=== PATIENT | male | born 1965 | race American Indian/Alaskan Native ===

== ENCOUNTER 2017-03-19 22:43 | Emergency (ER) | payer OTHER ==
[~2017-03-19] VITALS: Ht 180.3 cm; Wt 70.3 kg
[~2017-03-19 22:43] MED LIST: IBUPROFEN800 MG PO; NORCO 5-325 TA1 EACH PO; NYSTATIN100000 UN1 PO
== END 2017-03-19 23:19 | disposition home or self-care (01) ==
LOC: ED 22:43
DX: Z00.8 Encounter for other general examination (principal); R40.0 Somnolence
CPT/HCPCS: 99282

== ENCOUNTER 2017-07-12 19:12 | Emergency (ER) | payer OTHER ==
[~2017-07-12] VITALS: Ht 180.3 cm; Wt 70.3 kg
[2017-07-12] MEDS ORDERED: NYSTATIN100000 UN1 PO (19:48)
== END 2017-07-12 20:04 | disposition home or self-care (01) ==
LOC: ED 19:12
DX: K14.0 Glossitis (principal); F17.200 Nicotine dependence, unspecified, uncomplicated; Z86.19 Personal history of other infectious and parasitic diseases
CPT/HCPCS: 99282

== ENCOUNTER 2017-07-20 06:39 | Emergency (ER) | payer OTHER ==
[~2017-07-20] VITALS: Ht 180.3 cm; Wt 70.3 kg
[2017-07-20] MEDS ORDERED: ZITHROMAX250 MG PO (10:27)
== END 2017-07-20 10:45 | disposition home or self-care (01) ==
LOC: ED 06:39
DX: S20.211A Contusion of right front wall of thorax, initial encounter (principal); J40 Bronchitis, not specified as acute or chronic; F17.200 Nicotine dependence, unspecified, uncomplicated; X58.XXXA Exposure to other specified factors, initial encounter
CPT/HCPCS: 71020; 80053; 81001; 83690; 85025; 99283; G0480

== ENCOUNTER 2017-08-03 18:29 | Emergency (ER) | payer OTHER ==
[~2017-08-03] VITALS: Ht 180.3 cm; Wt 70.3 kg
[~2017-08-03 18:29] MED LIST changes: +ZITHROMAX250 MG PO
== END 2017-08-03 20:35 | disposition home or self-care (01) ==
LOC: ED 18:29
DX: S20.211A Contusion of right front wall of thorax, initial encounter (principal); F17.200 Nicotine dependence, unspecified, uncomplicated; Z86.19 Personal history of other infectious and parasitic diseases; Z79.2 Long term (current) use of antibiotics; W19.XXXA Unspecified fall, initial encounter; Y92.410 Unspecified street and highway as the place of occurrence of the external cause
CPT/HCPCS: 71020; 74177; 80053; 85025; 99284; G0480; Q9967

== ENCOUNTER 2017-08-25 16:08 | Emergency (ER) | payer OTHER ==
[~2017-08-25] VITALS: Ht 180.3 cm; Wt 70.3 kg
--- OUTSIDE RECORDS SUMMARY | ~2017-08-25 | XMS | Clinical Summary ---
Demographics + + + | Address | [address] | | | [place] [address] | + + + | Home Phone | | + + + | Preferred Language | Unknown | + + + | Marital Status | | + + + | Druze Affiliation | NON | + + + [...] MANUELA BARRERA | | [address] | [address] | +------+ + + + +-------+ Care Team Providers + +------+ + | Care Star Route Mail Driver Name | Role | Phone | + +------+ + PP | Unavailable | + +------+ + Source Comments BRAX[facility] is fully live on both [facility] Amb[facility] and [facility] InPatient.[facility] Allergies Not on File Current Medications Not [...]
== END 2017-08-25 16:20 | disposition home or self-care (01) ==
LOC: ED 16:08
DX: K13.70 Unspecified lesions of oral mucosa (principal)

== ENCOUNTER 2017-08-29 17:49 | Emergency (ER) | payer OTHER ==
[~2017-08-29] VITALS: Ht 180.3 cm; Wt 70.3 kg
--- OUTSIDE RECORDS SUMMARY | ~2017-08-29 | XMS | Clinical Summary ---
Demographics + + + | Address | [address] | | | [place] [address] | + + + | Home Phone | | + + + | Preferred Language | Unknown | + + + | Marital Status | | + + + | Jain Affiliation | NON | + + + [...] MANUELA BARRERA | | [address] | [address] | +------+ + + + +-------+ Care Team Providers + +------+ + | Care Toys And Games Hand Finisher Name | Role | Phone | + +------+ + PP | Unavailable | + +------+ + Source Comments [facility] is fully live on both [facility] Amb[facility] and [facility] InPatient.[facility] Allergies Not on File Current Medications [...]
[2017-08-29] MEDS ORDERED: NYSTATIN100000 UN1 PO (19:04)
== END 2017-08-29 19:28 | disposition home or self-care (01) ==
LOC: ED 17:49
DX: B37.0 Candidal stomatitis (principal); F17.200 Nicotine dependence, unspecified, uncomplicated
CPT/HCPCS: 99283

== ENCOUNTER 2017-09-11 22:34 | Emergency (ER) | payer OTHER ==
[~2017-09-11] VITALS: Ht 180.3 cm; Wt 70.3 kg
[2017-09-11] MEDS ORDERED: NYSTATIN100000 UN1 PO (23:14)
== END 2017-09-11 23:39 | disposition home or self-care (01) ==
LOC: ED 22:34
DX: K14.0 Glossitis (principal); F17.200 Nicotine dependence, unspecified, uncomplicated; Z86.19 Personal history of other infectious and parasitic diseases
CPT/HCPCS: 99282

== ENCOUNTER 2017-10-19 17:19 | Emergency (ER) | payer OTHER ==
[~2017-10-19] VITALS: Ht 180.3 cm; Wt 70.3 kg
--- OUTSIDE RECORDS SUMMARY | ~2017-10-19 | XMS | Clinical Summary ---
Demographics + + + | Address | [address] | | | [place] [address] | + + + | Home Phone [...] MANUELA BARRERA | | [address] | [address] | +------+ + + + +-------+ Care Team Providers + +------+ + | Care Anesthesia Technician Name | Role | Phone | + +------+ + PP | Unavailable | + +------+ + Source Comments [facility] is fully live on both [facility] Ambulatory and [facility] InPatient.[facility] Allergies Not on File Current Medications Not [...]
--- OUTSIDE RECORDS SUMMARY | ~2017-10-19 | XMS | Clinical Summary ---
Demographics + + + | Address | [address] | | | [place] [address] | + + + | Home Phone [...] MANUELA BARRERA | | [address] | [address] | +------+ + + + +-------+ Care Team Providers + +------+ + | Care Bush Regenerator Name | Role | Phone | + +------+ + PP | Unavailable | + +------+ + Source Comments [facility] is fully live on both [facility] Ambulatory and [facility] InPatient.[facility] Allergies Not on File Current Medications [...]
== END 2017-10-19 18:00 | disposition home or self-care (01) ==
LOC: ED 17:19
DX: B37.9 Candidiasis, unspecified (principal); F17.200 Nicotine dependence, unspecified, uncomplicated; Z86.19 Personal history of other infectious and parasitic diseases
CPT/HCPCS: 99283

== ENCOUNTER 2017-10-20 18:51 | Emergency (ER) | payer OTHER ==
[~2017-10-20] VITALS: Ht 180.3 cm; Wt 70.3 kg
--- OUTSIDE RECORDS SUMMARY | 2017-10-20 19:11 | XMS | Clinical Summary ---
Demographics + + + | Address | [address] | | | [place] [address] | + + + | Home Phone | | + + + | Preferred Language | Unknown | + + + | Marital Status | | + + + | Orthodoxy Affiliation | NON | + + + | Race | White | + + + | Ethnic Group | Not or | + + + Author + + + | Author | NON REVENUE LOCATIONS | + + + | Organization | NON REVENUE LOCATIONS | + + + | Address | Unknown | + + + | Phone | Unavailable | + + + Support +------+ + + + +-------+ | Name | Relationship | Address | Phone | +------+ + + + +-------+ ECON | [address] | | [place] | [address] | +------+ + + + +-------+ Care Team Providers + +------+ + | Care Curb Hop Name | Role | Phone | + +------+ + PP | Unavailable | + +------+ + Source Comments [facility] is fully live on both [facility] Amb[facility] and [facility] InPatient.[facility] Allergies Not on File Current Medications Not on file Active Problems Not on file Social History + +-------+ +--------+------+ | Tobacco Use | Types | Packs/Day | Years | Date | | | | | Used | | + +-------+ +--------+------+ | Never Assessed | | | | | + +-------+ +--------+------+ + + + | Sex Assigned at | Date Recorded | | | | + + + | Not on file | | + + + Plan of Treatment + + + + + | Health Maintenance | Due Date | Last Done | Comments | + + + + + | INFLUENZA VACCINE | | | | | (FLU SHOT) | 7 | | | + + + + + Results Not on filefrom Last 3 Months"
--- OUTSIDE RECORDS SUMMARY | 2017-10-20 19:11 | XMS | Clinical Summary ---
Demographics + + + | Address | [address] | | | [place] [address] | + + + | Home Phone | | + + + | Preferred Language | Unknown | + + + | Marital Status | | + + + | Spiritism Affiliation | NON | + + + [...] MANUELA BARRERA | | [address] | [address] | +------+ + + + +-------+ Care Team Providers + +------+ + | Care Wireless Cellular Technician Name | Role | Phone | + +------+ + PP | Unavailable | + +------+ + Source Comments [facility] is fully live on both [facility] Amb[facility] and [facility] InPatient.[facility] Allergies Not on File Current Medications Not [...]
== END 2017-10-20 19:28 | disposition home or self-care (01) ==
LOC: ED 18:51
DX: K14.0 Glossitis (principal); F17.200 Nicotine dependence, unspecified, uncomplicated
CPT/HCPCS: 99282

== ENCOUNTER 2017-11-01 05:46 | Emergency (ER) | payer OTHER ==
[~2017-11-01] VITALS: Ht 180.3 cm; Wt 70.3 kg
--- OUTSIDE RECORDS SUMMARY | ~2017-11-01 | XMS | Clinical Summary ---
Demographics + + + | Address | [address] | | | [place] [address] | + + + | Home Phone | | + + + | Preferred Language | Unknown | + + + | Marital Status | | + + + | Baptist Affiliation | NON | + + + [...] MANUELA BARRERA | | [address] | [address] | +------+ + + + +-------+ Care Team Providers + +------+ + | Care Tonsorial Artist Name | Role | Phone | + +------+ + PP | Unavailable | + +------+ + Source Comments [facility] is fully live on both [facility] Ambulatory and [facility] InPatient.[facility] Allergies Not on File Current [...]
--- OUTSIDE RECORDS SUMMARY | ~2017-11-01 | XMS | Clinical Summary ---
Demographics + + + | Address | [address] | | | [place] [address] | + + + | Home Phone [...] MANUELA BARRERA | | [address] | [address] | +------+ + + + +-------+ Care Team Providers + +------+ + | Care Creative Recruiter Name | Role | Phone | + +------+ + PP | Unavailable | + +------+ + Source Comments [facility] is fully live on both [facility] Ambulatory and [facility] InPatient.[facility] Allergies Not on File Current Medications [...]
[2017-11-01] MEDS ORDERED: NYSTATIN100000 UN1 PO (06:28)
== END 2017-11-01 06:39 | disposition home or self-care (01) ==
LOC: ED 05:46
DX: K14.0 Glossitis (principal); F17.200 Nicotine dependence, unspecified, uncomplicated
CPT/HCPCS: 99283

== ENCOUNTER → 2017-11-03 | Emergency (ER) | payer OTHER ==
[~2017-11-03] VITALS: Ht 180.3 cm; Wt 70.3 kg
[~2017-11-03] MED LIST changes: +DIFLUCAN100 MG PO; +ESSENTIAL DAIL1 EACH PO; +OMEPRAZOLE20 MG PO; +PANTOPRAZOLE SO40 MG PO
--- OUTSIDE RECORDS SUMMARY | ~2017-11-03 | XMS | Clinical Summary ---
Demographics + + + | Address | [address] | | | [place] [address] | + + + | Home Phone | | + + + | Preferred Language | Unknown | + + + | Marital Status | | + + + | Roman Catholic Affiliation | NON | + + [...] MANUELA BARRERA | | [address] | [address] | +------+ + + + +-------+ Care Team Providers + +------+ + | Care Learning Support Specialist Name | Role | Phone | + +------+ + PP | Unavailable | + +------+ + Source Comments [facility] is fully live on both [facility] Ambulatory and [facility] InPatient.[facility] Allergies Not on File Current Medications [...]
--- OUTSIDE RECORDS SUMMARY | ~2017-11-03 | XMS | Clinical Summary ---
Demographics + + + | Address | [address] | | | [place] [address] | + + + | Home Phone [...] MANUELA BARRERA | | [address] | [address] | +------+ + + + +-------+ Care Team Providers + +------+ + | Care Piecer Up Name | Role | Phone | + +------+ + PP | Unavailable | + +------+ + Source Comments [facility] is fully live on both [facility] Ambulatory and [facility] InPatient.[facility] Allergies Not [...]
== END ==
LOC: ED 01:31
DX: K14.0 Glossitis (principal); F17.200 Nicotine dependence, unspecified, uncomplicated; Z79.899 Other long term (current) drug therapy
CPT/HCPCS: 99282

== ENCOUNTER 2018-01-07 02:26 | Emergency (ER) | payer OTHER ==
[~2018-01-07] VITALS: Ht 180.3 cm; Wt 70.3 kg
--- OUTSIDE RECORDS SUMMARY | ~2018-01-07 | XMS | Clinical Summary ---
Demographics + + + | Address | [address] | | | [place] [address] | + + + | Home Phone [...] | + + + + + | LATOYA RAMIREZ | ECON | [address] | | | | | [place], [place] | | | | | [address] | | + + + + + Care Team Providers + +------+ + | Care Woodworker Name | Role | Phone | + +------+ + PP | Unavailable | + +------+ + Source Comments [facility] is fully live on both [facility] Ambulatory and [facility] InPatient.[facility] & [facility] Allergies Not on File Current Medications [...] | | | | (FLU SHOT) | 8 | | | + + + + + Results Not on filefrom Last 3 Months"
--- OUTSIDE RECORDS SUMMARY | ~2018-01-07 | XMS | Clinical Summary ---
Demographics + + + | Address | [address] | | | [place] [address] | + + + | Home Phone [...] [place] | | | | | [address] | | + + + + + Care Team Providers + +------+ + | Care Loss Prevention Detective Name | Role | Phone | + +------+ + PP | Unavailable | + +------+ + Source Comments [facility] is fully live on both [facility] Ambulatory and [facility] InPatient.[facility] & [facility] Allergies Not on File Current [...]
[~2018-01-07 02:26] MED LIST changes: -DIFLUCAN100 MG PO; -ESSENTIAL DAIL1 EACH PO; -OMEPRAZOLE20 MG PO; -PANTOPRAZOLE SO40 MG PO
== END 2018-01-07 03:34 | disposition home or self-care (01) ==
LOC: ED 02:26
DX: S93.502A Unspecified sprain of left great toe, initial encounter (principal); S93.505A Unspecified sprain of left lesser toe(s), initial encounter; F17.200 Nicotine dependence, unspecified, uncomplicated; W23.0XXA Caught, crushed, jammed, or pinched between moving objects, initial encounter
CPT/HCPCS: 73630; 99283

== ENCOUNTER 2018-01-16 07:22 | Emergency (ER) | payer OTHER ==
[~2018-01-16] VITALS: Ht 180.3 cm; Wt 70.3 kg
--- OUTSIDE RECORDS SUMMARY | ~2018-01-16 | XMS | Clinical Summary ---
Demographics + + + | Address | [address] | | | [place] [address] | + + + | Home Phone [...] [place] | | | | | [address] | | + + + + + Care Team Providers + +------+ + | Care Information Security Associate Name | Role | Phone | + +------+ + PP | Unavailable | + +------+ + Source Comments B[facility] is fully live on both [facility] Ambulatory and [facility] InPatient.[facility] & [facility] Allergies Not on File Current Medications [...]
--- OUTSIDE RECORDS SUMMARY | ~2018-01-16 | XMS | Clinical Summary ---
Demographics + + + | Address | [address] | | | [place] [address] | + + + | Home Phone [...] [place] | | | | | [address] | | + + + + + Care Team Providers + +------+ + | Care Gear Lapper Name | Role | Phone | + +------+ + PP | Unavailable | + +------+ + Source Comments B[facility] is fully live on both [facility] Ambulatory and [facility] InPatient.[facility] Allergies Not on File Current Medications Not [...]
[2018-01-16] MEDS ORDERED: OMEPRAZOLE20 MG PO (10:41)
[2018-01-16] MEDS ORDERED: ESSENTIAL DAIL1 EACH PO (10:41)
[2018-01-17] MEDS ORDERED: DIFLUCAN100 MG PO (17:05)
[2018-01-17] MEDS ORDERED: PANTOPRAZOLE SO40 MG PO (17:05)
== END 2018-01-16 10:50 | disposition home or self-care (01) ==
LOC: ED 07:22
DX: K29.20 Alcoholic gastritis without bleeding (principal); F17.200 Nicotine dependence, unspecified, uncomplicated
CPT/HCPCS: 36415; 80053; 83690; 85025; 99283; J7030

== ENCOUNTER 2018-01-17 16:50 | Emergency (ER) | payer OTHER ==
[~2018-01-17] VITALS: Ht 180.3 cm; Wt 70.3 kg
--- OUTSIDE RECORDS SUMMARY | ~2018-01-17 | XMS | Clinical Summary ---
Demographics + + + | Address | [address] | | | [place] [address] | + + + | Home Phone | | + + + | Preferred Language | Unknown | + + + | Marital Status | | + + + | Faith Affiliation | NON | + + + [...] [place] | | | | | [address] | | + + + + + Care Team Providers + +------+ + | Care Dialysis Technician Name | Role | Phone | + +------+ + PP | Unavailable | + +------+ + Source Comments [facility] is fully live on both [facility] Ambulatory and [facility] InPatient.[facility] Allergies Not on File Current Medications Not [...]
--- OUTSIDE RECORDS SUMMARY | ~2018-01-17 | XMS | Clinical Summary ---
Demographics + + + | Address | [address] | | | [place] [address] | + + + | Home Phone [...] [place] | | | | | [address] | | + + + + + Care Team Providers + +------+ + | Care Tube Blower Name | Role | Phone | + +------+ + PP | Unavailable | + +------+ + Source Comments [facility] is fully live on both [facility] Ambulatory and [facility] InPatient.[facility] Allergies Not on File Current [...]
[~2018-01-17 16:50] MED LIST changes: +ESSENTIAL DAIL1 EACH PO; +OMEPRAZOLE20 MG PO
[2018-01-17] MEDS ORDERED: PANTOPRAZOLE SO40 MG PO (17:05)
[2018-01-17] MEDS ORDERED: DIFLUCAN100 MG PO (17:05)
== END 2018-01-17 17:10 | disposition home or self-care (01) ==
LOC: ED 16:50
DX: B37.0 Candidal stomatitis (principal); K21.9 Gastro-esophageal reflux disease without esophagitis; F17.200 Nicotine dependence, unspecified, uncomplicated; Z79.899 Other long term (current) drug therapy
CPT/HCPCS: 99283

== ENCOUNTER 2018-05-27 19:58 | Emergency (ER) | payer OTHER ==
[~2018-05-27] VITALS: Ht 180.3 cm; Wt 70.3 kg
--- OUTSIDE RECORDS SUMMARY | ~2018-05-27 | XMS | Clinical Summary ---
Demographics + + + | Address | [address] | | | [place] [address] | + + + | Home Phone [...] [place] | | | | | [address] | | + + + + + Care Team Providers + +------+ + | Care Dry Cell Tester Name | Role | Phone | + +------+ + PP | Unavailable | + +------+ + Source Comments BRAXTON is fully live on both [facility] Ambulatory and [facility] InPatient.[facility] Allergies Not on File Current [...] filefrom Last 3 Months Insurance + +--------+ +--------+-------+---------+ | Payer | Benefi | Subscriber | Type | Phone | Address | | | t Plan | ID | | | | | | / | | | | | | | Group | | | | | + +--------+ +--------+-------+---------+ | [employer] | [employer] | xxxxxxxxx | Agency | | | | SERVICE | | | | | | | | HEALTH | | | | | | | | | | | | | | SERVIC | | | | | | | E | | | | | + +--------+ +--------+-------+---------+ + +--------+ +--------+ + + | Guarantor Name | Accoun | Relation to | Date | Phone | Billing Address | | | t Type | Patient | of | | | | | | | | | | + +--------+ +--------+ + + | MIGUEL A RAMIREZ | Person | Self [birth year] | Home: | [address] | | | al/Fam | | 1965 | +- | [place], [place] | | | [place] | | | [phone] | [phone] | + +--------+ +--------+ + + | MIGUEL A RAMIREZ | Third | Self | [birth year] | Home: | [address] | | | Libertarian | | 1965 | +- | [place], [place] | | | Liabil | | | [phone] | [phone] | | | ity | | | | | + +--------+ +--------+ + +"
--- OUTSIDE RECORDS SUMMARY | ~2018-05-27 | XMS | Clinical Summary ---
Demographics + + + | Address | [address] | | | [place] [address] | + + + | Home Phone [...] [place] | | | | | [address] | | + + + + + Care Team Providers + +------+ + | Care Energy Scheduler Name | Role | Phone | + +------+ + PP | Unavailable | + +------+ + Source Comments BRAX[facility] is fully live on both [facility] Ambulatory and [facility] InPatient.[facility] Allergies Not on File Current Medications Not [...] | | | + +--------+ +--------+-------+---------+ | [facility] | [place] | xxxxxxxxx | Agency | | | [...] | [place] | | | [phone] | [phone] | + +--------+ +--------+ + + | MIGUEL A RAMIREZ | Third | Self | [birth year] | Home: | [address] | | | [employer] | | 1965 | +- | [place], [place] | | | Liabil | | | [phone] | [phone] | | | ity | | | | | + +--------+ +--------+ + +"
[~2018-05-27 19:58] MED LIST changes: +DIFLUCAN100 MG PO; +PANTOPRAZOLE SO40 MG PO
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
[2018-05-27] MEDS ORDERED: DIFLUCAN100 MG PO (20:33)
== END 2018-05-27 20:48 | disposition home or self-care (01) ==
LOC: ED 19:58
DX: B37.0 Candidal stomatitis (principal); F10.129 Alcohol abuse with intoxication, unspecified; F17.200 Nicotine dependence, unspecified, uncomplicated; Z79.899 Other long term (current) drug therapy
CPT/HCPCS: 99282

== ENCOUNTER 2019-01-26 00:30 | Emergency (ER) | payer OTHER ==
[~2019-01-26] VITALS: Ht 180.3 cm; Wt 70.3 kg
--- OUTSIDE RECORDS SUMMARY | ~2019-01-26 | XMS | Encounter Summary ---
Demographics + + + | Address | [address] | | | [place] [address] | + + + | Home Phone | | + + + | Preferred Language | Unknown | + + + | Marital Status | | + + + | Presybeterian Affiliation | NON | + + + [...] [place], [place] | | | | | [address] | | + + + + + Care Team Providers + +------+ + | Care Quill Skinner Name | Role | Phone | + +------+ + PCP | Unavailable | + +------+ + Encounter Details +--------+ + + + + | Date | Type | Department | Care Team | Description | +--------+ + + + + | 03/03/ | Respiratory | | Other, Faculty | | | 2005 | Therapy | | [phone] | | +--------+ + + + + [...] | + +--------+ + + + | DIAGNOSTICS | Routin | 03/03/2006 | | Results for this | | | e | 7:59 AM | | procedure are in the | | | | PDT | | results section. | + +--------+ + + + documented in this encounter Results DIAGNOSTICS (03/03/2006 7:59 AM PDT) + + + + + + | Component | Value | Ref Range | Performed | Pathologist | | | | | At | Signature | + + + + + + | [facility] | CONTINUOUS PULSE | | | | | DIAGNOSTICS | OXIMETRY IN USE. Kenny | | | | | | [facility] | | | | + + + [...] | + + + + + | [facility] | [address] | [place], [place] | | | DIAGNOSTICS - | [place]AR | [address] | | | PULMONARY FUNCTION | | | | + + + + + documented in this encounter Visit Diagnoses Not on filedocumented in this encounter"
--- OUTSIDE RECORDS SUMMARY | ~2019-01-26 | XMS | Clinical Summary ---
Demographics + + + | Address | [address] | | | [place] [address] | + + + | Home Phone | | + + + | Preferred Language | Unknown | + + + | Marital Status | | + + + | Yazdanism Affiliation | NON | + + + [...] | Yanni Antoine | ECON | [address] | | | | | [place], [place] | | | | | [address] | | + + + + + Care Team Providers + +------+ + | Care Boxing Trainer Name | Role | Phone | + +------+ + PP | Unavailable | + +------+ + Source Comments [facility] is fully live on both [facility] Ambulatory and [facility] InPatient.[facility] Allergies Not on File Medications Not on file Active Problems Not [...] recent travel history available. | + + Plan of Treatment + + + + + | Health Maintenance | Due Date | Last Done | Comments | + + + + + | Influenza (Flu) | | | | | vaccination (Season | 9 | | | | Ended) | | | | + + + + + Results Not on filefrom Last 3 Months Insurance + +--------+ +--------+-------+---------+--------+ | Payer | Benefi | Subscriber | Effect | Phone | Address | Type | | | t Plan | ID | sudheer | | | | | | / | | Dates | | | | | | Group | | | | | | + +--------+ +--------+-------+---------+--------+ | HEALTH | | xxxxxxxxx | Effect | | | Agency | | SERVICE | | | sudheer | | | | | | HEALTH | | for | | | | | | | | all | | | | | | SERVIC | | dates | | | | | | E | | | | | | + +--------+ +--------+-------+---------+--------+ + +--------+ +--------+ + + | Guarantor Name | Accoun | Relation to | Date | Phone | Billing Address | | | t Type | Patient | of | | | | | | | | | | + +--------+ +--------+ + + | Odilon Antoine | Person | Self | [birth year] | | [address] | | | al/Fam | | 1965 | [phone] | [place], [place] | | | [place] | | | [address] (Home) | [phone] | + +--------+ +--------+ + + | Odilon Antoine | Third | Self | [birth year] | | [address] | | | [employer] | | 1965 | [phone] | [place], [place] | | | Li[place] | | | 4 (Home) | [phone] | | | ity | | | | | + +--------+ +--------+ + +"
--- OUTSIDE RECORDS SUMMARY | ~2019-01-26 | XMS | Encounter Summary ---
Demographics + + + | Address | [address] [facility] [facility] | | | [place] [address] | + + + | Home Phone | | + + + | Preferred Language | Unknown | + + + | Marital Status | | + + + | Judaism Affiliation | NON | + + + [...] [place], [place] | | | | | [address] | | + + + + + Care Team Providers + +------+ + | Care Clinical Associate Name | Role | Phone | + +------+ + PCP | Unavailable | + +------+ + Encounter Details +--------+ + + + + | Date | Type | Department | Care Team | Description | +--------+ + + + + | 03/19/ | Respiratory | | Other, Faculty | | | 2005 | Therapy | | [phone] | | +--------+ + + + + [...] + | MEDICAL GAS/HUMIDITY | Routin | 03/19/2006 | | Results for this | | | e | 3:14 PM | | procedure are in the | | | | PDT | | results section. | + +--------+ + + + documented in this encounter Results MEDICAL GAS/HUMIDITY (03/19/2006 3:14 PM PDT) + + + + + + | Component | Value | Ref Range | Performed | Pathologist | | | | | At | Signature | + + + + + + | [facility] | OXYGEN OR HUMIDITY ON | | | | | GAS/HUMIDIT | LABY. Onur | | | | | Y | DYLAN RuedaP | | | | + + + [...] [facility] | [address] | [place], [place] | | | DIAGNOSTICS - | [address] | [address] | | | PULMONARY FUNCTION | | | | + + + + + documented in this encounter Visit Diagnoses Not on filedocumented in this encounter"
--- OUTSIDE RECORDS SUMMARY | ~2019-01-26 | XMS | Encounter Summary ---
Demographics + + + | Address | [address] [facility] | | | [place] [address] | + + + | Home Phone | | + + + | Preferred Language | Unknown | + + + | Marital Status | | + + + | Catholic Affiliation | NON | + + + [...] [place], [place] | | | | | [address] | | + + + + + Care Team Providers + +------+ + | Care Retail Wireless Sales Consultant Name | Role | Phone | + +------+ + PCP | Unavailable | + +------+ + Encounter Details +--------+ + + + + | Date | Type | Department | Care Team | Description | +--------+ + + + + | 02/15/ | Procedure - | | Record, Operation | Operative Report | | 2006 | | | | | | | Transcribed | | | | +--------+ + + [...] | + +--------+ + + + | OPERATION RECORD | | 02/15/2006 | | Results for this | | | | | | procedure are in the | | | | | | results section. | + +--------+ + + + documented in this encounter Results OPERATION RECORD (02/15/2006) + + | Transcriptions | + + | Interface, Bsa/Aml Compliance Officer In - 03/08/2006 2:08 AM PDT | | [id number] | | [id number] ASHLEY Peck [id number] | | | | Date: 02/15/2006 | | | | Attending Surgeon: Thai De La Garza M.D., DeepthiCRamiroS. | | | | Stone Belt Sander(s): Ángel Horne M.D. | | | | | | Preoperative Diagnosis(es): | | Respiratory failure and IV phlebitis. | | | | Postoperative Diagnosis(es): | | Respiratory failure and IV phlebitis. | | | | Procedures Performed: | | Insertion of left subclavian catheter. | | | | Anesthesia: | | General. | | | | Complications: | | None. | | | | Specimens: | | | | Indications: | | | | Procedure: | | In the supine position, the patient is prepped and draped in the usual | | sterile fashion about the left chest and neck; 8 mL of 1% lidocaine was | | inserted in the usual position and around the left clavicle. The needle | | was inserted into the left subclavian vein without complication. A | | guidewire was then placed with ease. The needle was removed. The skin was | | incised. The dilator is then inserted over the guidewire and removed. The | | triple-lumen catheter was then placed over the guidewire and inserted into | | the subclavian vein with ease. The guidewire was removed. The ports francisco | | and flushed x3 with ease. The catheter was then sutured in place with 3 | | sutures and a sterile dressing was applied. A postoperative chest x-ray | | shows no pneumothorax and good position of the central venous catheter. No | | complications noted. | | | | I do attest Dr. Thai De La Garza was present for the entirety of the case. | | | | | | | | | | Ángel Horne M.D. | | | | | | | | Thai De La Garza M.D., F.A.C.S. | | supervisor policy change clerks @ [employer] | | | | AWP / HS | | [phone] / [phone] / [phone] / | | | | | | | | | | | | Electronically signed by Thai De La Garza 03-07-2006 06:59:29 AM | + + documented in this encounter Visit Diagnoses Not on filedocumented in this encounter"
--- OUTSIDE RECORDS SUMMARY | ~2019-01-26 | XMS | Encounter Summary ---
Demographics + + + | Address | [address] [facility] | | | [place] [address] | + + + | Home Phone | | + + + | Preferred Language | Unknown | + + + | Marital Status | | + + + | Protestant Affiliation | NON | + + + [...] [place], [place] | | | | | [address] | | + + + + + Care Team Providers + +------+ + | Care Data Entry Assistant Name | Role | Phone | + +------+ + PCP | Unavailable | + +------+ + Encounter Details +--------+ + + + + | Date | Type | Department | Care Team | Description | +--------+ + + + + | 03/13/ | Respiratory | | Other, Faculty | | | 2005 | Therapy | | [phone] | | +--------+ + + + + [...] + | MEDICAL GAS/HUMIDITY | Routin | 03/13/2006 | | Results for this | | | e | 4:50 PM | | procedure are in the | | | | PDT | | results section. | + +--------+ + + + documented in this encounter Results MEDICAL GAS/HUMIDITY (03/13/2006 4:50 PM PDT) + + + + + + | Component | Value | Ref Range | Performed | Pathologist | | | | | At | Signature | + + + + + + | [facility] | HEATED HUMIDITY AT 24 % | | | | | GAS/HUMIDIT | OXYGEN. DYLAN GarzaP | | | | | Y |Yung Boss, YEAST WASHER | | | | + + + [...] [facility] | [address] | [place], [place] | | | DIAGNOSTICS - | [address] | [address] | | | PULMONARY FUNCTION | | | | + + + + + documented in this encounter Visit Diagnoses Not on filedocumented in this encounter"
--- OUTSIDE RECORDS SUMMARY | ~2019-01-26 | XMS | Encounter Summary ---
Demographics + + + | Address | [address] [facility] | | | [place] [address] | + + + | Home Phone | | + + + | Preferred Language | Unknown | + + + | Marital Status | | + + + | Buddhism Affiliation | NON | + + + | Race | White | + + + | Ethnic Group | Not or | + + + Author + + + | Author | [facility] | + + + | Organization | [facility] | + + + | Address | Unknown | + + + | Phone | Unavailable | + + + Support + + + + + | Name | Relationship | Address | Phone | + + + + + | Yanni Antoine | ECON | [address] | | | | | [place], [place] | | | | | [address] | | + + + + + Care Team Providers + +------+ + | Care Tv Host Name | Role | Phone | + +------+ + PCP | Unavailable | + +------+ + Encounter Details +--------+ + + + + | Date | Type | Department | Care Team | Description | +--------+ + + + + | 02/09/ | Results | General Surgery | Thai De La Garza, | | | 2005 | Only | [address] MD | | | | | [facility] | | | | | | Mailcode: [id number] | | | | | | [place] | | | | | | [address] [place], | | | | | | [place] [address] | | | | | | [phone] | | | +--------+ + + + [...] | + +--------+ + + + | X-RAY CHEST 1 VIEW | Routin | 02/09/2006 | | Results for this | | | e | 8:23 PM | | procedure are in the | | | | PDT | | results section. | + +--------+ + + + documented in this encounter Results CHEST 1 VIEW (02/09/2006 8:23 PM PDT) + + + + + + | Component | Value | Ref Range | Performed | Pathologist | | | | | At | Signature | + + + + + + | CHEST, 1 | Radiologist 1: CORINNA, | | | | | VIEW | VALDEMAR-Radiologist 2: | | | | | | KATHIE MORALES: AP | | | | | | chest. COMPARISON: None. | | | | | | CLINICAL HISTORY: | | | | | | Endotracheal tube, | | | | | | enteric tube, and right | | | | | | chesttube are seen. The | | | | | | right pneumothorax is | | | | | | not seen on this supine | | | | | | chestradiograph. Righ | | | | | | t pulmonary | | | | | | consolidation and ground | | | | | | glassopacities | | | | | | represent aspiration, | | | | | | atelectasis and | | | | | | contusion.Extensive soft | | | | | | tissue air is seen in | | | | | | the right lateral chest | | | | | | wall.There is left | | | | | | perihilar and lower lobe | | | | | | atelectasis. | | | | | | Pneumomediastinum is | | | | | | again seen. There are | | | | | | right-sided | | | | | | ribfractures, | | | | | | specifically involving | | | | | | the lateral 7th, 8th, | | | | | | and 9thribs. IMPRESSION: | | | | | | 1. Pneumothorax | | | | | | demonstrated on CT not | | | | | | seen on this supine | | | | | | chestradiograph. | | | | | | 2. Pneumomediastinum. | | | | | | 3. Right pulmonary | | | | | | consolidation and ground | | | | | | glass | | | | | | opacificationrepresentin | | | | | | g contusion, | | | | | | atelectasis, and | | | | | | aspiration. | | | | | | 4. Multiple | | | | | | right-sided rib | | | | | | fractures. 5. Mild | | | | | | left perihilar and lower | | | | | | lobe atelectasis. | | | | + + + + + + + + | Specimen | + + | | + + + +---------+ + + | Performing | Address | City/State/[facility] | Phone Number | | Organization | | | | + +---------+ + + | [facility] | | | | | RADIOLOGY | | | | + +---------+ + + documented in this encounter Visit Diagnoses Not on filedocumented in this encounter"
--- OUTSIDE RECORDS SUMMARY | ~2019-01-26 | XMS | Encounter Summary ---
Demographics + + + | Address | [address] | | | [place] [address] | + + + | Home Phone [...] [place], [place] | | | | | [address] | | + + + + + Care Team Providers + +------+ + | Care Marketing Community Liaison Name | Role | Phone | + +------+ + PCP | Unavailable | + +------+ + Encounter Details +--------+ + + + + | Date | Type | Department | Care Team | Description | +--------+ + + + + | 03/06/ | Respiratory | | Other, Faculty | | | 2005 | Therapy | | [phone] | | +--------+ + + + + [...] + | MEDICAL GAS/HUMIDITY | Routin | 03/06/2006 | | Results for this | | | e | 1:24 PM | | procedure are in the | | | | PDT | | results section. | + +--------+ + + + documented in this encounter Results MEDICAL GAS/HUMIDITY (03/06/2006 1:24 PM PDT) + + + + + + | Component | Value | Ref Range | Performed | Pathologist | | | | | At | Signature | + + + + + + | [facility] | HEATED HUMIDITY AT 24 % | | | | | GAS/HUMIDIT | OXYGENRamiro Bazan, | | | | | Y | ADJUSTER AND INSPECTOR | | | | + + + [...] [facility] | [address] | [place] | | | DIAGNOSTICS - | [address] | [address] | | | PULMONARY FUNCTION | | | | + + + + + documented in this encounter Visit Diagnoses Not on filedocumented in this encounter"
--- OUTSIDE RECORDS SUMMARY | ~2019-01-26 | XMS | Encounter Summary ---
Demographics + + + | Address | [address] [facility] | | | [place] [address] | + + + | Home Phone | | + + + | Preferred Language | Unknown | + + + | Marital Status | | + + + | Congregational Affiliation | NON | + + + | Race | White | + + + | Ethnic Group | Not or | + + + Author + + + | Author | [facility] | + + + | Organization | [facility] | + + + | Address | Unknown | + + + | Phone | Unavailable | + + + Support + + + + + | Name | Relationship | Address | Phone | + + + + + | Yanni Antoine | ECON | [address] | | | | | [place], [place] | | | | | [address] | | + + + + + Care Team Providers + +------+ + | Care Procedure Analyst Name | Role | Phone | + [...] | | | | | [facility] | | | | | | Mailcode: [id number] | | | | | | [place] | | | | | | [address] [place], | | | | | | [place] [address] | | | | | | [phone] | | | +--------+ + + + [...] + + | Performing | Address | City/State/[facility] | Phone Number | | Organization | | | | + +---------+ + + | [facility] OF | | | | | RADIOLOGY | | | | + +---------+ + + documented in this encounter Visit Diagnoses Not on filedocumented in this encounter"
--- OUTSIDE RECORDS SUMMARY | ~2019-01-26 | XMS | Encounter Summary ---
Demographics + + + | Address | [address] [facility] [facility] [facility] | | | [place] [address] | + + + | Home Phone | | + + + | Preferred Language | Unknown | + + + | Marital Status | | + + + | Mandaen Affiliation | NON | + + + [...] [place], [place] | | | | | [address] | | + + + + + Care Team Providers + +------+ + | Care Telegraph Installer Name | Role | Phone | + +------+ + PCP | Unavailable | + +------+ + Encounter Details +--------+ + + + + | Date | Type | Department | Care Team | Description | +--------+ + + + + | 03/15/ | Respiratory | | Other, Faculty | | | 2005 | Therapy | | [phone] | | +--------+ + + + + [...] + | MEDICAL GAS/HUMIDITY | Routin | 03/15/2006 | | Results for this | | | e | 9:40 AM | | procedure are in the | | | | PDT | | results section. | + +--------+ + + + documented in this encounter Results MEDICAL GAS/HUMIDITY (03/15/2006 9:40 AM PDT) + + + + + + | Component | Value | Ref Range | Performed | Pathologist | | | | | At | Signature | + + + + + + | [facility] | HEATED HUMIDITY AT 24 % | | | | | GAS/HUMIDIT | OXYGEN. DYLAN GarzaP | | | | | Y |Yung Boss, TRADING SPECIALIST | | | | + + + [...] [facility] | [address] | [place], [place] | | | DIAGNOSTICS - | [address] | [address] | | | PULMONARY FUNCTION | | | | + + + + + documented in this encounter Visit Diagnoses Not on filedocumented in this encounter"
--- OUTSIDE RECORDS SUMMARY | ~2019-01-26 | XMS | Encounter Summary ---
Demographics + + + | Address | [address] [facility] | | | [place] [address] | + + + | Home Phone | | + + + | Preferred Language | Unknown | + + + | Marital Status | | + + + | Quaker Affiliation | NON | + + + [...] [place], [place] | | | | | [address] | | + + + + + Care Team Providers + +------+ + | Care Security Supervisor Name | Role | Phone | + +------+ + PCP | Unavailable | + +------+ + Encounter Details +--------+ + + + + | Date | Type | Department | Care Team | Description | +--------+ + + + + | 03/04/ | Respiratory | | Other, Faculty | | | 2005 | Therapy | | [phone] | | +--------+ + + + + [...] this | | TREATMENTS | e | 2:34 AM | | procedure are in the | | | | PDT | | results section. | + +--------+ + + + documented in this encounter Results ADULT AND SHRINERS TREATMENTS (03/04/2006 2:34 AM PDT) + + + + + + | Component | Value | Ref Range | Performed | Pathologist | | | | | At | Signature | + + + + + + | [facility] | PATIENTS PAIN ASSESSED | | | | | TREATMENTS | AND WAS ZERO ON A SCALE | | | | | | OF ZERO TO 10. | | | | | | SUCTIONED .DIMINISHED | | | | | | BILATERAL . REQUIRES | | | | | | SUCTION: THICK YELLOW | | | | | | SPUTUM. BREATH | | | | | | SOUNDSIMPROVED MODERATE | | | | | | IMPROVEMENTS AFTER | | | | | | TREATMENT HEATED | | | | | | HUMIDITY AT 31 %OXYGEN. | | | | | | Hank Vora RRT | | | | + + + [...] + + + | [facility] | [address] | [place] | | | DIAGNOSTICS - | [address] | [address] | | | PULMONARY FUNCTION | | | | + + + + + documented in this encounter Visit Diagnoses Not on filedocumented in this encounter"
--- OUTSIDE RECORDS SUMMARY | ~2019-01-26 | XMS | Encounter Summary ---
Demographics + + + | Address | [address] [facility] | | | [place] [address] | + + + | Home Phone | | + + + | Preferred Language | Unknown | + + + | Marital Status | | + + + | Restoration Affiliation | NON | + + + [...] [place], [place] | | | | | [address] | | + + + + + Care Team Providers + +------+ + | Care Mate First Name | Role | Phone | + +------+ + PCP | Unavailable | + +------+ + Encounter Details +--------+ + + + + | Date | Type | Department | Care Team | Description | +--------+ + + + + | 02/19/ | Procedure - | | Record, Operation [...] + + | OPERATION RECORD | | 02/19/2006 | | Results for this | | | | | | procedure are in the | | | | | | results section. | + +--------+ + + + documented in this encounter Results OPERATION RECORD (02/19/2006) + + | Transcriptions | + + | Interface, Brass Burnisher In - 03/01/2006 2:08 AM PDT | | [id number] | | [id number] ASH[place] Peck [id number] | | | | Date: 02/19/2006 | | | | Attending Surgeon: Ranjit Dobson M.D. | | | | Senior Auditor(s): Ángel Horne M.D. | | Frankie Miles M.D. | | | | Postoperative Diagnosis(es): | | | | Procedures Performed: | | Flexible bronchoscopy and closed catheter sampling for culture. | | | | Anesthesia: | | | | Complications: | | None known. | | | | Specimens: | | 1. Brushings from the right lower lobe for culture. | | 2. Bronchioalveolar lavage aspiration. | | | | | | Indications: | | Mr. Donald is a trauma patient who has increasing opacity in the right lower | | lobe with fevers and increasing oxygen demands, unable to tolerate a trach | | collar. | | | | Findings: | | Fairly clear secretions in bilateral lungs. | | | | Procedure: | | The patient was preoxygenated with 100% FiO2. The flexible bronchoscopy | | was inserted and directed to the right lower lobe where aspirations were | | performed. The mucosa was pink without significant sign of inflammation to | | the level that was reached with the bronchoscope. The closed catheter | | sampling glass was inserted and directed downward through the bronchioles, | | and a culture was obtained. A range of the bronchoscopy including the | | branches of the left main stem were visualized and no significant | | inflammation or lesions were identified. | | | | Disposition: | | A postprocedure chest x-ray is to be performed. | | | | I attest that Dr. Dobson was present for the procedure. | | | | | | | | | | Ángel Horne M.D. | | | | | | | | Ranjit Dobson M.D. | | | | AWP / HS | | [id number] / [id number] / [id number] / [phone] | | | | | | | | | | | | Electronically signed by Ranjit Dobson 02-28-2006 04:32:41 PM | | [id number], Account: [id number], DocSeq: [id number] | | Persuant to medicare and medicaid regulations, I was present for the | | critical portions of the procedure. | | Electronically signed by Ranjit Dobson 02-28-2006 04:33:37 PM | + + documented in this encounter Visit Diagnoses Not on filedocumented in this encounter"
--- OUTSIDE RECORDS SUMMARY | ~2019-01-26 | XMS | Encounter Summary ---
Demographics + + + | Address | [address] | | | [place] [address] | + + + | Home Phone | | + + + | Preferred Language | Unknown | + + + | Marital Status | | + + + | Christianity Affiliation | NON | + + + [...] [place], [place] | | | | | [address] | | + + + + + Care Team Providers + +------+ + | Care Management Expert Name | Role | Phone | + +------+ + PCP | Unavailable | + +------+ + Encounter Details +--------+ + + + + | Date | Type | Department | Care Team | Description | +--------+ + + + + | 03/16/ | Respiratory | | Other, Faculty | | | 2005 | Therapy | | [phone] | | +--------+ + + + + [...] + | MEDICAL GAS/HUMIDITY | Routin | 03/16/2006 | | Results for this | | | e | 12:18 AM | | procedure are in the | | | | PDT | | results section. | + +--------+ + + + documented in this encounter Results MEDICAL GAS/HUMIDITY (03/16/2006 12:18 AM PDT) + + + + + + | Component | Value | Ref Range | Performed | Pathologist | | | | | At | Signature | + + + + + + | [facility] | HEATED HUMIDITY AT 24 % | | | | | GAS/HUMIDIT | AFIA. Irina Luo, | | | | | Y | COATER HAND | | | | + + + [...] [facility] | [address] | [place] | | | DIAGNOSTICS - | [address] | [address] | | | PULMONARY FUNCTION | | | | + + + + + documented in this encounter Visit Diagnoses Not on filedocumented in this encounter"
--- OUTSIDE RECORDS SUMMARY | ~2019-01-26 | XMS | Encounter Summary ---
Demographics + + + | Address | [address] [facility] | | | [place] [address] | + + + | Home Phone | | + + + | Preferred Language | Unknown | + + + | Marital Status | | + + + | Yarsani Affiliation | NON | + + + [...] [place], [place] | | | | | [address] | | + + + + + Care Team Providers + +------+ + | Care Automobile Accessories Installer Name | Role | Phone | + +------+ + PCP | Unavailable | + +------+ + Encounter Details +--------+ + + + + | Date | Type | Department | Care Team | Description | +--------+ + + + + | 03/16/ | Respiratory | | Other, Faculty | | | 2005 | Therapy | | [phone] | | +--------+ + + + + [...] for this | | | e | 8:15 AM | | procedure are in the | | | | PDT | | results section. | + +--------+ + + + documented in this encounter Results MEDICAL GAS/HUMIDITY (03/16/2006 8:15 AM PDT) + + + + + + | Component | Value | Ref Range | Performed | Pathologist | | | | | At | Signature | + + + + + + | [facility] | HEATED HUMIDITY AT 24 % | | | | | GAS/HUMIDIT | OXYGEN. PATIENTS | | | | | Y | PAIN ASSESSED AND WAS | | | | | | ZERO ON ASCALE OF ZERO | | | | | | TO 10. SUCTIONED . | | | | | | RHONCHI [address] . | | | | | | REQUIRES SUCTION:THICK | | | | | | YELLOW SPUTUM. BREATH | | | | | | SOUNDS IMPROVED Nelson | | | | | | MARLENE Gray | | | | + + + [...] + + + | [facility] | [address] | [place] | | | DIAGNOSTICS - | [address] | [address] | | | PULMONARY FUNCTION | | | | + + + + + documented in this encounter Visit Diagnoses Not on filedocumented in this encounter"
--- OUTSIDE RECORDS SUMMARY | ~2019-01-26 | XMS | Encounter Summary ---
Demographics + + + | Address | [address] [facility] [facility] | | | [place] [address] | + + + | Home Phone | | + + + | Preferred Language | Unknown | + + + | Marital Status | | + + + | Mandaeism Affiliation | NON | + + + [...] [place], [place] | | | | | [address] | | + + + + + Care Team Providers + +------+ + | Care Hair Preparer Name | Role | Phone | + +------+ + PCP | Unavailable | + +------+ + Encounter Details +--------+ + + + + | Date | Type | Department | Care Team | Description | +--------+ + + + + | 02/27/ | Respiratory | | Other, Faculty | | | 2005 | Therapy | | [phone] | | +--------+ + + + + [...] | ADULT AND SHRINERS | Routin | 02/27/2006 | | Results for this | | TREATMENTS | e | 10:00 PM | | procedure are in the | | | | PDT | | results section. | + +--------+ + + + documented in this encounter Results ADULT AND SHRINERS TREATMENTS (02/27/2006 10:00 PM PDT) + + + + + [...] | | | | | SOUNDS IMPROVED Noelle | | | | | | MARLENE Rothman | | | | + + + [...] [facility] | [address] | [place], [place] | | | DIAGNOSTICS - | [address] | [address] | | | PULMONARY FUNCTION | | | | + + + + + documented in this encounter Visit Diagnoses Not on filedocumented in this encounter"
--- OUTSIDE RECORDS SUMMARY | ~2019-01-26 | XMS | Encounter Summary ---
Demographics + + + | Address | [address] [facility] | | | [place] [address] | + + + | Home Phone | | + + + | Preferred Language | Unknown | + + + | Marital Status | | + + + | Holiness Affiliation | NON | + + + [...] [place], [place] | | | | | [address] | | + + + + + Care Team Providers + +------+ + | Care Fund Accountant Name | Role | Phone | + +------+ + PCP | Unavailable | + +------+ + Encounter Details +--------+ + + + + | Date | Type | Department | Care Team | Description | +--------+ + + + + | 03/20/ | Respiratory | | Other, Faculty | | | 2005 | Therapy | | [phone] | | +--------+ + + + + [...] | | | | | Y | SILO PAINTER | | | | + + + [...] [facility] | [address] | [place], [place] | | | DIAGNOSTICS - | [address] | [address] | | | PULMONARY FUNCTION | | | | + + + + + documented in this encounter Visit Diagnoses Not on filedocumented in this encounter"
--- OUTSIDE RECORDS SUMMARY | ~2019-01-26 | XMS | Encounter Summary ---
Demographics + + + | Address | [address] | | | [place] [address] | + + + | Home Phone [...] [place], [place] | | | | | [address] | | + + + + + Care Team Providers + +------+ + | Care Bilingual Trainer Name | Role | Phone | [...] as of this encounter Progress Notes Interface, Maintainer Sewer And Waterworks In - 02/19/2006 2:08 AM PDT [id number] ASHLEY Peck [id number] Clinic Date: 02/15/2006 Clinic: Operative Report Preoperative [...] it. Thai De La Garza M.D., F.A.C.S. energy crop farmer @ director of education and training Service [facility] / [phone] / [id number] / [id number] / [phone] documented i n this encounter Plan of Treatment Not on filedocumented as of this encounter Visit Diagnoses Not on filedocumented in this encounter"
--- OUTSIDE RECORDS SUMMARY | ~2019-01-26 | XMS | Encounter Summary ---
Demographics + + + | Address | [address] [facility] [address] [facility] | | | [place] [address] | + + + | Home Phone | | + + + | Preferred Language | Unknown | + + + | Marital Status | | + + + | Anglican Affiliation | NON | + + + [...] [place], [place] | | | | | [address] | | + + + + + Care Team Providers + +------+ + | Care Tools Programmer Name | Role | Phone | + +------+ + PCP | Unavailable | + +------+ + Encounter Details +--------+ + + + + | Date | Type | Department | Care Team | Description | +--------+ + + + + | 03/07/ | Respiratory | | Other, Faculty | | | 2005 | Therapy | | [phone] | | +--------+ + + + + [...] + | MEDICAL GAS/HUMIDITY | Routin | 03/07/2006 | | Results for this | | | e | 12:51 AM | | procedure are in the | | | | PDT | | results section. | + +--------+ + + + documented in this encounter Results MEDICAL GAS/HUMIDITY (03/07/2006 12:51 AM PDT) + + + + + + | Component | Value | Ref Range | Performed | Pathologist | | | | | At | Signature | + + + + + + | [facility] | CONTINUOUS PULSE | | | | | GAS/HUMIDIT | OXIMETRY IN USE. | | | | | Y | HEATED HUMIDITY AT 28 % | | | | | | OXYGEN. Gela Sethi, | | | | | | [facility] | | | | + + + [...] [facility] | [address] | [place] | | | DIAGNOSTICS - | [address] | [address] | | | PULMONARY FUNCTION | | | | + + + + + documented in this encounter Visit Diagnoses Not on filedocumented in this encounter"
--- OUTSIDE RECORDS SUMMARY | ~2019-01-26 | XMS | Encounter Summary ---
Demographics + + + | Address | [address] | | | [place] [address] | + + + | Home Phone [...] [place], [place] | | | | | [address] | | + + + + + Care Team Providers + +------+ + | Care Outpatient Scheduler Name | Role | Phone | + +------+ + PCP | Unavailable | + +------+ + Encounter Details +--------+ + + + + | Date | Type | Department | Care Team | Description | +--------+ + + + + | 03/12/ | Respiratory | | Other, Faculty | | | 2005 | Therapy | | [phone] | | +--------+ + + + + [...] | ADULT AND SHRINERS | Routin | 03/12/2006 | | Results for this | | TREATMENTS | e | 5:11 AM | | procedure are in the | | | | PDT | | results section. | + +--------+ + + + documented in this encounter Results ADULT AND SHRINERS TREATMENTS (03/12/2006 5:11 AM PDT) + + + + + + | Component | Value | Ref Range | Performed | Pathologist | | | | | At | Signature | + + + + + + | [facility] | MDI NOT GIVEN. NOT | | | | | TREATMENTS | INDICATED AT THIS | | | | | | TIME. HEATED | | | | | | HUMIDITY AT 24 %OXYGEN. | | | | | | Kendell Salvador RCP | | | | + + [...] [facility] | [address] | [place] | | | DIAGNOSTICS - | [address] | [address] | | | PULMONARY FUNCTION | | | | + + + + + documented in this encounter Visit Diagnoses Not on filedocumented in this encounter"
--- OUTSIDE RECORDS SUMMARY | ~2019-01-26 | XMS | Encounter Summary ---
Demographics + + + | Address | [address] [facility] | | | [place] [address] | + + + | Home Phone | | + + + | Preferred Language | Unknown | + + + | Marital Status | | + + + | Episcopalian Affiliation | NON | + + + [...] + + + + + | Yanni Antonie | ECON | [address] | | | | | [place], [place] | | | | | [address] | | + + + + + Care Team Providers + +------+ + | Care Environmental Compliance Inspector Name | Role | Phone | + +------+ + PCP | Unavailable | + +------+ + Encounter Details +--------+ + + + + | Date | Type | Department | Care Team | Description | +--------+ + + + + | 03/12/ | Respiratory | | Other, Faculty | | | 2005 | Therapy | | [phone] | | +--------+ + + + + [...] [facility] | [address] | [place] | | | DIAGNOSTICS - | [address] | [address] | | | PULMONARY FUNCTION | | | | + + + + + documented in this encounter Visit Diagnoses Not on filedocumented in this encounter"
--- OUTSIDE RECORDS SUMMARY | ~2019-01-26 | XMS | Encounter Summary ---
Demographics + + + | Address | [address] [facility] | | | [place] [address] | + + + | Home Phone | | + + + | Preferred Language | Unknown | + + + | Marital Status | | + + + | Shinto Affiliation | NON | + + + [...] [place], [place] | | | | | [address] | | + + + + + Care Team Providers + +------+ + | Care Pl Sql Developer Name | Role | Phone | + +------+ + PCP | Unavailable | + +------+ + Encounter Details +--------+ + + + + | Date | Type | Department | Care Team | Description | +--------+ + + + + | 03/03/ | Respiratory | | Other, Faculty | | | 2005 | Therapy | | [phone] | | +--------+ + + + + [...] | DIAGNOSTICS - | [address] | [address] | | | PULMONARY FUNCTION | | | | + + + + + documented in this encounter Visit Diagnoses Not on filedocumented in this encounter"
--- OUTSIDE RECORDS SUMMARY | ~2019-01-26 | XMS | Encounter Summary ---
Demographics + + + | Address | [address] [facility] | | | [place] [address] | + + + | Home Phone [...] [place], [place] | | | | | [address] | | + + + + + Care Team Providers + +------+ + | Care Qa Reviewer Name | Role | Phone | + +------+ + PCP | Unavailable | + +------+ + Encounter Details +--------+ + + + + | Date | Type | Department | Care Team | Description | +--------+ + + + + | 02/22/ | Respiratory | | Other, Faculty | | | 2005 | Therapy | | [phone] | | +--------+ + + + + [...] + + | DIAGNOSTICS | Routin | 02/22/2006 | | Results for this | | | e | 4:24 AM | | procedure are in the | | | | PDT | | results section. | + +--------+ + + + documented in this encounter Results DIAGNOSTICS (02/22/2006 4:24 AM PDT) + + + + + + | Component | Value | Ref Range | Performed | Pathologist | | | | | At | Signature | + + + + + + | [facility] | CONTINUOUS PULSE | | | | | DIAGNOSTICS | OXIMETRY IN USE. Gela | | | | | | [...] [facility] | [address] | [place], [place] | | | DIAGNOSTICS - | [address] | [address] | | | PULMONARY FUNCTION | | | | + + + + + documented in this encounter Visit Diagnoses Not on filedocumented in this encounter"
--- OUTSIDE RECORDS SUMMARY | ~2019-01-26 | XMS | Encounter Summary ---
Demographics + + + | Address | [address] | | | [place] [address] | + + + | Home Phone | | + + + | Preferred Language | Unknown | + + + | Marital Status | | + + + | Sabianism Affiliation | NON | + + + | Race | White | + + + | Ethnic Group | Not or | + + + Author + + + | Author | [facility] | + + + | Organization | [facility] | + + + | Address | Unknown | + + + | Phone | Unavailable | + + + Support + + + + + | Name | Relationship | Address | Phone | + + + + + | Yanni Ramirez | ECON | [address] | | | | | [place], [place] | | | | | [address] | | + + + + + Care Team Providers + +------+ + | Care Brick Paver Name | Role | Phone | + +------+ + PCP | Unavailable | + +------+ + Encounter Details +--------+ + + + + | Date | Type | Department | Care Team | Description | +--------+ + + + + | 02/18/ | Documentati | Anesthesiology | Unknown . | | | 2005 | on | [address] | | | | | | [facility] | | | | | | [place], [place] | | | | | | [address] | | | +--------+ + + + [...] | + +--------+ + + + | ANESTHESIA/SEDATION | | 02/18/2006 | | Results for this | | | | 10:10 AM | | procedure are in the | | | | PDT | | results section. | + +--------+ + + + documented in this encounter Results ANESTHESIA/SEDATION (02/18/2006 10:10 AM PDT) + + + | Narrative | Performed At | + + + | Ordered by an unspecified provider. | | + + + + + | Transcriptions | + + | 02/18/2006 10:10 AM PDT Anesthesia PostOp Report | | | | Patient: MIGUEL A RAMIREZ [facility] Rec: [id number] Sex M Bdate: 1965 | | Date/Time Data | | Entered Into [facility] | | Anesth PostOp | | Surgery Date [id number] 02/18/06 10:10 | | Anesthesiologist CHENTE GOVEA 02/18/06 10:10 | | Resident Anesthesiolog RENITA ANDREWS 02/18/06 10:10 | | | + + documented in this encounter Visit Diagnoses Not on filedocumented in this encounter"
--- OUTSIDE RECORDS SUMMARY | ~2019-01-26 | XMS | Encounter Summary ---
Demographics + + + | Address | [address] [facility] | | | [place] [address] | + + + | Home Phone | | + + + | Preferred Language | Unknown | + + + | Marital Status | | + + + | Moravian Affiliation | NON | + + + [...] [place], [place] | | | | | [address] | | + + + + + Care Team Providers + +------+ + | Care Card Hand Name | Role | Phone | + +------+ + PCP | Unavailable | + +------+ + Encounter Details +--------+ + + + + | Date | Type | Department | Care Team | Description | +--------+ + + + + | 03/06/ | Respiratory | | Other, Faculty | | | 2005 | Therapy | | [phone] | | +--------+ + + + + [...] + + | DIAGNOSTICS | Routin | 03/06/2006 | | Results for this | | | e | 4:17 AM | | procedure are in the | | | | PDT | | results section. | + +--------+ + + + documented in this encounter Results DIAGNOSTICS (03/06/2006 4:17 AM PDT) + + + + + + | Component | Value | Ref Range | Performed | Pathologist | | | | | At | Signature | + + + + + + | [facility] | HEATED HUMIDITY AT 24 % | | | | | DIAGNOSTICS | OXYGEN. PABLO | | | | | | NUOUS PULSE OXIMETRY IN | | | | | | USE. Viridiana Yu, WIPER BLENDER | | | | + + + [...] [facility] | [address] | [place], [place] | | | DIAGNOSTICS - | [address] | [address] | | | PULMONARY FUNCTION | | | | + + + + + documented in this encounter Visit Diagnoses Not on filedocumented in this encounter"
--- OUTSIDE RECORDS SUMMARY | ~2019-01-26 | XMS | Encounter Summary ---
Demographics + + + | Address | [address] [facility] | | | [place] [address] | + + + | Home Phone | | + + + | Preferred Language | Unknown | + + + | Marital Status | | + + + | Buddhist Affiliation | NON | + + + [...] [place], [place] | | | | | [address] | | + + + + + Care Team Providers + +------+ + | Care Decorator Street And Building Name | Role | Phone | + +------+ + PCP | Unavailable | + +------+ + Encounter Details +--------+ + + + + | Date | Type | Department | Care Team | Description | +--------+ + + + + | 03/03/ | Respiratory | | Other, Faculty | | | 2005 | Therapy | | [phone] | | +--------+ + + + + [...] + | MEDICAL GAS/HUMIDITY | Routin | 03/03/2006 | | Results for this | | | e | 8:00 AM | | procedure are in the | | | | PDT | | results section. | + +--------+ + + + documented in this encounter Results MEDICAL GAS/HUMIDITY (03/03/2006 8:00 AM PDT) + + + + + + | Component | Value | Ref Range | Performed | Pathologist | | | | | At | Signature | + + + + + + | [facility] | HEATED HUMIDITY AT 31 % | | | | | GAS/HUMIDIT | OXYGEN. Kenny Sanford, | | | | | Y | MOTOR VEHICLE SALESPERSON | | | | + + [...] | DIAGNOSTICS - | [address] | [address] | | | PULMONARY FUNCTION | | | | + + + + + documented in this encounter Visit Diagnoses Not on filedocumented in this encounter"
--- OUTSIDE RECORDS SUMMARY | ~2019-01-26 | XMS | Encounter Summary ---
Demographics + + + | Address | [address] [facility] | | | [place] [address] | + + + | Home Phone | | + + + | Preferred Language | Unknown | + + + | Marital Status | | + + + | Tenriism Affiliation | NON | + + + [...] [place], [place] | | | | | [address] | | + + + + + Care Team Providers + +------+ + | Care Quality Liaison Name | Role | Phone | + +------+ + PCP | Unavailable | + +------+ + Encounter Details +--------+ + + + + | Date | Type | Department | Care Team | Description | +--------+ + + + + | 02/27/ | Respiratory | | Other, Faculty | | | 2005 | Therapy | | [phone] | | +--------+ + + + + [...] [facility] | [address] | [place], [place] | | | DIAGNOSTICS - | [address] | [address] | | | PULMONARY FUNCTION | | | | + + + + + documented in this encounter Visit Diagnoses Not on filedocumented in this encounter"
--- OUTSIDE RECORDS SUMMARY | ~2019-01-26 | XMS | Encounter Summary ---
Demographics + + + | Address | [address] [facility] | | | [place] [address] | + + + | Home Phone | | + + + | Preferred Language | Unknown | + + + | Marital Status | | + + + | Hinduism Affiliation | NON | + + + [...] [place], [place] | | | | | [address] | | + + + + + Care Team Providers + +------+ + | Care Clinical Lab Assistant Name | Role | Phone | + +------+ + PCP | Unavailable | + +------+ + Encounter Details +--------+ + + + + | Date | Type | Department | Care Team | Description | +--------+ + + + + | 02/21/ | Respiratory | | Other, Faculty | | | 2005 | Therapy | | [phone] | | +--------+ + + + + [...] + | MEDICAL GAS/HUMIDITY | Routin | 02/21/2006 | | Results for this | | | e | 6:08 AM | | procedure are in the | | | | PDT | | results section. | + +--------+ + + + documented in this encounter Results MEDICAL GAS/HUMIDITY (02/21/2006 6:08 AM PDT) + + + + + + | Component | Value | Ref Range | Performed | Pathologist | | | | | At | Signature | + + + + + + | [facility] | HEATED HUMIDITY AT 24 % | | | | | GAS/HUMIDIT | OXYGEN. Christy | | | | | Y | [facility] PHYSICIAN | | | | + + + [...] | + + + + + | [facility] | [address] | [place], [place] | | | DIAGNOSTICS - | [address] | [address] | | | PULMONARY FUNCTION | | | | + + + + + documented in this encounter Visit Diagnoses Not on filedocumented in this encounter"
--- OUTSIDE RECORDS SUMMARY | ~2019-01-26 | XMS | Encounter Summary ---
Demographics + + + | Address | [address] [facility] | | | [place] [address] | + + + | Home Phone | | + + + | Preferred Language | Unknown | + + + | Marital Status | | + + + | Sabianist Affiliation | NON | + + + [...] [place], [place] | | | | | [address] | | + + + + + Care Team Providers + +------+ + | Care Commercial Interior Designer Name | Role | Phone | [...] | Transcriptions | + + | Interface, Strip Machine Operator In - 03/08/2006 2:08 AM PDT | | [id number] | | [id number] ASHLEY Peck [id number] | | | | Date: 02/15/2006 | | | | Attending Surgeon: Thai De La Garza M.D., DeepthiCRamiroS. | | | | Cadmium Burner(s): Ángel Horne M.D. | | | | [...] De La Garza M.D., F.A.C.S. | | alternative medicine practitioner @ database analyst Service | | | | AWP / HS | | [phone] / [phone] / [phone] / | | | | | | | | | | | | Electronically signed by Thai De La Garza 03-07-2006 06:59:29 AM | + + documented in this encounter Visit Diagnoses Not on filedocumented in this encounter"
--- OUTSIDE RECORDS SUMMARY | ~2019-01-26 | XMS | Encounter Summary ---
Demographics + + + | Address | [address] [facility] | | | [place] [address] | + + + | Home Phone [...] [place], [place] | | | | | [address] | | + + + + + Care Team Providers + +------+ + | Care Pizza Cook Name | Role | Phone | + +------+ + PCP | Unavailable | + +------+ + Encounter Details +--------+ + + + + | Date | Type | Department | Care Team | Description | +--------+ + + + + | 03/17/ | Respiratory | | Other, Faculty | | | 2005 | Therapy | | [phone] | | +--------+ + + + + [...] [facility] | [address] | [place], [place] | | | DIAGNOSTICS - | [address] | [address] | | | PULMONARY FUNCTION | | | | + + + + + documented in this encounter Visit Diagnoses Not on filedocumented in this encounter"
--- OUTSIDE RECORDS SUMMARY | ~2019-01-26 | XMS | Encounter Summary ---
Demographics + + + | Address | [address] [facility] | | | [place] [address] | + + + | Home Phone [...] [place], [place] | | | | | [address] | | + + + + + Care Team Providers + +------+ + | Care Bake Room Worker Name | Role | Phone | + +------+ + PCP | Unavailable | + +------+ + Encounter Details +--------+ + + + + | Date | Type | Department | Care Team | Description | +--------+ + + + + | 03/03/ | Respiratory | | Other, Faculty | | | 2005 | Therapy | | [phone] | | +--------+ + + + + [...] this | | TREATMENTS | e | 8:00 PM | | procedure are in the | | | | PDT | | results section. | + +--------+ + + + documented in this encounter Results ADULT AND SHRINERS TREATMENTS (03/03/2006 8:00 PM PDT) + + + + + [...] | | | | | AFTER TREATMENT BREATH | | | | | | SOUNDS IMPROVED Bill | | | | | | DULCE Vora | | | | + + + [...] + + + | [facility] | [address] | [place], [place] | | | DIAGNOSTICS - | [address] | [address] | | | PULMONARY FUNCTION | | | | + + + + + documented in this encounter Visit Diagnoses Not on filedocumented in this encounter"
--- OUTSIDE RECORDS SUMMARY | ~2019-01-26 | XMS | Encounter Summary ---
Demographics + + + | Address | [address] [facility] | | | [place] [address] | + + + | Home Phone | | + + + | Preferred Language | Unknown | + + + | Marital Status | | + + + | Hoahaoism Affiliation | NON | + + + [...] [place], [place] | | | | | [address] | | + + + + + Care Team Providers + +------+ + | Care Rotor Casting Machine Setup Operator Name | Role | Phone | + +------+ + PCP | Unavailable | + +------+ + Encounter Details +--------+ + + + + | Date | Type | Department | Care Team | Description | +--------+ + + + + | 03/09/ | Respiratory | | Other, Faculty | | | 2005 | Therapy | | [phone] | | +--------+ + + + + [...] + | MEDICAL GAS/HUMIDITY | Routin | 03/09/2006 | | Results for this | | | e | 4:00 AM | | procedure are in the | | | | PDT | | results section. | + +--------+ + + + documented in this encounter Results MEDICAL GAS/HUMIDITY (03/09/2006 4:00 AM PDT) + + + + + [...] | | | | | | OXYGEN. Madeline Whiting, ROLL CONTOUR GRINDER | | | | + + + [...] [facility] | [address] | [place], [place] | | | DIAGNOSTICS - | [address] | [address] | | | PULMONARY FUNCTION | | | | + + + + + documented in this encounter Visit Diagnoses Not on filedocumented in this encounter"
--- OUTSIDE RECORDS SUMMARY | ~2019-01-26 | XMS | Encounter Summary ---
Demographics + + + | Address | [address] [facility] | | | [place] [address] | + + + | Home Phone | | + + + | Preferred Language | Unknown | + + + | Marital Status | | + + + | Anabaptist Affiliation | NON | + + + [...] [place], [place] | | | | | [address] | | + + + + + Care Team Providers + +------+ + | Care Chamfering Machine Operator Name | Role | Phone | + +------+ + PCP | Unavailable | + +------+ + Encounter Details +--------+ + + + + | Date | Type | Department | Care Team | Description | +--------+ + + + + | 03/06/ | Respiratory | | Other, Faculty | | | 2005 | Therapy | | [phone] | | +--------+ + + + + [...] | ADULT AND SHRINERS | Routin | 03/06/2006 | | Results for this | | TREATMENTS | e | 11:45 AM | | procedure are in the | | | | PDT | | results section. | + +--------+ + + + documented in this encounter Results ADULT AND SHRINERS TREATMENTS (03/06/2006 11:45 AM PDT) + + + + + [...] | | | | | AFTER TREATMENT Corrine | | | | | | Beni, REGISTERED PHARMACIST | | | | + + + [...] + + + | [facility] | [address] | [facility] [place] | | | DIAGNOSTICS - | [address] | [address] | | | PULMONARY FUNCTION | | | | + + + + + documented in this encounter Visit Diagnoses Not on filedocumented in this encounter"
--- OUTSIDE RECORDS SUMMARY | ~2019-01-26 | XMS | Encounter Summary ---
Demographics + + + | Address | [address] | | | [place] [address] | + + + | Home Phone | | + + + | Preferred Language | Unknown | + + + | Marital Status | | + + + | Rastafari Affiliation | NON | + + + [...] [place], [place] | | | | | [address] | | + + + + + Care Team Providers + +------+ + | Care Body Hanger Name | Role | Phone | + +------+ + PCP | Unavailable | + +------+ + Encounter Details +--------+ + + + + | Date | Type | Department | Care Team | Description | +--------+ + + + + | 03/03/ | Respiratory | | Other, Faculty | | | 2005 | Therapy | | [phone] | | +--------+ + + + + [...] | | | | | Y | HOSPICE RN | | | | + + + [...] | DIAGNOSTICS - | [address] | [address] | | | PULMONARY FUNCTION | | | | + + + + + documented in this encounter Visit Diagnoses Not on filedocumented in this encounter"
--- OUTSIDE RECORDS SUMMARY | ~2019-01-26 | XMS | Encounter Summary ---
Demographics + + + | Address | [address] [facility] | | | [place] [address] | + + + | Home Phone [...] [place], [place] | | | | | [address] | | + + + + + Care Team Providers + +------+ + | Care Vault Attendant Name | Role | Phone | + +------+ + PCP | Unavailable | + +------+ + Encounter Details +--------+ + + + + | Date | Type | Department | Care Team | Description | +--------+ + + + + | 03/06/ | Respiratory | | Other, Faculty | | | 2005 | Therapy | | [phone] | | +--------+ + + + + [...] | | TREATMENTS | e | 7:45 AM | | procedure are in the | | | | PDT | | results section. | + +--------+ + + + documented in this encounter Results ADULT AND SHRINERS TREATMENTS (03/06/2006 7:45 AM PDT) + + + + [...] | | | | | | Beni, ANCHORMAN | | | | + + + [...] + + + | [facility] | [address] | [facility] [place] | | | DIAGNOSTICS - | [address] | [address] | | | PULMONARY FUNCTION | | | | + + + + + documented in this encounter Visit Diagnoses Not on filedocumented in this encounter"
--- OUTSIDE RECORDS SUMMARY | ~2019-01-26 | XMS | Encounter Summary ---
Demographics + + + | Address | [address] [facility] | | | [place] [address] | + + + | Home Phone | | + + + | Preferred Language | Unknown | + + + | Marital Status | | + + + | Restorationism Affiliation | NON | + + + [...] [place], [place] | | | | | [address] | | + + + + + Care Team Providers + +------+ + | Care Unit Reactor Operator Name | Role | Phone | + +------+ + PCP | Unavailable | + +------+ + Encounter Details +--------+ + + + + | Date | Type | Department | Care Team | Description | +--------+ + + + + | 03/12/ | Respiratory | | Other, Faculty | | | 2005 | Therapy | | [phone] | | +--------+ + + + + [...] + | MEDICAL GAS/HUMIDITY | Routin | 03/12/2006 | | Results for this | | | e | 10:24 AM | | procedure are in the | | | | PDT | | results section. | + +--------+ + + + documented in this encounter Results MEDICAL GAS/HUMIDITY (03/12/2006 10:24 AM PDT) + + + + + + | Component | Value | Ref Range | Performed | Pathologist | | | | | At | Signature | + + + + + + | [facility] | Pt. plugged. | | | | | GAS/HUMIDIT | NASAL CANNULA AT 2 | | | | | Y | | | | | | | Ángel Combs, HOSPICE NURSE | | | | + + + [...] [facility] | [address] | [place], [place] | | | DIAGNOSTICS - | [address] | [address] | | | PULMONARY FUNCTION | | | | + + + + + documented in this encounter Visit Diagnoses Not on filedocumented in this encounter"
--- OUTSIDE RECORDS SUMMARY | ~2019-01-26 | XMS | Encounter Summary ---
Demographics + + + | Address | [address] | | | [place] [address] | + + + | Home Phone [...] [place], [place] | | | | | [address] | | + + + + + Care Team Providers + +------+ + | Care Postal Superintendent Name | Role | Phone | + +------+ + PCP | Unavailable | + +------+ + Encounter Details +--------+ + + + + | Date | Type | Department | Care Team | Description | +--------+ + + + + | 03/10/ | Respiratory | | Other, Faculty | | | 2005 | Therapy | | [phone] | | +--------+ + + + + [...] for this | | | e | 11:46 AM | | procedure are in the | | | | PDT | | results section. | + +--------+ + + + documented in this encounter Results MEDICAL GAS/HUMIDITY (03/10/2006 11:46 AM PDT) + + + + + + | Component | Value | Ref Range | Performed | Pathologist | | | | | At | Signature | + + + + + + | [facility] | HEATED HUMIDITY AT 24 % | | | | | GAS/HUMIDIT | OXYGEN. Clarisa Nguyen, | | | | | Y | MENS LOCKER ROOM ATTENDANT | | | | + + + [...] | DIAGNOSTICS - | [address] | [address] | | | PULMONARY FUNCTION | | | | + + + + + documented in this encounter Visit Diagnoses Not on filedocumented in this encounter"
--- OUTSIDE RECORDS SUMMARY | ~2019-01-26 | XMS | Encounter Summary ---
Demographics + + + | Address | [address] | | | [place] [address] | + + + | Home Phone | | + + + | Preferred Language | Unknown | + + + | Marital Status | | + + + | Anabaptism Affiliation | NON | + + + [...] [place], [place] | | | | | [address] | | + + + + + Care Team Providers + +------+ + | Care Conduit Installer Name | Role | Phone | + +------+ + PCP | Unavailable | + +------+ + Encounter Details +--------+ + + + + | Date | Type | Department | Care Team | Description | +--------+ + + + + | 03/03/ | Respiratory | | Other, Faculty | | | 2005 | Therapy | | [phone] | | +--------+ + + + + [...] + + + | [facility] | [address] | [place], [place] | | | DIAGNOSTICS - | [facility] | [address] | | | PULMONARY FUNCTION | | | | + + + + + documented in this encounter Visit Diagnoses Not on filedocumented in this encounter"
--- OUTSIDE RECORDS SUMMARY | ~2019-01-26 | XMS | Encounter Summary ---
Demographics + + + | Address | [address] | | | [place] [address] | + + + | Home Phone [...] [place], [place] | | | | | [address] | | + + + + + Care Team Providers + +------+ + | Care Work Environment Safety Inspector Name | Role | Phone | + +------+ + PCP | Unavailable | + +------+ + Encounter Details +--------+ + + + + | Date | Type | Department | Care Team | Description | +--------+ + + + + | 03/01/ | Respiratory | | Other, Faculty | | | 2005 | Therapy | | [phone] | | +--------+ + + + + [...] this | | TREATMENTS | e | 3:30 PM | | procedure are in the | | | | PDT | | results section. | + +--------+ + + + documented in this encounter Results ADULT AND SHRINERS TREATMENTS (03/01/2006 3:30 PM PDT) + + + + + + | Component | Value | Ref Range | Performed | Pathologist | | | | | At | Signature | + + + + + + | [facility] | PATIENTS PAIN ASSESSED | | | | | TREATMENTS | AND WAS TWO ON A SCALE | | | | | | OF ZERO TO 10. NOT | | | | | | GIVEN.NOT INDICATED AT | | | | | | THIS TIME. Hayley Hinton, | | | | | | ARABIC TRANSLATOR | | | | + + + [...] [facility] | [address] | [place], [place] | | | DIAGNOSTICS - | [address] | [address] | | | PULMONARY FUNCTION | | | | + + + + + documented in this encounter Visit Diagnoses Not on filedocumented in this encounter"
--- OUTSIDE RECORDS SUMMARY | ~2019-01-26 | XMS | Encounter Summary ---
Demographics + + + | Address | [address] | | | [place] [address] | + + + | Home Phone [...] [place], [place] | | | | | [address] | | + + + + + Care Team Providers + +------+ + | Care Electronic Integrated Systems Mechanic Name | Role | Phone | + +------+ + PCP | Unavailable | + +------+ + Encounter Details +--------+ + + + + | Date | Type | Department | Care Team | Description | +--------+ + + + + | 03/10/ | Respiratory | | Other, Faculty | | | 2005 | Therapy | | [phone] | | +--------+ + + + + [...] + + | DIAGNOSTICS | Routin | 03/10/2006 | | Results for this | | | e | 4:16 AM | | procedure are in the | | | | PDT | | results section. | + +--------+ + + + documented in this encounter Results DIAGNOSTICS (03/10/2006 4:16 AM PDT) + + + + + [...] | | | | | IN USE. Jeannette Oconnell, | | | | | | RESIDENTIAL SALES CONSULTANT | | | | + + + [...] [facility] | [address] | [place], [place] | | | DIAGNOSTICS - | [address] [facility] | [address] | | | PULMONARY FUNCTION | | | | + + + + + documented in this encounter Visit Diagnoses Not on filedocumented in this encounter"
--- OUTSIDE RECORDS SUMMARY | ~2019-01-26 | XMS | Encounter Summary ---
Demographics + + + | Address | [address] | | | [place] [address] | + + + | Home Phone | | + + + | Preferred Language | Unknown | + + + | Marital Status | | + + + | Temple Affiliation | NON | + + + [...] [place], [place] | | | | | [address] | | + + + + + Care Team Providers + +------+ + | Care Newscast Director Name | Role | Phone | + +------+ + PCP | Unavailable | + +------+ + Encounter Details +--------+ + + + + | Date | Type | Department | Care Team | Description | +--------+ + + + + | 03/07/ | Respiratory | | Other, Faculty | | | 2005 | Therapy | | [phone] | | +--------+ + + + + [...] | DIAGNOSTICS - | [facility] | [address] | | | PULMONARY FUNCTION | | | | + + + + + documented in this encounter Visit Diagnoses Not on filedocumented in this encounter"
--- OUTSIDE RECORDS SUMMARY | ~2019-01-26 | XMS | Encounter Summary ---
Demographics + + + | Address | [address] | | | [place] [address] | + + + | Home Phone [...] [place], [place] | | | | | [address] | | + + + + + Care Team Providers + +------+ + | Care Sustainable Design Consultant Name | Role | Phone | + +------+ + PCP | Unavailable | + +------+ + Encounter Details +--------+ + + + + | Date | Type | Department | Care Team | Description | +--------+ + + + + | 03/06/ | Respiratory | | Other, Faculty | | | 2005 | Therapy | | [phone] | | +--------+ + + + + [...] | | | | | | Beni, PHOTOGRAPH INSPECTOR | | | | + + [...] + + + | [facility] | [address] | [place] | | | DIAGNOSTICS - | [facility] | [address] | | | PULMONARY FUNCTION | | | | + + + + + documented in this encounter Visit Diagnoses Not on filedocumented in this encounter"
--- OUTSIDE RECORDS SUMMARY | ~2019-01-26 | XMS | Encounter Summary ---
Demographics + + + | Address | [address] | | | [place] [address] | + + + | Home Phone | | + + + | Preferred Language | Unknown | + + + | Marital Status | | + + + | Episcopal Affiliation | NON | + + + [...] [place], [place] | | | | | [address] | | + + + + + Care Team Providers + +------+ + | Care Family Law Attorney Name | Role | Phone | + +------+ + PCP | Unavailable | + +------+ + Encounter Details +--------+ + + + + | Date | Type | Department | Care Team | Description | +--------+ + + + + | 02/18/ | Respiratory | | Other, Faculty | | | 2005 | Therapy | | [phone] | | +--------+ + + + + [...] + | MEDICAL GAS/HUMIDITY | Routin | 02/18/2006 | | Results for this | | | e | 5:38 PM | | procedure are in the | | | | PDT | | results section. | + +--------+ + + + documented in this encounter Results MEDICAL GAS/HUMIDITY (02/18/2006 5:38 PM PDT) + + + + + + | Component | Value | Ref Range | Performed | Pathologist | | | | | At | Signature | + + + + + + | [facility] | HEATED HUMIDITY AT 35 % | | | | | GAS/HUMIDIT | OXYGEN. Rose Howe, | | | | | Y | INSPECTOR FINISHING | | | | + + + [...] | DIAGNOSTICS - | [facility] | [address] | | | PULMONARY FUNCTION | | | | + + + + + documented in this encounter Visit Diagnoses Not on filedocumented in this encounter"
--- OUTSIDE RECORDS SUMMARY | ~2019-01-26 | XMS | Encounter Summary ---
Demographics + + + | Address | [address] | | | [place] [address] | + + + | Home Phone [...] [place], [place] | | | | | [address] | | + + + + + Care Team Providers + +------+ + | Care Heel Scorer Name | Role | Phone | + [...] | Transcriptions | + + | Interface, Machine Bander And Cellophaner Helper In - 05/07/2006 2:08 AM PDT | | [id number] | | [id number] [place] [id number] | | | | Date: 02/10/2006 | | | | Attending Surgeon: Marcos Sin M.D. | | | | Director Of Planning(s): Gloria Dockery M.D. | | Harmeet Sims [...] | | | / HS | | [id number] / [id number] / [phone] / [phone] | | | | | | | | | | | | | | Electronically signed by Jong Sin 05-06-2006 04:56:24 PM | + + documented in this encounter Visit Diagnoses Not on filedocumented in this encounter"
--- OUTSIDE RECORDS SUMMARY | ~2019-01-26 | XMS | Encounter Summary ---
Demographics + + + | Address | [address] | | | [place] [address] | + + + | Home Phone [...] [place], [place] | | | | | [address] | | + + + + + Care Team Providers + +------+ + | Care Regulatory Law Specialist Name | Role | Phone | + +------+ + PCP | Unavailable | + +------+ + Encounter Details +--------+ + + + + | Date | Type | Department | Care Team | Description | +--------+ + + + + | 02/28/ | Respiratory | | Other, Faculty | | | 2005 | Therapy | | [phone] | | +--------+ + + + + [...] | ADULT AND SHRINERS | Routin | 02/28/2006 | | Results for this | | TREATMENTS | e | 2:16 PM | | procedure are in the | | | | PDT | | results section. | + +--------+ + + + documented in this encounter Results ADULT AND SHRINERS TREATMENTS (02/28/2006 2:16 PM PDT) + + + + + [...] CLEAR | | | | | | WHITE YELLOW | | | | | | SPUTUM.BREATH SOUNDS | | | | | | IMPROVED HEATED | | | | | | HUMIDITY AT 31 % OXYGEN. | | | | | | Espinoza Sun RCP | | | | + + [...] + + + | [facility] | [address] | [place], [place] | | | DIAGNOSTICS - | [address] | [address] | | | PULMONARY FUNCTION | | | | + + + + + documented in this encounter Visit Diagnoses Not on filedocumented in this encounter"
--- OUTSIDE RECORDS SUMMARY | ~2019-01-26 | XMS | Encounter Summary ---
Demographics + + + | Address | [address] | | | [place] [address] | + + + | Home Phone [...] [place], [place] | | | | | [address] | | + + + + + Care Team Providers + +------+ + | Care Telecommunications Line Installer Name | Role | Phone | + +------+ + PCP | Unavailable | + +------+ + Encounter Details +--------+ + + + + | Date | Type | Department | Care Team | Description | +--------+ + + + + | 03/05/ | Respiratory | | Other, Faculty | | | 2005 | Therapy | | [phone] | | +--------+ + + + + [...] | | | | | | Alms, IT TRAINER | | | | + + + [...] + + + | [facility] | [address] | [place] | | | DIAGNOSTICS - | [address] | [address] | | | PULMONARY FUNCTION | | | | + + + + + documented in this encounter Visit Diagnoses Not on filedocumented in this encounter"
--- OUTSIDE RECORDS SUMMARY | ~2019-01-26 | XMS | Encounter Summary ---
Demographics + + + | Address | [address] | | | [place] [address] | + + + | Home Phone | | + + + | Preferred Language | Unknown | + + + | Marital Status | | + + + | Baptism Affiliation | NON | + + + [...] [place], [place] | | | | | [address] | | + + + + + Care Team Providers + +------+ + | Care Fur Floor Worker Name | Role | Phone | + +------+ + PCP | Unavailable | + +------+ + Encounter Details +--------+ + + + + | Date | Type | Department | Care Team | Description | +--------+ + + + + | 03/05/ | Respiratory | | Other, Faculty | | | 2005 | Therapy | | [phone] | | +--------+ + + + + [...] | | GAS/HUMIDIT | OXYGEN. Viridiana Yu LENS GRINDER ROUGH | | | | | Y |Viridiana Yu LENS GRINDER ROUGH | | | | + + + [...] [facility] | [address] | [place], [place] | | | DIAGNOSTICS - | [address] | [address] | | | PULMONARY FUNCTION | | | | + + + + + documented in this encounter Visit Diagnoses Not on filedocumented in this encounter"
--- OUTSIDE RECORDS SUMMARY | ~2019-01-26 | XMS | Encounter Summary ---
Demographics + + + | Address | [address] | | | [place] [address] | + + + | Home Phone | | + + + | Preferred Language | Unknown | + + + | Marital Status | | + + + | Church Affiliation | NON | + + + [...] [place], [place] | | | | | [address] | | + + + + + Care Team Providers + +------+ + | Care Other Sales Support Worker Name | Role | Phone | + +------+ + PCP | Unavailable | + +------+ + Encounter Details +--------+ + + + + | Date | Type | Department | Care Team | Description | +--------+ + + + + | 03/13/ | Respiratory | | Other, Faculty | | | 2005 | Therapy | | [phone] | | +--------+ + + + + [...] | | GAS/HUMIDIT | OXYGEN. Viridiana Yu JAVA ANALYST | | | | | Y |Viridiana Yu JAVA ANALYST | | | | + + + [...] [facility] | [address] | [place], [place] | | | DIAGNOSTICS - | [address] | [address] | | | PULMONARY FUNCTION | | | | + + + + + documented in this encounter Visit Diagnoses Not on filedocumented in this encounter"
--- OUTSIDE RECORDS SUMMARY | ~2019-01-26 | XMS | Encounter Summary ---
Demographics + + + | Address | [address] | | | [place] [address] | + + + | Home Phone [...] [place], [place] | | | | | [address] | | + + + + + Care Team Providers + +------+ + | Care Type Inspector Name | Role | Phone | + +------+ + PCP | Unavailable | + +------+ + Encounter Details +--------+ + + + + | Date | Type | Department | Care Team | Description | +--------+ + + + + | 03/07/ | Respiratory | | Other, Faculty | | | 2005 | Therapy | | [phone] | | +--------+ + + + + [...] Sethi, | | | | | | AUTOMOBILE MECHANIC HELPER | | | | + + [...] [facility] | [address] | [facility] [place] | | | DIAGNOSTICS - | [address] | [address] | | | PULMONARY FUNCTION | | | | + + + + + documented in this encounter Visit Diagnoses Not on filedocumented in this encounter"
--- OUTSIDE RECORDS SUMMARY | ~2019-01-26 | XMS | Encounter Summary ---
Demographics + + + | Address | [address] | | | [place] [address] | + + + | Home Phone [...] [place], [place] | | | | | [address] | | + + + + + Care Team Providers + +------+ + | Care Stove Mechanic Name | Role | Phone | [...] | Transcriptions | + + | Interface, Market Research Consultant In - 03/16/2006 2:06 AM PDT | | [id number] | | [id number] A[place] Peck [id number] | | | | Date: 02/15/2006 | | | | Attending Surgeon: Thai De La Garza M.D. 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 | | | | Procedure: Tracheostomy. | | | | Indication: This patient has a severe brain injury. He has been unable to | | safely be weaned from the ventilator. I think we should proceed with the | | tracheostomy. His agreed and signed the informed consent. | | | | Findings: Normal trachea. | | | | Procedure: The patient's neck was palpated in a sterile fashion, keeping | | it in a neutral position, due to the fact that he has a cervical spine | | fracture. Transverse incision at above the sternum was made, carried down | | through the subcutaneous tissues. One large vein was ligated with 3-0 | | Vicryl. The trachea was exposed. The isthmus of the thyroid was divided | | with Bovie cautery. Traction sutures of 0 Tevdek were placed in the right | | and the left side. A tracheotomy between the first and second tracheal | | ring was made and carried down through the second ring. Tracheal dilator | | enabled us to look directly into the trachea. Under direct vision, the | | endotracheal tube was withdrawn. Thick secretions were suctioned out of | | the trachea, and a #8 Shiley was inserted. There was good return of CO2 | | and minimal bleeding. We suctioned the patient clear of secretions. His | | O2 saturations were 99% when we left the operating room. | | | | I was present for the entire procedure and in fact performed it. | | | | | | | | Thai De La Garza M.D., F.A.C.S. | | fireworks display specialist @ [employer] [facility] | | | | SH[facility] / HS | | [phone] / [id number] / [phone] / [phone] | | | | | | E: 02/28/2006 vita | | | | Electronically signed by Thai De La Garza 03-15-2006 05:35:16 PM | + + documented in this encounter Visit Diagnoses Not on filedocumented in this encounter"
--- OUTSIDE RECORDS SUMMARY | ~2019-01-26 | XMS | Encounter Summary ---
Demographics + + + | Address | [address] | | | [place] [address] | + + + | Home Phone [...] [place], [place] | | | | | [address] | | + + + + + Care Team Providers + +------+ + | Care Child Care Development Specialist Name | Role | Phone | + +------+ + PCP | Unavailable | + +------+ + Encounter Details +--------+ + + + + | Date | Type | Department | Care Team | Description | +--------+ + + + + | 03/04/ | Respiratory | | Other, Faculty | | | 2005 | Therapy | | [phone] | | +--------+ + + + + [...] Mac, | | | | | | HEALTH SANITARIAN | | | | + + + [...] [facility] | [address] | [place], [place] | | | DIAGNOSTICS - | [address] | [address] | | | PULMONARY FUNCTION | | | | + + + + + documented in this encounter Visit Diagnoses Not on filedocumented in this encounter"
--- OUTSIDE RECORDS SUMMARY | ~2019-01-26 | XMS | Encounter Summary ---
Demographics + + + | Address | [address] | | | [place] [address] | + + + | Home Phone | | + + + | Preferred Language | Unknown | + + + | Marital Status | | + + + | Latter-Day Affiliation | NON | + + + [...] [place], [place] | | | | | [address] | | + + + + + Care Team Providers + +------+ + | Care Water Plumber Name | Role | Phone | + +------+ + PCP | Unavailable | + +------+ + Encounter Details +--------+ + + + + | Date | Type | Department | Care Team | Description | +--------+ + + + + | 03/04/ | Respiratory | | Other, Faculty | | | 2005 | Therapy | | [phone] | | +--------+ + + + + [...] Vora, | | | | | | PACKER INSPECTOR | | | | + + [...] [facility] | [address] | [place], [place] | | | DIAGNOSTICS - | [address] | [address] | | | PULMONARY FUNCTION | | | | + + + + + documented in this encounter Visit Diagnoses Not on filedocumented in this encounter"
--- OUTSIDE RECORDS SUMMARY | ~2019-01-26 | XMS | Encounter Summary ---
Demographics + + + | Address | [address] | | | [place] [address] | + + + | Home Phone [...] [place], [place] | | | | | [address] | | + + + + + Care Team Providers + +------+ + | Care Receiving Supervisor Name | Role | Phone | + +------+ + PCP | Unavailable | + +------+ + Encounter Details +--------+ + + + + | Date | Type | Department | Care Team | Description | +--------+ + + + + | 02/21/ | Procedure - | | Lab, Vascular | Vascular | | 2005 | | | | | | | [...] | + +--------+ + + + | VASCULAR FLOW | | 02/21/2006 | | | | IMAGING, NONCARDIAC | | | | | | - VASC LAB | | | | | + +--------+ + + + documented in this encounter Visit Diagnoses Not on filedocumented in this encounter"
--- OUTSIDE RECORDS SUMMARY | ~2019-01-26 | XMS | Encounter Summary ---
Demographics + + + | Address | [address] | | | [place] [address] | + + + | Home Phone [...] [place], [place] | | | | | [address] | | + + + + + Care Team Providers + +------+ + | Care Biostatistician Name | Role | Phone | + +------+ + PCP | Unavailable | + +------+ + Encounter Details +--------+ + + + + | Date | Type | Department | Care Team | Description | +--------+ + + + + | 03/03/ | Respiratory | | Other, Faculty | | | 2005 | Therapy | | [phone] | | +--------+ + + + + [...] for this | | | e | 12:14 AM | | procedure are in the | | | | PDT | | results section. | + +--------+ + + + documented in this encounter Results MEDICAL GAS/HUMIDITY (03/03/2006 12:14 AM PDT) + + + + + + | Component | Value | Ref Range | Performed | Pathologist | | | | | At | Signature | + + + + + + | [facility] | CONTINUOUS PULSE | | | | | GAS/HUMIDIT | OXIMETRY IN USE. | | | | | Y | HEATED HUMIDITY AT 31 % | | | | | | OXYGEN. PATIENTS PAIN | | | | | | ASSESSED AND WAS ZERO | | | | | | ON A SCALE OF ZERO TO | | | | | | 10. SUCTIONED .RHONCHI | | | | | | BILATERAL . REQUIRES | | | | | | SUCTION: THICK WHITE AND | | | | | | YELLOW SPUTUM. | | | | | | BREATHSOUNDS IMPROVED | | | | | | DYLAN DesouzaP | | | | + + + [...] [facility] | [address] | [place], [place] | | | DIAGNOSTICS - | [address] | [address] | | | PULMONARY FUNCTION | | | | + + + + + documented in this encounter Visit Diagnoses Not on filedocumented in this encounter"
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
--- OUTSIDE RECORDS SUMMARY | ~2019-01-26 | XMS | Encounter Summary ---
Demographics + + + | Address | [address] | | | [place] [address] | + + + | Home Phone [...] [place], [place] | | | | | [address] | | + + + + + Care Team Providers + +------+ + | Care Industrial Psychology Teacher Name | Role | Phone | [...] | Transcriptions | + + | Interface, Advertising Dispatch Clerk In - 03/16/2006 2:06 AM PDT | | [id number] | | [id number] ASHLEY Peck [id number] [id number] | | | | Date: 02/13/2006 | | | | Attending Surgeon: Thai De La Garza M.D., DeepthiCRamiroS. | | | | Blood Bank Laboratory Technician(s): Jazzmine Lozano MD | | | | [...] De La Garza M.D., F.A.C.S. | | candle cutter @ geriatric psychiatrist Service | | | | SHARA / HS | | [id number] / [id number] / [id number] / | | | | | | E: 03/11/2006 ajm | | | | | | Electronically signed by Thai De La Garza 03-15-2006 05:35:06 PM | + + documented in this encounter Visit Diagnoses Not on filedocumented in this encounter"
--- OUTSIDE RECORDS SUMMARY | ~2019-01-26 | XMS | Encounter Summary ---
Demographics + + + | Address | [address] | | | [place] [address] | + + + | Home Phone [...] [place], [place] | | | | | [address] | | + + + + + Care Team Providers + +------+ + | Care Railway Patrol Officer Name | Role | Phone | + +------+ + PCP | Unavailable | + +------+ + Encounter Details +--------+ + + + + | Date | Type | Department | Care Team | Description | +--------+ + + + + | 03/02/ | Respiratory | | Other, Faculty | | | 2005 | Therapy | | [phone] | | +--------+ + + + + [...] [facility] | [address] | [place], [place] | | | DIAGNOSTICS - | [place] | [phone] | | | PULMONARY FUNCTION | | | | + + + + + documented in this encounter Visit Diagnoses Not on filedocumented in this encounter"
--- OUTSIDE RECORDS SUMMARY | ~2019-01-26 | XMS | Encounter Summary ---
Demographics + + + | Address | [address] | | | [place] [address] | + + + | Home Phone [...] [place], [place] | | | | | [address] | | + + + + + Care Team Providers + +------+ + | Care Biological Science Aide Name | Role | Phone | + +------+ + PCP | Unavailable | + +------+ + Encounter Details +--------+ + + + + | Date | Type | Department | Care Team | Description | +--------+ + + + + | 03/11/ | Respiratory | | Other, Faculty | | | 2005 | Therapy | | [phone] | | +--------+ + + + + [...] this | | | e | 6:34 PM | | procedure are in the | | | | PDT | | results section. | + +--------+ + + + documented in this encounter Results MEDICAL GAS/HUMIDITY (03/11/2006 6:34 PM PDT) + + + + + + | Component | Value | Ref Range | Performed | Pathologist | | | | | At | Signature | + + + + + + | [facility] | HEATED HUMIDITY AT 24 % | | | | | GAS/HUMIDIT | AF[facility]. Irina Luo, | | | | | Y | INVENTORY ACCOUNTANT | | | | + + + [...] [facility] | [address] | [place] | | | DIAGNOSTICS - | [place] | [phone] | | | PULMONARY FUNCTION | | | | + + + + + documented in this encounter Visit Diagnoses Not on filedocumented in this encounter"
--- OUTSIDE RECORDS SUMMARY | ~2019-01-26 | XMS | Encounter Summary ---
Demographics + + + | Address | [address] | | | [place] [address] | + + + | Home Phone [...] [place], [place] | | | | | [address] | | + + + + + Care Team Providers + +------+ + | Care Postdoctoral Scientist Name | Role | Phone | + +------+ + PCP | Unavailable | + +------+ + Encounter Details +--------+ + + + + | Date | Type | Department | Care Team | Description | +--------+ + + + + | 02/21/ | Respiratory | | Other, Faculty | | | 2005 | Therapy | | [phone] | | +--------+ + + + + [...] + + + | [facility] | [address] | [place], [place] | | | DIAGNOSTICS - | [place] | [phone] | | | PULMONARY FUNCTION | | | | + + + + + documented in this encounter Visit Diagnoses Not on filedocumented in this encounter"
--- OUTSIDE RECORDS SUMMARY | ~2019-01-26 | XMS | Encounter Summary ---
Demographics + + + | Address | [address] | | | [place] [address] | + + + | Home Phone [...] [place], [place] | | | | | [address] | | + + + + + Care Team Providers + +------+ + | Care Warehouse Lead Name | Role | Phone | + +------+ + PCP | Unavailable | + +------+ + Encounter Details +--------+ + + + + | Date | Type | Department | Care Team | Description | +--------+ + + + + | 03/04/ | Respiratory | | Other, Faculty | | | 2005 | Therapy | | [phone] | | +--------+ + + + + [...] Vora, | | | | | | PRODUCT CRAFTSMAN | | | | + + + [...] [facility] | [address] | [place], [place] | | | DIAGNOSTICS - | [place] | [phone] | | | PULMONARY FUNCTION | | | | + + + + + documented in this encounter Visit Diagnoses Not on filedocumented in this encounter"
--- OUTSIDE RECORDS SUMMARY | ~2019-01-26 | XMS | Encounter Summary ---
Demographics + + + | Address | 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 | Role | Phone | [...] [address] | | | | | [facility] Mailcode: | [address] | | | | | [address] [place], [place] | [place] | | | | | [address] | [address] | | | | | [phone] | [phone] | | | | | | | [...] PDT | + +---------+--------+ + + | AD-RUXX-LFFB-DONT | Lab | Routin | | 02/09/2006 [...] | | + +---------+ + + | [facility] DEPARTMENT OF | | | | [...] | + + + + + | [facility] DEPARTMENT OF | [address] | [place] [address] | | | PATHOLOGY | [address] | | | + + + + + | [facility] DEPARTMENT OF | [address] | [place] [address] | | | PATHOLOGY | [address] [...] | | | | | performed by [place] | | | | | | [facility] | | | | | | Laboratories. | | | | + + + + + + + + | Specimen | + + | | + + + + + + + | Performing | Address | City/State/Zipcode | Phone Number | | Organization | | | | + + + + + | [facility] | [address] | [place] [address] | | | LABORATORY | | | [...] | | + +---------+ + + | [facility] DEPARTMENT OF | | | | [...] + + + | [facility] | [address] | [place] [address] | | | LAB-MICRO | | | [...] | + + + + + | [facility] | [address] | [place] [address] | | | LAB-MICRO | | | [...] | | + +---------+ + + | [facility] DEPARTMENT OF | | | | [...] DEPARTMENT OF | [address] | [place] [address] | | | PATHOLOGY | [address] | | | + + + + + | [facility] DEPARTMENT OF | [address] | [place] [address] | | | PATHOLOGY | [address] [...] DEPARTMENT OF | [address] | [place] [address] | | | PATHOLOGY | [address] | | | + + + + + | [facility] DEPARTMENT OF | [address] | [place] [address] | | | PATHOLOGY | [address] [...] | + + + + + | [facility] | [address] | [place] [address] | | | PATHOLOGY | [address] | | | + + + + + | [facility] | [address] [place] [address] [address] | [place] [address] | | | PATHOLOGY | [address] [...] | + + + + + | [facility] | [facility] | [place] [address] | | | PATHOLOGY | [address] | | | + + + + + | [facility] | [address] [place] [address] | [place] [address] | | | PATHOLOGY | [address] [...] DEPARTMENT OF | [address] | [place] [address] | | | PATHOLOGY | [address] | | | + + + + + | [facility] DEPARTMENT OF | [address] [facility] | [place] [address] | | | PATHOLOGY | [address] [...] | | | | | | [facility] | | | | | | Laboratory. | | | | + + + + + + + + | Specimen | + + | | + + + + + + + | Performing | Address | City/State/Zipcode | Phone Number | | Organization | | | | + + + + + | [facility] | [address] | [place] [address] | | | LAB-MICRO | | | [...] [place] | | | | | | [facility] | | | | | | Laboratory. | | | | + + + + + + + + | Specimen | + + | | + + + + + + + | Performing | Address | City/State/Zipcode | Phone Number | | Organization | | | | + + + + + | [facility] | [address] | [place] [address] | | | LAB-MICRO | | | [...] | + + + + + | [facility] | [address] [facility] | [place] [address] | | | PATHOLOGY | [address] | | | + + + + + | [facility] DEPARTMENT | [address] [facility] | [place] [address] | | | PATHOLOGY | [address] [...] | | | | | | [facility] | | | | | | Laboratories. | | | | + + + + + + + + | Specimen | + + | | + + + + + + + | Performing | Address | City/State/Zipcode | Phone Number | | Organization | | | | + + + + + | [facility] | [address] | [place] [address] | | | LABORATORY | | | [...] | + + + + + | [facility] | [address] [facility] | [place] [address] | | | PATHOLOGY | [address] | | | + + + + + | [facility] DEPARTMENT | [address] [facility] | [place] [address] | | | PATHOLOGY | [address] [...] | + + + + + | [facility] DEPARTMENT OF | [address] | [place] [address] | | | PATHOLOGY | [address] | | | + + + + + | [facility] DEPARTMENT OF | [address] | [place] [address] | | | PATHOLOGY | [address] [...] DEPARTMENT OF | [address] | [place] [address] | | | PATHOLOGY | [address] | | | + + + + + | [facility] DEPARTMENT OF | [address] | [place] [address] | | | PATHOLOGY | [address] | | | + + + + + MAGNESIUM, PLASMA (03/07/2006 6:35 AM PDT) + +-------+ + + + | Component | Value | Ref Range | Performed | Pathologist | | | | | At | Signature | + +-------+ + + + | MAGNESIUM,P | 2.3 | 1.8 - 2.5 mg/dL | [facility] | | | LASMA | | [...] | + + + + + | [facility] | [address] | [place] [address] | | | PATHOLOGY | [address] | | | + + + + + | [facility] | [facility] | [place] [address] | | | PATHOLOGY | [address] [...] | + + + + + | [facility] | [address] [facility] | [place] [address] | | | PATHOLOGY | [address] | | | + + + + + | [facility] DEPARTMENT OF | [address] [facility] | [place] [address] | | | PATHOLOGY | [address] [...] | + + + + + | [facility] | [address] | [place] [address] | | | LAB-MICRO | | | [...] [place] | | | | | | [facility] | | | | | | Laboratory. | | | | + + + + + + + + | Specimen | + + | | + + + + + + + | Performing | Address | City/State/Zipcode | Phone Number | | Organization | | | | + + + + + | [facility] | [address] | [place] [address] | | | LAB-MICRO | | | [...] + + + | STOOL DATE | [id number] | | | | | COLLECTION | [...] + + + | [facility] | [address] | [place] [address] | | | LAB-MICRO | | | [...] DEPARTMENT OF | [address] | [place] [address] | | | PATHOLOGY | [address] | | | + + + + + | [facility] DEPARTMENT OF | [address] | [place] [address] | | | PATHOLOGY | [address] [...] DEPARTMENT OF | [address] | [place] [address] | | | PATHOLOGY | [address] | | | + + + + + | [facility] DEPARTMENT OF | [address] | [place] [address] | | | PATHOLOGY | [address] [...] HOSPITAL OF | [address] | [place] [address] | | | PATHOLOGY | [address] | | | + + + + + | [facility] | [facility] [address] | [place] [address] | | | PATHOLOGY | [address] [...] | + + + + + | [facility] | [address] [place] [address] [address] | [place] [address] | | | PATHOLOGY | [address] | | | + + + + + | [facility] DEPARTMENT OF | [address] [place] [address] [address] | [place] [address] | | | PATHOLOGY | [address] [...] DEPARTMENT OF | [address] | [place] [address] | | | PATHOLOGY | [address] | | | + + + + + | [facility] DEPARTMENT OF | [address] | [place] [address] | | | PATHOLOGY | [address] [...] | + + + + + | [facility] | [address] [facility] | [place] [address] | | | PATHOLOGY | [address] | | | + + + + + | [facility] | [address] [facility] | [place] [address] | | | PATHOLOGY | [address] [...] DEPARTMENT OF | [address] | [place] [address] | | | PATHOLOGY | [address] | | | + + + + + | [facility] DEPARTMENT OF | [address] | [place] [address] | | | PATHOLOGY | [address] [...] DEPARTMENT OF | [address] | [place] [address] | | | PATHOLOGY | [address] | | | + + + + + | [facility] DEPARTMENT | [address] | [place] [address] | | | PATHOLOGY | [address] [...] DEPARTMENT OF | [address] | [place] [address] | | | PATHOLOGY | [address] | | | + + + + + | [facility] DEPARTMENT OF | [address] | [place] [address] | | | PATHOLOGY | [address] [...] | + + + + + | [facility] | [facility] | [place] [address] | | | PATHOLOGY | [address] | | | + + + + + | [facility] DEPARTMENT OF | [address] | [place] [address] | | | PATHOLOGY | [address] [...] | + + + + + | [facility] DEPARTMENT OF | [address] | [place] [address] | | | PATHOLOGY | [address] | | | + + + + + | [facility] DEPARTMENT OF | [address] | [place] [address] | | | PATHOLOGY | [address] [...] | + + + + + | [facility] | [address] [facility] | [place] [address] | | | PATHOLOGY | [address] | | | + + + + + | [facility] | [address] [facility] | [place] [address] | | | PATHOLOGY | [address] [...] | + + + + + | [facility] | [address] [facility] | [place] [address] | | | PATHOLOGY | [address] | | | + + + + + | [facility] | [address] [facility] | [place] [address] | | | PATHOLOGY | [address] [...] DEPARTMENT OF | [address] | [place] [address] | | | PATHOLOGY | [address] | | | + + + + + | [facility] DEPARTMENT OF | [address] | [place] [address] | | | PATHOLOGY | [address] | | | + + + + + MAGNESIUM, PLASMA (02/25/2006 6:36 AM PDT) + +-------+ + + + | Component | Value | Ref Range | Performed | Pathologist | | | | | At | Signature | + +-------+ + + + | MAGNESIUM,P | 2.2 | 1.8 - 2.5 mg/dL | [facility] | | | LASMA | | [...] | + + + + + | [facility] DEPARTMENT OF | [address] [facility] | [place] [address] | | | PATHOLOGY | [address] | | | + + + + + | [facility] | [address] [facility] | [place] [address] | | | PATHOLOGY | [address] [...] | + + + + + | [facility] DEPARTMENT OF | [facility] | [place] [address] | | | PATHOLOGY | [address] | | | + + + + + | [facility] DEPARTMENT OF | [facility] | [place] [address] | | | PATHOLOGY | [address] [...] | + + + + + | [facility] DEPARTMENT OF | [address] [facility] | [place] [address] | | | PATHOLOGY | [address] | | | + + + + + | [facility] DEPARTMENT OF | [address] [facility] | [place] [address] | | | PATHOLOGY | [address] [...] OF | [address] | [place] [address] | | | PATHOLOGY | [address] | | | + + + + + | [facility] DEPARTMENT OF | [address] | [place] [address] | | | PATHOLOGY | [address] [...] | + + + + + | [facility] | [address] [facility] | [place] [address] | | | PATHOLOGY | [address] | | | + + + + + | [facility] | [address] [facility] | [place] [address] | | | PATHOLOGY | [address] | | | + + + + + PHOSPHORUS, PLASMA (02/23/2006 9:05 AM PDT) + +-------+ + + + | Component | Value | Ref Range | Performed | Pathologist | | | | | At | Signature | + +-------+ + + + | PHOSPHORUS, | 2.8 | 2.4 - 4.7 mg/dL | [facility] | | | PLASMA | | [...] | + + + + + | [facility] DEPARTMENT OF | [address] | [place] [address] | | | PATHOLOGY | [address] | | | + + + + + | [facility] DEPARTMENT OF | [address] | [place] [address] | | | PATHOLOGY | [address] [...] DEPARTMENT OF | [address] | [place] [address] | | | PATHOLOGY | [address] | | | + + + + + | [facility] DEPARTMENT OF | [address] | [place] [address] | | | PATHOLOGY | [address] [...] DEPARTMENT OF | [address] | [place] [address] | | | PATHOLOGY | [address] | | | + + + + + | [facility] DEPARTMENT OF | [address] | [place] [address] | | | PATHOLOGY | [address] [...] | + + + + + | [facility] DEPARTMENT OF | [address] [facility] | [place] [address] | | | PATHOLOGY | [address] | | | + + + + + | [facility] DEPARTMENT OF | [address] [facility] | [place] [address] | | | PATHOLOGY | [address] [...] DEPARTMENT OF | [address] | [place] [address] | | | PATHOLOGY | [address] | | | + + + + + | [facility] DEPARTMENT OF | [address] | [place] [address] | | | PATHOLOGY | [address] [...] DEPARTMENT OF | [address] | [place] [address] | | | PATHOLOGY | [address] | | | + + + + + | [facility] DEPARTMENT OF | [address] | [place] [address] | | | PATHOLOGY | [address] [...] HOSPITAL OF | [address] | [place] [address] | | | PATHOLOGY | [address] | | | + + + + + | [facility] | [facility] [address] | [place] [address] | | | PATHOLOGY | [address] [...] DEPARTMENT OF | [address] | [place] [address] | | | PATHOLOGY | [address] | | | + + + + + | [facility] | [address] | [place] [address] | | | PATHOLOGY | [address] [...] DEPARTMENT OF | [address] | [place] [address] | | | PATHOLOGY | [address] | | | + + + + + | [facility] DEPARTMENT OF | [address] | [place] [address] | | | PATHOLOGY | [address] [...] | + + + + + | [facility] DEPARTMENT OF | [address] | [place] [address] | | | PATHOLOGY | [address] | | | + + + + + | [facility] DEPARTMENT OF | [facility] | [place] [address] | | | PATHOLOGY | [address] [...] | + + + + + | [facility] DEPARTMENT OF | [address] [facility] | [place] [address] | | | PATHOLOGY | [address] | | | + + + + + | [facility] DEPARTMENT OF | [address] [facility] | [place] [address] | | | PATHOLOGY | [address] [...] + + | [facility] DEPARTMENT OF | [address] | [place] [address] | | | PATHOLOGY | [address] | | | + + + + + | [facility] DEPARTMENT OF | [address] | [place] [address] | | | PATHOLOGY | [address] [...] | + + + + + | [facility] | [address] | [place] [address] | | | PATHOLOGY | [address] | | | + + + + + | [facility] | [address] | [place] [address] | | | PATHOLOGY | [address] [...] | + + + + + | [facility] DEPARTMENT OF | [address] | [place] [address] | | | PATHOLOGY | [address] | | | + + + + + | [facility] DEPARTMENT OF | [address] | [place] [address] | | | PATHOLOGY | [address] [...] | + + + + + | [facility] DEPARTMENT | [address] [facility] | [place] [address] | | | PATHOLOGY | [address] | | | + + + + + | [facility] DEPARTMENT OF | [address] [facility] | [place] [address] | | | PATHOLOGY | [address] [...] | + + + + + | [facility] | [address] | [place] [address] | | | PATHOLOGY | [address] | | | + + + + + | [facility] | [facility] | [place] [address] | | | PATHOLOGY | [address] [...] | + + + + + | [facility] | [address] | [place] [address] | | | PATHOLOGY | [address] | | | + + + + + | [facility] | [facility] [facility] | [place] [address] | | | PATHOLOGY | [address] [...] DEPARTMENT OF | [address] | [place] [address] | | | PATHOLOGY | [address] | | | + + + + + | [facility] | [address] | [place] [address] | | | PATHOLOGY | [address] [...] DEPARTMENT OF | [address] | [place] [address] | | | PATHOLOGY | [address] | | | + + + + + | [facility] | [address] | [place] [address] | | | PATHOLOGY | [address] [...] | | | | Test performed at [place] | | | | | | [facility] | | | | | | Laboratory. | | | | + + + + + + + + | Specimen | + + | | + + + + + + + | Performing | Address | City/State/Zipcode | Phone Number | | Organization | | | | + + + + + | [facility] | [address] | [place] [address] | | | LAB-MICRO | | | [...] | | | | | performed at [place] | | | | | | [facility] | | | | | | Laboratory. | | | | + + + + + + + + | Specimen | + + | | + + + + + + + | Performing | Address | City/State/Zipcode | Phone Number | | Organization | | | | + + + + + | [facility] | [address] | [place] [address] | | | LAB-MICRO | | | [...] | | | | | performed at [place] | | | | | | [facility] | | | | | | Laboratory. | | | | + + + + + + + + | Specimen | + + | | + + + + + + + | Performing | Address | City/State/Zipcode | Phone Number | | Organization | | | | + + + + + | [facility] | [address] | [place] [address] | | | LAB-MICRO | | | [...] | | | | | performed at [place] | | | | | | [facility] | | | | | | Laboratory. | | | | + + + + + + + + | Specimen | + + | | + + + + + + + | Performing | Address | City/State/Zipcode | Phone Number | | Organization | | | | + + + + + | [facility] | [address] | [place] [address] | | | LAB-MICRO | | | [...] at | | | | | | [facility] | | | | | | [facility]. | | | | + + + + + + + + | Specimen | + + | | + + + + + + + | Performing | Address | City/State/Zipcode | Phone Number | | Organization | | | | + + + + + | [facility] | [address] | [place] [address] | | | LAB-MICRO | | | [...] | + + + + + | [facility] DEPARTMENT OF | [address] | [place] [address] | | | PATHOLOGY | [address] | | | + + + + + | [facility] DEPARTMENT OF | [address] | [place] [address] | | | PATHOLOGY | [address] [...] | + + + + + | [facility] DEPARTMENT OF | [address] | [place] [address] | | | PATHOLOGY | [address] | | | + + + + + | [facility] DEPARTMENT OF | [address] | [place] [address] | | | PATHOLOGY | [address] [...] | + + + + + | [facility] DEPARTMENT OF | [address] | [place] [address] | | | PATHOLOGY | [address] | | | + + + + + | [facility] DEPARTMENT OF | [address] | [place] [address] | | | PATHOLOGY | [address] | | | + + + + + BASIC METABOLIC SET (02/19/2006 2:30 AM PDT) + +---------+ + + + | Component | Value | Ref Range | Performed | Pathologist | | | | | At | Signature | + +---------+ + + + | GLUCOSE, | 150 (H) | 65 - 110 mg/dL | [facility] | | | PLASMA | | [...] + | [facility] DEPARTMENT OF | [address] [facility] | [place] [address] | | | PATHOLOGY | [address] | | | + + + + + | [facility] DEPARTMENT OF | [address] [facility] | [place] [address] | | | PATHOLOGY | [address] [...] | + + + + + | [facility] DEPARTMENT OF | [address] [facility] | [place] [address] | | | PATHOLOGY | [address] | | | + + + + + | [facility] DEPARTMENT OF | [address] | [place] [address] | | | PATHOLOGY | [address] [...] | + + + + + | [facility] | [address] [facility] | [place] [address] | | | PATHOLOGY | [address] | | | + + + + + | [facility] | [address] [facility] | [place] [address] | | | PATHOLOGY | [address] [...] | + + + + + | [facility] DEPARTMENT OF | [address] | [place] [address] | | | PATHOLOGY | [address] | | | + + + + + | [facility] DEPARTMENT OF | [address] [facility] | [place] [address] | | | PATHOLOGY | [address] [...] DEPARTMENT OF | [address] | [place] [address] | | | PATHOLOGY | [address] | | | + + + + + | [facility] DEPARTMENT OF | [address] | [place] [address] | | | PATHOLOGY | [address] [...] | + + + + + | [facility] | [address] | [place] [address] | | | PATHOLOGY | [address] | | | + + + + + | [facility] | [address] [facility] | [place] [address] | | | PATHOLOGY | [address] [...] | | | | | performed at [place] | | | | | | [facility] | | | | | | Laboratory. | | | | + + + + + + + + | Specimen | + + | | + + + + + + + | Performing | Address | City/State/Zipcode | Phone Number | | Organization | | | | + + + + + | [facility] | [address] | [place] [address] | | | LAB-MICRO | | | [...] | | + +---------+ + + | [facility] DEPARTMENT OF | | | | [...] | + + + + + | [facility] DEPARTMENT OF | [address] | [place] [address] | | | PATHOLOGY | [address] | | | + + + + + | [facility] DEPARTMENT OF | [address] [facility] | [place] [address] | | | PATHOLOGY | [address] [...] DEPARTMENT OF | [address] | [place] [address] | | | PATHOLOGY | [address] | | | + + + + + | [facility] DEPARTMENT OF | [address] | [place] [address] | | | PATHOLOGY | [address] | | | + + + + + MAGNESIUM, PLASMA (02/17/2006 1:39 AM PDT) + +-------+ + + + | Component | Value | Ref Range | Performed | Pathologist | | | | | At | Signature | + +-------+ + + + | MAGNESIUM,P | 2.2 | 1.8 - 2.5 mg/dL | [facility] | | | LASMA | | [...] | + + + + + | [facility] DEPARTMENT OF | [address] | [place] [address] | | | PATHOLOGY | [address] | | | + + + + + | [facility] | [address] | [place] [address] | | | PATHOLOGY | [address] [...] | + + + + + | [facility] | [address] | [place] [address] | | | PATHOLOGY | [address] | | | + + + + + | [facility] | [address] [place] [address] | [place] [address] | | | PATHOLOGY | [address] [...] | + + + + + | [facility] | [address] | [place] [address] | | | PATHOLOGY | [address] | | | + + + + + | [facility] DEPARTMENT OF | [address] | [place] [address] | | | PATHOLOGY | [address] [...] | | + +---------+ + + | [facility] DEPARTMENT OF | | | | [...] + | [facility] DEPARTMENT OF | [address] | [place] [address] | | | PATHOLOGY | [address] | | | + + + + + | [facility] DEPARTMENT OF | [address] | [place] [address] | | | PATHOLOGY | [address] [...] | + + + + + | [facility] | [address] | [place] [address] | | | PATHOLOGY | [address] | | | + + + + + | [facility] | [address] | [place] [address] | | | PATHOLOGY | [address] [...] DEPARTMENT OF | [address] | [place] [address] | | | PATHOLOGY | [address] | | | + + + + + | [facility] DEPARTMENT OF | [address] | [place] [address] | | | PATHOLOGY | [address] [...] | + + + + + | [facility] DEPARTMENT OF | [address] | [place] [address] | | | PATHOLOGY | [address] | | | + + + + + | [facility] | [address] | [place] [address] | | | PATHOLOGY | [address] [...] | + + + + + | [facility] DEPARTMENT OF | [facility] | [place] [address] | | | PATHOLOGY | [address] | | | + + + + + | [facility]PARTMENT OF | [facility] | [place] [address] | | | PATHOLOGY | [address] [...] | + + + + + | [facility] DEPARTMENT OF | [address] | [place] [address] | | | PATHOLOGY | [address] | | | + + + + + | [facility] DEPARTMENT OF | [facility] | [place] [address] | | | PATHOLOGY | [address] [...] DEPARTMENT OF | [address] | [place] [address] | | | PATHOLOGY | [address] | | | + + + + + | [facility] DEPARTMENT OF | [address] | [place] [address] | | | PATHOLOGY | [address] [...] | + + + + + | [facility] | [address] | [place] [address] | | | PATHOLOGY | [address] | | | + + + + + | [facility] DEPARTMENT | [address] | [place] [address] | | | PATHOLOGY | [address] [...] | + + + + + | [facility] | [address] | [place] [address] | | | PATHOLOGY | [address] | | | + + + + + | [facility] | [facility] | [place] [address] | | | PATHOLOGY | [address] [...] + + + | [facility] | [address] | [place] [address] | | | LAB-MICRO | | | [...] | | | | | performed at [place] | | | | | | [facility] | | | | | | Laboratory. | | | | + + + + + + + + | Specimen | + + | | + + + + + + + | Performing | Address | City/State/Zipcode | Phone Number | | Organization | | | | + + + + + | [facility] | [address] | [place] [address] | | | LAB-MICRO | | | [...] | + + + + + | [facility] | [address] | [place] [address] | | | PATHOLOGY | [address] | | | + + + + + | [facility] | [address] [place] [address] | [place] [address] | | | PATHOLOGY | [address] [...] | + + + + + | [facility] | [address] | [place] [address] | | | PATHOLOGY | [address] | | | + + + + + | [facility] | [address] | [place] [address] | | | PATHOLOGY | [address] [...] | | | | Test performed at [place] | | | | | | [facility] | | | | | | Laboratory. | | | | + + + + + + + + | Specimen | + + | | + + + + + + + | Performing | Address | City/State/Zipcode | Phone Number | | Organization | | | | + + + + + | [facility] | [address] | [place] [address] | | | LAB-MICRO | | | [...] | | | | | performed at [place] | | | | | | [facility] | | | | | | Laboratory. | | | | + + + + + + + + | Specimen | + + | | + + + + + + + | Performing | Address | City/State/Zipcode | Phone Number | | Organization | | | | + + + + + | [facility] | [address] | [place] [address] | | | LAB-MICRO | | | [...] | | | | | | [address] | | | | | | thromycin [...] | | | | | performed at [place] | | | | | | [facility] | | | | | | Laboratory. | | | | + + + + + + + + | Specimen | + + | | + + + + + + + | Performing | Address | City/State/Zipcode | Phone Number | | Organization | | | | + + + + + | [facility] | [address] | [place] [address] | | | LAB-MICRO | | | [...] | + + + + + | [facility] | [address] | [place] [address] | | | PATHOLOGY | [address] | | | + + + + + | [facility] | [address] | [place] [address] | | | PATHOLOGY | [address] [...] + | [facility] | [address] | [place] [address] | | | PATHOLOGY | [address] | | | + + + + + | [facility] | [address] | [place] [address] | | | PATHOLOGY | [address] | | | + + + + + MAGNESIUM, PLASMA (02/14/2006 2:05 AM PDT) + +-------+ + + + | Component | Value | Ref Range | Performed | Pathologist | | | | | At | Signature | + +-------+ + + + | MAGNESIUM,P | 2.2 | 1.8 - 2.5 mg/dL | [facility] | | | LASMA | | | [...] | + + + + + | [facility] DE[facility] | [address] | [place] [address] | | | PATHOLOGY | [address] | | | + + + + + | [facility] DEPARTMENT [facility] | [address] | [place] [address] | | | PATHOLOGY | [address] [...] DEPARTMENT OF | [address] | [place], [place] [address] | | | PATHOLOGY | [address] | | | + + + + + | [facility] DEPARTMENT OF | [address] | [place] [address] | | | PATHOLOGY | [address] [...] DEPARTMENT OF | [address] | [place] [address] | | | PATHOLOGY | [address] | | | + + + + + | [facility] DEPARTMENT OF | [address] | [place] [address] | | | PATHOLOGY | [address] [...] | + + + + + | [facility] DE[facility]MENT [facility] | [address] | [place] [address] | | | PATHOLOGY | [address] | | | + + + + + | [facility] DE[facility]MENT [facility] | [facility] | [place] [address] | | | PATHOLOGY | [address] [...] | + + + + + | [facility] | [facility] | [place] [address] | | | PATHOLOGY | [address] | | | + + + + + | [facility] DEPARTMENT [facility] | [facility] | [place] [address] | | | PATHOLOGY | [address] [...] | + + + + + | [facility] DEPARTMENT [facility] | [address] | [place] [address] | | | PATHOLOGY | [address] | | | + + + + + | [facility] | [address] | [place] [address] | | | PATHOLOGY | [address] [...] | + + + + + | [facility] | [address] | [place] [address] | | | PATHOLOGY | [address] | | | + + + + + | [facility] | [address] | [place] [address] | | | PATHOLOGY | [address] [...] | + + + + + | [facility] | [address] | [place] [address] | | | PATHOLOGY | [address] | | | + + + + + | [facility] | [address] | [place] [address] | | | PATHOLOGY | [address] [...] | + + + + + | [facility] | [address] | [place] [address] | | | PATHOLOGY | [address] | | | + + + + + | [facility] | [address] | [place] [address] | | | PATHOLOGY | [address] [...] | + + + + + | [facility] | [address] | [place] [address] | | | PATHOLOGY | [address] | | | + + + + + | [facility] | [address] | [place] [address] | | | PATHOLOGY | [address] [...] DEPARTMENT OF | [address] | [place] [address] | | | PATHOLOGY | [address] | | | + + + + + | [facility] DEPARTMENT OF | [address] | [place] [address] | | | PATHOLOGY | [address] [...] | + + + + + | [facility] | [address] | [place] [address] | | | PATHOLOGY | [address] | | | + + + + + | [facility] | [address] | [place] [address] | | | PATHOLOGY | [address] [...] | | | | | performed at [place] | | | | | | [facility] | | | | | | Laboratory. | | | | + + + + + + + + | Specimen | + + | | + + + + + + + | Performing | Address | City/State/Zipcode | Phone Number | | Organization | | | | + + + + + | [facility] | [address] | [place] [address] | | | LAB-MICRO | | | [...] | | | | | performed at [place] | | | | | | [facility] | | | | | | Laboratory. | | | | + + + + + + + + | Specimen | + + | | + + + + + + + | Performing | Address | City/State/Zipcode | Phone Number | | Organization | | | | + + + + + | [facility] | [address] | [place] [address] | | | LAB-MICRO | | | [...] | | | | | performed at [place] | | | | | | [facility] | | | | | | Laboratory. | | | | + + + + + + + + | Specimen | + + | | + + + + + + + | Performing | Address | City/State/Zipcode | Phone Number | | Organization | | | | + + + + + | [facility] | [address] | [place] [address] | | | LAB-MICRO | | | [...] | | | | | performed at [place] | | | | | | [facility] | | | | | | Laboratory. | | | | + + + + + + + + | Specimen | + + | | + + + + + + + | Performing | Address | City/State/Zipcode | Phone Number | | Organization | | | | + + + + + | [facility] | [address] | [place] [address] | | | LAB-MICRO | | | [...] | + + + + + | [facility] | [address] | [place] [address] | | | PATHOLOGY | [address] | | | + + + + + | [facility] | [address] | [place] [address] | | | PATHOLOGY | [address] [...] | + + + + + | [facility] DE[facility]MENT [facility] | [address] | [place] [address] | | | PATHOLOGY | [address] | | | + + + + + | [facility] DEPARTMENT [facility] | [address] | [place] [address] | | | PATHOLOGY | [address] [...] | + + + + + | [facility] DEPARTMENT OF | [address] | [place] [address] | | | PATHOLOGY | [address] | | | + + + + + | [facility] DEPARTMENT OF | [address] | [place] [address] | | | PATHOLOGY | [address] [...] DEPARTMENT OF | [address] | [place] [address] | | | PATHOLOGY | [address] | | | + + + + + | [facility] DEPARTMENT OF | [address] | [place] [address] | | | PATHOLOGY | [address] [...] + + | [facility]PART[facility] | [facility] | [place] [address] | | | PATHOLOGY | [address] | | | + + + + + | [facility] DEPARTMENT OF | [facility] | [place] [address] | | | PATHOLOGY | [address] [...] DEPARTMENT OF | [address] | [place] [address] | | | PATHOLOGY | [address] | | | + + + + + | [facility]MENT [facility] | [address] | [place] [address] | | | PATHOLOGY | [address] [...] | | + +---------+ + + | [facility] DEPARTMENT OF | | | | [...] | | | | | | the [id number] | | | | | | process. [...] | | + +---------+ + + | [facility] DEPARTMENT OF | | | | [...] | | + +---------+ + + | [facility] DEPARTMENT OF | | | | [...] | + + + + + | [facility] | [address] | [place] [address] | | | PATHOLOGY | [address] | | | + + + + + | [facility] | [address] | [place] [address] | | | PATHOLOGY | [address] [...] | + + + + + | [facility] DEPARTMENT OF | [address] | [place] [address] | | | PATHOLOGY | [address] | | | + + + + + | [facility] DEPARTMENT OF | [address] | [place] [address] | | | PATHOLOGY | [address] [...] | + + + + + | [facility] DEPARTMENT OF | [address] | [place] [address] | | | PATHOLOGY | [address] | | | + + + + + | [facility] DEPARTMENT OF | [address] | [place] [address] | | | PATHOLOGY | [address] [...] | + + + + + | [facility] DEPARTMENT OF | [facility] | [place] [address] | | | PATHOLOGY | [address] | | | + + + + + | [facility] DEPARTMENT OF | [address] | [place] [address] | | | PATHOLOGY | [address] [...] | + + + + + | [facility] DEPARTMENT OF | [address] | [place] [address] | | | PATHOLOGY | [address] | | | + + + + + | [facility] DEPARTMENT OF | [address] | [place] [address] | | | PATHOLOGY | [address] [...] [facility] | | | | | | [facility] | | | | | | Laboratories. | | | | + + + + + + + + | Specimen | + + | | + + + + + + + | Performing | Address | City/State/Zipcode | Phone Number | | Organization | | | | + + + + + | [facility] | [address] | [place] [address] | | | LABORATORY | | | [...] at | | | | | | [facility] | | | | | | [facility]. | | | | + + + + + + + + | Specimen | + + | | + + + + + + + | Performing | Address | City/State/Zipcode | Phone Number | | Organization | | | | + + + + + | [facility] | [address] | [place] [address] | | | LAB-MICRO | | | [...] | | | | | performed at [place] | | | | | | [facility] | | | | | | Laboratory. | | | | + + + + + + + + | Specimen | + + | | + + + + + + + | Performing | Address | City/State/Zipcode | Phone Number | | Organization | | | | + + + + + | [facility] | [address] | [place] [address] | | | LAB-MICRO | | | [...] | | | | | performed at [place] | | | | | | [facility] | | | | | | Laboratory. | | | | + + + + + + + + | Specimen | + + | | + + + + + + + | Performing | Address | City/State/Zipcode | Phone Number | | Organization | | | | + + + + + | [facility] | [address] | [place] [address] | | | LAB-MICRO | | | [...] | | | | Test performed at [place] | | | | | | [facility] | | | | | | Laboratory. | | | | + + + + + + + + | Specimen | + + | | + + + + + + + | Performing | Address | City/State/Zipcode | Phone Number | | Organization | | | | + + + + + | [facility] | [address] | [place] [address] | | | LAB-MICRO | | | [...] + + | Performing | Address | City/State/[facility] Cent[facility]ode | Phone Number | | Organization | | | | + +---------+ + + | [facility] DEPARTMENT OF | | | | [...] opacities | | | | | | customer account representative of | | | | | [...] | + + + + + | [facility] DEPARTMENT OF | [facility] | [place] [address] | | | PATHOLOGY | [address] | | | + + + + + | [facility] DEPARTMENT OF | [address] | [place] [address] | | | PATHOLOGY | [address] [...] | + + + + + | [facility] DEPARTMENT OF | [address] | [place] [address] | | | PATHOLOGY | [address] | | | + + + + + | [facility]MENT OF | [address] | [place] [address] | | | PATHOLOGY | [address] [...] | + + + + + | [facility] | [address] | [place] [address] | | | PATHOLOGY | [address] | | | + + + + + | [facility] | [address] | [place] [address] | | | PATHOLOGY | [address] [...] + | [facility] DEPARTMENT OF | [address] | [place] [address] | | | PATHOLOGY | [address] | | | + + + + + | [facility] | [address] | [place] [address] | | | PATHOLOGY | [address] [...] DEPARTMENT OF | [address] | [place] [address] | | | PATHOLOGY | [address] | | | + + + + + | [facility]MENT OF | [address] | [place] [address] | | | PATHOLOGY | [address] [...] | + + + + + | [facility] | [facility] | [place] [address] | | | PATHOLOGY | [address] | | | + + + + + | [facility] | [address] [place] [address] | [place] [address] | | | PATHOLOGY | [address] [...] | + + + + + | [facility] DEPARTMENT OF | [address] | [place] [address] | | | PATHOLOGY | [address] | | | + + + + + | [facility] | [address] | [place] [address] | | | PATHOLOGY | [address] [...] DEPARTMENT OF | [address] | [place] [address] | | | PATHOLOGY | [address] | | | + + + + + | [facility] DEPARTMENT | [address] | [place] [address] | | | PATHOLOGY | [address] | | | + + + + + MAGNESIUM, PLASMA (02/09/2006 11:38 PM PDT) + +---------+ + + + | Component | Value | Ref Range | Performed | Pathologist | | | | | At | Signature | + +---------+ + + + | MAGNESIUM,P | 1.5 (L) | 1.8 - 2.5 mg/dL | [facility] | | | LASMA | | [...] | + + + + + | [facility] DEPARTMENT OF | [address] | [place] [address] | | | PATHOLOGY | [address] | | | + + + + + | [facility] | [facility] | [place] [address] | | | PATHOLOGY | [address] [...] DEPARTMENT OF | [address] | [place] [address] | | | PATHOLOGY | [address] | | | + + + + + | [facility] | [address] | [place] [address] | | | PATHOLOGY | [address] [...] | + + + + + | [facility] DEPARTMENT OF | [address] | [place] [address] | | | PATHOLOGY | [address] | | | + + + + + | [facility] | [address] | [place] [address] | | | PATHOLOGY | [address] [...] | | | + +---------+ + + CX-WVBT-RBUL-DONT PROCESS (02/09/2006 9:16 PM PDT) + + [...] | + + + + + | [facility] DEPARTMENT OF | [address] | [place] [address] | | | PATHOLOGY | [address] | | | + + + + + | [facility]MENT [facility] | [address] | [place] [address] | | | PATHOLOGY | [address] [...] | + + + + + | [facility] | [address] | [place] [address] | | | PATHOLOGY | [address] | | | + + + + + | [facility] | [address] | [place] [address] | | | PATHOLOGY | [address] [...] | + + + + + | [facility] | [address] | [place] [address] | | | PATHOLOGY | [address] | | | + + + + + | [facility] | [address] | [place] [address] | | | PATHOLOGY | [address] [...] | + + + + + | [facility] DEPARTMENT OF | [address] | [place] [address] | | | PATHOLOGY | [address] | | | + + + + + | [facility] DEPARTMENT OF | [address] | [place] [address] | | | PATHOLOGY | [address] [...] DEPARTMENT OF | [address] | [place] [address] | | | PATHOLOGY | [address] | | | + + + + + | [facility] DEPARTMENT | [address] | [place] [address] | | | PATHOLOGY | [address] [...] | + + + + + | [facility] DEPARTMENT OF | [address] | [place] [address] | | | PATHOLOGY | [address] | | | + + + + + | [facility] DEPARTMENT OF | [address] | [place] [address] | | | PATHOLOGY | [address] [...] | + + + + + | [facility] | [address] | [place] [address] | | | PATHOLOGY | [address] | | | + + + + + | [facility] | [address] | [place] [address] | | | PATHOLOGY | [address] | | | + + + + + documented in this encounter Visit Diagnoses Not on filedocumented in this encounter"
--- OUTSIDE RECORDS SUMMARY | ~2019-01-26 | XMS | Encounter Summary ---
Demographics + + + | Address | [address] | | | [place] [address] | + + + | Home Phone | | + + + | Preferred Language | Unknown | + + + | Marital Status | | + + + | Religion Affiliation | NON | + + + [...] [place], [place] | | | | | [address] | | + + + + + Care Team Providers + +------+ + | Care Liquified Natural Gas Specialist Name | Role | Phone | + +------+ + PCP | Unavailable | + +------+ + Encounter Details +--------+ + + + + | Date | Type | Department | Care Team | Description | +--------+ + + + + | 02/15/ | Procedure - | | Documentation, | [...] + + | TEACHING PHYSICIAN | | 02/15/2006 | | | + +--------+ + + + documented in this encounter Visit Diagnoses Not on filedocumented in this encounter"
--- OUTSIDE RECORDS SUMMARY | ~2019-01-26 | XMS | Encounter Summary ---
Demographics + + + | Address | [address] | | | [place] [address] | + + + | Home Phone [...] [place], [place] | | | | | [address] | | + + + + + Care Team Providers + +------+ + | Care Stock Cutter Name | Role | Phone | + +------+ + PCP | Unavailable | + +------+ + Encounter Details +--------+ + + + + | Date | Type | Department | Care Team | Description | +--------+ + + + + | 03/05/ | Respiratory | | Other, Faculty | | | 2005 | Therapy | | [phone] | | +--------+ + + + + [...] [facility] | [address] | [place], [place] | | | DIAGNOSTICS - | [address] | [phone] | | | PULMONARY FUNCTION | | | | + + + + + documented in this encounter Visit Diagnoses Not on filedocumented in this encounter"
--- OUTSIDE RECORDS SUMMARY | ~2019-01-26 | XMS | Encounter Summary ---
Demographics + + + | Address | [address] | | | [place] [address] | + + + | Home Phone [...] [place], [place] | | | | | [address] | | + + + + + Care Team Providers + +------+ + | Care Line Servicer Name | Role | Phone | + +------+ + PCP | Unavailable | + +------+ + Encounter Details +--------+ + + + + | Date | Type | Department | Care Team | Description | +--------+ + + + + | 03/11/ | Respiratory | | Other, Faculty | | | 2005 | Therapy | | [phone] | | +--------+ + + + + [...] | | | | | Y | MONORAIL OPERATOR | | | | + + [...] [facility] | [address] | [place], [place] | | | DIAGNOSTICS - | [address] | [address] | | | PULMONARY FUNCTION | | | | + + + + + documented in this encounter Visit Diagnoses Not on filedocumented in this encounter"
--- OUTSIDE RECORDS SUMMARY | ~2019-01-26 | XMS | Encounter Summary ---
Demographics + + + | Address | [address] | | | [place] [address] | + + + | Home Phone [...] [place], [place] | | | | | [address] | | + + + + + Care Team Providers + +------+ + | Care Judo Teacher Name | Role | Phone | + +------+ + PCP | Unavailable | + +------+ + Encounter Details +--------+ + + + + | Date | Type | Department | Care Team | Description | +--------+ + + + + | 03/01/ | Respiratory | | Other, Faculty | | | 2005 | Therapy | | [phone] | | +--------+ + + + + [...] | | GAS/HUMIDIT | OXYGEN. Hayley Hinton AGENCY CASHIER | | | | | Y |Hayley Hinton AGENCY CASHIER | | | | + + + [...] [facility] | [address] | [place], [place] | | | DIAGNOSTICS - | [address] | [address] | | | PULMONARY FUNCTION | | | | + + + + + documented in this encounter Visit Diagnoses Not on filedocumented in this encounter"
--- OUTSIDE RECORDS SUMMARY | ~2019-01-26 | XMS | Encounter Summary ---
Demographics + + + | Address | [address] | | | [place] [address] | + + + | Home Phone [...] [place], [place] | | | | | [address] | | + + + + + Care Team Providers + +------+ + | Care Shed Boss Name | Role | Phone | + +------+ + PCP | Unavailable | + +------+ + Encounter Details +--------+ + + + + | Date | Type | Department | Care Team | Description | +--------+ + + + + | 03/16/ | Respiratory | | Other, Faculty | | | 2005 | Therapy | | [phone] | | +--------+ + + + + [...] + + + | [facility] | [address] | [place] | | | DIAGNOSTICS - | [address] | [address] | | | PULMONARY FUNCTION | | | | + + + + + documented in this encounter Visit Diagnoses Not on filedocumented in this encounter"
--- OUTSIDE RECORDS SUMMARY | ~2019-01-26 | XMS | Encounter Summary ---
Demographics + + + | Address | [address] | | | [place] [address] | + + + | Home Phone | | + + + | Preferred Language | Unknown | + + + | Marital Status | | + + + | [employer] Affiliation | NON | + + + [...] [place], [place] | | | | | [address] | | + + + + + Care Team Providers + +------+ + | Care Marketing Operations Assistant Name | Role | Phone | + +------+ + PCP | Unavailable | + +------+ + Encounter Details +--------+ + + + + | Date | Type | Department | Care Team | Description | +--------+ + + + + | 03/04/ | Respiratory | | Other, Faculty | | | 2005 | Therapy | | [phone] | | +--------+ + + + + [...] this | | TREATMENTS | e | 12:30 PM | | procedure are in the | | | | PDT | | results section. | + +--------+ + + + documented in this encounter Results [facility] TRE[facility] (03/04/2006 12:30 PM PDT) + + + + + [...] | | | | | YELLOW SPUTUM. MODERATE | | | | | | IMPROVEMENTSAFTER | | | | | | TREATMENT Gabrielle Mac, | | | | | | BONDERITE OPERATOR | | | | + + [...] [facility] | [address] | [place], [place] | | | DIAGNOSTICS - | [place] | [phone] | | | PULMONARY FUNCTION | | | | + + + + + documented in this encounter Visit Diagnoses Not on filedocumented in this encounter"
--- OUTSIDE RECORDS SUMMARY | ~2019-01-26 | XMS | Encounter Summary ---
Demographics + + + | Address | [address] | | | [place] [address] | + + + | Home Phone | | + + + | Preferred Language | Unknown | + + + | Marital Status | | + + + | Evangelical Affiliation | NON | + + + [...] [place], [place] | | | | | [address] | | + + + + + Care Team Providers + +------+ + | Care Weatherization Administrator Name | Role | Phone | + +------+ + PCP | Unavailable | + +------+ + Encounter Details +--------+ + + + + | Date | Type | Department | Care Team | Description | +--------+ + + + + | 03/15/ | Respiratory | | Other, Faculty | | | 2005 | Therapy | | [phone] | | +--------+ + + + + [...] for this | | | e | 5:43 AM | | procedure are in the | | | | PDT | | results section. | + +--------+ + + + documented in this encounter Results MEDICAL GAS/HUMIDITY (03/15/2006 5:43 AM PDT) + + + + + + | Component | Value | Ref Range | Performed | Pathologist | | | | | At | Signature | + + + + + + | [facility] | HEATED HUMIDITY AT 24 % | | | | | GAS/HUMIDIT | OXYGEN. DYLAN JacobsonP | | | | | Y |DYLAN JacobsonP | | | | + + + [...] [facility] | [address] | [place], [place] | | | DIAGNOSTICS - | [address] | [address] | | | PULMONARY FUNCTION | | | | + + + + + documented in this encounter Visit Diagnoses Not on filedocumented in this encounter"
--- OUTSIDE RECORDS SUMMARY | ~2019-01-26 | XMS | Encounter Summary ---
Demographics + + + | Address | [address] | | | [place] [address] | + + + | Home Phone [...] [place], [place] | | | | | [address] | | + + + + + Care Team Providers + +------+ + | Care Engagement Mgr Name | Role | Phone | + +------+ + PCP | Unavailable | + +------+ + Encounter Details +--------+ + + + + | Date | Type | Department | Care Team | Description | +--------+ + + + + | 03/11/ | Respiratory | | Other, Faculty | | | 2005 | Therapy | | [phone] | | +--------+ + + + + [...] [facility] | [address] | [place], [place] | | | DIAGNOSTICS - | [address] | [address] | | | PULMONARY FUNCTION | | | | + + + + + documented in this encounter Visit Diagnoses Not on filedocumented in this encounter"
--- OUTSIDE RECORDS SUMMARY | ~2019-01-26 | XMS | Encounter Summary ---
Demographics + + + | Address | [address] | | | [place] [address] | + + + | Home Phone [...] [place], [place] | | | | | [address] | | + + + + + Care Team Providers + +------+ + | Care Correctional Security Officer Name | Role | Phone | + +------+ + PCP | Unavailable | + +------+ + Encounter Details +--------+ + + + + | Date | Type | Department | Care Team | Description | +--------+ + + + + | 03/02/ | Respiratory | | Other, Faculty | | | 2005 | Therapy | | [phone] | | +--------+ + + + + [...] [facility] | [address] | [place], [place] | | | DIAGNOSTICS - | [address] | [address] | | | PULMONARY FUNCTION | | | | + + + + + documented in this encounter Visit Diagnoses Not on filedocumented in this encounter"
--- OUTSIDE RECORDS SUMMARY | ~2019-01-26 | XMS | Encounter Summary ---
Demographics + + + | Address | [address] | | | [place] [address] | + + + | Home Phone | | + + + | Preferred Language | Unknown | + + + | Marital Status | | + + + | Oriental Orthodox Affiliation | NON | + + [...] [place], [place] | | | | | [address] | | + + + + + Care Team Providers + +------+ + | Care Damage Appraiser Name | Role | Phone | + +------+ + PCP | Unavailable | + +------+ + Encounter Details +--------+ + + + + | Date | Type | Department | Care Team | Description | +--------+ + + + + | 03/02/ | Respiratory | | Other, Faculty | | | 2005 | Therapy | | [phone] | | +--------+ + + + + [...] | | | | | Y | ELECTRIC FAN ASSEMBLER | | | | + + + [...] | DIAGNOSTICS - | [address] | [address] | | | PULMONARY FUNCTION | | | | + + + + + documented in this encounter Visit Diagnoses Not on filedocumented in this encounter"
--- OUTSIDE RECORDS SUMMARY | ~2019-01-26 | XMS | Encounter Summary ---
Demographics + + + | Address | [address] | | | [place] [address] | + + + | Home Phone [...] [place], [place] | | | | | [address] | | + + + + + Care Team Providers + +------+ + | Care Industrial Mechanic Name | Role | Phone | + +------+ + PCP | Unavailable | + +------+ + Encounter Details +--------+ + + + + | Date | Type | Department | Care Team | Description | +--------+ + + + + | 03/18/ | Respiratory | | Other, Faculty | | | 2005 | Therapy | | [phone] | | +--------+ + + + + [...] | | | | | Y | VOICE SYSTEMS ENGINEER | | | | + + + [...] [facility] | [address] | [place] | | | DIAGNOSTICS - | [address] | [address] | | | PULMONARY FUNCTION | | | | + + + + + documented in this encounter Visit Diagnoses Not on filedocumented in this encounter"
--- OUTSIDE RECORDS SUMMARY | ~2019-01-26 | XMS | Encounter Summary ---
Demographics + + + | Address | [address] | | | [place] [address] | + + + | Home Phone [...] [place], [place] | | | | | [address] | | + + + + + Care Team Providers + +------+ + | Care Employee Benefits Director Name | Role | Phone | [...] | Transcriptions | + + | Interface, Paid Search Analyst In - 03/16/2006 2:06 AM PDT | | [id number] | | [id number] ASHLEY Peck [id number] | | | | Date: 02/15/2006 | [...] De La Garza M.D., F.A.C.S. | | point of care technician @ [facility] [employer] | | | | SHARA / HS | | [id number] / [id number] / [id number] / [phone] | | | | | | E: 02/28/2006 vita | | | | Electronically signed by Thai De La Garza 03-15-2006 05:35:16 PM | + + documented in this encounter Visit Diagnoses Not on filedocumented in this encounter"
--- OUTSIDE RECORDS SUMMARY | ~2019-01-26 | XMS | Encounter Summary ---
Demographics + + + | Address | [address] | | | [place] [address] | + + + | Home Phone [...] [place], [place] | | | | | [address] | | + + + + + Care Team Providers + +------+ + | Care Paper Folder Name | Role | Phone | + +------+ + PCP | Unavailable | + +------+ + Encounter Details +--------+ + + + + | Date | Type | Department | Care Team | Description | +--------+ + + + + | 03/13/ | Respiratory | | Other, Faculty | | | 2005 | Therapy | | [phone] | | +--------+ + + + + [...] | | | | GAS/HUMIDIT | OXYGEN. Viriidana Yu CYBER FORENSICS ANALYST | | | | | Y |Viridiana Yu CYBER FORENSICS ANALYST | | | | + + [...] [facility] | [address] | [place], [place] | | | DIAGNOSTICS - | [address] | [address] | | | PULMONARY FUNCTION | | | | + + + + + documented in this encounter Visit Diagnoses Not on filedocumented in this encounter"
--- OUTSIDE RECORDS SUMMARY | ~2019-01-26 | XMS | Encounter Summary ---
Demographics + + + | Address | [address] [facility] [facility] | | | [place] [address] | + + + | Home Phone [...] [place], [place] | | | | | [address] | | + + + + + Care Team Providers + +------+ + | Care Senior Account Clerk Name | Role | Phone | + +------+ + PCP | Unavailable | + +------+ + Encounter Details +--------+ + + + + | Date | Type | Department | Care Team | Description | +--------+ + + + + | 03/05/ | Respiratory | | Other, Faculty | | | 2005 | Therapy | | [phone] | | +--------+ + + + + [...] | | | | | | Alms, JUNIOR MECHANICAL ENGINEER | | | | + + [...] + + + | [facility] | [address] | [place] | | | DIAGNOSTICS - | [address] | [address] | | | PULMONARY FUNCTION | | | | + + + + + documented in this encounter Visit Diagnoses Not on filedocumented in this encounter"
--- OUTSIDE RECORDS SUMMARY | ~2019-01-26 | XMS | Encounter Summary ---
Demographics + + + | Address | [address] [facility] [address] | | | [place] [address] | + + + | Home Phone [...] [place], [place] | | | | | [address] | | + + + + + Care Team Providers + +------+ + | Care Electronic Lab Technician Name | Role | Phone | [...]
--- OUTSIDE RECORDS SUMMARY | ~2019-01-26 | XMS | Encounter Summary ---
Demographics + + + | Address | [address] | | | [place] [address] | + + + | Home Phone [...] [place], [place] | | | | | [address] | | + + + + + Care Team Providers + +------+ + | Care Arts Therapist Name | Role | Phone | + +------+ + PCP | Unavailable | + +------+ + Encounter Details +--------+ + + + + | Date | Type | Department | Care Team | Description | +--------+ + + + + | 02/28/ | Respiratory | | Other, Faculty | | | 2005 | Therapy | | [phone] | | +--------+ + + + + [...] [facility] | [address] | [place], [place] | | | DIAGNOSTICS - | [address] | [address] | | | PULMONARY FUNCTION | | | | + + + + + documented in this encounter Visit Diagnoses Not on filedocumented in this encounter"
--- OUTSIDE RECORDS SUMMARY | ~2019-01-26 | XMS | Encounter Summary ---
Demographics + + + | Address | [address] [facility] [address] | | | [place] [address] | + + + | Home Phone [...] [place], [place] | | | | | [address] | | + + + + + Care Team Providers + +------+ + | Care Printer'S Assistant Name | Role | Phone | + +------+ + PCP | Unavailable | + +------+ + Encounter Details +--------+ + + + + | Date | Type | Department | Care Team | Description | +--------+ + + + + | 03/18/ | Respiratory | | Other, Faculty | | | 2005 | Therapy | | [phone] | | +--------+ + + + + [...] for this | | | e | 10:10 AM | | procedure are in the | | | | PDT | | results section. | + +--------+ + + + documented in this encounter Results MEDICAL GAS/HUMIDITY (03/18/2006 10:10 AM PDT) + + + + + + | Component | Value | Ref Range | Performed | Pathologist | | | | | At | Signature | + + + + + + | [facility] | OXYGEN OR HUMIDITY ON | | | | | GAS/HUMIDIT | LABY. Andry Hylton, | | | | | Y | MAINTENANCE DEPARTMENT TECHNICIAN | | | | + + [...] [facility] | [address] | [place] | | | DIAGNOSTICS - | [address] | [address] | | | PULMONARY FUNCTION | | | | + + + + + documented in this encounter Visit Diagnoses Not on filedocumented in this encounter"
--- OUTSIDE RECORDS SUMMARY | ~2019-01-26 | XMS | Encounter Summary ---
Demographics + + + | Address | [address] | | | [place] [address] | + + + | Home Phone | | + + + | Preferred Language | Unknown | + + + | Marital Status | | + + + | Jainism Affiliation | NON | + + + | Race | White | + + + | Ethnic Group | Not or | + + + Author + + + | Author | [facility] | + + + | Organization | [facility] | + + + | Address | Unknown | + + + | Phone | Unavailable | + + + Support + + + + + | Name | Relationship | Address | Phone | + + + + + | Yanni Antoine | ECON | [address] | | | | | [place], [place] | | | | | [address] | | + + + + + Care Team Providers + +------+ + | Care Shipping Track Supervisor Name | Role | Phone | + +------+ + PCP | Unavailable | + +------+ + Encounter Details +--------+ + + + + | Date | Type | Department | Care Team | Description | +--------+ + + + + | 02/10/ | ED Progress | [facility] | Report, Emergency | ED Progress Note | | 2006 | | MEDICINE | Services | | | | Note-Transc | | | | | | ribed | | | | +--------+ + + [...]
--- OUTSIDE RECORDS SUMMARY | ~2019-01-26 | XMS | Encounter Summary ---
Demographics + + + | Address | [address] | | | [place] [address] | + + + | Home Phone [...] [place], [place] | | | | | [address] | | + + + + + Care Team Providers + +------+ + | Care Flange Turner Name | Role | Phone | + +------+ + PCP | Unavailable | + +------+ + Encounter Details +--------+ + + + + | Date | Type | Department | Care Team | Description | +--------+ + + + + | 03/08/ | Respiratory | | Other, Faculty | | | 2005 | Therapy | | [phone] | | +--------+ + + + + [...] [facility] | [address] | [place], [place] | | | DIAGNOSTICS - | [address] | [address] | | | PULMONARY FUNCTION | | | | + + + + + documented in this encounter Visit Diagnoses Not on filedocumented in this encounter"
--- OUTSIDE RECORDS SUMMARY | ~2019-01-26 | XMS | Encounter Summary ---
Demographics + + + | Address | [address] [facility] [address] [facility] | | | [place] [address] | + + + | Home Phone [...] [place], [place] | | | | | [address] | | + + + + + Care Team Providers + +------+ + | Care Catia Designer Name | Role | Phone | + +------+ + PCP | Unavailable | + +------+ + Encounter Details +--------+ + + + + | Date | Type | Department | Care Team | Description | +--------+ + + + + | 03/12/ | Respiratory | | Other, Faculty | | | 2005 | Therapy | | [phone] | | +--------+ + + + + [...] | | | | | Ángel Combs, STEAM PRESS OPERATOR | | | | + + [...] [facility] | [address] | [place], [place] | | | DIAGNOSTICS - | [address] | [address] | | | PULMONARY FUNCTION | | | | + + + + + documented in this encounter Visit Diagnoses Not on filedocumented in this encounter"
--- OUTSIDE RECORDS SUMMARY | ~2019-01-26 | XMS | Encounter Summary ---
Demographics + + + | Address | [address] [facility] [facility] | | | [place] [address] | + + + | Home Phone [...] [place], [place] | | | | | [address] | | + + + + + Care Team Providers + +------+ + | Care Trimming Department Blocker Name | Role | Phone | + +------+ + PCP | Unavailable | + +------+ + Encounter Details +--------+ + + + + | Date | Type | Department | Care Team | Description | +--------+ + + + + | 03/03/ | Respiratory | | Other, Faculty | | | 2005 | Therapy | | [phone] | | +--------+ + + + + [...] [facility] | [address] | [place], [place] | | | DIAGNOSTICS - | [address] | [address] | | | PULMONARY FUNCTION | | | | + + + + + documented in this encounter Visit Diagnoses Not on filedocumented in this encounter"
--- OUTSIDE RECORDS SUMMARY | ~2019-01-26 | XMS | Encounter Summary ---
Demographics + + + | Address | [address] [facility] | | | [place] [address] | + + + | Home Phone [...] [place], [place] | | | | | [address] | | + + + + + Care Team Providers + +------+ + | Care Gospel Worker Name | Role | Phone | + +------+ + PCP | Unavailable | + +------+ + Encounter Details +--------+ + + + + | Date | Type | Department | Care Team | Description | +--------+ + + + + | 02/19/ | Respiratory | | Other, Faculty | | | 2005 | Therapy | | [phone] | | +--------+ + + + + [...] | | | | | Y | CERAMIC TILER | | | | + + + [...] | DIAGNOSTICS - | [address] | [address] | | | PULMONARY FUNCTION | | | | + + + + + documented in this encounter Visit Diagnoses Not on filedocumented in this encounter"
--- OUTSIDE RECORDS SUMMARY | ~2019-01-26 | XMS | Encounter Summary ---
Demographics + + + | Address | [address] | | | [place] [address] | + + + | Home Phone [...] [place], [place] | | | | | [address] | | + + + + + Care Team Providers + +------+ + | Care Water Treatment Plant Supervisor Name | Role | Phone | + +------+ + PCP | Unavailable | + +------+ + Encounter Details +--------+ + + + + | Date | Type | Department | Care Team | Description | +--------+ + + + + | 03/01/ | Respiratory | | Other, Faculty | | | 2005 | Therapy | | [phone] | | +--------+ + + + + [...] Rothman, | | | | | | SUBSTATION DESIGN DRAFTSPERSON | | | | + + + [...] + + + | [facility] | [address] | [place], [place] | | | DIAGNOSTICS - | [address] | [address] | | | PULMONARY FUNCTION | | | | + + + + + documented in this encounter Visit Diagnoses Not on filedocumented in this encounter"
--- OUTSIDE RECORDS SUMMARY | ~2019-01-26 | XMS | Encounter Summary ---
Demographics + + + | Address | [address] | | | [place] [address] | + + + | Home Phone | | + + + | Preferred Language | Unknown | + + + | Marital Status | | + + + | Methodist Affiliation | NON | + + + | Race | White | + + + | Ethnic Group | Not or | + + + Author + + + | Author | [facility] | + + + | Organization | [facility] | + + + | Address | Unknown | + + + | Phone | Unavailable | + + + Support + + + + + | Name | Relationship | Address | Phone | + + + + + | Yanni Ramirez | ECON | [address] | | | | | [place], [place] | | | | | [address] | | + + + + + Care Team Providers + +------+ + | Care Adjunct Faculty Mathematics Department Name | Role | Phone | + [...] [facility] | | | | | | [facility] | | | | | | [place], [place] | | | | | | [address] | | | +--------+ + + + [...] | | | Patient: MIGUEL A RAMIREZ ShipEarly Rec: [id number] Sex M Bdate: 1965 | | Date/Time Data | | Entered Into [facility] | | Anesth PostOp | | Surgery Date [id number] 02/18/06 10:10 | | Anesthesiologist CHENTE GOVEA 02/18/06 10:10 | | Resident Anesthesiolog RENITA ANDREWS 02/18/06 10:10 | | | + + documented in this encounter Visit Diagnoses Not on filedocumented in this encounter"
--- OUTSIDE RECORDS SUMMARY | ~2019-01-26 | XMS | Encounter Summary ---
Demographics + + + | Address | [address] | | | [place] [address] | + + + | Home Phone [...] [place], [place] | | | | | [address] | | + + + + + Care Team Providers + +------+ + | Care Chrome Plater Helper Name | Role | Phone | + +------+ + PCP | Unavailable | + +------+ + Encounter Details +--------+ + + + + | Date | Type | Department | Care Team | Description | +--------+ + + + + | 02/28/ | Respiratory | | Other, Faculty | | | 2005 | Therapy | | [phone] | | +--------+ + + + + [...] + + + | [facility] | [address] | [place], [place] | | | DIAGNOSTICS - | [address] | [address] | | | PULMONARY FUNCTION | | | | + + + + + documented in this encounter Visit Diagnoses Not on filedocumented in this encounter"
--- OUTSIDE RECORDS SUMMARY | ~2019-01-26 | XMS | Encounter Summary ---
Demographics + + + | Address | [address] [facility] | | | [place] [address] | + + + | Home Phone | | + + + | Preferred Language | Unknown | + + + | Marital Status | | + + + | Scientology Affiliation | NON | + + + [...] [place], [place] | | | | | [address] | | + + + + + Care Team Providers + +------+ + | Care Vamp Strap Ironer Name | Role | Phone | + +------+ + PCP | Unavailable | + +------+ + Encounter Details +--------+ + + + + | Date | Type | Department | Care Team | Description | +--------+ + + + + | 03/07/ | Respiratory | | Other, Faculty | | | 2005 | Therapy | | [phone] | | +--------+ + + + + [...] | DIAGNOSTICS - | [address] | [address] | | | PULMONARY FUNCTION | | | | + + + + + documented in this encounter Visit Diagnoses Not on filedocumented in this encounter"
--- OUTSIDE RECORDS SUMMARY | ~2019-01-26 | XMS | Encounter Summary ---
Demographics + + + | Address | [address] | | | [place] [address] | + + + | Home Phone [...] [place], [place] | | | | | [address] | | + + + + + Care Team Providers + +------+ + | Care Methods Specialist Engineer Name | Role | Phone | + +------+ + PCP | Unavailable | + +------+ + Encounter Details +--------+ + + + + | Date | Type | Department | Care Team | Description | +--------+ + + + + | 03/06/ | Respiratory | | Other, Faculty | | | 2005 | Therapy | | [phone] | | +--------+ + + + + [...] Bazan, | | | | | | MANAGER ASSET | | | | + + + [...] [facility] | [address] | [place] | | | DIAGNOSTICS - | [address] | [address] | | | PULMONARY FUNCTION | | | | + + + + + documented in this encounter Visit Diagnoses Not on filedocumented in this encounter"
--- OUTSIDE RECORDS SUMMARY | ~2019-01-26 | XMS | Encounter Summary ---
Demographics + + + | Address | [address] [facility] [facility] [facility] | | | [place] [address] | + + + | Home Phone [...] [place], [place] | | | | | [address] | | + + + + + Care Team Providers + +------+ + | Care Boat Engine Mechanic Name | Role | Phone | + +------+ + PCP | Unavailable | + +------+ + Encounter Details +--------+ + + + + | Date | Type | Department | Care Team | Description | +--------+ + + + + | 03/15/ | Respiratory | | Other, Faculty | | | 2005 | Therapy | | [phone] | | +--------+ + + + + [...] [facility] | [address] | [place], [place] | | | DIAGNOSTICS - | [address] | [address] | | | PULMONARY FUNCTION | | | | + + + + + documented in this encounter Visit Diagnoses Not on filedocumented in this encounter"
--- OUTSIDE RECORDS SUMMARY | ~2019-01-26 | XMS | Encounter Summary ---
Demographics + + + | Address | [address] [facility] | | | [place] [address] | + + + | Home Phone [...] [place], [place] | | | | | [address] | | + + + + + Care Team Providers + +------+ + | Care Director Of Database Marketing Name | Role | Phone | + +------+ + PCP | Unavailable | + +------+ + Encounter Details +--------+ + + + + | Date | Type | Department | Care Team | Description | +--------+ + + + + | 03/19/ | Respiratory | | Other, Faculty | | | 2005 | Therapy | | [phone] | | +--------+ + + + + [...] for this | | | e | 1:32 AM | | procedure are in the | | | | PDT | | results section. | + +--------+ + + + documented in this encounter Results MEDICAL GAS/HUMIDITY (03/19/2006 1:32 AM PDT) + + + + + + | Component | Value | Ref Range | Performed | Pathologist | | | | | At | Signature | + + + + + + | [facility] | OXYGEN OR HUMIDITY ON | | | | | GAS/HUMIDIT | STANDBY. Harsha Trevino RCP | | | | | Y |DYLAN LancasterP | | | | + + + [...] [facility] | [address] | [place], [place] | | | DIAGNOSTICS - | [address] | [address] | | | PULMONARY FUNCTION | | | | + + + + + documented in this encounter Visit Diagnoses Not on filedocumented in this encounter"
--- OUTSIDE RECORDS SUMMARY | ~2019-01-26 | XMS | Encounter Summary ---
Demographics + + + | Address | [address] | | | [place] [address] | + + + | Home Phone [...] [place], [place] | | | | | [address] | | + + + + + Care Team Providers + +------+ + | Care Online Advertising Manager Name | Role | Phone | + +------+ + PCP | Unavailable | + +------+ + Encounter Details +--------+ + + + + | Date | Type | Department | Care Team | Description | +--------+ + + + + | 02/18/ | Results | | Other, Faculty | | | 2006 | Only | | [phone] | | +--------+ + + + + [...] | | + +---------+ + + | [facility] DEPARTMENT OF | | | | | RADIOLOGY | | | | + +---------+ + + documented in this encounter Visit Diagnoses Not on filedocumented in this encounter"
--- OUTSIDE RECORDS SUMMARY | ~2019-01-26 | XMS | Encounter Summary ---
Demographics + + + | Address | [address] [facility] | | | [place] [address] | + + + | Home Phone [...] [place], [place] | | | | | [address] | | + + + + + Care Team Providers + +------+ + | Care Motor Coach Bus Driver Name | Role | Phone | + +------+ + PCP | Unavailable | + +------+ + Encounter Details +--------+ + + + + | Date | Type | Department | Care Team | Description | +--------+ + + + + | 02/18/ | Respiratory | | Other, Faculty | | | 2005 | Therapy | | [phone] | | +--------+ + + + + [...] | | | | | Y | INSURANCE PRODUCER | | | | + + + [...] | DIAGNOSTICS - | [address] | [address] | | | PULMONARY FUNCTION | | | | + + + + + documented in this encounter Visit Diagnoses Not on filedocumented in this encounter"
--- OUTSIDE RECORDS SUMMARY | ~2019-01-26 | XMS | Encounter Summary ---
Demographics + + + | Address | [address] | | | [place] [address] | + + + | Home Phone [...] [place], [place] | | | | | [address] | | + + + + + Care Team Providers + +------+ + | Care Utility Engineer Name | Role | Phone | + +------+ + PCP | Unavailable | + +------+ + Encounter Details +--------+ + + + + | Date | Type | Department | Care Team | Description | +--------+ + + + + | 02/27/ | Respiratory | | Other, Faculty | | | 2005 | Therapy | | [phone] | | +--------+ + + + + [...] [facility] | [address] | [place], [place] | | | DIAGNOSTICS - | [address] | [address] | | | PULMONARY FUNCTION | | | | + + + + + documented in this encounter Visit Diagnoses Not on filedocumented in this encounter"
--- OUTSIDE RECORDS SUMMARY | ~2019-01-26 | XMS | Encounter Summary ---
Demographics + + + | Address | [address] [facility] | | | [place] [address] | + + + | Home Phone [...] [place], [place] | | | | | [address] | | + + + + + Care Team Providers + +------+ + | Care Car Jockey Name | Role | Phone | + +------+ + PCP | Unavailable | + +------+ + Encounter Details +--------+ + + + + | Date | Type | Department | Care Team | Description | +--------+ + + + + | 03/03/ | Respiratory | | Other, Faculty | | | 2005 | Therapy | | [phone] | | +--------+ + + + + [...] | | | | | Glenn Carroll HIGH SCHOOL TUTOR | | | | + + + [...] | DIAGNOSTICS - | [address] | [address] | | | PULMONARY FUNCTION | | | | + + + + + documented in this encounter Visit Diagnoses Not on filedocumented in this encounter"
--- OUTSIDE RECORDS SUMMARY | ~2019-01-26 | XMS | Encounter Summary ---
Demographics + + + | Address | [address] [facility] | | | [place] [address] | + + + | Home Phone [...] [place], [place] | | | | | [address] | | + + + + + Care Team Providers + +------+ + | Care Pension Consultant Name | Role | Phone | + +------+ + PCP | Unavailable | + +------+ + Encounter Details +--------+ + + + + | Date | Type | Department | Care Team | Description | +--------+ + + + + | 03/04/ | Respiratory | | Other, Faculty | | | 2005 | Therapy | | [phone] | | +--------+ + + + + [...] + + + | [facility] | [address] | [place], [place] | | | DIAGNOSTICS - | [address] | [address] | | | PULMONARY FUNCTION | | | | + + + + + documented in this encounter Visit Diagnoses Not on filedocumented in this encounter"
--- OUTSIDE RECORDS SUMMARY | ~2019-01-26 | XMS | Encounter Summary ---
Demographics + + + | Address | [address] [facility] | | | [place] [address] | + + + | Home Phone [...] [place], [place] | | | | | [address] | | + + + + + Care Team Providers + +------+ + | Care Supervisor Glycerin Name | Role | Phone | + +------+ + PCP | Unavailable | + +------+ + Encounter Details +--------+ + + + + | Date | Type | Department | Care Team | Description | +--------+ + + + + | 02/24/ | Respiratory | | Other, Faculty | | | 2005 | Therapy | | [phone] | | +--------+ + + + + [...] + + | DIAGNOSTICS | Routin | 02/24/2006 | | Results for this | | | e | 6:18 AM | | procedure are in the | | | | PDT | | results section. | + +--------+ + + + documented in this encounter Results DIAGNOSTICS (02/24/2006 6:18 AM PDT) + + + + + + | Component | Value | Ref Range | Performed | Pathologist | | | | | At | Signature | + + + + + + | [facility] | CONTINUOUS PULSE | | | | | DIAGNOSTICS | OXIMETRY IN USE. Madeline | | | | | | MARLENE Whiting | | | | + + + [...] | + + + + + | [facility] | [address] | [place], [place] | | | DIAGNOSTICS - | [address] | [address] | | | PULMONARY FUNCTION | | | | + + + + + documented in this encounter Visit Diagnoses Not on filedocumented in this encounter"
--- OUTSIDE RECORDS SUMMARY | ~2019-01-26 | XMS | Encounter Summary ---
Demographics + + + | Address | [address] [facility] | | | [place] [address] | + + + | Home Phone [...] [place], [place] | | | | | [address] | | + + + + + Care Team Providers + +------+ + | Care Teaching Young Name | Role | Phone | + +------+ + PCP | Unavailable | + +------+ + Encounter Details +--------+ + + + + | Date | Type | Department | Care Team | Description | +--------+ + + + + | 03/14/ | Respiratory | | Other, Faculty | | | 2005 | Therapy | | [phone] | | +--------+ + + + + [...] for this | | | e | 12:39 AM | | procedure are in the | | | | PDT | | results section. | + +--------+ + + + documented in this encounter Results MEDICAL GAS/HUMIDITY (03/14/2006 12:39 AM PDT) + + + + + + | Component | Value | Ref Range | Performed | Pathologist | | | | | At | Signature | + + + + + + | [facility] | HEATED HUMIDITY AT 24 % | | | | | GAS/HUMIDIT | OXYGEN. Viridiana Yu COMPRESSED GAS TESTER | | | | | Y |Viridiana Yu COMPRESSED GAS TESTER | | | | + + + [...] [facility] | [address] | [place], [place] | | | DIAGNOSTICS - | [address] | [address] | | | PULMONARY FUNCTION | | | | + + + + + documented in this encounter Visit Diagnoses Not on filedocumented in this encounter"
--- OUTSIDE RECORDS SUMMARY | ~2019-01-26 | XMS | Encounter Summary ---
Demographics + + + | Address | [address] [facility] | | | [place] [address] | + + + | Home Phone [...] [place], [place] | | | | | [address] | | + + + + + Care Team Providers + +------+ + | Care Allergy And Immunology Specialist Name | Role | Phone | + +------+ + PCP | Unavailable | + +------+ + Encounter Details +--------+ + + + + | Date | Type | Department | Care Team | Description | +--------+ + + + + | 03/08/ | Respiratory | | Other, Faculty | | | 2005 | Therapy | | [phone] | | +--------+ + + + + [...] | | | | Y | Elia JOURNALISM INTERN | | | | + + + [...] [facility] | [address] | [place], [place] | | | DIAGNOSTICS - | [address] | [address] | | | PULMONARY FUNCTION | | | | + + + + + documented in this encounter Visit Diagnoses Not on filedocumented in this encounter"
--- OUTSIDE RECORDS SUMMARY | ~2019-01-26 | XMS | Encounter Summary ---
Demographics + + + | Address | [address] [facility] | | | [place] [address] | + + + | Home Phone [...] [place], [place] | | | | | [address] | | + + + + + Care Team Providers + +------+ + | Care Slotter Operator Name | Role | Phone | + +------+ + PCP | Unavailable | + +------+ + Encounter Details +--------+ + + + + | Date | Type | Department | Care Team | Description | +--------+ + + + + | 03/04/ | Respiratory | | Other, Faculty | | | 2005 | Therapy | | [phone] | | +--------+ + + + + [...] Mac, | | | | | | ELECTRIC SWITCH TESTER | | | | + + [...] [facility] | [address] | [place], [place] | | | DIAGNOSTICS - | [address] | [address] | | | PULMONARY FUNCTION | | | | + + + + + documented in this encounter Visit Diagnoses Not on filedocumented in this encounter"
--- OUTSIDE RECORDS SUMMARY | ~2019-01-26 | XMS | Encounter Summary ---
Demographics + + + | Address | [address] [facility] | | | [place] [address] | + + + | Home Phone | | + + + | Preferred Language | Unknown | + + + | Marital Status | | + + + | Mormon Affiliation | NON | + + + [...] [place], [place] | | | | | [address] | | + + + + + Care Team Providers + +------+ + | Care Drug Clerk Name | Role | Phone | + +------+ + PCP | Unavailable | + +------+ + Encounter Details +--------+ + + + + | Date | Type | Department | Care Team | Description | +--------+ + + + + | 03/02/ | Respiratory | | Other, Faculty | | | 2005 | Therapy | | [phone] | | +--------+ + + + + [...] | | | Y | III, ENVIRONMENTAL HEALTH SAFETY MANAGER | | | | + + [...] [facility] | [address] | [place] | | | DIAGNOSTICS - | [address] | [address] | | | PULMONARY FUNCTION | | | | + + + + + documented in this encounter Visit Diagnoses Not on filedocumented in this encounter"
--- OUTSIDE RECORDS SUMMARY | ~2019-01-26 | XMS | Encounter Summary ---
Demographics + + + | Address | [address] [facility] | | | [place] [address] | + + + | Home Phone [...] [place], [place] | | | | | [address] | | + + + + + Care Team Providers + +------+ + | Care Hardscape Foreman Name | Role | Phone | + [...] as of this encounter Progress Notes Interface, Liquor Runner In - 02/19/2006 2:08 AM PDT [id number] ASHLEY Peck [id number] Clinic Date: 02/15/2006 Clinic: Operative Report Preoperative [...] procedure and in fact performed it. Thai DeL a Garza M.D., F.A.C.S. forensic structural engineer @ systems consultant Service [facility] / [id number] / [id number] / [id number] / [id number] documented i n this encounter Plan of Treatment Not on filedocumented as of this encounter Visit Diagnoses Not on filedocumented in this encounter"
--- OUTSIDE RECORDS SUMMARY | ~2019-01-26 | XMS | Encounter Summary ---
Demographics + + + | Address | [address] [facility] | | | [place] [address] | + + + | Home Phone [...] + + + | Author | [facility] | + + + | Organization | [facility] | + + + | Address | Unknown | + + + | Phone | Unavailable | + + + Support + + + + + | Name | Relationship | Address | Phone | + + + + + | Yanni Antoine | ECON | [address] | | | | | [place], [place] | | | | | [address] | | + + + + + Care Team Providers + +------+ + | Care Recruit Instructor Name | Role | Phone | [...]
--- OUTSIDE RECORDS SUMMARY | ~2019-01-26 | XMS | Encounter Summary ---
Demographics + + + | Address | [address] [facility] | | | [place] [address] | + + + | Home Phone [...] [place], [place] | | | | | [address] | | + + + + + Care Team Providers + +------+ + | Care Advertising Director Name | Role | Phone | + +------+ + PCP | Unavailable | + +------+ + Encounter Details +--------+ + + + + | Date | Type | Department | Care Team | Description | +--------+ + + + + | 03/04/ | Respiratory | | Other, Faculty | | | 2005 | Therapy | | [phone] | | +--------+ + + + + [...] + + + | [facility] | [address] | [place], [place] | | | DIAGNOSTICS - | [address] | [address] | | | PULMONARY FUNCTION | | | | + + + + + documented in this encounter Visit Diagnoses Not on filedocumented in this encounter"
--- OUTSIDE RECORDS SUMMARY | ~2019-01-26 | XMS | Encounter Summary ---
Demographics + + + | Address | [address] [facility] | | | [place] [address] | + + + | Home Phone [...] [place], [place] | | | | | [address] | | + + + + + Care Team Providers + +------+ + | Care Fur Tanner Name | Role | Phone | + +------+ + PCP | Unavailable | + +------+ + Encounter Details +--------+ + + + + | Date | Type | Department | Care Team | Description | +--------+ + + + + | 03/11/ | Respiratory | | Other, Faculty | | | 2005 | Therapy | | [phone] | | +--------+ + + + + [...] | | | | | Y | LOCKSTITCH SHOULDER JOINER | | | | + + + [...] [facility] | [address] | [place] | | | DIAGNOSTICS - | [address] | [address] | | | PULMONARY FUNCTION | | | | + + + + + documented in this encounter Visit Diagnoses Not on filedocumented in this encounter"
--- OUTSIDE RECORDS SUMMARY | ~2019-01-26 | XMS | Encounter Summary ---
Demographics + + + | Address | [address] [facility] | | | [place] [address] | + + + | Home Phone [...] [place], [place] | | | | | [address] | | + + + + + [...] | | 2005 | Therapy | | [phone] | | +--------+ + + + + [...] [facility] | [address] | [place], [place] | | | DIAGNOSTICS - | [address] | [address] | | | PULMONARY FUNCTION | | | | + + + + + documented in this encounter Visit Diagnoses Not on filedocumented in this encounter"
--- OUTSIDE RECORDS SUMMARY | ~2019-01-26 | XMS | Encounter Summary ---
Demographics + + + | Address | [address] [facility] | | | [place] [address] | + + + | Home Phone [...] [place], [place] | | | | | [address] | | + + + + + Care Team Providers + +------+ + | Care Office Worker Name | Role | Phone | [...] | Transcriptions | + + | Interface, Microbiology Quality Control Technician In - 03/16/2006 2:06 AM PDT | | [id number] | | [id number] ASHLEY Peck [id number] | | | | Date: 02/13/2006 | | | | Attending Surgeon: Thai De La Garza M.D., DeepthiCRamiroS. | | | | Data Analyst(s): Jazzmine Lozano MD | | | | [...] De La Garza M.D., F.A.C.S. | | surveillance sensor officer @ frame assembler Service | | | | SHARA / HS | | [id number] / [id number] / [id number] / | | | | | | E: 03/11/2006 ajm | | | | | | Electronically signed by Thai De La Garza 03-15-2006 05:35:06 PM | + + documented in this encounter Visit Diagnoses Not on filedocumented in this encounter"
--- OUTSIDE RECORDS SUMMARY | ~2019-01-26 | XMS | Encounter Summary ---
Demographics + + + | Address | [address] [facility] | | | [place] [address] | + + + | Home Phone [...] [place], [place] | | | | | [address] | | + + + + + Care Team Providers + +------+ + | Care Band Cutting Machine Operator Name | Role | Phone | + +------+ + PCP | Unavailable | + +------+ + Encounter Details +--------+ + + + + | Date | Type | Department | Care Team | Description | +--------+ + + + + | 02/24/ | Respiratory | | Other, Faculty | | | 2005 | Therapy | | [phone] | | +--------+ + + + + [...] [facility] | [address] | [place], [place] | | | DIAGNOSTICS - | [address] | [address] | | | PULMONARY FUNCTION | | | | + + + + + documented in this encounter Visit Diagnoses Not on filedocumented in this encounter"
--- OUTSIDE RECORDS SUMMARY | ~2019-01-26 | XMS | Encounter Summary ---
Demographics + + + | Address | [address] [facility] | | | [place] [address] | + + + | Home Phone [...] [place], [place] | | | | | [address] | | + + + + + Care Team Providers + +------+ + | Care Clinical Project Assistant Name | Role | Phone | + +------+ + PCP | Unavailable | + +------+ + Encounter Details +--------+ + + + + | Date | Type | Department | Care Team | Description | +--------+ + + + + | 02/20/ | Respiratory | | Other, Faculty | | | 2005 | Therapy | | [phone] | | +--------+ + + + + [...] | | | | | Y | STRANNER | | | | + + + [...] | DIAGNOSTICS - | [address] | [address] | | | PULMONARY FUNCTION | | | | + + + + + documented in this encounter Visit Diagnoses Not on filedocumented in this encounter"
--- OUTSIDE RECORDS SUMMARY | ~2019-01-26 | XMS | Encounter Summary ---
Demographics + + + | Address | [address] [facility] | | | [place] [address] | + + + | Home Phone [...] [place], [place] | | | | | [address] | | + + + + + Care Team Providers + +------+ + | Care Dispatcher Maintenance Name | Role | Phone | + +------+ + PCP | Unavailable | + +------+ + Encounter Details +--------+ + + + + | Date | Type | Department | Care Team | Description | +--------+ + + + + | 02/18/ | Results | | Other, Faculty | | | 2006 | Only | | [phone] | | +--------+ + + + + [...] | | + +---------+ + + | [facility] DEPARTMENT OF | | | | | RADIOLOGY | | | | + +---------+ + + documented in this encounter Visit Diagnoses Not on filedocumented in this encounter"
--- OUTSIDE RECORDS SUMMARY | ~2019-01-26 | XMS | Encounter Summary ---
Demographics + + + | Address | [address] [facility] | | | [place] [address] | + + + | Home Phone [...] [place], [place] | | | | | [address] | | + + + + + Care Team Providers + +------+ + | Care Strong Nitric Operator Name | Role | Phone | + +------+ + PCP | Unavailable | + +------+ + Encounter Details +--------+ + + + + | Date | Type | Department | Care Team | Description | +--------+ + + + + | 03/02/ | Respiratory | | Other, Faculty | | | 2005 | Therapy | | [phone] | | +--------+ + + + + [...] | | | | Y | III, ANDROID UI DEVELOPER | | | | + + + [...] [facility] | [address] | [place] | | | DIAGNOSTICS - | [address] | [address] | | | PULMONARY FUNCTION | | | | + + + + + documented in this encounter Visit Diagnoses Not on filedocumented in this encounter"
--- OUTSIDE RECORDS SUMMARY | ~2019-01-26 | XMS | Encounter Summary ---
Demographics + + + | Address | [address] [facility] | | | [place] [address] | + + + | Home Phone [...] [place], [place] | | | | | [address] | | + + + + + Care Team Providers + +------+ + | Care Home Care Chaplain Name | Role | Phone | + +------+ + PCP | Unavailable | + +------+ + Encounter Details +--------+ + + + + | Date | Type | Department | Care Team | Description | +--------+ + + + + | 03/10/ | Respiratory | | Other, Faculty | | | 2005 | Therapy | | [phone] | | +--------+ + + + + [...] | | | | | Y | NURSE HEALTHCARE MANAGER | | | | + + [...] | DIAGNOSTICS - | [address] | [address] | | | PULMONARY FUNCTION | | | | + + + + + documented in this encounter Visit Diagnoses Not on filedocumented in this encounter"
--- OUTSIDE RECORDS SUMMARY | ~2019-01-26 | XMS | Encounter Summary ---
Demographics + + + | Address | [address] [facility] | | | [place] [address] | + + + | Home Phone [...] [place], [place] | | | | | [address] | | + + + + + Care Team Providers + +------+ + | Care Loans Officer Name | Role | Phone | + +------+ + PCP | Unavailable | + +------+ + Encounter Details +--------+ + + + + | Date | Type | Department | Care Team | Description | +--------+ + + + + | 03/20/ | Respiratory | | Other, Faculty | | | 2005 | Therapy | | [phone] | | +--------+ + + + + [...] [facility] | [address] | [place], [place] | | | DIAGNOSTICS - | [address] | [address] | | | PULMONARY FUNCTION | | | | + + + + + documented in this encounter Visit Diagnoses Not on filedocumented in this encounter"
--- OUTSIDE RECORDS SUMMARY | ~2019-01-26 | XMS | Encounter Summary ---
Demographics + + + | Address | [address] [facility] | | | [place] [address] | + + + | Home Phone [...] [place], [place] | | | | | [address] | | + + + + + Care Team Providers + +------+ + | Care Recoater Name | Role | Phone | + +------+ + PCP | Unavailable | + +------+ + Encounter Details +--------+ + + + + | Date | Type | Department | Care Team | Description | +--------+ + + + + | 03/01/ | Respiratory | | Other, Faculty | | | 2005 | Therapy | | [phone] | | +--------+ + + + + [...] Hinton, | | | | | | RADIO INTERFERENCE INVESTIGATOR | | | | + + + [...] [facility] | [address] | [place], [place] | | | DIAGNOSTICS - | [address] | [address] | | | PULMONARY FUNCTION | | | | + + + + + documented in this encounter Visit Diagnoses Not on filedocumented in this encounter"
--- OUTSIDE RECORDS SUMMARY | ~2019-01-26 | XMS | Encounter Summary ---
Demographics + + + | Address | [address] [facility] | | | [place] [address] | + + + | Home Phone [...] [place], [place] | | | | | [address] | | + + + + + Care Team Providers + +------+ + | Care Osha Inspector Name | Role | Phone | + +------+ + PCP | Unavailable | + +------+ + Encounter Details +--------+ + + + + | Date | Type | Department | Care Team | Description | +--------+ + + + + | 03/04/ | Respiratory | | Other, Faculty | | | 2005 | Therapy | | [phone] | | +--------+ + + + + [...] [facility] | [address] | [place] [place] | | | DIAGNOSTICS - | [address] | [address] | | | PULMONARY FUNCTION | | | | + + + + + documented in this encounter Visit Diagnoses Not on filedocumented in this encounter"
--- OUTSIDE RECORDS SUMMARY | ~2019-01-26 | XMS | Encounter Summary ---
Demographics + + + | Address | [address] [facility] | | | [place] [address] | + + + | Home Phone [...] [place], [place] | | | | | [address] | | + + + + + Care Team Providers + +------+ + | Care Manager Army Name | Role | Phone | + +------+ + PCP | Unavailable | + +------+ + Encounter Details +--------+ + + + + | Date | Type | Department | Care Team | Description | +--------+ + + + + | 02/21/ | Respiratory | | Other, Faculty | | | 2005 | Therapy | | [phone] | | +--------+ + + + + [...] | | GAS/HUMIDIT | OXYGEN. Ángel Combs, JAI ALAI PLAYER | | | | | Y |Ángel Combs, JAI ALAI PLAYER | | | | + + + [...] [facility] | [address] | [place], [place] | | | DIAGNOSTICS - | [address] | [address] | | | PULMONARY FUNCTION | | | | + + + + + documented in this encounter Visit Diagnoses Not on filedocumented in this encounter"
--- OUTSIDE RECORDS SUMMARY | ~2019-01-26 | XMS | Encounter Summary ---
Demographics + + + | Address | [address] [facility] | | | [place] [address] | + + + | Home Phone [...] [place], [place] | | | | | [address] | | + + + + + Care Team Providers + +------+ + | Care Permaculture Contractor Name | Role | Phone | + +------+ + PCP | Unavailable | + +------+ + Encounter Details +--------+ + + + + | Date | Type | Department | Care Team | Description | +--------+ + + + + | 03/17/ | Respiratory | | Other, Faculty | | | 2005 | Therapy | | [phone] | | +--------+ + + + + [...] in this encounter Results MEDICAL GAS/HUMIDITY (03/17/2006 12:39 AM PDT) + + + + + + | Component | Value | Ref Range | Performed | Pathologist | | | | | At | Signature | + + + + + + | [facility] | HEATED HUMIDITY AT 24 % | | | | | GAS/HUMIDIT | AFIA. Irina Luo, | | | | | Y | MONKEY TRAINER | | | | + + [...] [facility] | [address] | [place] | | | DIAGNOSTICS - | [address] | [address] | | | PULMONARY FUNCTION | | | | + + + + + documented in this encounter Visit Diagnoses Not on filedocumented in this encounter"
--- OUTSIDE RECORDS SUMMARY | ~2019-01-26 | XMS | Encounter Summary ---
Demographics + + + | Address | [address] [facility] | | | [place] [address] | + + + | Home Phone [...] [place], [place] | | | | | [address] | | + + + + + Care Team Providers + +------+ + | Care Training Engineer Name | Role | Phone | + +------+ + PCP | Unavailable | + +------+ + Encounter Details +--------+ + + + + | Date | Type | Department | Care Team | Description | +--------+ + + + + | 02/28/ | Respiratory | | Other, Faculty | | | 2005 | Therapy | | [phone] | | +--------+ + + + + [...] | | | | | Noelle Rothman, SWING GRINDER | | | | + + [...] [facility] | [address] | [place], [place] | | | DIAGNOSTICS - | [address] | [address] | | | PULMONARY FUNCTION | | | | + + + + + documented in this encounter Visit Diagnoses Not on filedocumented in this encounter"
--- OUTSIDE RECORDS SUMMARY | ~2019-01-26 | XMS | Encounter Summary ---
Demographics + + + | Address | [address] [facility] | | | [place] [address] | + + + | Home Phone [...] [place], [place] | | | | | [address] | | + + + + + Care Team Providers + +------+ + | Care Solar Manufacturer'S Representative Name | Role | Phone | + +------+ + PCP | Unavailable | + +------+ + Encounter Details +--------+ + + + + | Date | Type | Department | Care Team | Description | +--------+ + + + + | 03/04/ | Respiratory | | Other, Faculty | | | 2005 | Therapy | | [phone] | | +--------+ + + + + [...] [facility] | [address] | [place] [place] | | | DIAGNOSTICS - | [address] | [address] | | | PULMONARY FUNCTION | | | | + + + + + documented in this encounter Visit Diagnoses Not on filedocumented in this encounter"
--- OUTSIDE RECORDS SUMMARY | ~2019-01-26 | XMS | Encounter Summary ---
Demographics + + + | Address | [address] [facility] | | | [place] [address] | + + + | Home Phone [...] [place], [place] | | | | | [address] | | + + + + + Care Team Providers + +------+ + | Care Pharmacoepidemiologist Name | Role | Phone | + +------+ + PCP | Unavailable | + +------+ + Encounter Details +--------+ + + + + | Date | Type | Department | Care Team | Description | +--------+ + + + + | 03/14/ | Respiratory | | Other, Faculty | | | 2005 | Therapy | | [phone] | | +--------+ + + + + [...] | | | | Y |Yung Boss, COMPOSITION WEATHERBOARD APPLIER | | | | + + + [...] [facility] | [address] | [place], [place] | | | DIAGNOSTICS - | [address] | [address] | | | PULMONARY FUNCTION | | | | + + + + + documented in this encounter Visit Diagnoses Not on filedocumented in this encounter"
--- OUTSIDE RECORDS SUMMARY | ~2019-01-26 | XMS | Encounter Summary ---
Demographics + + + | Address | [address] [facility] | | | [place] [address] | + + + | Home Phone [...] [place], [place] | | | | | [address] | | + + + + + Care Team Providers + +------+ + | Care Strike Out Machine Operator Name | Role | Phone | + +------+ + PCP | Unavailable | + +------+ + Encounter Details +--------+ + + + + | Date | Type | Department | Care Team | Description | +--------+ + + + + | 03/05/ | Respiratory | | Other, Faculty | | | 2005 | Therapy | | [phone] | | +--------+ + + + + [...] [facility] | [address] | [place], [place] | | | DIAGNOSTICS - | [address] | [address] | | | PULMONARY FUNCTION | | | | + + + + + documented in this encounter Visit Diagnoses Not on filedocumented in this encounter"
--- OUTSIDE RECORDS SUMMARY | ~2019-01-26 | XMS | Encounter Summary ---
Demographics + + + | Address | [address] | | | [place] [address] | + + + | Home Phone | | + + + | Preferred Language | Unknown | + + + | Marital Status | | + + + | Voodoo Affiliation | NON | + + + [...] [place], [place] | | | | | [address] | | + + + + + Care Team Providers + +------+ + | Care Senior Principal Architect Name | Role | Phone | + +------+ + PCP | Unavailable | + +------+ + Encounter Details +--------+ + + + + | Date | Type | Department | Care Team | Description | +--------+ + + + + | 03/09/ | Respiratory | | Other, Faculty | | | 2005 | Therapy | | [phone] | | +--------+ + + + + [...] | | | | OXYGEN. Madeline Whiting, LAB MANAGER | | | | + + [...] [facility] | [address] | [place], [place] | | | DIAGNOSTICS - | [address] | [address] | | | PULMONARY FUNCTION | | | | + + + + + documented in this encounter Visit Diagnoses Not on filedocumented in this encounter"
--- OUTSIDE RECORDS SUMMARY | ~2019-01-26 | XMS | Encounter Summary ---
Demographics + + + | Address | [address] [facility] | | | [place] [address] | + + + | Home Phone [...] [place], [place] | | | | | [address] | | + + + + + Care Team Providers + +------+ + | Care Sql Engineer Name | Role | Phone | + +------+ + PCP | Unavailable | + +------+ + Encounter Details +--------+ + + + + | Date | Type | Department | Care Team | Description | +--------+ + + + + | 02/20/ | Respiratory | | Other, Faculty | | | 2005 | Therapy | | [phone] | | +--------+ + + + + [...] | | | | | Y | ENTREPRENEURSHIP PROGRAM DIRECTOR | | | | + + [...] | DIAGNOSTICS - | [address] | [address] | | | PULMONARY FUNCTION | | | | + + + + + documented in this encounter Visit Diagnoses Not on filedocumented in this encounter"
--- OUTSIDE RECORDS SUMMARY | ~2019-01-26 | XMS | Encounter Summary ---
Demographics + + + | Address | [address] [facility] | | | [place] [address] | + + + | Home Phone | | + + + | Preferred Language | Unknown | + + + | Marital Status | | + + + | Taoism Affiliation | NON | + + + [...] [place], [place] | | | | | [address] | | + + + + + Care Team Providers + +------+ + | Care Tear Down Worker Name | Role | Phone | + +------+ + PCP | Unavailable | + +------+ + Encounter Details +--------+ + + + + | Date | Type | Department | Care Team | Description | +--------+ + + + + | 03/20/ | Respiratory | | Other, Faculty | | | 2005 | Therapy | | [phone] | | +--------+ + + + + [...] | | | | | Y | ORTHOPHOTOGRAPHY TECHNICIAN | | | | + + [...] [facility] | [address] | [place], [place] | | | DIAGNOSTICS - | [address] | [address] | | | PULMONARY FUNCTION | | | | + + + + + documented in this encounter Visit Diagnoses Not on filedocumented in this encounter"
--- OUTSIDE RECORDS SUMMARY | ~2019-01-26 | XMS | Encounter Summary ---
Demographics + + + | Address | [address] [facility] | | | [place] [address] | + + + | Home Phone [...] [place], [place] | | | | | [address] | | + + + + + Care Team Providers + +------+ + | Care Transit Mixer Operator Name | Role | Phone | + +------+ + PCP | Unavailable | + +------+ + Encounter Details +--------+ + + + + | Date | Type | Department | Care Team | Description | +--------+ + + + + | 03/17/ | Respiratory | | Other, Faculty | | | 2005 | Therapy | | [phone] | | +--------+ + + + + [...] [facility] | [address] | [place], [place] | | | DIAGNOSTICS - | [address] | [address] | | | PULMONARY FUNCTION | | | | + + + + + documented in this encounter Visit Diagnoses Not on filedocumented in this encounter"
--- OUTSIDE RECORDS SUMMARY | ~2019-01-26 | XMS | Encounter Summary ---
Demographics + + + | Address | [address] [facility] | | | [place] [address] | + + + | Home Phone [...] [place], [place] | | | | | [address] | | + + + + + Care Team Providers + +------+ + | Care Peoplesoft Hr Developer Name | Role | Phone | + +------+ + PCP | Unavailable | + +------+ + Encounter Details +--------+ + + + + | Date | Type | Department | Care Team | Description | +--------+ + + + + | 03/16/ | Respiratory | | Other, Faculty | | | 2005 | Therapy | | [phone] | | +--------+ + + + + [...] | | | | | Y | LIQUOR BLENDER | | | | + + [...] [facility] | [address] | [place] | | | DIAGNOSTICS - | [address] | [address] | | | PULMONARY FUNCTION | | | | + + + + + documented in this encounter Visit Diagnoses Not on filedocumented in this encounter"
--- OUTSIDE RECORDS SUMMARY | ~2019-01-26 | XMS | Encounter Summary ---
Demographics + + + | Address | [address] [facility] [facility] [facility] | | | [place] [address] | + + + | Home Phone [...] [place], [place] | | | | | [address] | | + + + + + Care Team Providers + +------+ + | Care Java Mobile Developer Name | Role | Phone | + +------+ + PCP | Unavailable | + +------+ + Encounter Details +--------+ + + + + | Date | Type | Department | Care Team | Description | +--------+ + + + + | 03/11/ | Respiratory | | Other, Faculty | | | 2005 | Therapy | | [phone] | | +--------+ + + + + [...] [facility] | [address] | [place], [place] | | | DIAGNOSTICS - | [address] | [address] | | | PULMONARY FUNCTION | | | | + + + + + documented in this encounter Visit Diagnoses Not on filedocumented in this encounter"
--- OUTSIDE RECORDS SUMMARY | ~2019-01-26 | XMS | Encounter Summary ---
Demographics + + + | Address | [address] [facility] [facility] [facility] | | | [place] [address] | + + + | Home Phone [...] [place], [place] | | | | | [address] | | + + + + + Care Team Providers + +------+ + | Care Squeegee Operator Name | Role | Phone | + +------+ + PCP | Unavailable | + +------+ + Encounter Details +--------+ + + + + | Date | Type | Department | Care Team | Description | +--------+ + + + + | 03/08/ | Respiratory | | Other, Faculty | | | 2005 | Therapy | | [phone] | | +--------+ + + + + [...] | | | | Y | Elia MELTER LOADER | | | | + + + [...] [facility] | [address] | [place], [place] | | | DIAGNOSTICS - | [address] | [address] | | | PULMONARY FUNCTION | | | | + + + + + documented in this encounter Visit Diagnoses Not on filedocumented in this encounter"
--- OUTSIDE RECORDS SUMMARY | ~2019-01-26 | XMS | Encounter Summary ---
Demographics + + + | Address | [address] | | | [place] [address] | + + + | Home Phone [...] [place], [place] | | | | | [address] | | + + + + + Care Team Providers + +------+ + | Care Associate Financial Advisor Name | Role | Phone | + +------+ + PCP | Unavailable | + +------+ + Encounter Details +--------+ + + + + | Date | Type | Department | Care Team | Description | +--------+ + + + + | 03/15/ | Respiratory | | Other, Faculty | | | 2005 | Therapy | | [phone] | | +--------+ + + + + [...] | | | | Y |Yung Boss, FELT PULLER | | | | + + + [...] [facility] | [address] | [place], [place] | | | DIAGNOSTICS - | [address] | [address] | | | PULMONARY FUNCTION | | | | + + + + + documented in this encounter Visit Diagnoses Not on filedocumented in this encounter"
--- OUTSIDE RECORDS SUMMARY | ~2019-01-26 | XMS | Encounter Summary ---
Demographics + + + | Address | [address] [facility] | | | [place] [address] | + + + | Home Phone [...] [place], [place] | | | | | [address] | | + + + + + Care Team Providers + +------+ + | Care Revenue Agent Name | Role | Phone | + +------+ + PCP | Unavailable | + +------+ + Encounter Details +--------+ + + + + | Date | Type | Department | Care Team | Description | +--------+ + + + + | 03/06/ | Respiratory | | Other, Faculty | | | 2005 | Therapy | | [phone] | | +--------+ + + + + [...] | | | | | Y | FRINGING MACHINE OPERATOR | | | | + + [...] [facility] | [address] | [place] | | | DIAGNOSTICS - | [address] | [address] | | | PULMONARY FUNCTION | | | | + + + + + documented in this encounter Visit Diagnoses Not on filedocumented in this encounter"
--- OUTSIDE RECORDS SUMMARY | ~2019-01-26 | XMS | Encounter Summary ---
Demographics + + + | Address | [address] | | | [place] [address] | + + + | Home Phone [...] [place], [place] | | | | | [address] | | + + + + + Care Team Providers + +------+ + | Care Respiratory Therapy Technician Name | Role | Phone | [...]
--- OUTSIDE RECORDS SUMMARY | ~2019-01-26 | XMS | Encounter Summary ---
Demographics + + + | Address | [address] [facility] [facility] | | | [place] [address] | + + + | Home Phone [...] [place], [place] | | | | | [address] | | + + + + + Care Team Providers + +------+ + | Care Licensed Vocational Nurse Name | Role | Phone | [...]
--- OUTSIDE RECORDS SUMMARY | ~2019-01-26 | XMS | Encounter Summary ---
Demographics + + + | Address | [address] [facility] [facility] | | | [place] [address] | + + + | Home Phone | | + + + | Preferred Language | Unknown | + + + | Marital Status | | + + + | Adventist Affiliation | NON | + + + [...] [place], [place] | | | | | [address] | | + + + + + Care Team Providers + +------+ + | Care Laryngologist Name | Role | Phone | + +------+ + PCP | Unavailable | + +------+ + Encounter Details +--------+ + + + + | Date | Type | Department | Care Team | Description | +--------+ + + + + | 03/03/ | Respiratory | | Other, Faculty | | | 2005 | Therapy | | [phone] | | +--------+ + + + + [...] | DIAGNOSTICS - | [address] | [address] | | | PULMONARY FUNCTION | | | | + + + + + documented in this encounter Visit Diagnoses Not on filedocumented in this encounter"
--- OUTSIDE RECORDS SUMMARY | ~2019-01-26 | XMS | Encounter Summary ---
Demographics + + + | Address | [address] | | | [place] [address] | + + + | Home Phone [...] [place], [place] | | | | | [address] | | + + + + + Care Team Providers + +------+ + | Care Performance Consultant Name | Role | Phone | + +------+ + PCP | Unavailable | + +------+ + Encounter Details +--------+ + + + + | Date | Type | Department | Care Team | Description | +--------+ + + + + | 03/07/ | Respiratory | | Other, Faculty | | | 2005 | Therapy | | [phone] | | +--------+ + + + + [...] Howe, | | | | | | PALEOBOTANIST | | | | + + + [...] [facility] | [address] | [place], [place] | | | DIAGNOSTICS - | [address] | [address] | | | PULMONARY FUNCTION | | | | + + + + + documented in this encounter Visit Diagnoses Not on filedocumented in this encounter"
--- OUTSIDE RECORDS SUMMARY | ~2019-01-26 | XMS | Encounter Summary ---
Demographics + + + | Address | [address] | | | [place] [address] | + + + | Home Phone | | + + + | Preferred Language | Unknown | + + + | Marital Status | | + + + | Church Affiliation | NON | + + + | Race | White | + + + | Ethnic Group | Not or | + + + Author + + + | Author | [facility] | + + + | Organization | [facility] | + + + | Address | Unknown | + + + | Phone | Unavailable | + + + Support + + + + + | Name | Relationship | Address | Phone | + + + + + | Yanni Antoine | ECON | [address] | | | | | [place], [place] | | | | | [address] | | + + + + + Care Team Providers + +------+ + | Care Wine Sales Representative Name | Role | Phone | [...] [address] | | | | | [facility] | [facility] | | | | | [place], [place] | [place], [place] | | | | | [address] | [address] | | | | | | [phone] | | | | | | | [...] | | + +---------+ + + | [facility] DEPARTMENT OF | [...] | | + +---------+ + + | [facility] DEPARTMENT OF | [...] | | + +---------+ + + | [facility] DEPARTMENT OF | [...] | | + +---------+ + + | [facility] DEPARTMENT OF | [...] | | + +---------+ + + | [facility] DEPARTMENT OF | | | | | RADIOLOGY | | | | + +---------+ + + documented in this encounter Visit Diagnoses Not on filedocumented in this encounter"
--- OUTSIDE RECORDS SUMMARY | ~2019-01-26 | XMS | Encounter Summary ---
Demographics + + + | Address | [address] | | | [place] [address] | + + + | Home Phone [...] [place], [place] | | | | | [address] | | + + + + + Care Team Providers + +------+ + | Care Export Administrator Name | Role | Phone | + +------+ + PCP | Unavailable | + +------+ + Encounter Details +--------+ + + + + | Date | Type | Department | Care Team | Description | +--------+ + + + + | 03/04/ | Respiratory | | Other, Faculty | | | 2005 | Therapy | | [phone] | | +--------+ + + + + [...] Mac, | | | | | | ADVISORY INTERN | | | | + + [...] [facility] | [address] | [place], [place] | | | DIAGNOSTICS - | [address] | [address] | | | PULMONARY FUNCTION | | | | + + + + + documented in this encounter Visit Diagnoses Not on filedocumented in this encounter"
--- OUTSIDE RECORDS SUMMARY | ~2019-01-26 | XMS | Encounter Summary ---
Demographics + + + | Address | [address] [facility] [address] | | | [place] [address] | + + + | Home Phone [...] [place], [place] | | | | | [address] | | + + + + + Care Team Providers + +------+ + | Care Noise Abatement Engineer Name | Role | Phone | + +------+ + PCP | Unavailable | + +------+ + Encounter Details +--------+ + + + + | Date | Type | Department | Care Team | Description | +--------+ + + + + | 03/10/ | Respiratory | | Other, Faculty | | | 2005 | Therapy | | [phone] | | +--------+ + + + + [...] | | | | | Y | SCREEN WRITER | | | | + + + [...] [facility] | [address] | [place], [place] | | | DIAGNOSTICS - | [address] | [address] | | | PULMONARY FUNCTION | | | | + + + + + documented in this encounter Visit Diagnoses Not on filedocumented in this encounter"
--- OUTSIDE RECORDS SUMMARY | ~2019-01-26 | XMS | Encounter Summary ---
Demographics + + + | Address | [address] [facility] | | | [place] [address] | + + + | Home Phone [...] [place], [place] | | | | | [address] | | + + + + + Care Team Providers + +------+ + | Care Social Science Manager Name | Role | Phone | + +------+ + PCP | Unavailable | + +------+ + Encounter Details +--------+ + + + + | Date | Type | Department | Care Team | Description | +--------+ + + + + | 02/19/ | Respiratory | | Other, Faculty | | | 2005 | Therapy | | [phone] | | +--------+ + + + + [...] | | | | | Y | ATTENDING PHYSICIAN | | | | + + [...] | DIAGNOSTICS - | [address] | [address] | | | PULMONARY FUNCTION | | | | + + + + + documented in this encounter Visit Diagnoses Not on filedocumented in this encounter"
--- OUTSIDE RECORDS SUMMARY | ~2019-01-26 | XMS | Encounter Summary ---
Demographics + + + | Address | [address] [facility] | | | [place] [address] | + + + | Home Phone [...] [place], [place] | | | | | [address] | | + + + + + Care Team Providers + +------+ + | Care Pelts Skinner Name | Role | Phone | + +------+ + PCP | Unavailable | + +------+ + Encounter Details +--------+ + + + + | Date | Type | Department | Care Team | Description | +--------+ + + + + | 03/14/ | Respiratory | | Other, Faculty | | | 2005 | Therapy | | [phone] | | +--------+ + + + + [...] | | GAS/HUMIDIT | OXYGEN. Viridiana Yu LOGISTICS INTERN | | | | | Y |Viridiana Yu LOGISTICS INTERN | | | | + + [...] [facility] | [address] | [place], [place] | | | DIAGNOSTICS - | [address] | [address] | | | PULMONARY FUNCTION | | | | + + + + + documented in this encounter Visit Diagnoses Not on filedocumented in this encounter"
--- OUTSIDE RECORDS SUMMARY | ~2019-01-26 | XMS | Encounter Summary ---
Demographics + + + | Address | [address] | | | [place] [address] | + + + | Home Phone [...] [place], [place] | | | | | [address] | | + + + + + Care Team Providers + +------+ + | Care Electrophysiology Technician Name | Role | Phone | + +------+ + PCP | Unavailable | + +------+ + Encounter Details +--------+ + + + + | Date | Type | Department | Care Team | Description | +--------+ + + + + | 03/19/ | Respiratory | | Other, Faculty | | | 2005 | Therapy | | [phone] | | +--------+ + + + + [...] [facility] | [address] | [place], [place] | | | DIAGNOSTICS - | [address] | [address] | | | PULMONARY FUNCTION | | | | + + + + + documented in this encounter Visit Diagnoses Not on filedocumented in this encounter"
--- OUTSIDE RECORDS SUMMARY | ~2019-01-26 | XMS | Encounter Summary ---
Demographics + + + | Address | [address] [facility] [facility] | | | [place] [address] | + + + | Home Phone [...] [place], [place] | | | | | [address] | | + + + + + Care Team Providers + +------+ + | Care Industrial Engineering Intern Name | Role | Phone | + +------+ + PCP | Unavailable | + +------+ + Encounter Details +--------+ + + + + | Date | Type | Department | Care Team | Description | +--------+ + + + + | 03/09/ | Respiratory | | Other, Faculty | | | 2005 | Therapy | | [phone] | | +--------+ + + + + [...] | | | | OXYGEN. Madeline Whiting, PROCESSING MGR | | | | + + + [...] [facility] | [address] | [place], [place] | | | DIAGNOSTICS - | [address] | [address] | | | PULMONARY FUNCTION | | | | + + + + + documented in this encounter Visit Diagnoses Not on filedocumented in this encounter"
--- OUTSIDE RECORDS SUMMARY | ~2019-01-26 | XMS | Encounter Summary ---
Demographics + + + | Address | [address] | | | [place] [address] | + + + | Home Phone [...] [place], [place] | | | | | [address] | | + + + + + Care Team Providers + +------+ + | Care Managed Care Analyst Name | Role | Phone | + +------+ + PCP | Unavailable | + +------+ + Encounter Details +--------+ + + + + | Date | Type | Department | Care Team | Description | +--------+ + + + + | 03/11/ | Respiratory | | Other, Faculty | | | 2005 | Therapy | | [phone] | | +--------+ + + + + [...] | | | | | Y | DEWER | | | | + + + [...] [facility] | [address] | [place], [place] | | | DIAGNOSTICS - | [address] | [address] | | | PULMONARY FUNCTION | | | | + + + + + documented in this encounter Visit Diagnoses Not on filedocumented in this encounter"
--- OUTSIDE RECORDS SUMMARY | ~2019-01-26 | XMS | Encounter Summary ---
Demographics + + + | Address | [address] [facility] | | | [place] [address] | + + + | Home Phone [...] [place], [place] | | | | | [address] | | + + + + + Care Team Providers + +------+ + | Care Industrial Relations Officer Name | Role | Phone | [...]
--- OUTSIDE RECORDS SUMMARY | ~2019-01-26 | XMS | Encounter Summary ---
Demographics + + + | Address | [address] [facility] [facility] | | | [place] [address] | + + + | Home Phone [...] [place], [place] | | | | | [address] | | + + + + + Care Team Providers + +------+ + | Care Business Taxes Specialist Name | Role | Phone | [...] | Transcriptions | + + | Interface, Senior It Business Analyst In - 05/07/2006 2:08 AM PDT | | [id number] | | [id number] [place] [id number] | | | | Date: 02/10/2006 | | | | Attending Surgeon: Marcos Sin M.D. | | | | [employer] Combat Skills(s): Gloria Dockery M.D. | | Harmeet Sims [...] | | | / HS | | [id number] / [id number] / [id number] / [id number] | | | | | | | | | | | | | | Electronically signed by Jong Sin 05-06-2006 04:56:24 PM | + + documented in this encounter Visit Diagnoses Not on filedocumented in this encounter"
--- OUTSIDE RECORDS SUMMARY | ~2019-01-26 | XMS | Encounter Summary ---
Demographics + + + | Address | [address] [facility] | | | [place] [address] | + + + | Home Phone [...] [place], [place] | | | | | [address] | | + + + + + Care Team Providers + +------+ + | Care Tire Specialist Name | Role | Phone | + +------+ + PCP | Unavailable | + +------+ + Encounter Details +--------+ + + + + | Date | Type | Department | Care Team | Description | +--------+ + + + + | 02/27/ | Respiratory | | Other, Faculty | | | 2005 | Therapy | | [phone] | | +--------+ + + + + [...] [facility] | [address] | [place], [place] | | | DIAGNOSTICS - | [address] | [address] | | | PULMONARY FUNCTION | | | | + + + + + documented in this encounter Visit Diagnoses Not on filedocumented in this encounter"
--- OUTSIDE RECORDS SUMMARY | ~2019-01-26 | XMS | Encounter Summary ---
Demographics + + + | Address | [address] [facility] | | | [place] [address] | + + + | Home Phone [...] [place], [place] | | | | | [address] | | + + + + + Care Team Providers + +------+ + | Care Dough Mixer Helper Name | Role | Phone | + +------+ + PCP | Unavailable | + +------+ + Encounter Details +--------+ + + + + | Date | Type | Department | Care Team | Description | +--------+ + + + + | 03/10/ | Respiratory | | Other, Faculty | | | 2005 | Therapy | | [phone] | | +--------+ + + + + [...] Oconnell, | | | | | | LAST PULLER | | | | + + [...] [facility] | [address] | [place], [place] | | | DIAGNOSTICS - | [address] | [address] | | | PULMONARY FUNCTION | | | | + + + + + documented in this encounter Visit Diagnoses Not on filedocumented in this encounter"
--- OUTSIDE RECORDS SUMMARY | ~2019-01-26 | XMS | Encounter Summary ---
Demographics + + + | Address | [address] [facility] | | | [place] [address] | + + + | Home Phone [...] [place], [place] | | | | | [address] | | + + + + + Care Team Providers + +------+ + | Care Host And Hostess Name | Role | Phone | + +------+ + PCP | Unavailable | + +------+ + Encounter Details +--------+ + + + + | Date | Type | Department | Care Team | Description | +--------+ + + + + | 03/14/ | Respiratory | | Other, Faculty | | | 2005 | Therapy | | [phone] | | +--------+ + + + + [...] | | | | Y |Yung Boss, STAFF SERVICES MANAGER | | | | + + [...] [facility] | [address] | [place], [place] | | | DIAGNOSTICS - | [address] | [address] | | | PULMONARY FUNCTION | | | | + + + + + documented in this encounter Visit Diagnoses Not on filedocumented in this encounter"
--- OUTSIDE RECORDS SUMMARY | ~2019-01-26 | XMS | Encounter Summary ---
Demographics + + + | Address | [address] [facility] | | | [place] [address] | + + + | Home Phone [...] [place], [place] | | | | | [address] | | + + + + + Care Team Providers + +------+ + | Care Oil Burner Servicer And Installer Name | Role | Phone | + +------+ + PCP | Unavailable | + +------+ + Encounter Details +--------+ + + + + | Date | Type | Department | Care Team | Description | +--------+ + + + + | 03/18/ | Respiratory | | Other, Faculty | | | 2005 | Therapy | | [phone] | | +--------+ + + + + [...] | | | | | Y | RECYCLING TECH | | | | + + + [...] [facility] | [address] | [place] | | | DIAGNOSTICS - | [address] | [address] | | | PULMONARY FUNCTION | | | | + + + + + documented in this encounter Visit Diagnoses Not on filedocumented in this encounter"
--- OUTSIDE RECORDS SUMMARY | ~2019-01-26 | XMS | Encounter Summary ---
Demographics + + + | Address | [address] [facility] | | | [place] [address] | + + + | Home Phone [...] [place], [place] | | | | | [address] | | + + + + + Care Team Providers + +------+ + | Care Assistant Business Manager Name | Role | Phone | + +------+ + PCP | Unavailable | + +------+ + Encounter Details +--------+ + + + + | Date | Type | Department | Care Team | Description | +--------+ + + + + | 02/28/ | Respiratory | | Other, Faculty | | | 2005 | Therapy | | [phone] | | +--------+ + + + + [...] Rothman, | | | | | | FREIGHT RATE ANALYST | | | | + + [...] + + + | [facility] | [address] | [place], [place] | | | DIAGNOSTICS - | [address] | [address] | | | PULMONARY FUNCTION | | | | + + + + + documented in this encounter Visit Diagnoses Not on filedocumented in this encounter"
--- OUTSIDE RECORDS SUMMARY | ~2019-01-26 | XMS | Encounter Summary ---
Demographics + + + | Address | [address] | | | [place] [address] | + + + | Home Phone [...] [place], [place] | | | | | [address] | | + + + + + Care Team Providers + +------+ + | Care Apprenticeship Training Representative Name | Role | Phone | + +------+ + PCP | Unavailable | + +------+ + Encounter Details +--------+ + + + + | Date | Type | Department | Care Team | Description | +--------+ + + + + | 02/21/ | Respiratory | | Other, Faculty | | | 2005 | Therapy | | [phone] | | +--------+ + + + + [...] | | GAS/HUMIDIT | OXYGEN. Ángel Combs, ELECTRONIC TECHNOLOGIST | | | | | Y |Ángel Combs, ELECTRONIC TECHNOLOGIST | | | | + + + [...] [facility] | [address] | [place], [place] | | | DIAGNOSTICS - | [place] | [address] | | | PULMONARY FUNCTION | | | | + + + + + documented in this encounter Visit Diagnoses Not on filedocumented in this encounter"
--- OUTSIDE RECORDS SUMMARY | ~2019-01-26 | XMS | Encounter Summary ---
Demographics + + + | Address | [address] | | | [place] [address] | + + + | Home Phone [...] [place], [place] | | | | | [address] | | + + + + + [...] | | 2005 | Therapy | | [phone] | | +--------+ + + + + [...] Bazan, | | | | | | ACADEMIC PROGRAM SPECIALIST | | | | + + [...] [facility] | [address] | [place] | | | DIAGNOSTICS - | [place] | [phone] | | | PULMONARY FUNCTION | | | | + + + + + documented in this encounter Visit Diagnoses Not on filedocumented in this encounter"
--- OUTSIDE RECORDS SUMMARY | ~2019-01-26 | XMS | Encounter Summary ---
Demographics + + + | Address | [address] | | | [place] [address] | + + + | Home Phone [...] [place], [place] | | | | | [address] | | + + + + + Care Team Providers + +------+ + | Care Bee Rancher Name | Role | Phone | + +------+ + PCP | Unavailable | + +------+ + Encounter Details +--------+ + + + + | Date | Type | Department | Care Team | Description | +--------+ + + + + | 02/26/ | Respiratory | | Other, Faculty | | | 2005 | Therapy | | [phone] | | +--------+ + + + + [...] [facility] | [address] | [place], [place] | | | DIAGNOSTICS - | [place] | [phone] | | | PULMONARY FUNCTION | | | | + + + + + documented in this encounter Visit Diagnoses Not on filedocumented in this encounter"
--- OUTSIDE RECORDS SUMMARY | ~2019-01-26 | XMS | Encounter Summary ---
Demographics + + + | Address | [address] | | | [place] [address] | + + + | Home Phone [...] [place], [place] | | | | | [address] | | + + + + + Care Team Providers + +------+ + | Care Cmm Technician Name | Role | Phone | + +------+ + PCP | Unavailable | + +------+ + Encounter Details +--------+ + + + + | Date | Type | Department | Care Team | Description | +--------+ + + + + | 03/08/ | Respiratory | | Other, Faculty | | | 2005 | Therapy | | [phone] | | +--------+ + + + + [...] + | [facility] | [address] | [place], [place] | | | DIAGNOSTICS - | [place] | [phone] | | | PULMONARY FUNCTION | | | | + + + + + documented in this encounter Visit Diagnoses Not on filedocumented in this encounter"
--- OUTSIDE RECORDS SUMMARY | ~2019-01-26 | XMS | Encounter Summary ---
Demographics + + + | Address | [address] | | | [place] [address] | + + + | Home Phone [...] [id number], [place] | | | | | [address] | | + + + + + Care Team Providers + +------+ + | [facility] Name | Role | Phone | + [...] [address] | | | | | [facility] Mailcode: | [address] | | | | | [id number] [place], [place] | [place] | | | | | [address] | [address] | | | | | [phone] | [phone] | | | | | | | [...] PDT | + +---------+--------+ + + | [facility]-JXSC-LDWD-DONT | Lab | Routin | | 02/09/2006 [...] | | + +---------+ + + | [facility] DEPARTMENT OF | | | [...] | + + + + + | [facility] DEPARTMENT OF | [address] | [place] [address] | | | PATHOLOGY | [address] | | | + + + + + | [facility] DEPARTMENT OF | [address] | [place] [address] | | | PATHOLOGY | [address] [...] | | | | | performed by [facility] | | | | | | [facility] | | | | | | Laboratories. | | | | + + + + + + + + | Specimen | + + | | + + + + + + + | Performing | Address | City/State/Zipcode | Phone Number | | Organization | | | | + + + + + | [facility] | [address] | [place] [address] | | | LABORATORY | | | [...] | | + +---------+ + + | [facility] DEPARTMENT OF | | | [...] + + + | [facility] | [address] | [place] [address] | | | LAB-MICRO | | | [...] + + + + + | [facility] | [address] | [place] [address] | | | LAB-MICRO | | | [...] | | + +---------+ + + | [facility] DEPARTMENT OF | | | [...] DEPARTMENT OF | [address] | [place] [address] | | | PATHOLOGY | [address] | | | + + + + + | [facility] DEPARTMENT OF | [address] | [place] [address] | | | PATHOLOGY | [address] [...] DEPARTMENT OF | [address] | [place] [address] | | | PATHOLOGY | [address] | | | + + + + + | [facility] DEPARTMENT OF | [address] | [place] [address] | | | PATHOLOGY | [address] [...] + + + + + | [facility] | [address] | [place] [address] | | | PATHOLOGY | [address] | | | + + + + + | [facility] | [address] [place] [address] [address] [place] | [place] [address] | | | PATHOLOGY | [address] [...] + + + + + | [facility] | [facility] [facility] | [place] [address] | | | PATHOLOGY | [address] | | | + + + + + | [facility] | [address] [place] [address] | [place] [address] | | | PATHOLOGY | [address] [...] DEPARTMENT OF | [address] | [place] [address] | | | PATHOLOGY | [address] | | | + + + + + | [facility] DEPARTMENT OF | [address] [facility] | [place] [address] | | | PATHOLOGY | [address] [...] | | | | | | [facility] | | | | | | Laboratory. | | | | + + + + + + + + | Specimen | + + | | + + + + + + + | Performing | Address | City/State/Zipcode | Phone Number | | Organization | | | | + + + + + | [facility] | [address] | [place] [address] | | | LAB-MICRO | | | [...] [facility] | | | | | | [facility] | | | | | | Laboratory. | | | | + + + + + + + + | Specimen | + + | | + + + + + + + | Performing | Address | City/State/Zipcode | Phone Number | | Organization | | | | + + + + + | [facility] | [address] | [place] [address] | | | LAB-MICRO | | | [...] + + + + + | [facility] | [address] [facility] | [place] [address] | | | PATHOLOGY | [address] | | | + + + + + | [facility] DEPARTMENT | [address] [facility] | [place] [address] | | | PATHOLOGY | [address] [...] | | | | | | [facility] | | | | | | Laboratories. | | | | + + + + + + + + | Specimen | + + | | + + + + + + + | Performing | Address | City/State/Zipcode | Phone Number | | Organization | | | | + + + + + | [facility] | [address] | [place] [address] | | | LABORATORY | | | [...] + + + + + | [facility] | [address] [facility] | [place] [address] | | | PATHOLOGY | [address] | | | + + + + + | [facility] DEPARTMENT | [address] [facility] | [place] [address] | | | PATHOLOGY | [address] [...] | + + + + + | [facility] DEPARTMENT OF | [address] | [place] [address] | | | PATHOLOGY | [address] | | | + + + + + | [facility] DEPARTMENT OF | [address] | [place] [address] | | | PATHOLOGY | [address] [...] DEPARTMENT OF | [address] | [place] [address] | | | PATHOLOGY | [address] | | | + + + + + | [facility] DEPARTMENT OF | [address] | [place] [address] | | | PATHOLOGY | [address] | | | + + + + + MAGNESIUM, PLASMA (03/07/2006 6:35 AM PDT) + +-------+ + + + | Component | Value | Ref Range | Performed | Pathologist | | | | | At | Signature | + +-------+ + + + | MAGNESIUM,P | 2.3 | 1.8 - 2.5 mg/dL | [facility] | | | LASMA | [...] + + + + + | [facility] | [address] | [place] [address] | | | PATHOLOGY | [address] | | | + + + + + | [facility] | [facility] | [place] [address] | | | PATHOLOGY | [address] [...] + + + + + | [facility] | [address] [facility] | [place] [address] | | | PATHOLOGY | [address] | | | + + + + + | [facility] DEPARTMENT OF | [address] [facility] [facility] | [place] [address] | | | PATHOLOGY | [address] [...] + + + + + | [facility] | [address] | [place] [address] | | | LAB-MICRO | | | [...] [facility] | | | | | | [facility] | | | | | | Laboratory. | | | | + + + + + + + + | Specimen | + + | | + + + + + + + | Performing | Address | City/State/Zipcode | Phone Number | | Organization | | | | + + + + + | [facility] | [address] | [place] [address] | | | LAB-MICRO | | | [...] + + + | STOOL DATE | [id number] | | | | | COLLECTION | [...] + + + | [facility] | [address] | [place] [address] | | | LAB-MICRO | | | [...] DEPARTMENT OF | [address] | [place] [address] | | | PATHOLOGY | [address] | | | + + + + + | [facility] DEPARTMENT OF | [address] | [place] [address] | | | PATHOLOGY | [address] [...] DEPARTMENT OF | [address] | [place] [address] | | | PATHOLOGY | [address] | | | + + + + + | [facility] DEPARTMENT OF | [address] | [place] [address] | | | PATHOLOGY | [address] [...] | + + + + + | [facility] | [address] | [place] [address] | | | PATHOLOGY | [address] | | | + + + + + | [facility] | [facility] [address] | [place] [address] | | | PATHOLOGY | [address] [...] + + + + + | [facility] | [address] [place] [address] [address] [place] | [place] [address] | | | PATHOLOGY | [address] | | | + + + + + | [facility] DEPARTMENT OF | [address] [place] [address] [address] [place] | [place] [address] | | | PATHOLOGY | [address] [...] DEPARTMENT OF | [address] | [place] [address] | | | PATHOLOGY | [address] | | | + + + + + | [facility] DEPARTMENT OF | [address] | [place] [address] | | | PATHOLOGY | [address] [...] + + + + + | [facility] | [address] [facility] | [place] [address] | | | PATHOLOGY | [address] | | | + + + + + | [facility] | [address] [facility] | [place] [address] | | | PATHOLOGY | [address] [...] DEPARTMENT OF | [address] | [place] [address] | | | PATHOLOGY | [address] | | | + + + + + | [facility] DEPARTMENT OF | [address] | [place] [address] | | | PATHOLOGY | [address] [...] DEPARTMENT OF | [address] | [place] [address] | | | PATHOLOGY | [address] | | | + + + + + | [facility] DEPARTMENT | [address] | [place] [address] | | | PATHOLOGY | [address] [...] DEPARTMENT OF | [address] | [place] [address] | | | PATHOLOGY | [address] | | | + + + + + | [facility] DEPARTMENT OF | [address] | [place] [address] | | | PATHOLOGY | [address] [...] + + + + + | [facility] | [facility] | [place] [address] | | | PATHOLOGY | [address] | | | + + + + + | [facility] DEPARTMENT OF | [address] | [place] [address] | | | PATHOLOGY | [address] [...] | + + + + + | [facility] DEPARTMENT OF | [address] | [place] [address] | | | PATHOLOGY | [address] | | | + + + + + | [facility] DEPARTMENT OF | [address] | [place] [address] | | | PATHOLOGY | [address] [...] + + + + + | [facility] | [address] [facility] | [place] [address] | | | PATHOLOGY | [address] | | | + + + + + | [facility] | [address] [facility] [facility] | [place] [address] | | | PATHOLOGY | [address] [...] + + + + + | [facility] | [address] [facility] | [place] [address] | | | PATHOLOGY | [address] | | | + + + + + | [facility] | [address] [facility] | [place] [address] | | | PATHOLOGY | [address] [...] DEPARTMENT OF | [address] | [place] [address] | | | PATHOLOGY | [address] | | | + + + + + | [facility] DEPARTMENT OF | [address] | [place] [address] | | | PATHOLOGY | [address] | | | + + + + + MAGNESIUM, PLASMA (02/25/2006 6:36 AM PDT) + +-------+ + + + | Component | Value | Ref Range | Performed | Pathologist | | | | | At | Signature | + +-------+ + + + | MAGNESIUM,P | 2.2 | 1.8 - 2.5 mg/dL | [facility] | | | LASMA | [...] | + + + + + | [facility] DEPARTMENT OF | [address] [facility] [facility] | [place] [address] | | | PATHOLOGY | [address] | | | + + + + + | [facility] | [address] [facility] [facility] | [place] [address] | | | PATHOLOGY | [address] [...] | + + + + + | [facility] DEPARTMENT OF | [facility] | [place] [address] | | | PATHOLOGY | [address] | | | + + + + + | [facility] DEPARTMENT OF | [facility] | [place] [address] | | | PATHOLOGY | [address] [...] | + + + + + | [facility] DEPARTMENT OF | [address] [facility] | [place] [address] | | | PATHOLOGY | [address] | | | + + + + + | [facility] DEPARTMENT OF | [address] [facility] | [place] [address] | | | PATHOLOGY | [address] [...] OF | [address] | [place] [address] | | | PATHOLOGY | [address] | | | + + + + + | [facility] DEPARTMENT OF | [address] | [place] [address] | | | PATHOLOGY | [address] [...] + + + + + | [facility] | [address] [facility] | [place] [address] | | | PATHOLOGY | [address] | | | + + + + + | [facility] | [address] [facility] [facility] | [place] [address] | | | PATHOLOGY | [address] | | | + + + + + PHOSPHORUS, PLASMA (02/23/2006 9:05 AM PDT) + +-------+ + + + | Component | Value | Ref Range | Performed | Pathologist | | | | | At | Signature | + +-------+ + + + | PHOSPHORUS, | 2.8 | 2.4 - 4.7 mg/dL | [facility] | | | PLASMA | [...] | + + + + + | [facility] DEPARTMENT OF | [address] | [place] [address] | | | PATHOLOGY | [address] | | | + + + + + | [facility] DEPARTMENT OF | [address] | [place] [address] | | | PATHOLOGY | [address] [...] DEPARTMENT OF | [address] | [place] [address] | | | PATHOLOGY | [address] | | | + + + + + | [facility] DEPARTMENT OF | [address] | [place] [address] | | | PATHOLOGY | [address] [...] DEPARTMENT OF | [address] | [place] [address] | | | PATHOLOGY | [address] | | | + + + + + | [facility] DEPARTMENT OF | [address] | [place] [address] | | | PATHOLOGY | [address] [...] | + + + + + | [facility] DEPARTMENT OF | [address] [facility] [facility] | [place] [address] | | | PATHOLOGY | [address] | | | + + + + + | [facility] DEPARTMENT OF | [address] [facility] | [place] [address] | | | PATHOLOGY | [address] [...] DEPARTMENT OF | [address] | [place] [address] | | | PATHOLOGY | [address] | | | + + + + + | [facility] DEPARTMENT OF | [address] | [place] [address] | | | PATHOLOGY | [address] [...] DEPARTMENT OF | [address] | [place] [address] | | | PATHOLOGY | [address] | | | + + + + + | [facility] DEPARTMENT OF | [address] | [place] [address] | | | PATHOLOGY | [address] [...] | + + + + + | [facility] | [address] | [place] [address] | | | PATHOLOGY | [address] | | | + + + + + | [facility] | [facility] [address] | [place] [address] | | | PATHOLOGY | [address] [...] DEPARTMENT OF | [address] | [place] [address] | | | PATHOLOGY | [address] | | | + + + + + | [facility] | [address] | [place] [address] | | | PATHOLOGY | [address] [...] DEPARTMENT OF | [address] | [place] [address] | | | PATHOLOGY | [address] | | | + + + + + | [facility] DEPARTMENT OF | [address] | [place] [address] | | | PATHOLOGY | [address] [...] | + + + + + | [facility] DEPARTMENT OF | [address] | [place] [address] | | | PATHOLOGY | [address] | | | + + + + + | [facility] DEPARTMENT OF | [facility] | [place] [address] | | | PATHOLOGY | [address] [...] | + + + + + | [facility] DEPARTMENT OF | [address] [facility] | [place] [address] | | | PATHOLOGY | [address] | | | + + + + + | [place] DEPARTMENT OF | [address] [facility] | [place] [address] | | | PATHOLOGY | [address] [...] + + | [facility] DEPARTMENT OF | [address] | [place] [address] | | | PATHOLOGY | [address] | | | + + + + + | [facility] DEPARTMENT OF | [address] | [place] [address] | | | PATHOLOGY | [address] [...] + + + + + | [facility] | [address] | [place] [address] | | | PATHOLOGY | [address] | | | + + + + + | [facility] | [address] | [place] [address] | | | PATHOLOGY | [address] [...] | + + + + + | [facility] DEPARTMENT OF | [address] | [place] [address] | | | PATHOLOGY | [address] | | | + + + + + | [facility] DEPARTMENT OF | [address] | [place] [address] | | | PATHOLOGY | [address] [...] | + + + + + | [facility] DEPARTMENT | [address] [facility] [facility] | [place] [address] | | | PATHOLOGY | [address] | | | + + + + + | [facility] DEPARTMENT OF | [address] [facility] | [place] [address] | | | PATHOLOGY | [address] [...] + + + + + | [facility] | [address] | [place] [address] | | | PATHOLOGY | [address] | | | + + + + + | [facility] | [facility] | [place] [address] | | | PATHOLOGY | [address] [...] + + + + + | [facility] | [address] | [place] [address] | | | PATHOLOGY | [address] | | | + + + + + | [facility] | [facility] | [place] [address] | | | PATHOLOGY | [address] [...] DEPARTMENT OF | [address] | [place] [address] | | | PATHOLOGY | [address] | | | + + + + + | [facility] | [address] | [place] [address] | | | PATHOLOGY | [address] [...] DEPARTMENT OF | [address] | [place] [address] | | | PATHOLOGY | [address] | | | + + + + + | [facility] | [address] | [place] [address] | | | PATHOLOGY | [address] [...] | | | | Test performed at [facility] | | | | | | [facility] | | | | | | Laboratory. | | | | + + + + + + + + | Specimen | + + | | + + + + + + + | Performing | Address | City/State/Zipcode | Phone Number | | Organization | | | | + + + + + | [facility] | [address] | [place] [address] | | | LAB-MICRO | | | [...] | | | | | performed at [facility] | | | | | | [facility] | | | | | | Laboratory. | | | | + + + + + + + + | Specimen | + + | | + + + + + + + | Performing | Address | City/State/Zipcode | Phone Number | | Organization | | | | + + + + + | [facility] | [address] | [place] [address] | | | LAB-MICRO | | | [...] | | | | | performed at [facility] | | | | | | [facility] | | | | | | Laboratory. | | | | + + + + + + + + | Specimen | + + | | + + + + + + + | Performing | Address | City/State/Zipcode | Phone Number | | Organization | | | | + + + + + | [facility] | [address] | [place] [address] | | | LAB-MICRO | | | [...] | | | | | performed at [facility] | | | | | | [facility] | | | | | | Laboratory. | | | | + + + + + + + + | Specimen | + + | | + + + + + + + | Performing | Address | City/State/Zipcode | Phone Number | | Organization | | | | + + + + + | [facility] | [address] | [place] [address] | | | LAB-MICRO | | | [...] at | | | | | | [facility] | | | | | | [facility]. | | | | + + + + + + + + | Specimen | + + | | + + + + + + + | Performing | Address | City/State/Zipcode | Phone Number | | Organization | | | | + + + + + | [facility] | [address] | [place] [address] | | | LAB-MICRO | | | [...] | + + + + + | [facility] DEPARTMENT OF | [address] | [place] [address] | | | PATHOLOGY | [address] | | | + + + + + | [facility] DEPARTMENT OF | [address] | [place] [address] | | | PATHOLOGY | [address] [...] | + + + + + | [facility] DEPARTMENT OF | [address] | [place] [address] | | | PATHOLOGY | [address] | | | + + + + + | [facility] DEPARTMENT OF | [address] | [place] [address] | | | PATHOLOGY | [address] [...] | + + + + + | [facility] DEPARTMENT OF | [address] | [place] [address] | | | PATHOLOGY | [address] | | | + + + + + | [facility] DEPARTMENT OF | [address] | [place] [address] | | | PATHOLOGY | [address] | | | + + + + + BASIC METABOLIC SET (02/19/2006 2:30 AM PDT) + +---------+ + + + | Component | Value | Ref Range | Performed | Pathologist | | | | | At | Signature | + +---------+ + + + | GLUCOSE, | 150 (H) | 65 - 110 mg/dL | [facility] | | | PLASMA | [...] + | [facility] DEPARTMENT OF | [address] | [place] [address] | | | PATHOLOGY | [address] | | | + + + + + | [facility] DEPARTMENT OF | [address] [facility] [facility] | [place] [address] | | | PATHOLOGY | [address] [...] | + + + + + | [facility] DEPARTMENT OF | [address] [facility] | [place] [address] | | | PATHOLOGY | [address] | | | + + + + + | [facility] DEPARTMENT OF | [address] | [place] [address] | | | PATHOLOGY | [address] [...] + + + + + | [facility] | [address] [facility] [facility] | [place] [address] | | | PATHOLOGY | [address] | | | + + + + + | [facility] | [address] | [place] [address] | | | PATHOLOGY | [address] [...] | + + + + + | [facility] DEPARTMENT OF | [address] | [place] [address] | | | PATHOLOGY | [address] | | | + + + + + | [facility] DEPARTMENT OF | [address] [facility] | [place] [address] | | | PATHOLOGY | [address] [...] DEPARTMENT OF | [address] | [place] [address] | | | PATHOLOGY | [address] | | | + + + + + | [facility] DEPARTMENT OF | [address] | [place] [address] | | | PATHOLOGY | [address] [...] + + + + + | [facility] | [address] | [place] [address] | | | PATHOLOGY | [address] | | | + + + + + | [facility] | [address] [facility] [facility] | [place] [address] | | | PATHOLOGY | [address] [...] | | | | | performed at [facility] | | | | | | [facility] | | | | | | Laboratory. | | | | + + + + + + + + | Specimen | + + | | + + + + + + + | Performing | Address | City/State/Zipcode | Phone Number | | Organization | | | | + + + + + | [facility] | [address] | [place] [address] | | | LAB-MICRO | | | [...] | | + +---------+ + + | [facility] DEPARTMENT OF | | | [...] | + + + + + | [facility] DEPARTMENT OF | [address] | [place] [address] | | | PATHOLOGY | [address] | | | + + + + + | [facility] DEPARTMENT OF | [address] [facility] [facility] | [place] [address] | | | PATHOLOGY | [address] [...] DEPARTMENT OF | [address] | [place] [address] | | | PATHOLOGY | [address] | | | + + + + + | [facility] DEPARTMENT OF | [address] | [place] [address] | | | PATHOLOGY | [address] | | | + + + + + MAGNESIUM, PLASMA (02/17/2006 1:39 AM PDT) + +-------+ + + + | Component | Value | Ref Range | Performed | Pathologist | | | | | At | Signature | + +-------+ + + + | MAGNESIUM,P | 2.2 | 1.8 - 2.5 mg/dL | [facility] | | | LASMA | [...] | + + + + + | [facility] DEPARTMENT OF | [address] | [place] [address] | | | PATHOLOGY | [address] | | | + + + + + | [facility] | [address] | [place] [address] | | | PATHOLOGY | [address] [...] + + + + + | [facility] | [address] | [place] [address] | | | PATHOLOGY | [address] | | | + + + + + | [facility] | [address] [place] [address] | [place] [address] | | | PATHOLOGY | [address] [...] + + + + + | [facility] | [address] | [place] [address] | | | PATHOLOGY | [address] | | | + + + + + | [facility] DEPARTMENT OF | [address] | [place] [address] | | | PATHOLOGY | [address] [...] | | + +---------+ + + | [facility] DEPARTMENT OF | | | [...] + | [place] DEPARTMENT OF | [address] | [place] [address] | | | PATHOLOGY | [address] | | | + + + + + | [facility] DEPARTMENT OF | [address] | [place] [address] | | | PATHOLOGY | [address] [...] + + + + + | [facility] | [address] | [place] [address] | | | PATHOLOGY | [address] | | | + + + + + | [facility] | [address] | [place] [address] | | | PATHOLOGY | [address] [...] DEPARTMENT OF | [address] | [place] [address] | | | PATHOLOGY | [address] | | | + + + + + | [facility] DEPARTMENT OF | [address] | [place] [address] | | | PATHOLOGY | [address] [...] | + + + + + | [facility] DEPARTMENT OF | [address] | [place] [address] | | | PATHOLOGY | [address] | | | + + + + + | [facility] | [address] | [place] [address] | | | PATHOLOGY | [address] [...] | + + + + + | [facility] DEPARTMENT OF | [facility] | [place] [address] | | | PATHOLOGY | [address] | | | + + + + + | [place] DEPARTMENT OF | [facility] | [place] [address] | | | PATHOLOGY | [address] [...] | + + + + + | [facility] DEPARTMENT OF | [address] | [place] [address] | | | PATHOLOGY | [address] | | | + + + + + | [facility] DEPARTMENT OF | [facility] [facility] | [place] [address] | | | PATHOLOGY | [address] [...] DEPARTMENT OF | [address] | [place] [address] | | | PATHOLOGY | [address] | | | + + + + + | [facility] DEPARTMENT OF | [address] | [place] [address] | | | PATHOLOGY | [address] [...] + + + + + | [facility] | [address] | [facility] [place] [address] | | | PATHOLOGY | [address] | | | + + + + + | [facility] DEPARTMENT | [address] | [place] [address] | | | PATHOLOGY | [address] [...] + + + + + | [facility] | [address] | [place] [address] | | | PATHOLOGY | [address] | | | + + + + + | [facility] OF | [facility] | [place] [address] | | | PATHOLOGY | [address] [...] + + + | [facility] | [address] | [place] [address] | | | LAB-MICRO | | | [...] | | | | | performed at [facility] | | | | | | [facility] | | | | | | Laboratory. | | | | + + + + + + + + | Specimen | + + | | + + + + + + + | Performing | Address | City/State/Zipcode | Phone Number | | Organization | | | | + + + + + | [facility] | [address] | [place] [address] | | | LAB-MICRO | | | [...] + + + + + | [facility] | [address] | [place] [address] | | | PATHOLOGY | [address] | | | + + + + + | [facility] | [address] [place] [address] | [place] [address] | | | PATHOLOGY | [address] [...] | + + + + + | [facility] DEPARTMENT OF | [address] | [place] [address] | | | PATHOLOGY | [address] | | | + + + + + | [facility] | [address] | [place] [address] | | | PATHOLOGY | [address] [...] | | | | Test performed at [facility] | | | | | | [facility] | | | | | | Laboratory. | | | | + + + + + + + + | Specimen | + + | | + + + + + + + | Performing | Address | City/State/Zipcode | Phone Number | | Organization | | | | + + + + + | [facility] | [address] | [place] [address] | | | LAB-MICRO | | | [...] | | | | | performed at [facility] | | | | | | [facility] | | | | | | Laboratory. | | | | + + + + + + + + | Specimen | + + | | + + + + + + + | Performing | Address | City/State/Zipcode | Phone Number | | Organization | | | | + + + + + | [facility] | [address] | [place] [address] | | | LAB-MICRO | | | [...] | | | | | performed at [facility] | | | | | | [facility] | | | | | | Laboratory. | | | | + + + + + + + + | Specimen | + + | | + + + + + + + | Performing | Address | City/State/Zipcode | Phone Number | | Organization | | | | + + + + + | [facility] | [address] | [place] [address] | | | LAB-MICRO | | | [...] | + + + + + | [facility] DEPARTMENT OF | [address] | [place] [address] | | | PATHOLOGY | [address] | | | + + + + + | [facility] DEPARTMENT OF | [address] | [place] [address] | | | PATHOLOGY | [address] [...] + | [facility] DEPARTMENT OF | [address] | [place] [address] | | | PATHOLOGY | [address] | | | + + + + + | [place] DEPARTMENT OF | [address] | [place] [address] | | | PATHOLOGY | [address] | | | + + + + + MAGNESIUM, PLASMA (02/14/2006 2:05 AM PDT) + +-------+ + + + | Component | Value | Ref Range | Performed | Pathologist | | | | | At | Signature | + +-------+ + + + | MAGNESIUM,P | 2.2 | 1.8 - 2.5 mg/dL | [facility] | | | LASMA | | | [...] | + + + + + | [facility] DEPARTMENT OF | [address] | [place] [address] | | | PATHOLOGY | [address] | | | + + + + + | [facility] DEPARTMENT OF | [address] | [place] [address] | | | PATHOLOGY | [address] [...] DEPARTMENT OF | [address] | [place], [place] [address] | | | PATHOLOGY | [address] | | | + + + + + | [facility] DEPARTMENT OF | [address] | [place] [address] | | | PATHOLOGY | [address] [...] DEPARTMENT OF | [address] | [place] [address] | | | PATHOLOGY | [address] | | | + + + + + | [facility] DEPARTMENT OF | [address] | [place] [address] | | | PATHOLOGY | [address] [...] | + + + + + | [facility] DEPARTMENT OF | [address] | [place] [address] | | | PATHOLOGY | [address] | | | + + + + + | [facility] DEPARTMENT OF | [facility] | [place] [address] | | | PATHOLOGY | [address] [...] + + + + + | [facility] | [facility] | [place] [address] | | | PATHOLOGY | [address] | | | + + + + + | [facility] DEPARTMENT OF | [facility] | [place] [address] | | | PATHOLOGY | [address] [...] | + + + + + | [facility] DEPARTMENT OF | [address] | [place] [address] | | | PATHOLOGY | [address] | | | + + + + + | [place] DEPARTMENT OF | [address] | [place] [address] | | | PATHOLOGY | [address] [...] + + + + + | [facility] | [address] | [place] [address] | | | PATHOLOGY | [address] | | | + + + + + | [facility] | [address] | [place] [address] | | | PATHOLOGY | [address] [...] + + + + + | [facility] | [address] | [place] [address] | | | PATHOLOGY | [address] | | | + + + + + | [facility] | [address] | [place] [address] | | | PATHOLOGY | [address] [...] + + + + + | [facility] | [address] | [place] [address] | | | PATHOLOGY | [address] | | | + + + + + | [facility] | [address] | [place] [address] | | | PATHOLOGY | [address] [...] + + + + + | [facility] | [address] | [place] [address] | | | PATHOLOGY | [address] | | | + + + + + | [facility] | [address] | [place] [address] | | | PATHOLOGY | [address] [...] DEPARTMENT OF | [address] | [place] [address] | | | PATHOLOGY | [address] | | | + + + + + | [facility] DEPARTMENT OF | [address] | [place] [address] | | | PATHOLOGY | [address] [...] + + + + + | [facility] | [address] | [place] [address] | | | PATHOLOGY | [address] | | | + + + + + | [facility] | [address] | [place] [address] | | | PATHOLOGY | [address] [...] | | | | | performed at [facility] | | | | | | [facility] | | | | | | Laboratory. | | | | + + + + + + + + | Specimen | + + | | + + + + + + + | Performing | Address | City/State/Zipcode | Phone Number | | Organization | | | | + + + + + | [facility] | [address] | [place] [address] | | | LAB-MICRO | | | [...] | | | | | performed at [facility] | | | | | | [facility] | | | | | | Laboratory. | | | | + + + + + + + + | Specimen | + + | | + + + + + + + | Performing | Address | City/State/Zipcode | Phone Number | | Organization | | | | + + + + + | [facility] | [address] | [place] [address] | | | LAB-MICRO | | | [...] | | | | | performed at [facility] | | | | | | [facility] | | | | | | Laboratory. | | | | + + + + + + + + | Specimen | + + | | + + + + + + + | Performing | Address | City/State/Zipcode | Phone Number | | Organization | | | | + + + + + | [facility] | [address] | [place] [address] | | | LAB-MICRO | | | [...] | | | | | performed at [facility] | | | | | | [facility] | | | | | | Laboratory. | | | | + + + + + + + + | Specimen | + + | | + + + + + + + | Performing | Address | City/State/Zipcode | Phone Number | | Organization | | | | + + + + + | [facility] | [address] | [place] [address] | | | LAB-MICRO | | | [...] + + + + + | [facility] | [address] | [place] [address] | | | PATHOLOGY | [address] | | | + + + + + | [facility] | [address] | [place] [address] | | | PATHOLOGY | [address] [...] | + + + + + | [facility] DEPARTMENT OF | [address] | [place] [address] | | | PATHOLOGY | [address] | | | + + + + + | [facility] DEPARTMENT OF | [address] | [place] [address] | | | PATHOLOGY | [address] [...] | + + + + + | [facility] DEPARTMENT OF | [address] | [place] [address] | | | PATHOLOGY | [address] | | | + + + + + | [facility] DEPARTMENT OF | [address] | [place] [address] | | | PATHOLOGY | [address] [...] DEPARTMENT OF | [address] | [place] [address] | | | PATHOLOGY | [address] | | | + + + + + | [facility] DEPARTMENT OF | [address] | [facility] [place] [address] | | | PATHOLOGY | [address] [...] + + | [place] DEPARTMENT OF | [facility] [facility] | [place] [address] | | | PATHOLOGY | [address] | | | + + + + + | [facility] DEPARTMENT OF | [facility] [facility] [facility] | [place] [address] | | | PATHOLOGY | [address] [...] DEPARTMENT OF | [address] | [place] [address] | | | PATHOLOGY | [address] | | | + + + + + | [place] DEPARTMENT OF | [address] | [place] [address] | | | PATHOLOGY | [address] [...] | | + +---------+ + + | [facility] DEPARTMENT OF | | | [...] | | | | | | the D4rsqeuhh | | | | | | process. [...] | | + +---------+ + + | [facility] DEPARTMENT OF | | | [...] | | + +---------+ + + | [facility] DEPARTMENT OF | | | [...] + + + + + | [facility] | [address] | [place] [address] | | | PATHOLOGY | [address] | | | + + + + + | [facility] | [address] | [place] [address] | | | PATHOLOGY | [address] [...] | + + + + + | [facility] DEPARTMENT OF | [address] | [place] [address] | | | PATHOLOGY | [address] | | | + + + + + | [facility] DEPARTMENT OF | [address] | [place] [address] | | | PATHOLOGY | [address] [...] | + + + + + | [facility] DEPARTMENT OF | [address] | [place] [address] | | | PATHOLOGY | [address] | | | + + + + + | [facility] DEPARTMENT OF | [address] | [place] [address] | | | PATHOLOGY | [address] [...] | + + + + + | [facility] DEPARTMENT OF | [facility] | [place] [address] | | | PATHOLOGY | [address] | | | + + + + + | [facility] DEPARTMENT OF | [address] | [place] [address] | | | PATHOLOGY | [address] [...] | + + + + + | [facility] DEPARTMENT OF | [address] | [place] [address] | | | PATHOLOGY | [address] | | | + + + + + | [facility] DEPARTMENT OF | [address] | [place] [address] | | | PATHOLOGY | [address] [...] [facility] | | | | | | [facility] | | | | | | Laboratories. | | | | + + + + + + + + | Specimen | + + | | + + + + + + + | Performing | Address | City/State/Zipcode | Phone Number | | Organization | | | | + + + + + | [facility] | [address] | [place] [address] | | | LABORATORY | | | [...] at | | | | | | [facility] | | | | | | [facility]. | | | | + + + + + + + + | Specimen | + + | | + + + + + + + | Performing | Address | City/State/Zipcode | Phone Number | | Organization | | | | + + + + + | [facility] | [address] | [place] [address] | | | LAB-MICRO | | | [...] | | | | | performed at [facility] | | | | | | [facility] | | | | | | Laboratory. | | | | + + + + + + + + | Specimen | + + | | + + + + + + + | Performing | Address | City/State/Zipcode | Phone Number | | Organization | | | | + + + + + | [facility] | [address] | [place] [address] | | | LAB-MICRO | | | [...] | | | | | performed at [facility] | | | | | | [facility] | | | | | | Laboratory. | | | | + + + + + + + + | Specimen | + + | | + + + + + + + | Performing | Address | City/State/Zipcode | Phone Number | | Organization | | | | + + + + + | [facility] | [address] | [place] [address] | | | LAB-MICRO | | | [...] | | | | Test performed at [facility] | | | | | | [facility] | | | | | | Laboratory. | | | | + + + + + + + + | Specimen | + + | | + + + + + + + | Performing | Address | City/State/Zipcode | Phone Number | | Organization | | | | + + + + + | [facility] | [address] | [place] [address] | | | LAB-MICRO | | | [...] + + | Performing | Address | City/State/[facility] | Phone Number | | Organization | | | | + +---------+ + + | [facility] DEPARTMENT OF | | | [...] opacities | | | | | | cash posting representative of | | | | | [...] | + + + + + | [facility] DEPARTMENT OF | [facility] | [place] [address] | | | PATHOLOGY | [address] | | | + + + + + | [facility] DEPARTMENT OF | [address] | [place] [address] | | | PATHOLOGY | [address] [...] | + + + + + | [facility] DEPARTMENT OF | [address] | [place] [address] | | | PATHOLOGY | [address] | | | + + + + + | [place] DEPARTMENT OF | [address] | [place] [address] | | | PATHOLOGY | [address] [...] + + + + + | [facility] | [address] | [place] [address] | | | PATHOLOGY | [address] | | | + + + + + | [facility] | [address] | [place] [address] | | | PATHOLOGY | [address] [...] + | [facility] DEPARTMENT OF | [address] | [place] [address] | | | PATHOLOGY | [address] | | | + + + + + | [place] DEPARTMENT OF | [address] | [place] [address] | | | PATHOLOGY | [address] [...] DEPARTMENT OF | [address] | [place] [address] | | | PATHOLOGY | [address] | | | + + + + + | [place] DEPARTMENT OF | [address] | [place] [address] | | | PATHOLOGY | [address] [...] + + + + + | [facility] | [facility] [facility] | [place] [address] | | | PATHOLOGY | [address] | | | + + + + + | [facility] | [address] [place] [address] | [place] [address] | | | PATHOLOGY | [address] [...] | + + + + + | [facility] DEPARTMENT OF | [address] | [place] [address] | | | PATHOLOGY | [address] | | | + + + + + | [facility] | [address] | [place] [address] | | | PATHOLOGY | [address] [...] DEPARTMENT OF | [address] | [place] [address] | | | PATHOLOGY | [address] | | | + + + + + | [facility] DEPARTMENT | [address] | [place] [address] | | | PATHOLOGY | [address] | | | + + + + + MAGNESIUM, PLASMA (02/09/2006 11:38 PM PDT) + +---------+ + + + | Component | Value | Ref Range | Performed | Pathologist | | | | | At | Signature | + +---------+ + + + | MAGNESIUM,P | 1.5 (L) | 1.8 - 2.5 mg/dL | [facility] | | | LASMA | [...] | + + + + + | [facility] DEPARTMENT OF | [address] | [place] [address] | | | PATHOLOGY | [address] | | | + + + + + | [facility] OF | [facility] [facility] | [place] [address] | | | PATHOLOGY | [address] [...] DEPARTMENT OF | [address] | [place] [address] | | | PATHOLOGY | [address] | | | + + + + + | [place] DEPARTMENT OF | [address] | [place] [address] | | | PATHOLOGY | [address] [...] | + + + + + | [facility] DEPARTMENT OF | [address] | [place] [address] | | | PATHOLOGY | [address] | | | + + + + + | [facility] | [address] | [place] [address] | | | PATHOLOGY | [address] [...] | | | + +---------+ + + AO-TSFV-BMBT-DONT PROCESS (02/09/2006 9:16 PM PDT) + + [...] | + + + + + | [facility] DEPARTMENT OF | [address] | [place] [address] | | | PATHOLOGY | [address] | | | + + + + + | [place] DEPARTMENT OF | [address] | [place] [address] | | | PATHOLOGY | [address] [...] + + + + + | [facility] | [address] | [place] [address] | | | PATHOLOGY | [address] | | | + + + + + | [facility] | [address] | [place] [address] | | | PATHOLOGY | [address] [...] + + + + + | [facility] | [address] | [place] [address] | | | PATHOLOGY | [address] | | | + + + + + | [facility] | [address] | [place] [address] | | | PATHOLOGY | [address] [...] | + + + + + | [facility] DEPARTMENT OF | [address] | [place] [address] | | | PATHOLOGY | [address] | | | + + + + + | [facility] DEPARTMENT OF | [address] | [place] [address] | | | PATHOLOGY | [address] [...] + | [facility] DEPARTMENT OF | [address] | [place] [address] | | | PATHOLOGY | [address] | | | + + + + + | [facility] DEPARTMENT | [address] | [place] [address] | | | PATHOLOGY | [address] [...] | + + + + + | [facility] DEPARTMENT OF | [address] | [place] [address] | | | PATHOLOGY | [address] | | | + + + + + | [facility] DEPARTMENT OF | [address] | [place] [address] | | | PATHOLOGY | [address] [...] + + + + + | [facility] | [address] | [place] [address] | | | PATHOLOGY | [address] | | | + + + + + | [facility] | [address] | [place] [address] | | | PATHOLOGY | [address] | | | + + + + + documented in this encounter Visit Diagnoses Not on filedocumented in this encounter"
--- OUTSIDE RECORDS SUMMARY | ~2019-01-26 | XMS | Encounter Summary ---
Demographics + + + | Address | [address] | | | [place] [address] | + + + | Home Phone [...] [place], [place] | | | | | [address] | | + + + + + Care Team Providers + +------+ + | Care Financial Services Consultant Name | Role | Phone | + +------+ + PCP | Unavailable | + +------+ + Encounter Details +--------+ + + + + | Date | Type | Department | Care Team | Description | +--------+ + + + + | 03/04/ | Respiratory | | Other, Faculty | | | 2005 | Therapy | | [phone] | | +--------+ + + + + [...] + + + | [facility] | [address] | [place], [place] | | | DIAGNOSTICS - | [address] | [phone] | | | PULMONARY FUNCTION | | | | + + + + + documented in this encounter Visit Diagnoses Not on filedocumented in this encounter"
--- OUTSIDE RECORDS SUMMARY | ~2019-01-26 | XMS | Encounter Summary ---
Demographics + + + | Address | [address] | | | [place] [address] | + + + | Home Phone [...] [place], [place] | | | | | [address] | | + + + + + Care Team Providers + +------+ + | Care Attendance Officer Name | Role | Phone | + +------+ + PCP | Unavailable | + +------+ + Encounter Details +--------+ + + + + | Date | Type | Department | Care Team | Description | +--------+ + + + + | 02/28/ | Respiratory | | Other, Faculty | | | 2005 | Therapy | | [phone] | | +--------+ + + + + [...] | | | | | Noelle Rothman, SITE AUDITOR | | | | + + [...] [facility] | [address] | [place], [place] | | | DIAGNOSTICS - | [address] | [phone] | | | PULMONARY FUNCTION | | | | + + + + + documented in this encounter Visit Diagnoses Not on filedocumented in this encounter"
--- OUTSIDE RECORDS SUMMARY | ~2019-01-26 | XMS | Encounter Summary ---
Demographics + + + | Address | [address] | | | [place] [address] | + + + | Home Phone [...] [place], [place] | | | | | [address] | | + + + + + Care Team Providers + +------+ + | Care Parasitology Teacher Name | Role | Phone | + +------+ + PCP | Unavailable | + +------+ + Encounter Details +--------+ + + + + | Date | Type | Department | Care Team | Description | +--------+ + + + + | 02/27/ | Respiratory | | Other, Faculty | | | 2005 | Therapy | | [phone] | | +--------+ + + + + [...] [facility] | [address] | [place], [place] | | | DIAGNOSTICS - | [address] | [address] | | | PULMONARY FUNCTION | | | | + + + + + documented in this encounter Visit Diagnoses Not on filedocumented in this encounter"
--- OUTSIDE RECORDS SUMMARY | ~2019-01-26 | XMS | Encounter Summary ---
Demographics + + + | Address | [address] | | | [place] [address] | + + + | Home Phone [...] Yanni Antoine | ECON | [address] | | | | | [id number], [place] | | | | | [phone] | | + + + + + Care Team Providers + +------+ + | Care [employer] Manager Name | Role | Phone | + +------+ + PCP | Unavailable | + +------+ + Encounter Details +--------+ + + + + | Date | Type | Department | Care Team | Description | +--------+ + + + + | 03/13/ | Respiratory | | Other, Faculty | | | 2005 | Therapy | | [phone] | | +--------+ + + + + [...] | | | | Y |Yung Boss, SEXOLOGIST | | | | + + + [...] [facility] | [address] | [place], [place] | | | DIAGNOSTICS - | JOSEPHINE KUMAR | [phone] | | | PULMONARY FUNCTION | | | | + + + + + documented in this encounter Visit Diagnoses Not on filedocumented in this encounter"
--- OUTSIDE RECORDS SUMMARY | ~2019-01-26 | XMS | Encounter Summary ---
Demographics + + + | Address | [address] [facility] | | | [place] [address] | + + + | Home Phone [...] [place], [place] | | | | | [address] | | + + + + + Care Team Providers + +------+ + | Care Portuguese Tutor Name | Role | Phone | + +------+ + PCP | Unavailable | + +------+ + Encounter Details +--------+ + + + + | Date | Type | Department | Care Team | Description | +--------+ + + + + | 03/01/ | Respiratory | | Other, Faculty | | | 2005 | Therapy | | [phone] | | +--------+ + + + + [...] | | GAS/HUMIDIT | OXYGEN. Hayley Hinton CHIEF NURSING EXECUTIVE | | | | | Y |Hayley Hinton CHIEF NURSING EXECUTIVE | | | | + + [...] [facility] | [address] | [place], [place] | | | DIAGNOSTICS - | [address] | [address] | | | PULMONARY FUNCTION | | | | + + + + + documented in this encounter Visit Diagnoses Not on filedocumented in this encounter"
--- OUTSIDE RECORDS SUMMARY | ~2019-01-26 | XMS | Encounter Summary ---
Demographics + + + | Address | [address] [facility] | | | [place] [address] | + + + | Home Phone [...] [place], [place] | | | | | [address] | | + + + + + Care Team Providers + +------+ + | Care Director Of Tax Services Name | Role | Phone | + +------+ + PCP | Unavailable | + +------+ + Encounter Details +--------+ + + + + | Date | Type | Department | Care Team | Description | +--------+ + + + + | 03/18/ | Respiratory | | Other, Faculty | | | 2005 | Therapy | | [phone] | | +--------+ + + + + [...] | | | | | Y | BANJO REPAIRER | | | | + + [...] [facility] | [address] | [place] | | | DIAGNOSTICS - | [address] | [address] | | | PULMONARY FUNCTION | | | | + + + + + documented in this encounter Visit Diagnoses Not on filedocumented in this encounter"
--- OUTSIDE RECORDS SUMMARY | ~2019-01-26 | XMS | Encounter Summary ---
Demographics + + + | Address | [address] [facility] | | | [place] [address] | + + + | Home Phone [...] [place], [place] | | | | | [address] | | + + + + + Care Team Providers + +------+ + | Care Enterprise Systems Manager Name | Role | Phone | + +------+ + PCP | Unavailable | + +------+ + Encounter Details +--------+ + + + + | Date | Type | Department | Care Team | Description | +--------+ + + + + | 03/19/ | Respiratory | | Other, Faculty | | | 2005 | Therapy | | [phone] | | +--------+ + + + + [...] [facility] | [address] | [place], [place] | | | DIAGNOSTICS - | [address] | [address] | | | PULMONARY FUNCTION | | | | + + + + + documented in this encounter Visit Diagnoses Not on filedocumented in this encounter"
--- OUTSIDE RECORDS SUMMARY | ~2019-01-26 | XMS | Encounter Summary ---
Demographics + + + | Address | [address] [facility] | | | [place] [address] | + + + | Home Phone [...] [place], [place] | | | | | [address] | | + + + + + Care Team Providers + +------+ + | Care Monogram Operator Name | Role | Phone | + +------+ + PCP | Unavailable | + +------+ + Encounter Details +--------+ + + + + | Date | Type | Department | Care Team | Description | +--------+ + + + + | 02/21/ | Respiratory | | Other, Faculty | | | 2005 | Therapy | | [phone] | | +--------+ + + + + [...] | | | | Y | Afsaneh TELEGRAPH REPEATER TECHNICIAN | | | | + + [...] [facility] | [address] | [place], [place] | | | DIAGNOSTICS - | [address] | [address] | | | PULMONARY FUNCTION | | | | + + + + + documented in this encounter Visit Diagnoses Not on filedocumented in this encounter"
--- OUTSIDE RECORDS SUMMARY | ~2019-01-26 | XMS | Encounter Summary ---
Demographics + + + | Address | [address] [facility] | | | [place] [address] | + + + | Home Phone [...] [place], [place] | | | | | [address] | | + + + + + Care Team Providers + +------+ + | Care Live Source Operator Name | Role | Phone | + +------+ + PCP | Unavailable | + +------+ + Encounter Details +--------+ + + + + | Date | Type | Department | Care Team | Description | +--------+ + + + + | 03/20/ | Respiratory | | Other, Faculty | | | 2005 | Therapy | | [phone] | | +--------+ + + + + [...] [facility] | [address] | [place], [place] | | | DIAGNOSTICS - | [address] | [address] | | | PULMONARY FUNCTION | | | | + + + + + documented in this encounter Visit Diagnoses Not on filedocumented in this encounter"
--- OUTSIDE RECORDS SUMMARY | ~2019-01-26 | XMS | Encounter Summary ---
Demographics + + + | Address | [address] [facility] | | | [place] [address] | + + + | Home Phone [...] [place], [place] | | | | | [address] | | + + + + + Care Team Providers + +------+ + | Care Branch Rental Manager Name | Role | Phone | + +------+ + PCP | Unavailable | + +------+ + Encounter Details +--------+ + + + + | Date | Type | Department | Care Team | Description | +--------+ + + + + | 03/07/ | Respiratory | | Other, Faculty | | | 2005 | Therapy | | [phone] | | +--------+ + + + + [...] Howe, | | | | | | WORLD TRAVEL COUNSELOR | | | | + + + [...] [facility] | [address] | [place], [place] | | | DIAGNOSTICS - | [address] | [address] | | | PULMONARY FUNCTION | | | | + + + + + documented in this encounter Visit Diagnoses Not on filedocumented in this encounter"
--- OUTSIDE RECORDS SUMMARY | ~2019-01-26 | XMS | Encounter Summary ---
Demographics + + + | Address | [address] [facility] | | | [place] [address] | + + + | Home Phone [...] [place], [place] | | | | | [address] | | + + + + + Care Team Providers + +------+ + | Care Stab Setter And Driller Name | Role | Phone | + +------+ + PCP | Unavailable | + +------+ + Encounter Details +--------+ + + + + | Date | Type | Department | Care Team | Description | +--------+ + + + + | 03/04/ | Respiratory | | Other, Faculty | | | 2005 | Therapy | | [phone] | | +--------+ + + + + [...] + + + | [facility] | [address] | [place] | | | DIAGNOSTICS - | [address] | [address] | | | PULMONARY FUNCTION | | | | + + + + + documented in this encounter Visit Diagnoses Not on filedocumented in this encounter"
--- OUTSIDE RECORDS SUMMARY | ~2019-01-26 | XMS | Clinical Summary ---
Demographics + + + | Address | [address] [facility] | | | [place] [address] | + + + | Home Phone [...] [place], [place] | | | | | [address] | | + + + + + Care Team Providers + +------+ + | Care Circular Knitter Helper Name | Role | Phone | + +------+ + PP | Unavailable | + +------+ + Source Comments [facility] is fully live on both [facility] and [facility] Allergies Not on File Medications Not on [...] | | al/Fam | | 1965 | [phone] | [place], [place] | | | ernst | | | 4 (Home) | [address] | + +--------+ +--------+ + + | Odilon Antoine | Third | Self | [birth year] | | [address] | | | [employer] | | 1965 | [phone] | [place], [place] | | | Liabil | | | 4 (Home) | [address] | | | ity | | | | | + +--------+ +--------+ + +"
--- OUTSIDE RECORDS SUMMARY | ~2019-01-26 | XMS | Encounter Summary ---
Demographics + + + | Address | [address] [facility] | | | [place] [address] | + + + | Home Phone [...] [place], [place] | | | | | [address] | | + + + + + Care Team Providers + +------+ + | Care Commercial Service Technician Name | Role | Phone | [...] | Transcriptions | + + | Interface, Drama Critic In - 03/01/2006 2:08 AM PDT | | [id number] | | [id number] ASHLEY Peck [id number] | | | | Date: 02/19/2006 | | | | Attending Surgeon: Ranjit Dobson M.D. | | | | Ordnance Artificer Helper(s): Ángel Horne M.D. | | Frankie Miles [...] | | AWP / HS | | [id number] / [id number] / [id number] / [id number] | | | | | | | | | | | | Electronically signed by Ranjit Dobson 02-28-2006 04:32:41 PM | | [facility] Health[facility]: [id number], Account: [id number], DocSeq: [id number] | | Persuant to medicare and medicaid regulations, I was present for the | | critical portions of the procedure. | | Electronically signed by Ranjit Dobson 02-28-2006 04:33:37 PM | + + documented in this encounter Visit Diagnoses Not on filedocumented in this encounter"
--- OUTSIDE RECORDS SUMMARY | ~2019-01-26 | XMS | Encounter Summary ---
Demographics + + + | Address | [address] [facility] | | | [place] [address] | + + + | Home Phone [...] [place], [place] | | | | | [address] | | + + + + + Care Team Providers + +------+ + | Care Physician Assistant Surgery Name | Role | Phone | + +------+ + PCP | Unavailable | + +------+ + Encounter Details +--------+ + + + + | Date | Type | Department | Care Team | Description | +--------+ + + + + | 03/01/ | Respiratory | | Other, Faculty | | | 2005 | Therapy | | [phone] | | +--------+ + + + + [...] Rothman, | | | | | | DIRECTOR PART | | | | + + + [...] + + + | [facility] | [address] | [place], [place] | | | DIAGNOSTICS - | [address] | [address] | | | PULMONARY FUNCTION | | | | + + + + + documented in this encounter Visit Diagnoses Not on filedocumented in this encounter"
--- OUTSIDE RECORDS SUMMARY | ~2019-01-26 | XMS | Encounter Summary ---
Demographics + + + | Address | [address] [facility] | | | [place] [address] | + + + | Home Phone [...] [place], [place] | | | | | [address] | | + + + + + Care Team Providers + +------+ + | Care Coding Educator Name | Role | Phone | + +------+ + PCP | Unavailable | + +------+ + Encounter Details +--------+ + + + + | Date | Type | Department | Care Team | Description | +--------+ + + + + | 03/06/ | Respiratory | | Other, Faculty | | | 2005 | Therapy | | [phone] | | +--------+ + + + + [...] | | | | USE. Viridiana Yu, COPER HAND | | | | + + [...] [facility] | [address] | [place], [place] | | | DIAGNOSTICS - | [address] | [address] | | | PULMONARY FUNCTION | | | | + + + + + documented in this encounter Visit Diagnoses Not on filedocumented in this encounter"
--- OUTSIDE RECORDS SUMMARY | ~2019-01-26 | XMS | Encounter Summary ---
Demographics + + + | Address | [address] [facility] | | | [place] [address] | + + + | Home Phone [...] [place], [place] | | | | | [address] | | + + + + + Care Team Providers + +------+ + | Care Monkey Trainer Name | Role | Phone | + +------+ + PCP | Unavailable | + +------+ + Encounter Details +--------+ + + + + | Date | Type | Department | Care Team | Description | +--------+ + + + + | 02/21/ | Respiratory | | Other, Faculty | | | 2005 | Therapy | | [phone] | | +--------+ + + + + [...] + + + | [facility] | [address] | [place], [place] | | | DIAGNOSTICS - | [address] | [address] | | | PULMONARY FUNCTION | | | | + + + + + documented in this encounter Visit Diagnoses Not on filedocumented in this encounter"
--- OUTSIDE RECORDS SUMMARY | ~2019-01-26 | XMS | Encounter Summary ---
Demographics + + + | Address | [address] [facility] | | | [place] [address] | + + + | Home Phone [...] [place], [place] | | | | | [address] | | + + + + + Care Team Providers + +------+ + | Care Glass Grinder Name | Role | Phone | + +------+ + PCP | Unavailable | + +------+ + Encounter Details +--------+ + + + + | Date | Type | Department | Care Team | Description | +--------+ + + + + | 02/28/ | Respiratory | | Other, Faculty | | | 2005 | Therapy | | [phone] | | +--------+ + + + + [...] Rothman, | | | | | | CHILD ABUSE WORKER | | | | + + [...] + + + | [facility] | [address] | [place], [place] | | | DIAGNOSTICS - | [address] | [address] | | | PULMONARY FUNCTION | | | | + + + + + documented in this encounter Visit Diagnoses Not on filedocumented in this encounter"
--- OUTSIDE RECORDS SUMMARY | ~2019-01-26 | XMS | Encounter Summary ---
Demographics + + + | Address | [address] [facility] | | | [place] [address] | + + + | Home Phone | | + + + | Preferred Language | Unknown | + + + | Marital Status | | + + + | Islam Affiliation | NON | + + + | Race | White | + + + | Ethnic Group | Not or | + + + Author + + + | Author | [facility] | + + + | Organization | [facility] | + + + | Address | Unknown | + + + | Phone | Unavailable | + + + Support + + + + + | Name | Relationship | Address | Phone | + + + + + | Yanni Antoine | ECON | [address] | | | | | [place], [place] | | | | | [address] | | + + + + + Care Team Providers + +------+ + | Care Registered Nurse Bone Marrow Transplant Name | Role | Phone | + [...] [address] | | | | | [facility] | [facility] | | | | | [place], [place] | [place], [place] | | | | | [address] | [address] | | | | | | [phone] | | | | | | | [...] | | + +---------+ + + | [facility] DEPARTMENT OF | | | | [...] | | + +---------+ + + | [facility] DEPARTMENT OF | | | | [...] | | + +---------+ + + | [facility] DEPARTMENT OF | | | | [...] | | + +---------+ + + | [facility] DEPARTMENT OF | | | | [...] | | + +---------+ + + | [facility] DEPARTMENT OF | | | | | RADIOLOGY | | | | + +---------+ + + documented in this encounter Visit Diagnoses Not on filedocumented in this encounter"
--- OUTSIDE RECORDS SUMMARY | ~2019-01-26 | XMS | Encounter Summary ---
Demographics + + + | Address | [address] [facility] | | | [place] [address] | + + + | Home Phone [...] [place], [place] | | | | | [address] | | + + + + + Care Team Providers + +------+ + | Care Bad Work Gatherer Name | Role | Phone | + +------+ + PCP | Unavailable | + +------+ + Encounter Details +--------+ + + + + | Date | Type | Department | Care Team | Description | +--------+ + + + + | 02/26/ | Respiratory | | Other, Faculty | | | 2005 | Therapy | | [phone] | | +--------+ + + + + [...] [facility] | [address] | [place], [place] | | | DIAGNOSTICS - | [address] | [address] | | | PULMONARY FUNCTION | | | | + + + + + documented in this encounter Visit Diagnoses Not on filedocumented in this encounter"
--- OUTSIDE RECORDS SUMMARY | ~2019-01-26 | XMS | Encounter Summary ---
Demographics + + + | Address | [address] [facility] | | | [place] [address] | + + + | Home Phone [...] [place], [place] | | | | | [address] | | + + + + + Care Team Providers + +------+ + | Care Cosmetologist Apprentice Name | Role | Phone | + +------+ + PCP | Unavailable | + +------+ + Encounter Details +--------+ + + + + | Date | Type | Department | Care Team | Description | +--------+ + + + + | 03/17/ | Respiratory | | Other, Faculty | | | 2005 | Therapy | | [phone] | | +--------+ + + + + [...] | | | | | Y | SENIOR MARKETING DATA ANALYST | | | | + + [...] [facility] | [address] | [place] | | | DIAGNOSTICS - | [address] | [address] | | | PULMONARY FUNCTION | | | | + + + + + documented in this encounter Visit Diagnoses Not on filedocumented in this encounter"
--- OUTSIDE RECORDS SUMMARY | ~2019-01-26 | XMS | Encounter Summary ---
Demographics + + + | Address | [address] [facility] | | | [place] [address] | + + + | Home Phone [...] [place], [place] | | | | | [address] | | + + + + + Care Team Providers + +------+ + | Care Director Of Undergraduate Admissions Name | Role | Phone | + +------+ + PCP | Unavailable | + +------+ + Encounter Details +--------+ + + + + | Date | Type | Department | Care Team | Description | +--------+ + + + + | 03/10/ | Respiratory | | Other, Faculty | | | 2005 | Therapy | | [phone] | | +--------+ + + + + [...] | | | | | Y | RIPENING ROOM ATTENDANT | | | | + [...] [facility] | [address] | [place], [place] | | | DIAGNOSTICS - | [address] | [address] | | | PULMONARY FUNCTION | | | | + + + + + documented in this encounter Visit Diagnoses Not on filedocumented in this encounter"
--- OUTSIDE RECORDS SUMMARY | ~2019-01-26 | XMS | Encounter Summary ---
Demographics + + + | Address | [address] [facility] | | | [place] [address] | + + + | Home Phone [...] [place], [place] | | | | | [address] | | + + + + + Care Team Providers + +------+ + | Care Computed Tomography Technologist Name | Role | Phone | + +------+ + PCP | Unavailable | + +------+ + Encounter Details +--------+ + + + + | Date | Type | Department | Care Team | Description | +--------+ + + + + | 03/06/ | Respiratory | | Other, Faculty | | | 2005 | Therapy | | [phone] | | +--------+ + + + + [...] | | | | | | Beni, PUBLISHER ASSISTANT | | | | + + + [...] + + + | [facility] | [address] | [place] [place] [place] | | | DIAGNOSTICS - | [address] | [address] | | | PULMONARY FUNCTION | | | | + + + + + documented in this encounter Visit Diagnoses Not on filedocumented in this encounter"
--- OUTSIDE RECORDS SUMMARY | ~2019-01-26 | XMS | Encounter Summary ---
Demographics + + + | Address | [address] [facility] | | | [place] [address] | + + + | Home Phone [...] [place], [place] | | | | | [address] | | + + + + + Care Team Providers + +------+ + | Care Jailer/Training Officer Name | Role | Phone | + +------+ + PCP | Unavailable | + +------+ + Encounter Details +--------+ + + + + | Date | Type | Department | Care Team | Description | +--------+ + + + + | 02/22/ | Respiratory | | Other, Faculty | | | 2005 | Therapy | | [phone] | | +--------+ + + + + [...] [facility] | [address] | [place], [place] | | | DIAGNOSTICS - | [address] | [address] | | | PULMONARY FUNCTION | | | | + + + + + documented in this encounter Visit Diagnoses Not on filedocumented in this encounter"
--- OUTSIDE RECORDS SUMMARY | ~2019-01-26 | XMS | Encounter Summary ---
Demographics + + + | Address | [address] [facility] | | | [place] [address] | + + + | Home Phone [...] [place], [place] | | | | | [address] | | + + + + + Care Team Providers + +------+ + | Care Access Tech Name | Role | Phone | + +------+ + PCP | Unavailable | + +------+ + Encounter Details +--------+ + + + + | Date | Type | Department | Care Team | Description | +--------+ + + + + | 03/03/ | Respiratory | | Other, Faculty | | | 2005 | Therapy | | [phone] | | +--------+ + + + + [...] [facility] | [address] | [place], [place] | | | DIAGNOSTICS - | [address] | [address] | | | PULMONARY FUNCTION | | | | + + + + + documented in this encounter Visit Diagnoses Not on filedocumented in this encounter"
--- OUTSIDE RECORDS SUMMARY | ~2019-01-26 | XMS | Encounter Summary ---
Demographics + + + | Address | [address] [facility] | | | [place] [address] | + + + | Home Phone [...] [place], [place] | | | | | [address] | | + + + + + Care Team Providers + +------+ + | Care Roster Clerk Name | Role | Phone | + +------+ + PCP | Unavailable | + +------+ + Encounter Details +--------+ + + + + | Date | Type | Department | Care Team | Description | +--------+ + + + + | 03/04/ | Respiratory | | Other, Faculty | | | 2005 | Therapy | | [phone] | | +--------+ + + + + [...] | | | | | | Gabrielle Mca RCP | | | | + + [...] + + + | [facility] | [address] | [place], [place] | | | DIAGNOSTICS - | [address] | [address] | | | PULMONARY FUNCTION | | | | + + + + + documented in this encounter Visit Diagnoses Not on filedocumented in this encounter"
--- OUTSIDE RECORDS SUMMARY | ~2019-01-26 | XMS | Encounter Summary ---
Demographics + + + | Address | [address] [facility] | | | [place] [address] | + + + | Home Phone [...] [place], [place] | | | | | [address] | | + + + + + Care Team Providers + +------+ + | Care Weatherization Coordinator Name | Role | Phone | + +------+ + PCP | Unavailable | + +------+ + Encounter Details +--------+ + + + + | Date | Type | Department | Care Team | Description | +--------+ + + + + | 03/03/ | Respiratory | | Other, Faculty | | | 2005 | Therapy | | [phone] | | +--------+ + + + + [...] | | | | | | Glenn Carorll CAR PINCHER | | | | + + + [...] | DIAGNOSTICS - | [address] | [address] | | | PULMONARY FUNCTION | | | | + + + + + documented in this encounter Visit Diagnoses Not on filedocumented in this encounter"
--- OUTSIDE RECORDS SUMMARY | ~2019-01-26 | XMS | Encounter Summary ---
Demographics + + + | Address | [address] [facility] | | | [place] [address] | + + + | Home Phone [...] [place], [place] | | | | | [address] | | + + + + + Care Team Providers + +------+ + | Care Unix Manager Name | Role | Phone | + +------+ + PCP | Unavailable | + +------+ + Encounter Details +--------+ + + + + | Date | Type | Department | Care Team | Description | +--------+ + + + + | 03/02/ | Respiratory | | Other, Faculty | | | 2005 | Therapy | | [phone] | | +--------+ + + + + [...] | | | | | Y | WEB OPERATIONS MANAGER | | | | + + [...] | DIAGNOSTICS - | [address] | [address] | | | PULMONARY FUNCTION | | | | + + + + + documented in this encounter Visit Diagnoses Not on filedocumented in this encounter"
--- OUTSIDE RECORDS SUMMARY | ~2019-01-26 | XMS | Encounter Summary ---
Demographics + + + | Address | [address] [facility] | | | [place] [address] | + + + | Home Phone [...] [place], [place] | | | | | [address] | | + + + + + Care Team Providers + +------+ + | Care Radiologic Technician Name | Role | Phone | + +------+ + PCP | Unavailable | + +------+ + Encounter Details +--------+ + + + + | Date | Type | Department | Care Team | Description | +--------+ + + + + | 02/27/ | Respiratory | | Other, Faculty | | | 2005 | Therapy | | [phone] | | +--------+ + + + + [...] [facility] | [address] | [place], [place] | | | DIAGNOSTICS - | [address] | [address] | | | PULMONARY FUNCTION | | | | + + + + + documented in this encounter Visit Diagnoses Not on filedocumented in this encounter"
--- OUTSIDE RECORDS SUMMARY | ~2019-01-26 | XMS | Encounter Summary ---
Demographics + + + | Address | [address] [facility] | | | [place] [address] | + + + | Home Phone [...] [place], [place] | | | | | [address] | | + + + + + Care Team Providers + +------+ + | Care Bullard Operator Name | Role | Phone | + +------+ + PCP | Unavailable | + +------+ + Encounter Details +--------+ + + + + | Date | Type | Department | Care Team | Description | +--------+ + + + + | 03/09/ | Respiratory | | Other, Faculty | | | 2005 | Therapy | | [phone] | | +--------+ + + + + [...] | | | | OXYGEN. Madeline Whiting, FISHING TOOL SUPERVISOR | | | | + + [...] [facility] | [address] | [place], [place] | | | DIAGNOSTICS - | [address] | [address] | | | PULMONARY FUNCTION | | | | + + + + + documented in this encounter Visit Diagnoses Not on filedocumented in this encounter"
--- OUTSIDE RECORDS SUMMARY | ~2019-01-26 | XMS | Encounter Summary ---
Demographics + + + | Address | [address] [facility] | | | [place] [address] | + + + | Home Phone [...] [place], [place] | | | | | [address] | | + + + + + Care Team Providers + +------+ + | Care Operations Administrator Name | Role | Phone | + +------+ + PCP | Unavailable | + +------+ + Encounter Details +--------+ + + + + | Date | Type | Department | Care Team | Description | +--------+ + + + + | 03/05/ | Respiratory | | Other, Faculty | | | 2005 | Therapy | | [phone] | | +--------+ + + + + [...] | | GAS/HUMIDIT | OXYGEN. Viridiana Yu BAKERY TEAM MEMBER | | | | | Y |Viridiana Yu BAKERY TEAM MEMBER | | | | + + [...] [facility] | [address] | [place], [place] | | | DIAGNOSTICS - | [address] | [address] | | | PULMONARY FUNCTION | | | | + + + + + documented in this encounter Visit Diagnoses Not on filedocumented in this encounter"
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
[2019-01-26] MEDS ORDERED: NYSTATIN100000 UN1 PO (00:54)
== END 2019-01-26 01:02 | disposition home or self-care (01) ==
LOC: ED 00:30
DX: K14.0 Glossitis (principal); F17.200 Nicotine dependence, unspecified, uncomplicated
CPT/HCPCS: 99282

== ENCOUNTER 2019-01-28 22:09 | Emergency (ER) | payer OTHER ==
[~2019-01-28] VITALS: Ht 180.3 cm; Wt 70.3 kg
--- OUTSIDE RECORDS SUMMARY | ~2019-01-28 | XMS | Encounter Summary ---
Demographics + + + | Address | [address] | | | [place] [address] | + + + | Home Phone | | + + + | Preferred Language | Unknown | + + + | Marital Status | | + + + | Orthodox Affiliation | NON | + + + | Race | White | + + + | Ethnic Group | Not or | + + + Author + + + | Organization | Unknown | + + + | Address | Unknown | + + + | Phone | Unavailable | + + + Support + + + + + | Name | Relationship | Address | Phone | + + + + + | Yanni Antoine | ECON | [address] | | | | | [place], [place] | | | | | [address] | | + + + + + Care Team Providers + +------+ + | Care Cuff Setter Name | Role | Phone | + +------+ + PCP | Unavailable | + +------+ + Encounter Details +--------+ + + + + | Date | Type | Department | Care Team | Description | +--------+ + + + + | 03/02/ | Respiratory | | Other, Faculty | | | 2005 | Therapy | | [phone] | | +--------+ + + + + Social History + +-------+ +--------+------+ | Tobacco [...] on file | | + + + + + + + | Job Start Date | Occupation | Industry | + + + + | Not on file | Not on file | Not on file | + + + + + + + + | Travel History | Travel Start | Travel End | + + + + + + | No recent travel history available. | + + documented as of this encounter Plan of Treatment Not on filedocumented as of this encounter Procedures + +--------+ + + + | Procedure Name | Priori | Date/Time | Associated Diagnosis | Comments | | | ty | | | | + +--------+ + + + | MEDICAL GAS/HUMIDITY | Routin | 03/02/2006 | | Results for this | | | e | 3:36 AM | | procedure are in the | | | | PDT | | results section. | + +--------+ + + + documented in this encounter Results MEDICAL GAS/HUMIDITY (03/02/2006 3:36 AM PDT) + + + + + + | Component | Value | Ref Range | Performed | Pathologist | | | | | At | Signature | + + + + + + | [facility] | HEATED HUMIDITY AT 31 % | | | | | GAS/HUMIDIT | OXYGEN. Kashmir Dumont | | | | | Y | III, ENVIRONMENTAL SCIENTIST | | | | + + + + + + + + | Specimen | + + | | + + + + + | Narrative | Performed At | + + + | Ordered by an unspecified provider. | | + + + + + + + + | Performing | Address | City/State/Zipcode | Phone Number | | Organization | | | | + + + + + | [facility] | [address] | [place] | | | DIAGNOSTICS - | [address] | [address] | | | PULMONARY FUNCTION | | | | + + + + + documented in this encounter Visit Diagnoses Not on filedocumented in this encounter"
--- OUTSIDE RECORDS SUMMARY | ~2019-01-28 | XMS | Encounter Summary ---
Demographics + + + | Address | [address] | | | [place] [address] | + + + | Home Phone | | + + + | Preferred Language | Unknown | + + + | Marital Status | | + + + | Alevism Affiliation | NON | + + + [...] [place], [place] | | | | | [address] | | + + + + + Care Team Providers + +------+ + | Care Process Designer Name | Role | Phone | + +------+ + PCP | Unavailable | + +------+ + Encounter Details +--------+ + + + + | Date | Type | Department | Care Team | Description | +--------+ + + + + | 03/04/ | Respiratory | | Other, Faculty | | | 2005 | Therapy | | [phone] | | +--------+ + + + + [...] | + +--------+ + + + | ADULT AND SHRINERS | Routin | 03/04/2006 | | Results for this | | TREATMENTS | e | 4:30 PM | | procedure are in the | | | | PDT | | results section. | + +--------+ + + + documented in this encounter Results ADULT AND SHRINERS TREATMENTS (03/04/2006 4:30 PM PDT) + + + + + + | Component | Value | Ref Range | Performed | Pathologist | | | | | At | Signature | + + + + + + | [facility] | PATIENTS PAIN ASSESSED | | | | | TREATMENTS | AND WAS ONE ON A SCALE | | | | | | OF ZERO TO 10. | | | | | | SUCTIONED .CRACKLES . | | | | | | REQUIRES SUCTION: THICK | | | | | | WHITE SPUTUM. MODERATE | | | | | | IMPROVEMENTSAFTER | | | | | | TREATMENT Gabrielle Mac, | | | | | | STUCCO WORKER | | | | + + + [...] + + + + + | [facility] | [address] | [place], [place] | | | DIAGNOSTICS - | [address] | [address] | | | PULMONARY FUNCTION | | | | + + + + + documented in this encounter Visit Diagnoses Not on filedocumented in this encounter"
--- OUTSIDE RECORDS SUMMARY | ~2019-01-28 | XMS | Encounter Summary ---
Demographics + + + | Address | [address] | | | [place] [address] | + + + | Home Phone | | + + + | Preferred Language | Unknown | + + + | Marital Status | | + + + | Christian Affiliation | NON | + + + [...] [place], [place] | | | | | [address] | | + + + + + Care Team Providers + +------+ + | Care Tray Service Worker Name | Role | Phone | + +------+ + PCP | Unavailable | + +------+ + Encounter Details +--------+ + + + + | Date | Type | Department | Care Team | Description | +--------+ + + + + | 03/20/ | Respiratory | | Other, Faculty | | | 2005 | Therapy | | [phone] | | +--------+ + + + + [...] + | MEDICAL GAS/HUMIDITY | Routin | 03/20/2006 | | Results for this | | | e | 5:18 PM | | procedure are in the | | | | PDT | | results section. | + +--------+ + + + documented in this encounter Results MEDICAL GAS/HUMIDITY (03/20/2006 5:18 PM PDT) + + + + + + | Component | Value | Ref Range | Performed | Pathologist | | | | | At | Signature | + + + + + + | [facility] | OXYGEN OR HUMIDITY ON | | | | | GAS/HUMIDIT | STANDBY. Jeronimo Brown, | | | | | Y | COLLISION ESTIMATOR | | | | + + + [...] [facility] | [address] | [place], [place] | | | DIAGNOSTICS - | [address] | [address] | | | PULMONARY FUNCTION | | | | + + + + + documented in this encounter Visit Diagnoses Not on filedocumented in this encounter"
--- OUTSIDE RECORDS SUMMARY | ~2019-01-28 | XMS | Encounter Summary ---
Demographics + + + | Address | [address] | | | [place] [address] | + + + | Home Phone [...] [place], [place] | | | | | [address] | | + + + + + Care Team Providers + +------+ + | Care Registered Nurse Ambulatory Name | Role | Phone | + +------+ + PCP | Unavailable | + +------+ + Encounter Details +--------+ + + + + | Date | Type | Department | Care Team | Description | +--------+ + + + + | 03/03/ | Respiratory | | Other, Faculty | | | 2005 | Therapy | | [phone] | | +--------+ + + + + [...] | ADULT AND SHRINERS | Routin | 03/03/2006 | | Results for this | | TREATMENTS | e | 8:15 AM | | procedure are in the | | | | PDT | | results section. | + +--------+ + + + documented in this encounter Results ADULT AND SHRINERS TREATMENTS (03/03/2006 8:15 AM PDT) + + + + + + | Component | Value | Ref Range | Performed | Pathologist | | | | | At | Signature | + + + + + + | [facility] | PATIENTS PAIN ASSESSED | | | | | TREATMENTS | AND WAS TWO ON A SCALE | | | | | | OF ZERO TO 10. | | | | | | SUCTIONED .DIMINISHED | | | | | | BILATERAL . REQUIRES | | | | | | SUCTION: THIN HESTER | | | | | | SPUTUM. | | | | | | MODERATEIMPROVEMENTS | | | | | | AFTER TREATMENT Kenny | | | | | | [...] + | [facility] | [address] | [place] | | | DIAGNOSTICS - | [address] | [address] | | | PULMONARY FUNCTION | | | | + + + + + documented in this encounter Visit Diagnoses Not on filedocumented in this encounter"
--- OUTSIDE RECORDS SUMMARY | ~2019-01-28 | XMS | Encounter Summary ---
Demographics + + + | Address | [address] | | | [place] [address] | + + + | Home Phone | | + + + | Preferred Language | Unknown | + + + | Marital Status | | + + + | Synagogue Affiliation | NON | + + + [...] [place], [place] | | | | | [address] | | + + + + + Care Team Providers + +------+ + | Care Offset Lithographic Press Setter Name | Role | Phone | + +------+ + PCP | Unavailable | + +------+ + Encounter Details +--------+ + + + + | Date | Type | Department | Care Team | Description | +--------+ + + + + | 02/15/ | Office | | Note, Outpatient | Progress Note | | 2006 | Visit-Trans | | Clinic | | | | cribed | | | | +--------+ + + + + [...] + + documented as of this encounter Progress Notes Interface, Music Historian In - 02/19/2006 2:08 AM PDT [id number] ASHLEY Peck [id number] Clinic Date: 02/15/2006 Clinic: Operative Report Preoperative Diagnosis(es): 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 Procedure: Tracheostomy. Surgeon: Thai De La Garza M.D., Yasmin.A.CRamiroS. Indication: This patient has a severe brain injury. He has been unable to safely be weaned from the ventilator. I think we should proceed with the tracheostomy. His agreed and signed the informed consent. Findings: Normal trachea. Procedure: The patient's neck was palpated in a sterile fashion, keeping it in a neutral position, due to the fact that he has a cervical spine fracture. Transverse incision at above the sternum was made, carried down through the subcutaneous tissues. One large vein was ligated with 3-0 Vicryl. The trachea was exposed. The isthmus of the thyroid was divided with Bovie cautery. Traction sutures of 0 Tevdek were placed in the right and the left side. A tracheotomy between the first and second tracheal ring was made and carried down through the second ring. Tracheal dilator enabled us to look directly into the trachea. Under direct vision, the endotracheal tube was withdrawn. Thick secretions were suctioned out of the trachea, and a #8 Shiley was inserted. There was good return of CO2 and minimal bleeding. We suctioned the patient clear of secretions. His O2 saturations were 99% when we left the operating room. I was present for the entire procedure and in fact performed it. Thai De La Garza M.D., F.A.C.S. gis analyst developer @ internet manager Service [facility] / [id number] / [id number] / [phone] / [phone] documented i n this encounter Plan of Treatment Not on filedocumented as of this encounter Visit Diagnoses Not on filedocumented in this encounter"
--- OUTSIDE RECORDS SUMMARY | ~2019-01-28 | XMS | Encounter Summary ---
Demographics + + + | Address | [address] | | | [place] [address] | + + + | Home Phone [...] [place], [place] | | | | | [address] | | + + + + + Care Team Providers + +------+ + | Care Security Nurse Name | Role | Phone | + +------+ + PCP | Unavailable | + +------+ + Encounter Details +--------+ + + + + | Date | Type | Department | Care Team | Description | +--------+ + + + + | 03/01/ | Respiratory | | Other, Faculty | | | 2005 | Therapy | | [phone] | | +--------+ + + + + [...] | ADULT AND SHRINERS | Routin | 03/01/2006 | | Results for this | | TREATMENTS | e | 3:00 AM | | procedure are in the | | | | PDT | | results section. | + +--------+ + + + documented in this encounter Results ADULT AND SHRINERS TREATMENTS (03/01/2006 3:00 AM PDT) + + + + + [...] | | | | | | SUCTIONED .RHONCHI . | | | | | | REQUIRES SUCTION: THICK | | | | | | YELLOW SPUTUM. BREATH | | | | | | SOUNDS | | | | | | IMPROVED HEATED | | | | | | HUMIDITY AT 31 % OXYGEN. | | | | | | Noelle Rothman, | | | | | | TERRAZZO HELPER | | | | + + + [...] + + + | [facility] | [address] | [place], [place] | | | DIAGNOSTICS - | [address] | [address] | | | PULMONARY FUNCTION | | | | + + + + + documented in this encounter Visit Diagnoses Not on filedocumented in this encounter"
--- OUTSIDE RECORDS SUMMARY | ~2019-01-28 | XMS | Encounter Summary ---
Demographics + + + | Address | [address] | | | [place] [address] | + + + | Home Phone | | + + + | Preferred Language | Unknown | + + + | Marital Status | | + + + | Jew Affiliation | NON | + + + [...] [place], [place] | | | | | [address] | | + + + + + Care Team Providers + +------+ + | Care Manager Software Development Name | Role | Phone | + +------+ + PCP | Unavailable | + +------+ + Encounter Details +--------+ + + + + | Date | Type | Department | Care Team | Description | +--------+ + + + + | 03/02/ | Respiratory | | Other, Faculty | | | 2005 | Therapy | | [phone] | | +--------+ + + + + [...] | ADULT AND SHRINERS | Routin | 03/02/2006 | | Results for this | | TREATMENTS | e | 7:45 PM | | procedure are in the | | | | PDT | | results section. | + +--------+ + + + documented in this encounter Results ADULT AND SHRINERS TREATMENTS (03/02/2006 7:45 PM PDT) + + + + + + | Component | Value | Ref Range | Performed | Pathologist | | | | | At | Signature | + + + + + + | [facility] | BRONCHIAL HYGIENE | | | | | TREATMENTS | THERAPY NOT GIVEN. NOT | | | | | | INDICATED AT THIS TIME. | | | | | | Gela Sethi RCP | | | | + + + [...] [facility] | [address] | [place], [place] | | | DIAGNOSTICS - | [address] | [address] | | | PULMONARY FUNCTION | | | | + + + + + documented in this encounter Visit Diagnoses Not on filedocumented in this encounter"
--- OUTSIDE RECORDS SUMMARY | ~2019-01-28 | XMS | Encounter Summary ---
Demographics + + + | Address | [address] | | | [place] [address] | + + + | Home Phone [...] [place], [place] | | | | | [address] | | + + + + + Care Team Providers + +------+ + | Care Adhesive Bandage Making Operator Name | Role | Phone | + [...] | Transcriptions | + + | Interface, Dynamics Ax Solution Architect In - 03/08/2006 2:08 AM PDT | | [id number] | | [id number] ASHLEY Peck [phone] [id number] | | | | Date: 02/15/2006 | | | | Attending Surgeon: Thai De La Garza M.D., DeepthiCRamiroS. | | | | International Accounting Manager(s): Ángel Horne M.D. | | | | [...] De La Garza M.D., F.A.C.S. | | duralumin metalworker @ flamer sealer Service | | | | AWP / HS | | [phone] / [id number] / [phone] / | | | | | | | | | | | | Electronically signed by Thai De La Garza 03-07-2006 06:59:29 AM | + + documented in this encounter Visit Diagnoses Not on filedocumented in this encounter"
--- OUTSIDE RECORDS SUMMARY | ~2019-01-28 | XMS | Encounter Summary ---
Demographics + + + | Address | [address] | | | [place] [address] | + + + | Home Phone [...] [place], [place] | | | | | [address] | | + + + + + Care Team Providers + +------+ + | Care Accountant Supervisor Name | Role | Phone | + +------+ + PCP | Unavailable | + +------+ + Encounter Details +--------+ + + + + | Date | Type | Department | Care Team | Description | +--------+ + + + + | 03/11/ | Respiratory | | Other, Faculty | | | 2005 | Therapy | | [phone] | | +--------+ + + + + [...] + | MEDICAL GAS/HUMIDITY | Routin | 03/11/2006 | | Results for this | | | e | 6:04 AM | | procedure are in the | | | | PDT | | results section. | + +--------+ + + + documented in this encounter Results MEDICAL GAS/HUMIDITY (03/11/2006 6:04 AM PDT) + + + + + + | Component | Value | Ref Range | Performed | Pathologist | | | | | At | Signature | + + + + + + | [facility] | HEATED HUMIDITY AT 26 % | | | | | GAS/HUMIDIT | AFIA. Jeannette Oconnell, | | | | | Y | ENGINEER SERGEANT | | | | + + + [...] [facility] | [address] | [place], [place] | | | DIAGNOSTICS - | [address] | [address] | | | PULMONARY FUNCTION | | | | + + + + + documented in this encounter Visit Diagnoses Not on filedocumented in this encounter"
--- OUTSIDE RECORDS SUMMARY | ~2019-01-28 | XMS | Encounter Summary ---
Demographics + + + | Address | [address] | | | [place] [address] | + + + | Home Phone | | + + + | Preferred Language | Unknown | + + + | Marital Status | | + + + | Pentecostal Affiliation | NON | + + + [...] [place], [place] | | | | | [address] | | + + + + + Care Team Providers + +------+ + | Care Pattern Keeper Name | Role | Phone | + [...] | Transcriptions | + + | Interface, Fountain Manager In - 03/08/2006 2:08 AM PDT | | [id number] | | [id number] ASHLEY Peck [phone] | | | | Date: 02/15/2006 | | | | Attending Surgeon: Thai De La Garza M.D., DeepthiCRamiroS. | | | | Operations Manager Station(s): Ángel Horne M.D. | | | | [...] De La Garza M.D., F.A.C.S. | | house mover supervisor @ casino attendant Service | | | | AWP / HS | | [phone] / [phone] / [phone] / | | | | | | | | | | | | Electronically signed by Thai De La Garza 03-07-2006 06:59:29 AM | + + documented in this encounter Visit Diagnoses Not on filedocumented in this encounter"
--- OUTSIDE RECORDS SUMMARY | ~2019-01-28 | XMS | Encounter Summary ---
Demographics + + + | Address | [address] | | | [place] [address] | + + + | Home Phone | | + + + | Preferred Language | Unknown | + + + | Marital Status | | + + + | Muslim Affiliation | NON | + + + [...] [place], [place] | | | | | [address] | | + + + + + Care Team Providers + +------+ + | Care Oil Field Equipment Mechanic Supervisor Name | Role | Phone | + +------+ + PCP | Unavailable | + +------+ + Encounter Details +--------+ + + + + | Date | Type | Department | Care Team | Description | +--------+ + + + + | 03/17/ | Respiratory | | Other, Faculty | | | 2005 | Therapy | | [phone] | | +--------+ + + + + [...] + | MEDICAL GAS/HUMIDITY | Routin | 03/17/2006 | | Results for this | | | e | 4:28 PM | | procedure are in the | | | | PDT | | results section. | + +--------+ + + + documented in this encounter Results MEDICAL GAS/HUMIDITY (03/17/2006 4:28 PM PDT) + + + + + + | Component | Value | Ref Range | Performed | Pathologist | | | | | At | Signature | + + + + + + | [facility] | OXYGEN OR HUMIDITY ON | | | | | GAS/HUMIDIT | STANDBY. Delaney | | | | | Y | MARLENE Banks | | | | + + + [...] [facility] | [address] | [place], [place] | | | DIAGNOSTICS - | [address] | [address] | | | PULMONARY FUNCTION | | | | + + + + + documented in this encounter Visit Diagnoses Not on filedocumented in this encounter"
--- OUTSIDE RECORDS SUMMARY | ~2019-01-28 | XMS | Encounter Summary ---
Demographics + + + | Address | [address] | | | [place] [address] | + + + | Home Phone | | + + + | Preferred Language | Unknown | + + + | Marital Status | | + + + | Caodaism Affiliation | NON | + + + [...] [place], [place] | | | | | [address] | | + + + + + Care Team Providers + +------+ + | Care Helicopter Technician Name | Role | Phone | + +------+ + PCP | Unavailable | + +------+ + Encounter Details +--------+ + + + + | Date | Type | Department | Care Team | Description | +--------+ + + + + | 02/19/ | Respiratory | | Other, Faculty | | | 2005 | Therapy | | [phone] | | +--------+ + + + + [...] + | MEDICAL GAS/HUMIDITY | Routin | 02/19/2006 | | Results for this | | | e | 3:42 PM | | procedure are in the | | | | PDT | | results section. | + +--------+ + + + documented in this encounter Results MEDICAL GAS/HUMIDITY (02/19/2006 3:42 PM PDT) + + + + + + | Component | Value | Ref Range | Performed | Pathologist | | | | | At | Signature | + + + + + + | [facility] | HEATED HUMIDITY AT 40 % | | | | | GAS/HUMIDIT | OXYGEN. Rose Howe, | | | | | Y | BYPRODUCTS PUMP OPERATOR | | | | + + + [...] | DIAGNOSTICS - | [address] | [phone] | | | PULMONARY FUNCTION | | | | + + + + + documented in this encounter Visit Diagnoses Not on filedocumented in this encounter"
--- OUTSIDE RECORDS SUMMARY | ~2019-01-28 | XMS | Encounter Summary ---
Demographics + + + | Address | [address] | | | [place] [address] | + + + | Home Phone | | + + + | Preferred Language | Unknown | + + + | Marital Status | | + + + | Yazidism Affiliation | NON | + + + [...] [place], [place] | | | | | [address] | | + + + + + Care Team Providers + +------+ + | Care Stud Sheep Farmer Name | Role | Phone | + +------+ + PCP | Unavailable | + +------+ + Encounter Details +--------+ + + + + | Date | Type | Department | Care Team | Description | +--------+ + + + + | 02/27/ | Respiratory | | Other, Faculty | | | 2005 | Therapy | | [phone] | | +--------+ + + + + [...] | + +--------+ + + + | [facility] | Routin | 02/27/2006 | | Results for this | | | e | 5:00 PM | | procedure are in the | | | | PDT | | results section. | + +--------+ + + + documented in this encounter Results ARELY LARES (02/27/2006 5:00 PM PDT) + + + + + + | Component | Value | Ref Range | Performed | Pathologist | | | | | At | Signature | + + + + + + | [facility] | PATIENTS PAIN ASSESSED | | | | | ADULT | AND WAS ONE ON A SCALE | | | | | | OF ZERO TO 10. | | | | | | SUCTIONED .CRACKLES AND | | | | | | RHONCHI AND DIMINISHED . | | | | | | REQUIRES SUCTION: THICK | | | | | | YELLOWSPUTUM. | | | | | | SIGNIFICANT IMPROVEMENTS | | | | | | AFTER | | | | | | TREATMENT RESPIRA | | | | | | TORY CAREEVALUATION | | | | | | ADMISSION DIAGNOSIS: | | | | | | HEAD INJURY-TRAUMA | | | | | | . THE INITIAL | | | | | | RESPIRATORY CAREORDER IS | | | | | | FOR EVALUATE AND | | | | | | TREAT . PULMONARY | | | | | | HISTORY INCLUDES NONE | | | | | | . CURRENT PULMONARY | | | | | | PROBLEMS INCLUDE NONE | | | | | | . SMOKING | | | | | | HISTORY: UNKNOWN . . | | | | | | VITAL SIGNS:PATIENTS | | | | | | PAIN ASSESSED AND WAS | | | | | | ONE ON A SCALE OF ZERO | | | | | | TO 10. TEMP = | | | | | | 37.6 C, HR = 112 , RR | | | | | | = 18 , SaO2 | | | | | | = 96 % ON HEATED | | | | | | HUMIDITY AT31 % | | | | | | OXYGEN. REQUIRES | | | | | | SUCTION: THICK YELLOW | | | | | | SPUTUM. DIMINISHED | | | | | | CRACKLESAND RHONCHI | | | | | | . NORMAL, QUIET | | | | | | BREATHING . NOT | | | | | | AMBULATORY . NOT | | | | | | COOPERATIVE .SPUTUM | | | | | | CULTURES: POSITIVE | | | | | | . . CHEST IMAGING: | | | | | | NONE WITHIN 72 | | | | | | HOURS .THERAPEUTIC | | | | | | GOALS: MOBILIZE | | | | | | SECRETIONS IMPROVE | | | | | | OXYGENATION/VENTILATION | | | | | | .PLAN: BRONCHIAL | | | | | | HYGIENE THERAPY | | | | | | SUCTION BY RESPIRATORY | | | | | | CARE . NOBRONCHODI | | | | | | LATOR INDICATED. Gabrielle | | | | | | MARLENE Mac | | | | + + + [...] | + + + + + | [facility] | [address] | [place], [place] | | | DIAGNOSTICS - | [address] | [address] | | | PULMONARY FUNCTION | | | | + + + + + documented in this encounter Visit Diagnoses Not on filedocumented in this encounter"
--- OUTSIDE RECORDS SUMMARY | ~2019-01-28 | XMS | Encounter Summary ---
Demographics + + + | Address | [address] | | | [place] [address] | + + + | Home Phone | | + + + | Preferred Language | Unknown | + + + | Marital Status | | + + + | Sabianism Affiliation | NON | + + + [...] [place], [place] | | | | | [address] | | + + + + + Care Team Providers + +------+ + | Care Autobody Technician Name | Role | Phone | + +------+ + PCP | Unavailable | + +------+ + Encounter Details +--------+ + + + + | Date | Type | Department | Care Team | Description | +--------+ + + + + | 02/21/ | Respiratory | | Other, Faculty | | | 2005 | Therapy | | [phone] | | +--------+ + + + + [...] | [facility] | Routin | 02/21/2006 | | Results for this | | TREATMENTS | e | 9:15 PM | | procedure are in the | | | | PDT | | results section. | + +--------+ + + + documented in this encounter Results [facility] TREATMENTS (02/21/2006 9:15 PM PDT) + + + + + + | Component | Value | Ref Range | Performed | Pathologist | | | | | At | Signature | + + + + + + | [facility] | Bagged and suctioned. | | | | | TREATMENTS | PATIENTS PAIN ASSESSED | | | | | | AND WAS ZERO ON A SCALE | | | | | | OF ZERO TO 10. | | | | | | SUCTIONED . RHONCHI | | | | | | BILATERAL . REQUIRES | | | | | | SUCTION: THICK WHITE | | | | | | SPUTUM. BREATH | | | | | | SOUNDSIMPROVED Gela | | | | | | MARLENE Sethi | | | | + + + [...] + + + | [facility] | [address] | [place], [place] | | | DIAGNOSTICS - | [place] | [address] | | | PULMONARY FUNCTION | | | | + + + + + documented in this encounter Visit Diagnoses Not on filedocumented in this encounter"
--- OUTSIDE RECORDS SUMMARY | ~2019-01-28 | XMS | Encounter Summary ---
Demographics + + + | Address | [address] | | | [place] [address] | + + + | Home Phone [...] [place], [place] | | | | | [address] | | + + + + + Care Team Providers + +------+ + | Care Last Trimmer Name | Role | Phone | + +------+ + PCP | Unavailable | + +------+ + Encounter Details +--------+ + + + + | Date | Type | Department | Care Team | Description | +--------+ + + + + | 03/04/ | Respiratory | | Other, Faculty | | | 2005 | Therapy | | [phone] | | +--------+ + + + + [...] this | | TREATMENTS | e | 8:19 PM | | procedure are in the | | | | PDT | | results section. | + +--------+ + + + documented in this encounter Results [facility] TREATMENTS (03/04/2006 8:19 PM PDT) + + + + + [...] | | | | | SUCTIONED .RHONCHI | | | | | | BILATERAL . REQUIRES | | | | | | SUCTION: THICK CLEAR | | | | | | SPUTUM. BREATH | | | | | | SOUNDSIMPROVED Viridiana | | | | | | MARLENE Yu | | | | + + + [...] [facility] | [address] | [facility] [place] [place] | | | DIAGNOSTICS - | [place] | [address] | | | PULMONARY FUNCTION | | | | + + + + + documented in this encounter Visit Diagnoses Not on filedocumented in this encounter"
--- OUTSIDE RECORDS SUMMARY | ~2019-01-28 | XMS | Encounter Summary ---
Demographics + + + | Address | [address] | | | [place] [address] | + + + | Home Phone [...] [place], [place] | | | | | [address] | | + + + + + Care Team Providers + +------+ + | Care Launch Engineer Name | Role | Phone | + +------+ + PCP | Unavailable | + +------+ + Encounter Details +--------+ + + + + | Date | Type | Department | Care Team | Description | +--------+ + + + + | 02/27/ | Respiratory | | Other, Faculty | | | 2005 | Therapy | | [phone] | | +--------+ + + + + [...] [facility] | [address] | [place], [place] | | | DIAGNOSTICS - | [place] | [address] | | | PULMONARY FUNCTION | | | | + + + + + documented in this encounter Visit Diagnoses Not on filedocumented in this encounter"
--- OUTSIDE RECORDS SUMMARY | ~2019-01-28 | XMS | Encounter Summary ---
Demographics + + + | Address | [address] | | | [place] [address] | + + + | Home Phone | | + + + | Preferred Language | Unknown | + + + | Marital Status | | + + + | Adventism Affiliation | NON | + + + [...] [place], [place] | | | | | [address] | | + + + + + Care Team Providers + +------+ + | Care Customer Business Manager Name | Role | Phone | + [...] | Transcriptions | + + | Interface, Distribution Spec In - 03/01/2006 2:08 AM PDT | | [id number] | | [id number] ASHLEY Peck [id number] | | | | Date: 02/19/2006 | | | | Attending Surgeon: Ranjit Dobson M.D. | | | | Urologic Nurse(s): Ángel Horne M.D. | | Frankie Miles [...] | | AWP / HS | | [id number] / [id number] / [id number] / [id number] | | | | | | | | | | | | Electronically signed by Ranjit Dobson 02-28-2006 04:32:41 PM | | [id number] Account: [id number], DocSeq: [id number] | | Persuant to medicare and medicaid regulations, I was present for the | | critical portions of the procedure. | | Electronically signed by Ranjit Dobson 02-28-2006 04:33:37 PM | + + documented in this encounter Visit Diagnoses Not on filedocumented in this encounter"
--- OUTSIDE RECORDS SUMMARY | ~2019-01-28 | XMS | Encounter Summary ---
Demographics + + + | Address | [address] | | | [place] [address] | + + + | Home Phone [...] [place], [place] | | | | | [address] | | + + + + + Care Team Providers + +------+ + | Care Infrastructure Project Manager Name | Role | Phone | + +------+ + PCP | Unavailable | + +------+ + Encounter Details +--------+ + + + + | Date | Type | Department | Care Team | Description | +--------+ + + + + | 03/04/ | Respiratory | | Other, Faculty | | | 2005 | Therapy | | [phone] | | +--------+ + + + + [...] + + | DIAGNOSTICS | Routin | 03/04/2006 | | Results for this | | | e | 2:37 AM | | procedure are in the | | | | PDT | | results section. | + +--------+ + + + documented in this encounter Results DIAGNOSTICS (03/04/2006 2:37 AM PDT) + + + + + + | Component | Value | Ref Range | Performed | Pathologist | | | | | At | Signature | + + + + + + | RC | PATIENTS PAIN ASSESSED | | | | | DIAGNOSTICS | AND WAS ZERO ON A SCALE | | | | | | OF ZERO TO 10. | | | | | | CONTINUOUSPULSE OXIMETRY | | | | | | IN USE. Hank Vora, | | | | | | DRY CLIPPER TENDER | | | | + + + [...] [facility] | [address] | [place], [place] | | | DIAGNOSTICS - | [place] | [address] | | | PULMONARY FUNCTION | | | | + + + + + documented in this encounter Visit Diagnoses Not on filedocumented in this encounter"
--- OUTSIDE RECORDS SUMMARY | ~2019-01-28 | XMS | Encounter Summary ---
Demographics + + + | Address | [address] | | | [place] [address] | + + + | Home Phone | | + + + | Preferred Language | Unknown | + + + | Marital Status | | + + + | Islam Affiliation | NON | + + + [...] [place], [place] | | | | | [address] | | + + + + + Care Team Providers + +------+ + | Care Supervisor Bindery Name | Role | Phone | + +------+ + PCP | Unavailable | + +------+ + Encounter Details +--------+ + + + + | Date | Type | Department | Care Team | Description | +--------+ + + + + | 02/21/ | Respiratory | | Other, Faculty | | | 2005 | Therapy | | [phone] | | +--------+ + + + + [...] + + + | [facility] | [address] | [place], [place] | | | DIAGNOSTICS - | [place] | [address] | | | PULMONARY FUNCTION | | | | + + + + + documented in this encounter Visit Diagnoses Not on filedocumented in this encounter"
--- OUTSIDE RECORDS SUMMARY | ~2019-01-28 | XMS | Encounter Summary ---
Demographics + + + | Address | [address] | | | [place] [address] | + + + | Home Phone [...] [place], [place] | | | | | [address] | | + + + + + Care Team Providers + +------+ + | Care Digital Marketing Associate Name | Role | Phone | + +------+ + PCP | Unavailable | + +------+ + Encounter Details +--------+ + + + + | Date | Type | Department | Care Team | Description | +--------+ + + + + | 03/13/ | Respiratory | | Other, Faculty | | | 2005 | Therapy | | [phone] | | +--------+ + + + + [...] | | | | Y |Yung Boss, SPORTING GOODS SALESPERSON | | | | + + + [...] [facility] | [address] | [place], [place] | | | DIAGNOSTICS - | [place] | [address] | | | PULMONARY FUNCTION | | | | + + + + + documented in this encounter Visit Diagnoses Not on filedocumented in this encounter"
--- OUTSIDE RECORDS SUMMARY | ~2019-01-28 | XMS | Encounter Summary ---
Demographics + + + | Address | [address] | | | [place] [address] | + + + | Home Phone | | + + + | Preferred Language | Unknown | + + + | Marital Status | | + + + | Buddhism Affiliation | NON | + + + | Race | White | + + + | Ethnic Group | Not or | + + + Author + + + | Author | [facility] | + + + | Organization | [facility] | + + + | Address | Unknown | + + + | Phone | Unavailable | + + + Support + + + + + | Name | Relationship | Address | Phone | + + + + + | Yanni Antoine | ECON | [address] | | | | | [id number], [place] | | | | | [address] | | + + + + + Care Team Providers + +------+ + | Care Laundry Washer Name | Role | Phone | + +------+ + PCP | Unavailable | + +------+ + Encounter Details +--------+ + + + + | Date | Type | Department | Care Team | Description | +--------+ + + + + | 02/09/ | Hospital | Registration [address]181 | [place], | | | 2006 | Activity | Neville Dumont | MD [address] | | | | | [facility] Mailcode: | [address] | | | | | [id number] [place], [place] | [place], [place] | | | | | [address] | [address] | | | | | [phone] | [phone] | | | | | | | | +--------+ + + [...] as of this encounter Plan of Treatment + +---------+--------+ + + | Name | Type | Priori | Associated Diagnoses | Date/Time | | | | ty | | | + +---------+--------+ + + | BASIC METABOLIC SET | Lab | Urgent | | 02/09/2006 8:54 PM | | | | | | PDT | + +---------+--------+ + + | CK | Lab | Urgent | | 02/09/2006 8:54 PM | | | | | | PDT | + +---------+--------+ + + | RX-VBAP-QEEA-DONT | Lab | Routin | | 02/09/2006 9:16 PM | | PROCESS | | e | | PDT | + +---------+--------+ + + | SHOULDER 3+ VIEWS | Imaging | Priori | | 03/28/2006 2:05 PM | | RIGHT | | ty | | PDT | + +---------+--------+ + + documented as of this encounter Procedures + +--------+ + + + | Procedure Name | Priori | Date/Time | Associated Diagnosis | Comments | | | ty | | | | + +--------+ + + + | X-RAY SHOULDER 3+ | Routin | 03/29/2006 | | Results for this | | VIEWS RIGHT | e | 2:53 PM | | procedure are in the | | | | PDT | | results section. | + +--------+ + + + | PREALBUMIN, SERUM | Routin | 03/29/2006 | | Results for this | | | e | 12:40 PM | | procedure are in the | | | | PDT | | results section. | + +--------+ + + + | BASIC METABOLIC SET | Routin | 03/29/2006 | | Results for this | | (NA, K, CL, TCO2, | e | 12:40 PM | | procedure are in the | | BUN, CR, GLU, CA) | | PDT | | results section. | + +--------+ + + + | X-RAY CLAVICLE | Priori | 03/28/2006 | | Results for this | | BILATERAL | ty | 2:49 PM | | procedure are in the | | | | PDT | | results section. | + +--------+ + + + | X-RAY SPINE CERVICAL | Priori | 03/26/2006 | | Results for this | | 2 VIEWS | ty | 1:35 PM | | procedure are in the | | | | PDT | | results section. | + +--------+ + + + | C. DIFFICILE TOXIN, | Routin | 03/23/2006 | | Results for this | | W/REFLEX | e | 9:00 AM | | procedure are in the | | CONFIRMATION IF | | PDT | | results section. | | INDETERMINATE | | | | | | RESULTS | | | | | + +--------+ + + + | C. DIFFICILE TOXIN, | Routin | 03/23/2006 | | Results for this | | W/REFLEX | e | 9:00 AM | | procedure are in the | | CONFIRMATION IF | | PDT | | results section. | | INDETERMINATE | | | | | | RESULTS | | | | | + +--------+ + + + | X-RAY ABDOMEN 1 VIEW | Urgent | 03/23/2006 | | Results for this | | | | 12:43 AM | | procedure are in the | | | | PDT | | results section. | + +--------+ + + + | DIFFERENTIAL | Routin | 03/22/2006 | | Results for this | | | e | 9:35 AM | | procedure are in the | | | | PDT | | results section. | + +--------+ + + + | CBC, WITH | Routin | 03/22/2006 | | Results for this | | DIFFERENTIAL | e | 9:35 AM | | procedure are in the | | | | PDT | | results section. | + +--------+ + + + | BASIC METABOLIC SET | Routin | 03/22/2006 | | Results for this | | (NA, K, CL, TCO2, | e | 9:35 AM | | procedure are in the | | BUN, CR, GLU, CA) | | PDT | | results section. | + +--------+ + + + | BASIC METABOLIC SET | Routin | 03/19/2006 | | Results for this | | (NA, K, CL, TCO2, | e | 7:05 AM | | procedure are in the | | BUN, CR, GLU, CA) | | PDT | | results section. | + +--------+ + + + | CBC ONLY | Routin | 03/19/2006 | | Results for this | | | e | 7:05 AM | | procedure are in the | | | | PDT | | results section. | + +--------+ + + + | C. DIFFICILE TOXIN, | Routin | 03/17/2006 | | Results for this | | W/REFLEX | e | 5:00 PM | | procedure are in the | | CONFIRMATION IF | | PDT | | results section. | | INDETERMINATE | | | | | | RESULTS | | | | | + +--------+ + + + | C. DIFFICILE TOXIN, | Routin | 03/17/2006 | | Results for this | | W/REFLEX | e | 10:00 AM | | procedure are in the | | CONFIRMATION IF | | PDT | | results section. | | INDETERMINATE | | | | | | RESULTS | | | | | + +--------+ + + + | PREALBUMIN, SERUM | Routin | 03/15/2006 | | Results for this | | | e | 7:00 AM | | procedure are in the | | | | PDT | | results section. | + +--------+ + + + | BASIC METABOLIC SET | Routin | 03/15/2006 | | Results for this | | (NA, K, CL, TCO2, | e | 7:00 AM | | procedure are in the | | BUN, CR, GLU, CA) | | PDT | | results section. | + +--------+ + + + | CBC ONLY | Routin | 03/15/2006 | | Results for this | | | e | 7:00 AM | | procedure are in the | | | | PDT | | results section. | + +--------+ + + + | BASIC METABOLIC SET | Routin | 03/07/2006 | | Results for this | | (NA, K, CL, TCO2, | e | 6:35 AM | | procedure are in the | | BUN, CR, GLU, CA) | | PDT | | results section. | + +--------+ + + + | PHOSPHORUS, PLASMA | Routin | 03/07/2006 | | Results for this | | | e | 6:35 AM | | procedure are in the | | | | PDT | | results section. | + +--------+ + + + | MAGNESIUM, PLASMA | Routin | 03/07/2006 | | Results for this | | | e | 6:35 AM | | procedure are in the | | | | PDT | | results section. | + +--------+ + + + | CBC ONLY | Routin | 03/07/2006 | | Results for this | | | e | 6:00 AM | | procedure are in the | | | | PDT | | results section. | + +--------+ + + + | C. DIFFICILE TOXIN, | Routin | 03/05/2006 | | Results for this | | W/REFLEX | e | 6:30 PM | | procedure are in the | | CONFIRMATION IF | | PDT | | results section. | | INDETERMINATE | | | | | | RESULTS | | | | | + +--------+ + + + | C. DIFFICILE TOXIN, | Routin | 03/05/2006 | | Results for this | | W/REFLEX | e | 4:30 PM | | procedure are in the | | CONFIRMATION IF | | PDT | | results section. | | INDETERMINATE | | | | | | RESULTS | | | | | + +--------+ + + + | C. DIFFICILE TOXIN, | Routin | 03/05/2006 | | Results for this | | W/REFLEX | e | 2:15 PM | | procedure are in the | | CONFIRMATION IF | | PDT | | results section. | | INDETERMINATE | | | | | | RESULTS | | | | | + +--------+ + + + | BASIC METABOLIC SET | Routin | 03/04/2006 | | Results for this | | (NA, K, CL, TCO2, | e | 7:05 AM | | procedure are in the | | BUN, CR, GLU, CA) | | PDT | | results section. | + +--------+ + + + | CBC ONLY | Routin | 03/04/2006 | | Results for this | | | e | 7:05 AM | | procedure are in the | | | | PDT | | results section. | + +--------+ + + + | PHOSPHORUS, PLASMA | Routin | 03/04/2006 | | Results for this | | | e | 7:05 AM | | procedure are in the | | | | PDT | | results section. | + +--------+ + + + | MAGNESIUM, PLASMA | Routin | 03/04/2006 | | Results for this | | | e | 7:05 AM | | procedure are in the | | | | PDT | | results section. | + +--------+ + + + | CBC ONLY | Routin | 03/03/2006 | | Results for this | | | e | 6:45 AM | | procedure are in the | | | | PDT | | results section. | + +--------+ + + + | BASIC METABOLIC SET | Routin | 03/02/2006 | | Results for this | | (NA, K, CL, TCO2, | e | 6:55 AM | | procedure are in the | | BUN, CR, GLU, CA) | | PDT | | results section. | + +--------+ + + + | CBC ONLY | Routin | 03/02/2006 | | Results for this | | | e | 6:55 AM | | procedure are in the | | | | PDT | | results section. | + +--------+ + + + | PHOSPHORUS, PLASMA | Routin | 03/02/2006 | | Results for this | | | e | 6:55 AM | | procedure are in the | | | | PDT | | results section. | + +--------+ + + + | MAGNESIUM, PLASMA | Routin | 03/02/2006 | | Results for this | | | e | 6:55 AM | | procedure are in the | | | | PDT | | results section. | + +--------+ + + + | BASIC METABOLIC SET | Routin | 02/27/2006 | | Results for this | | (NA, K, CL, TCO2, | e | 6:36 AM | | procedure are in the | | BUN, CR, GLU, CA) | | PDT | | results section. | + +--------+ + + + | CBC ONLY | Routin | 02/27/2006 | | Results for this | | | e | 6:36 AM | | procedure are in the | | | | PDT | | results section. | + +--------+ + + + | PHOSPHORUS, PLASMA | Routin | 02/27/2006 | | Results for this | | | e | 6:36 AM | | procedure are in the | | | | PDT | | results section. | + +--------+ + + + | MAGNESIUM, PLASMA | Routin | 02/27/2006 | | Results for this | | | e | 6:36 AM | | procedure are in the | | | | PDT | | results section. | + +--------+ + + + | BASIC METABOLIC SET | Routin | 02/25/2006 | | Results for this | | (NA, K, CL, TCO2, | e | 6:36 AM | | procedure are in the | | BUN, CR, GLU, CA) | | PDT | | results section. | + +--------+ + + + | CBC ONLY | Routin | 02/25/2006 | | Results for this | | | e | 6:36 AM | | procedure are in the | | | | PDT | | results section. | + +--------+ + + + | PHOSPHORUS, PLASMA | Routin | 02/25/2006 | | Results for this | | | e | 6:36 AM | | procedure are in the | | | | PDT | | results section. | + +--------+ + + + | MAGNESIUM, PLASMA | Routin | 02/25/2006 | | Results for this | | | e | 6:36 AM | | procedure are in the | | | | PDT | | results section. | + +--------+ + + + | X-RAY CHEST 1 VIEW | Routin | 02/24/2006 | | Results for this | | | e | 12:36 PM | | procedure are in the | | | | PDT | | results section. | + +--------+ + + + | DIFFERENTIAL | Routin | 02/23/2006 | | Results for this | | | e | 9:05 AM | | procedure are in the | | | | PDT | | results section. | + +--------+ + + + | SLIDE REVIEW | Routin | 02/23/2006 | | Results for this | | | e | 9:05 AM | | procedure are in the | | | | PDT | | results section. | + +--------+ + + + | CBC, WITH | Routin | 02/23/2006 | | Results for this | | DIFFERENTIAL | e | 9:05 AM | | procedure are in the | | | | PDT | | results section. | + +--------+ + + + | BASIC METABOLIC SET | Routin | 02/23/2006 | | Results for this | | (NA, K, CL, TCO2, | e | 9:05 AM | | procedure are in the | | BUN, CR, GLU, CA) | | PDT | | results section. | + +--------+ + + + | PHOSPHORUS, PLASMA | Routin | 02/23/2006 | | Results for this | | | e | 9:05 AM | | procedure are in the | | | | PDT | | results section. | + +--------+ + + + | MAGNESIUM, PLASMA | Routin | 02/23/2006 | | Results for this | | | e | 9:05 AM | | procedure are in the | | | | PDT | | results section. | + +--------+ + + + | BASIC METABOLIC SET | Routin | 02/22/2006 | | Results for this | | (NA, K, CL, TCO2, | e | 6:20 AM | | procedure are in the | | BUN, CR, GLU, CA) | | PDT | | results section. | + +--------+ + + + | CBC ONLY | Routin | 02/22/2006 | | Results for this | | | e | 6:20 AM | | procedure are in the | | | | PDT | | results section. | + +--------+ + + + | VANCOMYCIN, TROUGH | Routin | 02/21/2006 | | Results for this | | | e | 6:30 PM | | procedure are in the | | | | PDT | | results section. | + +--------+ + + + | POTASSIUM, PLASMA | Urgent | 02/21/2006 | | Results for this | | | | 9:45 AM | | procedure are in the | | | | PDT | | results section. | + +--------+ + + + | X-RAY CHEST 1 VIEW | Routin | 02/21/2006 | | Results for this | | | e | 7:14 AM | | procedure are in the | | | | PDT | | results section. | + +--------+ + + + | BASIC METABOLIC SET | Urgent | 02/21/2006 | | Results for this | | (NA, K, CL, TCO2, | | 3:20 AM | | procedure are in the | | BUN, CR, GLU, CA) | | PDT | | results section. | + +--------+ + + + | CBC ONLY | Urgent | 02/21/2006 | | Results for this | | | | 3:20 AM | | procedure are in the | | | | PDT | | results section. | + +--------+ + + + | PHOSPHORUS, PLASMA | Urgent | 02/21/2006 | | Results for this | | | | 3:20 AM | | procedure are in the | | | | PDT | | results section. | + +--------+ + + + | MAGNESIUM, PLASMA | Urgent | 02/21/2006 | | Results for this | | | | 3:20 AM | | procedure are in the | | | | PDT | | results section. | + +--------+ + + + | VANCOMYCIN, TROUGH | Urgent | 02/20/2006 | | Results for this | | | | 8:45 AM | | procedure are in the | | | | PDT | | results section. | + +--------+ + + + | X-RAY CHEST VIEW | Specif | 02/20/2006 | | Results for this | | | ic | 5:30 AM | | procedure are in the | | | (Rad | PDT | | results section. | | | orders | | | | | | only) | | | | + +--------+ + + + | BASIC METABOLIC SET | Urgent | 02/20/2006 | | Results for this | | (NA, K, CL, TCO2, | | 3:15 AM | | procedure are in the | | BUN, CR, GLU, CA) | | PDT | | results section. | + +--------+ + + + | CBC ONLY | Urgent | 02/20/2006 | | Results for this | | | | 3:15 AM | | procedure are in the | | | | PDT | | results section. | + +--------+ + + + | PHOSPHORUS, PLASMA | Urgent | 02/20/2006 | | Results for this | | | | 3:15 AM | | procedure are in the | | | | PDT | | results section. | + +--------+ + + + | MAGNESIUM, PLASMA | Urgent | 02/20/2006 | | Results for this | | | | 3:15 AM | | procedure are in the | | | | PDT | | results section. | + +--------+ + + + | POTASSIUM, PLASMA | Urgent | 02/19/2006 | | Results for this | | | | 8:00 PM | | procedure are in the | | | | PDT | | results section. | + +--------+ + + + | X-RAY CHEST 1 VIEW | Routin | 02/19/2006 | | Results for this | | | e | 2:13 PM | | procedure are in the | | | | PDT | | results section. | + +--------+ + + + | BASIC METABOLIC SET | Urgent | 02/19/2006 | | Results for this | | (NA, K, CL, TCO2, | | 12:55 PM | | procedure are in the | | BUN, CR, GLU, CA) | | PDT | | results section. | + +--------+ + + + | X-RAY CHEST 1 VIEW | Urgent | 02/19/2006 | | Results for this | | | | 10:58 AM | | procedure are in the | | | | PDT | | results section. | + +--------+ + + + | CULTURE, SPUTUM | Routin | 02/19/2006 | | Results for this | | | e | 10:30 AM | | procedure are in the | | | | PDT | | results section. | + +--------+ + + + | CULTURE, SPUTUM | Routin | 02/19/2006 | | Results for this | | | e | 10:15 AM | | procedure are in the | | | | PDT | | results section. | + +--------+ + + + | CULTURE, BLOOD BACTI | Routin | 02/19/2006 | | Results for this | | & YEAST | e | 9:23 AM | | procedure are in the | | | | PDT | | results section. | + +--------+ + + + | CULTURE, BLOOD BACTI | Routin | 02/19/2006 | | Results for this | | & YEAST | e | 9:23 AM | | procedure are in the | | | | PDT | | results section. | + +--------+ + + + | CULTURE, URINE BACTI | Routin | 02/19/2006 | | Results for this | | | e | 9:23 AM | | procedure are in the | | | | PDT | | results section. | + +--------+ + + + | BASIC METABOLIC SET | Urgent | 02/19/2006 | | Results for this | | (NA, K, CL, TCO2, | | 2:30 AM | | procedure are in the | | BUN, CR, GLU, CA) | | PDT | | results section. | + +--------+ + + + | CBC ONLY | Urgent | 02/19/2006 | | Results for this | | | | 2:30 AM | | procedure are in the | | | | PDT | | results section. | + +--------+ + + + | PHOSPHORUS, PLASMA | Urgent | 02/19/2006 | | Results for this | | | | 2:30 AM | | procedure are in the | | | | PDT | | results section. | + +--------+ + + + | MAGNESIUM, PLASMA | Urgent | 02/19/2006 | | Results for this | | | | 2:30 AM | | procedure are in the | | | | PDT | | results section. | + +--------+ + + + | VANCOMYCIN, TROUGH | Routin | 02/18/2006 | | Results for this | | | e | 9:00 PM | | procedure are in the | | | | PDT | | results section. | + +--------+ + + + | X-RAY CHEST 1 VIEW | Specif | 02/18/2006 | | Results for this | | | ic | 7:55 AM | | procedure are in the | | | (Rad | PDT | | results section. | | | orders | | | | | | only) | | | | + +--------+ + + + | X-RAY ABDOMEN 1 VIEW | Urgent | 02/18/2006 | | Results for this | | | | 7:55 AM | | procedure are in the | | | | PDT | | results section. | + +--------+ + + + | BASIC METABOLIC SET | Urgent | 02/18/2006 | | Results for this | | (NA, K, CL, TCO2, | | 3:47 AM | | procedure are in the | | BUN, CR, GLU, CA) | | PDT | | results section. | + +--------+ + + + | CBC ONLY | Urgent | 02/18/2006 | | Results for this | | | | 3:47 AM | | procedure are in the | | | | PDT | | results section. | + +--------+ + + + | PHOSPHORUS, PLASMA | Urgent | 02/18/2006 | | Results for this | | | | 3:47 AM | | procedure are in the | | | | PDT | | results section. | + +--------+ + + + | MAGNESIUM, PLASMA | Urgent | 02/18/2006 | | Results for this | | | | 3:47 AM | | procedure are in the | | | | PDT | | results section. | + +--------+ + + + | CULTURE, CATH TIP | Routin | 02/17/2006 | | Results for this | | BACTI | e | 9:00 PM | | procedure are in the | | | | PDT | | results section. | + +--------+ + + + | X-RAY CHEST 1 VIEW | Specif | 02/17/2006 | | Results for this | | | ic | 5:10 AM | | procedure are in the | | | (Rad | PDT | | results section. | | | orders | | | | | | only) | | | | + +--------+ + + + | BLOOD GASES, | Urgent | 02/17/2006 | | Results for this | | ARTERIAL - LAB | | 2:20 AM | | procedure are in the | | | | PDT | | results section. | + +--------+ + + + | BASIC METABOLIC SET | Urgent | 02/17/2006 | | Results for this | | (NA, K, CL, TCO2, | | 1:39 AM | | procedure are in the | | BUN, CR, GLU, CA) | | PDT | | results section. | + +--------+ + + + | CBC ONLY | Urgent | 02/17/2006 | | Results for this | | | | 1:39 AM | | procedure are in the | | | | PDT | | results section. | + +--------+ + + + | PHOSPHORUS, PLASMA | Urgent | 02/17/2006 | | Results for this | | | | 1:39 AM | | procedure are in the | | | | PDT | | results section. | + +--------+ + + + | MAGNESIUM, PLASMA | Urgent | 02/17/2006 | | Results for this | | | | 1:39 AM | | procedure are in the | | | | PDT | | results section. | + +--------+ + + + | X-RAY CHEST 1 VIEW | Specif | 02/16/2006 | | Results for this | | | ic | 5:57 AM | | procedure are in the | | | (Rad | PDT | | results section. | | | orders | | | | | | only) | | | | + +--------+ + + + | BASIC METABOLIC SET | Urgent | 02/16/2006 | | Results for this | | (NA, K, CL, TCO2, | | 2:40 AM | | procedure are in the | | BUN, CR, GLU, CA) | | PDT | | results section. | + +--------+ + + + | CBC ONLY | Urgent | 02/16/2006 | | Results for this | | | | 2:40 AM | | procedure are in the | | | | PDT | | results section. | + +--------+ + + + | PHOSPHORUS, PLASMA | Urgent | 02/16/2006 | | Results for this | | | | 2:40 AM | | procedure are in the | | | | PDT | | results section. | + +--------+ + + + | BLOOD GASES, | Urgent | 02/16/2006 | | Results for this | | ARTERIAL - LAB | | 2:40 AM | | procedure are in the | | | | PDT | | results section. | + +--------+ + + + | MAGNESIUM, PLASMA | Urgent | 02/16/2006 | | Results for this | | | | 2:40 AM | | procedure are in the | | | | PDT | | results section. | + +--------+ + + + | X-RAY CHEST 1 VIEW | Routin | 02/15/2006 | | Results for this | | | e | 1:27 PM | | procedure are in the | | | | PDT | | results section. | + +--------+ + + + | X-RAY CHEST 1 VIEW | Specif | 02/15/2006 | | Results for this | | | ic | 5:07 AM | | procedure are in the | | | (Rad | PDT | | results section. | | | orders | | | | | | only) | | | | + +--------+ + + + | BASIC METABOLIC SET | Urgent | 02/15/2006 | | Results for this | | (NA, K, CL, TCO2, | | 2:05 AM | | procedure are in the | | BUN, CR, GLU, CA) | | PDT | | results section. | + +--------+ + + + | CBC ONLY | Urgent | 02/15/2006 | | Results for this | | | | 2:05 AM | | procedure are in the | | | | PDT | | results section. | + +--------+ + + + | PHOSPHORUS, PLASMA | Urgent | 02/15/2006 | | Results for this | | | | 2:05 AM | | procedure are in the | | | | PDT | | results section. | + +--------+ + + + | MAGNESIUM, PLASMA | Urgent | 02/15/2006 | | Results for this | | | | 2:05 AM | | procedure are in the | | | | PDT | | results section. | + +--------+ + + + | C. DIFFICILE TOXIN, | Routin | 02/14/2006 | | Results for this | | W/REFLEX | e | 8:30 AM | | procedure are in the | | CONFIRMATION IF | | PDT | | results section. | | INDETERMINATE | | | | | | RESULTS | | | | | + +--------+ + + + | UA, DIPSTICK ONLY | Urgent | 02/14/2006 | | Results for this | | | | 8:00 AM | | procedure are in the | | | | PDT | | results section. | + +--------+ + + + | URINE, MICROSCOPIC | Urgent | 02/14/2006 | | Results for this | | EXAM | | 8:00 AM | | procedure are in the | | | | PDT | | results section. | + +--------+ + + + | CULTURE, URINE BACTI | Routin | 02/14/2006 | | Results for this | | | e | 8:00 AM | | procedure are in the | | | | PDT | | results section. | + +--------+ + + + | CULTURE, SPUTUM | Routin | 02/14/2006 | | Results for this | | | e | 7:45 AM | | procedure are in the | | | | PDT | | results section. | + +--------+ + + + | CULTURE, BLOOD BACTI | Routin | 02/14/2006 | | Results for this | | & YEAST | e | 7:30 AM | | procedure are in the | | | | PDT | | results section. | + +--------+ + + + | CULTURE, BLOOD BACTI | Routin | 02/14/2006 | | Results for this | | & YEAST | e | 7:30 AM | | procedure are in the | | | | PDT | | results section. | + +--------+ + + + | X-RAY CHEST 1 VIEW | Specif | 02/14/2006 | | Results for this | | | ic | 5:41 AM | | procedure are in the | | | (Rad | PDT | | results section. | | | orders | | | | | | only) | | | | + +--------+ + + + | BLOOD GASES, | Urgent | 02/14/2006 | | Results for this | | ARTERIAL - LAB | | 4:00 AM | | procedure are in the | | | | PDT | | results section. | + +--------+ + + + | BASIC METABOLIC SET | Urgent | 02/14/2006 | | Results for this | | (NA, K, CL, TCO2, | | 2:05 AM | | procedure are in the | | BUN, CR, GLU, CA) | | PDT | | results section. | + +--------+ + + + | CBC ONLY | Urgent | 02/14/2006 | | Results for this | | | | 2:05 AM | | procedure are in the | | | | PDT | | results section. | + +--------+ + + + | PHOSPHORUS, PLASMA | Urgent | 02/14/2006 | | Results for this | | | | 2:05 AM | | procedure are in the | | | | PDT | | results section. | + +--------+ + + + | MAGNESIUM, PLASMA | Urgent | 02/14/2006 | | Results for this | | | | 2:05 AM | | procedure are in the | | | | PDT | | results section. | + +--------+ + + + | POTASSIUM, PLASMA | Urgent | 02/13/2006 | | Results for this | | | | 7:55 PM | | procedure are in the | | | | PDT | | results section. | + +--------+ + + + | BASIC METABOLIC SET | Urgent | 02/13/2006 | | Results for this | | (NA, K, CL, TCO2, | | 5:33 AM | | procedure are in the | | BUN, CR, GLU, CA) | | PDT | | results section. | + +--------+ + + + | CBC ONLY | Urgent | 02/13/2006 | | Results for this | | | | 5:33 AM | | procedure are in the | | | | PDT | | results section. | + +--------+ + + + | MAGNESIUM, PLASMA | Urgent | 02/13/2006 | | Results for this | | | | 5:33 AM | | procedure are in the | | | | PDT | | results section. | + +--------+ + + + | INR | Urgent | 02/13/2006 | | Results for this | | | | 2:45 AM | | procedure are in the | | | | PDT | | results section. | + +--------+ + + + | COMPLETE METABOLIC | Urgent | 02/13/2006 | | Results for this | | SET | | 2:45 AM | | procedure are in the | | (NA,K,CL,CO2,BUN,CRE | | PDT | | results section. | | AT,GLUC,CA,AST,ALT,B | | | | | | SHAYNE TOTAL,ALK | | | | | | PHOS,ALB,PROT TOTAL) | | | | | + +--------+ + + + | CBC ONLY | Urgent | 02/13/2006 | | Results for this | | | | 2:45 AM | | procedure are in the | | | | PDT | | results section. | + +--------+ + + + | PHOSPHORUS, PLASMA | Urgent | 02/13/2006 | | Results for this | | | | 2:45 AM | | procedure are in the | | | | PDT | | results section. | + +--------+ + + + | MAGNESIUM, PLASMA | Urgent | 02/13/2006 | | Results for this | | | | 2:45 AM | | procedure are in the | | | | PDT | | results section. | + +--------+ + + + | CULTURE, BLOOD BACTI | Routin | 02/13/2006 | | Results for this | | & YEAST | e | 2:31 AM | | procedure are in the | | | | PDT | | results section. | + +--------+ + + + | CULTURE, SPUTUM | Routin | 02/13/2006 | | Results for this | | | e | 2:30 AM | | procedure are in the | | | | PDT | | results section. | + +--------+ + + + | CULTURE, BLOOD BACTI | Routin | 02/13/2006 | | Results for this | | & YEAST | e | 2:30 AM | | procedure are in the | | | | PDT | | results section. | + +--------+ + + + | CULTURE, URINE BACTI | Routin | 02/13/2006 | | Results for this | | | e | 2:30 AM | | procedure are in the | | | | PDT | | results section. | + +--------+ + + + | BLOOD GASES, | Urgent | 02/12/2006 | | Results for this | | ARTERIAL - LAB | | 10:50 AM | | procedure are in the | | | | PDT | | results section. | + +--------+ + + + | X-RAY CHEST 1 VIEW | Specif | 02/12/2006 | | Results for this | | | ic | 5:15 AM | | procedure are in the | | | (Rad | PDT | | results section. | | | orders | | | | | | only) | | | | + +--------+ + + + | BASIC METABOLIC SET | Urgent | 02/12/2006 | | Results for this | | (NA, K, CL, TCO2, | | 2:25 AM | | procedure are in the | | BUN, CR, GLU, CA) | | PDT | | results section. | + +--------+ + + + | CBC ONLY | Urgent | 02/12/2006 | | Results for this | | | | 2:25 AM | | procedure are in the | | | | PDT | | results section. | + +--------+ + + + | PHOSPHORUS, PLASMA | Urgent | 02/12/2006 | | Results for this | | | | 2:25 AM | | procedure are in the | | | | PDT | | results section. | + +--------+ + + + | BLOOD GASES, | Urgent | 02/12/2006 | | Results for this | | ARTERIAL - LAB | | 2:25 AM | | procedure are in the | | | | PDT | | results section. | + +--------+ + + + | MAGNESIUM, PLASMA | Urgent | 02/12/2006 | | Results for this | | | | 2:25 AM | | procedure are in the | | | | PDT | | results section. | + +--------+ + + + | X-RAY CHEST 1 VIEW | Routin | 02/11/2006 | | Results for this | | | e | 1:22 PM | | procedure are in the | | | | PDT | | results section. | + +--------+ + + + | MRI SPINE CERVICAL | Routin | 02/11/2006 | | Results for this | | WO CONTRAST | e | 12:10 PM | | procedure are in the | | | | PDT | | results section. | + +--------+ + + + | MRI BRAIN WO | Routin | 02/11/2006 | | Results for this | | CONTRAST | e | 12:10 PM | | procedure are in the | | | | PDT | | results section. | + +--------+ + + + | X-RAY CHEST 1 VIEW | Specif | 02/11/2006 | | Results for this | | | ic | 5:15 AM | | procedure are in the | | | (Rad | PDT | | results section. | | | orders | | | | | | only) | | | | + +--------+ + + + | CT HEAD WO CONTRAST | Specif | 02/11/2006 | | Results for this | | | ic | 3:50 AM | | procedure are in the | | | (Rad | PDT | | results section. | | | orders | | | | | | only) | | | | + +--------+ + + + | PREALBUMIN, SERUM | Urgent | 02/11/2006 | | Results for this | | | | 3:11 AM | | procedure are in the | | | | PDT | | results section. | + +--------+ + + + | BASIC METABOLIC SET | Urgent | 02/11/2006 | | Results for this | | (NA, K, CL, TCO2, | | 3:11 AM | | procedure are in the | | BUN, CR, GLU, CA) | | PDT | | results section. | + +--------+ + + + | CBC ONLY | Urgent | 02/11/2006 | | Results for this | | | | 3:11 AM | | procedure are in the | | | | PDT | | results section. | + +--------+ + + + | PHOSPHORUS, PLASMA | Urgent | 02/11/2006 | | Results for this | | | | 3:11 AM | | procedure are in the | | | | PDT | | results section. | + +--------+ + + + | BLOOD GASES, | Urgent | 02/11/2006 | | Results for this | | ARTERIAL - LAB | | 3:11 AM | | procedure are in the | | | | PDT | | results section. | + +--------+ + + + | MAGNESIUM, PLASMA | Urgent | 02/11/2006 | | Results for this | | | | 3:11 AM | | procedure are in the | | | | PDT | | results section. | + +--------+ + + + | CULTURE, URINE BACTI | Routin | 02/10/2006 | | Results for this | | | e | 8:46 PM | | procedure are in the | | | | PDT | | results section. | + +--------+ + + + | CULTURE, SPUTUM | Routin | 02/10/2006 | | Results for this | | | e | 8:30 PM | | procedure are in the | | | | PDT | | results section. | + +--------+ + + + | CULTURE, BLOOD BACTI | Routin | 02/10/2006 | | Results for this | | & YEAST | e | 8:30 PM | | procedure are in the | | | | PDT | | results section. | + +--------+ + + + | CULTURE, BLOOD BACTI | Routin | 02/10/2006 | | Results for this | | & YEAST | e | 8:30 PM | | procedure are in the | | | | PDT | | results section. | + +--------+ + + + | X-RAY CHEST 1 VIEW | Routin | 02/10/2006 | | Results for this | | | e | 2:49 PM | | procedure are in the | | | | PDT | | results section. | + +--------+ + + + | X-RAY CHEST 1 VIEW | Routin | 02/10/2006 | | Results for this | | | e | 6:34 AM | | procedure are in the | | | | PDT | | results section. | + +--------+ + + + | INR | Urgent | 02/10/2006 | | Results for this | | | | 4:56 AM | | procedure are in the | | | | PDT | | results section. | + +--------+ + + + | BASIC METABOLIC SET | Urgent | 02/10/2006 | | Results for this | | (NA, K, CL, TCO2, | | 4:56 AM | | procedure are in the | | BUN, CR, GLU, CA) | | PDT | | results section. | + +--------+ + + + | CBC ONLY | Urgent | 02/10/2006 | | Results for this | | | | 4:56 AM | | procedure are in the | | | | PDT | | results section. | + +--------+ + + + | APTT (ACT. PART. | Urgent | 02/10/2006 | | Results for this | | THROMBO TIME) | | 4:56 AM | | procedure are in the | | | | PDT | | results section. | + +--------+ + + + | PHOSPHORUS, PLASMA | Urgent | 02/10/2006 | | Results for this | | | | 4:56 AM | | procedure are in the | | | | PDT | | results section. | + +--------+ + + + | BLOOD GASES, | Urgent | 02/10/2006 | | Results for this | | ARTERIAL - LAB | | 4:56 AM | | procedure are in the | | | | PDT | | results section. | + +--------+ + + + | MAGNESIUM, PLASMA | Urgent | 02/10/2006 | | Results for this | | | | 4:56 AM | | procedure are in the | | | | PDT | | results section. | + +--------+ + + + | PHOSPHORUS, PLASMA | Urgent | 02/09/2006 | | Results for this | | | | 11:38 PM | | procedure are in the | | | | PDT | | results section. | + +--------+ + + + | CALCIUM, IONIZED, | Urgent | 02/09/2006 | | Results for this | | WHOLE BLOOD | | 11:38 PM | | procedure are in the | | | | PDT | | results section. | + +--------+ + + + | BLOOD GASES, | Urgent | 02/09/2006 | | Results for this | | ARTERIAL - LAB | | 11:38 PM | | procedure are in the | | | | PDT | | results section. | + +--------+ + + + | MAGNESIUM, PLASMA | Urgent | 02/09/2006 | | Results for this | | | | 11:38 PM | | procedure are in the | | | | PDT | | results section. | + +--------+ + + + | CT HEAD WO CONTRAST | Urgent | 02/09/2006 | | Results for this | | | | 9:26 PM | | procedure are in the | | | | PDT | | results section. | + +--------+ + + + | BLOOD BANK HOLD TUBE | Routin | 02/09/2006 | | Results for this | | - DON | e | 9:16 PM | | procedure are in the | | | | PDT | | results section. | | T PROCESS | | | | | + +--------+ + + + | BASIC METABOLIC SET | Urgent | 02/09/2006 | | Results for this | | (NA, K, CL, TCO2, | | 8:54 PM | | procedure are in the | | BUN, CR, GLU, CA) | | PDT | | results section. | + +--------+ + + + | BASIC METABOLIC SET | Urgent | 02/09/2006 | | | | (NA, K, CL, TCO2, | | 8:54 PM | | | | BUN, CR, GLU, CA) | | PDT | | | + +--------+ + + + | CBC ONLY | Urgent | 02/09/2006 | | Results for this | | | | 8:54 PM | | procedure are in the | | | | PDT | | results section. | + +--------+ + + + | COAGULOPATHY PANEL | Urgent | 02/09/2006 | | Results for this | | (INR,APTT,FIBRINOGEN | | 8:54 PM | | procedure are in the | | ) | | PDT | | results section. | + +--------+ + + + | ETHANOL (ALCOHOL), | Urgent | 02/09/2006 | | Results for this | | BLOOD | | 8:54 PM | | procedure are in the | | | | PDT | | results section. | + +--------+ + + + | BLOOD GASES, | Urgent | 02/09/2006 | | Results for this | | ARTERIAL - LAB | | 8:54 PM | | procedure are in the | | | | PDT | | results section. | + +--------+ + + + | CK, PLASMA | Urgent | 02/09/2006 | | Results for this | | | | 8:54 PM | | procedure are in the | | | | PDT | | results section. | + +--------+ + + + documented in this encounter Results SHOULDER 3+ VIEWS RIGHT (03/29/2006 2:53 PM PDT) + + + + + + | Component | Value | Ref Range | Performed | Pathologist | | | | | At | Signature | + + + + + + | SHOULDER 3+ | Radiologist 1: | | | | | VIEWS | TRISTON BREAUX, | | | | | RIGHT | M.D.-Radiologist 2: | | | | | | TRISTON BREAUX, | | | | | | M.D.STUDY: AP | | | | | | internal/external | | | | | | rotation, scapular Y | | | | | | view 03/29/06 COMPARISON: | | | | | | 03/28/06 FINDINGS: There | | | | | | is severe degenerative | | | | | | joint disease of | | | | | | theacromioclavicular | | | | | | joint, with large | | | | | | osteophytes and mild | | | | | | stepoff withmild | | | | | | caphalad displacemnet of | | | | | | the distal clavicle | | | | | | and mild wideningof | | | | | | the coracoclavicular | | | | | | distance. The | | | | | | glenohumeral joint | | | | | | appearsintact. No | | | | | | fracture is identified. | | | | | | IMPRESSION: 1. Severe | | | | | | acromioclavicular | | | | | | degenerative joint | | | | | | disease withmildcaphalad | | | | | | displacemnet of the | | | | | | distal clavicle and mild | | | | | | widening ofthe | | | | | | coracoclavicular | | | | | | interval. 2. Intact | | | | | | glenohumeral joint. | | | | + + + + + + + + | Specimen | + + | | + + + +---------+ + + | Performing | Address | City/State/Zipcode | Phone Number | | Organization | | | | + +---------+ + + | [facility] DEPARTMENT OF | | | | | RADIOLOGY | | | | + +---------+ + + BASIC METABOLIC SET (03/29/2006 12:40 PM PDT) + +--------+ + + + | Component | Value | Ref Range | Performed | Pathologist | | | | | At | Signature | + +--------+ + + + | GLUCOSE, | 73 | 65 - 110 mg/dL | [facility] | | | PLASMA | | | DEPARTMENT | | | (LAB) | | | OF | | | | | | PATHOLOGY | | + +--------+ + + + | BUN, PLASMA | 10 | 6 - 20 mg/dL | [facility] | | | (LAB) | | | DEPARTMENT | | | | | | OF | | | | | | PATHOLOGY | | + +--------+ + + + | CREATININE | 0.7 | 0.7 - 1.3 mg/dL | [facility] | | | PLASMA | | | DEPARTMENT | | | (LAB) | | | OF | | | | | | PATHOLOGY | | + +--------+ + + + | SODIUM, | 143 | 136 - 145 | [facility] | | | PLASMA | | mmol/L | DEPARTMENT | | | (LAB) | | | OF | | | | | | PATHOLOGY | | + +--------+ + + + | POTASSIUM, | 4.0 | 3.5 - 5.1 | [facility] | | | PLASMA | | mmol/L | DEPARTMENT | | | (LAB) | | | OF | | | | | | PATHOLOGY | | + +--------+ + + + | CHLORIDE, | 103 | 98 - 107 mmol/L | [facility] | | | PLASMA | | | DEPARTMENT | | | (LAB) | | | OF | | | | | | PATHOLOGY | | + +--------+ + + + | TOTAL CO2, | 31 (H) | 23 - 29 mmol/L | [facility] | | | PLASMA | | | DEPARTMENT | | | (LAB) | | | OF | | | | | | PATHOLOGY | | + +--------+ + + + | CALCIUM, | 9.1 | 8.5 - 10.5 | [facility] | | | PLASMA | | mg/dL | DEPARTMENT | | | (LAB) | | | OF | | | | | | PATHOLOGY | | + +--------+ + + + + + | Specimen | + + | | + + + + + + + | Performing | Address | City/State/Zipcode | Phone Number | | Organization | | | | + + + + + | [facility] DEPARTMENT OF | [address] | [place] [address] | | | PATHOLOGY | [address] | | | + + + + + | [facility] DEPARTMENT OF | [address] | [place] [address] | | | PATHOLOGY | [address] | | | + + + + + PREALBUMIN (03/29/2006 12:40 PM PDT) + + + + + + | Component | Value | Ref Range | Performed | Pathologist | | | | | At | Signature | + + + + + + | PREALBUMIN | 257Comment: No | 180 - 445 mg/L | | | | | Range Available for | | | | | | Children <58 | | | | | | Days. Test | | | | | | performed by [facility] | | | | | | [facility] | | | | | | [facility]. | | | | + + + + + + + + | Specimen | + + | | + + + + + + + | Performing | Address | City/State/Zipcode | Phone Number | | Organization | | | | + + + + + | [facility] | [address] | [place] [address] | | | LABORATORY | | | | + + + + + CLAVICLE COMPLETE (03/28/2006 2:49 PM PDT) + + + + + + | Component | Value | Ref Range | Performed | Pathologist | | | | | At | Signature | + + + + + + | CLAVICLE | Radiologist 1: JEVON | | | | | DANK | GWENDOLYN Kerns | | | | | | Nabor-Radiologist 2: | | | | | | DOUGLAS GARCÍA: AP | | | | | | and cephalad angled AP | | | | | | clavicle radiographs | | | | | | 03/28/06 COMPARISON: | | | | | | None. FINDINGS: There is | | | | | | deformity of the distal | | | | | | clavicle, with | | | | | | severeacromioclavicular | | | | | | degenerative joint | | | | | | disease. Spurring is | | | | | | noted ofthe undersurface | | | | | | of the clavicle in its | | | | | | mid aspect. There | | | | | | iswidening of the | | | | | | coracoclavicular | | | | | | interval to 17 | | | | | | mm. Measurementof the | | | | | | acriomioclavicular | | | | | | distance is difficult | | | | | | secondary to | | | | | | theprojections. Evalu | | | | | | ation of the | | | | | | glenohumeral joint is | | | | | | limited,however, it | | | | | | appears intact. No | | | | | | soft tissue abnormality | | | | | | isidentified. | | | | | | IMPRESSION: 1. Severe | | | | | | degenerative joint | | | | | | disease of the | | | | | | acromioclavicularjoint, | | | | | | with widening of the | | | | | | coracoclavicular | | | | | | interval. 2. Post | | | | | | traumatic deformity of | | | | | | the distal clavicle. | | | | + + + + + + + + | Specimen | + + | | + + + +---------+ + + | Performing | Address | City/State/Zipcode | Phone Number | | Organization | | | | + +---------+ + + | [facility] DEPARTMENT OF | | | | | RADIOLOGY | | | | + +---------+ + + SPINE CERVICAL 2 VIEWS (03/26/2006 1:35 PM PDT) + + + + + + | Component | Value | Ref Range | Performed | Pathologist | | | | | At | Signature | + + + + + + | SPINE | Radiologist 1: ROSALBA | | | | | CERVICAL 2 | Nabor LYNN-Radiologist | | | | | VIEWS | 2: LEAH NAVARRETE, | | | | | | M.D.STUDY: A.P. and | | | | | | lateral views of the | | | | | | cervical spine. | | | | | | DATE: 03/26/06. | | | | | | COMPARISON: CT from | | | | | | 02/09/06. FINDINGS: | | | | | | Flexion and extension | | | | | | views were not performed | | | | | | due to inability ofthe | | | | | | patient to cooperate. An | | | | | | oblique linear lucency | | | | | | is noted in the base of | | | | | | the spinousprocess of | | | | | | C7. This is not | | | | | | displaced. The | | | | | | fracture | | | | | | demonstratesill-defined | | | | | | margins consistent with | | | | | | a subacute fracture with | | | | | | | | | | | | bonyresorption. There | | | | | | is anatomic alignment | | | | | | of the cervical | | | | | | vertebralbodies. The | | | | | | posterior margin of C7 | | | | | | is in normal alignment | | | | | | withthe posterior margin | | | | | | of T1. No obvious | | | | | | malalignment is | | | | | | present.No rotational | | | | | | abnormality or step off | | | | | | is seen on the AP | | | | | | view.The prevertebral | | | | | | soft tissues are normal | | | | | | in thickness. No | | | | | | otherfracture is | | | | | | identified. IMPRESSION: | | | | | | 1. Nondisplaced | | | | | | oblique fracture through | | | | | | the base of the C7 | | | | | | spinousprocess. This | | | | | | appears subacute in age | | | | | | with bony resorption | | | | | | along thefracture | | | | | | margins. 2. The | | | | | | fractures through the | | | | | | inferior articular | | | | | | facets of C7 seen onthe | | | | | | CT scan are not | | | | | | visualized on this | | | | | | study. . | | | | + + + + + + + + | Specimen | + + | | + + + +---------+ + + | Performing | Address | City/State/Zipcode | Phone Number | | Organization | | | | + +---------+ + + | [facility] DEPARTMENT OF | | | | | RADIOLOGY | | | | + +---------+ + + C. DIFFICILE TOXINS A+B (03/23/2006 9:00 AM PDT) + + + + + + | Component | Value | Ref Range | Performed | Pathologist | | | | | At | Signature | + + + + + + | C. | NegativeComment: | | | | | DIFFICILE | Reference | | | | | TOXIN | Range: Negative | | | | | | Test performed by [facility] | | | | | | Rad[facility] Shirley | | | | | | Janes. | | | | + + + + + + + + | Specimen | + + | | + + + + + + + | Performing | Address | City/State/Zipcode | Phone Number | | Organization | | | | + + + + + | [facility] | [address] | [place] [address] | | | LAB-MICRO | | | | + + + + + C. DIFFICILE TOXINS A+B (03/23/2006 9:00 AM PDT) + + + + + + | Component | Value | Ref Range | Performed | Pathologist | | | | | At | Signature | + + + + + + | C. | Duplicate order. | | | | | DIFFICILE | | | | | | TOXIN | | | | | + + + + + + + + | Specimen | + + | | + + + + + | Narrative | Performed At | + + + | * Corrected 03/25/06 09:51: C. DIFFICILE TOXINS A+BY, prev report: | | | Tenzin This patient has had a previous positive C.difficile toxin | | | result within the past 2 weeks. Repeat testing within 2 weeks of | | | a positive toxin result is not performed due to the ability to | | | detect toxin for several weeks after appropriate treatment. | | + + + + + + + + | Performing | Address | City/State/Zipcode | Phone Number | | Organization | | | | + + + + + | [facility] | [address] | [place] [address] | | | LAB-MICRO | | | | + + + + + ABDOMEN 1 VIEW (03/23/2006 12:43 AM PDT) + + + + + + | Component | Value | Ref Range | Performed | Pathologist | | | | | At | Signature | + + + + + + | ABDOMEN, 1 | Radiologist 1: ASHTYN, | | | | | VIEW (ÁNGEL) | HAYDEN-Radiologist 2: | | | | | | CHELA, | | | | | | GENEVAEXAM: AP view | | | | | | of lower chest and upper | | | | | | abdomen for feeding | | | | | | tubefor feeding | | | | | | difficulty. | | | | | | COMPARISON: 02/18/06 | | | | | | FINDINGS: No nasal | | | | | | enteric feeding tube is | | | | | | identified. A | | | | | | smallamount of contrast | | | | | | has been administered | | | | | | through the | | | | | | gastrostomytube. Ther | | | | | | e is contrast opacifying | | | | | | the proximal | | | | | | stomach. Noextravasat | | | | | | ion of contrast is | | | | | | demonstrated. Normal | | | | | | bowel | | | | | | gaspattern. Hazy | | | | | | opacity at the right | | | | | | lung base | | | | | | incompletelyevaluated. | | | | | | IMPRESSION: 1. No | | | | | | nasal enteric feeding | | | | | | tube | | | | | | identified.2. Contras | | | | | | t material injected via | | | | | | the G-tube is seen in | | | | | | thegastric | | | | | | fundus.3. Hazy | | | | | | opacity of the right | | | | | | lung base incompletely | | | | | | evaluated.Suggest | | | | | | correlation with chest | | | | | | x-ray. | | | | + + + + + + + + | Specimen | + + | | + + + +---------+ + + | Performing | Address | City/State/Zipcode | Phone Number | | Organization | | | | + +---------+ + + | [facility] DEPARTMENT OF | | | | | RADIOLOGY | | | | + +---------+ + + BASIC METABOLIC SET (03/22/2006 9:35 AM PDT) + +---------+ + + + | Component | Value | Ref Range | Performed | Pathologist | | | | | At | Signature | + +---------+ + + + | GLUCOSE, | 104 | 65 - 110 mg/dL | [facility] | | | PLASMA | | | DEPARTMENT | | | (LAB) | | | OF | | | | | | PATHOLOGY | | + +---------+ + + + | BUN, PLASMA | 10 | 6 - 20 mg/dL | [facility] | | | (LAB) | | | DEPARTMENT | | | | | | OF | | | | | | PATHOLOGY | | + +---------+ + + + | CREATININE | 0.6 (L) | 0.7 - 1.3 mg/dL | [facility] | | | PLASMA | | | DEPARTMENT | | | (LAB) | | | OF | | | | | | PATHOLOGY | | + +---------+ + + + | SODIUM, | 136 | 136 - 145 | [facility] | | | PLASMA | | mmol/L | DEPARTMENT | | | (LAB) | | | OF | | | | | | PATHOLOGY | | + +---------+ + + + | POTASSIUM, | 4.2 | 3.5 - 5.1 | [facility] | | | PLASMA | | mmol/L | DEPARTMENT | | | (LAB) | | | OF | | | | | | PATHOLOGY | | + +---------+ + + + | CHLORIDE, | 102 | 98 - 107 mmol/L | [facility] | | | PLASMA | | | DEPARTMENT | | | (LAB) | | | OF | | | | | | PATHOLOGY | | + +---------+ + + + | TOTAL CO2, | 27 | 23 - 29 mmol/L | [facility] | | | PLASMA | | | DEPARTMENT | | | (LAB) | | | OF | | | | | | PATHOLOGY | | + +---------+ + + + | CALCIUM, | 9.0 | 8.5 - 10.5 | [facility] | | | PLASMA | | mg/dL | DEPARTMENT | | | (LAB) | | | OF | | | | | | PATHOLOGY | | + +---------+ + + + + + | Specimen | + + | | + + + + + + + | Performing | Address | City/State/Zipcode | Phone Number | | Organization | | | | + + + + + | [facility] DEPARTMENT OF | [address] | [place] [address] | | | PATHOLOGY | [address] | | | + + + + + | [facility] DEPARTMENT OF | [address] | [place] [address] | | | PATHOLOGY | [address] | | | + + + + + CBC, WITH DIFFERENTIAL (03/22/2006 9:35 AM PDT) + + + + + + | Component | Value | Ref Range | Performed | Pathologist | | | | | At | Signature | + + + + + + | WHITE CELL | 8.4 | 4.4 - 11.0 K/cu | [facility] | | | COUNT | | mm | DEPARTMENT | | | | | | OF | | | | | | PATHOLOGY | | + + + + + + | RED CELL | 3.90 (L) | 4.50 - 5.90 | [facility] | | | COUNT | | M/cu mm | DEPARTMENT | | | | | | OF | | | | | | PATHOLOGY | | + + + + + + | HEMOGLOBIN | 12.2 (L) | 13.5 - 17.5 | [facility] | | | | | g/dL | DEPARTMENT | | | | | | OF | | | | | | PATHOLOGY | | + + + + + + | HEMATOCRIT | 35.5 (L) | 41.0 - 53.0 % | [facility] | | | | | | DEPARTMENT | | | | | | OF | | | | | | PATHOLOGY | | + + + + + + | MCV | 91.1 | 80.0 - 96.0 fL | [facility] | | | | | | DEPARTMENT | | | | | | OF | | | | | | PATHOLOGY | | + + + + + + | MCHC | 34.3 | 33.4 - 35.5 | [facility] | | | | | g/dL | DEPARTMENT | | | | | | OF | | | | | | PATHOLOGY | | + + + + + + | RDW | 13.2 | 11.5 - 15.0 % | [facility] | | | | | | DEPARTMENT | | | | | | OF | | | | | | PATHOLOGY | | + + + + + + | PLATELET | 466 (H) | 150 - 400 K/cu | [facility] | | | COUNT | | mm | DEPARTMENT | | | | | | OF | | | | | | PATHOLOGY | | + + + + + + + + | Specimen | + + | | + + + + + + + | Performing | Address | City/State/Zipcode | Phone Number | | Organization | | | | + + + + + | [facility] DE[facility]MENT [facility] | [address] | [place] [address] | | | PATHOLOGY | [address] | | | + + + + + | [facility] DE[facility]MENT OF | [address] | [place] [address] | | | PATHOLOGY | [address] | | | + + + + + DIFFERENTIAL (03/22/2006 9:35 AM PDT) + +---------+ + + + | Component | Value | Ref Range | Performed | Pathologist | | | | | At | Signature | + +---------+ + + + | NEUTROPHIL | 64 | 50 - 70 % | [facility] | | | % | | | DEPARTMENT | | | | | | OF | | | | | | PATHOLOGY | | + +---------+ + + + | LYMPHOCYTE | 23 | 18 - 42 % | [facility] | | | % | | | DEPARTMENT | | | | | | OF | | | | | | PATHOLOGY | | + +---------+ + + + | MONOCYTE % | 9 (H) | 2 - 8 % | [facility] | | | | | | DEPARTMENT | | | | | | OF | | | | | | PATHOLOGY | | + +---------+ + + + | EOS % | 3 | 1 - 3 % | [facility] | | | | | | DEPARTMENT | | | | | | OF | | | | | | PATHOLOGY | | + +---------+ + + + | BASO % | 1 | <3 % | [facility] | | | | | | DEPARTMENT | | | | | | OF | | | | | | PATHOLOGY | | + +---------+ + + + | NEUTROPHIL | 5.4 | 1.8 - 7.7 K/cu | [facility] | | | # | | mm | DEPARTMENT | | | | | | OF | | | | | | PATHOLOGY | | + +---------+ + + + | LYMPHOCYTE | 1.9 | 1.0 - 4.8 K/cu | [facility] | | | # | | mm | DEPARTMENT | | | | | | OF | | | | | | PATHOLOGY | | + +---------+ + + + | MONOCYTE # | 0.8 (H) | 0.1 - 0.6 K/cu | [facility] | | | | | mm | DEPARTMENT | | | | | | OF | | | | | | PATHOLOGY | | + +---------+ + + + | EOS # | 0.3 | <0.6 K/cu mm | [facility] | | | | | | DEPARTMENT | | | | | | OF | | | | | | PATHOLOGY | | + +---------+ + + + | BASO # | 0.1 | <0.2 | [facility] | | | | | | DEPARTMENT | | | | | | OF | | | | | | PATHOLOGY | | + +---------+ + + + + + | Specimen | + + | | + + + + + + + | Performing | Address | City/State/Zipcode | Phone Number | | Organization | | | | + + + + + | [facility] | [address] | [place] [address] | | | PATHOLOGY | [address] | | | + + + + + | [facility] | [address] [place] [address] [address] | [place] [address] | | | PATHOLOGY | [address] | | | + + + + + BASIC METABOLIC SET (03/19/2006 7:05 AM PDT) + +---------+ + + + | Component | Value | Ref Range | Performed | Pathologist | | | | | At | Signature | + +---------+ + + + | GLUCOSE, | 98 | 65 - 110 mg/dL | [facility] | | | PLASMA | | | DEPARTMENT | | | (LAB) | | | OF | | | | | | PATHOLOGY | | + +---------+ + + + | BUN, PLASMA | 15 | 6 - 20 mg/dL | [facility] | | | (LAB) | | | DEPARTMENT | | | | | | OF | | | | | | PATHOLOGY | | + +---------+ + + + | CREATININE | 0.5 (L) | 0.7 - 1.3 mg/dL | [facility] | | | PLASMA | | | DEPARTMENT | | | (LAB) | | | OF | | | | | | PATHOLOGY | | + +---------+ + + + | SODIUM, | 142 | 136 - 145 | [facility] | | | PLASMA | | mmol/L | DEPARTMENT | | | (LAB) | | | OF | | | | | | PATHOLOGY | | + +---------+ + + + | POTASSIUM, | 3.7 | 3.5 - 5.1 | [facility] | | | PLASMA | | mmol/L | DEPARTMENT | | | (LAB) | | | OF | | | | | | PATHOLOGY | | + +---------+ + + + | CHLORIDE, | 104 | 98 - 107 mmol/L | [facility] | | | PLASMA | | | DEPARTMENT | | | (LAB) | | | OF | | | | | | PATHOLOGY | | + +---------+ + + + | TOTAL CO2, | 28 | 23 - 29 mmol/L | [facility] | | | PLASMA | | | DEPARTMENT | | | (LAB) | | | OF | | | | | | PATHOLOGY | | + +---------+ + + + | CALCIUM, | 9.2 | 8.5 - 10.5 | [facility] | | | PLASMA | | mg/dL | DEPARTMENT | | | (LAB) | | | OF | | | | | | PATHOLOGY | | + +---------+ + + + + + | Specimen | + + | | + + + + + + + | Performing | Address | City/State/Zipcode | Phone Number | | Organization | | | | + + + + + | [facility] | [facility] [address] | [place] [address] | | | PATHOLOGY | [address] | | | + + + + + | [facility] | [address] [place] [address] | [place] [address] | | | PATHOLOGY | [address] | | | + + + + + CBC ONLY WITH PLATELET (03/19/2006 7:05 AM PDT) + + + + + + | Component | Value | Ref Range | Performed | Pathologist | | | | | At | Signature | + + + + + + | WHITE CELL | 6.7 | 4.4 - 11.0 K/cu | [facility] | | | COUNT | | mm | DEPARTMENT | | | | | | OF | | | | | | PATHOLOGY | | + + + + + + | RED CELL | 4.22 (L) | 4.50 - 5.90 | [facility] | | | COUNT | | M/cu mm | DEPARTMENT | | | | | | OF | | | | | | PATHOLOGY | | + + + + + + | HEMOGLOBIN | 13.1 (L) | 13.5 - 17.5 | [facility] | | | | | g/dL | DEPARTMENT | | | | | | OF | | | | | | PATHOLOGY | | + + + + + + | HEMATOCRIT | 39.0 (L) | 41.0 - 53.0 % | [facility] | | | | | | DEPARTMENT | | | | | | OF | | | | | | PATHOLOGY | | + + + + + + | MCV | 92.4 | 80.0 - 96.0 fL | [facility] | | | | | | DEPARTMENT | | | | | | OF | | | | | | PATHOLOGY | | + + + + + + | MCHC | 33.5 | 33.4 - 35.5 | [facility] | | | | | g/dL | DEPARTMENT | | | | | | OF | | | | | | PATHOLOGY | | + + + + + + | RDW | 12.9 | 11.5 - 15.0 % | [facility] | | | | | | DEPARTMENT | | | | | | OF | | | | | | PATHOLOGY | | + + + + + + | PLATELET | 427 (H) | 150 - 400 K/cu | [facility] | | | COUNT | | mm | DEPARTMENT | | | | | | OF | | | | | | PATHOLOGY | | + + + + + + + + | Specimen | + + | | + + + + + + + | Performing | Address | City/State/Zipcode | Phone Number | | Organization | | | | + + + + + | [facility] | [address] | [place] [address] | | | PATHOLOGY | [address] | | | + + + + + | [facility] | [address] [facility] | [place] [address] | | | PATHOLOGY | [address] | | | + + + + + C. DIFFICILE TOXINS A+B (03/17/2006 5:00 PM PDT) + + + + + + | Component | Value | Ref Range | Performed | Pathologist | | | | | At | Signature | + + + + + + | C. | POSITIVEComment: | | | | | DIFFICILE | Reference | | | | | TOXIN | Range: Negative | | | | | | Test performed by [facility] | | | | | | [facility] | | | | | | Laboratory. | | | | + + + + + + + + | Specimen | + + | | + + + + + + + | Performing | Address | City/State/Zipcode | Phone Number | | Organization | | | | + + + + + | [facility] | [address] | [place] [address] | | | LAB-MICRO | | | | + + + + + C. DIFFICILE TOXINS A+B (03/17/2006 10:00 AM PDT) + + + + + + | Component | Value | Ref Range | Performed | Pathologist | | | | | At | Signature | + + + + + + | C. | POSITIVEComment: | | | | | DIFFICILE | Reference | | | | | TOXIN | Range: Negative | | | | | | Test performed by [facility] | | | | | | [facility] | | | | | | Laboratory. | | | | + + + + + + + + | Specimen | + + | | + + + + + + + | Performing | Address | City/State/Zipcode | Phone Number | | Organization | | | | + + + + + | [facility] | [address] | [place] [address] | | | LAB-MICRO | | | | + + + + + BASIC METABOLIC SET (03/15/2006 7:00 AM PDT) + +---------+ + + + | Component | Value | Ref Range | Performed | Pathologist | | | | | At | Signature | + +---------+ + + + | GLUCOSE, | 102 | 65 - 110 mg/dL | [facility] | | | PLASMA | | | DEPARTMENT | | | (LAB) | | | OF | | | | | | PATHOLOGY | | + +---------+ + + + | BUN, PLASMA | 15 | 6 - 20 mg/dL | [facility] | | | (LAB) | | | DEPARTMENT | | | | | | OF | | | | | | PATHOLOGY | | + +---------+ + + + | CREATININE | 0.6 (L) | 0.7 - 1.3 mg/dL | [facility] | | | PLASMA | | | DEPARTMENT | | | (LAB) | | | OF | | | | | | PATHOLOGY | | + +---------+ + + + | SODIUM, | 138 | 136 - 145 | [facility] | | | PLASMA | | mmol/L | DEPARTMENT | | | (LAB) | | | OF | | | | | | PATHOLOGY | | + +---------+ + + + | POTASSIUM, | 4.0 | 3.5 - 5.1 | [facility] | | | PLASMA | | mmol/L | DEPARTMENT | | | (LAB) | | | OF | | | | | | PATHOLOGY | | + +---------+ + + + | CHLORIDE, | 99 | 98 - 107 mmol/L | [facility] | | | PLASMA | | | DEPARTMENT | | | (LAB) | | | OF | | | | | | PATHOLOGY | | + +---------+ + + + | TOTAL CO2, | 32 (H) | 23 - 29 mmol/L | [facility] | | | PLASMA | | | DEPARTMENT | | | (LAB) | | | OF | | | | | | PATHOLOGY | | + +---------+ + + + | CALCIUM, | 9.5 | 8.5 - 10.5 | [facility] | | | PLASMA | | mg/dL | DEPARTMENT | | | (LAB) | | | OF | | | | | | PATHOLOGY | | + +---------+ + + + + + | Specimen | + + | | + + + + + + + | Performing | Address | City/State/Zipcode | Phone Number | | Organization | | | | + + + + + | [facility] | [address] [address] | [place] [address] | | | PATHOLOGY | [address] | | | + + + + + | [facility] DEPARTMENT | [address] | [place] [address] | | | PATHOLOGY | [address] | | | + + + + + PREALBUMIN (03/15/2006 7:00 AM PDT) + + + + + + | Component | Value | Ref Range | Performed | Pathologist | | | | | At | Signature | + + + + + + | PREALBUMIN | 331Comment: No | 180 - 445 mg/L | | | | | Range Available for | | | | | | Children <58 | | | | | | Days. Test | | | | | | performed by [facility] | | | | | | [facility] | | | | | | Laboratories. | | | | + + + + + + + + | Specimen | + + | | + + + + + + + | Performing | Address | City/State/Zipcode | Phone Number | | Organization | | | | + + + + + | [facility] | [address] | [place] [address] | | | LABORATORY | | | | + + + + + CBC ONLY WITH PLATELET (03/15/2006 7:00 AM PDT) + + + + + + | Component | Value | Ref Range | Performed | Pathologist | | | | | At | Signature | + + + + + + | WHITE CELL | 8.9 | 4.4 - 11.0 K/cu | [facility] | | | COUNT | | mm | DEPARTMENT | | | | | | OF | | | | | | PATHOLOGY | | + + + + + + | RED CELL | 4.31 (L) | 4.50 - 5.90 | [facility] | | | COUNT | | M/cu mm | DEPARTMENT | | | | | | OF | | | | | | PATHOLOGY | | + + + + + + | HEMOGLOBIN | 13.4 (L) | 13.5 - 17.5 | [facility] | | | | | g/dL | DEPARTMENT | | | | | | OF | | | | | | PATHOLOGY | | + + + + + + | HEMATOCRIT | 39.6 (L) | 41.0 - 53.0 % | [facility] | | | | | | DEPARTMENT | | | | | | OF | | | | | | PATHOLOGY | | + + + + + + | MCV | 91.9 | 80.0 - 96.0 fL | [facility] | | | | | | DEPARTMENT | | | | | | OF | | | | | | PATHOLOGY | | + + + + + + | MCHC | 33.8 | 33.4 - 35.5 | [facility] | | | | | g/dL | DEPARTMENT | | | | | | OF | | | | | | PATHOLOGY | | + + + + + + | RDW | 13.1 | 11.5 - 15.0 % | [facility] | | | | | | DEPARTMENT | | | | | | OF | | | | | | PATHOLOGY | | + + + + + + | PLATELET | 476 (H) | 150 - 400 K/cu | [facility] | | | COUNT | | mm | DEPARTMENT | | | | | | OF | | | | | | PATHOLOGY | | + + + + + + + + | Specimen | + + | | + + + + + + + | Performing | Address | City/State/Zipcode | Phone Number | | Organization | | | | + + + + + | [facility] | [address] | [place] [address] | | | PATHOLOGY | [address] | | | + + + + + | [facility] DEPARTMENT | [address] | [place] [address] | | | PATHOLOGY | [address] | | | + + + + + BASIC METABOLIC SET (03/07/2006 6:35 AM PDT) + +---------+ + + + | Component | Value | Ref Range | Performed | Pathologist | | | | | At | Signature | + +---------+ + + + | GLUCOSE, | 113 (H) | 65 - 110 mg/dL | [facility] | | | PLASMA | | | DEPARTMENT | | | (LAB) | | | OF | | | | | | PATHOLOGY | | + +---------+ + + + | BUN, PLASMA | 14 | 6 - 20 mg/dL | [facility] | | | (LAB) | | | DEPARTMENT | | | | | | OF | | | | | | PATHOLOGY | | + +---------+ + + + | CREATININE | 0.5 (L) | 0.7 - 1.3 mg/dL | [facility] | | | PLASMA | | | DEPARTMENT | | | (LAB) | | | OF | | | | | | PATHOLOGY | | + +---------+ + + + | SODIUM, | 137 | 136 - 145 | [facility] | | | PLASMA | | mmol/L | DEPARTMENT | | | (LAB) | | | OF | | | | | | PATHOLOGY | | + +---------+ + + + | POTASSIUM, | 3.9 | 3.5 - 5.1 | [facility] | | | PLASMA | | mmol/L | DEPARTMENT | | | (LAB) | | | OF | | | | | | PATHOLOGY | | + +---------+ + + + | CHLORIDE, | 99 | 98 - 107 mmol/L | [facility] | | | PLASMA | | | DEPARTMENT | | | (LAB) | | | OF | | | | | | PATHOLOGY | | + +---------+ + + + | TOTAL CO2, | 27 | 23 - 29 mmol/L | [facility] | | | PLASMA | | | DEPARTMENT | | | (LAB) | | | OF | | | | | | PATHOLOGY | | + +---------+ + + + | CALCIUM, | 8.9 | 8.5 - 10.5 | [facility] | | | PLASMA | | mg/dL | DEPARTMENT | | | (LAB) | | | OF | | | | | | PATHOLOGY | | + +---------+ + + + + + | Specimen | + + | | + + + + + + + | Performing | Address | City/State/Zipcode | Phone Number | | Organization | | | | + + + + + | [facility] DEPARTMENT OF | [address] | [place] [address] | | | PATHOLOGY | [address] | | | + + + + + | [facility] DEPARTMENT OF | [address] | [place] [address] | | | PATHOLOGY | [address] | | | + + + + + PHOSPHORUS, PLASMA (03/07/2006 6:35 AM PDT) + +-------+ + + + | Component | Value | Ref Range | Performed | Pathologist | | | | | At | Signature | + +-------+ + + + | PHOSPHORUS, | 4.3 | 2.4 - 4.7 mg/dL | [facility] | | | PLASMA | | | DEPARTMENT | | | (LAB) | | | OF | | | | | | PATHOLOGY | | + +-------+ + + + + + | Specimen | + + | | + + + + + + + | Performing | Address | City/State/Zipcode | Phone Number | | Organization | | | | + + + + + | [facility] DEPARTMENT OF | [address] | [place] [address] | | | PATHOLOGY | [address] | | | + + + + + | [facility] DEPARTMENT OF | [address] | [place] [address] | | | PATHOLOGY | [address] | | | + + + + + MAGNESIUM, PLASMA (03/07/2006 6:35 AM PDT) + +-------+ + + + | Component | Value | Ref Range | Performed | Pathologist | | | | | At | Signature | + +-------+ + + + | MAGNESIUM,P | 2.3 | 1.8 - 2.5 mg/dL | [facility] | | | LASMA | | | DEPARTMENT | | | | | | OF | | | | | | PATHOLOGY | | + +-------+ + + + + + | Specimen | + + | | + + + + + + + | Performing | Address | City/State/Zipcode | Phone Number | | Organization | | | | + + + + + | [facility] | [address] | [place] [address] | | | PATHOLOGY | [address] | | | + + + + + | [facility] | [facility] | [place] [address] | | | PATHOLOGY | [address] | | | + + + + + CBC ONLY WITH PLATELET (03/07/2006 6:00 AM PDT) + + + + + + | Component | Value | Ref Range | Performed | Pathologist | | | | | At | Signature | + + + + + + | WHITE CELL | 9.7 | 4.4 - 11.0 K/cu | [facility] | | | COUNT | | mm | DEPARTMENT | | | | | | OF | | | | | | PATHOLOGY | | + + + + + + | RED CELL | 3.78 (L) | 4.50 - 5.90 | [facility] | | | COUNT | | M/cu mm | DEPARTMENT | | | | | | OF | | | | | | PATHOLOGY | | + + + + + + | HEMOGLOBIN | 11.9 (L) | 13.5 - 17.5 | [facility] | | | | | g/dL | DEPARTMENT | | | | | | OF | | | | | | PATHOLOGY | | + + + + + + | HEMATOCRIT | 34.8 (L) | 41.0 - 53.0 % | [facility] | | | | | | DEPARTMENT | | | | | | OF | | | | | | PATHOLOGY | | + + + + + + | MCV | 92.1 | 80.0 - 96.0 fL | [facility] | | | | | | DEPARTMENT | | | | | | OF | | | | | | PATHOLOGY | | + + + + + + | MCHC | 34.1 | 33.4 - 35.5 | [facility] | | | | | g/dL | DEPARTMENT | | | | | | OF | | | | | | PATHOLOGY | | + + + + + + | RDW | 13.1 | 11.5 - 15.0 % | [facility] | | | | | | DEPARTMENT | | | | | | OF | | | | | | PATHOLOGY | | + + + + + + | PLATELET | 519 (H) | 150 - 400 K/cu | [facility] | | | COUNT | | mm | DEPARTMENT | | | | | | OF | | | | | | PATHOLOGY | | + + + + + + + + | Specimen | + + | | + + + + + + + | Performing | Address | City/State/Zipcode | Phone Number | | Organization | | | | + + + + + | [facility] | [address] | [place] [address] | | | PATHOLOGY | [address] | | | + + + + + | [facility] DEPARTMENT OF | [address] | [place] [address] | | | PATHOLOGY | [address] | | | + + + + + C. DIFFICILE TOXINS A+B (03/05/2006 6:30 PM PDT) + + + + + + | Component | Value | Ref Range | Performed | Pathologist | | | | | At | Signature | + + + + + + | C. | See cmnt | | | | | DIFFICILE | | | | | | TOXIN | | | | | + + + + + + + + | Specimen | + + | | + + + + + | Narrative | Performed At | + + + | One spec per 24hrs only, previously ordered. | | + + + + + + + + | Performing | Address | City/State/Zipcode | Phone Number | | Organization | | | | + + + + + | [facility] | [address] | [place] [address] | | | LAB-MICRO | | | | + + + + + C. DIFFICILE TOXINS A+B (03/05/2006 4:30 PM PDT) + + + + + + | Component | Value | Ref Range | Performed | Pathologist | | | | | At | Signature | + + + + + + | C. | NegativeComment: | | | | | DIFFICILE | Reference | | | | | TOXIN | Range: Negative | | | | | | Test performed by [facility] | | | | | | [facility] | | | | | | Laboratory. | | | | + + + + + + + + | Specimen | + + | | + + + + + + + | Performing | Address | City/State/Zipcode | Phone Number | | Organization | | | | + + + + + | [facility] | [address] | [place] [address] | | | LAB-MICRO | | | | + + + + + C. DIFFICILE TOXINS A+B (03/05/2006 2:15 PM PDT) + + + + + + | Component | Value | Ref Range | Performed | Pathologist | | | | | At | Signature | + + + + + + | C. | NegativeComment: | | | | | DIFFICILE | Reference | | | | | TOXIN | Range: Negative | | | | | | Test performed by [facility] | | | | | | [facility] | | | | | | Laboratory. | | | | + + + + + + | STOOL DATE | [id number] | | | | | COLLECTION | | | | | + + + + + + | STOOL TIME | 1415 | | | | | COLLECTION | | | | | + + + + + + + + | Specimen | + + | | + + + + + + + | Performing | Address | City/State/Zipcode | Phone Number | | Organization | | | | + + + + + | [facility] | [address] | [place] [address] | | | LAB-MICRO | | | | + + + + + MAGNESIUM, PLASMA (03/04/2006 7:05 AM PDT) + +-------+ + + + | Component | Value | Ref Range | Performed | Pathologist | | | | | At | Signature | + +-------+ + + + | MAGNESIUM,P | 2.1 | 1.8 - 2.5 mg/dL | [facility] | | | LASMA | | | DEPARTMENT | | | | | | OF | | | | | | PATHOLOGY | | + +-------+ + + + + + | Specimen | + + | | + + + + + + + | Performing | Address | City/State/Zipcode | Phone Number | | Organization | | | | + + + + + | [facility] | [address] | [place] [address] | | | PATHOLOGY | [address] | | | + + + + + | [facility] | [address] | [place] [address] | | | PATHOLOGY | [address] | | | + + + + + CBC ONLY WITH PLATELET (03/04/2006 7:05 AM PDT) + + + + + + | Component | Value | Ref Range | Performed | Pathologist | | | | | At | Signature | + + + + + + | WHITE CELL | 12.0 (H) | 4.4 - 11.0 K/cu | [facility] | | | COUNT | | mm | DEPARTMENT | | | | | | OF | | | | | | PATHOLOGY | | + + + + + + | RED CELL | 3.65 (L) | 4.50 - 5.90 | [facility] | | | COUNT | | M/cu mm | DEPARTMENT | | | | | | OF | | | | | | PATHOLOGY | | + + + + + + | HEMOGLOBIN | 11.6 (L) | 13.5 - 17.5 | [facility] | | | | | g/dL | DEPARTMENT | | | | | | OF | | | | | | PATHOLOGY | | + + + + + + | HEMATOCRIT | 34.0 (L) | 41.0 - 53.0 % | [facility] | | | | | | DEPARTMENT | | | | | | OF | | | | | | PATHOLOGY | | + + + + + + | MCV | 93.1 | 80.0 - 96.0 fL | [facility] | | | | | | DEPARTMENT | | | | | | OF | | | | | | PATHOLOGY | | + + + + + + | MCHC | 34.2 | 33.4 - 35.5 | [facility] | | | | | g/dL | DEPARTMENT | | | | | | OF | | | | | | PATHOLOGY | | + + + + + + | RDW | 13.4 | 11.5 - 15.0 % | [facility] | | | | | | DEPARTMENT | | | | | | OF | | | | | | PATHOLOGY | | + + + + + + | PLATELET | 626 (H) | 150 - 400 K/cu | [facility] | | | COUNT | | mm | DEPARTMENT | | | | | | OF | | | | | | PATHOLOGY | | + + + + + + + + | Specimen | + + | | + + + + + + + | Performing | Address | City/State/Zipcode | Phone Number | | Organization | | | | + + + + + | [facility] DEPARTMENT OF | [address] | [place] [address] | | | PATHOLOGY | [address] | | | + + + + + | [facility] | [address] | [place] [address] | | | PATHOLOGY | [address] | | | + + + + + PHOSPHORUS, PLASMA (03/04/2006 7:05 AM PDT) + +-------+ + + + | Component | Value | Ref Range | Performed | Pathologist | | | | | At | Signature | + +-------+ + + + | PHOSPHORUS, | 4.1 | 2.4 - 4.7 mg/dL | [facility] | | | PLASMA | | | DEPARTMENT | | | (LAB) | | | OF | | | | | | PATHOLOGY | | + +-------+ + + + + + | Specimen | + + | | + + + + + + + | Performing | Address | City/State/Zipcode | Phone Number | | Organization | | | | + + + + + | [facility] | [address] | [place] [address] | | | PATHOLOGY | [address] | | | + + + + + | [facility] | [facility] [address] | [place] [address] | | | PATHOLOGY | [address] | | | + + + + + BASIC METABOLIC SET (03/04/2006 7:05 AM PDT) + +---------+ + + + | Component | Value | Ref Range | Performed | Pathologist | | | | | At | Signature | + +---------+ + + + | GLUCOSE, | 114 (H) | 65 - 110 mg/dL | [facility] | | | PLASMA | | | DEPARTMENT | | | (LAB) | | | OF | | | | | | PATHOLOGY | | + +---------+ + + + | BUN, PLASMA | 15 | 6 - 20 mg/dL | [facility] | | | (LAB) | | | DEPARTMENT | | | | | | OF | | | | | | PATHOLOGY | | + +---------+ + + + | CREATININE | 0.5 (L) | 0.7 - 1.3 mg/dL | [facility] | | | PLASMA | | | DEPARTMENT | | | (LAB) | | | OF | | | | | | PATHOLOGY | | + +---------+ + + + | SODIUM, | 133 (L) | 136 - 145 | [facility] | | | PLASMA | | mmol/L | DEPARTMENT | | | (LAB) | | | OF | | | | | | PATHOLOGY | | + +---------+ + + + | POTASSIUM, | 3.8 | 3.5 - 5.1 | [facility] | | | PLASMA | | mmol/L | DEPARTMENT | | | (LAB) | | | OF | | | | | | PATHOLOGY | | + +---------+ + + + | CHLORIDE, | 96 (L) | 98 - 107 mmol/L | [facility] | | | PLASMA | | | DEPARTMENT | | | (LAB) | | | OF | | | | | | PATHOLOGY | | + +---------+ + + + | TOTAL CO2, | 25 | 23 - 29 mmol/L | [facility] | | | PLASMA | | | DEPARTMENT | | | (LAB) | | | OF | | | | | | PATHOLOGY | | + +---------+ + + + | CALCIUM, | 8.8 | 8.5 - 10.5 | [facility] | | | PLASMA | | mg/dL | DEPARTMENT | | | (LAB) | | | OF | | | | | | PATHOLOGY | | + +---------+ + + + + + | Specimen | + + | | + + + + + + + | Performing | Address | City/State/Zipcode | Phone Number | | Organization | | | | + + + + + | [facility] | [address] [place] [address] [address] | [place] [address] | | | PATHOLOGY | [address] | | | + + + + + | [facility] DEPARTMENT OF | [address] [place] [address] [address] | [place] [address] | | | PATHOLOGY | [address] | | | + + + + + CBC ONLY WITH PLATELET (03/03/2006 6:45 AM PDT) + + + + + + | Component | Value | Ref Range | Performed | Pathologist | | | | | At | Signature | + + + + + + | WHITE CELL | 12.0 (H) | 4.4 - 11.0 K/cu | [facility] | | | COUNT | | mm | DEPARTMENT | | | | | | OF | | | | | | PATHOLOGY | | + + + + + + | RED CELL | 3.68 (L) | 4.50 - 5.90 | [facility] | | | COUNT | | M/cu mm | DEPARTMENT | | | | | | OF | | | | | | PATHOLOGY | | + + + + + + | HEMOGLOBIN | 11.7 (L) | 13.5 - 17.5 | [facility] | | | | | g/dL | DEPARTMENT | | | | | | OF | | | | | | PATHOLOGY | | + + + + + + | HEMATOCRIT | 34.2 (L) | 41.0 - 53.0 % | [facility] | | | | | | DEPARTMENT | | | | | | OF | | | | | | PATHOLOGY | | + + + + + + | MCV | 92.7 | 80.0 - 96.0 fL | [facility] | | | | | | DEPARTMENT | | | | | | OF | | | | | | PATHOLOGY | | + + + + + + | MCHC | 34.4 | 33.4 - 35.5 | [facility] | | | | | g/dL | DEPARTMENT | | | | | | OF | | | | | | PATHOLOGY | | + + + + + + | RDW | 13.3 | 11.5 - 15.0 % | [facility] | | | | | | DEPARTMENT | | | | | | OF | | | | | | PATHOLOGY | | + + + + + + | PLATELET | 685 (H) | 150 - 400 K/cu | [facility] | | | COUNT | | mm | DEPARTMENT | | | | | | OF | | | | | | PATHOLOGY | | + + + + + + + + | Specimen | + + | | + + + + + + + | Performing | Address | City/State/Zipcode | Phone Number | | Organization | | | | + + + + + | [facility] | [address] | [place] [address] | | | PATHOLOGY | [address] | | | + + + + + | [facility] | [address] | [place] [address] | | | PATHOLOGY | [address] | | | + + + + + MAGNESIUM, PLASMA (03/02/2006 6:55 AM PDT) + +-------+ + + + | Component | Value | Ref Range | Performed | Pathologist | | | | | At | Signature | + +-------+ + + + | MAGNESIUM,P | 2.3 | 1.8 - 2.5 mg/dL | [facility] | | | LASMA | | | DEPARTMENT | | | | | | OF | | | | | | PATHOLOGY | | + +-------+ + + + + + | Specimen | + + | | + + + + + + + | Performing | Address | City/State/Zipcode | Phone Number | | Organization | | | | + + + + + | [facility] | [address] | [place] [address] | | | PATHOLOGY | [address] | | | + + + + + | [facility] | [address] | [place] [address] | | | PATHOLOGY | [address] | | | + + + + + PHOSPHORUS, PLASMA (03/02/2006 6:55 AM PDT) + +-------+ + + + | Component | Value | Ref Range | Performed | Pathologist | | | | | At | Signature | + +-------+ + + + | PHOSPHORUS, | 4.1 | 2.4 - 4.7 mg/dL | [facility] | | | PLASMA | | | DEPARTMENT | | | (LAB) | | | OF | | | | | | PATHOLOGY | | + +-------+ + + + + + | Specimen | + + | | + + + + + + + | Performing | Address | City/State/Zipcode | Phone Number | | Organization | | | | + + + + + | [facility] | [address] | [place] [address] | | | PATHOLOGY | [address] | | | + + + + + | [facility] | [address] | [place] [address] | | | PATHOLOGY | [address] | | | + + + + + CBC ONLY WITH PLATELET (03/02/2006 6:55 AM PDT) + + + + + + | Component | Value | Ref Range | Performed | Pathologist | | | | | At | Signature | + + + + + + | WHITE CELL | 12.1 (H) | 4.4 - 11.0 K/cu | [facility] | | | COUNT | | mm | DEPARTMENT | | | | | | OF | | | | | | PATHOLOGY | | + + + + + + | RED CELL | 3.91 (L) | 4.50 - 5.90 | [facility] | | | COUNT | | M/cu mm | DEPARTMENT | | | | | | OF | | | | | | PATHOLOGY | | + + + + + + | HEMOGLOBIN | 12.5 (L) | 13.5 - 17.5 | [facility] | | | | | g/dL | DEPARTMENT | | | | | | OF | | | | | | PATHOLOGY | | + + + + + + | HEMATOCRIT | 36.4 (L) | 41.0 - 53.0 % | [facility] | | | | | | DEPARTMENT | | | | | | OF | | | | | | PATHOLOGY | | + + + + + + | MCV | 93.0 | 80.0 - 96.0 fL | [facility] | | | | | | DEPARTMENT | | | | | | OF | | | | | | PATHOLOGY | | + + + + + + | MCHC | 34.4 | 33.4 - 35.5 | [facility] | | | | | g/dL | DEPARTMENT | | | | | | OF | | | | | | PATHOLOGY | | + + + + + + | RDW | 13.2 | 11.5 - 15.0 % | [facility] | | | | | | DEPARTMENT | | | | | | OF | | | | | | PATHOLOGY | | + + + + + + | PLATELET | 679 (H) | 150 - 400 K/cu | [facility] | | | COUNT | | mm | DEPARTMENT | | | | | | OF | | | | | | PATHOLOGY | | + + + + + + + + | Specimen | + + | | + + + + + + + | Performing | Address | City/State/Zipcode | Phone Number | | Organization | | | | + + + + + | [facility] | [address] | [place] [address] | | | PATHOLOGY | [address] | | | + + + + + | [facility]MENT | [address] | [place] [address] | | | PATHOLOGY | [address] | | | + + + + + BASIC METABOLIC SET (03/02/2006 6:55 AM PDT) + +---------+ + + + | Component | Value | Ref Range | Performed | Pathologist | | | | | At | Signature | + +---------+ + + + | GLUCOSE, | 99 | 65 - 110 mg/dL | [facility] | | | PLASMA | | | DEPARTMENT | | | (LAB) | | | OF | | | | | | PATHOLOGY | | + +---------+ + + + | BUN, PLASMA | 15 | 6 - 20 mg/dL | [facility] | | | (LAB) | | | DEPARTMENT | | | | | | OF | | | | | | PATHOLOGY | | + +---------+ + + + | CREATININE | 0.6 (L) | 0.7 - 1.3 mg/dL | [facility] | | | PLASMA | | | DEPARTMENT | | | (LAB) | | | OF | | | | | | PATHOLOGY | | + +---------+ + + + | SODIUM, | 135 (L) | 136 - 145 | [facility] | | | PLASMA | | mmol/L | DEPARTMENT | | | (LAB) | | | OF | | | | | | PATHOLOGY | | + +---------+ + + + | POTASSIUM, | 4.6 | 3.5 - 5.1 | [facility] | | | PLASMA | | mmol/L | DEPARTMENT | | | (LAB) | | | OF | | | | | | PATHOLOGY | | + +---------+ + + + | CHLORIDE, | 103 | 98 - 107 mmol/L | [facility] | | | PLASMA | | | DEPARTMENT | | | (LAB) | | | OF | | | | | | PATHOLOGY | | + +---------+ + + + | TOTAL CO2, | 26 | 23 - 29 mmol/L | [facility] | | | PLASMA | | | DEPARTMENT | | | (LAB) | | | OF | | | | | | PATHOLOGY | | + +---------+ + + + | CALCIUM, | 8.8 | 8.5 - 10.5 | [facility] | | | PLASMA | | mg/dL | DEPARTMENT | | | (LAB) | | | OF | | | | | | PATHOLOGY | | + +---------+ + + + + + | Specimen | + + | | + + + + + + + | Performing | Address | City/State/Zipcode | Phone Number | | Organization | | | | + + + + + | [facility]MENT [facility] | [address] | [place] [address] | | | PATHOLOGY | [address] | | | + + + + + | [facility] DEPARTMENT OF | [address] | [place] [address] | | | PATHOLOGY | [address] | | | + + + + + PHOSPHORUS, PLASMA (02/27/2006 6:36 AM PDT) + +-------+ + + + | Component | Value | Ref Range | Performed | Pathologist | | | | | At | Signature | + +-------+ + + + | PHOSPHORUS, | 3.9 | 2.4 - 4.7 mg/dL | [facility] | | | PLASMA | | | DEPARTMENT | | | (LAB) | | | OF | | | | | | PATHOLOGY | | + +-------+ + + + + + | Specimen | + + | | + + + + + + + | Performing | Address | City/State/Zipcode | Phone Number | | Organization | | | | + + + + + | [facility] | [facility] | [place] [address] | | | PATHOLOGY | [address] | | | + + + + + | [facility] DEPARTMENT OF | [address] | [place] [address] | | | PATHOLOGY | [address] | | | + + + + + MAGNESIUM, PLASMA (02/27/2006 6:36 AM PDT) + +-------+ + + + | Component | Value | Ref Range | Performed | Pathologist | | | | | At | Signature | + +-------+ + + + | MAGNESIUM,P | 2.2 | 1.8 - 2.5 mg/dL | [facility] | | | LASMA | | | DEPARTMENT | | | | | | OF | | | | | | PATHOLOGY | | + +-------+ + + + + + | Specimen | + + | | + + + + + + + | Performing | Address | City/State/Zipcode | Phone Number | | Organization | | | | + + + + + | [facility] DEPARTMENT OF | [address] | [place] [address] | | | PATHOLOGY | [address] | | | + + + + + | [facility]MENT [facility] | [address] | [place] [address] | | | PATHOLOGY | [address] | | | + + + + + BASIC METABOLIC SET (02/27/2006 6:36 AM PDT) + +---------+ + + + | Component | Value | Ref Range | Performed | Pathologist | | | | | At | Signature | + +---------+ + + + | GLUCOSE, | 109 | 65 - 110 mg/dL | [facility] | | | PLASMA | | | DEPARTMENT | | | (LAB) | | | OF | | | | | | PATHOLOGY | | + +---------+ + + + | BUN, PLASMA | 13 | 6 - 20 mg/dL | [facility] | | | (LAB) | | | DEPARTMENT | | | | | | OF | | | | | | PATHOLOGY | | + +---------+ + + + | CREATININE | 0.6 (L) | 0.7 - 1.3 mg/dL | [facility] | | | PLASMA | | | DEPARTMENT | | | (LAB) | | | OF | | | | | | PATHOLOGY | | + +---------+ + + + | SODIUM, | 136 | 136 - 145 | [facility] | | | PLASMA | | mmol/L | DEPARTMENT | | | (LAB) | | | OF | | | | | | PATHOLOGY | | + +---------+ + + + | POTASSIUM, | 4.2 | 3.5 - 5.1 | [facility] | | | PLASMA | | mmol/L | DEPARTMENT | | | (LAB) | | | OF | | | | | | PATHOLOGY | | + +---------+ + + + | CHLORIDE, | 104 | 98 - 107 mmol/L | [facility] | | | PLASMA | | | DEPARTMENT | | | (LAB) | | | OF | | | | | | PATHOLOGY | | + +---------+ + + + | TOTAL CO2, | 26 | 23 - 29 mmol/L | [facility] | | | PLASMA | | | DEPARTMENT | | | (LAB) | | | OF | | | | | | PATHOLOGY | | + +---------+ + + + | CALCIUM, | 8.3 (L) | 8.5 - 10.5 | [facility] | | | PLASMA | | mg/dL | DEPARTMENT | | | (LAB) | | | OF | | | | | | PATHOLOGY | | + +---------+ + + + + + | Specimen | + + | | + + + + + + + | Performing | Address | City/State/Zipcode | Phone Number | | Organization | | | | + + + + + | [facility] | [address] | [place] [address] | | | PATHOLOGY | [address] | | | + + + + + | [facility] | [address] | [place] [address] | | | PATHOLOGY | [address] | | | + + + + + CBC ONLY WITH PLATELET (02/27/2006 6:36 AM PDT) + + + + + + | Component | Value | Ref Range | Performed | Pathologist | | | | | At | Signature | + + + + + + | WHITE CELL | 10.7 | 4.4 - 11.0 K/cu | [facility] | | | COUNT | | mm | DEPARTMENT | | | | | | OF | | | | | | PATHOLOGY | | + + + + + + | RED CELL | 3.39 (L) | 4.50 - 5.90 | [facility] | | | COUNT | | M/cu mm | DEPARTMENT | | | | | | OF | | | | | | PATHOLOGY | | + + + + + + | HEMOGLOBIN | 10.9 (L) | 13.5 - 17.5 | [facility] | | | | | g/dL | DEPARTMENT | | | | | | OF | | | | | | PATHOLOGY | | + + + + + + | HEMATOCRIT | 31.5 (L) | 41.0 - 53.0 % | [facility] | | | | | | DEPARTMENT | | | | | | OF | | | | | | PATHOLOGY | | + + + + + + | MCV | 92.9 | 80.0 - 96.0 fL | [facility] | | | | | | DEPARTMENT | | | | | | OF | | | | | | PATHOLOGY | | + + + + + + | MCHC | 34.5 | 33.4 - 35.5 | [facility] | | | | | g/dL | DEPARTMENT | | | | | | OF | | | | | | PATHOLOGY | | + + + + + + | RDW | 13.3 | 11.5 - 15.0 % | [facility] | | | | | | DEPARTMENT | | | | | | OF | | | | | | PATHOLOGY | | + + + + + + | PLATELET | 799 (H) | 150 - 400 K/cu | [facility] | | | COUNT | | mm | DEPARTMENT | | | | | | OF | | | | | | PATHOLOGY | | + + + + + + + + | Specimen | + + | | + + + + + + + | Performing | Address | City/State/Zipcode | Phone Number | | Organization | | | | + + + + + | [facility] | [address] | [place] [address] | | | PATHOLOGY | [address] | | | + + + + + | [facility] | [address] | [place] [address] | | | PATHOLOGY | [address] | | | + + + + + PHOSPHORUS, PLASMA (02/25/2006 6:36 AM PDT) + +-------+ + + + | Component | Value | Ref Range | Performed | Pathologist | | | | | At | Signature | + +-------+ + + + | PHOSPHORUS, | 3.5 | 2.4 - 4.7 mg/dL | [facility] | | | PLASMA | | | DEPARTMENT | | | (LAB) | | | OF | | | | | | PATHOLOGY | | + +-------+ + + + + + | Specimen | + + | | + + + + + + + | Performing | Address | City/State/Zipcode | Phone Number | | Organization | | | | + + + + + | [facility] DEPARTMENT OF | [address] | [place] [address] | | | PATHOLOGY | [address] | | | + + + + + | [facility] DEPARTMENT OF | [address] | [place] [address] | | | PATHOLOGY | [address] | | | + + + + + MAGNESIUM, PLASMA (02/25/2006 6:36 AM PDT) + +-------+ + + + | Component | Value | Ref Range | Performed | Pathologist | | | | | At | Signature | + +-------+ + + + | MAGNESIUM,P | 2.2 | 1.8 - 2.5 mg/dL | [facility] | | | LASMA | | | DEPARTMENT | | | | | | OF | | | | | | PATHOLOGY | | + +-------+ + + + + + | Specimen | + + | | + + + + + + + | Performing | Address | City/State/Zipcode | Phone Number | | Organization | | | | + + + + + | [facility] DEPARTMENT OF | [address] | [place] [address] | | | PATHOLOGY | [address] | | | + + + + + | [facility] | [address] | [place] [address] | | | PATHOLOGY | [address] | | | + + + + + BASIC METABOLIC SET (02/25/2006 6:36 AM PDT) + +---------+ + + + | Component | Value | Ref Range | Performed | Pathologist | | | | | At | Signature | + +---------+ + + + | GLUCOSE, | 114 (H) | 65 - 110 mg/dL | [facility] | | | PLASMA | | | DEPARTMENT | | | (LAB) | | | OF | | | | | | PATHOLOGY | | + +---------+ + + + | BUN, PLASMA | 15 | 6 - 20 mg/dL | [facility] | | | (LAB) | | | DEPARTMENT | | | | | | OF | | | | | | PATHOLOGY | | + +---------+ + + + | CREATININE | 0.6 (L) | 0.7 - 1.3 mg/dL | [facility] | | | PLASMA | | | DEPARTMENT | | | (LAB) | | | OF | | | | | | PATHOLOGY | | + +---------+ + + + | SODIUM, | 135 (L) | 136 - 145 | [facility] | | | PLASMA | | mmol/L | DEPARTMENT | | | (LAB) | | | OF | | | | | | PATHOLOGY | | + +---------+ + + + | POTASSIUM, | 4.2 | 3.5 - 5.1 | [facility] | | | PLASMA | | mmol/L | DEPARTMENT | | | (LAB) | | | OF | | | | | | PATHOLOGY | | + +---------+ + + + | CHLORIDE, | 104 | 98 - 107 mmol/L | [facility] | | | PLASMA | | | DEPARTMENT | | | (LAB) | | | OF | | | | | | PATHOLOGY | | + +---------+ + + + | TOTAL CO2, | 27 | 23 - 29 mmol/L | [facility] | | | PLASMA | | | DEPARTMENT | | | (LAB) | | | OF | | | | | | PATHOLOGY | | + +---------+ + + + | CALCIUM, | 8.0 (L) | 8.5 - 10.5 | [facility] | | | PLASMA | | mg/dL | DEPARTMENT | | | (LAB) | | | OF | | | | | | PATHOLOGY | | + +---------+ + + + + + | Specimen | + + | | + + + + + + + | Performing | Address | City/State/Zipcode | Phone Number | | Organization | | | | + + + + + | [facility] DEPARTMENT OF | [facility] | [place] [address] | | | PATHOLOGY | [address] | | | + + + + + | [facility] DE[facility]MENT OF | [facility] | [place] [address] | | | PATHOLOGY | [address] | | | + + + + + CBC ONLY WITH PLATELET (02/25/2006 6:36 AM PDT) + + + + + + | Component | Value | Ref Range | Performed | Pathologist | | | | | At | Signature | + + + + + + | WHITE CELL | 14.4 (H) | 4.4 - 11.0 K/cu | [facility] | | | COUNT | | mm | DEPARTMENT | | | | | | OF | | | | | | PATHOLOGY | | + + + + + + | RED CELL | 3.39 (L) | 4.50 - 5.90 | [facility] | | | COUNT | | M/cu mm | DEPARTMENT | | | | | | OF | | | | | | PATHOLOGY | | + + + + + + | HEMOGLOBIN | 10.9 (L) | 13.5 - 17.5 | [facility] | | | | | g/dL | DEPARTMENT | | | | | | OF | | | | | | PATHOLOGY | | + + + + + + | HEMATOCRIT | 31.7 (L) | 41.0 - 53.0 % | [facility] | | | | | | DEPARTMENT | | | | | | OF | | | | | | PATHOLOGY | | + + + + + + | MCV | 93.6 | 80.0 - 96.0 fL | [facility] | | | | | | DEPARTMENT | | | | | | OF | | | | | | PATHOLOGY | | + + + + + + | MCHC | 34.5 | 33.4 - 35.5 | [facility] | | | | | g/dL | DEPARTMENT | | | | | | OF | | | | | | PATHOLOGY | | + + + + + + | RDW | 13.7 | 11.5 - 15.0 % | [facility] | | | | | | DEPARTMENT | | | | | | OF | | | | | | PATHOLOGY | | + + + + + + | PLATELET | 900 (H) | 150 - 400 K/cu | [facility] | | | COUNT | | mm | DEPARTMENT | | | | | | OF | | | | | | PATHOLOGY | | + + + + + + + + | Specimen | + + | | + + + + + + + | Performing | Address | City/State/Zipcode | Phone Number | | Organization | | | | + + + + + | [facility] DEPARTMENT OF | [address] | [place] [address] | | | PATHOLOGY | [address] | | | + + + + + | [facility] DE[facility]MENT OF | [address] | [place] [address] | | | PATHOLOGY | [address] | | | + + + + + CHEST 1 VIEW (02/24/2006 12:36 PM PDT) + + + + + + | Component | Value | Ref Range | Performed | Pathologist | | | | | At | Signature | + + + + + + | CHEST, 1 | Radiologist 1: RAMÍREZ, | | | | | VIEW | SHUKRI HODGE, | | | | | | MDExamination: Chest, | | | | | | one view AP Comparison: | | | | | | 02-21-2006 Findings: | | | | | | Tracheostomy position is | | | | | | stable. The left | | | | | | lung isclear. Volume | | | | | | loss in the right | | | | | | hemithorax persists | | | | | | withsuspected right | | | | | | pleural effusion. | | | | | | Impression: No interim | | | | | | change. | | | | + + + + + + + + | Specimen | + + | | + + + +---------+ + + | Performing | Address | City/State/Zipcode | Phone Number | | Organization | | | | + +---------+ + + | [facility] DEPARTMENT OF | | | | | RADIOLOGY | | | | + +---------+ + + SLIDE REVIEW (02/23/2006 9:05 AM PDT) + + | Specimen | + + | | + + + + + | Narrative | Performed At | + + + | * Corrected 02/23/06 10:42: GREGORY ALEJANDRO, prev report: Slide | [facility] | | review pending. | DEPARTMENT OF | | | PATHOLOGY | + + + + + + + + | Performing | Address | City/State/Zipcode | Phone Number | | Organization | | | | + + + + + | [facility] DEPARTMENT OF | [address] | [place] [address] | | | PATHOLOGY | [address] | | | + + + + + | [facility] DEPARTMENT OF | [address] | [place] [address] | | | PATHOLOGY | [address] | | | + + + + + MAGNESIUM, PLASMA (02/23/2006 9:05 AM PDT) + +-------+ + + + | Component | Value | Ref Range | Performed | Pathologist | | | | | At | Signature | + +-------+ + + + | MAGNESIUM,P | 2.3 | 1.8 - 2.5 mg/dL | [facility] | | | LASMA | | | DEPARTMENT | | | | | | OF | | | | | | PATHOLOGY | | + +-------+ + + + + + | Specimen | + + | | + + + + + + + | Performing | Address | City/State/Zipcode | Phone Number | | Organization | | | | + + + + + | [facility] | [address] | [place] [address] | | | PATHOLOGY | [address] | | | + + + + + | [facility] | [address] | [place] [address] | | | PATHOLOGY | [address] | | | + + + + + PHOSPHORUS, PLASMA (02/23/2006 9:05 AM PDT) + +-------+ + + + | Component | Value | Ref Range | Performed | Pathologist | | | | | At | Signature | + +-------+ + + + | PHOSPHORUS, | 2.8 | 2.4 - 4.7 mg/dL | [facility] | | | PLASMA | | | DEPARTMENT | | | (LAB) | | | OF | | | | | | PATHOLOGY | | + +-------+ + + + + + | Specimen | + + | | + + + + + + + | Performing | Address | City/State/Zipcode | Phone Number | | Organization | | | | + + + + + | [facility] DEPARTMENT OF | [address] | [place] [address] | | | PATHOLOGY | [address] | | | + + + + + | [facility] DE[facility]MENT OF | [address] | [place] [address] | | | PATHOLOGY | [address] | | | + + + + + DIFFERENTIAL (02/23/2006 9:05 AM PDT) + + + + + + | Component | Value | Ref Range | Performed | Pathologist | | | | | At | Signature | + + + + + + | NEUTROPHIL | 79 (H) | 50 - 70 % | [facility] | | | % | | | DEPARTMENT | | | | | | OF | | | | | | PATHOLOGY | | + + + + + + | LYMPHOCYTE | 11 (L) | 18 - 42 % | [facility] | | | % | | | DEPARTMENT | | | | | | OF | | | | | | PATHOLOGY | | + + + + + + | MONOCYTE % | 8 | 2 - 8 % | [facility] | | | | | | DEPARTMENT | | | | | | OF | | | | | | PATHOLOGY | | + + + + + + | EOS % | 2 | 1 - 3 % | [facility] | | | | | | DEPARTMENT | | | | | | OF | | | | | | PATHOLOGY | | + + + + + + | BASO % | 1 | <3 % | [facility] | | | | | | DEPARTMENT | | | | | | OF | | | | | | PATHOLOGY | | + + + + + + | NEUTROPHIL | 11.5 (H) | 1.8 - 7.7 K/cu | [facility] | | | # | | mm | DEPARTMENT | | | | | | OF | | | | | | PATHOLOGY | | + + + + + + | LYMPHOCYTE | 1.6 | 1.0 - 4.8 K/cu | [facility] | | | # | | mm | DEPARTMENT | | | | | | OF | | | | | | PATHOLOGY | | + + + + + + | MONOCYTE # | 1.2 (H) | 0.1 - 0.6 K/cu | [facility] | | | | | mm | DEPARTMENT | | | | | | OF | | | | | | PATHOLOGY | | + + + + + + | EOS # | 0.3 | <0.6 K/cu mm | [facility] | | | | | | DEPARTMENT | | | | | | OF | | | | | | PATHOLOGY | | + + + + + + | BASO # | 0.1 | <0.2 | [facility] | | | | | | DEPARTMENT | | | | | | OF | | | | | | PATHOLOGY | | + + + + + + + + | Specimen | + + | | + + + + + | Narrative | Performed At | + + + | * Corrected 02/23/06 10:42: GREGORY COMMENTS, prev report: Slide | [facility] | | review pending. | DEPARTMENT OF | | | PATHOLOGY | + + + + + + + + | Performing | Address | City/State/Zipcode | Phone Number | | Organization | | | | + + + + + | [facility] DEPARTMENT OF | [address] | [place] [address] | | | PATHOLOGY | [address] | | | + + + + + | [facility] DEPARTMENT OF | [address] | [place] [address] | | | PATHOLOGY | [address] | | | + + + + + BASIC METABOLIC SET (02/23/2006 9:05 AM PDT) + +---------+ + + + | Component | Value | Ref Range | Performed | Pathologist | | | | | At | Signature | + +---------+ + + + | GLUCOSE, | 121 (H) | 65 - 110 mg/dL | [facility] | | | PLASMA | | | DEPARTMENT | | | (LAB) | | | OF | | | | | | PATHOLOGY | | + +---------+ + + + | BUN, PLASMA | 13 | 6 - 20 mg/dL | [facility] | | | (LAB) | | | DEPARTMENT | | | | | | OF | | | | | | PATHOLOGY | | + +---------+ + + + | CREATININE | 0.6 (L) | 0.7 - 1.3 mg/dL | [facility] | | | PLASMA | | | DEPARTMENT | | | (LAB) | | | OF | | | | | | PATHOLOGY | | + +---------+ + + + | SODIUM, | 134 (L) | 136 - 145 | [facility] | | | PLASMA | | mmol/L | DEPARTMENT | | | (LAB) | | | OF | | | | | | PATHOLOGY | | + +---------+ + + + | POTASSIUM, | 4.0 | 3.5 - 5.1 | [facility] | | | PLASMA | | mmol/L | DEPARTMENT | | | (LAB) | | | OF | | | | | | PATHOLOGY | | + +---------+ + + + | CHLORIDE, | 103 | 98 - 107 mmol/L | [facility] | | | PLASMA | | | DEPARTMENT | | | (LAB) | | | OF | | | | | | PATHOLOGY | | + +---------+ + + + | TOTAL CO2, | 25 | 23 - 29 mmol/L | [facility] | | | PLASMA | | | DEPARTMENT | | | (LAB) | | | OF | | | | | | PATHOLOGY | | + +---------+ + + + | CALCIUM, | 7.6 (L) | 8.5 - 10.5 | [facility] | | | PLASMA | | mg/dL | DEPARTMENT | | | (LAB) | | | OF | | | | | | PATHOLOGY | | + +---------+ + + + + + | Specimen | + + | | + + + + + + + | Performing | Address | City/State/Zipcode | Phone Number | | Organization | | | | + + + + + | [facility] DEPARTMENT OF | [address] | [place] [address] | | | PATHOLOGY | [address] | | | + + + + + | [facility] DEPARTMENT OF | [address] | [place] [address] | | | PATHOLOGY | [address] | | | + + + + + CBC, WITH DIFFERENTIAL (02/23/2006 9:05 AM PDT) + + + + + + | Component | Value | Ref Range | Performed | Pathologist | | | | | At | Signature | + + + + + + | WHITE CELL | 14.6 (H) | 4.4 - 11.0 K/cu | [facility] | | | COUNT | | mm | DEPARTMENT | | | | | | OF | | | | | | PATHOLOGY | | + + + + + + | RED CELL | 3.15 (L) | 4.50 - 5.90 | [facility] | | | COUNT | | M/cu mm | DEPARTMENT | | | | | | OF | | | | | | PATHOLOGY | | + + + + + + | HEMOGLOBIN | 10.2 (L) | 13.5 - 17.5 | [facility] | | | | | g/dL | DEPARTMENT | | | | | | OF | | | | | | PATHOLOGY | | + + + + + + | HEMATOCRIT | 29.5 (L) | 41.0 - 53.0 % | [facility] | | | | | | DEPARTMENT | | | | | | OF | | | | | | PATHOLOGY | | + + + + + + | MCV | 93.7 | 80.0 - 96.0 fL | [facility] | | | | | | DEPARTMENT | | | | | | OF | | | | | | PATHOLOGY | | + + + + + + | MCHC | 34.6 | 33.4 - 35.5 | [facility] | | | | | g/dL | DEPARTMENT | | | | | | OF | | | | | | PATHOLOGY | | + + + + + + | RDW | 13.7 | 11.5 - 15.0 % | [facility] | | | | | | DEPARTMENT | | | | | | OF | | | | | | PATHOLOGY | | + + + + + + | PLATELET | 789 (H) | 150 - 400 K/cu | [facility] | | | COUNT | | mm | DEPARTMENT | | | | | | OF | | | | | | PATHOLOGY | | + + + + + + | DIFF | <or= 10% bands seen on | | [facility] | | | COMMENTS | scan. | | DEPARTMENT | | | | | | OF | | | | | | PATHOLOGY | | + + + + + + | CBC | Final automated | | [facility] | | | COMMENTS | differential report. | | DEPARTMENT | | | | Smear reviewed. | | OF | | | | | | PATHOLOGY | | + + + + + + + + | Specimen | + + | | + + + + + | Narrative | Performed At | + + + | * Corrected 02/23/06 10:42: GREGORY COMMENTS, prev report: Slide | [facility] | | review pending. | DEPARTMENT OF | | | PATHOLOGY | + + + + + + + + | Performing | Address | City/State/Zipcode | Phone Number | | Organization | | | | + + + + + | [facility] DEPARTMENT OF | [address] | [place] [address] | | | PATHOLOGY | [address] | | | + + + + + | [facility] DEPARTMENT OF | [address] | [place] [address] | | | PATHOLOGY | [address] | | | + + + + + BASIC METABOLIC SET (02/22/2006 6:20 AM PDT) + +---------+ + + + | Component | Value | Ref Range | Performed | Pathologist | | | | | At | Signature | + +---------+ + + + | GLUCOSE, | 120 (H) | 65 - 110 mg/dL | [facility] | | | PLASMA | | | DEPARTMENT | | | (LAB) | | | OF | | | | | | PATHOLOGY | | + +---------+ + + + | BUN, PLASMA | 10 | 6 - 20 mg/dL | [facility] | | | (LAB) | | | DEPARTMENT | | | | | | OF | | | | | | PATHOLOGY | | + +---------+ + + + | CREATININE | 0.6 (L) | 0.7 - 1.3 mg/dL | [facility] | | | PLASMA | | | DEPARTMENT | | | (LAB) | | | OF | | | | | | PATHOLOGY | | + +---------+ + + + | SODIUM, | 133 (L) | 136 - 145 | [facility] | | | PLASMA | | mmol/L | DEPARTMENT | | | (LAB) | | | OF | | | | | | PATHOLOGY | | + +---------+ + + + | POTASSIUM, | 3.9 | 3.5 - 5.1 | [facility] | | | PLASMA | | mmol/L | DEPARTMENT | | | (LAB) | | | OF | | | | | | PATHOLOGY | | + +---------+ + + + | CHLORIDE, | 105 | 98 - 107 mmol/L | [facility] | | | PLASMA | | | DEPARTMENT | | | (LAB) | | | OF | | | | | | PATHOLOGY | | + +---------+ + + + | TOTAL CO2, | 26 | 23 - 29 mmol/L | [facility] | | | PLASMA | | | DEPARTMENT | | | (LAB) | | | OF | | | | | | PATHOLOGY | | + +---------+ + + + | CALCIUM, | 7.6 (L) | 8.5 - 10.5 | [facility] | | | PLASMA | | mg/dL | DEPARTMENT | | | (LAB) | | | OF | | | | | | PATHOLOGY | | + +---------+ + + + + + | Specimen | + + | | + + + + + + + | Performing | Address | City/State/Zipcode | Phone Number | | Organization | | | | + + + + + | [facility] DEPARTMENT OF | [address] | [place] [address] | | | PATHOLOGY | [address] | | | + + + + + | [facility] DEPARTMENT OF | [address] | [place] [address] | | | PATHOLOGY | [address] | | | + + + + + CBC ONLY WITH PLATELET (02/22/2006 6:20 AM PDT) + + + + + + | Component | Value | Ref Range | Performed | Pathologist | | | | | At | Signature | + + + + + + | WHITE CELL | 13.9 (H) | 4.4 - 11.0 K/cu | [facility] | | | COUNT | | mm | DEPARTMENT | | | | | | OF | | | | | | PATHOLOGY | | + + + + + + | RED CELL | 3.20 (L) | 4.50 - 5.90 | [facility] | | | COUNT | | M/cu mm | DEPARTMENT | | | | | | OF | | | | | | PATHOLOGY | | + + + + + + | HEMOGLOBIN | 10.4 (L) | 13.5 - 17.5 | [facility] | | | | | g/dL | DEPARTMENT | | | | | | OF | | | | | | PATHOLOGY | | + + + + + + | HEMATOCRIT | 29.8 (L) | 41.0 - 53.0 % | [facility] | | | | | | DEPARTMENT | | | | | | OF | | | | | | PATHOLOGY | | + + + + + + | MCV | 93.2 | 80.0 - 96.0 fL | [facility] | | | | | | DEPARTMENT | | | | | | OF | | | | | | PATHOLOGY | | + + + + + + | MCHC | 35.0 | 33.4 - 35.5 | [facility] | | | | | g/dL | DEPARTMENT | | | | | | OF | | | | | | PATHOLOGY | | + + + + + + | RDW | 13.6 | 11.5 - 15.0 % | [facility] | | | | | | DEPARTMENT | | | | | | OF | | | | | | PATHOLOGY | | + + + + + + | PLATELET | 678 (H) | 150 - 400 K/cu | [facility] | | | COUNT | | mm | DEPARTMENT | | | | | | OF | | | | | | PATHOLOGY | | + + + + + + + + | Specimen | + + | | + + + + + + + | Performing | Address | City/State/Zipcode | Phone Number | | Organization | | | | + + + + + | [facility] | [address] | [place] [address] | | | PATHOLOGY | [address] | | | + + + + + | [facility] | [address] | [place] [address] | | | PATHOLOGY | [address] | | | + + + + + VANCOMYCIN, TROUGH (02/21/2006 6:30 PM PDT) + +-------+ + + + | Component | Value | Ref Range | Performed | Pathologist | | | | | At | Signature | + +-------+ + + + | VANCOMYCIN, | 5.7 | 5.0 - 15.0 | [facility] | | | TROUGH | | ug/mL | DEPARTMENT | | | | | | OF | | | | | | PATHOLOGY | | + +-------+ + + + + + | Specimen | + + | | + + + + + + + | Performing | Address | City/State/Zipcode | Phone Number | | Organization | | | | + + + + + | [facility] | [address] | [place] [address] | | | PATHOLOGY | [address] | | | + + + + + | [facility] | [facility] [address] | [place] [address] | | | PATHOLOGY | [address] | | | + + + + + POTASSIUM, PLASMA (02/21/2006 9:45 AM PDT) + +-------+ + + + | Component | Value | Ref Range | Performed | Pathologist | | | | | At | Signature | + +-------+ + + + | POTASSIUM, | 3.8 | 3.5 - 5.1 | [facility] | | | PLASMA | | mmol/L | DEPARTMENT | | | (LAB) | | | OF | | | | | | PATHOLOGY | | + +-------+ + + + + + | Specimen | + + | | + + + + + + + | Performing | Address | City/State/Zipcode | Phone Number | | Organization | | | | + + + + + | [facility] | [address] | [place] [address] | | | PATHOLOGY | [address] | | | + + + + + | [facility] | [address] | [place] [address] | | | PATHOLOGY | [address] | | | + + + + + CHEST 1 VIEW (02/21/2006 7:14 AM PDT) + + + + + + | Component | Value | Ref Range | Performed | Pathologist | | | | | At | Signature | + + + + + + | CHEST, 1 | Radiologist 1: JEVON, | | | | | VIEW | GWENDOLYN Kerns, | | | | | | M.D.COMPARISON: [facility] | | | | | | rday. FINDINGS: AP | | | | | | chest | | | | | | submitted. Right-side | | | | | | d pleural effusion | | | | | | isslightly | | | | | | increased. Multiple | | | | | | right sided rib | | | | | | fractures are | | | | | | noted.Bibasilar | | | | | | atelectasis is | | | | | | noted. Cardiac | | | | | | silhouette is unchanged. | | | | | | IMPRESSION: | | | | | | 1. Increase in | | | | | | right-sided pleural | | | | | | effusion with | | | | | | adjacentatelectasis. | | | | | | Probable aspiration | | | | | | asymmetric in the right | | | | | | lowerlung zone is likely | | | | | | not changed. | | | | + + + + + + + + | Specimen | + + | | + + + +---------+ + + | Performing | Address | City/State/Zipcode | Phone Number | | Organization | | | | + +---------+ + + | [facility] | | | | | RADIOLOGY | | | | + +---------+ + + PHOSPHORUS, PLASMA (02/21/2006 3:20 AM PDT) + +-------+ + + + | Component | Value | Ref Range | Performed | Pathologist | | | | | At | Signature | + +-------+ + + + | PHOSPHORUS, | 2.9 | 2.4 - 4.7 mg/dL | [facility] | | | PLASMA | | | DEPARTMENT | | | (LAB) | | | OF | | | | | | PATHOLOGY | | + +-------+ + + + + + | Specimen | + + | | + + + + + + + | Performing | Address | City/State/Zipcode | Phone Number | | Organization | | | | + + + + + | [facility]MENT [facility] | [address] | [place] [address] | | | PATHOLOGY | [address] | | | + + + + + | [facility] DEPARTMENT [facility] | [address] | [place] [address] | | | PATHOLOGY | [address] | | | + + + + + MAGNESIUM, PLASMA (02/21/2006 3:20 AM PDT) + +-------+ + + + | Component | Value | Ref Range | Performed | Pathologist | | | | | At | Signature | + +-------+ + + + | MAGNESIUM,P | 2.1 | 1.8 - 2.5 mg/dL | [facility] | | | LASMA | | | DEPARTMENT | | | | | | OF | | | | | | PATHOLOGY | | + +-------+ + + + + + | Specimen | + + | | + + + + + + + | Performing | Address | City/State/Zipcode | Phone Number | | Organization | | | | + + + + + | [facility] DEPARTMENT OF | [address] | [place] [address] | | | PATHOLOGY | [address] | | | + + + + + | [facility] DEPARTMENT OF | [facility] | [place] [address] | | | PATHOLOGY | [address] | | | + + + + + CBC ONLY WITH PLATELET (02/21/2006 3:20 AM PDT) + + + + + + | Component | Value | Ref Range | Performed | Pathologist | | | | | At | Signature | + + + + + + | WHITE CELL | 12.4 (H) | 4.4 - 11.0 K/cu | [facility] | | | COUNT | | mm | DEPARTMENT | | | | | | OF | | | | | | PATHOLOGY | | + + + + + + | RED CELL | 3.05 (L) | 4.50 - 5.90 | [facility] | | | COUNT | | M/cu mm | DEPARTMENT | | | | | | OF | | | | | | PATHOLOGY | | + + + + + + | HEMOGLOBIN | 9.9 (L) | 13.5 - 17.5 | [facility] | | | | | g/dL | DEPARTMENT | | | | | | OF | | | | | | PATHOLOGY | | + + + + + + | HEMATOCRIT | 28.4 (L) | 41.0 - 53.0 % | [facility] | | | | | | DEPARTMENT | | | | | | OF | | | | | | PATHOLOGY | | + + + + + + | MCV | 93.0 | 80.0 - 96.0 fL | [facility] | | | | | | DEPARTMENT | | | | | | OF | | | | | | PATHOLOGY | | + + + + + + | MCHC | 34.9 | 33.4 - 35.5 | [facility] | | | | | g/dL | DEPARTMENT | | | | | | OF | | | | | | PATHOLOGY | | + + + + + + | RDW | 13.8 | 11.5 - 15.0 % | [facility] | | | | | | DEPARTMENT | | | | | | OF | | | | | | PATHOLOGY | | + + + + + + | PLATELET | 567 (H) | 150 - 400 K/cu | [facility] | | | COUNT | | mm | DEPARTMENT | | | | | | OF | | | | | | PATHOLOGY | | + + + + + + + + | Specimen | + + | | + + + + + + + | Performing | Address | City/State/Zipcode | Phone Number | | Organization | | | | + + + + + | [facility] DEPARTMENT OF | [address] | [place] [address] | | | PATHOLOGY | [address] | | | + + + + + | [facility] | [address] | [place] [address] | | | PATHOLOGY | [address] | | | + + + + + BASIC METABOLIC SET (02/21/2006 3:20 AM PDT) + +---------+ + + + | Component | Value | Ref Range | Performed | Pathologist | | | | | At | Signature | + +---------+ + + + | GLUCOSE, | 101 | 65 - 110 mg/dL | [facility] | | | PLASMA | | | DEPARTMENT | | | (LAB) | | | OF | | | | | | PATHOLOGY | | + +---------+ + + + | BUN, PLASMA | 11 | 6 - 20 mg/dL | [facility] | | | (LAB) | | | DEPARTMENT | | | | | | OF | | | | | | PATHOLOGY | | + +---------+ + + + | CREATININE | 0.6 (L) | 0.7 - 1.3 mg/dL | [facility] | | | PLASMA | | | DEPARTMENT | | | (LAB) | | | OF | | | | | | PATHOLOGY | | + +---------+ + + + | SODIUM, | 137 | 136 - 145 | [facility] | | | PLASMA | | mmol/L | DEPARTMENT | | | (LAB) | | | OF | | | | | | PATHOLOGY | | + +---------+ + + + | POTASSIUM, | 3.8 | 3.5 - 5.1 | [facility] | | | PLASMA | | mmol/L | DEPARTMENT | | | (LAB) | | | OF | | | | | | PATHOLOGY | | + +---------+ + + + | CHLORIDE, | 106 | 98 - 107 mmol/L | [facility] | | | PLASMA | | | DEPARTMENT | | | (LAB) | | | OF | | | | | | PATHOLOGY | | + +---------+ + + + | TOTAL CO2, | 26 | 23 - 29 mmol/L | [facility] | | | PLASMA | | | DEPARTMENT | | | (LAB) | | | OF | | | | | | PATHOLOGY | | + +---------+ + + + | CALCIUM, | 7.3 (L) | 8.5 - 10.5 | [facility] | | | PLASMA | | mg/dL | DEPARTMENT | | | (LAB) | | | OF | | | | | | PATHOLOGY | | + +---------+ + + + + + | Specimen | + + | | + + + + + + + | Performing | Address | City/State/Zipcode | Phone Number | | Organization | | | | + + + + + | [facility] DEPARTMENT OF | [address] | [place] [address] | | | PATHOLOGY | [address] | | | + + + + + | [facility] DEPARTMENT OF | [address] | [place] [address] | | | PATHOLOGY | [address] | | | + + + + + VANCOMYCIN, TROUGH (02/20/2006 8:45 AM PDT) + + + + + + | Component | Value | Ref Range | Performed | Pathologist | | | | | At | Signature | + + + + + + | VANCOMYCIN, | < 3.5 (L) | 5.0 - 15.0 | [facility] | | | TROUGH | | ug/mL | DEPARTMENT | | | | | | OF | | | | | | PATHOLOGY | | + + + + + + + + | Specimen | + + | | + + + + + + + | Performing | Address | City/State/Zipcode | Phone Number | | Organization | | | | + + + + + | [facility] | [address] | [place] [address] | | | PATHOLOGY | [address] | | | + + + + + | [facility] | [address] | [place] [address] | | | PATHOLOGY | [address] | | | + + + + + CHEST 1 VIEW (02/20/2006 5:30 AM PDT) + + + + + + | Component | Value | Ref Range | Performed | Pathologist | | | | | At | Signature | + + + + + + | CHEST, 1 | Radiologist 1: RASHMI, | | | | | VIEW | ÁNGELA SteinerEXAM: AP | | | | | | chest. COMPARISON: | | | | | | 02/19/06 INDICATION: | | | | | | Respiratory failure, | | | | | | aspiration FINDINGS: | | | | | | The tracheostomy tube | | | | | | and right sided PICC | | | | | | catheterare | | | | | | unchanged. Cardiac | | | | | | silhouette is | | | | | | normal. Right lower | | | | | | lobearea of | | | | | | consolidation is mildly | | | | | | improved. Mild left | | | | | | lower lobeconsolidation | | | | | | has also mildly | | | | | | improved. Right pleural | | | | | | effusion andmultiple | | | | | | right-sided rib | | | | | | fractures are again | | | | | | noted. There are | | | | | | nonew or developing | | | | | | areas of consolidation | | | | | | or atelectasis. | | | | | | IMPRESSION: 1. Interval | | | | | | improvement in the | | | | | | bilateral asymmetric | | | | | | areas ofconsolidation, | | | | | | characteristic for | | | | | | aspiration | | | | | | pneumonitis. No | | | | | | newarea of consolidation | | | | | | is developed. | | | | + + + + + + + + | Specimen | + + | | + + + +---------+ + + | Performing | Address | City/State/Zipcode | Phone Number | | Organization | | | | + +---------+ + + | [facility] DEPARTMENT OF | | | | | RADIOLOGY | | | | + +---------+ + + PHOSPHORUS, PLASMA (02/20/2006 3:15 AM PDT) + +-------+ + + + | Component | Value | Ref Range | Performed | Pathologist | | | | | At | Signature | + +-------+ + + + | PHOSPHORUS, | 3.0 | 2.4 - 4.7 mg/dL | [facility] | | | PLASMA | | | DEPARTMENT | | | (LAB) | | | OF | | | | | | PATHOLOGY | | + +-------+ + + + + + | Specimen | + + | | + + + + + + + | Performing | Address | City/State/Zipcode | Phone Number | | Organization | | | | + + + + + | [facility] DEPARTMENT OF | [address] | [place] [address] | | | PATHOLOGY | [address] | | | + + + + + | [facility] | [address] | [place] [address] | | | PATHOLOGY | [address] | | | + + + + + MAGNESIUM, PLASMA (02/20/2006 3:15 AM PDT) + +-------+ + + + | Component | Value | Ref Range | Performed | Pathologist | | | | | At | Signature | + +-------+ + + + | MAGNESIUM,P | 2.2 | 1.8 - 2.5 mg/dL | [facility] | | | LASMA | | | DEPARTMENT | | | | | | OF | | | | | | PATHOLOGY | | + +-------+ + + + + + | Specimen | + + | | + + + + + + + | Performing | Address | City/State/Zipcode | Phone Number | | Organization | | | | + + + + + | [facility] DEPARTMENT | [address] | [place] [address] | | | PATHOLOGY | [address] | | | + + + + + | [facility] DEPARTMENT OF | [address] | [place] [address] | | | PATHOLOGY | [address] | | | + + + + + CBC ONLY WITH PLATELET (02/20/2006 3:15 AM PDT) + + + + + + | Component | Value | Ref Range | Performed | Pathologist | | | | | At | Signature | + + + + + + | WHITE CELL | 13.4 (H) | 4.4 - 11.0 K/cu | [facility] | | | COUNT | | mm | DEPARTMENT | | | | | | OF | | | | | | PATHOLOGY | | + + + + + + | RED CELL | 3.19 (L) | 4.50 - 5.90 | [facility] | | | COUNT | | M/cu mm | DEPARTMENT | | | | | | OF | | | | | | PATHOLOGY | | + + + + + + | HEMOGLOBIN | 10.3 (L) | 13.5 - 17.5 | [facility] | | | | | g/dL | DEPARTMENT | | | | | | OF | | | | | | PATHOLOGY | | + + + + + + | HEMATOCRIT | 30.0 (L) | 41.0 - 53.0 % | [facility] | | | | | | DEPARTMENT | | | | | | OF | | | | | | PATHOLOGY | | + + + + + + | MCV | 93.9 | 80.0 - 96.0 fL | [facility] | | | | | | DEPARTMENT | | | | | | OF | | | | | | PATHOLOGY | | + + + + + + | MCHC | 34.2 | 33.4 - 35.5 | [facility] | | | | | g/dL | DEPARTMENT | | | | | | OF | | | | | | PATHOLOGY | | + + + + + + | RDW | 14.0 | 11.5 - 15.0 % | [facility] | | | | | | DEPARTMENT | | | | | | OF | | | | | | PATHOLOGY | | + + + + + + | PLATELET | 510 (H) | 150 - 400 K/cu | [facility] | | | COUNT | | mm | DEPARTMENT | | | | | | OF | | | | | | PATHOLOGY | | + + + + + + + + | Specimen | + + | | + + + + + + + | Performing | Address | City/State/Zipcode | Phone Number | | Organization | | | | + + + + + | [facility] | [address] | [place] [address] | | | PATHOLOGY | [address] | | | + + + + + | [facility] | [facility] | [place] [address] | | | PATHOLOGY | [address] | | | + + + + + BASIC METABOLIC SET (02/20/2006 3:15 AM PDT) + +---------+ + + + | Component | Value | Ref Range | Performed | Pathologist | | | | | At | Signature | + +---------+ + + + | GLUCOSE, | 132 (H) | 65 - 110 mg/dL | [facility] | | | PLASMA | | | DEPARTMENT | | | (LAB) | | | OF | | | | | | PATHOLOGY | | + +---------+ + + + | BUN, PLASMA | 13 | 6 - 20 mg/dL | [facility] | | | (LAB) | | | DEPARTMENT | | | | | | OF | | | | | | PATHOLOGY | | + +---------+ + + + | CREATININE | 0.5 (L) | 0.7 - 1.3 mg/dL | [facility] | | | PLASMA | | | DEPARTMENT | | | (LAB) | | | OF | | | | | | PATHOLOGY | | + +---------+ + + + | SODIUM, | 136 | 136 - 145 | [facility] | | | PLASMA | | mmol/L | DEPARTMENT | | | (LAB) | | | OF | | | | | | PATHOLOGY | | + +---------+ + + + | POTASSIUM, | 3.6 | 3.5 - 5.1 | [facility] | | | PLASMA | | mmol/L | DEPARTMENT | | | (LAB) | | | OF | | | | | | PATHOLOGY | | + +---------+ + + + | CHLORIDE, | 104 | 98 - 107 mmol/L | [facility] | | | PLASMA | | | DEPARTMENT | | | (LAB) | | | OF | | | | | | PATHOLOGY | | + +---------+ + + + | TOTAL CO2, | 25 | 23 - 29 mmol/L | [facility] | | | PLASMA | | | DEPARTMENT | | | (LAB) | | | OF | | | | | | PATHOLOGY | | + +---------+ + + + | CALCIUM, | 7.5 (L) | 8.5 - 10.5 | [facility] | | | PLASMA | | mg/dL | DEPARTMENT | | | (LAB) | | | OF | | | | | | PATHOLOGY | | + +---------+ + + + + + | Specimen | + + | | + + + + + + + | Performing | Address | City/State/Zipcode | Phone Number | | Organization | | | | + + + + + | [facility] | [address] | [place] [address] | | | PATHOLOGY | [address] | | | + + + + + | [facility] | [facility] | [place] [address] | | | PATHOLOGY | [address] | | | + + + + + POTASSIUM, PLASMA (02/19/2006 8:00 PM PDT) + +-------+ + + + | Component | Value | Ref Range | Performed | Pathologist | | | | | At | Signature | + +-------+ + + + | POTASSIUM, | 3.7 | 3.5 - 5.1 | [facility] | | | PLASMA | | mmol/L | DEPARTMENT | | | (LAB) | | | OF | | | | | | PATHOLOGY | | + +-------+ + + + + + | Specimen | + + | | + + + + + + + | Performing | Address | City/State/Zipcode | Phone Number | | Organization | | | | + + + + + | [facility] DE[facility]MENT [facility] | [address] | [place] [address] | | | PATHOLOGY | [address] | | | + + + + + | [facility] | [address] | [place] [address] | | | PATHOLOGY | [address] | | | + + + + + CHEST 1 VIEW (02/19/2006 2:13 PM PDT) + + + + + + | Component | Value | Ref Range | Performed | Pathologist | | | | | At | Signature | + + + + + + | CHEST, 1 | Radiologist 1: JEVON | | | | | VIEW | GWENDOLYN Kerns | | | | | | M.Rodney-Radiologist 2: | | | | | | GWENDOLYN ESCOTO, | | | | | | M.D.STUDY: AP chest | | | | | | radiograph 02/19/06 | | | | | | COMPARISON: 02/19/2006 | | | | | | FINDINGS: There has | | | | | | been further evolution | | | | | | of consolidation | | | | | | withinthe right mid and | | | | | | lower lung zone, and | | | | | | unchanged right rib | | | | | | fractures.The | | | | | | tracheostomy tube is | | | | | | unchanged in | | | | | | position. The | | | | | | cardiomediastinalsilhoue | | | | | | tte is stable. A new | | | | | | right sided PICC | | | | | | catheter terminates | | | | | | atthe caval atrial | | | | | | junction. IMPRESSION: | | | | | | 1. Right PICC | | | | | | catheter at the caval | | | | | | atrial junction. | | | | | | 2. Right mid and | | | | | | lower lung zone | | | | | | consolidation, likely | | | | | | contusion.Superimposed | | | | | | aspiration and/or | | | | | | pneumonia cannot be | | | | | | excluded. | | | | + + + + + + + + | Specimen | + + | | + + + +---------+ + + | Performing | Address | City/State/Zipcode | Phone Number | | Organization | | | | + +---------+ + + | [facility] DEPARTMENT OF | | | | | RADIOLOGY | | | | + +---------+ + + BASIC METABOLIC SET (02/19/2006 12:55 PM PDT) + +---------+ + + + | Component | Value | Ref Range | Performed | Pathologist | | | | | At | Signature | + +---------+ + + + | GLUCOSE, | 122 (H) | 65 - 110 mg/dL | [facility] | | | PLASMA | | | DEPARTMENT | | | (LAB) | | | OF | | | | | | PATHOLOGY | | + +---------+ + + + | BUN, PLASMA | 12 | 6 - 20 mg/dL | [facility] | | | (LAB) | | | DEPARTMENT | | | | | | OF | | | | | | PATHOLOGY | | + +---------+ + + + | CREATININE | 0.5 (L) | 0.7 - 1.3 mg/dL | [facility] | | | PLASMA | | | DEPARTMENT | | | (LAB) | | | OF | | | | | | PATHOLOGY | | + +---------+ + + + | SODIUM, | 135 (L) | 136 - 145 | [facility] | | | PLASMA | | mmol/L | DEPARTMENT | | | (LAB) | | | OF | | | | | | PATHOLOGY | | + +---------+ + + + | POTASSIUM, | 3.5 | 3.5 - 5.1 | [facility] | | | PLASMA | | mmol/L | DEPARTMENT | | | (LAB) | | | OF | | | | | | PATHOLOGY | | + +---------+ + + + | CHLORIDE, | 102 | 98 - 107 mmol/L | [facility] | | | PLASMA | | | DEPARTMENT | | | (LAB) | | | OF | | | | | | PATHOLOGY | | + +---------+ + + + | TOTAL CO2, | 26 | 23 - 29 mmol/L | [facility] | | | PLASMA | | | DEPARTMENT | | | (LAB) | | | OF | | | | | | PATHOLOGY | | + +---------+ + + + | CALCIUM, | 7.5 (L) | 8.5 - 10.5 | [facility] | | | PLASMA | | mg/dL | DEPARTMENT | | | (LAB) | | | OF | | | | | | PATHOLOGY | | + +---------+ + + + + + | Specimen | + + | | + + + + + + + | Performing | Address | City/State/Zipcode | Phone Number | | Organization | | | | + + + + + | [facility] DEPARTMENT OF | [address] | [place] [address] | | | PATHOLOGY | [address] | | | + + + + + | [facility] | [address] | [place] [address] | | | PATHOLOGY | [address] | | | + + + + + CHEST 1 VIEW (02/19/2006 10:58 AM PDT) + + + + + + | Component | Value | Ref Range | Performed | Pathologist | | | | | At | Signature | + + + + + + | CHEST, 1 | Radiologist 1: JEVON, | | | | | VIEW | GWENDOLYN Kerns, | | | | | | M.D.COMPARISON: Tammi | | | | | | er on the same day. | | | | | | FINDINGS: AP chest | | | | | | submitted. Support | | | | | | equipment is | | | | | | stable.Ground glass | | | | | | opacities are present | | | | | | within the right | | | | | | lung. Thereare | | | | | | multiple right sided rib | | | | | | fractures. No | | | | | | pneumothorax | | | | | | isidentified. Bibasil | | | | | | ar atelectasis is seen. | | | | | | IMPRESSION: No change in | | | | | | evolving right sided | | | | | | lung contusion, multiple | | | | | | rightsided rib | | | | | | fractures, and stable | | | | | | support | | | | | | equipment. Superimpos | | | | | | edpneumonia or | | | | | | aspiration in the right | | | | | | lung also or | | | | | | areconsiderations. | | | | + + + + + + + + | Specimen | + + | | + + + +---------+ + + | Performing | Address | City/State/Zipcode | Phone Number | | Organization | | | | + +---------+ + + | [facility] DEPARTMENT OF | | | | | RADIOLOGY | | | | + +---------+ + + CULTURE, SPUTUM (02/19/2006 10:30 AM PDT) + + + + + + | Component | Value | Ref Range | Performed | Pathologist | | | | | At | Signature | + + + + + + | SOURCE BODY | Bronchscopy Sample | | | | | SITE | Aspirate | | | | + + + + + + | CULTURE | Sputum Culture | | | | | RESULT | | | | | | | Source...............: | | | | | | Bronchscopy Sample | | | | | | Aspirate RLB Gram | | | | | | Stain...........: Few | | | | | | Epithelial | | | | | | cells | | | | | | | | | | | | Moderate | | | | | | PMN's | | | | | | | | | | | | Few Gram | | | | | | positive | | | | | | cocci | | | | | | | | | | | | Rare Gram | | | | | | negative | | | | | | bacillus | | | | | | Culture: 2+ | | | | | | Oral | | | | | | elicia | | | | | | | | | | | | | | | | | | Final | | | | | | ID Or | | | | | | al | | | | | | elicia | | | | | | | | | | | | | | | | | | Prelim ID | | | | | | Final ReportComment: | | | | | | Test performed at [facility] | | | | | | [facility] | | | | | | Laboratory. | | | | + + + + + + + + | Specimen | + + | | + + + + + + + | Performing | Address | City/State/Zipcode | Phone Number | | Organization | | | | + + + + + | [facility] | [address] | [place] [address] | | | LAB-MICRO | | | | + + + + + CULTURE, SPUTUM (02/19/2006 10:15 AM PDT) + + + + + + | Component | Value | Ref Range | Performed | Pathologist | | | | | At | Signature | + + + + + + | SOURCE BODY | Bronchscopy Sample from | | | | | SITE | brushing | | | | + + + + + + | CULTURE | Sputum Culture | | | | | RESULT | | | | | | | Source...............: | | | | | | Bronchscopy Sample from | | | | | | brushing RLB Gram | | | | | | Stain...........: Rare | | | | | | Epithelial | | | | | | cells | | | | | | | | | | | | No | | | | | | PMN's | | | | | | | | | | | | No | | | | | | organisms seen. | | | | | | Culture: Appr | | | | | | ox 50,000 col/ml | | | | | | Oral | | | | | | elicia | | | | | | | | | | | | Final | | | | | | ID | | | | | | | | | | | | Oral | | | | | | elicia | | | | | | | | | | | | Prelim ID Final | | | | | | ReportComment: Test | | | | | | performed at [facility] | | | | | | [facility] | | | | | | Laboratory. | | | | + + + + + + + + | Specimen | + + | | + + + + + + + | Performing | Address | City/State/Zipcode | Phone Number | | Organization | | | | + + + + + | [facility] | [address] | [place] [address] | | | LAB-MICRO | | | | + + + + + CULT, BLOOD JOSEI & BRIAN (02/19/2006 9:23 AM PDT) + + + + + + | Component | Value | Ref Range | Performed | Pathologist | | | | | At | Signature | + + + + + + | SOURCE BODY | Right Radial | | | | | SITE | | | | | + + + + + + | CULTURE | Blood Culture | | | | | RESULT | | | | | | | Source.................. | | | | | | : Right Radial | | | | | | Result.................. | | | | | | . Final: No growth at 5 | | | | | | days.Comment: Test | | | | | | performed at [facility] | | | | | | [facility] | | | | | | Laboratory. | | | | + + + + + + + + | Specimen | + + | | + + + + + + + | Performing | Address | City/State/Zipcode | Phone Number | | Organization | | | | + + + + + | [facility] | [address] | [place] [address] | | | LAB-MICRO | | | | + + + + + NELLA DUEÑAS (02/19/2006 9:23 AM PDT) + + + + + + | Component | Value | Ref Range | Performed | Pathologist | | | | | At | Signature | + + + + + + | SOURCE BODY | Right Antecubital | | | | | SITE | | | | | + + + + + + | CULTURE | Blood Culture | | | | | RESULT | | | | | | | Source.................. | | | | | | : Right Antecubital | | | | | | | | | | | | Result.................. | | | | | | . Final: No growth at 5 | | | | | | days.Comment: Test | | | | | | performed at [facility] | | | | | | [facility] | | | | | | Laboratory. | | | | + + + + + + + + | Specimen | + + | | + + + + + + + | Performing | Address | City/State/Zipcode | Phone Number | | Organization | | | | + + + + + | [facility] | [address] | [place] [address] | | | LAB-MICRO | | | | + + + + + CULT, URINE BACTI (02/19/2006 9:23 AM PDT) + + + + + + | Component | Value | Ref Range | Performed | Pathologist | | | | | At | Signature | + + + + + + | SOURCE BODY | Retention catheter | | | | | SITE | | | | | + + + + + + | CULTURE | Urine Culture | | | | | RESULT | | | | | | | Source...............: | | | | | | Retention catheter | | | | | | | | | | | | Culture: Final | | | | | | Report: No growth (< | | | | | | 1,000 col/ml) after | | | | | | 18-24 | | | | | | | | | | | | hours | | | | | | Final ReportComment: | | | | | | Test performed at | | | | | | [facility] [place] | | | | | | [facility]. | | | | + + + + + + + + | Specimen | + + | | + + + + + + + | Performing | Address | City/State/Zipcode | Phone Number | | Organization | | | | + + + + + | [facility] | [address] | [place] [address] | | | LAB-MICRO | | | | + + + + + PHOSPHORUS, PLASMA (02/19/2006 2:30 AM PDT) + +-------+ + + + | Component | Value | Ref Range | Performed | Pathologist | | | | | At | Signature | + +-------+ + + + | PHOSPHORUS, | 2.6 | 2.4 - 4.7 mg/dL | [facility] | | | PLASMA | | | DEPARTMENT | | | (LAB) | | | OF | | | | | | PATHOLOGY | | + +-------+ + + + + + | Specimen | + + | | + + + + + + + | Performing | Address | City/State/Zipcode | Phone Number | | Organization | | | | + + + + + | [facility]MENT [facility] | [address] | [place] [address] | | | PATHOLOGY | [address] | | | + + + + + | [facility] DEPARTMENT [facility] | [address] | [place] [address] | | | PATHOLOGY | [address] | | | + + + + + MAGNESIUM, PLASMA (02/19/2006 2:30 AM PDT) + +-------+ + + + | Component | Value | Ref Range | Performed | Pathologist | | | | | At | Signature | + +-------+ + + + | MAGNESIUM,P | 2.0 | 1.8 - 2.5 mg/dL | [facility] | | | LASMA | | | DEPARTMENT | | | | | | OF | | | | | | PATHOLOGY | | + +-------+ + + + + + | Specimen | + + | | + + + + + + + | Performing | Address | City/State/Zipcode | Phone Number | | Organization | | | | + + + + + | [facility] DE[facility]MENT [facility] | [address] | [place] [address] | | | PATHOLOGY | [address] | | | + + + + + | [facility] DEPARTMENT OF | [address] | [place] [address] | | | PATHOLOGY | [address] | | | + + + + + CBC ONLY WITH PLATELET (02/19/2006 2:30 AM PDT) + + + + + + | Component | Value | Ref Range | Performed | Pathologist | | | | | At | Signature | + + + + + + | WHITE CELL | 13.3 (H) | 4.4 - 11.0 K/cu | [facility] | | | COUNT | | mm | DEPARTMENT | | | | | | OF | | | | | | PATHOLOGY | | + + + + + + | RED CELL | 3.22 (L) | 4.50 - 5.90 | [facility] | | | COUNT | | M/cu mm | DEPARTMENT | | | | | | OF | | | | | | PATHOLOGY | | + + + + + + | HEMOGLOBIN | 10.5 (L) | 13.5 - 17.5 | [facility] | | | | | g/dL | DEPARTMENT | | | | | | OF | | | | | | PATHOLOGY | | + + + + + + | HEMATOCRIT | 30.0 (L) | 41.0 - 53.0 % | [facility] | | | | | | DEPARTMENT | | | | | | OF | | | | | | PATHOLOGY | | + + + + + + | MCV | 93.1 | 80.0 - 96.0 fL | [facility] | | | | | | DEPARTMENT | | | | | | OF | | | | | | PATHOLOGY | | + + + + + + | MCHC | 34.9 | 33.4 - 35.5 | [facility] | | | | | g/dL | DEPARTMENT | | | | | | OF | | | | | | PATHOLOGY | | + + + + + + | RDW | 14.0 | 11.5 - 15.0 % | [facility] | | | | | | DEPARTMENT | | | | | | OF | | | | | | PATHOLOGY | | + + + + + + | PLATELET | 463 (H) | 150 - 400 K/cu | [facility] | | | COUNT | | mm | DEPARTMENT | | | | | | OF | | | | | | PATHOLOGY | | + + + + + + + + | Specimen | + + | | + + + + + + + | Performing | Address | City/State/Zipcode | Phone Number | | Organization | | | | + + + + + | [facility] DE[facility]MENT [facility] | [address] | [place] [address] | | | PATHOLOGY | [address] | | | + + + + + | [facility] DEPARTMENT [facility] | [address] | [place] [address] | | | PATHOLOGY | [address] | | | + + + + + BASIC METABOLIC SET (02/19/2006 2:30 AM PDT) + +---------+ + + + | Component | Value | Ref Range | Performed | Pathologist | | | | | At | Signature | + +---------+ + + + | GLUCOSE, | 150 (H) | 65 - 110 mg/dL | [facility] | | | PLASMA | | | DEPARTMENT | | | (LAB) | | | OF | | | | | | PATHOLOGY | | + +---------+ + + + | BUN, PLASMA | 10 | 6 - 20 mg/dL | [facility] | | | (LAB) | | | DEPARTMENT | | | | | | OF | | | | | | PATHOLOGY | | + +---------+ + + + | CREATININE | 0.6 (L) | 0.7 - 1.3 mg/dL | [facility] | | | PLASMA | | | DEPARTMENT | | | (LAB) | | | OF | | | | | | PATHOLOGY | | + +---------+ + + + | SODIUM, | 139 | 136 - 145 | [facility] | | | PLASMA | | mmol/L | DEPARTMENT | | | (LAB) | | | OF | | | | | | PATHOLOGY | | + +---------+ + + + | POTASSIUM, | 3.8 | 3.5 - 5.1 | [facility] | | | PLASMA | | mmol/L | DEPARTMENT | | | (LAB) | | | OF | | | | | | PATHOLOGY | | + +---------+ + + + | CHLORIDE, | 102 | 98 - 107 mmol/L | [facility] | | | PLASMA | | | DEPARTMENT | | | (LAB) | | | OF | | | | | | PATHOLOGY | | + +---------+ + + + | TOTAL CO2, | 30 (H) | 23 - 29 mmol/L | [facility] | | | PLASMA | | | DEPARTMENT | | | (LAB) | | | OF | | | | | | PATHOLOGY | | + +---------+ + + + | CALCIUM, | 7.5 (L) | 8.5 - 10.5 | [facility] | | | PLASMA | | mg/dL | DEPARTMENT | | | (LAB) | | | OF | | | | | | PATHOLOGY | | + +---------+ + + + + + | Specimen | + + | | + + + + + + + | Performing | Address | City/State/Zipcode | Phone Number | | Organization | | | | + + + + + | [facility] DEPARTMENT OF | [address] | [place] [address] | | | PATHOLOGY | [address] | | | + + + + + | [facility] DEPARTMENT OF | [address] | [place] [address] | | | PATHOLOGY | [address] | | | + + + + + VANCOMYCIN, TROUGH (02/18/2006 9:00 PM PDT) + + + + + + | Component | Value | Ref Range | Performed | Pathologist | | | | | At | Signature | + + + + + + | VANCOMYCIN, | < 3.5 (L) | 5.0 - 15.0 | [facility] | | | TROUGH | | ug/mL | DEPARTMENT | | | | | | OF | | | | | | PATHOLOGY | | + + + + + + + + | Specimen | + + | | + + + + + + + | Performing | Address | City/State/Zipcode | Phone Number | | Organization | | | | + + + + + | [facility] DEPARTMENT OF | [address] | [place] [address] | | | PATHOLOGY | [address] | | | + + + + + | [facility] DEPARTMENT OF | [address] | [place] [address] | | | PATHOLOGY | [address] | | | + + + + + ABDOMEN 1 VIEW (02/18/2006 7:55 AM PDT) + + + + + + | Component | Value | Ref Range | Performed | Pathologist | | | | | At | Signature | + + + + + + | ABDOMEN, 1 | Radiologist 1: TITO, | | | | | VIEW (ÁNGEL) | CHENTE | | | | | | MMaria DABDOMEN: 02/19/20 | | | | | | 06 Dictated | | | | | | 02/18/2006 Single supine | | | | | | abdomen shows a lucency | | | | | | consistent with a PEG | | | | | | tubeprojected over | | | | | | region of | | | | | | stomach. Intestinal | | | | | | gas pattern | | | | | | appearsnormal, psoas | | | | | | shadows look | | | | | | normal. Otherwise, | | | | | | unremarkable. | | | | | | IMPRESSION: Status post | | | | | | PEG tube placement. | | | | | | END IMPRESSION: | | | | + + + + + + + + | Specimen | + + | | + + + +---------+ + + | Performing | Address | City/State/Zipcode | Phone Number | | Organization | | | | + +---------+ + + | [facility] DEPARTMENT OF | | | | | RADIOLOGY | | | | + +---------+ + + CHEST 1 VIEW (02/18/2006 7:55 AM PDT) + + + + + + | Component | Value | Ref Range | Performed | Pathologist | | | | | At | Signature | + + + + + + | CHEST, 1 | Radiologist 1: TITO, | | | | | VIEW | CHENTE | | | | | | NaborCHEST: 02/18/2006 | | | | | | Dictated 02/18/2006 | | | | | | FINDINGS: Frontal | | | | | | chest compared with one | | | | | | day ago shows no | | | | | | changesupport | | | | | | devices. Heart and | | | | | | mediastinum appear | | | | | | normal. There has | | | | | | beengeneralized interval | | | | | | clearing of the both | | | | | | lungs including | | | | | | therelatively focal | | | | | | presumably contused | | | | | | right midlung | | | | | | field. No | | | | | | newabnormality seen. | | | | | | IMPRESSION: Improved. | | | | | | END IMPRESSION: | | | | + + + + + + + + | Specimen | + + | | + + + +---------+ + + | Performing | Address | City/State/Zipcode | Phone Number | | Organization | | | | + +---------+ + + | [facility] DEPARTMENT OF | | | | | RADIOLOGY | | | | + +---------+ + + PHOSPHORUS, PLASMA (02/18/2006 3:47 AM PDT) + +-------+ + + + | Component | Value | Ref Range | Performed | Pathologist | | | | | At | Signature | + +-------+ + + + | PHOSPHORUS, | 3.0 | 2.4 - 4.7 mg/dL | [facility] | | | PLASMA | | | DEPARTMENT | | | (LAB) | | | OF | | | | | | PATHOLOGY | | + +-------+ + + + + + | Specimen | + + | | + + + + + + + | Performing | Address | City/State/Zipcode | Phone Number | | Organization | | | | + + + + + | [facility] | [address] | [place] [address] | | | PATHOLOGY | [address] | | | + + + + + | [facility] | [address] | [place] [address] | | | PATHOLOGY | [address] | | | + + + + + MAGNESIUM, PLASMA (02/18/2006 3:47 AM PDT) + +-------+ + + + | Component | Value | Ref Range | Performed | Pathologist | | | | | At | Signature | + +-------+ + + + | MAGNESIUM,P | 2.3 | 1.8 - 2.5 mg/dL | [facility] | | | LASMA | | | DEPARTMENT | | | | | | OF | | | | | | PATHOLOGY | | + +-------+ + + + + + | Specimen | + + | | + + + + + + + | Performing | Address | City/State/Zipcode | Phone Number | | Organization | | | | + + + + + | [facility] DEPARTMENT OF | [address] | [place] [address] | | | PATHOLOGY | [address] | | | + + + + + | [facility] DEPARTMENT OF | [address] | [place] [address] | | | PATHOLOGY | [address] | | | + + + + + CBC ONLY WITH PLATELET (02/18/2006 3:47 AM PDT) + + + + + + | Component | Value | Ref Range | Performed | Pathologist | | | | | At | Signature | + + + + + + | WHITE CELL | 15.4 (H) | 4.4 - 11.0 K/cu | [facility] | | | COUNT | | mm | DEPARTMENT | | | | | | OF | | | | | | PATHOLOGY | | + + + + + + | RED CELL | 3.92 (L) | 4.50 - 5.90 | [facility] | | | COUNT | | M/cu mm | DEPARTMENT | | | | | | OF | | | | | | PATHOLOGY | | + + + + + + | HEMOGLOBIN | 12.8 (L) | 13.5 - 17.5 | [facility] | | | | | g/dL | DEPARTMENT | | | | | | OF | | | | | | PATHOLOGY | | + + + + + + | HEMATOCRIT | 36.8 (L) | 41.0 - 53.0 % | [facility] | | | | | | DEPARTMENT | | | | | | OF | | | | | | PATHOLOGY | | + + + + + + | MCV | 93.8 | 80.0 - 96.0 fL | [facility] | | | | | | DEPARTMENT | | | | | | OF | | | | | | PATHOLOGY | | + + + + + + | MCHC | 34.7 | 33.4 - 35.5 | [facility] | | | | | g/dL | DEPARTMENT | | | | | | OF | | | | | | PATHOLOGY | | + + + + + + | RDW | 14.5 | 11.5 - 15.0 % | [facility] | | | | | | DEPARTMENT | | | | | | OF | | | | | | PATHOLOGY | | + + + + + + | PLATELET | 411 (H) | 150 - 400 K/cu | [facility] | | | COUNT | | mm | DEPARTMENT | | | | | | OF | | | | | | PATHOLOGY | | + + + + + + + + | Specimen | + + | | + + + + + + + | Performing | Address | City/State/Zipcode | Phone Number | | Organization | | | | + + + + + | [facility] DEPARTMENT OF | [address] | [place] [address] | | | PATHOLOGY | [address] | | | + + + + + | [facility] DEPARTMENT OF | [address] | [place] [address] | | | PATHOLOGY | [address] | | | + + + + + BASIC METABOLIC SET (02/18/2006 3:47 AM PDT) + +---------+ + + + | Component | Value | Ref Range | Performed | Pathologist | | | | | At | Signature | + +---------+ + + + | GLUCOSE, | 304 (H) | 65 - 110 mg/dL | [facility] | | | PLASMA | | | DEPARTMENT | | | (LAB) | | | OF | | | | | | PATHOLOGY | | + +---------+ + + + | BUN, PLASMA | 13 | 6 - 20 mg/dL | [facility] | | | (LAB) | | | DEPARTMENT | | | | | | OF | | | | | | PATHOLOGY | | + +---------+ + + + | CREATININE | 0.6 (L) | 0.7 - 1.3 mg/dL | [facility] | | | PLASMA | | | DEPARTMENT | | | (LAB) | | | OF | | | | | | PATHOLOGY | | + +---------+ + + + | SODIUM, | 139 | 136 - 145 | [facility] | | | PLASMA | | mmol/L | DEPARTMENT | | | (LAB) | | | OF | | | | | | PATHOLOGY | | + +---------+ + + + | POTASSIUM, | 4.9 | 3.5 - 5.1 | [facility] | | | PLASMA | | mmol/L | DEPARTMENT | | | (LAB) | | | OF | | | | | | PATHOLOGY | | + +---------+ + + + | CHLORIDE, | 104 | 98 - 107 mmol/L | [facility] | | | PLASMA | | | DEPARTMENT | | | (LAB) | | | OF | | | | | | PATHOLOGY | | + +---------+ + + + | TOTAL CO2, | 30 (H) | 23 - 29 mmol/L | [facility] | | | PLASMA | | | DEPARTMENT | | | (LAB) | | | OF | | | | | | PATHOLOGY | | + +---------+ + + + | CALCIUM, | 7.9 (L) | 8.5 - 10.5 | [facility] | | | PLASMA | | mg/dL | DEPARTMENT | | | (LAB) | | | OF | | | | | | PATHOLOGY | | + +---------+ + + + + + | Specimen | + + | | + + + + + + + | Performing | Address | City/State/Zipcode | Phone Number | | Organization | | | | + + + + + | [facility] | [address] | [place] [address] | | | PATHOLOGY | [address] | | | + + + + + | [facility] | [address] | [place] [address] | | | PATHOLOGY | [address] | | | + + + + + CULTURE, JADON GREGORY (02/17/2006 9:00 PM PDT) + + + + + + | Component | Value | Ref Range | Performed | Pathologist | | | | | At | Signature | + + + + + + | SOURCE BODY | Left Subclavian | | | | | SITE | | | | | + + + + + + | CULTURE | Catheter Tip | | | | | RESULT | Culture | | | | | | Source...............: | | | | | | Left Subclavian | | | | | | | | | | | | Culture: Prelimin | | | | | | balbir Report: No growth | | | | | | after 1 day. | | | | | | Culture examined | | | | | | daily. Report | | | | | | will be updated if | | | | | | growth | | | | | | occurs. Final | | | | | | Report: No growth after | | | | | | 3 days. Final | | | | | | ReportComment: Test | | | | | | performed at [facility] | | | | | | [facility] | | | | | | Laboratory. | | | | + + + + + + + + | Specimen | + + | | + + + + + + + | Performing | Address | City/State/Zipcode | Phone Number | | Organization | | | | + + + + + | [facility] | [address] | [place] [address] | | | LAB-MICRO | | | | + + + + + CHEST 1 VIEW (02/17/2006 5:10 AM PDT) + + + + + + | Component | Value | Ref Range | Performed | Pathologist | | | | | At | Signature | + + + + + + | CHEST, 1 | Radiologist 1: | | | | | VIEW | TRISTON BREAUX, | | | | | | M.Rodney-Radiologist 2: | | | | | | Norma FARAH: | | | | | | Frontal chest | | | | | | radiograph. Comparison: | | | | | | Yesterday. FINDINGS: | | | | | | Multiple right sided rib | | | | | | fractures are again | | | | | | noted. Scatteredgroun | | | | | | d glass opacities in the | | | | | | right mid and lower | | | | | | lung zones | | | | | | areunchanged. There | | | | | | is no pleural effusion | | | | | | or | | | | | | pneumothorax.Tracheostom | | | | | | y tube remains in | | | | | | place. The | | | | | | cardiomediastinalsilhoue | | | | | | tte is normal. | | | | | | IMPRESSION: 1. No | | | | | | change in the right mid | | | | | | and lower lung zone | | | | | | scatteredground glass | | | | | | opacities, most likely | | | | | | representing areas | | | | | | ofcontusion in a trauma | | | | | | patient. Otherwise | | | | | | clear lungs. | | | | + + + + + + + + | Specimen | + + | | + + + +---------+ + + | Performing | Address | City/State/Zipcode | Phone Number | | Organization | | | | + +---------+ + + | [facility] DEPARTMENT OF | | | | | RADIOLOGY | | | | + +---------+ + + BLOOD GASES, ARTERIAL (02/17/2006 2:20 AM PDT) + + + + + + | Component | Value | Ref Range | Performed | Pathologist | | | | | At | Signature | + + + + + + | PAT TEMP | 38.7 | Degree C | [facility] | | | ARTERIAL | | | DEPARTMENT | | | | | | OF | | | | | | PATHOLOGY | | + + + + + + | FIO2 | .40 | | [facility] | | | ARTERIAL | | | DEPARTMENT | | | | | | OF | | | | | | PATHOLOGY | | + + + + + + | PH ARTERIAL | 7.46 (H) | 7.37 - 7.44 | [facility] | | | | | | DEPARTMENT | | | | | | OF | | | | | | PATHOLOGY | | + + + + + + | PCO2 | 44 (H) | 32 - 43 mmHg | [facility] | | | ARTERIAL | | | DEPARTMENT | | | | | | OF | | | | | | PATHOLOGY | | + + + + + + | PO2 | 68 (L) | 72 - 104 mmHg | [facility] | | | ARTERIAL | | | DEPARTMENT | | | | | | OF | | | | | | PATHOLOGY | | + + + + + + | BASE EXCESS | 6.9 | | [facility] | | | ARTERIAL | | | DEPARTMENT | | | | | | OF | | | | | | PATHOLOGY | | + + + + + + | HCO3 | 31 (H) | 21 - 27 mmol/L | [facility] | | | ARTERIAL | | | DEPARTMENT | | | | | | OF | | | | | | PATHOLOGY | | + + + + + + | TOTAL CO2 | 32 (H) | 22 - 28 mmol/L | [facility] | | | ARTERIAL | | | DEPARTMENT | | | | | | OF | | | | | | PATHOLOGY | | + + + + + + | O2 SAT, | 95.4 | 92.0 - 98.0 % | [facility] | | | ARTERIAL | | | DEPARTMENT | | | | | | OF | | | | | | PATHOLOGY | | + + + + + + + + | Specimen | + + | | + + + + + | Narrative | Performed At | + + + | Arterial Blood Gas | [facility] | | | DEPARTMENT OF | | | PATHOLOGY | + + + + + + + + | Performing | Address | City/State/Zipcode | Phone Number | | Organization | | | | + + + + + | [facility] DEPARTMENT OF | [address] | [place] [address] | | | PATHOLOGY | [address] | | | + + + + + | [facility] DEPARTMENT OF | [address] | [place] [address] | | | PATHOLOGY | [address] | | | + + + + + PHOSPHORUS, PLASMA (02/17/2006 1:39 AM PDT) + +---------+ + + + | Component | Value | Ref Range | Performed | Pathologist | | | | | At | Signature | + +---------+ + + + | PHOSPHORUS, | 2.0 (L) | 2.4 - 4.7 mg/dL | [facility] | | | PLASMA | | | DEPARTMENT | | | (LAB) | | | OF | | | | | | PATHOLOGY | | + +---------+ + + + + + | Specimen | + + | | + + + + + + + | Performing | Address | City/State/Zipcode | Phone Number | | Organization | | | | + + + + + | [facility] DEPARTMENT OF | [address] | [place] [address] | | | PATHOLOGY | [address] | | | + + + + + | [facility] DEPARTMENT OF | [address] | [place] [address] | | | PATHOLOGY | [address] | | | + + + + + MAGNESIUM, PLASMA (02/17/2006 1:39 AM PDT) + +-------+ + + + | Component | Value | Ref Range | Performed | Pathologist | | | | | At | Signature | + +-------+ + + + | MAGNESIUM,P | 2.2 | 1.8 - 2.5 mg/dL | [facility] | | | LASMA | | | DEPARTMENT | | | | | | OF | | | | | | PATHOLOGY | | + +-------+ + + + + + | Specimen | + + | | + + + + + + + | Performing | Address | City/State/Zipcode | Phone Number | | Organization | | | | + + + + + | [facility] DEPARTMENT OF | [address] | [place] [address] | | | PATHOLOGY | [address] | | | + + + + + | [facility] | [address] | [place] [address] | | | PATHOLOGY | [address] | | | + + + + + CBC ONLY WITH PLATELET (02/17/2006 1:39 AM PDT) + + + + + + | Component | Value | Ref Range | Performed | Pathologist | | | | | At | Signature | + + + + + + | WHITE CELL | 14.5 (H) | 4.4 - 11.0 K/cu | [facility] | | | COUNT | | mm | DEPARTMENT | | | | | | OF | | | | | | PATHOLOGY | | + + + + + + | RED CELL | 3.29 (L) | 4.50 - 5.90 | [facility] | | | COUNT | | M/cu mm | DEPARTMENT | | | | | | OF | | | | | | PATHOLOGY | | + + + + + + | HEMOGLOBIN | 10.6 (L) | 13.5 - 17.5 | [facility] | | | | | g/dL | DEPARTMENT | | | | | | OF | | | | | | PATHOLOGY | | + + + + + + | HEMATOCRIT | 31.3 (L) | 41.0 - 53.0 % | [facility] | | | | | | DEPARTMENT | | | | | | OF | | | | | | PATHOLOGY | | + + + + + + | MCV | 95.0 | 80.0 - 96.0 fL | [facility] | | | | | | DEPARTMENT | | | | | | OF | | | | | | PATHOLOGY | | + + + + + + | MCHC | 33.8 | 33.4 - 35.5 | [facility] | | | | | g/dL | DEPARTMENT | | | | | | OF | | | | | | PATHOLOGY | | + + + + + + | RDW | 14.5 | 11.5 - 15.0 % | [facility] | | | | | | DEPARTMENT | | | | | | OF | | | | | | PATHOLOGY | | + + + + + + | PLATELET | 427 (H) | 150 - 400 K/cu | [facility] | | | COUNT | | mm | DEPARTMENT | | | | | | OF | | | | | | PATHOLOGY | | + + + + + + + + | Specimen | + + | | + + + + + + + | Performing | Address | City/State/Zipcode | Phone Number | | Organization | | | | + + + + + | [facility] | [address] | [place] [address] | | | PATHOLOGY | [address] | | | + + + + + | [facility] | [address] [place] [address] | [place] [address] | | | PATHOLOGY | [address] | | | + + + + + BASIC METABOLIC SET (02/17/2006 1:39 AM PDT) + +---------+ + + + | Component | Value | Ref Range | Performed | Pathologist | | | | | At | Signature | + +---------+ + + + | GLUCOSE, | 137 (H) | 65 - 110 mg/dL | [facility] | | | PLASMA | | | DEPARTMENT | | | (LAB) | | | OF | | | | | | PATHOLOGY | | + +---------+ + + + | BUN, PLASMA | 12 | 6 - 20 mg/dL | [facility] | | | (LAB) | | | DEPARTMENT | | | | | | OF | | | | | | PATHOLOGY | | + +---------+ + + + | CREATININE | 0.6 (L) | 0.7 - 1.3 mg/dL | [facility] | | | PLASMA | | | DEPARTMENT | | | (LAB) | | | OF | | | | | | PATHOLOGY | | + +---------+ + + + | SODIUM, | 138 | 136 - 145 | [facility] | | | PLASMA | | mmol/L | DEPARTMENT | | | (LAB) | | | OF | | | | | | PATHOLOGY | | + +---------+ + + + | POTASSIUM, | 3.4 (L) | 3.5 - 5.1 | [facility] | | | PLASMA | | mmol/L | DEPARTMENT | | | (LAB) | | | OF | | | | | | PATHOLOGY | | + +---------+ + + + | CHLORIDE, | 100 | 98 - 107 mmol/L | [facility] | | | PLASMA | | | DEPARTMENT | | | (LAB) | | | OF | | | | | | PATHOLOGY | | + +---------+ + + + | TOTAL CO2, | 37 (H) | 23 - 29 mmol/L | [facility] | | | PLASMA | | | DEPARTMENT | | | (LAB) | | | OF | | | | | | PATHOLOGY | | + +---------+ + + + | CALCIUM, | 7.7 (L) | 8.5 - 10.5 | [facility] | | | PLASMA | | mg/dL | DEPARTMENT | | | (LAB) | | | OF | | | | | | PATHOLOGY | | + +---------+ + + + + + | Specimen | + + | | + + + + + + + | Performing | Address | City/State/Zipcode | Phone Number | | Organization | | | | + + + + + | [facility] | [address] | [place] [address] | | | PATHOLOGY | [address] | | | + + + + + | [facility] DEPARTMENT OF | [address] | [place] [address] | | | PATHOLOGY | [address] | | | + + + + + CHEST 1 VIEW (02/16/2006 5:57 AM PDT) + + + + + + | Component | Value | Ref Range | Performed | Pathologist | | | | | At | Signature | + + + + + + | CHEST, 1 | Radiologist 1: | | | | | VIEW | TRISTON BREAUX, | | | | | | M.DRamiroSTUDY: A.P. chest. | | | | | | COMPARISON: 02/15/06. | | | | | | DISCUSSION: The | | | | | | tracheostomy tube is in | | | | | | unchanged position as is | | | | | | the leftsubclavian | | | | | | line. Residual small | | | | | | right pleural effusion | | | | | | and right mid and lower | | | | | | lungzone pulmonary | | | | | | contusion are | | | | | | noted. There are | | | | | | lower lung volumesthan | | | | | | on the prior study which | | | | | | may account for the | | | | | | apparentincreased | | | | | | opacity within the right | | | | | | mid and lower lung, | | | | | | either onthe may be | | | | | | superimposed aspiration | | | | | | within the right mid | | | | | | lung zone. Scattered | | | | | | atelectasis is seen | | | | | | within the left | | | | | | lung. There is | | | | | | nopneumothorax. Multi | | | | | | ple right sided rib | | | | | | fractures are present. | | | | | | IMPRESSION: 1. Small | | | | | | right pleural effusion. | | | | | | 2. Persistent right | | | | | | mid and lower lung zone | | | | | | pulmonary contusionwith | | | | | | apparent mild worsening | | | | | | which may be secondary | | | | | | to lower lungvolumes, | | | | | | however may also | | | | | | represent superimposed | | | | | | aspiration. | | | | + + + + + + + + | Specimen | + + | | + + + +---------+ + + | Performing | Address | City/State/Zipcode | Phone Number | | Organization | | | | + +---------+ + + | [facility] DEPARTMENT OF | | | | | RADIOLOGY | | | | + +---------+ + + MAGNESIUM, PLASMA (02/16/2006 2:40 AM PDT) + +-------+ + + + | Component | Value | Ref Range | Performed | Pathologist | | | | | At | Signature | + +-------+ + + + | MAGNESIUM,P | 2.3 | 1.8 - 2.5 mg/dL | [facility] | | | LASMA | | | DEPARTMENT | | | | | | OF | | | | | | PATHOLOGY | | + +-------+ + + + + + | Specimen | + + | | + + + + + + + | Performing | Address | City/State/Zipcode | Phone Number | | Organization | | | | + + + + + | [facility] DEPARTMENT OF | [address] | [place] [address] | | | PATHOLOGY | [address] | | | + + + + + | [facility] DEPARTMENT OF | [address] | [place] [address] | | | PATHOLOGY | [address] | | | + + + + + PHOSPHORUS, PLASMA (02/16/2006 2:40 AM PDT) + +-------+ + + + | Component | Value | Ref Range | Performed | Pathologist | | | | | At | Signature | + +-------+ + + + | PHOSPHORUS, | 2.6 | 2.4 - 4.7 mg/dL | [facility] | | | PLASMA | | | DEPARTMENT | | | (LAB) | | | OF | | | | | | PATHOLOGY | | + +-------+ + + + + + | Specimen | + + | | + + + + + + + | Performing | Address | City/State/Zipcode | Phone Number | | Organization | | | | + + + + + | [facility] | [address] | [place] [address] | | | PATHOLOGY | [address] | | | + + + + + | [facility] | [address] | [place] [address] | | | PATHOLOGY | [address] | | | + + + + + BASIC METABOLIC SET (02/16/2006 2:40 AM PDT) + +---------+ + + + | Component | Value | Ref Range | Performed | Pathologist | | | | | At | Signature | + +---------+ + + + | GLUCOSE, | 146 (H) | 65 - 110 mg/dL | [facility] | | | PLASMA | | | DEPARTMENT | | | (LAB) | | | OF | | | | | | PATHOLOGY | | + +---------+ + + + | BUN, PLASMA | 11 | 6 - 20 mg/dL | [facility] | | | (LAB) | | | DEPARTMENT | | | | | | OF | | | | | | PATHOLOGY | | + +---------+ + + + | CREATININE | 0.5 (L) | 0.7 - 1.3 mg/dL | [facility] | | | PLASMA | | | DEPARTMENT | | | (LAB) | | | OF | | | | | | PATHOLOGY | | + +---------+ + + + | SODIUM, | 137 | 136 - 145 | [facility] | | | PLASMA | | mmol/L | DEPARTMENT | | | (LAB) | | | OF | | | | | | PATHOLOGY | | + +---------+ + + + | POTASSIUM, | 3.6 | 3.5 - 5.1 | [facility] | | | PLASMA | | mmol/L | DEPARTMENT | | | (LAB) | | | OF | | | | | | PATHOLOGY | | + +---------+ + + + | CHLORIDE, | 100 | 98 - 107 mmol/L | [facility] | | | PLASMA | | | DEPARTMENT | | | (LAB) | | | OF | | | | | | PATHOLOGY | | + +---------+ + + + | TOTAL CO2, | 32 (H) | 23 - 29 mmol/L | [facility] | | | PLASMA | | | DEPARTMENT | | | (LAB) | | | OF | | | | | | PATHOLOGY | | + +---------+ + + + | CALCIUM, | 7.3 (L) | 8.5 - 10.5 | [facility] | | | PLASMA | | mg/dL | DEPARTMENT | | | (LAB) | | | OF | | | | | | PATHOLOGY | | + +---------+ + + + + + | Specimen | + + | | + + + + + + + | Performing | Address | City/State/Zipcode | Phone Number | | Organization | | | | + + + + + | [facility] | [address] | [place] [address] | | | PATHOLOGY | [address] | | | + + + + + | [facility] | [address] | [place] [address] | | | PATHOLOGY | [address] | | | + + + + + BLOOD GASES, ARTERIAL (02/16/2006 2:40 AM PDT) + +---------+ + + + | Component | Value | Ref Range | Performed | Pathologist | | | | | At | Signature | + +---------+ + + + | PAT TEMP | 38.0 | Degree C | [facility] | | | ARTERIAL | | | DEPARTMENT | | | | | | OF | | | | | | PATHOLOGY | | + +---------+ + + + | FIO2 | .40 | | [facility] | | | ARTERIAL | | | DEPARTMENT | | | | | | OF | | | | | | PATHOLOGY | | + +---------+ + + + | PH ARTERIAL | 7.39 | 7.37 - 7.44 | [facility] | | | | | | DEPARTMENT | | | | | | OF | | | | | | PATHOLOGY | | + +---------+ + + + | PCO2 | 54 (H) | 32 - 43 mmHg | [facility] | | | ARTERIAL | | | DEPARTMENT | | | | | | OF | | | | | | PATHOLOGY | | + +---------+ + + + | PO2 | 106 (H) | 72 - 104 mmHg | [facility] | | | ARTERIAL | | | DEPARTMENT | | | | | | OF | | | | | | PATHOLOGY | | + +---------+ + + + | BASE EXCESS | 5.8 | | [facility] | | | ARTERIAL | | | DEPARTMENT | | | | | | OF | | | | | | PATHOLOGY | | + +---------+ + + + | HCO3 | 31 (H) | 21 - 27 mmol/L | [facility] | | | ARTERIAL | | | DEPARTMENT | | | | | | OF | | | | | | PATHOLOGY | | + +---------+ + + + | TOTAL CO2 | 33 (H) | 22 - 28 mmol/L | [facility] | | | ARTERIAL | | | DEPARTMENT | | | | | | OF | | | | | | PATHOLOGY | | + +---------+ + + + | O2 SAT, | 98.0 | 92.0 - 98.0 % | [facility] | | | ARTERIAL | | | DEPARTMENT | | | | | | OF | | | | | | PATHOLOGY | | + +---------+ + + + + + | Specimen | + + | | + + + + + | Narrative | Performed At | + + + | Arterial Blood Gas | [facility] | | | DEPARTMENT OF | | | PATHOLOGY | + + + + + + + + | Performing | Address | City/State/Zipcode | Phone Number | | Organization | | | | + + + + + | [facility] DEPARTMENT OF | [address] | [place] [address] | | | PATHOLOGY | [address] | | | + + + + + | [facility] | [address] | [place] [address] | | | PATHOLOGY | [address] | | | + + + + + CBC ONLY WITH PLATELET (02/16/2006 2:40 AM PDT) + + + + + + | Component | Value | Ref Range | Performed | Pathologist | | | | | At | Signature | + + + + + + | WHITE CELL | 11.6 (H) | 4.4 - 11.0 K/cu | [facility] | | | COUNT | | mm | DEPARTMENT | | | | | | OF | | | | | | PATHOLOGY | | + + + + + + | RED CELL | 2.95 (L) | 4.50 - 5.90 | [facility] | | | COUNT | | M/cu mm | DEPARTMENT | | | | | | OF | | | | | | PATHOLOGY | | + + + + + + | HEMOGLOBIN | 9.6 (L) | 13.5 - 17.5 | [facility] | | | | | g/dL | DEPARTMENT | | | | | | OF | | | | | | PATHOLOGY | | + + + + + + | HEMATOCRIT | 28.2 (L) | 41.0 - 53.0 % | [facility] | | | | | | DEPARTMENT | | | | | | OF | | | | | | PATHOLOGY | | + + + + + + | MCV | 95.7 | 80.0 - 96.0 fL | [facility] | | | | | | DEPARTMENT | | | | | | OF | | | | | | PATHOLOGY | | + + + + + + | MCHC | 33.9 | 33.4 - 35.5 | [facility] | | | | | g/dL | DEPARTMENT | | | | | | OF | | | | | | PATHOLOGY | | + + + + + + | RDW | 14.3 | 11.5 - 15.0 % | [facility] | | | | | | DEPARTMENT | | | | | | OF | | | | | | PATHOLOGY | | + + + + + + | PLATELET | 289 | 150 - 400 K/cu | [facility] | | | COUNT | | mm | DEPARTMENT | | | | | | OF | | | | | | PATHOLOGY | | + + + + + + + + | Specimen | + + | | + + + + + + + | Performing | Address | City/State/Zipcode | Phone Number | | Organization | | | | + + + + + | [facility] DEPARTMENT OF | [facility] | [place] [address] | | | PATHOLOGY | [address] | | | + + + + + | [facility] DE[facility]MENT [facility] | [facility] | [place] [address] | | | PATHOLOGY | [address] | | | + + + + + CHEST 1 VIEW (02/15/2006 1:27 PM PDT) + + + + + + | Component | Value | Ref Range | Performed | Pathologist | | | | | At | Signature | + + + + + + | CHEST, 1 | Radiologist 1: PADILLA, | | | | | VIEW | VANESSA, MDPortable chest. | | | | | | Comparison earlier | | | | | | today. Small right | | | | | | pneumothorax appears to | | | | | | have resolved. There | | | | | | is asmall layering right | | | | | | pleural effusion | | | | | | following interval | | | | | | chesttube | | | | | | removal. Displaced | | | | | | right sided rib | | | | | | fractures are | | | | | | unchanged.Patchy right | | | | | | midlung consolidation / | | | | | | ground glass | | | | | | representingevolving | | | | | | contusion is unchanged. | | | | | | CONCLUSION: 1. Small | | | | | | right pleural effusion | | | | | | with apparent resolution | | | | | | of smallright | | | | | | pneumothorax following | | | | | | chest tube | | | | | | removal. Evolving | | | | | | patchyright lung | | | | | | contusion as before. | | | | + + + + + + + + | Specimen | + + | | + + + +---------+ + + | Performing | Address | City/State/Zipcode | Phone Number | | Organization | | | | + +---------+ + + | [facility] DEPARTMENT OF | | | | | RADIOLOGY | | | | + +---------+ + + CHEST 1 VIEW (02/15/2006 5:07 AM PDT) + + + + + + | Component | Value | Ref Range | Performed | Pathologist | | | | | At | Signature | + + + + + + | CHEST, 1 | Radiologist 1: HILARIO, | | | | | VIEW | JOSIE Sultana M.D.ONE-VIEW | | | | | | CHEST: 02/15/2006, | | | | | | 0510 HOURS Dictated | | | | | | 02/15/2006 | | | | | | FINDINGS: AP | | | | | | examination is compared | | | | | | with previous | | | | | | semierectexamination of | | | | | | 02/14/2006. The support | | | | | | devices are | | | | | | stable. Focal | | | | | | consolidation in the | | | | | | rightmidlung is | | | | | | persisting and is most | | | | | | consistent with lung | | | | | | contusion. Nodefinite | | | | | | pneumothorax is | | | | | | identified at this time. | | | | | | The right lower rib | | | | | | fractures are | | | | | | stable. No new chest | | | | | | abnormalitycan be | | | | | | identified. IMPRESSION: | | | | | | Central resolution of | | | | | | the minimal right | | | | | | pneumothorax in an | | | | | | otherwisestable | | | | | | radiographic appearance | | | | | | of the chest with strong | | | | | | suggestion ofright | | | | | | midlung contusion. END | | | | | | IMPRESSION: | | | | + + + + + + + + | Specimen | + + | | + + + +---------+ + + | Performing | Address | City/State/Zipcode | Phone Number | | Organization | | | | + +---------+ + + | [facility] DEPARTMENT OF | | | | | RADIOLOGY | | | | + +---------+ + + MAGNESIUM, PLASMA (02/15/2006 2:05 AM PDT) + +-------+ + + + | Component | Value | Ref Range | Performed | Pathologist | | | | | At | Signature | + +-------+ + + + | MAGNESIUM,P | 2.4 | 1.8 - 2.5 mg/dL | [facility] | | | LASMA | | | DEPARTMENT | | | | | | OF | | | | | | PATHOLOGY | | + +-------+ + + + + + | Specimen | + + | | + + + + + + + | Performing | Address | City/State/Zipcode | Phone Number | | Organization | | | | + + + + + | [facility] DEPARTMENT OF | [address] | [place] [address] | | | PATHOLOGY | [address] | | | + + + + + | [facility] DEPARTMENT OF | [facility] | [place] [address] | | | PATHOLOGY | [address] | | | + + + + + PHOSPHORUS, PLASMA (02/15/2006 2:05 AM PDT) + +-------+ + + + | Component | Value | Ref Range | Performed | Pathologist | | | | | At | Signature | + +-------+ + + + | PHOSPHORUS, | 2.9 | 2.4 - 4.7 mg/dL | [facility] | | | PLASMA | | | DEPARTMENT | | | (LAB) | | | OF | | | | | | PATHOLOGY | | + +-------+ + + + + + | Specimen | + + | | + + + + + + + | Performing | Address | City/State/Zipcode | Phone Number | | Organization | | | | + + + + + | [facility] DE[facility]MENT [facility] | [address] | [place] [address] | | | PATHOLOGY | [address] | | | + + + + + | [facility] DEPARTMENT OF | [address] | [place] [address] | | | PATHOLOGY | [address] | | | + + + + + BASIC METABOLIC SET (02/15/2006 2:05 AM PDT) + +---------+ + + + | Component | Value | Ref Range | Performed | Pathologist | | | | | At | Signature | + +---------+ + + + | GLUCOSE, | 125 (H) | 65 - 110 mg/dL | [facility] | | | PLASMA | | | DEPARTMENT | | | (LAB) | | | OF | | | | | | PATHOLOGY | | + +---------+ + + + | BUN, PLASMA | 15 | 6 - 20 mg/dL | [facility] | | | (LAB) | | | DEPARTMENT | | | | | | OF | | | | | | PATHOLOGY | | + +---------+ + + + | CREATININE | 0.7 | 0.7 - 1.3 mg/dL | [facility] | | | PLASMA | | | DEPARTMENT | | | (LAB) | | | OF | | | | | | PATHOLOGY | | + +---------+ + + + | SODIUM, | 138 | 136 - 145 | [facility] | | | PLASMA | | mmol/L | DEPARTMENT | | | (LAB) | | | OF | | | | | | PATHOLOGY | | + +---------+ + + + | POTASSIUM, | 3.7 | 3.5 - 5.1 | [facility] | | | PLASMA | | mmol/L | DEPARTMENT | | | (LAB) | | | OF | | | | | | PATHOLOGY | | + +---------+ + + + | CHLORIDE, | 99 | 98 - 107 mmol/L | [facility] | | | PLASMA | | | DEPARTMENT | | | (LAB) | | | OF | | | | | | PATHOLOGY | | + +---------+ + + + | TOTAL CO2, | 33 (H) | 23 - 29 mmol/L | [facility] | | | PLASMA | | | DEPARTMENT | | | (LAB) | | | OF | | | | | | PATHOLOGY | | + +---------+ + + + | CALCIUM, | 7.5 (L) | 8.5 - 10.5 | [facility] | | | PLASMA | | mg/dL | DEPARTMENT | | | (LAB) | | | OF | | | | | | PATHOLOGY | | + +---------+ + + + + + | Specimen | + + | | + + + + + + + | Performing | Address | City/State/Zipcode | Phone Number | | Organization | | | | + + + + + | [facility] | [address] | [place] [address] | | | PATHOLOGY | [address] | | | + + + + + | [facility] DEPARTMENT | [address] | [place] [address] | | | PATHOLOGY | [address] | | | + + + + + CBC ONLY WITH PLATELET (02/15/2006 2:05 AM PDT) + + + + + + | Component | Value | Ref Range | Performed | Pathologist | | | | | At | Signature | + + + + + + | WHITE CELL | 8.6 | 4.4 - 11.0 K/cu | [facility] | | | COUNT | | mm | DEPARTMENT | | | | | | OF | | | | | | PATHOLOGY | | + + + + + + | RED CELL | 3.17 (L) | 4.50 - 5.90 | [facility] | | | COUNT | | M/cu mm | DEPARTMENT | | | | | | OF | | | | | | PATHOLOGY | | + + + + + + | HEMOGLOBIN | 10.3 (L) | 13.5 - 17.5 | [facility] | | | | | g/dL | DEPARTMENT | | | | | | OF | | | | | | PATHOLOGY | | + + + + + + | HEMATOCRIT | 30.2 (L) | 41.0 - 53.0 % | [facility] | | | | | | DEPARTMENT | | | | | | OF | | | | | | PATHOLOGY | | + + + + + + | MCV | 95.3 | 80.0 - 96.0 fL | [facility] | | | | | | DEPARTMENT | | | | | | OF | | | | | | PATHOLOGY | | + + + + + + | MCHC | 34.2 | 33.4 - 35.5 | [facility] | | | | | g/dL | DEPARTMENT | | | | | | OF | | | | | | PATHOLOGY | | + + + + + + | RDW | 13.8 | 11.5 - 15.0 % | [facility] | | | | | | DEPARTMENT | | | | | | OF | | | | | | PATHOLOGY | | + + + + + + | PLATELET | 248 | 150 - 400 K/cu | [facility] | | | COUNT | | mm | DEPARTMENT | | | | | | OF | | | | | | PATHOLOGY | | + + + + + + + + | Specimen | + + | | + + + + + + + | Performing | Address | City/State/Zipcode | Phone Number | | Organization | | | | + + + + + | [facility] | [address] | [place] [address] | | | PATHOLOGY | [address] | | | + + + + + | [facility] | [facility] | [place] [address] | | | PATHOLOGY | [address] | | | + + + + + C. DIFFICILE TOXINS A+B (02/14/2006 8:30 AM PDT) + + + + + + | Component | Value | Ref Range | Performed | Pathologist | | | | | At | Signature | + + + + + + | C. | POSITIVEComment: | | | | | DIFFICILE | Reference | | | | | TOXIN | Range: Negative | | | | | | Test performed by [facility] | | | | | | [facility] | | | | | | [facility]. | | | | + + + + + + + + | Specimen | + + | | + + + + + + + | Performing | Address | City/State/Zipcode | Phone Number | | Organization | | | | + + + + + | [facility] | [address] | [place] [address] | | | LAB-MICRO | | | | + + + + + CULT, URINE BACTI (02/14/2006 8:00 AM PDT) + + + + + + | Component | Value | Ref Range | Performed | Pathologist | | | | | At | Signature | + + + + + + | SOURCE BODY | Retention catheter | | | | | SITE | | | | | + + + + + + | CULTURE | Urine Culture | | | | | RESULT | | | | | | | Source...............: | | | | | | Retention catheter | | | | | | | | | | | | Culture: > | | | | | | 100,000 col/ml | | | | | | Enterococcus | | | | | | species | | | | | | Final | | | | | | ID | | | | | | | | | | | | Enterococcus | | | | | | species | | | | | | Prelim ID | | | | | | | | | | | | | | | | | | PALMER Ampicillin | | | | | | | | | | | | S Nitrofurantoin | | | | | | | | | | | | S Vancomycin | | | | | | S Final | | | | | | ReportComment: Test | | | | | | performed at [facility] | | | | | | [facility] | | | | | | Laboratory. | | | | + + + + + + + + | Specimen | + + | | + + + + + + + | Performing | Address | City/State/Zipcode | Phone Number | | Organization | | | | + + + + + | [facility] | [address] | [place] [address] | | | LAB-MICRO | | | | + + + + + URINE, MICROSCOPIC EXAM (02/14/2006 8:00 AM PDT) + +-------+ + + + | Component | Value | Ref Range | Performed | Pathologist | | | | | At | Signature | + +-------+ + + + | SQUAMOUS | None | /hpf | [facility] | | | EPITHELIAL | | | DEPARTMENT | | | | | | OF | | | | | | PATHOLOGY | | + +-------+ + + + | NON-SQUAMOU | None | /hpf | [facility] | | | S EPITH | | | DEPARTMENT | | | | | | OF | | | | | | PATHOLOGY | | + +-------+ + + + | RED CELLS | 5-10 | 0 - 3 /hpf | [facility] | | | | | | DEPARTMENT | | | | | | OF | | | | | | PATHOLOGY | | + +-------+ + + + | WHITE CELLS | 0-1 | 0 - 5 /hpf | [facility] | | | | | | DEPARTMENT | | | | | | OF | | | | | | PATHOLOGY | | + +-------+ + + + | BACTERIA | Many | /hpf | [facility] | | | | | | DEPARTMENT | | | | | | OF | | | | | | PATHOLOGY | | + +-------+ + + + | MUCOUS | None | /lpf | [facility] | | | | | | DEPARTMENT | | | | | | OF | | | | | | PATHOLOGY | | + +-------+ + + + | HYALINE | None | 0 - 1 /lpf | [facility] | | | CASTS | | | DEPARTMENT | | | | | | OF | | | | | | PATHOLOGY | | + +-------+ + + + | GRANULAR | None | /lpf | [facility] | | | CASTS | | | DEPARTMENT | | | | | | OF | | | | | | PATHOLOGY | | + +-------+ + + + | CELLULAR | None | /lpf | [facility] | | | CASTS | | | DEPARTMENT | | | | | | OF | | | | | | PATHOLOGY | | + +-------+ + + + | AMORPHOUS | None | /hpf | [facility] | | | CRYSTALS | | | DEPARTMENT | | | | | | OF | | | | | | PATHOLOGY | | + +-------+ + + + | CALCIUM | None | /hpf | [facility] | | | OXALATE | | | DEPARTMENT | | | MADELAINE | | | OF | | | | | | PATHOLOGY | | + +-------+ + + + | URIC ACID | None | /hpf | [facility] | | | CRYSTALS | | | DEPARTMENT | | | | | | OF | | | | | | PATHOLOGY | | + +-------+ + + + | TRIPLE P04 | None | /hpf | [facility] | | | CRYSTALS | | | DEPARTMENT | | | | | | OF | | | | | | PATHOLOGY | | + +-------+ + + + | YEAST (LAB) | None | /hpf | [facility] | | | | | | DEPARTMENT | | | | | | OF | | | | | | PATHOLOGY | | + +-------+ + + + | TRICHOMONAS | None | /hpf | [facility] | | | | | | DEPARTMENT | | | | | | OF | | | | | | PATHOLOGY | | + +-------+ + + + + + | Specimen | + + | | + + + + + | Narrative | Performed At | + + + | Specimen volume <=1mL; microscopic performed on unspun sample. | [facility] | | | DEPARTMENT OF | | | PATHOLOGY | + + + + + + + + | Performing | Address | City/State/Zipcode | Phone Number | | Organization | | | | + + + + + | [facility] | [address] | [place] [address] | | | PATHOLOGY | [address] | | | + + + + + | [facility] | [address] [place] [address] | [place] [address] | | | PATHOLOGY | [address] | | | + + + + + NICKIE JOSE (02/14/2006 8:00 AM PDT) + + + + + + | Component | Value | Ref Range | Performed | Pathologist | | | | | At | Signature | + + + + + + | COLOR(UR) | Cammie | | [facility] | | | | | | DEPARTMENT | | | | | | OF | | | | | | PATHOLOGY | | + + + + + + | APPEARANCE | Clear | | [facility] | | | | | | DEPARTMENT | | | | | | OF | | | | | | PATHOLOGY | | + + + + + + | GLUCOSE(UR) | Negative | mg/dL | [facility] | | | | | | DEPARTMENT | | | | | | OF | | | | | | PATHOLOGY | | + + + + + + | BILIRUBIN | Negative | | [facility] | | | | | | DEPARTMENT | | | | | | OF | | | | | | PATHOLOGY | | + + + + + + | KETONES | Trace | mg/dL | [facility] | | | | | | DEPARTMENT | | | | | | OF | | | | | | PATHOLOGY | | + + + + + + | SPECIFIC | 1.025 | 1.005 - 1.030 | [facility] | | | GRAVITY | | | DEPARTMENT | | | | | | OF | | | | | | PATHOLOGY | | + + + + + + | BLOOD | Large | | [facility] | | | | | | DEPARTMENT | | | | | | OF | | | | | | PATHOLOGY | | + + + + + + | PH(UR) | 6.5 | 5.0 - 8.0 | [facility] | | | | | | DEPARTMENT | | | | | | OF | | | | | | PATHOLOGY | | + + + + + + | PROTEIN(LAB | >=300 | mg/dL | [facility] | | | ) | | | DEPARTMENT | | | | | | OF | | | | | | PATHOLOGY | | + + + + + + | UROBILINOGE | >=8.0 | 0 - 0.2 MARION | [facility] | | | N | | UNITS | DEPARTMENT | | | | | | OF | | | | | | PATHOLOGY | | + + + + + + | NITRITES | Negative | Negative | [facility] | | | | | | DEPARTMENT | | | | | | OF | | | | | | PATHOLOGY | | + + + + + + | LEUKOCYTE | Negative | Negative | [facility] | | | ESTERASE | | | DEPARTMENT | | | | | | OF | | | | | | PATHOLOGY | | + + + + + + + + | Specimen | + + | | + + + + + | Narrative | Performed At | + + + | Specimen volume <=1mL; microscopic performed on unspun sample. | [facility] | | | DEPARTMENT OF | | | PATHOLOGY | + + + + + + + + | Performing | Address | City/State/Zipcode | Phone Number | | Organization | | | | + + + + + | [facility] DEPARTMENT OF | [address] | [place] [address] | | | PATHOLOGY | [address] | | | + + + + + | [facility] | [address] | [place] [address] | | | PATHOLOGY | [address] | | | + + + + + CULTURE, SPUTUM (02/14/2006 7:45 AM PDT) + + + + + + | Component | Value | Ref Range | Performed | Pathologist | | | | | At | Signature | + + + + + + | SOURCE BODY | Endotracheal Aspirate | | | | | SITE | | | | | + + + + + + | CULTURE | Sputum Culture | | | | | RESULT | | | | | | | Source...............: | | | | | | Endotracheal Aspirate | | | | | | RLB Gram | | | | | | Stain...........: Many | | | | | | PMN's | | | | | | | | | | | | Few | | | | | | Epithelial | | | | | | cells | | | | | | | | | | | | Many Gram | | | | | | negative | | | | | | bacillus | | | | | | | | | | | | Many | | | | | | Gram positive | | | | | | cocci | | | | | | Culture: 4+ | | | | | | Hemophilus influenzae, | | | | | | beta lactamase | | | | | | negative Final ID | | | | | | 4+ Oral | | | | | | elicia | | | | | | | | | | | | | | | | | | Final | | | | | | ID Or | | | | | | al | | | | | | elicia | | | | | | | | | | | | | | | | | | Prelim ID | | | | | | Final ReportComment: | | | | | | Test performed at [facility] | | | | | | [facility] | | | | | | Laboratory. | | | | + + + + + + + + | Specimen | + + | | + + + + + + + | Performing | Address | City/State/Zipcode | Phone Number | | Organization | | | | + + + + + | [facility] | [address] | [place] [address] | | | LAB-MICRO | | | | + + + + + CULT, BLOOD COLT & BRIAN (02/14/2006 7:30 AM PDT) + + + + + + | Component | Value | Ref Range | Performed | Pathologist | | | | | At | Signature | + + + + + + | SOURCE BODY | Left Forearm | | | | | SITE | | | | | + + + + + + | CULTURE | Blood Culture | | | | | RESULT | | | | | | | Source................: | | | | | | Left Forearm | | | | | | Gram Stain: Gram | | | | | | positive cocci in | | | | | | clusters | | | | | | Coagulase | | | | | | negative Staph | | | | | | species | | | | | | | | | | | | Final | | | | | | ID Staphylococcus | | | | | | | | | | | | species | | | | | | | | | | | | | | | | | | Prelim ID Growth | | | | | | in Aerobic | | | | | | Bottle Growth in | | | | | | Anaerobic Bottle | | | | | | | | | | | | | | | | | | Staph | | | | | | neg Cefazolin | | | | | | S | | | | | | Clindamycin | | | | | | S Carlos | | | | | | thromycin | | | | | | | | | | | | S Oxacillin | | | | | | S | | | | | | Penicillin | | | | | | | | | | | | R Vancomycin | | | | | | S | | | | | | Final | | | | | | ReportComment: Test | | | | | | performed at [facility] | | | | | | [facility] | | | | | | Laboratory. | | | | + + + + + + + + | Specimen | + + | | + + + + + + + | Performing | Address | City/State/Zipcode | Phone Number | | Organization | | | | + + + + + | [facility] | [address] | [place] [address] | | | LAB-MICRO | | | | + + + + + CULT, BLOOD COLT & BRIAN (02/14/2006 7:30 AM PDT) + + + + + + | Component | Value | Ref Range | Performed | Pathologist | | | | | At | Signature | + + + + + + | SOURCE BODY | Right Forearm | | | | | SITE | | | | | + + + + + + | CULTURE | Blood Culture | | | | | RESULT | | | | | | | Source................: | | | | | | Right Forearm | | | | | | Gram Stain: Gram | | | | | | positive cocci in | | | | | | clusters | | | | | | Coagulase negative Staph | | | | | | | | | | | | species | | | | | | | | | | | | Final ID | | | | | | Staphylococcus | | | | | | species | | | | | | | | | | | | | | | | | | Prelim ID Growth | | | | | | in Aerobic | | | | | | Bottle Growth in | | | | | | Anaerobic Bottle | | | | | | | | | | | | | | | | | | Staph | | | | | | neg Cefazolin | | | | | | S | | | | | | Clindamycin | | | | | | S Carlos | | | | | | thromycin | | | | | | | | | | | | S Oxacillin | | | | | | S | | | | | | Penicillin | | | | | | | | | | | | R Vancomycin | | | | | | S | | | | | | Final | | | | | | ReportComment: Test | | | | | | performed at [facility] | | | | | | [facility] | | | | | | Laboratory. | | | | + + + + + + + + | Specimen | + + | | + + + + + + + | Performing | Address | City/State/Zipcode | Phone Number | | Organization | | | | + + + + + | [facility] | [address] | [place] [address] | | | LAB-MICRO | | | | + + + + + CHEST 1 VIEW (02/14/2006 5:41 AM PDT) + + + + + + | Component | Value | Ref Range | Performed | Pathologist | | | | | At | Signature | + + + + + + | CHEST, 1 | Radiologist 1: JEVON, | | | | | VIEW | GWENDOLYN A., | | | | | | M.D.COMPARISON: [facility] | | | | | | rday. FINDINGS: AP | | | | | | chest | | | | | | submitted. Enteric | | | | | | tube has been | | | | | | removed.Other support | | | | | | equipment is | | | | | | stable. There is | | | | | | probably a tiny | | | | | | rightapical | | | | | | pneumothorax. Right | | | | | | midlung area | | | | | | consolidation is | | | | | | slightlyimproved. Car | | | | | | diac silhouette is | | | | | | unchanged. Overlyings | | | | | | tabilization equipment | | | | | | is noted. Right sided | | | | | | rib fractures areagain | | | | | | seen. IMPRESSION: | | | | | | 1. Right midlung area | | | | | | consolidation has | | | | | | slightly | | | | | | improvedcompared to | | | | | | prior | | | | | | study. Consistent | | | | | | with lung contusion. | | | | | | 2. Probable tiny | | | | | | right sided | | | | | | pneumothorax. Unchang | | | | | | ed from priorstudy. | | | | + + + + + + + + | Specimen | + + | | + + + +---------+ + + | Performing | Address | City/State/Zipcode | Phone Number | | Organization | | | | + +---------+ + + | [facility] DEPARTMENT OF | | | | | RADIOLOGY | | | | + +---------+ + + BLOOD GASES, ARTERIAL (02/14/2006 4:00 AM PDT) + +--------+ + + + | Component | Value | Ref Range | Performed | Pathologist | | | | | At | Signature | + +--------+ + + + | PAT TEMP | NG | Degree C | [facility] | | | ARTERIAL | | | DEPARTMENT | | | | | | OF | | | | | | PATHOLOGY | | + +--------+ + + + | FIO2 | .40 | | [facility] | | | ARTERIAL | | | DEPARTMENT | | | | | | OF | | | | | | PATHOLOGY | | + +--------+ + + + | PH ARTERIAL | 7.44 | 7.37 - 7.44 | [facility] | | | | | | DEPARTMENT | | | | | | OF | | | | | | PATHOLOGY | | + +--------+ + + + | PCO2 | 44 (H) | 32 - 43 mmHg | [facility] | | | ARTERIAL | | | DEPARTMENT | | | | | | OF | | | | | | PATHOLOGY | | + +--------+ + + + | PO2 | 79 | 72 - 104 mmHg | [facility] | | | ARTERIAL | | | DEPARTMENT | | | | | | OF | | | | | | PATHOLOGY | | + +--------+ + + + | BASE EXCESS | 4.9 | | [facility] | | | ARTERIAL | | | DEPARTMENT | | | | | | OF | | | | | | PATHOLOGY | | + +--------+ + + + | HCO3 | 29 (H) | 21 - 27 mmol/L | [facility] | | | ARTERIAL | | | DEPARTMENT | | | | | | OF | | | | | | PATHOLOGY | | + +--------+ + + + | TOTAL CO2 | 31 (H) | 22 - 28 mmol/L | [facility] | | | ARTERIAL | | | DEPARTMENT | | | | | | OF | | | | | | PATHOLOGY | | + +--------+ + + + | O2 SAT, | 96.9 | 92.0 - 98.0 % | [facility] | | | ARTERIAL | | | DEPARTMENT | | | | | | OF | | | | | | PATHOLOGY | | + +--------+ + + + + + | Specimen | + + | | + + + + + | Narrative | Performed At | + + + | Arterial Blood Gas | [facility] | | | DEPARTMENT OF | | | PATHOLOGY | + + + + + + + + | Performing | Address | City/State/Zipcode | Phone Number | | Organization | | | | + + + + + | [facility]MENT [facility] | [address] | [place] [address] | | | PATHOLOGY | [address] | | | + + + + + | [facility] | [address] | [place] [address] | | | PATHOLOGY | [address] | | | + + + + + PHOSPHORUS, PLASMA (02/14/2006 2:05 AM PDT) + +-------+ + + + | Component | Value | Ref Range | Performed | Pathologist | | | | | At | Signature | + +-------+ + + + | PHOSPHORUS, | 3.1 | 2.4 - 4.7 mg/dL | [facility] | | | PLASMA | | | DEPARTMENT | | | (LAB) | | | OF | | | | | | PATHOLOGY | | + +-------+ + + + + + | Specimen | + + | | + + + + + + + | Performing | Address | City/State/Zipcode | Phone Number | | Organization | | | | + + + + + | [facility] | [address] | [place] [address] | | | PATHOLOGY | [address] | | | + + + + + | [facility] | [address] | [place] [address] | | | PATHOLOGY | [address] | | | + + + + + MAGNESIUM, PLASMA (02/14/2006 2:05 AM PDT) + +-------+ + + + | Component | Value | Ref Range | Performed | Pathologist | | | | | At | Signature | + +-------+ + + + | MAGNESIUM,P | 2.2 | 1.8 - 2.5 mg/dL | [facility] | | | LASMA | | | DEPARTMENT | | | | | | OF | | | | | | PATHOLOGY | | + +-------+ + + + + + | Specimen | + + | | + + + + + + + | Performing | Address | City/State/Zipcode | Phone Number | | Organization | | | | + + + + + | [facility] DEPARTMENT OF | [address] | [place] [address] | | | PATHOLOGY | [address] | | | + + + + + | [facility] [facility] | [address] | [place] [address] | | | PATHOLOGY | [address] | | | + + + + + CBC ONLY WITH PLATELET (02/14/2006 2:05 AM PDT) + + + + + + | Component | Value | Ref Range | Performed | Pathologist | | | | | At | Signature | + + + + + + | WHITE CELL | 6.3 | 4.4 - 11.0 K/cu | [facility] | | | COUNT | | mm | DEPARTMENT | | | | | | OF | | | | | | PATHOLOGY | | + + + + + + | RED CELL | 3.03 (L) | 4.50 - 5.90 | [facility] | | | COUNT | | M/cu mm | DEPARTMENT | | | | | | OF | | | | | | PATHOLOGY | | + + + + + + | HEMOGLOBIN | 10.2 (L) | 13.5 - 17.5 | [facility] | | | | | g/dL | DEPARTMENT | | | | | | OF | | | | | | PATHOLOGY | | + + + + + + | HEMATOCRIT | 28.9 (L) | 41.0 - 53.0 % | [facility] | | | | | | DEPARTMENT | | | | | | OF | | | | | | PATHOLOGY | | + + + + + + | MCV | 95.3 | 80.0 - 96.0 fL | [facility] | | | | | | DEPARTMENT | | | | | | OF | | | | | | PATHOLOGY | | + + + + + + | MCHC | 35.3 | 33.4 - 35.5 | [facility] | | | | | g/dL | DEPARTMENT | | | | | | OF | | | | | | PATHOLOGY | | + + + + + + | RDW | 13.2 | 11.5 - 15.0 % | [facility] | | | | | | DEPARTMENT | | | | | | OF | | | | | | PATHOLOGY | | + + + + + + | PLATELET | 214 | 150 - 400 K/cu | [facility] | | | COUNT | | mm | DEPARTMENT | | | | | | OF | | | | | | PATHOLOGY | | + + + + + + + + | Specimen | + + | | + + + + + + + | Performing | Address | City/State/Zipcode | Phone Number | | Organization | | | | + + + + + | [facility] DEPARTMENT OF | [address] | [place], [place] [address] | | | PATHOLOGY | [address] | | | + + + + + | [facility] DEPARTMENT OF | [address] | [place] [address] | | | PATHOLOGY | [address] | | | + + + + + BASIC METABOLIC SET (02/14/2006 2:05 AM PDT) + +---------+ + + + | Component | Value | Ref Range | Performed | Pathologist | | | | | At | Signature | + +---------+ + + + | GLUCOSE, | 97 | 65 - 110 mg/dL | [facility] | | | PLASMA | | | DEPARTMENT | | | (LAB) | | | OF | | | | | | PATHOLOGY | | + +---------+ + + + | BUN, PLASMA | 11 | 6 - 20 mg/dL | [facility] | | | (LAB) | | | DEPARTMENT | | | | | | OF | | | | | | PATHOLOGY | | + +---------+ + + + | CREATININE | 0.6 (L) | 0.7 - 1.3 mg/dL | [facility] | | | PLASMA | | | DEPARTMENT | | | (LAB) | | | OF | | | | | | PATHOLOGY | | + +---------+ + + + | SODIUM, | 140 | 136 - 145 | [facility] | | | PLASMA | | mmol/L | DEPARTMENT | | | (LAB) | | | OF | | | | | | PATHOLOGY | | + +---------+ + + + | POTASSIUM, | 3.7 | 3.5 - 5.1 | [facility] | | | PLASMA | | mmol/L | DEPARTMENT | | | (LAB) | | | OF | | | | | | PATHOLOGY | | + +---------+ + + + | CHLORIDE, | 99 | 98 - 107 mmol/L | [facility] | | | PLASMA | | | DEPARTMENT | | | (LAB) | | | OF | | | | | | PATHOLOGY | | + +---------+ + + + | TOTAL CO2, | 29 | 23 - 29 mmol/L | [facility] | | | PLASMA | | | DEPARTMENT | | | (LAB) | | | OF | | | | | | PATHOLOGY | | + +---------+ + + + | CALCIUM, | 7.9 (L) | 8.5 - 10.5 | [facility] | | | PLASMA | | mg/dL | DEPARTMENT | | | (LAB) | | | OF | | | | | | PATHOLOGY | | + +---------+ + + + + + | Specimen | + + | | + + + + + + + | Performing | Address | City/State/Zipcode | Phone Number | | Organization | | | | + + + + + | [facility] DEPARTMENT OF | [address] | [place] [address] | | | PATHOLOGY | [address] | | | + + + + + | [facility] DEPARTMENT OF | [address] | [place] [address] | | | PATHOLOGY | [address] | | | + + + + + POTASSIUM, PLASMA (02/13/2006 7:55 PM PDT) + +-------+ + + + | Component | Value | Ref Range | Performed | Pathologist | | | | | At | Signature | + +-------+ + + + | POTASSIUM, | 4.0 | 3.5 - 5.1 | [facility] | | | PLASMA | | mmol/L | DEPARTMENT | | | (LAB) | | | OF | | | | | | PATHOLOGY | | + +-------+ + + + + + | Specimen | + + | | + + + + + + + | Performing | Address | City/State/Zipcode | Phone Number | | Organization | | | | + + + + + | [facility] DEPARTMENT OF | [address] | [place] [address] | | | PATHOLOGY | [address] | | | + + + + + | [facility] DEPARTMENT OF | [facility] | [place] [address] | | | PATHOLOGY | [address] | | | + + + + + BASIC METABOLIC SET (02/13/2006 5:33 AM PDT) + +---------+ + + + | Component | Value | Ref Range | Performed | Pathologist | | | | | At | Signature | + +---------+ + + + | GLUCOSE, | 149 (H) | 65 - 110 mg/dL | [facility] | | | PLASMA | | | DEPARTMENT | | | (LAB) | | | OF | | | | | | PATHOLOGY | | + +---------+ + + + | BUN, PLASMA | 9 | 6 - 20 mg/dL | [facility] | | | (LAB) | | | DEPARTMENT | | | | | | OF | | | | | | PATHOLOGY | | + +---------+ + + + | CREATININE | 0.6 (L) | 0.7 - 1.3 mg/dL | [facility] | | | PLASMA | | | DEPARTMENT | | | (LAB) | | | OF | | | | | | PATHOLOGY | | + +---------+ + + + | SODIUM, | 139 | 136 - 145 | [facility] | | | PLASMA | | mmol/L | DEPARTMENT | | | (LAB) | | | OF | | | | | | PATHOLOGY | | + +---------+ + + + | POTASSIUM, | 3.3 (L) | 3.5 - 5.1 | [facility] | | | PLASMA | | mmol/L | DEPARTMENT | | | (LAB) | | | OF | | | | | | PATHOLOGY | | + +---------+ + + + | CHLORIDE, | 102 | 98 - 107 mmol/L | [facility] | | | PLASMA | | | DEPARTMENT | | | (LAB) | | | OF | | | | | | PATHOLOGY | | + +---------+ + + + | TOTAL CO2, | 28 | 23 - 29 mmol/L | [facility] | | | PLASMA | | | DEPARTMENT | | | (LAB) | | | OF | | | | | | PATHOLOGY | | + +---------+ + + + | CALCIUM, | 8.1 (L) | 8.5 - 10.5 | [facility] | | | PLASMA | | mg/dL | DEPARTMENT | | | (LAB) | | | OF | | | | | | PATHOLOGY | | + +---------+ + + + + + | Specimen | + + | | + + + + + + + | Performing | Address | City/State/Zipcode | Phone Number | | Organization | | | | + + + + + | [facility] | [facility] | [place] [address] | | | PATHOLOGY | [address] | | | + + + + + | [facility] DEPARTMENT OF | [facility] | [place] [address] | | | PATHOLOGY | [address] | | | + + + + + MAGNESIUM, PLASMA (02/13/2006 5:33 AM PDT) + +-------+ + + + | Component | Value | Ref Range | Performed | Pathologist | | | | | At | Signature | + +-------+ + + + | MAGNESIUM,P | 2.1 | 1.8 - 2.5 mg/dL | [facility] | | | LASMA | | | DEPARTMENT | | | | | | OF | | | | | | PATHOLOGY | | + +-------+ + + + + + | Specimen | + + | | + + + + + + + | Performing | Address | City/State/Zipcode | Phone Number | | Organization | | | | + + + + + | [facility] DEPARTMENT OF | [address] | [place] [address] | | | PATHOLOGY | [address] | | | + + + + + | [facility] OF | [address] | [place] [address] | | | PATHOLOGY | [address] | | | + + + + + CBC ONLY WITH PLATELET (02/13/2006 5:33 AM PDT) + + + + + + | Component | Value | Ref Range | Performed | Pathologist | | | | | At | Signature | + + + + + + | WHITE CELL | 5.7 | 4.4 - 11.0 K/cu | [facility] | | | COUNT | | mm | DEPARTMENT | | | | | | OF | | | | | | PATHOLOGY | | + + + + + + | RED CELL | 3.59 (L) | 4.50 - 5.90 | [facility] | | | COUNT | | M/cu mm | DEPARTMENT | | | | | | OF | | | | | | PATHOLOGY | | + + + + + + | HEMOGLOBIN | 11.8 (L) | 13.5 - 17.5 | [facility] | | | | | g/dL | DEPARTMENT | | | | | | OF | | | | | | PATHOLOGY | | + + + + + + | HEMATOCRIT | 33.9 (L) | 41.0 - 53.0 % | [facility] | | | | | | DEPARTMENT | | | | | | OF | | | | | | PATHOLOGY | | + + + + + + | MCV | 94.4 | 80.0 - 96.0 fL | [facility] | | | | | | DEPARTMENT | | | | | | OF | | | | | | PATHOLOGY | | + + + + + + | MCHC | 34.8 | 33.4 - 35.5 | [facility] | | | | | g/dL | DEPARTMENT | | | | | | OF | | | | | | PATHOLOGY | | + + + + + + | RDW | 13.3 | 11.5 - 15.0 % | [facility] | | | | | | DEPARTMENT | | | | | | OF | | | | | | PATHOLOGY | | + + + + + + | PLATELET | 214 | 150 - 400 K/cu | [facility] | | | COUNT | | mm | DEPARTMENT | | | | | | OF | | | | | | PATHOLOGY | | + + + + + + + + | Specimen | + + | | + + + + + + + | Performing | Address | City/State/Zipcode | Phone Number | | Organization | | | | + + + + + | [facility] | [address] | [place] [address] | | | PATHOLOGY | [address] | | | + + + + + | [facility] | [address] | [place] [address] | | | PATHOLOGY | [address] | | | + + + + + MAGNESIUM, PLASMA (02/13/2006 2:45 AM PDT) + +---------+ + + + | Component | Value | Ref Range | Performed | Pathologist | | | | | At | Signature | + +---------+ + + + | MAGNESIUM,P | 1.5 (L) | 1.8 - 2.5 mg/dL | [facility] | | | LASMA | | | DEPARTMENT | | | | | | OF | | | | | | PATHOLOGY | | + +---------+ + + + + + | Specimen | + + | | + + + + + | Narrative | Performed At | + + + | Checked and phoned. CALC Not Readback. | [facility] | | | DEPARTMENT OF | | | PATHOLOGY | + + + + + + + + | Performing | Address | City/State/Zipcode | Phone Number | | Organization | | | | + + + + + | [facility] | [address] | [place] [address] | | | PATHOLOGY | [address] | | | + + + + + | [facility] | [address] | [place] [address] | | | PATHOLOGY | [address] | | | + + + + + PHOSPHORUS, PLASMA (02/13/2006 2:45 AM PDT) + +---------+ + + + | Component | Value | Ref Range | Performed | Pathologist | | | | | At | Signature | + +---------+ + + + | PHOSPHORUS, | 1.7 (L) | 2.4 - 4.7 mg/dL | [facility] | | | PLASMA | | | DEPARTMENT | | | (LAB) | | | OF | | | | | | PATHOLOGY | | + +---------+ + + + + + | Specimen | + + | | + + + + + | Narrative | Performed At | + + + | Checked and phoned. CALC Not Readback. | [facility] | | | DEPARTMENT OF | | | PATHOLOGY | + + + + + + + + | Performing | Address | City/State/Zipcode | Phone Number | | Organization | | | | + + + + + | [facility] | [address] | [place] [address] | | | PATHOLOGY | [address] | | | + + + + + | [facility] | [address] | [place] [address] | | | PATHOLOGY | [address] | | | + + + + + COMP METABOLIC SET (02/13/2006 2:45 AM PDT) + +---------+ + + + | Component | Value | Ref Range | Performed | Pathologist | | | | | At | Signature | + +---------+ + + + | GLUCOSE, | 118 (H) | 65 - 110 mg/dL | [facility] | | | PLASMA | | | DEPARTMENT | | | (LAB) | | | OF | | | | | | PATHOLOGY | | + +---------+ + + + | BUN, PLASMA | 6 | 6 - 20 mg/dL | [facility] | | | (LAB) | | | DEPARTMENT | | | | | | OF | | | | | | PATHOLOGY | | + +---------+ + + + | CREATININE | 0.5 (L) | 0.7 - 1.3 mg/dL | [facility] | | | PLASMA | | | DEPARTMENT | | | (LAB) | | | OF | | | | | | PATHOLOGY | | + +---------+ + + + | TOTAL | 4.1 (L) | 6.1 - 7.9 g/dL | [facility] | | | PROTEIN, | | | DEPARTMENT | | | PLASMA | | | OF | | | (LAB) | | | PATHOLOGY | | + +---------+ + + + | ALBUMIN, | 1.6 (L) | 3.5 - 4.7 g/dL | [facility] | | | PLASMA | | | DEPARTMENT | | | (LAB) | | | OF | | | | | | PATHOLOGY | | + +---------+ + + + | CALCIUM, | 6.2 (*) | 8.5 - 10.5 | [facility] | | | PLASMA | | mg/dL | DEPARTMENT | | | (LAB) | | | OF | | | | | | PATHOLOGY | | + +---------+ + + + | BILIRUBIN | 1.0 | 0.3 - 1.2 mg/dL | [facility] | | | TOTAL | | | DEPARTMENT | | | | | | OF | | | | | | PATHOLOGY | | + +---------+ + + + | ALK PHOS | 46 (L) | 53 - 128 U/L | [facility] | | | | | | DEPARTMENT | | | | | | OF | | | | | | PATHOLOGY | | + +---------+ + + + | AST(SGOT) | 32 | 15 - 41 U/L | [facility] | | | | | | DEPARTMENT | | | | | | OF | | | | | | PATHOLOGY | | + +---------+ + + + | SODIUM, | 140 | 136 - 145 | [facility] | | | PLASMA | | mmol/L | DEPARTMENT | | | (LAB) | | | OF | | | | | | PATHOLOGY | | + +---------+ + + + | POTASSIUM, | 2.6 (L) | 3.5 - 5.1 | [facility] | | | PLASMA | | mmol/L | DEPARTMENT | | | (LAB) | | | OF | | | | | | PATHOLOGY | | + +---------+ + + + | CHLORIDE, | 109 (H) | 98 - 107 mmol/L | [facility] | | | PLASMA | | | DEPARTMENT | | | (LAB) | | | OF | | | | | | PATHOLOGY | | + +---------+ + + + | TOTAL CO2, | 23 | 23 - 29 mmol/L | [facility] | | | PLASMA | | | DEPARTMENT | | | (LAB) | | | OF | | | | | | PATHOLOGY | | + +---------+ + + + | ALT (SGPT) | 33 | 13 - 48 U/L | [facility] | | | | | | DEPARTMENT | | | | | | OF | | | | | | PATHOLOGY | | + +---------+ + + + + + | Specimen | + + | | + + + + + | Narrative | Performed At | + + + | Checked and phoned. CALC Not Readback. | [facility] | | | DEPARTMENT OF | | | PATHOLOGY | + + + + + + + + | Performing | Address | City/State/Zipcode | Phone Number | | Organization | | | | + + + + + | [facility] | [address] | [place] [address] | | | PATHOLOGY | [address] | | | + + + + + | [facility] | [address] | [place] [address] | | | PATHOLOGY | [address] | | | + + + + + PROTHROMBIN TIME (02/13/2006 2:45 AM PDT) + + + + + + | Component | Value | Ref Range | Performed | Pathologist | | | | | At | Signature | + + + + + + | INR | 1.07Comment: | 0.90 - 1.20 INR | [facility] | | | | PT INR | | DEPARTMENT | | | | Therapeutic ranges for | | OF | | | | full | | PATHOLOGY | | | | anticoagulation: | | | | | | INR for | | | | | | Venous | | | | | | Thromboembolism | | | | | | | | | | | | (2.0-3.0)INR | | | | | | INR for most | | | | | | patients with mech. | | | | | | valves (2.5-3.5)I | | | | | | NR | | | | + + + + + + + + | Specimen | + + | | + + + + + + + | Performing | Address | City/State/Zipcode | Phone Number | | Organization | | | | + + + + + | [facility] DE[facility]MENT [facility] | [address] | [place] [address] | | | PATHOLOGY | [address] | | | + + + + + | [facility] DEPARTMENT OF | [address] | [place] [address] | | | PATHOLOGY | [address] | | | + + + + + CBC ONLY WITH PLATELET (02/13/2006 2:45 AM PDT) + + + + + + | Component | Value | Ref Range | Performed | Pathologist | | | | | At | Signature | + + + + + + | WHITE CELL | 4.0 (L) | 4.4 - 11.0 K/cu | [facility] | | | COUNT | | mm | DEPARTMENT | | | | | | OF | | | | | | PATHOLOGY | | + + + + + + | RED CELL | 2.60 (L) | 4.50 - 5.90 | [facility] | | | COUNT | | M/cu mm | DEPARTMENT | | | | | | OF | | | | | | PATHOLOGY | | + + + + + + | HEMOGLOBIN | 8.6 (L) | 13.5 - 17.5 | [facility] | | | | | g/dL | DEPARTMENT | | | | | | OF | | | | | | PATHOLOGY | | + + + + + + | HEMATOCRIT | 24.6 (L) | 41.0 - 53.0 % | [facility] | | | | | | DEPARTMENT | | | | | | OF | | | | | | PATHOLOGY | | + + + + + + | MCV | 94.5 | 80.0 - 96.0 fL | [facility] | | | | | | DEPARTMENT | | | | | | OF | | | | | | PATHOLOGY | | + + + + + + | MCHC | 34.8 | 33.4 - 35.5 | [facility] | | | | | g/dL | DEPARTMENT | | | | | | OF | | | | | | PATHOLOGY | | + + + + + + | RDW | 13.0 | 11.5 - 15.0 % | [facility] | | | | | | DEPARTMENT | | | | | | OF | | | | | | PATHOLOGY | | + + + + + + | PLATELET | 169 | 150 - 400 K/cu | [facility] | | | COUNT | | mm | DEPARTMENT | | | | | | OF | | | | | | PATHOLOGY | | + + + + + + + + | Specimen | + + | | + + + + + + + | Performing | Address | City/State/Zipcode | Phone Number | | Organization | | | | + + + + + | [facility] | [address] | [place] [address] | | | PATHOLOGY | [address] | | | + + + + + | [facility] | [address] | [place] [address] | | | PATHOLOGY | [address] | | | + + + + + CULT, BLOOD COLT & BRIAN (02/13/2006 2:31 AM PDT) + + + + + + | Component | Value | Ref Range | Performed | Pathologist | | | | | At | Signature | + + + + + + | SOURCE BODY | Left Hand | | | | | SITE | | | | | + + + + + + | CULTURE | Blood Culture | | | | | RESULT | | | | | | | Source.................. | | | | | | : Left Hand | | | | | | Result.................. | | | | | | . Final: No growth at 5 | | | | | | days.Comment: Test | | | | | | performed at [facility] | | | | | | [facility] | | | | | | Laboratory. | | | | + + + + + + + + | Specimen | + + | | + + + + + + + | Performing | Address | City/State/Zipcode | Phone Number | | Organization | | | | + + + + + | [facility] | [address] | [place] [address] | | | LAB-MICRO | | | | + + + + + CULT, URINE BACTI (02/13/2006 2:30 AM PDT) + + + + + + | Component | Value | Ref Range | Performed | Pathologist | | | | | At | Signature | + + + + + + | SOURCE BODY | retention cath | | | | | SITE | | | | | + + + + + + | CULTURE | Urine Culture | | | | | RESULT | | | | | | | Source...............: | | | | | | retention cath | | | | | | Culture: > | | | | | | 100,000 col/ml | | | | | | Enterococcus | | | | | | species | | | | | | Final | | | | | | ID | | | | | | | | | | | | Enterococcus | | | | | | species | | | | | | Prelim ID | | | | | | | | | | | | | | | | | | PALMER Ampicillin | | | | | | | | | | | | S Nitrofurantoin | | | | | | | | | | | | S Vancomycin | | | | | | S Final | | | | | | ReportComment: Test | | | | | | performed at [facility] | | | | | | [facility] | | | | | | Laboratory. | | | | + + + + + + + + | Specimen | + + | | + + + + + + + | Performing | Address | City/State/Zipcode | Phone Number | | Organization | | | | + + + + + | [facility] | [address] | [place] [address] | | | LAB-MICRO | | | | + + + + + CULT, BLOOD COLT & BRIAN (02/13/2006 2:30 AM PDT) + + + + + + | Component | Value | Ref Range | Performed | Pathologist | | | | | At | Signature | + + + + + + | SOURCE BODY | peripheral stick | | | | | SITE | | | | | + + + + + + | CULTURE | Blood Culture | | | | | RESULT | | | | | | | Source.................. | | | | | | : peripheral stick | | | | | | | | | | | | Result.................. | | | | | | . Final: No growth at 5 | | | | | | days.Comment: Test | | | | | | performed at [facility] | | | | | | [facility] | | | | | | Laboratory. | | | | + + + + + + + + | Specimen | + + | | + + + + + + + | Performing | Address | City/State/Zipcode | Phone Number | | Organization | | | | + + + + + | [facility] | [address] | [place] [address] | | | LAB-MICRO | | | | + + + + + CULTURE, SPUTUM (02/13/2006 2:30 AM PDT) + + + + + + | Component | Value | Ref Range | Performed | Pathologist | | | | | At | Signature | + + + + + + | SOURCE BODY | Endotracheal Aspirate | | | | | SITE | | | | | + + + + + + | CULTURE | Sputum Culture | | | | | RESULT | | | | | | | Source...............: | | | | | | Endotracheal Aspirate | | | | | | RLB Gram | | | | | | Stain...........: Many | | | | | | PMN's | | | | | | | | | | | | No | | | | | | Epithelial | | | | | | cells | | | | | | | | | | | | Many | | | | | | Non-enteric like gram | | | | | | negative | | | | | | bacilli | | | | | | | | | | | | Many | | | | | | Mixed elicia | | | | | | Culture: 3+ | | | | | | Hemophilus influenzae, | | | | | | beta lactamase | | | | | | negative Final | | | | | | ID Mi | | | | | | xed gram positive and | | | | | | gram negative | | | | | | growth | | | | | | Prelim ID 1+ | | | | | | Beta Streptococcus, NOT | | | | | | groups A or | | | | | | B | | | | | | Final ID | | | | | | 1+ Oral | | | | | | elicia | | | | | | | | | | | | | | | | | | Fin | | | | | | al ID Final | | | | | | ReportComment: Test | | | | | | performed at [facility] | | | | | | [facility] | | | | | | Laboratory. | | | | + + + + + + + + | Specimen | + + | | + + + + + + + | Performing | Address | City/State/Zipcode | Phone Number | | Organization | | | | + + + + + | [facility] | [address] | [place] [address] | | | LAB-MICRO | | | | + + + + + BLOOD GASES, ARTERIAL (02/12/2006 10:50 AM PDT) + +--------+ + + + | Component | Value | Ref Range | Performed | Pathologist | | | | | At | Signature | + +--------+ + + + | PAT TEMP | 37.3 | Degree C | [facility] | | | ARTERIAL | | | DEPARTMENT | | | | | | OF | | | | | | PATHOLOGY | | + +--------+ + + + | FIO2 | .30 | | [facility] | | | ARTERIAL | | | DEPARTMENT | | | | | | OF | | | | | | PATHOLOGY | | + +--------+ + + + | PH ARTERIAL | 7.43 | 7.37 - 7.44 | [facility] | | | | | | DEPARTMENT | | | | | | OF | | | | | | PATHOLOGY | | + +--------+ + + + | PCO2 | 43 | 32 - 43 mmHg | [facility] | | | ARTERIAL | | | DEPARTMENT | | | | | | OF | | | | | | PATHOLOGY | | + +--------+ + + + | PO2 | 76 | 72 - 104 mmHg | [facility] | | | ARTERIAL | | | DEPARTMENT | | | | | | OF | | | | | | PATHOLOGY | | + +--------+ + + + | BASE EXCESS | 3.9 | | [facility] | | | ARTERIAL | | | DEPARTMENT | | | | | | OF | | | | | | PATHOLOGY | | + +--------+ + + + | HCO3 | 28 (H) | 21 - 27 mmol/L | [facility] | | | ARTERIAL | | | DEPARTMENT | | | | | | OF | | | | | | PATHOLOGY | | + +--------+ + + + | TOTAL CO2 | 29 (H) | 22 - 28 mmol/L | [facility] | | | ARTERIAL | | | DEPARTMENT | | | | | | OF | | | | | | PATHOLOGY | | + +--------+ + + + | O2 SAT, | 96.8 | 92.0 - 98.0 % | [facility] | | | ARTERIAL | | | DEPARTMENT | | | | | | OF | | | | | | PATHOLOGY | | + +--------+ + + + + + | Specimen | + + | | + + + + + | Narrative | Performed At | + + + | Arterial Blood Gas | [facility] | | | DEPARTMENT OF | | | PATHOLOGY | + + + + + + + + | Performing | Address | City/State/Zipcode | Phone Number | | Organization | | | | + + + + + | [facility] | [address] | [place] [address] | | | PATHOLOGY | [address] | | | + + + + + | [facility] | [address] | [place] [address] | | | PATHOLOGY | [address] | | | + + + + + CHEST 1 VIEW (02/12/2006 5:15 AM PDT) + + + + + + | Component | Value | Ref Range | Performed | Pathologist | | | | | At | Signature | + + + + + + | CHEST, 1 | Radiologist 1: TITO, | | | | | VIEW | Nabor ELDRIDGESingle | | | | | | image chest compared | | | | | | with one day ago shows | | | | | | no changesupport | | | | | | devices, rib | | | | | | fractures. Left | | | | | | perihilar and | | | | | | basilardensity could be | | | | | | subsegmental | | | | | | atelectasis, | | | | | | aspiration,inflammation, | | | | | | contusion. It | | | | | | represents interval | | | | | | worsening.Diffusely | | | | | | described right lung | | | | | | abnormalities with | | | | | | samedifferential are | | | | | | slightly worse. Small | | | | | | pneumo mediastinum | | | | | | againseen. Conclusion: | | | | | | Slight interval | | | | | | worsening. | | | | + + + + + + + + | Specimen | + + | | + + + +---------+ + + | Performing | Address | City/State/Zipcode | Phone Number | | Organization | | | | + +---------+ + + | [facility] DEPARTMENT OF | | | | | RADIOLOGY | | | | + +---------+ + + MAGNESIUM, PLASMA (02/12/2006 2:25 AM PDT) + +-------+ + + + | Component | Value | Ref Range | Performed | Pathologist | | | | | At | Signature | + +-------+ + + + | MAGNESIUM,P | 2.1 | 1.8 - 2.5 mg/dL | [facility] | | | LASMA | | | DEPARTMENT | | | | | | OF | | | | | | PATHOLOGY | | + +-------+ + + + + + | Specimen | + + | | + + + + + + + | Performing | Address | City/State/Zipcode | Phone Number | | Organization | | | | + + + + + | [facility] DEPARTMENT OF | [address] | [place] [address] | | | PATHOLOGY | [address] | | | + + + + + | [facility] DEPARTMENT OF | [address] | [place] [address] | | | PATHOLOGY | [address] | | | + + + + + PHOSPHORUS, PLASMA (02/12/2006 2:25 AM PDT) + +---------+ + + + | Component | Value | Ref Range | Performed | Pathologist | | | | | At | Signature | + +---------+ + + + | PHOSPHORUS, | 1.3 (L) | 2.4 - 4.7 mg/dL | [facility] | | | PLASMA | | | DEPARTMENT | | | (LAB) | | | OF | | | | | | PATHOLOGY | | + +---------+ + + + + + | Specimen | + + | | + + + + + + + | Performing | Address | City/State/Zipcode | Phone Number | | Organization | | | | + + + + + | [facility] DEPARTMENT OF | [address] | [place] [address] | | | PATHOLOGY | [address] | | | + + + + + | [facility] DEPARTMENT OF | [address] | [place] [address] | | | PATHOLOGY | [address] | | | + + + + + BASIC METABOLIC SET (02/12/2006 2:25 AM PDT) + +---------+ + + + | Component | Value | Ref Range | Performed | Pathologist | | | | | At | Signature | + +---------+ + + + | GLUCOSE, | 163 (H) | 65 - 110 mg/dL | [facility] | | | PLASMA | | | DEPARTMENT | | | (LAB) | | | OF | | | | | | PATHOLOGY | | + +---------+ + + + | BUN, PLASMA | 6 | 6 - 20 mg/dL | [facility] | | | (LAB) | | | DEPARTMENT | | | | | | OF | | | | | | PATHOLOGY | | + +---------+ + + + | CREATININE | 0.6 (L) | 0.7 - 1.3 mg/dL | [facility] | | | PLASMA | | | DEPARTMENT | | | (LAB) | | | OF | | | | | | PATHOLOGY | | + +---------+ + + + | SODIUM, | 136 | 136 - 145 | [facility] | | | PLASMA | | mmol/L | DEPARTMENT | | | (LAB) | | | OF | | | | | | PATHOLOGY | | + +---------+ + + + | POTASSIUM, | 3.5 | 3.5 - 5.1 | [facility] | | | PLASMA | | mmol/L | DEPARTMENT | | | (LAB) | | | OF | | | | | | PATHOLOGY | | + +---------+ + + + | CHLORIDE, | 101 | 98 - 107 mmol/L | [facility] | | | PLASMA | | | DEPARTMENT | | | (LAB) | | | OF | | | | | | PATHOLOGY | | + +---------+ + + + | TOTAL CO2, | 29 | 23 - 29 mmol/L | [facility] | | | PLASMA | | | DEPARTMENT | | | (LAB) | | | OF | | | | | | PATHOLOGY | | + +---------+ + + + | CALCIUM, | 8.1 (L) | 8.5 - 10.5 | [facility] | | | PLASMA | | mg/dL | DEPARTMENT | | | (LAB) | | | OF | | | | | | PATHOLOGY | | + +---------+ + + + + + | Specimen | + + | | + + + + + + + | Performing | Address | City/State/Zipcode | Phone Number | | Organization | | | | + + + + + | [facility] DEPARTMENT OF | [address] | [place] [address] | | | PATHOLOGY | [address] | | | + + + + + | [facility] DEPARTMENT [facility] | [address] | [place] [address] | | | PATHOLOGY | [address] | | | + + + + + BLOOD GASES, ARTERIAL (02/12/2006 2:25 AM PDT) + + + + + + | Component | Value | Ref Range | Performed | Pathologist | | | | | At | Signature | + + + + + + | PAT TEMP | 38.8 | Degree C | [facility] | | | ARTERIAL | | | DEPARTMENT | | | | | | OF | | | | | | PATHOLOGY | | + + + + + + | FIO2 | .30 | | [facility] | | | ARTERIAL | | | DEPARTMENT | | | | | | OF | | | | | | PATHOLOGY | | + + + + + + | PH ARTERIAL | 7.36 (L) | 7.37 - 7.44 | [facility] | | | | | | DEPARTMENT | | | | | | OF | | | | | | PATHOLOGY | | + + + + + + | PCO2 | 54 (H) | 32 - 43 mmHg | [facility] | | | ARTERIAL | | | DEPARTMENT | | | | | | OF | | | | | | PATHOLOGY | | + + + + + + | PO2 | 83 | 72 - 104 mmHg | [facility] | | | ARTERIAL | | | DEPARTMENT | | | | | | OF | | | | | | PATHOLOGY | | + + + + + + | BASE EXCESS | 3.9 | | [facility] | | | ARTERIAL | | | DEPARTMENT | | | | | | OF | | | | | | PATHOLOGY | | + + + + + + | HCO3 | 29 (H) | 21 - 27 mmol/L | [facility] | | | ARTERIAL | | | DEPARTMENT | | | | | | OF | | | | | | PATHOLOGY | | + + + + + + | TOTAL CO2 | 31 (H) | 22 - 28 mmol/L | [facility] | | | ARTERIAL | | | DEPARTMENT | | | | | | OF | | | | | | PATHOLOGY | | + + + + + + | O2 SAT, | 95.4 | 92.0 - 98.0 % | [facility] | | | ARTERIAL | | | DEPARTMENT | | | | | | OF | | | | | | PATHOLOGY | | + + + + + + + + | Specimen | + + | | + + + + + | Narrative | Performed At | + + + | Arterial Blood Gas | [facility] | | | DEPARTMENT OF | | | PATHOLOGY | + + + + + + + + | Performing | Address | City/State/Zipcode | Phone Number | | Organization | | | | + + + + + | [facility] | [facility] | [place] [address] | | | PATHOLOGY | [address] | | | + + + + + | [facility] DEPARTMENT OF | [facility] | [place] [address] | | | PATHOLOGY | [address] | | | + + + + + CBC ONLY WITH PLATELET (02/12/2006 2:25 AM PDT) + + + + + + | Component | Value | Ref Range | Performed | Pathologist | | | | | At | Signature | + + + + + + | WHITE CELL | 5.1 | 4.4 - 11.0 K/cu | [facility] | | | COUNT | | mm | DEPARTMENT | | | | | | OF | | | | | | PATHOLOGY | | + + + + + + | RED CELL | 3.29 (L) | 4.50 - 5.90 | [facility] | | | COUNT | | M/cu mm | DEPARTMENT | | | | | | OF | | | | | | PATHOLOGY | | + + + + + + | HEMOGLOBIN | 11.0 (L) | 13.5 - 17.5 | [facility] | | | | | g/dL | DEPARTMENT | | | | | | OF | | | | | | PATHOLOGY | | + + + + + + | HEMATOCRIT | 31.1 (L) | 41.0 - 53.0 % | [facility] | | | | | | DEPARTMENT | | | | | | OF | | | | | | PATHOLOGY | | + + + + + + | MCV | 94.4 | 80.0 - 96.0 fL | [facility] | | | | | | DEPARTMENT | | | | | | OF | | | | | | PATHOLOGY | | + + + + + + | MCHC | 35.4 | 33.4 - 35.5 | [facility] | | | | | g/dL | DEPARTMENT | | | | | | OF | | | | | | PATHOLOGY | | + + + + + + | RDW | 12.9 | 11.5 - 15.0 % | [facility] | | | | | | DEPARTMENT | | | | | | OF | | | | | | PATHOLOGY | | + + + + + + | PLATELET | 166 | 150 - 400 K/cu | [facility] | | | COUNT | | mm | DEPARTMENT | | | | | | OF | | | | | | PATHOLOGY | | + + + + + + + + | Specimen | + + | | + + + + + + + | Performing | Address | City/State/Zipcode | Phone Number | | Organization | | | | + + + + + | [facility] | [address] | [place] [address] | | | PATHOLOGY | [address] | | | + + + + + | [facility] | [address] | [place] [address] | | | PATHOLOGY | [address] | | | + + + + + CHEST 1 VIEW (02/11/2006 1:22 PM PDT) + + + + + + | Component | Value | Ref Range | Performed | Pathologist | | | | | At | Signature | + + + + + + | CHEST, 1 | Radiologist 1: CORINNA, | | | | | VIEW | AIJIROSTUDY: Chest AP | | | | | | view: 02/11/06 | | | | | | COMPARISON: Earlier the | | | | | | same day CLINICAL | | | | | | DATA: Evaluate | | | | | | feeding tube placement | | | | | | FINDINGS: A Dobhoff | | | | | | feeding tube has been | | | | | | placed with the tip in | | | | | | theproximal | | | | | | jejunum. The | | | | | | endotracheal tube is | | | | | | unchanged. Thepreviou | | | | | | sly seen enteric tube | | | | | | has been removed. A | | | | | | right chest tubeis | | | | | | present. The | | | | | | appearance of the lungs | | | | | | is unchanged. There | | | | | | ispneumomediastinum, as | | | | | | before. IMPRESSION: | | | | | | 1. Dobhoff feeding | | | | | | tube placed with the tip | | | | | | in the | | | | | | proximaljejunum. Prev | | | | | | iously seen enteric tube | | | | | | has been removed. | | | | + + + + + + + + | Specimen | + + | | + + + +---------+ + + | Performing | Address | City/State/Zipcode | Phone Number | | Organization | | | | + +---------+ + + | [facility] DEPARTMENT OF | | | | | RADIOLOGY | | | | + +---------+ + + MRI SPINE CERVICAL WO CONTRAST (02/11/2006 12:10 PM PDT) + + + + + + | Component | Value | Ref Range | Performed | Pathologist | | | | | At | Signature | + + + + + + | MR CERVICAL | Radiologist 1: PRINCESS, | | | | | SPINE WO | YANNICK Gage, | | | | | CONTRAST | M.D.-Radiologist 2: | | | | | | DOMINIQUE CRANE: MRI | | | | | | cervical spine without | | | | | | contrast 02/11/06 | | | | | | COMPARISON: CT cervical | | | | | | spine 02/11/06. PERTINENT | | | | | | CLINICAL HISTORY: | | | | | | Trauma. TECHNIQUE: | | | | | | Following MRI pulse | | | | | | sequences were | | | | | | obtained:1. Sagittal | | | | | | stir, T2, T2 GRE, | | | | | | T1.2. Axial T1, T2 | | | | | | DISCUSSION: A T1 and T2 | | | | | | dark focus in the mid | | | | | | portion of C2 is | | | | | | consistent witha physeal | | | | | | scar. There is a | | | | | | nondisplaced fracture of | | | | | | the [id number] | | | | | | process. Vertebral | | | | | | body alignment and disc | | | | | | spaces | | | | | | aremaintained. The | | | | | | atlantodens interval is | | | | | | normal. No | | | | | | prevertebralsoft tissue | | | | | | swelling is | | | | | | present. No focal | | | | | | cord signal | | | | | | abnormalityis | | | | | | identified. There is | | | | | | diffusely increased T2 | | | | | | signal within the | | | | | | posteriorparaspinal soft | | | | | | tissues. No | | | | | | interspinous widening or | | | | | | facetmalalignment is | | | | | | present. There is | | | | | | slight asymmetric | | | | | | increasedfluid in the | | | | | | left atlantooccipital | | | | | | joint. IMPRESSION: | | | | | | 1. Nondisplaced C7 | | | | | | spinous process | | | | | | fracture. 2. Edema | | | | | | within the posterior | | | | | | paraspinal soft tissues, | | | | | | compatiblewith sprain. | | | | | | No evidence for | | | | | | ligamentous instability. | | | | + + + + + + + + | Specimen | + + | | + + + +---------+ + + | Performing | Address | City/State/Zipcode | Phone Number | | Organization | | | | + +---------+ + + | [facility] DEPARTMENT OF | | | | | RADIOLOGY | | | | + +---------+ + + MRI BRAIN WO CONTRAST (02/11/2006 12:10 PM PDT) + + + + + + | Component | Value | Ref Range | Performed | Pathologist | | | | | At | Signature | + + + + + + | MR BRAIN WO | Radiologist 1: PRINCESS, | | | | | CONTRAST | YANNICK Gage, | | | | | | M.DRamiro-Radiologist 2: | | | | | | DOMINIQUE CRANE: MRI | | | | | | brain without contrast | | | | | | 02/11/06. COMPARISON: | | | | | | NONE PERTINENT CLINICAL | | | | | | HISTORY: Trauma. | | | | | | TECHNIQUE: The following | | | | | | MRI pulse sequences | | | | | | were | | | | | | obtained:1. Axial | | | | | | DWI, ADC, FLAIR, proton | | | | | | density, | | | | | | GRE.2. Sagittal T1. | | | | | | DISCUSSION: A large area | | | | | | of the diffusion | | | | | | restriction is present | | | | | | within thesplenium of | | | | | | the corpus | | | | | | callosum. Smaller | | | | | | foci of restriction | | | | | | arenoted in the right | | | | | | sub insular sub cortical | | | | | | white matter, in | | | | | | theright occipital | | | | | | subcortical white | | | | | | matter, and in the | | | | | | inferiorright temporal | | | | | | lobe and left posterior | | | | | | hippocampus | | | | | | subcorticalwhite | | | | | | matter. There are | | | | | | additional high T2 | | | | | | signal lesions whichdo | | | | | | not fluid restrict | | | | | | within the right tectum, | | | | | | and left | | | | | | basalganglia. There | | | | | | are multiple punctate | | | | | | GRE dark lesions in the | | | | | | subcortical white matter | | | | | | near the vertex, and | | | | | | associated with theright | | | | | | sub insular and | | | | | | temporal lesions | | | | | | described | | | | | | above. Midlineanatomy | | | | | | is normal. Cerebral | | | | | | morphology is | | | | | | anatomic. Theventricl | | | | | | es are normal in size | | | | | | and symmetric. The | | | | | | majorintracranial flow | | | | | | voids are | | | | | | maintained. The | | | | | | orbits | | | | | | areunremarkable. Ther | | | | | | e is fluid within the | | | | | | nasopharynx and | | | | | | sinuses,and an | | | | | | endotracheal tube is in | | | | | | place. IMPRESSION: | | | | | | Multiple foci of | | | | | | diffusion restriction in | | | | | | a pattern | | | | | | compatiblewith diffuse | | | | | | axonal injury. | | | | + + + + + + + + | Specimen | + + | | + + + +---------+ + + | Performing | Address | City/State/Zipcode | Phone Number | | Organization | | | | + +---------+ + + | [facility] DEPARTMENT OF | | | | | RADIOLOGY | | | | + +---------+ + + CHEST 1 VIEW (02/11/2006 5:15 AM PDT) + + + + + + | Component | Value | Ref Range | Performed | Pathologist | | | | | At | Signature | + + + + + + | CHEST, 1 | Radiologist 1: CORINNA, | | | | | VIEW | VALDEMAR-Radiologist 2: | | | | | | CHELA, | | | | | | GENEVAEXAM: AP Chest | | | | | | COMPARISON: Yesterday. | | | | | | FINDINGS: The cardiac | | | | | | and mediastinal | | | | | | contours are | | | | | | stable.Endotracheal tube | | | | | | and support equipment | | | | | | remain in | | | | | | unchangedposition. Th | | | | | | ere has been slight | | | | | | interval improvement | | | | | | inright-sided ground | | | | | | glass and consolidative | | | | | | opacities compatiblewith | | | | | | aspiration, atelectasis | | | | | | and pulmonary | | | | | | contusion. | | | | | | Bibasilaratelectasis is | | | | | | unchanged. Multiple | | | | | | right sided rib | | | | | | fractures areagain | | | | | | noted. There has been | | | | | | slight interval | | | | | | improvement | | | | | | inright-sided chest wall | | | | | | subcutaneous | | | | | | emphysema. Pneumomedi | | | | | | astinumis unchanged. | | | | | | IMPRESSION: | | | | | | 1. Unchanged | | | | | | pneumomediastinum and | | | | | | residual right | | | | | | pneumothorax. | | | | | | 2. Slight interval | | | | | | improvement in right mid | | | | | | lung zone groundglass | | | | | | and consolidative | | | | | | opacities compatible | | | | | | with | | | | | | aspiration,atelectasis | | | | | | and pulmonary contusion. | | | | | | 3. Multiple right | | | | | | rib fractures. | | | | + + + + + + + + | Specimen | + + | | + + + +---------+ + + | Performing | Address | City/State/Zipcode | Phone Number | | Organization | | | | + +---------+ + + | [facility] DEPARTMENT OF | | | | | RADIOLOGY | | | | + +---------+ + + CT HEAD WO CONTRAST (02/11/2006 3:50 AM PDT) + + + + + + | Component | Value | Ref Range | Performed | Pathologist | | | | | At | Signature | + + + + + + | CT HEAD WO | Radiologist 1: ROMERO, | | | | | CONTRAST | Nabor DANG-Radiologist | | | | | | 2: CRYSTAL FRANK M.D. | | | | | | EXAM: Noncontrast CT | | | | | | brain COMPARISON: | | | | | | 02/09/06 HISTORY: | | | | | | Evaluate cerebral edema | | | | | | TECHNIQUE: 6 mm | | | | | | noncontrast axial CT | | | | | | images of the brain | | | | | | reviewedin brain and | | | | | | bone windows FINDINGS: | | | | | | No intra or extraaxial | | | | | | abnormality is seen. In | | | | | | particular, thereis no | | | | | | evidence of a mass | | | | | | lesion, infarction or | | | | | | hemorrhage. | | | | | | Normalventricular size, | | | | | | basal cisterns and | | | | | | cortical sulci. There | | | | | | isunder pneumatization | | | | | | of the right mastoid | | | | | | cells and | | | | | | moderateopacification of | | | | | | the visualized | | | | | | paranasal sinuses. | | | | | | IMPRESSION: No | | | | | | intracranial abnormality | | | | | | is identified. | | | | + + + + + + + + | Specimen | + + | | + + + +---------+ + + | Performing | Address | City/State/Zipcode | Phone Number | | Organization | | | | + +---------+ + + | [facility] DEPARTMENT OF | | | | | RADIOLOGY | | | | + +---------+ + + CBC ONLY WITH PLATELET (02/11/2006 3:11 AM PDT) + + + + + + | Component | Value | Ref Range | Performed | Pathologist | | | | | At | Signature | + + + + + + | WHITE CELL | 4.6 | 4.4 - 11.0 K/cu | [facility] | | | COUNT | | mm | DEPARTMENT | | | | | | OF | | | | | | PATHOLOGY | | + + + + + + | RED CELL | 3.55 (L) | 4.50 - 5.90 | [facility] | | | COUNT | | M/cu mm | DEPARTMENT | | | | | | OF | | | | | | PATHOLOGY | | + + + + + + | HEMOGLOBIN | 11.7 (L) | 13.5 - 17.5 | [facility] | | | | | g/dL | DEPARTMENT | | | | | | OF | | | | | | PATHOLOGY | | + + + + + + | HEMATOCRIT | 33.6 (L) | 41.0 - 53.0 % | [facility] | | | | | | DEPARTMENT | | | | | | OF | | | | | | PATHOLOGY | | + + + + + + | MCV | 94.5 | 80.0 - 96.0 fL | [facility] | | | | | | DEPARTMENT | | | | | | OF | | | | | | PATHOLOGY | | + + + + + + | MCHC | 35.0 | 33.4 - 35.5 | [facility] | | | | | g/dL | DEPARTMENT | | | | | | OF | | | | | | PATHOLOGY | | + + + + + + | RDW | 13.1 | 11.5 - 15.0 % | [facility] | | | | | | DEPARTMENT | | | | | | OF | | | | | | PATHOLOGY | | + + + + + + | PLATELET | 160 | 150 - 400 K/cu | [facility] | | | COUNT | | mm | DEPARTMENT | | | | | | OF | | | | | | PATHOLOGY | | + + + + + + + + | Specimen | + + | | + + + + + + + | Performing | Address | City/State/Zipcode | Phone Number | | Organization | | | | + + + + + | [facility] | [address] | [place] [address] | | | PATHOLOGY | [address] | | | + + + + + | [facility] | [address] | [place] [address] | | | PATHOLOGY | [address] | | | + + + + + BASIC METABOLIC SET (02/11/2006 3:11 AM PDT) + +---------+ + + + | Component | Value | Ref Range | Performed | Pathologist | | | | | At | Signature | + +---------+ + + + | GLUCOSE, | 114 (H) | 65 - 110 mg/dL | [facility] | | | PLASMA | | | DEPARTMENT | | | (LAB) | | | OF | | | | | | PATHOLOGY | | + +---------+ + + + | BUN, PLASMA | 6 | 6 - 20 mg/dL | [facility] | | | (LAB) | | | DEPARTMENT | | | | | | OF | | | | | | PATHOLOGY | | + +---------+ + + + | CREATININE | 0.6 (L) | 0.7 - 1.3 mg/dL | [facility] | | | PLASMA | | | DEPARTMENT | | | (LAB) | | | OF | | | | | | PATHOLOGY | | + +---------+ + + + | SODIUM, | 135 (L) | 136 - 145 | [facility] | | | PLASMA | | mmol/L | DEPARTMENT | | | (LAB) | | | OF | | | | | | PATHOLOGY | | + +---------+ + + + | POTASSIUM, | 4.0 | 3.5 - 5.1 | [facility] | | | PLASMA | | mmol/L | DEPARTMENT | | | (LAB) | | | OF | | | | | | PATHOLOGY | | + +---------+ + + + | CHLORIDE, | 97 (L) | 98 - 107 mmol/L | [facility] | | | PLASMA | | | DEPARTMENT | | | (LAB) | | | OF | | | | | | PATHOLOGY | | + +---------+ + + + | TOTAL CO2, | 27 | 23 - 29 mmol/L | [facility] | | | PLASMA | | | DEPARTMENT | | | (LAB) | | | OF | | | | | | PATHOLOGY | | + +---------+ + + + | CALCIUM, | 7.8 (L) | 8.5 - 10.5 | [facility] | | | PLASMA | | mg/dL | DEPARTMENT | | | (LAB) | | | OF | | | | | | PATHOLOGY | | + +---------+ + + + + + | Specimen | + + | | + + + + + + + | Performing | Address | City/State/Zipcode | Phone Number | | Organization | | | | + + + + + | [facility] DEPARTMENT OF | [address] | [place] [address] | | | PATHOLOGY | [address] | | | + + + + + | [facility] DEPARTMENT OF | [address] | [place] [address] | | | PATHOLOGY | [address] | | | + + + + + BLOOD GASES, ARTERIAL (02/11/2006 3:11 AM PDT) + + + + + + | Component | Value | Ref Range | Performed | Pathologist | | | | | At | Signature | + + + + + + | PAT TEMP | 38.7 | Degree C | [facility] | | | ARTERIAL | | | DEPARTMENT | | | | | | OF | | | | | | PATHOLOGY | | + + + + + + | FIO2 | .40 | | [facility] | | | ARTERIAL | | | DEPARTMENT | | | | | | OF | | | | | | PATHOLOGY | | + + + + + + | PH ARTERIAL | 7.38 | 7.37 - 7.44 | [facility] | | | | | | DEPARTMENT | | | | | | OF | | | | | | PATHOLOGY | | + + + + + + | PCO2 | 47 (H) | 32 - 43 mmHg | [facility] | | | ARTERIAL | | | DEPARTMENT | | | | | | OF | | | | | | PATHOLOGY | | + + + + + + | PO2 | 113 (H) | 72 - 104 mmHg | [facility] | | | ARTERIAL | | | DEPARTMENT | | | | | | OF | | | | | | PATHOLOGY | | + + + + + + | BASE EXCESS | 2.1 | | [facility] | | | ARTERIAL | | | DEPARTMENT | | | | | | OF | | | | | | PATHOLOGY | | + + + + + + | HCO3 | 27 | 21 - 27 mmol/L | [facility] | | | ARTERIAL | | | DEPARTMENT | | | | | | OF | | | | | | PATHOLOGY | | + + + + + + | TOTAL CO2 | 28 | 22 - 28 mmol/L | [facility] | | | ARTERIAL | | | DEPARTMENT | | | | | | OF | | | | | | PATHOLOGY | | + + + + + + | O2 SAT, | 98.6 (H) | 92.0 - 98.0 % | [facility] | | | ARTERIAL | | | DEPARTMENT | | | | | | OF | | | | | | PATHOLOGY | | + + + + + + + + | Specimen | + + | | + + + + + | Narrative | Performed At | + + + | Arterial Blood Gas | [facility] | | | DEPARTMENT OF | | | PATHOLOGY | + + + + + + + + | Performing | Address | City/State/Zipcode | Phone Number | | Organization | | | | + + + + + | [facility] DEPARTMENT OF | [address] | [place] [address] | | | PATHOLOGY | [address] | | | + + + + + | [facility] DEPARTMENT OF | [address] | [place] [address] | | | PATHOLOGY | [address] | | | + + + + + PHOSPHORUS, PLASMA (02/11/2006 3:11 AM PDT) + +---------+ + + + | Component | Value | Ref Range | Performed | Pathologist | | | | | At | Signature | + +---------+ + + + | PHOSPHORUS, | 1.4 (L) | 2.4 - 4.7 mg/dL | [facility] | | | PLASMA | | | DEPARTMENT | | | (LAB) | | | OF | | | | | | PATHOLOGY | | + +---------+ + + + + + | Specimen | + + | | + + + + + + + | Performing | Address | City/State/Zipcode | Phone Number | | Organization | | | | + + + + + | [facility] DEPARTMENT OF | [facility] | [place] [address] | | | PATHOLOGY | [address] | | | + + + + + | [facility] DEPARTMENT OF | [address] | [place] [address] | | | PATHOLOGY | [address] | | | + + + + + MAGNESIUM, PLASMA (02/11/2006 3:11 AM PDT) + +-------+ + + + | Component | Value | Ref Range | Performed | Pathologist | | | | | At | Signature | + +-------+ + + + | MAGNESIUM,P | 2.1 | 1.8 - 2.5 mg/dL | [facility] | | | LASMA | | | DEPARTMENT | | | | | | OF | | | | | | PATHOLOGY | | + +-------+ + + + + + | Specimen | + + | | + + + + + + + | Performing | Address | City/State/Zipcode | Phone Number | | Organization | | | | + + + + + | [facility] DEPARTMENT OF | [address] | [place] [address] | | | PATHOLOGY | [address] | | | + + + + + | [facility] DEPARTMENT OF | [address] | [place] [address] | | | PATHOLOGY | [address] | | | + + + + + PREALBUMIN (02/11/2006 3:11 AM PDT) + + + + + + | Component | Value | Ref Range | Performed | Pathologist | | | | | At | Signature | + + + + + + | PREALBUMIN | 196Comment: No | 180 - 445 mg/L | | | | | Range Available for | | | | | | Children <58 | | | | | | Days. Test | | | | | | performed by [facility] | | | | | | [facility] | | | | | | Laboratories. | | | | + + + + + + + + | Specimen | + + | | + + + + + + + | Performing | Address | City/State/Zipcode | Phone Number | | Organization | | | | + + + + + | [facility] | [address] | [place] [address] | | | LABORATORY | | | | + + + + + CULT, URINE BACTI (02/10/2006 8:46 PM PDT) + + + + + + | Component | Value | Ref Range | Performed | Pathologist | | | | | At | Signature | + + + + + + | SOURCE BODY | Retention catheter | | | | | SITE | | | | | + + + + + + | CULTURE | Urine Culture | | | | | RESULT | | | | | | | Source...............: | | | | | | Retention catheter | | | | | | | | | | | | Culture: Final | | | | | | Report: No growth (< | | | | | | 1,000 col/ml) after | | | | | | 18-24 | | | | | | | | | | | | hours | | | | | | Final ReportComment: | | | | | | Test performed at | | | | | | [facility] [place] | | | | | | [facility]. | | | | + + + + + + + + | Specimen | + + | | + + + + + + + | Performing | Address | City/State/Zipcode | Phone Number | | Organization | | | | + + + + + | [facility] | [address] | [place] [address] | | | LAB-MICRO | | | | + + + + + CULT, BLOOD COLT & BRIAN (02/10/2006 8:30 PM PDT) + + + + + + | Component | Value | Ref Range | Performed | Pathologist | | | | | At | Signature | + + + + + + | SOURCE BODY | Peripheral | | | | | SITE | | | | | + + + + + + | CULTURE | Blood Culture | | | | | RESULT | | | | | | | Source.................. | | | | | | : Peripheral | | | | | | Result.................. | | | | | | . Final: No growth at 5 | | | | | | days.Comment: Test | | | | | | performed at [facility] | | | | | | [facility] | | | | | | Laboratory. | | | | + + + + + + + + | Specimen | + + | | + + + + + + + | Performing | Address | City/State/Zipcode | Phone Number | | Organization | | | | + + + + + | [facility] | [address] | [place] [address] | | | LAB-MICRO | | | | + + + + + CULT, BLOOD COLT & BRIAN (02/10/2006 8:30 PM PDT) + + + + + + | Component | Value | Ref Range | Performed | Pathologist | | | | | At | Signature | + + + + + + | SOURCE BODY | Arterial line | | | | | SITE | | | | | + + + + + + | CULTURE | Blood Culture | | | | | RESULT | | | | | | | Source.................. | | | | | | : Arterial line | | | | | | | | | | | | Result.................. | | | | | | . Final: No growth at 5 | | | | | | days.Comment: Test | | | | | | performed at [facility] | | | | | | [facility] | | | | | | Laboratory. | | | | + + + + + + + + | Specimen | + + | | + + + + + + + | Performing | Address | City/State/Zipcode | Phone Number | | Organization | | | | + + + + + | [facility] | [address] | [place] [address] | | | LAB-MICRO | | | | + + + + + CULTURE, SPUTUM (02/10/2006 8:30 PM PDT) + + + + + + | Component | Value | Ref Range | Performed | Pathologist | | | | | At | Signature | + + + + + + | SOURCE BODY | Endotracheal Aspirate | | | | | SITE | | | | | + + + + + + | CULTURE | Sputum Culture | | | | | RESULT | | | | | | | Source...............: | | | | | | Endotracheal Aspirate | | | | | | RLB Gram | | | | | | Stain...........: No | | | | | | Epithelial | | | | | | cells | | | | | | | | | | | | Many | | | | | | PMN's | | | | | | | | | | | | Many Gram | | | | | | negative | | | | | | bacillus | | | | | | | | | | | | Many | | | | | | Mixed elicia | | | | | | Culture: 4+ | | | | | | Hemophilus influenzae, | | | | | | beta lactamase | | | | | | negative Final | | | | | | ID Gr | | | | | | am negative | | | | | | growth | | | | | | | | | | | | | | | | | | Prelim ID | | | | | | 3+ Oral | | | | | | elicia | | | | | | | | | | | | | | | | | | Final ID | | | | | | Final ReportComment: | | | | | | Test performed at [facility] | | | | | | [facility] | | | | | | [facility]. | | | | + + + + + + + + | Specimen | + + | | + + + + + + + | Performing | Address | City/State/Zipcode | Phone Number | | Organization | | | | + + + + + | [facility] | [address] | [place] [address] | | | LAB-MICRO | | | | + + + + + CHEST 1 VIEW (02/10/2006 2:49 PM PDT) + + + + + + | Component | Value | Ref Range | Performed | Pathologist | | | | | At | Signature | + + + + + + | CHEST, 1 | Radiologist 1: CORINNA, | | | | | VIEW | VALDEMAR-Radiologist 2: | | | | | | CHELA | | | | | | GENEVAEXAM: AP Chest | | | | | | COMPARISON: Yesterday. | | | | | | FINDINGS: The cardiac | | | | | | and mediastinal | | | | | | contours are | | | | | | stable.Endotracheal tube | | | | | | and support equipment | | | | | | remain in | | | | | | unchangedposition. | | | | | | Right-sided ground glass | | | | | | and consolidative | | | | | | opacitiescompatible with | | | | | | aspiration, atelectasis | | | | | | vs. pulmonary | | | | | | contusionare not | | | | | | significantly changed. | | | | | | There is increased | | | | | | bibasilaratelectasis. | | | | | | The previously seen | | | | | | right lower medial | | | | | | pneumothoraxis less | | | | | | conspicuous on this | | | | | | exam. Multiple right | | | | | | sided ribfractures are | | | | | | again noted. There has | | | | | | been slight | | | | | | intervalimprovement in | | | | | | right-sided chest wall | | | | | | subcutaneous | | | | | | emphysema.Pneumomediasti | | | | | | num is slightly | | | | | | improved. A new | | | | | | spinal bracepartially | | | | | | obscures the | | | | | | mediastinum. IMPRESSION: | | | | | | 1. Unchanged right | | | | | | lower lobe contusion | | | | | | and/oraspiration/atelect | | | | | | asis. 2. Unchanged | | | | | | pneumomediastinum | | | | | | 3. Multiple right rib | | | | | | fractures. | | | | | | 4. Increased | | | | | | bibasilar atelectasis. | | | | + + + + + + + + | Specimen | + + | | + + + +---------+ + + | Performing | Address | City/State/[facility] | Phone Number | | Organization | | | | + +---------+ + + | [facility] DEPARTMENT OF | | | | | RADIOLOGY | | | | + +---------+ + + CHEST 1 VIEW (02/10/2006 6:34 AM PDT) + + + + + + | Component | Value | Ref Range | Performed | Pathologist | | | | | At | Signature | + + + + + + | CHEST, 1 | Radiologist 1: CORINNA | | | | | VIEW | AICLARITZA-Radiologist 2: | | | | | | KATHIE MORALES: AP | | | | | | chest. COMPARISON: | | | | | | 02/09/2006. CLINICAL | | | | | | HISTORY: Evaluate | | | | | | pneumothorax. FINDINGS: | | | | | | A right chest tube is in | | | | | | place. Right-sided | | | | | | pneumothorax | | | | | | isdemonstrated in the | | | | | | medial right | | | | | | hemithorax. The | | | | | | endotrachealtube | | | | | | terminates 8.5 cm | | | | | | superior | | | | | | cornel. Enteric tube | | | | | | is seencoursing below | | | | | | the diaphragm with tip | | | | | | not visualized. | | | | | | Right-sided ground glass | | | | | | and consolidative | | | | | | opacities | | | | | | arerepresentative of | | | | | | aspiration, atelectasis | | | | | | and contusion. There | | | | | | isleft perihilar and | | | | | | lower lobe | | | | | | atelectasis. Pneumome | | | | | | diastinum isevident. | | | | | | There are fractures of | | | | | | the lateral 7th, 8th, | | | | | | and 9th right ribs.The | | | | | | lucencies in the right | | | | | | humerus are likely | | | | | | subchondral | | | | | | cystssecondary to | | | | | | degenerative | | | | | | disease. Right-sided | | | | | | chest wallsubcutaneous | | | | | | air is noted. | | | | | | IMPRESSION: | | | | | | 1. Pneumothorax seen | | | | | | in the medial right | | | | | | hemithorax. | | | | | | 2. Pneumomediastinum. | | | | | | 3. 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 | | | | | | 4. Multiple | | | | | | right-sided rib | | | | | | fractures. | | | | + + + + + + + + | Specimen | + + | | + + + +---------+ + + | Performing | Address | City/State/Zipcode | Phone Number | | Organization | | | | + +---------+ + + | [facility] DEPARTMENT OF | | | | | RADIOLOGY | | | | + +---------+ + + MAGNESIUM, PLASMA (02/10/2006 4:56 AM PDT) + +-------+ + + + | Component | Value | Ref Range | Performed | Pathologist | | | | | At | Signature | + +-------+ + + + | MAGNESIUM,P | 1.8 | 1.8 - 2.5 mg/dL | [facility] | | | LASMA | | | DEPARTMENT | | | | | | OF | | | | | | PATHOLOGY | | + +-------+ + + + + + | Specimen | + + | | + + + + + + + | Performing | Address | City/State/Zipcode | Phone Number | | Organization | | | | + + + + + | [facility] DEPARTMENT OF | [facility] | [place] [address] | | | PATHOLOGY | [address] | | | + + + + + | [facility] DEPARTMENT OF | [address] | [place] [address] | | | PATHOLOGY | [address] | | | + + + + + PHOSPHORUS, PLASMA (02/10/2006 4:56 AM PDT) + +-------+ + + + | Component | Value | Ref Range | Performed | Pathologist | | | | | At | Signature | + +-------+ + + + | PHOSPHORUS, | 3.1 | 2.4 - 4.7 mg/dL | [facility] | | | PLASMA | | | DEPARTMENT | | | (LAB) | | | OF | | | | | | PATHOLOGY | | + +-------+ + + + + + | Specimen | + + | | + + + + + + + | Performing | Address | City/State/Zipcode | Phone Number | | Organization | | | | + + + + + | [facility] DEPARTMENT OF | [address] | [place] [address] | | | PATHOLOGY | [address] | | | + + + + + | [facility] DE[facility]MENT OF | [address] | [place] [address] | | | PATHOLOGY | [address] | | | + + + + + BASIC METABOLIC SET (02/10/2006 4:56 AM PDT) + +---------+ + + + | Component | Value | Ref Range | Performed | Pathologist | | | | | At | Signature | + +---------+ + + + | GLUCOSE, | 134 (H) | 65 - 110 mg/dL | [facility] | | | PLASMA | | | DEPARTMENT | | | (LAB) | | | OF | | | | | | PATHOLOGY | | + +---------+ + + + | BUN, PLASMA | 6 | 6 - 20 mg/dL | [facility] | | | (LAB) | | | DEPARTMENT | | | | | | OF | | | | | | PATHOLOGY | | + +---------+ + + + | CREATININE | 0.7 | 0.7 - 1.3 mg/dL | [facility] | | | PLASMA | | | DEPARTMENT | | | (LAB) | | | OF | | | | | | PATHOLOGY | | + +---------+ + + + | SODIUM, | 140 | 136 - 145 | [facility] | | | PLASMA | | mmol/L | DEPARTMENT | | | (LAB) | | | OF | | | | | | PATHOLOGY | | + +---------+ + + + | POTASSIUM, | 4.2 | 3.5 - 5.1 | [facility] | | | PLASMA | | mmol/L | DEPARTMENT | | | (LAB) | | | OF | | | | | | PATHOLOGY | | + +---------+ + + + | CHLORIDE, | 110 (H) | 98 - 107 mmol/L | [facility] | | | PLASMA | | | DEPARTMENT | | | (LAB) | | | OF | | | | | | PATHOLOGY | | + +---------+ + + + | TOTAL CO2, | 22 (L) | 23 - 29 mmol/L | [facility] | | | PLASMA | | | DEPARTMENT | | | (LAB) | | | OF | | | | | | PATHOLOGY | | + +---------+ + + + | CALCIUM, | 7.9 (L) | 8.5 - 10.5 | [facility] | | | PLASMA | | mg/dL | DEPARTMENT | | | (LAB) | | | OF | | | | | | PATHOLOGY | | + +---------+ + + + + + | Specimen | + + | | + + + + + + + | Performing | Address | City/State/Zipcode | Phone Number | | Organization | | | | + + + + + | [facility] | [address] | [place] [address] | | | PATHOLOGY | [address] | | | + + + + + | [facility] | [address] | [place] [address] | | | PATHOLOGY | [address] | | | + + + + + BLOOD GASES, ARTERIAL (02/10/2006 4:56 AM PDT) + +-------+ + + + | Component | Value | Ref Range | Performed | Pathologist | | | | | At | Signature | + +-------+ + + + | PAT TEMP | 37.7 | Degree C | [facility] | | | ARTERIAL | | | DEPARTMENT | | | | | | OF | | | | | | PATHOLOGY | | + +-------+ + + + | FIO2 | .40 | | [facility] | | | ARTERIAL | | | DEPARTMENT | | | | | | OF | | | | | | PATHOLOGY | | + +-------+ + + + | PH ARTERIAL | 7.37 | 7.37 - 7.44 | [facility] | | | | | | DEPARTMENT | | | | | | OF | | | | | | PATHOLOGY | | + +-------+ + + + | PCO2 | 38 | 32 - 43 mmHg | [facility] | | | ARTERIAL | | | DEPARTMENT | | | | | | OF | | | | | | PATHOLOGY | | + +-------+ + + + | PO2 | 76 | 72 - 104 mmHg | [facility] | | | ARTERIAL | | | DEPARTMENT | | | | | | OF | | | | | | PATHOLOGY | | + +-------+ + + + | BASE EXCESS | -3.3 | | [facility] | | | ARTERIAL | | | DEPARTMENT | | | | | | OF | | | | | | PATHOLOGY | | + +-------+ + + + | HCO3 | 21 | 21 - 27 mmol/L | [facility] | | | ARTERIAL | | | DEPARTMENT | | | | | | OF | | | | | | PATHOLOGY | | + +-------+ + + + | TOTAL CO2 | 22 | 22 - 28 mmol/L | [facility] | | | ARTERIAL | | | DEPARTMENT | | | | | | OF | | | | | | PATHOLOGY | | + +-------+ + + + | O2 SAT, | 95.6 | 92.0 - 98.0 % | [facility] | | | ARTERIAL | | | DEPARTMENT | | | | | | OF | | | | | | PATHOLOGY | | + +-------+ + + + + + | Specimen | + + | | + + + + + | Narrative | Performed At | + + + | Arterial Blood Gas | [facility] | | | DEPARTMENT OF | | | PATHOLOGY | + + + + + + + + | Performing | Address | City/State/Zipcode | Phone Number | | Organization | | | | + + + + + | [facility] DEPARTMENT OF | [address] | [place] [address] | | | PATHOLOGY | [address] | | | + + + + + | [facility] DE[facility]MENT OF | [address] | [place] [address] | | | PATHOLOGY | [address] | | | + + + + + CBC ONLY WITH PLATELET (02/10/2006 4:56 AM PDT) + + + + + + | Component | Value | Ref Range | Performed | Pathologist | | | | | At | Signature | + + + + + + | WHITE CELL | 9.1 | 4.4 - 11.0 K/cu | [facility] | | | COUNT | | mm | DEPARTMENT | | | | | | OF | | | | | | PATHOLOGY | | + + + + + + | RED CELL | 4.27 (L) | 4.50 - 5.90 | [facility] | | | COUNT | | M/cu mm | DEPARTMENT | | | | | | OF | | | | | | PATHOLOGY | | + + + + + + | HEMOGLOBIN | 14.4 | 13.5 - 17.5 | [facility] | | | | | g/dL | DEPARTMENT | | | | | | OF | | | | | | PATHOLOGY | | + + + + + + | HEMATOCRIT | 40.0 (L) | 41.0 - 53.0 % | [facility] | | | | | | DEPARTMENT | | | | | | OF | | | | | | PATHOLOGY | | + + + + + + | MCV | 93.5 | 80.0 - 96.0 fL | [facility] | | | | | | DEPARTMENT | | | | | | OF | | | | | | PATHOLOGY | | + + + + + + | MCHC | 35.9 (H) | 33.4 - 35.5 | [facility] | | | | | g/dL | DEPARTMENT | | | | | | OF | | | | | | PATHOLOGY | | + + + + + + | RDW | 13.1 | 11.5 - 15.0 % | [facility] | | | | | | DEPARTMENT | | | | | | OF | | | | | | PATHOLOGY | | + + + + + + | PLATELET | 233 | 150 - 400 K/cu | [facility] | | | COUNT | | mm | DEPARTMENT | | | | | | OF | | | | | | PATHOLOGY | | + + + + + + + + | Specimen | + + | | + + + + + + + | Performing | Address | City/State/Zipcode | Phone Number | | Organization | | | | + + + + + | [facility] DEPARTMENT OF | [address] | [place] [address] | | | PATHOLOGY | [address] | | | + + + + + | [facility]MENT OF | [address] | [place] [address] | | | PATHOLOGY | [address] | | | + + + + + APTT (ACT. PART. THROMBO TIME) (02/10/2006 4:56 AM PDT) + + + + + + | Component | Value | Ref Range | Performed | Pathologist | | | | | At | Signature | + + + + + + | APTT | 27.1Comment: | 26.0 - 36.0 | [facility] | | | | APTT | seconds | DEPARTMENT | | | | Therapeutic | | OF | | | | Range | | PATHOLOGY | | | | | | | | | | (75-120)sec | | | | | | Hepa | | | | | | rin levels of 0.35-0.7 | | | | | | U/mL | | | | + + + + + + + + | Specimen | + + | | + + + + + + + | Performing | Address | City/State/Zipcode | Phone Number | | Organization | | | | + + + + + | [facility] | [facility] | [place] [address] | | | PATHOLOGY | [address] | | | + + + + + | [facility] | [address] [place] [address] | [place] [address] | | | PATHOLOGY | [address] | | | + + + + + PROTHROMBIN TIME (02/10/2006 4:56 AM PDT) + + + + + + | Component | Value | Ref Range | Performed | Pathologist | | | | | At | Signature | + + + + + + | INR | 1.02Comment: | 0.90 - 1.20 INR | [facility] | | | | PT INR | | DEPARTMENT | | | | Therapeutic ranges for | | OF | | | | full | | PATHOLOGY | | | | anticoagulation: | | | | | | INR for | | | | | | Venous | | | | | | Thromboembolism | | | | | | | | | | | | (2.0-3.0)INR | | | | | | INR for most | | | | | | patients with mech. | | | | | | valves (2.5-3.5)I | | | | | | NR | | | | + + + + + + + + | Specimen | + + | | + + + + + + + | Performing | Address | City/State/Zipcode | Phone Number | | Organization | | | | + + + + + | [facility] DEPARTMENT OF | [address] | [place] [address] | | | PATHOLOGY | [address] | | | + + + + + | [facility] | [address] | [place] [address] | | | PATHOLOGY | [address] | | | + + + + + PHOSPHORUS, PLASMA (02/09/2006 11:38 PM PDT) + +-------+ + + + | Component | Value | Ref Range | Performed | Pathologist | | | | | At | Signature | + +-------+ + + + | PHOSPHORUS, | 2.8 | 2.4 - 4.7 mg/dL | [facility] | | | PLASMA | | | DEPARTMENT | | | (LAB) | | | OF | | | | | | PATHOLOGY | | + +-------+ + + + + + | Specimen | + + | | + + + + + + + | Performing | Address | City/State/Zipcode | Phone Number | | Organization | | | | + + + + + | [facility] DEPARTMENT OF | [address] | [place] [address] | | | PATHOLOGY | [address] | | | + + + + + | [facility] DEPARTMENT | [address] | [place] [address] | | | PATHOLOGY | [address] | | | + + + + + MAGNESIUM, PLASMA (02/09/2006 11:38 PM PDT) + +---------+ + + + | Component | Value | Ref Range | Performed | Pathologist | | | | | At | Signature | + +---------+ + + + | MAGNESIUM,P | 1.5 (L) | 1.8 - 2.5 mg/dL | [facility] | | | LASMA | | | DEPARTMENT | | | | | | OF | | | | | | PATHOLOGY | | + +---------+ + + + + + | Specimen | + + | | + + + + + + + | Performing | Address | City/State/Zipcode | Phone Number | | Organization | | | | + + + + + | [facility] DEPARTMENT OF | [address] | [place] [address] | | | PATHOLOGY | [address] | | | + + + + + | [facility] | [facility] | [place] [address] | | | PATHOLOGY | [address] | | | + + + + + CALCIUM, IONIZED, WHOLE BLOOD (02/09/2006 11:38 PM PDT) + + + + + + | Component | Value | Ref Range | Performed | Pathologist | | | | | At | Signature | + + + + + + | SORIN ICA, | 1.00 (L) | 1.14 - 1.32 | [facility] | | | WHOLE BLD | | mmol/L | DEPARTMENT | | | | | | OF | | | | | | PATHOLOGY | | + + + + + + | PH, WHOLE | 7.32 | | [facility] | | | BLOOD | | | DEPARTMENT | | | | | | OF | | | | | | PATHOLOGY | | + + + + + + | CALC ICA, | 0.96 (L) | 1.14 - 1.28 | [facility] | | | WHOLE BLD | | mmol/L | DEPARTMENT | | | | | | OF | | | | | | PATHOLOGY | | + + + + + + + + | Specimen | + + | | + + + + + | Narrative | Performed At | + + + | Ionized Calcium, Whole Blood | [facility] | | | DEPARTMENT OF | | | PATHOLOGY | + + + + + + + + | Performing | Address | City/State/Zipcode | Phone Number | | Organization | | | | + + + + + | [facility] DEPARTMENT OF | [address] | [place] [address] | | | PATHOLOGY | [address] | | | + + + + + | [facility]MENT OF | [address] | [place] [address] | | | PATHOLOGY | [address] | | | + + + + + BLOOD GASES, ARTERIAL (02/09/2006 11:38 PM PDT) + + + + + + | Component | Value | Ref Range | Performed | Pathologist | | | | | At | Signature | + + + + + + | PAT TEMP | 37.9 | Degree C | [facility] | | | ARTERIAL | | | DEPARTMENT | | | | | | OF | | | | | | PATHOLOGY | | + + + + + + | FIO2 | .50 | | [facility] | | | ARTERIAL | | | DEPARTMENT | | | | | | OF | | | | | | PATHOLOGY | | + + + + + + | PH ARTERIAL | 7.32 (L) | 7.37 - 7.44 | [facility] | | | | | | DEPARTMENT | | | | | | OF | | | | | | PATHOLOGY | | + + + + + + | PCO2 | 39 | 32 - 43 mmHg | [facility] | | | ARTERIAL | | | DEPARTMENT | | | | | | OF | | | | | | PATHOLOGY | | + + + + + + | PO2 | 91 | 72 - 104 mmHg | [facility] | | | ARTERIAL | | | DEPARTMENT | | | | | | OF | | | | | | PATHOLOGY | | + + + + + + | BASE EXCESS | -6.1 | | [facility] | | | ARTERIAL | | | DEPARTMENT | | | | | | OF | | | | | | PATHOLOGY | | + + + + + + | HCO3 | 19 (L) | 21 - 27 mmol/L | [facility] | | | ARTERIAL | | | DEPARTMENT | | | | | | OF | | | | | | PATHOLOGY | | + + + + + + | TOTAL CO2 | 20 (L) | 22 - 28 mmol/L | [facility] | | | ARTERIAL | | | DEPARTMENT | | | | | | OF | | | | | | PATHOLOGY | | + + + + + + | O2 SAT, | 96.8 | 92.0 - 98.0 % | [facility] | | | ARTERIAL | | | DEPARTMENT | | | | | | OF | | | | | | PATHOLOGY | | + + + + + + + + | Specimen | + + | | + + + + + | Narrative | Performed At | + + + | Arterial Blood Gas | [facility] | | | DEPARTMENT OF | | | PATHOLOGY | + + + + + + + + | Performing | Address | City/State/Zipcode | Phone Number | | Organization | | | | + + + + + | [facility] DEPARTMENT OF | [address] | [place] [address] | | | PATHOLOGY | [address] | | | + + + + + | [facility] | [address] | [place] [address] | | | PATHOLOGY | [address] | | | + + + + + CT HEAD WO CONTRAST (02/09/2006 9:26 PM PDT) + + + + + + | Component | Value | Ref Range | Performed | Pathologist | | | | | At | Signature | + + + + + + | CT HEAD WO | Radiologist 1: ROMERO, | | | | | CONTRAST | Nabor DANG-Radiologist | | | | | | 2: CRYSTAL FRANK M.D. | | | | | | EXAM: Noncontrast CT | | | | | | brain COMPARISON: None | | | | | | HISTORY: Trauma | | | | | | TECHNIQUE: 6 mm | | | | | | noncontrast axial CT | | | | | | images of the brain | | | | | | reviewedin brain and | | | | | | bone windows FINDINGS: | | | | | | No intra or extraaxial | | | | | | abnormality is seen. In | | | | | | particular, thereis no | | | | | | evidence of contusion or | | | | | | intra or extraaxial | | | | | | hemorrhage.Normal | | | | | | ventricular size, basal | | | | | | cisterns and cortical | | | | | | sulci. Noevidence of | | | | | | fracture. There is | | | | | | right parietal soft | | | | | | tissueswelling. | | | | | | IMPRESSION: No acute | | | | | | intracranial | | | | | | abnormality. | | | | | | | | | | | | | | | | + + + + + + + + | Specimen | + + | | + + + +---------+ + + | Performing | Address | City/State/Zipcode | Phone Number | | Organization | | | | + +---------+ + + | [facility] DEPARTMENT OF | | | | | RADIOLOGY | | | | + +---------+ + + OS-QGES-KJEA-DONT PROCESS (02/09/2006 9:16 PM PDT) + + + + + + | Component | Value | Ref Range | Performed | Pathologist | | | | | At | Signature | + + + + + + | BB TUBE,HLD | SPEC REC'D W ALICIAQ | | [facility] | | | MOON PRO | VOLUME/LABEL TO PROCESS | | DEPARTMENT | | | | | | OF | | | | | | PATHOLOGY | | + + + + + + + + | Specimen | + + | | + + + + + + + | Performing | Address | City/State/Zipcode | Phone Number | | Organization | | | | + + + + + | [facility] DEPARTMENT OF | [address] | [place] [address] | | | PATHOLOGY | [address] | | | + + + + + | [facility] DE[facility]MENT OF | [address] | [place] [address] | | | PATHOLOGY | [address] | | | + + + + + BASIC METABOLIC SET (02/09/2006 8:54 PM PDT) + +---------+ + + + | Component | Value | Ref Range | Performed | Pathologist | | | | | At | Signature | + +---------+ + + + | GLUCOSE, | 125 (H) | 65 - 110 mg/dL | [facility] | | | PLASMA | | | DEPARTMENT | | | (LAB) | | | OF | | | | | | PATHOLOGY | | + +---------+ + + + | BUN, PLASMA | 5 (L) | 6 - 20 mg/dL | [facility] | | | (LAB) | | | DEPARTMENT | | | | | | OF | | | | | | PATHOLOGY | | + +---------+ + + + | CREATININE | 0.7 | 0.7 - 1.3 mg/dL | [facility] | | | PLASMA | | | DEPARTMENT | | | (LAB) | | | OF | | | | | | PATHOLOGY | | + +---------+ + + + | SODIUM, | 139 | 136 - 145 | [facility] | | | PLASMA | | mmol/L | DEPARTMENT | | | (LAB) | | | OF | | | | | | PATHOLOGY | | + +---------+ + + + | POTASSIUM, | 3.2 (L) | 3.5 - 5.1 | [facility] | | | PLASMA | | mmol/L | DEPARTMENT | | | (LAB) | | | OF | | | | | | PATHOLOGY | | + +---------+ + + + | CHLORIDE, | 104 | 98 - 107 mmol/L | [facility] | | | PLASMA | | | DEPARTMENT | | | (LAB) | | | OF | | | | | | PATHOLOGY | | + +---------+ + + + | TOTAL CO2, | 20 (L) | 23 - 29 mmol/L | [facility] | | | PLASMA | | | DEPARTMENT | | | (LAB) | | | OF | | | | | | PATHOLOGY | | + +---------+ + + + | CALCIUM, | 6.9 (*) | 8.5 - 10.5 | [facility] | | | PLASMA | | mg/dL | DEPARTMENT | | | (LAB) | | | OF | | | | | | PATHOLOGY | | + +---------+ + + + + + | Specimen | + + | | + + + + + | Narrative | Performed At | + + + | Calcium Checked and phoned. Not Readback. | [facility] | | | DEPARTMENT OF | | | PATHOLOGY | + + + + + + + + | Performing | Address | City/State/Zipcode | Phone Number | | Organization | | | | + + + + + | [facility] | [address] | [place] [address] | | | PATHOLOGY | [address] | | | + + + + + | [facility] | [address] | [place] [address] | | | PATHOLOGY | [address] | | | + + + + + CK (02/09/2006 8:54 PM PDT) + + + + + + | Component | Value | Ref Range | Performed | Pathologist | | | | | At | Signature | + + + + + + | CK | 1190 (H) | 49 - 397 U/L | [facility] | | | | | | DEPARTMENT | | | | | | OF | | | | | | PATHOLOGY | | + + + + + + + + | Specimen | + + | | + + + + + | Narrative | Performed At | + + + | Calcium Checked and phoned. Not Readback. | [facility] | | | DEPARTMENT OF | | | PATHOLOGY | + + + + + + + + | Performing | Address | City/State/Zipcode | Phone Number | | Organization | | | | + + + + + | [facility] | [address] | [place] [address] | | | PATHOLOGY | [address] | | | + + + + + | [facility] | [address] | [place] [address] | | | PATHOLOGY | [address] | | | + + + + + COAGULOPATHY PANEL (02/09/2006 8:54 PM PDT) + + + + + + | Component | Value | Ref Range | Performed | Pathologist | | | | | At | Signature | + + + + + + | INR | 1.02Comment: | 0.90 - 1.20 INR | [facility] | | | | PT INR | | DEPARTMENT | | | | Therapeutic ranges for | | OF | | | | full | | PATHOLOGY | | | | anticoagulation: | | | | | | INR for | | | | | | Venous | | | | | | Thromboembolism | | | | | | | | | | | | (2.0-3.0)INR | | | | | | INR for most | | | | | | patients with mech. | | | | | | valves (2.5-3.5)I | | | | | | NR | | | | + + + + + + | APTT | 23.7 (L)Comment: | 26.0 - 36.0 | [facility] | | | | APTT | seconds | DEPARTMENT | | | | Therapeutic | | OF | | | | Range | | PATHOLOGY | | | | | | | | | | (75-120)sec | | | | | | Hepa | | | | | | rin levels of 0.35-0.7 | | | | | | U/mL | | | | + + + + + + | FIBRINOGEN | 304 | 200 - 450 mg/dL | [facility] | | | LEVEL | | | DEPARTMENT | | | | | | OF | | | | | | PATHOLOGY | | + + + + + + + + | Specimen | + + | | + + + + + + + | Performing | Address | City/State/Zipcode | Phone Number | | Organization | | | | + + + + + | [facility]MENT [facility] | [address] | [place] [address] | | | PATHOLOGY | [address] | | | + + + + + | [facility] | [address] | [place] [address] | | | PATHOLOGY | [address] | | | + + + + + CBC ONLY WITH PLATELET (02/09/2006 8:54 PM PDT) + + + + + + | Component | Value | Ref Range | Performed | Pathologist | | | | | At | Signature | + + + + + + | WHITE CELL | 15.0 (H) | 4.4 - 11.0 K/cu | [facility] | | | COUNT | | mm | DEPARTMENT | | | | | | OF | | | | | | PATHOLOGY | | + + + + + + | RED CELL | 4.71 | 4.50 - 5.90 | [facility] | | | COUNT | | M/cu mm | DEPARTMENT | | | | | | OF | | | | | | PATHOLOGY | | + + + + + + | HEMOGLOBIN | 15.5 | 13.5 - 17.5 | [facility] | | | | | g/dL | DEPARTMENT | | | | | | OF | | | | | | PATHOLOGY | | + + + + + + | HEMATOCRIT | 44.4 | 41.0 - 53.0 % | [facility] | | | | | | DEPARTMENT | | | | | | OF | | | | | | PATHOLOGY | | + + + + + + | MCV | 94.1 | 80.0 - 96.0 fL | [facility] | | | | | | DEPARTMENT | | | | | | OF | | | | | | PATHOLOGY | | + + + + + + | MCHC | 35.0 | 33.4 - 35.5 | [facility] | | | | | g/dL | DEPARTMENT | | | | | | OF | | | | | | PATHOLOGY | | + + + + + + | RDW | 13.3 | 11.5 - 15.0 % | [facility] | | | | | | DEPARTMENT | | | | | | OF | | | | | | PATHOLOGY | | + + + + + + | PLATELET | 258 | 150 - 400 K/cu | [facility] | | | COUNT | | mm | DEPARTMENT | | | | | | OF | | | | | | PATHOLOGY | | + + + + + + + + | Specimen | + + | | + + + + + + + | Performing | Address | City/State/Zipcode | Phone Number | | Organization | | | | + + + + + | [facility] | [address] | [place] [address] | | | PATHOLOGY | [address] | | | + + + + + | [facility] | [address] | [place] [address] | | | PATHOLOGY | [address] | | | + + + + + BLOOD GASES, ARTERIAL (02/09/2006 8:54 PM PDT) + + + + + + | Component | Value | Ref Range | Performed | Pathologist | | | | | At | Signature | + + + + + + | PAT TEMP | 37 | Degree C | [facility] | | | ARTERIAL | | | DEPARTMENT | | | | | | OF | | | | | | PATHOLOGY | | + + + + + + | FIO2 | 100 | | [facility] | | | ARTERIAL | | | DEPARTMENT | | | | | | OF | | | | | | PATHOLOGY | | + + + + + + | PH ARTERIAL | 7.15 (*) | 7.37 - 7.44 | [facility] | | | | | | DEPARTMENT | | | | | | OF | | | | | | PATHOLOGY | | + + + + + + | PCO2 | 50 (H) | 32 - 43 mmHg | [facility] | | | ARTERIAL | | | DEPARTMENT | | | | | | OF | | | | | | PATHOLOGY | | + + + + + + | PO2 | 245 (H) | 72 - 104 mmHg | [facility] | | | ARTERIAL | | | DEPARTMENT | | | | | | OF | | | | | | PATHOLOGY | | + + + + + + | BASE EXCESS | -12.5 | | [facility] | | | ARTERIAL | | | DEPARTMENT | | | | | | OF | | | | | | PATHOLOGY | | + + + + + + | HCO3 | 17 (L) | 21 - 27 mmol/L | [facility] | | | ARTERIAL | | | DEPARTMENT | | | | | | OF | | | | | | PATHOLOGY | | + + + + + + | TOTAL CO2 | 18 (L) | 22 - 28 mmol/L | [facility] | | | ARTERIAL | | | DEPARTMENT | | | | | | OF | | | | | | PATHOLOGY | | + + + + + + | O2 SAT, | 98.5 (H) | 92.0 - 98.0 % | [facility] | | | ARTERIAL | | | DEPARTMENT | | | | | | OF | | | | | | PATHOLOGY | | + + + + + + + + | Specimen | + + | | + + + + + | Narrative | Performed At | + + + | Arterial Blood Gas All ABG results Phoned Possible | [facility] | | contaminated specimen. | DEPARTMENT OF | | | PATHOLOGY | + + + + + + + + | Performing | Address | City/State/Zipcode | Phone Number | | Organization | | | | + + + + + | [facility] DEPARTMENT OF | [address] | [place] [address] | | | PATHOLOGY | [address] | | | + + + + + | [facility] DEPARTMENT OF | [address] | [place] [address] | | | PATHOLOGY | [address] | | | + + + + + ALCOHOL SCRN, SERUM (02/09/2006 8:54 PM PDT) + +-------+ + + + | Component | Value | Ref Range | Performed | Pathologist | | | | | At | Signature | + +-------+ + + + | ETHANOL | 190 | mg/dL | [facility] | | | (ALCOHOL) | | | DEPARTMENT | | | | | | OF | | | | | | PATHOLOGY | | + +-------+ + + + + + | Specimen | + + | | + + + + + + + | Performing | Address | City/State/Zipcode | Phone Number | | Organization | | | | + + + + + | [facility] | [address] | [place] [address] | | | PATHOLOGY | [address] | | | + + + + + | [facility] | [address] | [place] [address] | | | PATHOLOGY | [address] | | | + + + + + documented in this encounter Visit Diagnoses Not on filedocumented in this encounter"
--- OUTSIDE RECORDS SUMMARY | ~2019-01-28 | XMS | Encounter Summary ---
Demographics + + + | Address | [address] | | | [place] [address] | + + + | Home Phone | | + + + | Preferred Language | Unknown | + + + | Marital Status | | + + + | Mandaen Affiliation | NON | + + + | Race | White | + + + | Ethnic Group | Not or | + + + Author + + + | Author | [facility] | + + + | Organization | [facility] | + + + | Address | Unknown | + + + | Phone | Unavailable | + + + Support + + + + + | Name | Relationship | Address | Phone | + + + + + | Yanni Antoine | ECON | [address] | | | | | [place], [place] | | | | | [address] | | + + + + + Care Team Providers + +------+ + | Care Transmitter Supervisor Name | Role | Phone | + +------+ + PCP | Unavailable | + +------+ + Encounter Details +--------+ + + + + | Date | Type | Department | Care Team | Description | +--------+ + + + + | 02/09/ | Results | Emergency Medicine | Dorian Gya MD | | | 2005 | Only | [address] | [address] | | | | | [facility] | [facility] | | | | | [place], [place] | [place], [place] | | | | | [address] | [address] | | | | | | [phone] | | | | | | | [...] + +--------+ + + + | CT RECON TATYANA, | Routin | 02/09/2006 | | Results for this | | CORONL | e | 9:25 PM | | procedure are in the | | | | PDT | | results section. | + +--------+ + + + | CT RECON SAGITL, | Routin | 02/09/2006 | | Results for this | | CORONL | e | 9:25 PM | | procedure are in the | | | | PDT | | results section. | + +--------+ + + + | CT SPINE LUMBAR WO | Routin | 02/09/2006 | | Results for this | | CONTRAST | e | 9:25 PM | | procedure are in the | | | | PDT | | results section. | + +--------+ + + + | CT SPINE CERVICAL WO | Routin | 02/09/2006 | | Results for this | | CONTRAST | e | 9:25 PM | | procedure are in the | | | | PDT | | results section. | + +--------+ + + + | CT RECON SAGITL, | Routin | 02/09/2006 | | Results for this | | CORONL | e | 9:24 PM | | procedure are in the | | | | PDT | | results section. | + +--------+ + + + | CT SPINE THORACIC WO | Routin | 02/09/2006 | | Results for this | | CONTRAST | e | 9:24 PM | | procedure are in the | | | | PDT | | results section. | + +--------+ + + + documented in this encounter Results CT JESSICA GUTHRIE (02/09/2006 9:25 PM PDT) + + + + + + | Component | Value | Ref Range | Performed | Pathologist | | | | | At | Signature | + + + + + + | CT RECON | Radiologist 1: ROMERO, | | | | | TATYANA | Nabor DANGEXAM: CT scan | | | | | CORONL [place] | cervical spine with | | | | | 3D | sagittal and coronal | | | | | | reformattedimages | | | | | | HISTORY: Trauma | | | | | | TECHNIQUE: Helically | | | | | | acquired images are | | | | | | reviewed at 1 mm | | | | | | axialintervals through | | | | | | the cervical spine down | | | | | | to level of T2.Sagittal | | | | | | and coronal reformatted | | | | | | images reviewed as well. | | | | | | COMPARISON: None. | | | | | | FINDINGS: The overall | | | | | | alignment is | | | | | | normal. There is an | | | | | | obliquefracture through | | | | | | the spinous process of | | | | | | C7 extending into | | | | | | theinferior lamina and | | | | | | right inferior facet of | | | | | | C7. In addition thereis | | | | | | an oblique sagittally | | | | | | oriented fracture | | | | | | lucency involving | | | | | | theleft superior facet | | | | | | of C7. No significant | | | | | | degenerative change. | | | | | | Endotracheal and | | | | | | nasogastric tubes are | | | | | | seen in | | | | | | situ. Subcutaneousair | | | | | | is seen at the base of | | | | | | the neck. | | | | | | IMPRESSION:Fractures of | | | | | | C7 involving the spinous | | | | | | process, lamina, | | | | | | inferiorright facet and | | | | | | superior left facet. | | | | | | Addendum # 1 by Espinoza | | | | | | Nabor Kunz on | | | | | | 12-Feb-2006 09:55 There | | | | | | is no change to this | | | | | | report. The addendum is | | | | | | to administrativelylink | | | | | | the associated report. | | | | + + + + + + + + | Specimen | + + | | + + + +---------+ + + | Performing | Address | City/State/Zipcode | Phone Number | | Organization | | | | + +---------+ + + | [facility] DEPARTMENT OF | | | | | RADIOLOGY | | | | + +---------+ + + CT JESSICA GUTHRIE (02/09/2006 9:25 PM PDT) + + + + + + | Component | Value | Ref Range | Performed | Pathologist | | | | | At | Signature | + + + + + + | CT RECON | Radiologist 1: ROMERO, | | | | | SAGITL, | Nabor DANG EXAM: | | | | | CORONL [place] | Noncontrast CT of the | | | | | 3D | thoracolumbar spine with | | | | | | multiplanarreformations | | | | | | COMPARISON: None. | | | | | | HISTORY: Exclude injury. | | | | | | TECHNIQUE: Helically | | | | | | acquired [address] | | | | | | images through | | | | | | thethoraco lumbar spine | | | | | | with sagittal and | | | | | | coronal reformations. | | | | | | FINDINGS: Thoracic | | | | | | spine: There is normal | | | | | | alignment. There is | | | | | | noevidence of fracture | | | | | | within the thoracic | | | | | | spine. There is a | | | | | | largeright-sided pleural | | | | | | fluid collection in | | | | | | bilateral | | | | | | pulmonarycontusion/atele | | | | | | ctasis. In addition | | | | | | there is a | | | | | | right-sidedpneumothorax | | | | | | and right intercostal | | | | | | catheter in situ. Lumbar | | | | | | spine: There is normal | | | | | | alignment and no | | | | | | evidence offracture. | | | | | | IMPRESSION: No evidence | | | | | | of fracture in the | | | | | | thoracolumbar spine. | | | | | | Addendum # 1 by Espinoza | | | | | | Nabor Kunz on | | | | | | 12-Feb-2006 09:56 There | | | | | | is no change to this | | | | | | report. The addendum is | | | | | | to administrativelylink | | | | | | the associated report. | | | | + + + + + + + + | Specimen | + + | | + + + +---------+ + + | Performing | Address | City/State/Zipcode | Phone Number | | Organization | | | | + +---------+ + + | [facility] DEPARTMENT OF | | | | | RADIOLOGY | | | | + +---------+ + + CT SPINE LUMBAR WO CONTRASTR (02/09/2006 9:25 PM PDT) + + + + + + | Component | Value | Ref Range | Performed | Pathologist | | | | | At | Signature | + + + + + + | CT LUMBAR | Radiologist 1: ROMERO, | | | | | SPINE WO | Nabor DANG EXAM: | | | | | CONTRAST | Noncontrast CT of the | | | | | | thoracolumbar spine with | | | | | | multiplanarreformations | | | | | | COMPARISON: None. | | | | | | HISTORY: Exclude injury. | | | | | | TECHNIQUE: Helically | | | | | | acquired [address] | | | | | | images through | | | | | | thethoraco lumbar spine | | | | | | with sagittal and | | | | | | coronal reformations. | | | | | | FINDINGS: Thoracic | | | | | | spine: There is normal | | | | | | alignment. There is | | | | | | noevidence of fracture | | | | | | within the thoracic | | | | | | spine. There is a | | | | | | largeright-sided pleural | | | | | | fluid collection in | | | | | | bilateral | | | | | | pulmonarycontusion/atele | | | | | | ctasis. In addition | | | | | | there is a | | | | | | right-sidedpneumothorax | | | | | | and right intercostal | | | | | | catheter in situ. Lumbar | | | | | | spine: There is normal | | | | | | alignment and no | | | | | | evidence offracture. | | | | | | IMPRESSION: No evidence | | | | | | of fracture in the | | | | | | thoracolumbar spine. | | | | | | Addendum # 1 by Espinoza | | | | | | Nabor Kunz on | | | | | | 12-Feb-2006 09:56 There | | | | | | is no change to this | | | | | | report. The addendum is | | | | | | to administrativelylink | | | | | | the associated report. | | | | + + + + + + + + | Specimen | + + | | + + + +---------+ + + | Performing | Address | City/State/Zipcode | Phone Number | | Organization | | | | + +---------+ + + | [facility] DEPARTMENT OF | | | | | RADIOLOGY | | | | + +---------+ + + CT SPINE CERVICAL WO CONTRAST (02/09/2006 9:25 PM PDT) + + + + + + | Component | Value | Ref Range | Performed | Pathologist | | | | | At | Signature | + + + + + + | CT CERVICAL | Radiologist 1: ROMERO, | | | | | SPINE WO | Nabor DANGEXAM: CT scan | | | | | CONTRAST | cervical spine with | | | | | | sagittal and coronal | | | | | | reformattedimages | | | | | | HISTORY: Trauma | | | | | | TECHNIQUE: Helically | | | | | | acquired images are | | | | | | reviewed at 1 mm | | | | | | axialintervals through | | | | | | the cervical spine down | | | | | | to level of T2.Sagittal | | | | | | and coronal reformatted | | | | | | images reviewed as well. | | | | | | COMPARISON: None. | | | | | | FINDINGS: The overall | | | | | | alignment is | | | | | | normal. There is an | | | | | | obliquefracture through | | | | | | the spinous process of | | | | | | C7 extending into | | | | | | theinferior lamina and | | | | | | right inferior facet of | | | | | | C7. In addition thereis | | | | | | an oblique sagittally | | | | | | oriented fracture | | | | | | lucency involving | | | | | | theleft superior facet | | | | | | of C7. No significant | | | | | | degenerative change. | | | | | | Endotracheal and | | | | | | nasogastric tubes are | | | | | | seen in | | | | | | situ. Subcutaneousair | | | | | | is seen at the base of | | | | | | the neck. | | | | | | IMPRESSION:Fractures of | | | | | | C7 involving the spinous | | | | | | process, lamina, | | | | | | inferiorright facet and | | | | | | superior left facet. | | | | | | Addendum # 1 by Espinoza | | | | | | Nabor Kunz on | | | | | | 12-Feb-2006 09:55 There | | | | | | is no change to this | | | | | | report. The addendum is | | | | | | to administrativelylink | | | | | | the associated report. | | | | + + + [...] | | + +---------+ + + CT RECON SAGITL, CORONL (02/09/2006 9:24 PM PDT) + + + + + + | Component | Value | Ref Range | Performed | Pathologist | | | | | At | Signature | + + + + + + | CT RECON | Radiologist 1: ROMERO, | | | | | Juliet JOE M.D. EXAM: | | | | | CORONL [place] | Noncontrast CT of the | | | | | 3D | thoracolumbar spine with | | | | | | multiplanarreformations | | | | | | COMPARISON: None. | | | | | | HISTORY: Exclude injury. | | | | | | TECHNIQUE: Helically | | | | | | acquired [address] | | | | | | images through | | | | | | thethoraco lumbar spine | | | | | | with sagittal and | | | | | | coronal reformations. | | | | | | FINDINGS: Thoracic | | | | | | spine: There is normal | | | | | | alignment. There is | | | | | | noevidence of fracture | | | | | | within the thoracic | | | | | | spine. There is a | | | | | | largeright-sided pleural | | | | | | fluid collection in | | | | | | bilateral | | | | | | pulmonarycontusion/atele | | | | | | ctasis. In addition | | | | | | there is a | | | | | | right-sidedpneumothorax | | | | | | and right intercostal | | | | | | catheter in situ. Lumbar | | | | | | spine: There is normal | | | | | | alignment and no | | | | | | evidence offracture. | | | | | | IMPRESSION: No evidence | | | | | | of fracture in the | | | | | | thoracolumbar spine. | | | | | | Addendum # 1 by Espinoza | | | | | | Nabor Kunz on | | | | | | 12-Feb-2006 09:56 There | | | | | | is no change to this | | | | | | report. The addendum is | | | | | | to administrativelylink | | | | | | the associated report. | | | | + + + + + + + + | Specimen | + + | | + + + +---------+ + + | Performing | Address | City/State/Zipcode | Phone Number | | Organization | | | | + +---------+ + + | [facility] DEPARTMENT OF | | | | | RADIOLOGY | | | | + +---------+ + + CT SPINE THORACIC WO CONTRAST (02/09/2006 9:24 PM PDT) + + + + + + | Component | Value | Ref Range | Performed | Pathologist | | | | | At | Signature | + + + + + + | CT THORACIC | Radiologist 1: ROMERO, | | | | | SPINE WO | Nabor DANG EXAM: | | | | | CONTRAST | Noncontrast CT of the | | | | | | thoracolumbar spine with | | | | | | multiplanarreformations | | | | | | COMPARISON: None. | | | | | | HISTORY: Exclude injury. | | | | | | TECHNIQUE: Helically | | | | | | acquired [address] | | | | | | images through | | | | | | thethoraco lumbar spine | | | | | | with sagittal and | | | | | | coronal reformations. | | | | | | FINDINGS: Thoracic | | | | | | spine: There is normal | | | | | | alignment. There is | | | | | | noevidence of fracture | | | | | | within the thoracic | | | | | | spine. There is a | | | | | | largeright-sided pleural | | | | | | fluid collection in | | | | | | bilateral | | | | | | pulmonarycontusion/atele | | | | | | ctasis. In addition | | | | | | there is a | | | | | | right-sidedpneumothorax | | | | | | and right intercostal | | | | | | catheter in situ. Lumbar | | | | | | spine: There is normal | | | | | | alignment and no | | | | | | evidence offracture. | | | | | | IMPRESSION: No evidence | | | | | | of fracture in the | | | | | | thoracolumbar spine. | | | | | | Addendum # 1 by Espinoza | | | | | | Nabor Kunz on | | | | | | 12-Feb-2006 09:56 There | | | | | | is no change to this | | | | | | report. The addendum is | | | | | | to administrativelylink | | | | | | the associated report. | | | | + + + + + + + + | Specimen | + + | | + + + +---------+ + + | Performing | Address | City/State/Zipcode | Phone Number | | Organization | | | | + +---------+ + + | [facility] DEPARTMENT OF | | | | | RADIOLOGY | | | | + +---------+ + + documented in this encounter Visit Diagnoses Not on filedocumented in this encounter"
--- OUTSIDE RECORDS SUMMARY | ~2019-01-28 | XMS | Encounter Summary ---
Demographics + + + | Address | [address] | | | [place] [address] | + + + | Home Phone [...] [place], [place] | | | | | [address] | | + + + + + Care Team Providers + +------+ + | Care Forensic Manager Name | Role | Phone | + +------+ + PCP | Unavailable | + +------+ + Encounter Details +--------+ + + + + | Date | Type | Department | Care Team | Description | +--------+ + + + + | 02/13/ | Procedure - | | Record, Operation [...] + + | OPERATION RECORD | | 02/13/2006 | | Results for this | | | | | | procedure are in the | | | | | | results section. | + +--------+ + + + documented in this encounter Results OPERATION RECORD (02/13/2006) + + | Transcriptions | + + | Interface, Manager Payer In - 03/16/2006 2:06 AM PDT | | [id number] | | [id number] ASHLEY Peck [id number] | | | | Date: 02/13/2006 | | | | Attending Surgeon: Thai De La Garza M.D., [employer]ro[employer]. | | | | Internet Marketing Specialist(s): Jazzmine Lozano MD | | | | Preoperative Diagnosis(es): | | Diffuse axonal brain injury with coma. | | | | Postoperative Diagnosis(es): | | Diffuse axonal brain injury with coma. | | | | Procedures Performed: | | Percutaneous endoscopic gastrostomy. | | | | Anesthesia: | | | | Complications: | | | | Specimens: | | | | Indications: | | This patient had a severe brain injury, was unable to swallow. He needs | | access to his stomach for feeding. I think a percutaneous endoscopic | | gastrostomy was indicated. | | | | Procedure: | | The patient's abdomen was prepped and draped in a sterile fashion. An | | endoscope was passed through his mouth into his stomach which was inflated. | | The duodenum was observed. No evidence of duodenal ulcers. We could | | identify the glow of the light through his abdominal wall. A needle was | | inserted into his stomach. Guidewire was passed through the needle, pulled | | up to the mouth. The percutaneous gastrostomy tube was pulled into his | | stomach. The scope was reintroduced and confirmed there was no bleeding | | around the percutaneous endoscopic gastrostomy tube. The tube was secured | | in place. I was present for the entire procedure. | | | | | | | | Thai De La Garza M.D., F.A.C.S. | | lumber bearer @ patient services rep Service | | | | SHARA / HS | | [id number] / [id number] / [id number] / | | | | | | E: 03/11/2006 ajm | | | | | | Electronically signed by Thai De La Garza 03-15-2006 05:35:06 PM | + + documented in this encounter Visit Diagnoses Not on filedocumented in this encounter"
--- OUTSIDE RECORDS SUMMARY | ~2019-01-28 | XMS | Encounter Summary ---
Demographics + + + | Address | [address] | | | [place] [address] | + + + | Home Phone [...] [place], [place] | | | | | [address] | | + + + + + Care Team Providers + +------+ + | Care Act English Tutor Name | Role | Phone | + +------+ + PCP | Unavailable | + +------+ + Encounter Details +--------+ + + + + | Date | Type | Department | Care Team | Description | +--------+ + + + + | 03/16/ | Respiratory | | Other, Faculty | | | 2005 | Therapy | | [phone] | | +--------+ + + + + [...] + + + | [facility] | [address] | [place] | | | DIAGNOSTICS - | [address] | [address] | | | PULMONARY FUNCTION | | | | + + + + + documented in this encounter Visit Diagnoses Not on filedocumented in this encounter"
--- OUTSIDE RECORDS SUMMARY | ~2019-01-28 | XMS | Encounter Summary ---
Demographics + + + | Address | [address] | | | [place] [address] | + + + | Home Phone | | + + + | Preferred Language | Unknown | + + + | Marital Status | | + + + | Nondenominational Affiliation | NON | + + + [...] [place], [place] | | | | | [address] | | + + + + + Care Team Providers + +------+ + | Care Taker Off Drying Kiln Name | Role | Phone | + +------+ + PCP | Unavailable | + +------+ + Encounter Details +--------+ + + + + | Date | Type | Department | Care Team | Description | +--------+ + + + + | 02/22/ | Respiratory | | Other, Faculty | | | 2005 | Therapy | | [phone] | | +--------+ + + + + [...] [facility] | [address] | [place], [place] | | | DIAGNOSTICS - | [address] | [address] | | | PULMONARY FUNCTION | | | | + + + + + documented in this encounter Visit Diagnoses Not on filedocumented in this encounter"
--- OUTSIDE RECORDS SUMMARY | ~2019-01-28 | XMS | Encounter Summary ---
Demographics + + + | Address | [address] | | | [place] [address] | + + + | Home Phone | | + + + | Preferred Language | Unknown | + + + | Marital Status | | + + + | Taoist Affiliation | NON | + + + [...] [place], [place] | | | | | [address] | | + + + + + Care Team Providers + +------+ + | Care Agricultural Education Professor Name | Role | Phone | + +------+ + PCP | Unavailable | + +------+ + Encounter Details +--------+ + + + + | Date | Type | Department | Care Team | Description | +--------+ + + + + | 03/07/ | Respiratory | | Other, Faculty | | | 2005 | Therapy | | [phone] | | +--------+ + + + + [...] | ADULT AND SHRINERS | Routin | 03/07/2006 | | Results for this | | TREATMENTS | e | 5:10 AM | | procedure are in the | | | | PDT | | results section. | + +--------+ + + + documented in this encounter Results ADULT AND SHRINERS TREATMENTS (03/07/2006 5:10 AM PDT) + + + + [...] | | | | | SUCTIONED .[address] | | | | | | AIRW[facility] . REQUIRES | | | | | [...] | DIAGNOSTICS - | [address] | [address] | | | PULMONARY FUNCTION | | | | + + + + + documented in this encounter Visit Diagnoses Not on filedocumented in this encounter"
--- OUTSIDE RECORDS SUMMARY | ~2019-01-28 | XMS | Encounter Summary ---
Demographics + + + | Address | [address] | | | [place] [address] | + + + | Home Phone | | + + + | Preferred Language | Unknown | + + + | Marital Status | | + + + | Sikh Affiliation | NON | + + + [...] [place], [place] | | | | | [address] | | + + + + + Care Team Providers + +------+ + | Care Hairspring Fabrication Supervisor Name | Role | Phone | + +------+ + PCP | Unavailable | + +------+ + Encounter Details +--------+ + + + + | Date | Type | Department | Care Team | Description | +--------+ + + + + | 03/20/ | Respiratory | | Other, Faculty | | | 2005 | Therapy | | [phone] | | +--------+ + + + + [...] | | | | | Y | [facility] | | | | + + + [...] [facility] | [address] | [place], [place] | | | DIAGNOSTICS - | [address] | [address] | | | PULMONARY FUNCTION | | | | + + + + + documented in this encounter Visit Diagnoses Not on filedocumented in this encounter"
--- OUTSIDE RECORDS SUMMARY | ~2019-01-28 | XMS | Encounter Summary ---
Demographics + + + | Address | [address] | | | [place] [address] | + + + | Home Phone [...] [place], [place] | | | | | [address] | | + + + + + Care Team Providers + +------+ + | Care Planer Chain Offbearer Name | Role | Phone | + +------+ + PCP | Unavailable | + +------+ + Encounter Details +--------+ + + + + | Date | Type | Department | Care Team | Description | +--------+ + + + + | 03/06/ | Respiratory | | Other, Faculty | | | 2005 | Therapy | | [phone] | | +--------+ + + + + [...] | | | | | Y | ELECTRONIC EQUIPMENT REPAIRER | | | | + + + [...] [facility] | [address] | [place] | | | DIAGNOSTICS - | [address] | [address] | | | PULMONARY FUNCTION | | | | + + + + + documented in this encounter Visit Diagnoses Not on filedocumented in this encounter"
--- OUTSIDE RECORDS SUMMARY | ~2019-01-28 | XMS | Encounter Summary ---
Demographics + + + | Address | [address] | | | [place] [address] | + + + | Home Phone | | + + + | Preferred Language | Unknown | + + + | Marital Status | | + + + | Worship Affiliation | NON | + + + [...] [place] | | | | | [place], [place] | | | | | [address] | | + + + + + Care Team Providers + +------+ + | Care Pin Sorter And Bagger Name | Role | Phone | + +------+ + PCP | Unavailable | + +------+ + Encounter Details +--------+ + + + + | Date | Type | Department | Care Team | Description | +--------+ + + + + | 03/11/ | Respiratory | | Other, Faculty | | | 2005 | Therapy | | [phone] | | +--------+ + + + + [...] + + | DIAGNOSTICS | Routin | 03/11/2006 | | Results for this | | | e | 6:05 AM | | procedure are in the | | | | PDT | | results section. | + +--------+ + + + documented in this encounter Results DIAGNOSTICS (03/11/2006 6:05 AM PDT) + + + + + + | Component | Value | Ref Range | Performed | Pathologist | | | | | At | Signature | + + + + + + | [facility] | CONTINUOUS PULSE | | | | | DIAGNOSTICS | OXIMETRY IN USE. Jeannette | | | | | | MARLENE Oconnell | | | | + + + [...] [facility] | [address] | [place], [place] | | | DIAGNOSTICS - | [address] | [address] | | | PULMONARY FUNCTION | | | | + + + + + documented in this encounter Visit Diagnoses Not on filedocumented in this encounter"
--- OUTSIDE RECORDS SUMMARY | ~2019-01-28 | XMS | Encounter Summary ---
Demographics + + + | Address | [address] | | | [place] [address] | + + + | Home Phone | | + + + | Preferred Language | Unknown | + + + | Marital Status | | + + + | Pentecostalism Affiliation | NON | + + + [...] [place], [place] | | | | | [address] | | + + + + + Care Team Providers + +------+ + | Care Operations Support Analyst Name | Role | Phone | + +------+ + PCP | Unavailable | + +------+ + Encounter Details +--------+ + + + + | Date | Type | Department | Care Team | Description | +--------+ + + + + | 02/26/ | Respiratory | | Other, Faculty | | | 2005 | Therapy | | [phone] | | +--------+ + + + + [...] + | MEDICAL GAS/HUMIDITY | Routin | 02/26/2006 | | Results for this | | | e | 11:18 PM | | procedure are in the | | | | PDT | | results section. | + +--------+ + + + documented in this encounter Results MEDICAL GAS/HUMIDITY (02/26/2006 11:18 PM PDT) + + + + + + | Component | Value | Ref Range | Performed | Pathologist | | | | | At | Signature | + + + + + + | [facility] | sx pt. for large amount | | | | | GAS/HUMIDIT | of thick yellow secr. rr | | | | | Y | 18 HEATED HUMIDITY AT | | | | | | 31 % OXYGEN. Bill | | | | | | MARLENE Cuellar | | | | + + + [...] [facility] | [address] | [place], [place] | | | DIAGNOSTICS - | [address] | [address] | | | PULMONARY FUNCTION | | | | + + + + + documented in this encounter Visit Diagnoses Not on filedocumented in this encounter"
--- OUTSIDE RECORDS SUMMARY | ~2019-01-28 | XMS | Encounter Summary ---
Demographics + + + | Address | [address] | | | [place] [address] | + + + | Home Phone | | + + + | Preferred Language | Unknown | + + + | Marital Status | | + + + | Hindu Affiliation | NON | + + + [...] [place] | | | | | [place], [place] | | | | | [address] | | + + + + + Care Team Providers + +------+ + | Care Rn Child Name | Role | Phone | + +------+ + PCP | Unavailable | + +------+ + Encounter Details +--------+ + + + + | Date | Type | Department | Care Team | Description | +--------+ + + + + | 03/03/ | Respiratory | | Other, Faculty | | | 2005 | Therapy | | [phone] | | +--------+ + + + + [...] | | | | | Y | POWER PRESS SUPERVISOR | | | | + + + [...] | DIAGNOSTICS - | [address] | [address] | | | PULMONARY FUNCTION | | | | + + + + + documented in this encounter Visit Diagnoses Not on filedocumented in this encounter"
--- OUTSIDE RECORDS SUMMARY | ~2019-01-28 | XMS | Encounter Summary ---
Demographics + + + | Address | [address] | | | [place] [address] | + + + | Home Phone [...] [place], [place] | | | | | [address] | | + + + + + Care Team Providers + +------+ + | Care Supervisor Slate Splitting Name | Role | Phone | + [...] [place] | | | | | | [facility] | | | | | | [place], [place] | | | | | | [address] | | | +--------+ + + + [...] | | | Patient: MIGUEL A RAMIREZ mo9 (moKredit) Rec: [id number] Sex M Bdate: 1965 | | Date/Time Data | | Entered Into [facility] | | Anesth PostOp | | Surgery Date [id number] 02/18/06 10:10 | | Anesthesiologist CHENTE GOVEA 02/18/06 10:10 | | Resident Anesthesiolog RENITA ANDREWS 02/18/06 10:10 | | | + + documented in this encounter Visit Diagnoses Not on filedocumented in this encounter"
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
--- OUTSIDE RECORDS SUMMARY | ~2019-01-28 | XMS | Encounter Summary ---
Demographics + + + | Address | [address] | | | [place] [address] | + + + | Home Phone [...] [place], [place] | | | | | [address] | | + + + + + Care Team Providers + +------+ + | Care Tube Maker Name | Role | Phone | + +------+ + PCP | Unavailable | + +------+ + Encounter Details +--------+ + + + + | Date | Type | Department | Care Team | Description | +--------+ + + + + | 03/08/ | Respiratory | | Other, Faculty | | | 2005 | Therapy | | [phone] | | +--------+ + + + + [...] + | MEDICAL GAS/HUMIDITY | Routin | 03/08/2006 | | Results for this | | | e | 2:03 AM | | procedure are in the | | | | PDT | | results section. | + +--------+ + + + documented in this encounter Results MEDICAL GAS/HUMIDITY (03/08/2006 2:03 AM PDT) + + + + + + | Component | Value | Ref Range | Performed | Pathologist | | | | | At | Signature | + + + + + + | [facility] | HEATED HUMIDITY AT 28 % | | | | | GAS/HUMIDIT | OXYGEN. Lamar | | | | | Y | Elia DIRECTOR OPERATIONS | | | | + + + [...] [facility] | [address] | [place], [place] | | | DIAGNOSTICS - | [address] | [address] | | | PULMONARY FUNCTION | | | | + + + + + documented in this encounter Visit Diagnoses Not on filedocumented in this encounter"
--- OUTSIDE RECORDS SUMMARY | ~2019-01-28 | XMS | Encounter Summary ---
Demographics + + + | Address | [address] | | | [place] [address] | + + + | Home Phone [...] [place], [place] | | | | | [address] | | + + + + + Care Team Providers + +------+ + | Care Middle School Teacher Name | Role | Phone | + +------+ + PCP | Unavailable | + +------+ + Encounter Details +--------+ + + + + | Date | Type | Department | Care Team | Description | +--------+ + + + + | 03/10/ | Respiratory | | Other, Faculty | | | 2005 | Therapy | | [phone] | | +--------+ + + + + [...] + | MEDICAL GAS/HUMIDITY | Routin | 03/10/2006 | | Results for this | | | e | 4:17 AM | | procedure are in the | | | | PDT | | results section. | + +--------+ + + + documented in this encounter Results MEDICAL GAS/HUMIDITY (03/10/2006 4:17 AM PDT) + + + + + + | Component | Value | Ref Range | Performed | Pathologist | | | | | At | Signature | + + + + + + | [facility] | HEATED HUMIDITY AT 24 % | | | | | GAS/HUMIDIT | AFIA. Jeannette Oconnell, | | | | | Y | BOILER WELDER | | | | + + + [...] [facility] | [address] | [place], [place] | | | DIAGNOSTICS - | [address] | [address] | | | PULMONARY FUNCTION | | | | + + + + + documented in this encounter Visit Diagnoses Not on filedocumented in this encounter"
--- OUTSIDE RECORDS SUMMARY | ~2019-01-28 | XMS | Encounter Summary ---
Demographics + + + | Address | [address] | | | [place] [address] | + + + | Home Phone [...] [place], [place] | | | | | [address] | | + + + + + Care Team Providers + +------+ + | Care New Media Strategist Name | Role | Phone | + +------+ + PCP | Unavailable | + +------+ + Encounter Details +--------+ + + + + | Date | Type | Department | Care Team | Description | +--------+ + + + + | 03/05/ | Respiratory | | Other, Faculty | | | 2005 | Therapy | | [phone] | | +--------+ + + + + [...] + | MEDICAL GAS/HUMIDITY | Routin | 03/05/2006 | | Results for this | | | e | 12:19 AM | | procedure are in the | | | | PDT | | results section. | + +--------+ + + + documented in this encounter Results MEDICAL GAS/HUMIDITY (03/05/2006 12:19 AM PDT) + + + + + + | Component | Value | Ref Range | Performed | Pathologist | | | | | At | Signature | + + + + + + | [facility] | HEATED HUMIDITY AT 24 % | | | | | GAS/HUMIDIT | OXYGEN. Viridiana Yu ADMINISTRATOR PESTICIDE | | | | | Y |Viridiana Yu ADMINISTRATOR PESTICIDE | | | | + + + [...] [facility] | [address] | [place], [place] | | | DIAGNOSTICS - | [address] | [address] | | | PULMONARY FUNCTION | | | | + + + + + documented in this encounter Visit Diagnoses Not on filedocumented in this encounter"
--- OUTSIDE RECORDS SUMMARY | ~2019-01-28 | XMS | Encounter Summary ---
Demographics + + + | Address | [address] | | | [place] [address] | + + + | Home Phone [...] [place], [place] | | | | | [address] | | + + + + + Care Team Providers + +------+ + | Care Watch Supervisor Name | Role | Phone | + +------+ + PCP | Unavailable | + +------+ + Encounter Details +--------+ + + + + | Date | Type | Department | Care Team | Description | +--------+ + + + + | 03/07/ | Respiratory | | Other, Faculty | | | 2005 | Therapy | | [phone] | | +--------+ + + + + [...] | DIAGNOSTICS - | [address] | [address] | | | PULMONARY FUNCTION | | | | + + + + + documented in this encounter Visit Diagnoses Not on filedocumented in this encounter"
--- OUTSIDE RECORDS SUMMARY | ~2019-01-28 | XMS | Encounter Summary ---
Demographics + + + | Address | [address] | | | [place] [address] | + + + | Home Phone [...] [place], [place] | | | | | [address] | | + + + + + Care Team Providers + +------+ + | Care Coffee Grinder Name | Role | Phone | + +------+ + PCP | Unavailable | + +------+ + Encounter Details +--------+ + + + + | Date | Type | Department | Care Team | Description | +--------+ + + + + | 03/04/ | Respiratory | | Other, Faculty | | | 2005 | Therapy | | [phone] | | +--------+ + + + + [...] + + + | [facility] | [address] | [place] | | | DIAGNOSTICS - | [address] | [address] | | | PULMONARY FUNCTION | | | | + + + + + documented in this encounter Visit Diagnoses Not on filedocumented in this encounter"
--- OUTSIDE RECORDS SUMMARY | ~2019-01-28 | XMS | Encounter Summary ---
Demographics + + + | Address | [address] | | | [place] [address] | + + + | Home Phone [...] [place], [place] | | | | | [address] | | + + + + + Care Team Providers + +------+ + | Care Public Housing Manager Name | Role | Phone | + +------+ + PCP | Unavailable | + +------+ + Encounter Details +--------+ + + + + | Date | Type | Department | Care Team | Description | +--------+ + + + + | 03/05/ | Respiratory | | Other, Faculty | | | 2005 | Therapy | | [phone] | | +--------+ + + + + [...] | ADULT AND SHRINERS | Routin | 03/05/2006 | | Results for this | | TREATMENTS | e | 7:30 AM | | procedure are in the | | | | PDT | | results section. | + +--------+ + + + documented in this encounter Results ADULT AND SHRINERS TREATMENTS (03/05/2006 7:30 AM PDT) + + + + + + | Component | Value | Ref Range | Performed | Pathologist | | | | | At | Signature | + + + + + + | [facility] | CONTINUOUS PULSE | | | | | TREATMENTS | OXIMETRY IN USE. | | | | | | BRONCHIAL HYGIENE | | | | | | THERAPY NOT GIVEN.NOT | | | | | | INDICATED AT THIS | | | | | | TIME. HEATED | | | | | | HUMIDITY AT 24 % | | | | | | OXYGEN. RT | | | | | | ARIANNE Anthony | | | | | | Alms, REVENUE FIELD AUDITOR | | | | + + + [...] + + + | [facility] | [address] | [place] | | | DIAGNOSTICS - | [address] | [address] | | | PULMONARY FUNCTION | | | | + + + + + documented in this encounter Visit Diagnoses Not on filedocumented in this encounter"
--- OUTSIDE RECORDS SUMMARY | ~2019-01-28 | XMS | Encounter Summary ---
Demographics + + + | Address | [address] | | | [place] [address] | + + + | Home Phone [...] [place], [place] | | | | | [address] | | + + + + + Care Team Providers + +------+ + | Care Medicare Nurse Name | Role | Phone | + +------+ + PCP | Unavailable | + +------+ + Encounter Details +--------+ + + + + | Date | Type | Department | Care Team | Description | +--------+ + + + + | 03/09/ | Respiratory | | Other, Faculty | | | 2005 | Therapy | | [phone] | | +--------+ + + + + [...] | | | | OXYGEN. Madeline Whiting, ANTHROPOLOGICAL LINGUIST | | | | + + + [...] [facility] | [address] | [place], [place] | | | DIAGNOSTICS - | [address] | [address] | | | PULMONARY FUNCTION | | | | + + + + + documented in this encounter Visit Diagnoses Not on filedocumented in this encounter"
--- OUTSIDE RECORDS SUMMARY | ~2019-01-28 | XMS | Encounter Summary ---
Demographics + + + | Address | [address] | | | [place] [address] | + + + | Home Phone [...] [place], [place] | | | | | [address] | | + + + + + Care Team Providers + +------+ + | Care Community Health Promoter Name | Role | Phone | + +------+ + PCP | Unavailable | + +------+ + Encounter Details +--------+ + + + + | Date | Type | Department | Care Team | Description | +--------+ + + + + | 02/18/ | Results | | Other, Faculty | | | 2006 | Only | | [phone] | | +--------+ + + + + [...] for this | | | e | 5:15 AM | | procedure are in the | | | | PDT | | results section. | + +--------+ + + + documented in this encounter Results CHEST 1 VIEW (02/19/2006 5:15 AM PDT) + + + + [...] is | | | | | | stable.There is | | | | | | increasing opacity | | | | | | within the right mid | | | | | | lung zone. Rightsided | | | | | | rib fractures are again | | | | | | noted. There is no | | | | | | pneumothorax. | | | | | | IMPRESSION: | | | | | | 1. Worsening ground | | | | | | glass opacity within the | | | | | | right lung, | | | | | | possiblyrepresenting | | | | | | evolving lung contusion | | | | | | vs. superimposed | | | | | | pneumonia oraspiration. | | | | | | 2. No change in | | | | | | stable support | | | | | | equipment, probable | | | | | | smallright-sided pleural | | | | | | effusion, multiple | | | | | | right-sided rib | | | | | | fractures,and bibasilar | | | | | | atelectasis. | | | | + + + + + + + + | Specimen | + + | | + + + + + | Narrative | Performed At | + + + | Ordered by RENITA ANDREWS | | + + + + +---------+ + + | Performing | Address | City/State/Zipcode | Phone Number | | Organization | | | | + +---------+ + + | [facility] | | | | | RADIOLOGY | | | | + +---------+ + + documented in this encounter Visit Diagnoses Not on filedocumented in this encounter"
--- OUTSIDE RECORDS SUMMARY | ~2019-01-28 | XMS | Encounter Summary ---
Demographics + + + | Address | [address] | | | [place] [address] | + + + | Home Phone [...] [place], [place] | | | | | [address] | | + + + + + Care Team Providers + +------+ + | Care Traffic Worker Name | Role | Phone | + +------+ + PCP | Unavailable | + +------+ + Encounter Details +--------+ + + + + | Date | Type | Department | Care Team | Description | +--------+ + + + + | 03/04/ | Respiratory | | Other, Faculty | | | 2005 | Therapy | | [phone] | | +--------+ + + + + [...] Vora, | | | | | | CASINO SHIFT MANAGER | | | | + + + [...] [facility] | [address] | [place], [place] | | | DIAGNOSTICS - | [address] | [address] | | | PULMONARY FUNCTION | | | | + + + + + documented in this encounter Visit Diagnoses Not on filedocumented in this encounter"
--- OUTSIDE RECORDS SUMMARY | ~2019-01-28 | XMS | Encounter Summary ---
Demographics + + + | Address | [address] [facility] [address] [facility] | | | [place] [address] | + + + | Home Phone [...] [place], [place] | | | | | [address] | | + + + + + Care Team Providers + +------+ + | Care Doormaker Name | Role | Phone | + +------+ + PCP | Unavailable | + +------+ + Encounter Details +--------+ + + + + | Date | Type | Department | Care Team | Description | +--------+ + + + + | 03/03/ | Respiratory | | Other, Faculty | | | 2005 | Therapy | | [phone] | | +--------+ + + + + [...] | DIAGNOSTICS - | [address] | [address] | | | PULMONARY FUNCTION | | | | + + + + + documented in this encounter Visit Diagnoses Not on filedocumented in this encounter"
--- OUTSIDE RECORDS SUMMARY | ~2019-01-28 | XMS | Encounter Summary ---
Demographics + + + | Address | [address] [facility] | | | [place] [address] | + + + | Home Phone [...] [place], [place] | | | | | [address] | | + + + + + Care Team Providers + +------+ + | Care Lockstitch Waistband Setter Name | Role | Phone | + +------+ + PCP | Unavailable | + +------+ + Encounter Details +--------+ + + + + | Date | Type | Department | Care Team | Description | +--------+ + + + + | 03/06/ | Respiratory | | Other, Faculty | | | 2005 | Therapy | | [phone] | | +--------+ + + + + [...] | | | | USE. Viridiana Yu, ENAMEL CRACKER | | | | + + + [...] [facility] | [address] | [place], [place] | | | DIAGNOSTICS - | [address] | [address] | | | PULMONARY FUNCTION | | | | + + + + + documented in this encounter Visit Diagnoses Not on filedocumented in this encounter"
--- OUTSIDE RECORDS SUMMARY | ~2019-01-28 | XMS | Encounter Summary ---
Demographics + + + | Address | [address] | | | [place] [address] | + + + | Home Phone [...] [place], [place] | | | | | [address] | | + + + + + Care Team Providers + +------+ + | Care Nurse Outreach Case Manager Name | Role | Phone | + +------+ + PCP | Unavailable | + +------+ + Encounter Details +--------+ + + + + | Date | Type | Department | Care Team | Description | +--------+ + + + + | 02/13/ | Procedure - | | Documentation, | OP REPORT-TEACHING | | 2006 | | | Teaching Physician | | | | Transcribed | | [...] | + +--------+ + + + | TEACHING PHYSICIAN | | 02/13/2006 | | | + +--------+ + + + documented in this encounter Visit Diagnoses Not on filedocumented in this encounter"
--- OUTSIDE RECORDS SUMMARY | ~2019-01-28 | XMS | Encounter Summary ---
Demographics + + + | Address | [address] | | | [place] [address] | + + + | Home Phone | | + + + | Preferred Language | Unknown | + + + | Marital Status | | + + + | Mu-Ism Affiliation | NON | + + + [...] [place], [place] | | | | | [address] | | + + + + + Care Team Providers + +------+ + | Care Steam Fitter Supervisor Maintenance Name | Role | Phone | + +------+ + PCP | Unavailable | + +------+ + Encounter Details +--------+ + + + + | Date | Type | Department | Care Team | Description | +--------+ + + + + | 03/01/ | Respiratory | | Other, Faculty | | | 2005 | Therapy | | [phone] | | +--------+ + + + + [...] + | MEDICAL GAS/HUMIDITY | Routin | 03/01/2006 | | Results for this | | | e | 10:29 AM | | procedure are in the | | | | PDT | | results section. | + +--------+ + + + documented in this encounter Results MEDICAL GAS/HUMIDITY (03/01/2006 10:29 AM PDT) + + + + + + | Component | Value | Ref Range | Performed | Pathologist | | | | | At | Signature | + + + + + + | [facility] | HEATED HUMIDITY AT 31 % | | | | | GAS/HUMIDIT | OXYGEN. Hayley Hinton PAINT SPRAYER SANDBLASTER | | | | | Y |Hayley Hinton PAINT SPRAYER SANDBLASTER | | | | + + + [...] [facility] | [address] | [place], [place] | | | DIAGNOSTICS - | [address] | [address] | | | PULMONARY FUNCTION | | | | + + + + + documented in this encounter Visit Diagnoses Not on filedocumented in this encounter"
--- OUTSIDE RECORDS SUMMARY | ~2019-01-28 | XMS | Encounter Summary ---
Demographics + + + | Address | [address] [facility] [address] | | | [place] [address] | + + + | Home Phone [...] [place], [place] | | | | | [address] | | + + + + + Care Team Providers + +------+ + | Care Voice And Data Technician Name | Role | Phone | + +------+ + PCP | Unavailable | + +------+ + Encounter Details +--------+ + + + + | Date | Type | Department | Care Team | Description | +--------+ + + + + | 03/13/ | Respiratory | | Other, Faculty | | | 2005 | Therapy | | [phone] | | +--------+ + + + + [...] for this | | | e | 6:01 AM | | procedure are in the | | | | PDT | | results section. | + +--------+ + + + documented in this encounter Results MEDICAL GAS/HUMIDITY (03/13/2006 6:01 AM PDT) + + + + + + | Component | Value | Ref Range | Performed | Pathologist | | | | | At | Signature | + + + + + + | [facility] | HEATED HUMIDITY AT 24 % | | | | | GAS/HUMIDIT | OXYGEN. Viridiana Yu TELECOMMUNICATION EQUIPMENT REPAIRER | | | | | Y |Viridiana Yu TELECOMMUNICATION EQUIPMENT REPAIRER | | | | + [...] [facility] | [address] | [place], [place] | | | DIAGNOSTICS - | [address] | [address] | | | PULMONARY FUNCTION | | | | + + + + + documented in this encounter Visit Diagnoses Not on filedocumented in this encounter"
--- OUTSIDE RECORDS SUMMARY | ~2019-01-28 | XMS | Encounter Summary ---
Demographics + + + | Address | [address] | | | [place] [address] | + + + | Home Phone | | + + + | Preferred Language | Unknown | + + + | Marital Status | | + + + | Lutheran Affiliation | NON | + + + [...] [place], [place] | | | | | [address] | | + + + + + Care Team Providers + +------+ + | Care Report Analyst Name | Role | Phone | + +------+ + PCP | Unavailable | + +------+ + Encounter Details +--------+ + + + + | Date | Type | Department | Care Team | Description | +--------+ + + + + | 03/09/ | Respiratory | | Other, Faculty | | | 2005 | Therapy | | [phone] | | +--------+ + + + + [...] for this | | | e | 10:13 AM | | procedure are in the | | | | PDT | | results section. | + +--------+ + + + documented in this encounter Results MEDICAL GAS/HUMIDITY (03/09/2006 10:13 AM PDT) + + + + + [...] | | | | OXYGEN. Madeline Whiting, VOTING MACHINE REPAIRER | | | | + + [...] [facility] | [address] | [place], [place] | | | DIAGNOSTICS - | [address] | [address] | | | PULMONARY FUNCTION | | | | + + + + + documented in this encounter Visit Diagnoses Not on filedocumented in this encounter"
--- OUTSIDE RECORDS SUMMARY | ~2019-01-28 | XMS | Encounter Summary ---
Demographics + + + | Address | [address] | | | [place] [address] | + + + | Home Phone [...] [place], [place] | | | | | [address] | | + + + + + Care Team Providers + +------+ + | Care Fur Pointer Name | Role | Phone | + +------+ + PCP | Unavailable | + +------+ + Encounter Details +--------+ + + + + | Date | Type | Department | Care Team | Description | +--------+ + + + + | 03/03/ | Respiratory | | Other, Faculty | | | 2005 | Therapy | | [phone] | | +--------+ + + + + [...] this | | TREATMENTS | e | 4:26 AM | | procedure are in the | | | | PDT | | results section. | + +--------+ + + + documented in this encounter Results ADULT AND SHRINERS TREATMENTS (03/03/2006 4:26 AM PDT) + + + + + [...] | | | | SUCTION: THICK WHITE AND | | | | | | YELLOW SPUTUM. | | | | | | BREATHSOUNDS IMPROVED | | | | | | Glenn Carroll COAL HAULER OPERATOR | | | | + + [...] [facility] | [address] | [place] | | | DIAGNOSTICS - | [address] | [address] | | | PULMONARY FUNCTION | | | | + + + + + documented in this encounter Visit Diagnoses Not on filedocumented in this encounter"
--- OUTSIDE RECORDS SUMMARY | ~2019-01-28 | XMS | Encounter Summary ---
Demographics + + + | Address | [address] | | | [place] [address] | + + + | Home Phone [...] [place], [place] | | | | | [address] | | + + + + + Care Team Providers + +------+ + | Care Insurance Associate Name | Role | Phone | + +------+ + PCP | Unavailable | + +------+ + Encounter Details +--------+ + + + + | Date | Type | Department | Care Team | Description | +--------+ + + + + | 03/05/ | Respiratory | | Other, Faculty | | | 2005 | Therapy | | [phone] | | +--------+ + + + + [...] + + | DIAGNOSTICS | Routin | 03/05/2006 | | Results for this | | | e | 12:20 AM | | procedure are in the | | | | PDT | | results section. | + +--------+ + + + documented in this encounter Results DIAGNOSTICS (03/05/2006 12:20 AM PDT) + + + + + + | Component | Value | Ref Range | Performed | Pathologist | | | | | At | Signature | + + + + + + | [facility] | CONTINUOUS PULSE | | | | | DIAGNOSTICS | OXIMETRY IN USE. Viridiana | | | | | | [...] [facility] | [address] | [place], [place] | | | DIAGNOSTICS - | [address] | [address] | | | PULMONARY FUNCTION | | | | + + + + + documented in this encounter Visit Diagnoses Not on filedocumented in this encounter"
--- OUTSIDE RECORDS SUMMARY | ~2019-01-28 | XMS | Encounter Summary ---
Demographics + + + | Address | [address] | | | [place] [address] | + + + | Home Phone [...] [place], [place] | | | | | [address] | | + + + + + Care Team Providers + +------+ + | Care Nurse Specialist Name | Role | Phone | + +------+ + PCP | Unavailable | + +------+ + Encounter Details +--------+ + + + + | Date | Type | Department | Care Team | Description | +--------+ + + + + | 02/27/ | Respiratory | | Other, Faculty | | | 2005 | Therapy | | [phone] | | +--------+ + + + + [...] + | MEDICAL GAS/HUMIDITY | Routin | 02/27/2006 | | Results for this | | | e | 12:12 AM | | procedure are in the | | | | PDT | | results section. | + +--------+ + + + documented in this encounter Results MEDICAL GAS/HUMIDITY (02/27/2006 12:12 AM PDT) + + + + + + | Component | Value | Ref Range | Performed | Pathologist | | | | | At | Signature | + + + + + + | [facility] | pt resp. rate 20-24 bpm, | | | | | GAS/HUMIDIT | sx for large amount of | | | | | Y | thick yellow secr. | | | | | | strongcough HEATED | | | | | | HUMIDITY AT 31 % OXYGEN. | | | | | | DYLAN ArteagaP | | | | + + + [...] [facility] | [address] | [place], [place] | | | DIAGNOSTICS - | [address] | [address] | | | PULMONARY FUNCTION | | | | + + + + + documented in this encounter Visit Diagnoses Not on filedocumented in this encounter"
--- OUTSIDE RECORDS SUMMARY | ~2019-01-28 | XMS | Encounter Summary ---
Demographics + + + | Address | [address] | | | [place] [address] | + + + | Home Phone | | + + + | Preferred Language | Unknown | + + + | Marital Status | | + + + | Uatsdin Affiliation | NON | + + + [...] [place], [place] | | | | | [address] | | + + + + + Care Team Providers + +------+ + | Care Management Technician Name | Role | Phone | [...]
--- OUTSIDE RECORDS SUMMARY | ~2019-01-28 | XMS | Encounter Summary ---
Demographics + + + | Address | [address] | | | [place] [address] | + + + | Home Phone | | + + + | Preferred Language | Unknown | + + + | Marital Status | | + + + | Latter Day Affiliation | NON | + + + [...] [place], [place] | | | | | [address] | | + + + + + Care Team Providers + +------+ + | Care Manager Of Learning Name | Role | Phone | + +------+ + PCP | Unavailable | + +------+ + Encounter Details +--------+ + + + + | Date | Type | Department | Care Team | Description | +--------+ + + + + | 03/10/ | Respiratory | | Other, Faculty | | | 2005 | Therapy | | [phone] | | +--------+ + + + + [...] Oconnell, | | | | | | PRECISION HONER | | | | + + + [...] [facility] | [address] | [place], [place] | | | DIAGNOSTICS - | [address] | [address] | | | PULMONARY FUNCTION | | | | + + + + + documented in this encounter Visit Diagnoses Not on filedocumented in this encounter"
--- OUTSIDE RECORDS SUMMARY | ~2019-01-28 | XMS | Encounter Summary ---
Demographics + + + | Address | [address] [facility] | | | [place] [address] | + + + | Home Phone [...] [place], [place] | | | | | [address] | | + + + + + Care Team Providers + +------+ + | Care Draftsperson Name | Role | Phone | + +------+ + PCP | Unavailable | + +------+ + Encounter Details +--------+ + + + + | Date | Type | Department | Care Team | Description | +--------+ + + + + | 03/05/ | Respiratory | | Other, Faculty | | | 2005 | Therapy | | [phone] | | +--------+ + + + + [...] [facility] | [address] | [place], [place] | | | DIAGNOSTICS - | [address] | [address] | | | PULMONARY FUNCTION | | | | + + + + + documented in this encounter Visit Diagnoses Not on filedocumented in this encounter"
--- OUTSIDE RECORDS SUMMARY | ~2019-01-28 | XMS | Encounter Summary ---
Demographics + + + | Address | [address] [facility] [address] | | | [place] [address] | + + + | Home Phone [...] [place], [place] | | | | | [address] | | + + + + + Care Team Providers + +------+ + | Care Scooping Machine Tender Name | Role | Phone | + +------+ + PCP | Unavailable | + +------+ + Encounter Details +--------+ + + + + | Date | Type | Department | Care Team | Description | +--------+ + + + + | 03/06/ | Respiratory | | Other, Faculty | | | 2005 | Therapy | | [phone] | | +--------+ + + + + [...] | | | | | | Beni, MANUFACTURING PLANT TECHNICIAN | | | | + + + [...] + + + | [facility] | [address] | [facility] [place] | | | DIAGNOSTICS - | [address] | [address] | | | PULMONARY FUNCTION | | | | + + + + + documented in this encounter Visit Diagnoses Not on filedocumented in this encounter"
--- OUTSIDE RECORDS SUMMARY | ~2019-01-28 | XMS | Encounter Summary ---
Demographics + + + | Address | [address] [facility] | | | [place] [address] | + + + | Home Phone [...] [place], [place] | | | | | [address] | | + + + + + Care Team Providers + +------+ + | Care Mixing Tumbler Operator Name | Role | Phone | + +------+ + PCP | Unavailable | + +------+ + Encounter Details +--------+ + + + + | Date | Type | Department | Care Team | Description | +--------+ + + + + | 03/07/ | Respiratory | | Other, Faculty | | | 2005 | Therapy | | [phone] | | +--------+ + + + + [...] + + | DIAGNOSTICS | Routin | 03/07/2006 | | Results for this | | | e | 10:47 AM | | procedure are in the | | | | PDT | | results section. | + +--------+ + + + documented in this encounter Results DIAGNOSTICS (03/07/2006 10:47 AM PDT) + + + + + + | Component | Value | Ref Range | Performed | Pathologist | | | | | At | Signature | + + + + + + | [facility] | PATIENTS PAIN ASSESSED | | | | | DIAGNOSTICS | AND WAS ONE ON A SCALE | | | | | | OF ZERO TO 10. | | | | | | CONTINUOUSPULSE OXIMETRY | | | | | | IN USE. Rose Howe, | | | | | | APPLIED BEHAVIOR SPECIALIST | | | | + + [...] [facility] | [address] | [place], [place] | | | DIAGNOSTICS - | [address] | [address] | | | PULMONARY FUNCTION | | | | + + + + + documented in this encounter Visit Diagnoses Not on filedocumented in this encounter"
--- OUTSIDE RECORDS SUMMARY | ~2019-01-28 | XMS | Encounter Summary ---
Demographics + + + | Address | [address] | | | [place] [address] | + + + | Home Phone [...] [place], [place] | | | | | [address] | | + + + + + Care Team Providers + +------+ + | Care Asphalt Tile Floor Layer Name | Role | Phone | + +------+ + PCP | Unavailable | + +------+ + Encounter Details +--------+ + + + + | Date | Type | Department | Care Team | Description | +--------+ + + + + | 03/09/ | Respiratory | | Other, Faculty | | | 2005 | Therapy | | [phone] | | +--------+ + + + + [...] | | | | OXYGEN. Madeline Whiting, AUTOMATIC SILK SCREEN PRINTER | | | | + + + [...] [facility] | [address] | [place], [place] | | | DIAGNOSTICS - | [address] | [address] | | | PULMONARY FUNCTION | | | | + + + + + documented in this encounter Visit Diagnoses Not on filedocumented in this encounter"
--- OUTSIDE RECORDS SUMMARY | ~2019-01-28 | XMS | Encounter Summary ---
Demographics + + + | Address | [address] | | | [place] [address] | + + + | Home Phone | | + + + | Preferred Language | Unknown | + + + | Marital Status | | + + + | Methodist Affiliation | NON | + + + [...] [place], [place] | | | | | [address] | | + + + + + Care Team Providers + +------+ + | Care Filling Layer Up Name | Role | Phone | + +------+ + PCP | Unavailable | + +------+ + Encounter Details +--------+ + + + + | Date | Type | Department | Care Team | Description | +--------+ + + + + | 03/04/ | Respiratory | | Other, Faculty | | | 2005 | Therapy | | [phone] | | +--------+ + + + + [...] | | TREATMENTS | e | 8:00 AM | | procedure are in the | | | | PDT | | results section. | + +--------+ + + + documented in this encounter Results ADULT AND SHRINERS TREATMENTS (03/04/2006 8:00 AM PDT) + + + + + + | Component | Value | Ref Range | Performed | Pathologist | | | | | At | Signature | + + + + + + | [facility] | CONTINUOUS PULSE | | | | | TREATMENTS | OXIMETRY IN USE. | | | | | | PATIENTS PAIN ASSESSED | | | | | | AND WAS ONE ON ASCALE OF | | | | | | ZERO TO 10. | | | | | | SUCTIONED . RHONCHI . | | | | | | REQUIRES SUCTION: THICK | | | | | | YELLOWSPUTUM. MODERATE | | | | | | IMPROVEMENTS AFTER | | | | | | TREATMENT HEATED | | | | | | HUMIDITY AT 31 %OXYGEN. | | | | | | Gabrielle Mac RCP | | | | + + [...] + + + | [facility] | [address] | [place], [place] | | | DIAGNOSTICS - | [address] | [address] | | | PULMONARY FUNCTION | | | | + + + + + documented in this encounter Visit Diagnoses Not on filedocumented in this encounter"
--- OUTSIDE RECORDS SUMMARY | ~2019-01-28 | XMS | Encounter Summary ---
Demographics + + + | Address | [address] [facility] [facility] | | | [place] [address] | + + + | Home Phone [...] [place], [place] | | | | | [address] | | + + + + + Care Team Providers + +------+ + | Care Wood And Hardware Outfitter Name | Role | Phone | + +------+ + PCP | Unavailable | + +------+ + Encounter Details +--------+ + + + + | Date | Type | Department | Care Team | Description | +--------+ + + + + | 03/13/ | Respiratory | | Other, Faculty | | | 2005 | Therapy | | [phone] | | +--------+ + + + + [...] | | | | Y |Yung Boss, PARTS COUNTER SALESPERSON | | | | + + [...] [facility] | [address] | [place], [place] | | | DIAGNOSTICS - | [address] | [address] | | | PULMONARY FUNCTION | | | | + + + + + documented in this encounter Visit Diagnoses Not on filedocumented in this encounter"
--- OUTSIDE RECORDS SUMMARY | ~2019-01-28 | XMS | Encounter Summary ---
Demographics + + + | Address | [address] [address] | | | [place] [address] | + + + | Home Phone [...] [place], [place] | | | | | [address] | | + + + + + Care Team Providers + +------+ + | Care Prototype Technician Name | Role | Phone | [...] | Transcriptions | + + | Interface, Concrete Paver In - 03/16/2006 2:06 AM PDT | | [id number] | | [id number] ASHLEY Peck [id number] | | | | Date: 02/15/2006 | [...] De La Garza M.D., F.A.C.S. | | deportation examiner @ [employer] | | | | SHARA / HS | | [phone] / [id number] / [id number] / [phone] | | | | | | E: 02/28/2006 vita | | | | Electronically signed by Thai De La Garza 03-15-2006 05:35:16 PM | + + documented in this encounter Visit Diagnoses Not on filedocumented in this encounter"
--- OUTSIDE RECORDS SUMMARY | ~2019-01-28 | XMS | Encounter Summary ---
Demographics + + + | Address | [address] [facility] | | | [place] [address] | + + + | Home Phone | | + + + | Preferred Language | Unknown | + + + | Marital Status | | + + + | Bahai Affiliation | NON | + + + [...] [place], [place] | | | | | [address] | | + + + + + Care Team Providers + +------+ + | Care Veterinarian Helper Name | Role | Phone | + +------+ + PCP | Unavailable | + +------+ + Encounter Details +--------+ + + + + | Date | Type | Department | Care Team | Description | +--------+ + + + + | 02/28/ | Respiratory | | Other, Faculty | | | 2005 | Therapy | | [phone] | | +--------+ + + + + [...] encounter Results ADULT AND SHRINERS TREATMENTS (02/28/2006 10:00 PM PDT) + + + + [...] . | | | | | | GOOD PRODUCTIVE COUGH: | | | | | | THICK YELLOW SPUTUM. | | | | | | BREATH SOUNDSIMPROVED | | | | | | Noelle Rothman, BUILD TECHNICIAN | | | | + + [...] [facility] | [address] | [place], [place] | | | DIAGNOSTICS - | [address] | [address] | | | PULMONARY FUNCTION | | | | + + + + + documented in this encounter Visit Diagnoses Not on filedocumented in this encounter"
--- OUTSIDE RECORDS SUMMARY | ~2019-01-28 | XMS | Encounter Summary ---
Demographics + + + | Address | [address] | | | [place] [address] | + + + | Home Phone [...] [place], [place] | | | | | [address] | | + + + + + Care Team Providers + +------+ + | Care Scuba Dive Training Instructor Name | Role | Phone | + +------+ + PCP | Unavailable | + +------+ + Encounter Details +--------+ + + + + | Date | Type | Department | Care Team | Description | +--------+ + + + + | 03/04/ | Respiratory | | Other, Faculty | | | 2005 | Therapy | | [phone] | | +--------+ + + + + [...] this | | TREATMENTS | e | 4:15 AM | | procedure are in the | | | | PDT | | results section. | + +--------+ + + + documented in this encounter Results ADULT AND SHRINERS TREATMENTS (03/04/2006 4:15 AM PDT) + + + + + [...] | | | | | BILATERAL . GOOD | | | | | | PRODUCTIVE COUGH: THICK | | | | | | YELLOW SPUTUM. | | | | | | BREATHSOUNDS IMPROVED | | | | | | MODERATE IMPROVEMENTS | | | | | | AFTER TREATMENT Bill | | | | | | [...] + + + | [facility] | [address] | [place], [place] | | | DIAGNOSTICS - | [address] | [address] | | | PULMONARY FUNCTION | | | | + + + + + documented in this encounter Visit Diagnoses Not on filedocumented in this encounter"
--- OUTSIDE RECORDS SUMMARY | ~2019-01-28 | XMS | Encounter Summary ---
Demographics + + + | Address | [address] [facility] | | | [place] [address] | + + + | Home Phone | | + + + | Preferred Language | Unknown | + + + | Marital Status | | + + + | Advent Affiliation | NON | + + + [...] [place], [place] | | | | | [address] | | + + + + + Care Team Providers + +------+ + | Care Flight Surveyor Name | Role | Phone | + +------+ + PCP | Unavailable | + +------+ + Encounter Details +--------+ + + + + | Date | Type | Department | Care Team | Description | +--------+ + + + + | 03/08/ | Respiratory | | Other, Faculty | | | 2005 | Therapy | | [phone] | | +--------+ + + + + [...] | | | | Y | Elia MIXER HELPER | | | | + + [...] [facility] | [address] | [place], [place] | | | DIAGNOSTICS - | [address] | [address] | | | PULMONARY FUNCTION | | | | + + + + + documented in this encounter Visit Diagnoses Not on filedocumented in this encounter"
--- OUTSIDE RECORDS SUMMARY | ~2019-01-28 | XMS | Clinical Summary ---
Demographics + + + | Address | [address] [facility] | | | [place] [address] | + + + | Home Phone [...] [place], [place] | | | | | [address] | | + + + + + Care Team Providers + +------+ + | Care Heel Sprayer Name | Role | Phone | + +------+ + PP | Unavailable | + +------+ + Source Comments [facility] Allergies Not on File Medications Not on [...] | | al/Fam | | 1965 | [phone] | [place], [place] | | | ernst | | | 4 (Home) | [address] | + +--------+ +--------+ + + | Odilon Antoine | Third | Self | [birth year] | [address] | | | Libertarian | | 1965 | [phone] | [place], [place] | | | Liabil | | | 4 (Home) | [address] | | | ity | | | | | + +--------+ +--------+ + +"
--- OUTSIDE RECORDS SUMMARY | ~2019-01-28 | XMS | Encounter Summary ---
Demographics + + + | Address | [address] | | | [place] [address] | + + + | Home Phone [...] [place], [place] | | | | | [address] | | + + + + + Care Team Providers + +------+ + | Care Rnp Name | Role | Phone | + +------+ + PCP | Unavailable | + +------+ + Encounter Details +--------+ + + + + | Date | Type | Department | Care Team | Description | +--------+ + + + + | 02/20/ | Respiratory | | Other, Faculty | | | 2005 | Therapy | | [phone] | | +--------+ + + + + [...] + | MEDICAL GAS/HUMIDITY | Routin | 02/20/2006 | | Results for this | | | e | 1:03 PM | | procedure are in the | | | | PDT | | results section. | + +--------+ + + + documented in this encounter Results MEDICAL GAS/HUMIDITY (02/20/2006 1:03 PM PDT) + + + + + + | Component | Value | Ref Range | Performed | Pathologist | | | | | At | Signature | + + + + + + | [facility] | HEATED HUMIDITY AT 24 % | | | | | GAS/HUMIDIT | OXYGEN. Clarisa Nguyen, | | | | | Y | COUNTY MANAGER | | | | + + [...] | DIAGNOSTICS - | [address] | [address] | | | PULMONARY FUNCTION | | | | + + + + + documented in this encounter Visit Diagnoses Not on filedocumented in this encounter"
--- OUTSIDE RECORDS SUMMARY | ~2019-01-28 | XMS | Encounter Summary ---
Demographics + + + | Address | [address] [facility] | | | [place] [address] | + + + | Home Phone | | + + + | Preferred Language | Unknown | + + + | Marital Status | | + + + | Cheondoism Affiliation | NON | + + + [...] [place], [place] | | | | | [address] | | + + + + + Care Team Providers + +------+ + | Care Child Care Centre Director Name | Role | Phone | + +------+ + PCP | Unavailable | + +------+ + Encounter Details +--------+ + + + + | Date | Type | Department | Care Team | Description | +--------+ + + + + | 03/06/ | Respiratory | | Other, Faculty | | | 2005 | Therapy | | [phone] | | +--------+ + + + + [...] documented in this encounter Results DIAGNOSTICS (03/06/2006 1:24 PM PDT) + + + [...] | | | | | IN USE. Corrine Bazan, | | | | | | PASSENGER RELATIONS REPRESENTATIVE | | | | + + + [...] [facility] | [address] | [place] | | | DIAGNOSTICS - | [address] | [address] | | | PULMONARY FUNCTION | | | | + + + + + documented in this encounter Visit Diagnoses Not on filedocumented in this encounter"
--- OUTSIDE RECORDS SUMMARY | ~2019-01-28 | XMS | Encounter Summary ---
Demographics + + + | Address | [address] [facility] | | | [place] [address] | + + + | Home Phone | | + + + | Preferred Language | Unknown | + + + | Marital Status | | + + + | Denominational Affiliation | NON | + + + [...] [place], [place] | | | | | [address] | | + + + + + Care Team Providers + +------+ + | Care Loss Prevention Analyst Name | Role | Phone | + +------+ + PCP | Unavailable | + +------+ + Encounter Details +--------+ + + + + | Date | Type | Department | Care Team | Description | +--------+ + + + + | 03/03/ | Respiratory | | Other, Faculty | | | 2005 | Therapy | | [phone] | | +--------+ + + + + [...] [facility] | [address] | [place], [place] | | | DIAGNOSTICS - | [address] | [address] | | | PULMONARY FUNCTION | | | | + + + + + documented in this encounter Visit Diagnoses Not on filedocumented in this encounter"
--- OUTSIDE RECORDS SUMMARY | ~2019-01-28 | XMS | Encounter Summary ---
Demographics + + + | Address | [address] [facility] | | | [place] [address] | + + + | Home Phone [...] [place], [place] | | | | | [address] | | + + + + + Care Team Providers + +------+ + | Care Assorter Laundry Name | Role | Phone | + +------+ + PCP | Unavailable | + +------+ + Encounter Details +--------+ + + + + | Date | Type | Department | Care Team | Description | +--------+ + + + + | 03/11/ | Respiratory | | Other, Faculty | | | 2005 | Therapy | | [phone] | | +--------+ + + + + [...] | | DIAGNOSTICS | OXIMETRY IN USE. Jeannetet | | | | | | MARLENE [...] [facility] | [address] | [place], [place] | | | DIAGNOSTICS - | [address] | [address] | | | PULMONARY FUNCTION | | | | + + + + + documented in this encounter Visit Diagnoses Not on filedocumented in this encounter"
--- OUTSIDE RECORDS SUMMARY | ~2019-01-28 | XMS | Encounter Summary ---
Demographics + + + | Address | [address] [facility] | | | [place] [address] | + + + | Home Phone [...] [place], [place] | | | | | [address] | | + + + + + Care Team Providers + +------+ + | Care Cloth Beamer Name | Role | Phone | + +------+ + PCP | Unavailable | + +------+ + Encounter Details +--------+ + + + + | Date | Type | Department | Care Team | Description | +--------+ + + + + | 03/18/ | Respiratory | | Other, Faculty | | | 2005 | Therapy | | [phone] | | +--------+ + + + + [...] + | MEDICAL GAS/HUMIDITY | Routin | 03/18/2006 | | Results for this | | | e | 3:33 AM | | procedure are in the | | | | PDT | | results section. | + +--------+ + + + documented in this encounter Results MEDICAL GAS/HUMIDITY (03/18/2006 3:33 AM PDT) + + + + + + | Component | Value | Ref Range | Performed | Pathologist | | | | | At | Signature | + + + + + + | [facility] | HEATED HUMIDITY AT 24 % | | | | | GAS/HUMIDIT | AFIA. Irina Luo, | | | | | Y | DOOR TO DOOR SELLING AGENT | | | | + + + [...] [facility] | [address] | [place] | | | DIAGNOSTICS - | [address] | [address] | | | PULMONARY FUNCTION | | | | + + + + + documented in this encounter Visit Diagnoses Not on filedocumented in this encounter"
--- OUTSIDE RECORDS SUMMARY | ~2019-01-28 | XMS | Clinical Summary ---
Demographics + + + | Address | [address] | | | [place] [address] | + + + | Home Phone [...] [place], [place] | | | | | [address] | | + + + + + Care Team Providers + +------+ + | Care Firer Watertender Name | Role | Phone | + +------+ + PP | Unavailable | + +------+ + Source Comments [facility] and [facility] Allergies Not on File Medications [...] | | al/Fam | | 1965 | [phone] | [place], [place] | | | ernst | | | 4 (Home) | [address] | + +--------+ +--------+ + + | Odilon Antoine | Third | Self | [birth year] | | [address] | | | Democrat | | 1965 | [phone] | [place], [place] | | | Liabil | | | 4 (Home) | [address] | | | ity | | | | | + +--------+ +--------+ + +"
--- OUTSIDE RECORDS SUMMARY | ~2019-01-28 | XMS | Encounter Summary ---
Demographics + + + | Address | [address] | | | [place] [address] | + + + | Home Phone | | + + + | Preferred Language | Unknown | + + + | Marital Status | | + + + | Mosque Affiliation | NON | + + + [...] [place], [place] | | | | | [address] | | + + + + + Care Team Providers + +------+ + | Care Doctor Of Podiatry Name | Role | Phone | + +------+ + PCP | Unavailable | + +------+ + Encounter Details +--------+ + + + + | Date | Type | Department | Care Team | Description | +--------+ + + + + | 02/18/ | Respiratory | | Other, Faculty | | | 2005 | Therapy | | [phone] | | +--------+ + + + + [...] | | | | | Y | COMPRESSOR OPERATOR | | | | + + [...] | DIAGNOSTICS - | [address] | [address] | | | PULMONARY FUNCTION | | | | + + + + + documented in this encounter Visit Diagnoses Not on filedocumented in this encounter"
--- OUTSIDE RECORDS SUMMARY | ~2019-01-28 | XMS | Encounter Summary ---
Demographics + + + | Address | [address] | | | [place] [address] | + + + | Home Phone [...] [place], [place] | | | | | [address] | | + + + + + Care Team Providers + +------+ + | Care Box Spinner Name | Role | Phone | + +------+ + PCP | Unavailable | + +------+ + Encounter Details +--------+ + + + + | Date | Type | Department | Care Team | Description | +--------+ + + + + | 03/02/ | Respiratory | | Other, Faculty | | | 2005 | Therapy | | [phone] | | +--------+ + + + + [...] for this | | | e | 8:59 AM | | procedure are in the | | | | PDT | | results section. | + +--------+ + + + documented in this encounter Results MEDICAL GAS/HUMIDITY (03/02/2006 8:59 AM PDT) + + + + + + | Component | Value | Ref Range | Performed | Pathologist | | | | | At | Signature | + + + + + + | [facility] | HEATED HUMIDITY AT 31 % | | | | | GAS/HUMIDIT | OXYGEN. Kenny Sanford, | | | | | Y | REFINERY TECHNICIAN | | | | + + [...] | DIAGNOSTICS - | [address] | [address] | | | PULMONARY FUNCTION | | | | + + + + + documented in this encounter Visit Diagnoses Not on filedocumented in this encounter"
--- OUTSIDE RECORDS SUMMARY | ~2019-01-28 | XMS | Encounter Summary ---
Demographics + + + | Address | [address] [facility] | | | [place] [address] | + + + | Home Phone | | + + + | Preferred Language | Unknown | + + + | Marital Status | | + + + | Zoroastrian Affiliation | NON | + + + [...] [place], [place] | | | | | [address] | | + + + + + Care Team Providers + +------+ + | Care Weed Sprayer Name | Role | Phone | + +------+ + PCP | Unavailable | + +------+ + Encounter Details +--------+ + + + + | Date | Type | Department | Care Team | Description | +--------+ + + + + | 03/11/ | Respiratory | | Other, Faculty | | | 2005 | Therapy | | [phone] | | +--------+ + + + + [...] | | | | | Y | STOREKEEPER HELPER | | | | + + [...] [facility] | [address] | [place] | | | DIAGNOSTICS - | [address] | [address] | | | PULMONARY FUNCTION | | | | + + + + + documented in this encounter Visit Diagnoses Not on filedocumented in this encounter"
--- OUTSIDE RECORDS SUMMARY | ~2019-01-28 | XMS | Encounter Summary ---
Demographics + + + | Address | [address] | | | [place] [address] | + + + | Home Phone | | + + + | Preferred Language | Unknown | + + + | Marital Status | | + + + | Yazidi Affiliation | NON | + + + [...] [place], [place] | | | | | [address] | | + + + + + Care Team Providers + +------+ + | Care Horse Identifier Name | Role | Phone | + +------+ + PCP | Unavailable | + +------+ + Encounter Details +--------+ + + + + | Date | Type | Department | Care Team | Description | +--------+ + + + + | 03/06/ | Respiratory | | Other, Faculty | | | 2005 | Therapy | | [phone] | | +--------+ + + + + [...] | | | | | | Beni, SUPERVISOR PAPER TESTING | | | | + + + [...] + + + | [facility] | [address] | [facility] [place] | | | DIAGNOSTICS - | [address] | [address] | | | PULMONARY FUNCTION | | | | + + + + + documented in this encounter Visit Diagnoses Not on filedocumented in this encounter"
--- OUTSIDE RECORDS SUMMARY | ~2019-01-28 | XMS | Encounter Summary ---
Demographics + + + | Address | [address] [facility] [facility] | | | [place] [address] | + + + | Home Phone [...] [place], [place] | | | | | [address] | | + + + + + Care Team Providers + +------+ + | Care Office Service Coordinator Name | Role | Phone | + +------+ + PCP | Unavailable | + +------+ + Encounter Details +--------+ + + + + | Date | Type | Department | Care Team | Description | +--------+ + + + + | 03/08/ | Respiratory | | Other, Faculty | | | 2005 | Therapy | | [phone] | | +--------+ + + + + [...] for this | | | e | 5:40 PM | | procedure are in the | | | | PDT | | results section. | + +--------+ + + + documented in this encounter Results MEDICAL GAS/HUMIDITY (03/08/2006 5:40 PM PDT) + + + + + + | Component | Value | Ref Range | Performed | Pathologist | | | | | At | Signature | + + + + + + | [facility] | PATIENTS PAIN ASSESSED | | | | | GAS/HUMIDIT | AND WAS ZERO ON A SCALE | | | | | Y | OF ZERO TO 10. | | | | | | CONTINUOUSPULSE OXIMETRY | | | | | | IN USE. HEATED | | | | | | HUMIDITY AT 28 % OXYGEN. | | | | | | Yariel Smith RCP | | | | + + [...] [facility] | [address] | [place], [place] | | | DIAGNOSTICS - | [address] | [address] | | | PULMONARY FUNCTION | | | | + + + + + documented in this encounter Visit Diagnoses Not on filedocumented in this encounter"
--- OUTSIDE RECORDS SUMMARY | ~2019-01-28 | XMS | Encounter Summary ---
Demographics + + + | Address | [address] [facility] [address] [facility] | | | [place] [address] | + + + | Home Phone | | + + + | Preferred Language | Unknown | + + + | Marital Status | | + + + | Restorationist Affiliation | NON | + + + [...] [place], [place] | | | | | [address] | | + + + + + Care Team Providers + +------+ + | Care Hr Systems Analyst Name | Role | Phone | + +------+ + PCP | Unavailable | + +------+ + Encounter Details +--------+ + + + + | Date | Type | Department | Care Team | Description | +--------+ + + + + | 03/10/ | Respiratory | | Other, Faculty | | | 2005 | Therapy | | [phone] | | +--------+ + + + + [...] | | | | | Y | MARKET ANALYSIS DIRECTOR | | | | + + + [...] [facility] | [address] | [place], [place] | | | DIAGNOSTICS - | [address] | [address] | | | PULMONARY FUNCTION | | | | + + + + + documented in this encounter Visit Diagnoses Not on filedocumented in this encounter"
--- OUTSIDE RECORDS SUMMARY | ~2019-01-28 | XMS | Encounter Summary ---
Demographics + + + | Address | [address] | | | [place] [address] | + + + | Home Phone [...] [place], [place] | | | | | [address] | | + + + + + Care Team Providers + +------+ + | Care Miniature Set Builder Name | Role | Phone | + +------+ + PCP | Unavailable | + +------+ + Encounter Details +--------+ + + + + | Date | Type | Department | Care Team | Description | +--------+ + + + + | 03/19/ | Respiratory | | Other, Faculty | | | 2005 | Therapy | | [phone] | | +--------+ + + + + [...] [facility] | [address] | [place], [place] | | | DIAGNOSTICS - | [address] | [address] | | | PULMONARY FUNCTION | | | | + + + + + documented in this encounter Visit Diagnoses Not on filedocumented in this encounter"
--- OUTSIDE RECORDS SUMMARY | ~2019-01-28 | XMS | Encounter Summary ---
Demographics + + + | Address | [address] [facility] [facility] | | | [place] [address] | + + + | Home Phone [...] [place], [place] | | | | | [address] | | + + + + + Care Team Providers + +------+ + | Care Slitting Machine Operator Helper Name | Role | Phone | + +------+ + PCP | Unavailable | + +------+ + Encounter Details +--------+ + + + + | Date | Type | Department | Care Team | Description | +--------+ + + + + | 02/28/ | Respiratory | | Other, Faculty | | | 2005 | Therapy | | [phone] | | +--------+ + + + + [...] + + + | [facility] | [address] | [place], [place] | | | DIAGNOSTICS - | [address] | [address] | | | PULMONARY FUNCTION | | | | + + + + + documented in this encounter Visit Diagnoses Not on filedocumented in this encounter"
--- OUTSIDE RECORDS SUMMARY | ~2019-01-28 | XMS | Encounter Summary ---
Demographics + + + | Address | [address] [facility] | | | [place] [address] | + + + | Home Phone [...] [place], [place] | | | | | [address] | | + + + + + Care Team Providers + +------+ + | Care Customer Account Coordinator Name | Role | Phone | + +------+ + PCP | Unavailable | + +------+ + Encounter Details +--------+ + + + + | Date | Type | Department | Care Team | Description | +--------+ + + + + | 03/02/ | Respiratory | | Other, Faculty | | | 2005 | Therapy | | [phone] | | +--------+ + + + + [...] | | | | Y | III, CLINICAL LABORATORY SCIENTIST | | | | + + [...] [facility] | [address] | [place] | | | DIAGNOSTICS - | [address] | [address] | | | PULMONARY FUNCTION | | | | + + + + + documented in this encounter Visit Diagnoses Not on filedocumented in this encounter"
--- OUTSIDE RECORDS SUMMARY | ~2019-01-28 | XMS | Encounter Summary ---
Demographics + + + | Address | [address] [facility] | | | [place] [address] | + + + | Home Phone | | + + + | Preferred Language | Unknown | + + + | Marital Status | | + + + | Gnosticist Affiliation | NON | + + + [...] [place], [place] | | | | | [address] | | + + + + + Care Team Providers + +------+ + | Care Anthropology Faculty Member Name | Role | Phone | + +------+ + PCP | Unavailable | + +------+ + Encounter Details +--------+ + + + + | Date | Type | Department | Care Team | Description | +--------+ + + + + | 02/28/ | Respiratory | | Other, Faculty | | | 2005 | Therapy | | [phone] | | +--------+ + + + + [...] this | | TREATMENTS | e | 6:29 PM | | procedure are in the | | | | PDT | | results section. | + +--------+ + + + documented in this encounter Results ADULT AND SHRINERS TREATMENTS (02/28/2006 6:29 PM PDT) + + + + + [...] THICK | | | | | | CLEAR WHITE SPUTUM. Espinoza | | | | | | MARLENE Sun | | | | + + + [...] [facility] | [address] | [place], [place] | | | DIAGNOSTICS - | [address] | [address] | | | PULMONARY FUNCTION | | | | + + + + + documented in this encounter Visit Diagnoses Not on filedocumented in this encounter"
--- OUTSIDE RECORDS SUMMARY | ~2019-01-28 | XMS | Encounter Summary ---
Demographics + + + | Address | [address] [facility] [facility] [facility] | | | [place] [address] | + + + | Home Phone | | + + + | Preferred Language | Unknown | + + + | Marital Status | | + + + | Muslim Affiliation | NON | + + + | Race | White | + + + | Ethnic Group | Not or | + + + Author + + + | Author | [facility] | + + + | Organization | [facility] | + + + | Address | Unknown | + + + | Phone | Unavailable | + + + Support + + + + + | Name | Relationship | Address | Phone | + + + + + | Yanni Antoine | ECON | [address] | | | | | [place], [place] | | | | | [address] | | + + + + + Care Team Providers + +------+ + | Care Physically Impaired Teacher Name | Role | Phone | [...] Chung MD | | | | | [facility] | | | | | | Mailcode: [id number] | | | | | | [place] | | | | | | [address] [place], | | | | | | [place] [address] | | | | | | [phone] | | | +--------+ + + + [...] + + | Performing | Address | City/State/[facility] | Phone Number | | Organization | | | | + +---------+ + + | [facility] DEPARTMENT OF | | | | | RADIOLOGY | | | | + +---------+ + + documented in this encounter Visit Diagnoses Not on filedocumented in this encounter"
--- OUTSIDE RECORDS SUMMARY | ~2019-01-28 | XMS | Encounter Summary ---
Demographics + + + | Address | [address] | | | [place] [address] | + + + | Home Phone [...] [place], [place] | | | | | [address] | | + + + + + Care Team Providers + +------+ + | Care Supervisor Cytology Name | Role | Phone | + +------+ + PCP | Unavailable | + +------+ + Encounter Details +--------+ + + + + | Date | Type | Department | Care Team | Description | +--------+ + + + + | 02/28/ | Respiratory | | Other, Faculty | | | 2005 | Therapy | | [phone] | | +--------+ + + + + [...] encounter Results ADULT AND SHRINERS TREATMENTS (02/28/2006 3:00 AM PDT) + + + + [...] Rothman, | | | | | | HEALTH AND SAFETY COORDINATOR | | | | + + + [...] + + + | [facility] | [address] | [place], [place] | | | DIAGNOSTICS - | [address] | [address] | | | PULMONARY FUNCTION | | | | + + + + + documented in this encounter Visit Diagnoses Not on filedocumented in this encounter"
--- OUTSIDE RECORDS SUMMARY | ~2019-01-28 | XMS | Encounter Summary ---
Demographics + + + | Address | [address] | | | [place] [address] | + + + | Home Phone [...] [place], [place] | | | | | [address] | | + + + + + Care Team Providers + +------+ + | Care Channel Lip Wetter Name | Role | Phone | + +------+ + PCP | Unavailable | + +------+ + Encounter Details +--------+ + + + + | Date | Type | Department | Care Team | Description | +--------+ + + + + | 03/04/ | Respiratory | | Other, Faculty | | | 2005 | Therapy | | [phone] | | +--------+ + + + + [...] [facility] | [address] | [facility] [place] | | | DIAGNOSTICS - | [address] | [address] | | | PULMONARY FUNCTION | | | | + + + + + documented in this encounter Visit Diagnoses Not on filedocumented in this encounter"
--- OUTSIDE RECORDS SUMMARY | ~2019-01-28 | XMS | Encounter Summary ---
Demographics + + + | Address | [address] [facility] [facility] | | | [place] [address] | + + + | Home Phone [...] [place], [place] | | | | | [address] | | + + + + + Care Team Providers + +------+ + | Care Diesel Engineer Name | Role | Phone | [...]
--- OUTSIDE RECORDS SUMMARY | ~2019-01-28 | XMS | Encounter Summary ---
Demographics + + + | Address | [address] [facility] | | | [place] [address] | + + + | Home Phone [...] [place], [place] | | | | | [address] | | + + + + + Care Team Providers + +------+ + | Care Group Home Supervisor Name | Role | Phone | + +------+ + PCP | Unavailable | + +------+ + Encounter Details +--------+ + + + + | Date | Type | Department | Care Team | Description | +--------+ + + + + | 03/20/ | Respiratory | | Other, Faculty | | | 2005 | Therapy | | [phone] | | +--------+ + + + + [...] this | | | e | 4:50 AM | | procedure are in the | | | | PDT | | results section. | + +--------+ + + + documented in this encounter Results MEDICAL GAS/HUMIDITY (03/20/2006 4:50 AM PDT) + + + + + + | Component | Value | Ref Range | Performed | Pathologist | | | | | At | Signature | + + + + + + | [facility] | OXYGEN OR HUMIDITY ON | | | | | GAS/HUMIDIT | STANDBY. Macario | | | | | Y | DYLAN MarionP | | | | + + + [...] [facility] | [address] | [place], [place] | | | DIAGNOSTICS - | [address] | [address] | | | PULMONARY FUNCTION | | | | + + + + + documented in this encounter Visit Diagnoses Not on filedocumented in this encounter"
--- OUTSIDE RECORDS SUMMARY | ~2019-01-28 | XMS | Encounter Summary ---
Demographics + + + | Address | [address] [facility] | | | [place] [address] | + + + | Home Phone | | + + + | Preferred Language | Unknown | + + + | Marital Status | | + + + | Gnosticism Affiliation | NON | + + + [...] [place], [place] | | | | | [address] | | + + + + + Care Team Providers + +------+ + | Care Port Drier Name | Role | Phone | + +------+ + PCP | Unavailable | + +------+ + Encounter Details +--------+ + + + + | Date | Type | Department | Care Team | Description | +--------+ + + + + | 03/10/ | Respiratory | | Other, Faculty | | | 2005 | Therapy | | [phone] | | +--------+ + + + + [...] Oconnell, | | | | | | SALESFORCE CONSULTANT | | | | + + [...] [facility] | [address] | [place], [place] | | | DIAGNOSTICS - | [address] | [address] | | | PULMONARY FUNCTION | | | | + + + + + documented in this encounter Visit Diagnoses Not on filedocumented in this encounter"
--- OUTSIDE RECORDS SUMMARY | ~2019-01-28 | XMS | Encounter Summary ---
Demographics + + + | Address | [address] | | | [place] [address] | + + + | Home Phone | | + + + | Preferred Language | Unknown | + + + | Marital Status | | + + + | Pentecostal Affiliation | NON | + + + | Race | White | + + + | Ethnic Group | Not or | + + + Author + + + | Author | [facility] | + + + | Organization | [facility] | + + + | Address | Unknown | + + + | Phone | Unavailable | + + + Support + + + + + | Name | Relationship | Address | Phone | + + + + + | Yanni Antoine | ECON | [address] | | | | | [place], [place] | | | | | [address] | | + + + + + Care Team Providers + +------+ + | Care Four Slide Machine Operator Name | Role | Phone [...]
--- OUTSIDE RECORDS SUMMARY | ~2019-01-28 | XMS | Encounter Summary ---
Demographics + + + | Address | [address] [facility] [facility] | | | [place] [address] | + + + | Home Phone [...] [place], [place] | | | | | [address] | | + + + + + Care Team Providers + +------+ + | Care System Sales Consultant Name | Role | Phone | + +------+ + PCP | Unavailable | + +------+ + Encounter Details +--------+ + + + + | Date | Type | Department | Care Team | Description | +--------+ + + + + | 03/01/ | Respiratory | | Other, Faculty | | | 2005 | Therapy | | [phone] | | +--------+ + + + + [...] | | GAS/HUMIDIT | OXYGEN. Hayley Hinton GLOVE EXAMINER | | | | | Y |Hayley Hinton GLOVE EXAMINER | | | | + + + [...] [facility] | [address] | [place], [place] | | | DIAGNOSTICS - | [address] | [address] | | | PULMONARY FUNCTION | | | | + + + + + documented in this encounter Visit Diagnoses Not on filedocumented in this encounter"
--- OUTSIDE RECORDS SUMMARY | ~2019-01-28 | XMS | Encounter Summary ---
Demographics + + + | Address | [address] [facility] | | | [place] [address] | + + + | Home Phone | | + + + | Preferred Language | Unknown | + + + | Marital Status | | + + + | Jewish Affiliation | NON | + + + [...] [place], [place] | | | | | [address] | | + + + + + Care Team Providers + +------+ + | Care Agriculture Mechanic Name | Role | Phone | + +------+ + PCP | Unavailable | + +------+ + Encounter Details +--------+ + + + + | Date | Type | Department | Care Team | Description | +--------+ + + + + | 02/18/ | Respiratory | | Other, Faculty | | | 2005 | Therapy | | [phone] | | +--------+ + + + + [...] | | | | | Y | YARD SWITCHER | | | | + + + [...] | DIAGNOSTICS - | [address] | [address] | | | PULMONARY FUNCTION | | | | + + + + + documented in this encounter Visit Diagnoses Not on filedocumented in this encounter"
--- OUTSIDE RECORDS SUMMARY | ~2019-01-28 | XMS | Encounter Summary ---
Demographics + + + | Address | [address] | | | [place] [address] | + + + | Home Phone | | + + + | Preferred Language | Unknown | + + + | Marital Status | | + + + | Anabaptist Affiliation | NON | + + + | Race | White | + + + | Ethnic Group | Not or | + + + Author + + + | Author | [facility] | + + + | Organization | [facility] | + + + | Address | Unknown | + + + | Phone | Unavailable | + + + Support + + + + + | Name | Relationship | Address | Phone | + + + + + | Yanni Antoine | ECON | [address] | | | | | [id number] | | | | | [address] | | + + + + + Care Team Providers + +------+ + | Care Carpet Tile Layer Name | Role | Phone | [...] [address] | | | | | [facility] Mailcode: | [address] | | | | | [address] [place] | [place] | | | | | [address] | [address] | | | | | [phone] | [phone] | | | | | | | [...] PDT | + +---------+--------+ + + | [id number] | Lab | Routin | | 02/09/2006 [...] | | + +---------+ + + | [facility] | | | | [...] | + + + + + | [facility] | [address] | [place] [address] | | | PATHOLOGY | [address] | | | + + + + + | [facility] DE[facility] OF | [address] | [place] [address] | | | PATHOLOGY | [address] [...] | | | | | performed by [facility] | | | | | | [facility] | | | | | | Laboratories. | | | | + + + + + + + + | Specimen | + + | | + + + + + + + | Performing | Address | City/State/Zipcode | Phone Number | | Organization | | | | + + + + + | [facility] | [address] | [place] [address] | | | LABORATORY | | | [...] | | + +---------+ + + | [facility] | | | | [...] + + + | [facility] | [address] | [place] [address] | | | LAB-MICRO | | | [...] | + + + + + | [facility] | [address] | [place] [address] | | | LAB-MICRO | | | [...] | | + +---------+ + + | [facility] DE[facility] OF | | | | [...] DEPARTMENT OF | [address] | [place] [address] | | | PATHOLOGY | [address] | | | + + + + + | [facility] DEPARTMENT OF | [address] | [place] [address] | | | PATHOLOGY | [address] [...] DEPARTMENT OF | [address] | [place] [address] | | | PATHOLOGY | [address] | | | + + + + + | [facility] DEPARTMENT OF | [address] | [place] [address] | | | PATHOLOGY | [address] [...] | + + + + + | [facility] | [address] | [place] [address] | | | PATHOLOGY | [address] | | | + + + + + | [facility] | [address] [place] [address] [address] | [place] [address] | | | PATHOLOGY | [address] [...] | + + + + + | [facility] | [facility] | [place] [address] | | | PATHOLOGY | [address] | | | + + + + + | [facility] | [address] [place] [address] | [place] [address] | | | PATHOLOGY | [address] [...] DEPARTMENT OF | [address] | [place] [address] | | | PATHOLOGY | [address] | | | + + + + + | [facility] DEPARTMENT OF | [address] | [place] [address] | | | PATHOLOGY | [address] [...] | | | | | | [facility] | | | | | | Laboratory. | | | | + + + + + + + + | Specimen | + + | | + + + + + + + | Performing | Address | City/State/Zipcode | Phone Number | | Organization | | | | + + + + + | [facility] | [address] | [place] [address] | | | LAB-MICRO | | | [...] | | | | | | [facility] | | | | | | Laboratory. | | | | + + + + + + + + | Specimen | + + | | + + + + + + + | Performing | Address | City/State/Zipcode | Phone Number | | Organization | | | | + + + + + | [facility] | [address] | [place] [address] | | | LAB-MICRO | | | [...] | + + + + + | [facility] | [address] | [place] [address] | | | PATHOLOGY | [address] | | | + + + + + | [facility] | [address] | [place] [address] | | | PATHOLOGY | [address] [...] | | | | | | [facility] | | | | | | Laboratories. | | | | + + + + + + + + | Specimen | + + | | + + + + + + + | Performing | Address | City/State/Zipcode | Phone Number | | Organization | | | | + + + + + | [facility] | [address] | [place] [address] | | | LABORATORY | | | [...] | + + + + + | [facility] | [address] | [place] [address] | | | PATHOLOGY | [address] | | | + + + + + | [facility] DE[facility] | [address] | [place] [address] | | | PATHOLOGY | [address] [...] | + + + + + | [facility] DE[facility] | [address] | [place] [address] | | | PATHOLOGY | [address] | | | + + + + + | [facility] DE[facility] OF | [address] | [place] [address] | | | PATHOLOGY | [address] [...] DEPARTMENT OF | [address] | [place] [address] | | | PATHOLOGY | [address] | | | + + + + + | [facility] DE[facility] OF | [address] | [place] [address] | | | PATHOLOGY | [address] | | | + + + + + MAGNESIUM, PLASMA (03/07/2006 6:35 AM PDT) + +-------+ + + + | Component | Value | Ref Range | Performed | Pathologist | | | | | At | Signature | + +-------+ + + + | MAGNESIUM,P | 2.3 | 1.8 - 2.5 mg/dL | [facility] | | | LASMA | | [...] | + + + + + | [facility] | [address] | [place] [address] | | | PATHOLOGY | [address] | | | + + + + + | [facility] | [facility] | [place] [address] | | | PATHOLOGY | [address] [...] | + + + + + | [facility] | [address] | [place] [address] | | | PATHOLOGY | [address] | | | + + + + + | [facility] DE[facility] OF | [address] | [place] [address] | | | PATHOLOGY | [address] [...] | + + + + + | [facility] | [address] | [place] [address] | | | LAB-MICRO | | | [...] | | | | | | [facility] | | | | | | Laboratory. | | | | + + + + + + + + | Specimen | + + | | + + + + + + + | Performing | Address | City/State/Zipcode | Phone Number | | Organization | | | | + + + + + | [facility] | [address] | [place] [address] | | | LAB-MICRO | | | [...] + + + | STOOL DATE | [id number] | | | | | COLLECTION | [...] + + + | [facility] | [address] | [place] [address] | | | LAB-MICRO | | | [...] DEPARTMENT OF | [address] | [place] [address] | | | PATHOLOGY | [address] | | | + + + + + | [facility] DEPARTMENT OF | [address] | [place] [address] | | | PATHOLOGY | [address] [...] DEPARTMENT OF | [address] | [place] [address] | | | PATHOLOGY | [address] | | | + + + + + | [facility] DEPARTMENT OF | [address] | [place] [address] | | | PATHOLOGY | [address] [...] | + + + + + | [facility] | [address] | [place] [address] | | | PATHOLOGY | [address] | | | + + + + + | [facility] | [facility] [address] | [place] [address] | | | PATHOLOGY | [address] [...] | + + + + + | [facility] | [address] [place] [address] [address] | [place] [address] | | | PATHOLOGY | [address] | | | + + + + + | [facility] | [address] [place] [address] [address] | [place] [address] | | | PATHOLOGY | [address] [...] DEPARTMENT OF | [address] | [place] [address] | | | PATHOLOGY | [address] | | | + + + + + | [facility] DEPARTMENT OF | [address] | [place] [address] | | | PATHOLOGY | [address] [...] | + + + + + | [facility] | [address] | [place] [address] | | | PATHOLOGY | [address] | | | + + + + + | [facility] | [address] | [place] [address] | | | PATHOLOGY | [address] [...] DEPARTMENT OF | [address] | [place] [address] | | | PATHOLOGY | [address] | | | + + + + + | [facility] DEPARTMENT OF | [address] | [place] [address] | | | PATHOLOGY | [address] [...] DEPARTMENT OF | [address] | [place] [address] | | | PATHOLOGY | [address] | | | + + + + + | [facility] DEPARTMENT | [address] | [place] [address] | | | PATHOLOGY | [address] [...] DEPARTMENT OF | [address] | [place] [address] | | | PATHOLOGY | [address] | | | + + + + + | [facility] DEPARTMENT OF | [address] | [place] [address] | | | PATHOLOGY | [address] [...] | + + + + + | [facility] | [facility] | [place] [address] | | | PATHOLOGY | [address] | | | + + + + + | [facility] DE[facility] | [address] | [place] [address] | | | PATHOLOGY | [address] [...] | + + + + + | [facility] DE[facility] OF | [address] | [place] [address] | | | PATHOLOGY | [address] | | | + + + + + | [facility] DEPARTMENT OF | [address] | [place] [address] | | | PATHOLOGY | [address] [...] | + + + + + | [facility] | [address] | [place] [address] | | | PATHOLOGY | [address] | | | + + + + + | [facility] | [address] | [place] [address] | | | PATHOLOGY | [address] [...] | + + + + + | [facility] | [address] | [place] [address] | | | PATHOLOGY | [address] | | | + + + + + | [facility] | [address] | [place] [address] | | | PATHOLOGY | [address] [...] DEPARTMENT OF | [address] | [place] [address] | | | PATHOLOGY | [address] | | | + + + + + | [facility] DE[facility] | [address] | [place] [address] | | | PATHOLOGY | [address] | | | + + + + + MAGNESIUM, PLASMA (02/25/2006 6:36 AM PDT) + +-------+ + + + | Component | Value | Ref Range | Performed | Pathologist | | | | | At | Signature | + +-------+ + + + | MAGNESIUM,P | 2.2 | 1.8 - 2.5 mg/dL | [facility] | | | LASMA | | [...] | + + + + + | [facility] DE[facility] OF | [address] | [place] [address] | | | PATHOLOGY | [address] | | | + + + + + | [facility] | [address] | [place] [address] | | | PATHOLOGY | [address] [...] | + + + + + | [facility] DE[facility] | [facility] | [place] [address] | | | PATHOLOGY | [address] | | | + + + + + | [facility] DEPARTMENT OF | [facility] | [place] [address] | | | PATHOLOGY | [address] [...] | + + + + + | [facility] DE[facility] OF | [address] | [place] [address] | | | PATHOLOGY | [address] | | | + + + + + | [facility]MENT OF | [address] | [place] [address] | | | PATHOLOGY | [address] [...] OF | [address] | [place] [address] | | | PATHOLOGY | [address] | | | + + + + + | [facility] DEPARTMENT OF | [address] | [place] [address] | | | PATHOLOGY | [address] [...] | + + + + + | [facility] | [address] | [place] [address] | | | PATHOLOGY | [address] | | | + + + + + | [facility] | [address] | [place] [address] | | | PATHOLOGY | [address] | | | + + + + + PHOSPHORUS, PLASMA (02/23/2006 9:05 AM PDT) + +-------+ + + + | Component | Value | Ref Range | Performed | Pathologist | | | | | At | Signature | + +-------+ + + + | PHOSPHORUS, | 2.8 | 2.4 - 4.7 mg/dL | [facility] | | | PLASMA | | [...] | + + + + + | [facility] DE[facility] OF | [address] | [place] [address] | | | PATHOLOGY | [address] | | | + + + + + | [facility]PARTMENT OF | [address] | [place] [address] | | | PATHOLOGY | [address] [...] DEPARTMENT OF | [address] | [place] [address] | | | PATHOLOGY | [address] | | | + + + + + | [facility] DEPARTMENT OF | [address] | [place] [address] | | | PATHOLOGY | [address] [...] DEPARTMENT OF | [address] | [place] [address] | | | PATHOLOGY | [address] | | | + + + + + | [facility] DEPARTMENT OF | [address] | [place] [address] | | | PATHOLOGY | [address] [...] | + + + + + | [facility] DE[facility] OF | [address] | [place] [address] | | | PATHOLOGY | [address] | | | + + + + + | [facility] DE[facility] OF | [address] | [place] [address] | | | PATHOLOGY | [address] [...] DEPARTMENT OF | [address] | [place] [address] | | | PATHOLOGY | [address] | | | + + + + + | [facility] DEPARTMENT OF | [address] | [place] [address] | | | PATHOLOGY | [address] [...] DEPARTMENT OF | [address] | [place] [address] | | | PATHOLOGY | [address] | | | + + + + + | [facility] DE[facility] | [address] | [place] [address] | | | PATHOLOGY | [address] [...] | + + + + + | [facility] | [address] | [place] [address] | | | PATHOLOGY | [address] | | | + + + + + | [facility] | [facility] [address] | [place] [address] | | | PATHOLOGY | [address] [...] DEPARTMENT OF | [address] | [place] [address] | | | PATHOLOGY | [address] | | | + + + + + | [facility] | [address] | [place] [address] | | | PATHOLOGY | [address] [...] DEPARTMENT OF | [address] | [place] [address] | | | PATHOLOGY | [address] | | | + + + + + | [facility] DEPARTMENT OF | [address] | [place] [address] | | | PATHOLOGY | [address] [...] | + + + + + | [facility] DE[facility] | [address] | [place] [address] | | | PATHOLOGY | [address] | | | + + + + + | [facility] DE[facility] | [facility] | [place] [address] | | | PATHOLOGY | [address] [...] | + + + + + | [facility] DE[facility] OF | [address] | [place] [address] | | | PATHOLOGY | [address] | | | + + + + + | [facility]MENT OF | [address] | [place] [address] | | | PATHOLOGY | [address] [...] + + | [facility] DEPARTMENT OF | [address] | [place] [address] | | | PATHOLOGY | [address] | | | + + + + + | [facility] DE[facility] | [address] | [place] [address] | | | PATHOLOGY | [address] [...] | + + + + + | [facility] | [address] | [place] [address] | | | PATHOLOGY | [address] | | | + + + + + | [facility] | [address] | [place] [address] | | | PATHOLOGY | [address] [...] | + + + + + | [facility] DE[facility] | [address] | [place] [address] | | | PATHOLOGY | [address] | | | + + + + + | [facility]PARTMENT OF | [address] | [place] [address] | | | PATHOLOGY | [address] [...] | + + + + + | [facility] DE[facility]MENT | [address] | [place] [address] | | | PATHOLOGY | [address] | | | + + + + + | [facility] DE[facility] OF | [address] | [place] [address] | | | PATHOLOGY | [address] [...] | + + + + + | [facility] | [address] | [place] [address] | | | PATHOLOGY | [address] | | | + + + + + | [facility] | [facility] | [place] [address] | | | PATHOLOGY | [address] [...] | + + + + + | [facility] | [address] | [place] [address] | | | PATHOLOGY | [address] | | | + + + + + | [facility] | [facility] | [place] [address] | | | PATHOLOGY | [address] [...] DEPARTMENT OF | [address] | [place] [address] | | | PATHOLOGY | [address] | | | + + + + + | [facility] | [address] | [place] [address] | | | PATHOLOGY | [address] [...] DEPARTMENT OF | [address] | [place] [address] | | | PATHOLOGY | [address] | | | + + + + + | [facility] | [address] | [place] [address] | | | PATHOLOGY | [address] [...] | | | | Test performed at [facility] | | | | | | [facility] | | | | | | Laboratory. | | | | + + + + + + + + | Specimen | + + | | + + + + + + + | Performing | Address | City/State/Zipcode | Phone Number | | Organization | | | | + + + + + | [facility] | [address] | [place] [address] | | | LAB-MICRO | | | [...] | | | | | performed at [facility] | | | | | | [facility] | | | | | | Laboratory. | | | | + + + + + + + + | Specimen | + + | | + + + + + + + | Performing | Address | City/State/Zipcode | Phone Number | | Organization | | | | + + + + + | [facility] | [address] | [place] [address] | | | LAB-MICRO | | | [...] | | | | | performed at [facility] | | | | | | [facility] | | | | | | Laboratory. | | | | + + + + + + + + | Specimen | + + | | + + + + + + + | Performing | Address | City/State/Zipcode | Phone Number | | Organization | | | | + + + + + | [facility] | [address] | [place] [address] | | | LAB-MICRO | | | [...] | | | | | performed at [facility] | | | | | | [facility] | | | | | | Laboratory. | | | | + + + + + + + + | Specimen | + + | | + + + + + + + | Performing | Address | City/State/Zipcode | Phone Number | | Organization | | | | + + + + + | [facility] | [address] | [place] [address] | | | LAB-MICRO | | | [...] at | | | | | | [facility] | | | | | | [facility]. | | | | + + + + + + + + | Specimen | + + | | + + + + + + + | Performing | Address | City/State/Zipcode | Phone Number | | Organization | | | | + + + + + | [facility] | [address] | [place] [address] | | | LAB-MICRO | | | [...] | + + + + + | [facility] | [address] | [place] [address] | | | PATHOLOGY | [address] | | | + + + + + | [facility] DE[facility] | [address] | [place] [address] | | | PATHOLOGY | [address] [...] | + + + + + | [facility] DE[facility] | [address] | [place] [address] | | | PATHOLOGY | [address] | | | + + + + + | [facility] DEPARTMENT OF | [address] | [place] [address] | | | PATHOLOGY | [address] [...] | + + + + + | [facility] DE[facility] | [address] | [place] [address] | | | PATHOLOGY | [address] | | | + + + + + | [facility] DE[facility] | [address] | [place] [address] | | | PATHOLOGY | [address] | | | + + + + + BASIC METABOLIC SET (02/19/2006 2:30 AM PDT) + +---------+ + + + | Component | Value | Ref Range | Performed | Pathologist | | | | | At | Signature | + +---------+ + + + | GLUCOSE, | 150 (H) | 65 - 110 mg/dL | [facility] | | | PLASMA | | [...] + | [facility] DEPARTMENT OF | [address] | [place] [address] | | | PATHOLOGY | [address] | | | + + + + + | [facility] DEPARTMENT OF | [address] | [place] [address] | | | PATHOLOGY | [address] [...] | + + + + + | [facility] DE[facility] OF | [address] | [place] [address] | | | PATHOLOGY | [address] | | | + + + + + | [facility] DE[facility] OF | [address] | [place] [address] | | | PATHOLOGY | [address] [...] | + + + + + | [facility] | [address] | [place] [address] | | | PATHOLOGY | [address] | | | + + + + + | [facility] | [address] | [place] [address] | | | PATHOLOGY | [address] [...] | + + + + + | [facility] DE[facility] | [address] | [place] [address] | | | PATHOLOGY | [address] | | | + + + + + | [facility] | [address] | [place] [address] | | | PATHOLOGY | [address] [...] DEPARTMENT OF | [address] | [place] [address] | | | PATHOLOGY | [address] | | | + + + + + | [facility] DEPARTMENT OF | [address] | [place] [address] | | | PATHOLOGY | [address] [...] | + + + + + | [facility] | [address] | [place] [address] | | | PATHOLOGY | [address] | | | + + + + + | [facility] | [address] | [place] [address] | | | PATHOLOGY | [address] [...] | | | | | performed at [facility] | | | | | | [facility] | | | | | | Laboratory. | | | | + + + + + + + + | Specimen | + + | | + + + + + + + | Performing | Address | City/State/Zipcode | Phone Number | | Organization | | | | + + + + + | [facility] | [address] | [place] [address] | | | LAB-MICRO | | | [...] | | + +---------+ + + | [facility] DE[facility] | | | | [...] | + + + + + | [facility] DE[facility] | [address] | [place] [address] | | | PATHOLOGY | [address] | | | + + + + + | [facility] DE[facility] OF | [address] | [place] [address] | | | PATHOLOGY | [address] [...] DEPARTMENT OF | [address] | [place] [address] | | | PATHOLOGY | [address] | | | + + + + + | [facility] DE[facility] | [address] | [place] [address] | | | PATHOLOGY | [address] | | | + + + + + MAGNESIUM, PLASMA (02/17/2006 1:39 AM PDT) + +-------+ + + + | Component | Value | Ref Range | Performed | Pathologist | | | | | At | Signature | + +-------+ + + + | MAGNESIUM,P | 2.2 | 1.8 - 2.5 mg/dL | [facility] | | | [facility] | | [...] | + + + + + | [facility] | [address] | [place] [address] | | | PATHOLOGY | [address] | | | + + + + + | [facility] | [address] | [place] [address] | | | PATHOLOGY | [address] [...] | + + + + + | [facility] | [address] | [place] [address] | | | PATHOLOGY | [address] | | | + + + + + | [facility] | [address] [place] [address] | [place] [address] | | | PATHOLOGY | [address] [...] | + + + + + | [facility] | [address] | [place] [address] | | | PATHOLOGY | [address] | | | + + + + + | [facility] | [address] | [place] [address] | | | PATHOLOGY | [address] [...] | | + +---------+ + + | [facility] | | | | [...] + | [facility] OF | [address] | [place] [address] | | | PATHOLOGY | [address] | | | + + + + + | [facility]MENT OF | [address] | [place] [address] | | | PATHOLOGY | [address] [...] | + + + + + | [facility] | [address] | [place] [address] | | | PATHOLOGY | [address] | | | + + + + + | [facility] | [address] | [place] [address] | | | PATHOLOGY | [address] [...] DEPARTMENT OF | [address] | [place] [address] | | | PATHOLOGY | [address] | | | + + + + + | [facility] DE[facility]MENT OF | [address] | [place] [address] | | | PATHOLOGY | [address] [...] | + + + + + | [facility] | [address] | [place] [address] | | | PATHOLOGY | [address] | | | + + + + + | [facility] | [address] | [place] [address] | | | PATHOLOGY | [address] [...] | + + + + + | [facility] | [facility] | [place] [address] | | | PATHOLOGY | [address] | | | + + + + + | [facility] | [facility] | [place] [address] | | | PATHOLOGY | [address] [...] | + + + + + | [facility] | [address] | [place] [address] | | | PATHOLOGY | [address] | | | + + + + + | [facility] | [facility] | [place] [address] | | | PATHOLOGY | [address] [...] DEPARTMENT OF | [address] | [place] [address] | | | PATHOLOGY | [address] | | | + + + + + | [facility] DEPARTMENT OF | [address] | [place] [address] | | | PATHOLOGY | [address] [...] | + + + + + | [facility] | [address] | [facility] [place] [address] | | | PATHOLOGY | [address] | | | + + + + + | [facility] | [address] | [place] [place] [address] | | | PATHOLOGY | [address] [...] | + + + + + | [facility] | [address] | [place] [address] | | | PATHOLOGY | [address] | | | + + + + + | [facility] | [facility] | [place] [address] | | | PATHOLOGY | [address] | | | + + + [...] + + + | [facility] | [address] | [place] [address] | | | LAB-MICRO | | | [...] | | | | | performed at [facility] | | | | | | [facility] | | | | | | Laboratory. | | | | + + + + + + + + | Specimen | + + | | + + + + + + + | Performing | Address | City/State/Zipcode | Phone Number | | Organization | | | | + + + + + | [facility] | [address] | [place] [address] | | | LAB-MICRO | | | [...] | + + + + + | [facility] | [address] | [place] [address] | | | PATHOLOGY | [address] | | | + + + + + | [facility] | [address] [place] [address] | [place] [address] | | | PATHOLOGY | [address] [...] | + + + + + | [facility] | [address] | [place] [address] | | | PATHOLOGY | [address] | | | + + + + + | [facility] | [address] | [place] [address] | | | PATHOLOGY | [address] [...] | | | | Test performed at [facility] | | | | | | [facility] | | | | | | Laboratory. | | | | + + + + + + + + | Specimen | + + | | + + + + + + + | Performing | Address | City/State/Zipcode | Phone Number | | Organization | | | | + + + + + | [facility] | [address] | [place] [address] | | | LAB-MICRO | | | | + + + + + CULT, BLOOD OCLT & BRIAN (02/14/2006 7:30 AM PDT) + [...] | | | | | performed at [facility] | | | | | | [facility] | | | | | | Laboratory. | | | | + + + + + + + + | Specimen | + + | | + + + + + + + | Performing | Address | City/State/Zipcode | Phone Number | | Organization | | | | + + + + + | [facility] | [address] | [place] [address] | | | LAB-MICRO | | | [...] | | | | | performed at [facility] | | | | | | [facility] | | | | | | Laboratory. | | | | + + + + + + + + | Specimen | + + | | + + + + + + + | Performing | Address | City/State/Zipcode | Phone Number | | Organization | | | | + + + + + | [facility] | [address] | [place] [address] | | | LAB-MICRO | | | [...] | + + + + + | [facility] | [address] | [place] [address] | | | PATHOLOGY | [address] | | | + + + + + | [facility] | [address] | [place] [address] | | | PATHOLOGY | [address] [...] + | [facility] | [address] | [place] [address] | | | PATHOLOGY | [address] | | | + + + + + | [facility] | [address] | [place] [address] | | | PATHOLOGY | [address] | | | + + + + + MAGNESIUM, PLASMA (02/14/2006 2:05 AM PDT) + +-------+ + + + | Component | Value | Ref Range | Performed | Pathologist | | | | | At | Signature | + +-------+ + + + | MAGNESIUM,P | 2.2 | 1.8 - 2.5 mg/dL | [facility] | | | LASMA | | | [...] | + + + + + | [facility] | [address] | [place] [address] | | | PATHOLOGY | [address] | | | + + + + + | [facility] | [address] | [place] [address] | | | PATHOLOGY | [address] [...] DEPARTMENT OF | [address] | [place] [address] | | | PATHOLOGY | [address] | | | + + + + + | [facility] DEPARTMENT OF | [address] | [place] [address] | | | PATHOLOGY | [address] [...] DEPARTMENT OF | [address] | [place] [address] | | | PATHOLOGY | [address] | | | + + + + + | [facility] DEPARTMENT OF | [address] | [place] [address] | | | PATHOLOGY | [address] [...] | + + + + + | [facility] | [address] | [place] [address] | | | PATHOLOGY | [address] | | | + + + + + | [facility] | [facility] | [place] [address] | | | PATHOLOGY | [address] [...] | + + + + + | [facility] | [facility] | [place] [address] | | | PATHOLOGY | [address] | | | + + + + + | [facility] | [facility] | [place] [address] | | | PATHOLOGY | [address] [...] | + + + + + | [facility] | [address] | [place] [address] | | | PATHOLOGY | [address] | | | + + + + + | [facility] | [address] | [place] [address] | | | PATHOLOGY | [address] [...] | + + + + + | [facility] | [address] | [place] [address] | | | PATHOLOGY | [address] | | | + + + + + | [facility] | [address] | [place] [address] | | | PATHOLOGY | [address] [...] | + + + + + | [facility] | [address] | [place] [address] | | | PATHOLOGY | [address] | | | + + + + + | [facility] | [address] | [place] [address] | | | PATHOLOGY | [address] [...] | + + + + + | [facility] | [address] | [place] [address] | | | PATHOLOGY | [address] | | | + + + + + | [facility] | [address] | [place] [address] | | | PATHOLOGY | [address] [...] | + + + + + | [facility] | [address] | [place] [address] | | | PATHOLOGY | [address] | | | + + + + + | [facility] | [address] | [place] [address] | | | PATHOLOGY | [address] [...] DEPARTMENT OF | [address] | [place] [address] | | | PATHOLOGY | [address] | | | + + + + + | [facility] DE[facility]MENT OF | [address] | [place] [address] | | | PATHOLOGY | [address] [...] | + + + + + | [facility] | [address] | [place] [address] | | | PATHOLOGY | [address] | | | + + + + + | [facility] | [address] | [place] [address] | | | PATHOLOGY | [address] [...] | | | | | performed at [facility] | | | | | | [facility] | | | | | | Laboratory. | | | | + + + + + + + + | Specimen | + + | | + + + + + + + | Performing | Address | City/State/Zipcode | Phone Number | | Organization | | | | + + + + + | [facility] | [address] | [place] [address] | | | LAB-MICRO | | | [...] | | | | | performed at [facility] | | | | | | [facility] | | | | | | Laboratory. | | | | + + + + + + + + | Specimen | + + | | + + + + + + + | Performing | Address | City/State/Zipcode | Phone Number | | Organization | | | | + + + + + | [facility] | [address] | [place] [address] | | | LAB-MICRO | | | [...] | | | | | performed at [facility] | | | | | | [facility] | | | | | | Laboratory. | | | | + + + + + + + + | Specimen | + + | | + + + + + + + | Performing | Address | City/State/Zipcode | Phone Number | | Organization | | | | + + + + + | [facility] | [address] | [place] [address] | | | LAB-MICRO | | | [...] | | | | | performed at [facility] | | | | | | [facility] | | | | | | Laboratory. | | | | + + + + + + + + | Specimen | + + | | + + + + + + + | Performing | Address | City/State/Zipcode | Phone Number | | Organization | | | | + + + + + | [facility] | [address] | [place] [address] | | | LAB-MICRO | | | [...] | + + + + + | [facility] | [address] | [place] [address] | | | PATHOLOGY | [address] | | | + + + + + | [facility] | [address] | [place] [address] | | | PATHOLOGY | [address] [...] | + + + + + | [facility] | [address] | [place] [address] | | | PATHOLOGY | [address] | | | + + + + + | [facility] | [address] | [place] [address] | | | PATHOLOGY | [address] [...] | + + + + + | [facility] DEPARTMENT OF | [address] | [place] [address] | | | PATHOLOGY | [address] | | | + + + + + | [facility] DEPARTMENT OF | [address] | [place] [address] | | | PATHOLOGY | [address] [...] DEPARTMENT OF | [address] | [place] [address] | | | PATHOLOGY | [address] | | | + + + + + | [facility] DEPARTMENT OF | [address] | [facility] [place] [address] | | | PATHOLOGY | [address] [...] + + | [facility] | [facility] | [place] [address] | | | PATHOLOGY | [address] | | | + + + + + | [facility] DEPARTMENT OF | [facility] | [place] [address] | | | PATHOLOGY | [address] [...] DEPARTMENT OF | [address] | [place] [address] | | | PATHOLOGY | [address] | | | + + + + + | [facility] | [address] | [place] [address] | | | PATHOLOGY | [address] [...] | | + +---------+ + + | [facility] | | | | [...] | | | | | | the [id number] | | | | | | process. [...] | | + +---------+ + + | [facility] | | | | [...] | | + +---------+ + + | [facility] | | | | [...] | + + + + + | [facility] | [address] | [place] [address] | | | PATHOLOGY | [address] | | | + + + + + | [facility] | [address] | [place] [address] | | | PATHOLOGY | [address] [...] | + + + + + | [facility] | [address] | [place] [address] | | | PATHOLOGY | [address] | | | + + + + + | [facility] | [address] | [place] [address] | | | PATHOLOGY | [address] [...] | + + + + + | [facility] | [address] | [place] [address] | | | PATHOLOGY | [address] | | | + + + + + | [facility] DEPARTMENT OF | [address] | [place] [address] | | | PATHOLOGY | [address] [...] | + + + + + | [facility] | [facility] | [place] [address] | | | PATHOLOGY | [address] | | | + + + + + | [facility] | [address] | [place] [address] | | | PATHOLOGY | [address] [...] | + + + + + | [facility] | [address] | [place] [address] | | | PATHOLOGY | [address] | | | + + + + + | [facility] | [address] | [place] [address] | | | PATHOLOGY | [address] [...] [facility] | | | | | | [facility] | | | | | | Laboratories. | | | | + + + + + + + + | Specimen | + + | | + + + + + + + | Performing | Address | City/State/Zipcode | Phone Number | | Organization | | | | + + + + + | [facility] | [address] | [place] [address] | | | LABORATORY | | | [...] at | | | | | | [facility] | | | | | | [facility]. | | | | + + + + + + + + | Specimen | + + | | + + + + + + + | Performing | Address | City/State/Zipcode | Phone Number | | Organization | | | | + + + + + | [facility] | [address] | [place] [address] | | | LAB-MICRO | | | [...] | | | | | performed at [facility] | | | | | | [facility] | | | | | | Laboratory. | | | | + + + + + + + + | Specimen | + + | | + + + + + + + | Performing | Address | City/State/Zipcode | Phone Number | | Organization | | | | + + + + + | [facility] | [address] | [place] [address] | | | LAB-MICRO | | | [...] | | | | | performed at [facility] | | | | | | [facility] | | | | | | Laboratory. | | | | + + + + + + + + | Specimen | + + | | + + + + + + + | Performing | Address | City/State/Zipcode | Phone Number | | Organization | | | | + + + + + | [facility] | [address] | [place] [address] | | | LAB-MICRO | | | [...] | | | | Test performed at [facility] | | | | | | [facility] | | | | | | Laboratory. | | | | + + + + + + + + | Specimen | + + | | + + + + + + + | Performing | Address | City/State/Zipcode | Phone Number | | Organization | | | | + + + + + | [facility] | [address] | [place] [address] | | | LAB-MICRO | | | [...] | Performing | Address | City/State/[facility] | Phone Number | | Organization | | | | + +---------+ + + | [facility] | | | | [...] opacities | | | | | | patient accounting representative of | | | | | [...] | + + + + + | [facility] | [facility] | [place] [address] | | | PATHOLOGY | [address] | | | + + + + + | [facility] | [address] | [place] [address] | | | PATHOLOGY | [address] [...] | + + + + + | [facility] | [address] | [place] [address] | | | PATHOLOGY | [address] | | | + + + + + | [facility] | [address] | [place] [address] | | | PATHOLOGY | [address] [...] | + + + + + | [facility] | [address] | [place] [address] | | | PATHOLOGY | [address] | | | + + + + + | [facility] | [address] | [place] [address] | | | PATHOLOGY | [address] [...] + | [facility] DEPARTMENT OF | [address] | [place] [address] | | | PATHOLOGY | [address] | | | + + + + + | [facility] | [address] | [place] [address] | | | PATHOLOGY | [address] [...] DEPARTMENT OF | [address] | [place] [address] | | | PATHOLOGY | [address] | | | + + + + + | [facility] | [address] | [place] [address] | | | PATHOLOGY | [address] [...] | + + + + + | [facility] | [facility] | [place] [address] | | | PATHOLOGY | [address] | | | + + + + + | [facility] | [address] [place] [address] | [place] [address] | | | PATHOLOGY | [address] [...] | + + + + + | [facility] | [address] | [place] [address] | | | PATHOLOGY | [address] | | | + + + + + | [facility] | [address] | [place] [address] | | | PATHOLOGY | [address] [...] DEPARTMENT OF | [address] | [place] [address] | | | PATHOLOGY | [address] | | | + + + + + | [facility] | [address] | [place] [address] | | | PATHOLOGY | [address] | | | + + + + + MAGNESIUM, PLASMA (02/09/2006 11:38 PM PDT) + +---------+ + + + | Component | Value | Ref Range | Performed | Pathologist | | | | | At | Signature | + +---------+ + + + | MAGNESIUM,P | 1.5 (L) | 1.8 - 2.5 mg/dL | [facility] | | | L[facility] | | [...] | + + + + + | [facility] | [address] | [place] [address] | | | PATHOLOGY | [address] | | | + + + + + | [facility] | [facility] | [place] [address] | | | PATHOLOGY | [address] [...] DEPARTMENT OF | [address] | [place] [address] | | | PATHOLOGY | [address] | | | + + + + + | [facility] | [address] | [place] [address] | | | PATHOLOGY | [address] [...] | + + + + + | [facility] | [address] | [place] [address] | | | PATHOLOGY | [address] | | | + + + + + | [facility] | [address] | [place] [address] | | | PATHOLOGY | [address] [...] | | | + +---------+ + + [id number] PROCESS (02/09/2006 9:16 PM PDT) + + [...] | + + + + + | [facility] | [address] | [place] [address] | | | PATHOLOGY | [address] | | | + + + + + | [facility] | [address] | [place] [address] | | | PATHOLOGY | [address] [...] | + + + + + | [facility] | [address] | [place] [address] | | | PATHOLOGY | [address] | | | + + + + + | [facility] | [address] | [place] [address] | | | PATHOLOGY | [address] [...] | + + + + + | [facility] | [address] | [place] [address] | | | PATHOLOGY | [address] | | | + + + + + | [facility] | [address] | [place] [address] | | | PATHOLOGY | [address] [...] | + + + + + | [facility] DEPARTMENT OF | [address] | [place] [address] | | | PATHOLOGY | [address] | | | + + + + + | [facility] DEPARTMENT OF | [address] | [place] [address] | | | PATHOLOGY | [address] [...] DEPARTMENT OF | [address] | [place] [address] | | | PATHOLOGY | [address] | | | + + + + + | [facility] DEPARTMENT | [address] | [place] [address] | | | PATHOLOGY | [address] [...] | + + + + + | [facility] DEPARTMENT OF | [address] | [place] [address] | | | PATHOLOGY | [address] | | | + + + + + | [facility] DEPARTMENT OF | [address] | [place] [address] | | | PATHOLOGY | [address] [...] | + + + + + | [facility] | [address] | [place] [address] | | | PATHOLOGY | [address] | | | + + + + + | [facility] | [address] | [place] [address] | | | PATHOLOGY | [address] | | | + + + + + documented in this encounter Visit Diagnoses Not on filedocumented in this encounter"
--- OUTSIDE RECORDS SUMMARY | ~2019-01-28 | XMS | Encounter Summary ---
Demographics + + + | Address | [address] | | | [place] [address] | + + + | Home Phone [...] [place], [place] | | | | | [address] | | + + + + + Care Team Providers + +------+ + | Care Plastic Welder Name | Role | Phone | + +------+ + PCP | Unavailable | + +------+ + Encounter Details +--------+ + + + + | Date | Type | Department | Care Team | Description | +--------+ + + + + | 03/11/ | Respiratory | | Other, Faculty | | | 2005 | Therapy | | [phone] | | +--------+ + + + + [...] | | | | | Y | MOTORCYCLE DELIVERER | | | | + + + [...] [facility] | [address] | [place] | | | DIAGNOSTICS - | [address] | [address] | | | PULMONARY FUNCTION | | | | + + + + + documented in this encounter Visit Diagnoses Not on filedocumented in this encounter"
--- OUTSIDE RECORDS SUMMARY | ~2019-01-28 | XMS | Encounter Summary ---
Demographics + + + | Address | [address] | | | [place] [address] | + + + | Home Phone [...] [place], [place] | | | | | [address] | | + + + + + Care Team Providers + +------+ + | Care Senior Integration Architect Name | Role | Phone | + +------+ + PCP | Unavailable | + +------+ + Encounter Details +--------+ + + + + | Date | Type | Department | Care Team | Description | +--------+ + + + + | 03/13/ | Respiratory | | Other, Faculty | | | 2005 | Therapy | | [phone] | | +--------+ + + + + [...] | | GAS/HUMIDIT | OXYGEN. [facility] | | | | | Y |[facility] | | | | + + + [...] [facility] | [address] | [place], [place] | | | DIAGNOSTICS - | [address] | [phone] | | | PULMONARY FUNCTION | | | | + + + + + documented in this encounter Visit Diagnoses Not on filedocumented in this encounter"
--- OUTSIDE RECORDS SUMMARY | ~2019-01-28 | XMS | Encounter Summary ---
Demographics + + + | Address | [address] | | | [place] [address] | + + + | Home Phone | | + + + | Preferred Language | Unknown | + + + | Marital Status | | + + + | Jehovah'S Witness Affiliation | NON | + + + [...] [place], [place] | | | | | [address] | | + + + + + Care Team Providers + +------+ + | Care Cell Installer Name | Role | Phone | + +------+ + PCP | Unavailable | + +------+ + Encounter Details +--------+ + + + + | Date | Type | Department | Care Team | Description | +--------+ + + + + | 03/15/ | Respiratory | | Other, Faculty | | | 2005 | Therapy | | [phone] | | +--------+ + + + + [...] | | | | Y |Yung Boss, DUSTER TENDER | | | | + + [...] [facility] | [address] | [place], [place] | | | DIAGNOSTICS - | [address] | [address] | | | PULMONARY FUNCTION | | | | + + + + + documented in this encounter Visit Diagnoses Not on filedocumented in this encounter"
--- OUTSIDE RECORDS SUMMARY | ~2019-01-28 | XMS | Encounter Summary ---
Demographics + + + | Address | [address] | | | [place] [address] | + + + | Home Phone [...] [place], [place] | | | | | [address] | | + + + + + Care Team Providers + +------+ + | Care Stave Grader Name | Role | Phone | + +------+ + PCP | Unavailable | + +------+ + Encounter Details +--------+ + + + + | Date | Type | Department | Care Team | Description | +--------+ + + + + | 03/15/ | Respiratory | | Other, Faculty | | | 2005 | Therapy | | [phone] | | +--------+ + + + + [...] | | | | Y |Yung Boss, BUSINESS PROCESS EXPERT | | | | + + + [...] [facility] | [address] | [place], [place] | | | DIAGNOSTICS - | [address] | [address] | | | PULMONARY FUNCTION | | | | + + + + + documented in this encounter Visit Diagnoses Not on filedocumented in this encounter"
--- OUTSIDE RECORDS SUMMARY | ~2019-01-28 | XMS | Encounter Summary ---
Demographics + + + | Address | [address] | | | [place] [address] | + + + | Home Phone [...] [place], [place] | | | | | [address] | | + + + + + Care Team Providers + +------+ + | Care Sql Database Developer Name | Role | Phone | + +------+ + PCP | Unavailable | + +------+ + Encounter Details +--------+ + + + + | Date | Type | Department | Care Team | Description | +--------+ + + + + | 03/18/ | Respiratory | | Other, Faculty | | | 2005 | Therapy | | [phone] | | +--------+ + + + + [...] | | | | | Y | DESIGN CHECKER | | | | + + + [...] [facility] | [address] | [place] | | | DIAGNOSTICS - | [address] | [phone] | | | PULMONARY FUNCTION | | | | + + + + + documented in this encounter Visit Diagnoses Not on filedocumented in this encounter"
--- OUTSIDE RECORDS SUMMARY | ~2019-01-28 | XMS | Encounter Summary ---
Demographics + + + | Address | [address] | | | [place] [address] | + + + | Home Phone [...] [place], [place] | | | | | [address] | | + + + + + Care Team Providers + +------+ + | Care Repairer Cylinder Heads Name | Role | Phone | + +------+ + PCP | Unavailable | + +------+ + Encounter Details +--------+ + + + + | Date | Type | Department | Care Team | Description | +--------+ + + + + | 03/14/ | Respiratory | | Other, Faculty | | | 2005 | Therapy | | [phone] | | +--------+ + + + + [...] + | MEDICAL GAS/HUMIDITY | Routin | 03/14/2006 | | Results for this | | | e | 9:03 AM | | procedure are in the | | | | PDT | | results section. | + +--------+ + + + documented in this encounter Results MEDICAL GAS/HUMIDITY (03/14/2006 9:03 AM PDT) + + + + + + | Component | Value | Ref Range | Performed | Pathologist | | | | | At | Signature | + + + + + + | [facility] | HEATED HUMIDITY AT 24 % | | | | | GAS/HUMIDIT | OXYGEN. DYLAN GarzaP | | | | | Y |Yung Boss, EVENT SPECIALIST FOOD DEMONSTRATOR | | | | + + + [...] [facility] | [address] | [place], [place] | | | DIAGNOSTICS - | [place] | [phone] | | | PULMONARY FUNCTION | | | | + + + + + documented in this encounter Visit Diagnoses Not on filedocumented in this encounter"
--- OUTSIDE RECORDS SUMMARY | ~2019-01-28 | XMS | Encounter Summary ---
Demographics + + + | Address | [address] | | | [place] [address] | + + + | Home Phone [...] [place], [place] | | | | | [address] | | + + + + + Care Team Providers + +------+ + | Care Stud Driver Name | Role | Phone | + +------+ + PCP | Unavailable | + +------+ + Encounter Details +--------+ + + + + | Date | Type | Department | Care Team | Description | +--------+ + + + + | 03/17/ | Respiratory | | Other, Faculty | | | 2005 | Therapy | | [phone] | | +--------+ + + + + [...] | | | | Y | [facility] | | | | + + + [...] [facility] | [address] | [place], [place] | | | DIAGNOSTICS - | [place] | [phone] | | | PULMONARY FUNCTION | | | | + + + + + documented in this encounter Visit Diagnoses Not on filedocumented in this encounter"
--- OUTSIDE RECORDS SUMMARY | ~2019-01-28 | XMS | Encounter Summary ---
Demographics + + + | Address | [address] [address] | | | [place] [address] | + + + | Home Phone [...] [place], [place] | | | | | [address] | | + + + + + Care Team Providers + +------+ + | Care Assistant Store Manager Operations Name | Role | Phone | + +------+ + PCP | Unavailable | + +------+ + Encounter Details +--------+ + + + + | Date | Type | Department | Care Team | Description | +--------+ + + + + | 03/02/ | Respiratory | | Other, Faculty | | | 2005 | Therapy | | [phone] | | +--------+ + + + + [...] | | | | | Y | CASE SUPERVISOR | | | | + + [...] | DIAGNOSTICS - | [address] | [address] | | | PULMONARY FUNCTION | | | | + + + + + documented in this encounter Visit Diagnoses Not on filedocumented in this encounter"
--- OUTSIDE RECORDS SUMMARY | ~2019-01-28 | XMS | Encounter Summary ---
Demographics + + + | Address | [address] | | | [place] [address] | + + + | Home Phone [...] [place], [place] | | | | | [address] | | + + + + + Care Team Providers + +------+ + | Care Car Mover Name | Role | Phone | + +------+ + PCP | Unavailable | + +------+ + Encounter Details +--------+ + + + + | Date | Type | Department | Care Team | Description | +--------+ + + + + | 03/12/ | Respiratory | | Other, Faculty | | | 2005 | Therapy | | [phone] | | +--------+ + + + + [...] | | | | | Ángel Combs, PRODUCT SAFETY COORDINATOR | | | | + [...] [facility] | [address] | [place], [place] | | | DIAGNOSTICS - | [address] | [address] | | | PULMONARY FUNCTION | | | | + + + + + documented in this encounter Visit Diagnoses Not on filedocumented in this encounter"
--- OUTSIDE RECORDS SUMMARY | ~2019-01-28 | XMS | Encounter Summary ---
Demographics + + + | Address | [address] | | | [place] [address] | + + + | Home Phone [...] [place], [place] | | | | | [address] | | + + + + + Care Team Providers + +------+ + | Care Special Forces Weapons Sergeant Name | Role | Phone | + [...] | Transcriptions | + + | Interface, Trouble Shooting Mechanic In - 03/16/2006 2:06 AM PDT | | [id number] | | [id number] ASHLEY Peck [id number] | | | | Date: 02/13/2006 | | | | Attending Surgeon: Thai De La Garza M.D., DeepthiCRamiroS. | | | | Nitrogen Operator(s): Jazzmine Lozano MD | | | | [...] De La Garza M.D., F.A.C.S. | | returned case inspector @ quality control systems manager Service | | | | SHARA / HS | | [phone] / [id number] / [id number] / | | | | | | E: 03/11/2006 ajm | | | | | | Electronically signed by Thai De La Garza 03-15-2006 05:35:06 PM | + + documented in this encounter Visit Diagnoses Not on filedocumented in this encounter"
--- OUTSIDE RECORDS SUMMARY | ~2019-01-28 | XMS | Encounter Summary ---
Demographics + + + | Address | [address] [facility] [address] | | | [place] [address] | + + + | Home Phone [...] [place], [place] | | | | | [address] | | + + + + + Care Team Providers + +------+ + | Care Veterinary Virus Serum Inspector Name | Role | Phone | + +------+ + PCP | Unavailable | + +------+ + Encounter Details +--------+ + + + + | Date | Type | Department | Care Team | Description | +--------+ + + + + | 03/06/ | Respiratory | | Other, Faculty | | | 2005 | Therapy | | [phone] | | +--------+ + + + + [...] | | | | | | Beni, TRANSFORMER REPAIRER | | | | + + [...] + + + | [facility] | [address] | [facility] [place] | | | DIAGNOSTICS - | [address] | [address] | | | PULMONARY FUNCTION | | | | + + + + + documented in this encounter Visit Diagnoses Not on filedocumented in this encounter"
--- OUTSIDE RECORDS SUMMARY | ~2019-01-28 | XMS | Encounter Summary ---
Demographics + + + | Address | [address] | | | [place] [address] | + + + | Home Phone | | + + + | Preferred Language | Unknown | + + + | Marital Status | | + + + | Congregation Affiliation | NON | + + + [...] [place], [place] | | | | | [address] | | + + + + + Care Team Providers + +------+ + | Care Commercial Leasing Manager Name | Role | Phone | + +------+ + PCP | Unavailable | + +------+ + Encounter Details +--------+ + + + + | Date | Type | Department | Care Team | Description | +--------+ + + + + | 03/10/ | Respiratory | | Other, Faculty | | | 2005 | Therapy | | [phone] | | +--------+ + + + + [...] | | | | | Y | HISTOTECHNICIAN | | | | + + + [...] | DIAGNOSTICS - | [address] | [address] | | | PULMONARY FUNCTION | | | | + + + + + documented in this encounter Visit Diagnoses Not on filedocumented in this encounter"
--- OUTSIDE RECORDS SUMMARY | ~2019-01-28 | XMS | Encounter Summary ---
Demographics + + + | Address | [address] [facility] | | | [place] [address] | + + + | Home Phone [...] [place], [place] | | | | | [address] | | + + + + + Care Team Providers + +------+ + | Care Pneumatic Tester Name | Role | Phone | + +------+ + PCP | Unavailable | + +------+ + Encounter Details +--------+ + + + + | Date | Type | Department | Care Team | Description | +--------+ + + + + | 02/21/ | Respiratory | | Other, Faculty | | | 2005 | Therapy | | [phone] | | +--------+ + + + + [...] for this | | | e | 2:09 PM | | procedure are in the | | | | PDT | | results section. | + +--------+ + + + documented in this encounter Results MEDICAL GAS/HUMIDITY (02/21/2006 2:09 PM PDT) + + + + + + | Component | Value | Ref Range | Performed | Pathologist | | | | | At | Signature | + + + + + + | [facility] | HEATED HUMIDITY AT 24 % | | | | | GAS/HUMIDIT | OXYGEN. Ángel Combs, RAG BOILER | | | | | Y |Ángel Combs, RAG BOILER | | | | + + + [...] [facility] | [address] | [place], [place] | | | DIAGNOSTICS - | [address] | [address] | | | PULMONARY FUNCTION | | | | + + + + + documented in this encounter Visit Diagnoses Not on filedocumented in this encounter"
--- OUTSIDE RECORDS SUMMARY | ~2019-01-28 | XMS | Encounter Summary ---
Demographics + + + | Address | [address] | | | [place] [address] | + + + | Home Phone [...] [place], [place] | | | | | [address] | | + + + + + Care Team Providers + +------+ + | Care Campus Security Director Name | Role | Phone | + +------+ + PCP | Unavailable | + +------+ + Encounter Details +--------+ + + + + | Date | Type | Department | Care Team | Description | +--------+ + + + + | 03/12/ | Respiratory | | Other, Faculty | | | 2005 | Therapy | | [phone] | | +--------+ + + + + [...] | | | | | Ángel Combs, DIRECTOR OF DIGITAL PLATFORMS | | | | + + + [...] [facility] | [address] | [place], [place] | | | DIAGNOSTICS - | [address] | [address] | | | PULMONARY FUNCTION | | | | + + + + + documented in this encounter Visit Diagnoses Not on filedocumented in this encounter"
--- OUTSIDE RECORDS SUMMARY | ~2019-01-28 | XMS | Encounter Summary ---
Demographics + + + | Address | [address] [facility] | | | [place] [address] | + + + | Home Phone [...] [place], [place] | | | | | [address] | | + + + + + Care Team Providers + +------+ + | Care Dog Day Care Attendant Name | Role | Phone | + +------+ + PCP | Unavailable | + +------+ + Encounter Details +--------+ + + + + | Date | Type | Department | Care Team | Description | +--------+ + + + + | 02/28/ | Respiratory | | Other, Faculty | | | 2005 | Therapy | | [phone] | | +--------+ + + + + [...] | | | | | Noelle Rothman, FUNDRAISING CONSULTANT | | | | + + [...] [facility] | [address] | [place], [place] | | | DIAGNOSTICS - | [address] | [address] | | | PULMONARY FUNCTION | | | | + + + + + documented in this encounter Visit Diagnoses Not on filedocumented in this encounter"
--- OUTSIDE RECORDS SUMMARY | ~2019-01-28 | XMS | Encounter Summary ---
Demographics + + + | Address | [address] | | | [place] [address] | + + + | Home Phone [...] [place], [place] | | | | | [address] | | + + + + + Care Team Providers + +------+ + | Care Diesel Locomotive Engineer Name | Role | Phone | + +------+ + PCP | Unavailable | + +------+ + Encounter Details +--------+ + + + + | Date | Type | Department | Care Team | Description | +--------+ + + + + | 03/04/ | Respiratory | | Other, Faculty | | | 2005 | Therapy | | [phone] | | +--------+ + + + + [...] Mac, | | | | | | BARBER OR BEAUTY SHOP MANAGER | | | | + + [...] [facility] | [address] | [place], [place] | | | DIAGNOSTICS - | [address] | [address] | | | PULMONARY FUNCTION | | | | + + + + + documented in this encounter Visit Diagnoses Not on filedocumented in this encounter"
--- OUTSIDE RECORDS SUMMARY | ~2019-01-28 | XMS | Encounter Summary ---
Demographics + + + | Address | [address] [facility] | | | [place] [address] | + + + | Home Phone [...] [place], [place] | | | | | [address] | | + + + + + Care Team Providers + +------+ + | Care Telemarketing Manager Name | Role | Phone | + +------+ + PCP | Unavailable | + +------+ + Encounter Details +--------+ + + + + | Date | Type | Department | Care Team | Description | +--------+ + + + + | 03/04/ | Respiratory | | Other, Faculty | | | 2005 | Therapy | | [phone] | | +--------+ + + + + [...] + + + | [facility] | [address] | [place], [place] | | | DIAGNOSTICS - | [address] | [address] | | | PULMONARY FUNCTION | | | | + + + + + documented in this encounter Visit Diagnoses Not on filedocumented in this encounter"
--- OUTSIDE RECORDS SUMMARY | ~2019-01-28 | XMS | Encounter Summary ---
Demographics + + + | Address | [address] [facility] | | | [place] [address] | + + + | Home Phone [...] [place], [place] | | | | | [address] | | + + + + + Care Team Providers + +------+ + | Care Veneer Sorter Name | Role | Phone | + +------+ + PCP | Unavailable | + +------+ + Encounter Details +--------+ + + + + | Date | Type | Department | Care Team | Description | +--------+ + + + + | 03/16/ | Respiratory | | Other, Faculty | | | 2005 | Therapy | | [phone] | | +--------+ + + + + [...] | | | | | Y | REGULATORY SUBMISSIONS SPECIALIST | | | | + + [...] [facility] | [address] | [place] | | | DIAGNOSTICS - | [address] | [address] | | | PULMONARY FUNCTION | | | | + + + + + documented in this encounter Visit Diagnoses Not on filedocumented in this encounter"
--- OUTSIDE RECORDS SUMMARY | ~2019-01-28 | XMS | Encounter Summary ---
Demographics + + + | Address | [address] | | | [place] [address] | + + + | Home Phone | | + + + | Preferred Language | Unknown | + + + | Marital Status | | + + + | Amish Affiliation | NON | + + + [...] [place], [place] | | | | | [address] | | + + + + + Care Team Providers + +------+ + | Care Ring Spinner Name | Role | Phone | + +------+ + PCP | Unavailable | + +------+ + Encounter Details +--------+ + + + + | Date | Type | Department | Care Team | Description | +--------+ + + + + | 03/10/ | Respiratory | | Other, Faculty | | | 2005 | Therapy | | [phone] | | +--------+ + + + + [...] | | | | Y | ELECTRIC OPERATOR | | | | + + [...] | DIAGNOSTICS - | [address] | [address] | | | PULMONARY FUNCTION | | | | + + + + + documented in this encounter Visit Diagnoses Not on filedocumented in this encounter"
--- OUTSIDE RECORDS SUMMARY | ~2019-01-28 | XMS | Encounter Summary ---
Demographics + + + | Address | [address] | | | [place] [address] | + + + | Home Phone [...] [place], [place] | | | | | [address] | | + + + + + Care Team Providers + +------+ + | Care Irradiated Fuel Handler Name | Role | Phone | + +------+ + PCP | Unavailable | + +------+ + Encounter Details +--------+ + + + + | Date | Type | Department | Care Team | Description | +--------+ + + + + | 03/07/ | Respiratory | | Other, Faculty | | | 2005 | Therapy | | [phone] | | +--------+ + + + + [...] Howe, | | | | | | AGRONOMY ADVISOR | | | | + + + [...] [facility] | [address] | [place], [place] | | | DIAGNOSTICS - | [address] | [address] | | | PULMONARY FUNCTION | | | | + + + + + documented in this encounter Visit Diagnoses Not on filedocumented in this encounter"
--- OUTSIDE RECORDS SUMMARY | ~2019-01-28 | XMS | Encounter Summary ---
Demographics + + + | Address | [address] [facility] | | | [place] [address] | + + + | Home Phone | | + + + | Preferred Language | Unknown | + + + | Marital Status | | + + + | Sikhism Affiliation | NON | + + + [...] [place], [place] | | | | | [address] | | + + + + + Care Team Providers + +------+ + | Care Domestic Helper Name | Role | Phone | + +------+ + PCP | Unavailable | + +------+ + Encounter Details +--------+ + + + + | Date | Type | Department | Care Team | Description | +--------+ + + + + | 03/19/ | Respiratory | | Other, Faculty | | | 2005 | Therapy | | [phone] | | +--------+ + + + + [...] [facility] | [address] | [place], [place] | | | DIAGNOSTICS - | [address] | [address] | | | PULMONARY FUNCTION | | | | + + + + + documented in this encounter Visit Diagnoses Not on filedocumented in this encounter"
--- OUTSIDE RECORDS SUMMARY | ~2019-01-28 | XMS | Encounter Summary ---
Demographics + + + | Address | [address] [facility] [address] [facility] | | | [place] [address] | + + + | Home Phone [...] [place], [place] | | | | | [address] | | + + + + + Care Team Providers + +------+ + | Care Net Washer Name | Role | Phone | + +------+ + PCP | Unavailable | + +------+ + Encounter Details +--------+ + + + + | Date | Type | Department | Care Team | Description | +--------+ + + + + | 02/21/ | Respiratory | | Other, Faculty | | | 2005 | Therapy | | [phone] | | +--------+ + + + + [...] | | | | Y | Afsaneh SALESPERSON NECKTIES | | | | + + + [...] [facility] | [address] | [place], [place] | | | DIAGNOSTICS - | [address] | [address] | | | PULMONARY FUNCTION | | | | + + + + + documented in this encounter Visit Diagnoses Not on filedocumented in this encounter"
--- OUTSIDE RECORDS SUMMARY | ~2019-01-28 | XMS | Encounter Summary ---
Demographics + + + | Address | [address] | | | [place] [address] | + + + | Home Phone [...] [place], [place] | | | | | [address] | | + + + + + Care Team Providers + +------+ + | Care Methods And Procedures Analyst Name | Role | Phone | + +------+ + PCP | Unavailable | + +------+ + Encounter Details +--------+ + + + + | Date | Type | Department | Care Team | Description | +--------+ + + + + | 03/15/ | Respiratory | | Other, Faculty | | | 2005 | Therapy | | [phone] | | +--------+ + + + + [...] [facility] | [address] | [place], [place] | | | DIAGNOSTICS - | [address] | [address] | | | PULMONARY FUNCTION | | | | + + + + + documented in this encounter Visit Diagnoses Not on filedocumented in this encounter"
--- OUTSIDE RECORDS SUMMARY | ~2019-01-28 | XMS | Encounter Summary ---
Demographics + + + | Address | [address] [facility] [address] [facility] | | | [place] [address] | + + + | Home Phone [...] [place], [place] | | | | | [address] | | + + + + + Care Team Providers + +------+ + | Care Product Management Analyst Name | Role | Phone | + +------+ + PCP | Unavailable | + +------+ + Encounter Details +--------+ + + + + | Date | Type | Department | Care Team | Description | +--------+ + + + + | 02/09/ | Results | Emergency Medicine | Dorian Gay MD | | | 2005 | Only | [address] | [address] | | | | | [facility] | [facility] | | | | | [place], [place] | [place], [place] | | | | | [address] | [address] | | | | | | [phone] | | | | | | | [...] | | + +---------+ + + | [facility] DEPARTMENT OF | | | | [...] | | + +---------+ + + | [facility] DEPARTMENT OF | | | | [...] | | + +---------+ + + | [facility] DEPARTMENT OF | | | | [...] | | + +---------+ + + | [facility] DEPARTMENT OF | | | | [...] | | + +---------+ + + | [facility] DEPARTMENT OF | | | | | RADIOLOGY | | | | + +---------+ + + documented in this encounter Visit Diagnoses Not on filedocumented in this encounter"
--- OUTSIDE RECORDS SUMMARY | ~2019-01-28 | XMS | Encounter Summary ---
Demographics + + + | Address | [address] | | | [place] [address] | + + + | Home Phone [...] [place], [place] | | | | | [address] | | + + + + + Care Team Providers + +------+ + | Care Director News Name | Role | Phone | + +------+ + PCP | Unavailable | + +------+ + Encounter Details +--------+ + + + + | Date | Type | Department | Care Team | Description | +--------+ + + + + | 03/16/ | Respiratory | | Other, Faculty | | | 2005 | Therapy | | [phone] | | +--------+ + + + + [...] + + + | [facility] | [address] | [place] | | | DIAGNOSTICS - | [address] | [address] | | | PULMONARY FUNCTION | | | | + + + + + documented in this encounter Visit Diagnoses Not on filedocumented in this encounter"
--- OUTSIDE RECORDS SUMMARY | ~2019-01-28 | XMS | Encounter Summary ---
Demographics + + + | Address | [address] [facility] | | | [place] [address] | + + + | Home Phone [...] [place], [place] | | | | | [address] | | + + + + + Care Team Providers + +------+ + | Care Mine Engineer Name | Role | Phone | + +------+ + PCP | Unavailable | + +------+ + Encounter Details +--------+ + + + + | Date | Type | Department | Care Team | Description | +--------+ + + + + | 03/03/ | Respiratory | | Other, Faculty | | | 2005 | Therapy | | [phone] | | +--------+ + + + + [...] [facility] | [address] | [place], [place] | | | DIAGNOSTICS - | [address] | [address] | | | PULMONARY FUNCTION | | | | + + + + + documented in this encounter Visit Diagnoses Not on filedocumented in this encounter"
--- OUTSIDE RECORDS SUMMARY | ~2019-01-28 | XMS | Encounter Summary ---
Demographics + + + | Address | [address] | | | [place] [address] | + + + | Home Phone [...] [place], [place] | | | | | [address] | | + + + + + Care Team Providers + +------+ + | Care Clerk Cashier Name | Role | Phone | + +------+ + PCP | Unavailable | + +------+ + Encounter Details +--------+ + + + + | Date | Type | Department | Care Team | Description | +--------+ + + + + | 03/20/ | Respiratory | | Other, Faculty | | | 2005 | Therapy | | [phone] | | +--------+ + + + + [...] [facility] | [address] | [place], [place] | | | DIAGNOSTICS - | [address] | [address] | | | PULMONARY FUNCTION | | | | + + + + + documented in this encounter Visit Diagnoses Not on filedocumented in this encounter"
--- OUTSIDE RECORDS SUMMARY | ~2019-01-28 | XMS | Encounter Summary ---
Demographics + + + | Address | [address] [facility] | | | [place] [address] | + + + | Home Phone [...] + + + + + | Yanni Anotine | ECON | [address] | | | | | [place], [place] | | | | | [address] | | + + + + + Care Team Providers + +------+ + | Care Tractor Crane Operator Name | Role | Phone | + +------+ + PCP | Unavailable | + +------+ + Encounter Details +--------+ + + + + | Date | Type | Department | Care Team | Description | +--------+ + + + + | 03/11/ | Respiratory | | Other, Faculty | | | 2005 | Therapy | | [phone] | | +--------+ + + + + [...] | | | | | Y | ANCHOR TACKER | | | | + + + [...] [facility] | [address] | [place], [place] | | | DIAGNOSTICS - | [address] | [address] | | | PULMONARY FUNCTION | | | | + + + + + documented in this encounter Visit Diagnoses Not on filedocumented in this encounter"
--- OUTSIDE RECORDS SUMMARY | ~2019-01-28 | XMS | Encounter Summary ---
Demographics + + + | Address | [address] [facility] | | | [place] [address] | + + + | Home Phone [...] [place], [place] | | | | | [address] | | + + + + + Care Team Providers + +------+ + | Care Creative Specialist Name | Role | Phone | + +------+ + PCP | Unavailable | + +------+ + Encounter Details +--------+ + + + + | Date | Type | Department | Care Team | Description | +--------+ + + + + | 03/18/ | Respiratory | | Other, Faculty | | | 2005 | Therapy | | [phone] | | +--------+ + + + + [...] | | | | | Y | DOG BREEDER | | | | + + + [...] [facility] | [address] | [place] | | | DIAGNOSTICS - | [address] | [address] | | | PULMONARY FUNCTION | | | | + + + + + documented in this encounter Visit Diagnoses Not on filedocumented in this encounter"
--- OUTSIDE RECORDS SUMMARY | ~2019-01-28 | XMS | Encounter Summary ---
Demographics + + + | Address | [address] [facility] [facility] | | | [place] [address] | + + + | Home Phone [...] [place], [place] | | | | | [address] | | + + + + + Care Team Providers + +------+ + | Care Math And Physics Instructor Name | Role | Phone | + +------+ + PCP | Unavailable | + +------+ + Encounter Details +--------+ + + + + | Date | Type | Department | Care Team | Description | +--------+ + + + + | 03/01/ | Respiratory | | Other, Faculty | | | 2005 | Therapy | | [phone] | | +--------+ + + + + [...] Hinton, | | | | | | PRINCIPAL SECRETARY | | | | + + + [...] [facility] | [address] | [place], [place] | | | DIAGNOSTICS - | [address] | [address] | | | PULMONARY FUNCTION | | | | + + + + + documented in this encounter Visit Diagnoses Not on filedocumented in this encounter"
--- OUTSIDE RECORDS SUMMARY | ~2019-01-28 | XMS | Encounter Summary ---
Demographics + + + | Address | [address] [facility] | | | [place] [address] | + + + | Home Phone [...] [place], [place] | | | | | [address] | | + + + + + Care Team Providers + +------+ + | Care Audio Visual Design Engineer Name | Role | Phone | + +------+ + PCP | Unavailable | + +------+ + Encounter Details +--------+ + + + + | Date | Type | Department | Care Team | Description | +--------+ + + + + | 02/22/ | Respiratory | | Other, Faculty | | | 2005 | Therapy | | [phone] | | +--------+ + + + + [...] [facility] | [address] | [place], [place] | | | DIAGNOSTICS - | [address] | [address] | | | PULMONARY FUNCTION | | | | + + + + + documented in this encounter Visit Diagnoses Not on filedocumented in this encounter"
--- OUTSIDE RECORDS SUMMARY | ~2019-01-28 | XMS | Encounter Summary ---
Demographics + + + | Address | [address] [facility] [facility] | | | [place] [address] | + + + | Home Phone [...] [place], [place] | | | | | [address] | | + + + + + Care Team Providers + +------+ + | Care Regional Economist Name | Role | Phone | + +------+ + PCP | Unavailable | + +------+ + Encounter Details +--------+ + + + + | Date | Type | Department | Care Team | Description | +--------+ + + + + | 03/01/ | Respiratory | | Other, Faculty | | | 2005 | Therapy | | [phone] | | +--------+ + + + + [...] Hinton, | | | | | | STORE PERSON | | | | + + + [...] [facility] | [address] | [place], [place] | | | DIAGNOSTICS - | [address] | [address] | | | PULMONARY FUNCTION | | | | + + + + + documented in this encounter Visit Diagnoses Not on filedocumented in this encounter"
--- OUTSIDE RECORDS SUMMARY | ~2019-01-28 | XMS | Encounter Summary ---
Demographics + + + | Address | [address] [facility] | | | [place] [address] | + + + | Home Phone [...] [place], [place] | | | | | [address] | | + + + + + Care Team Providers + +------+ + | Care Airline Operations Agent Name | Role | Phone | + +------+ + PCP | Unavailable | + +------+ + Encounter Details +--------+ + + + + | Date | Type | Department | Care Team | Description | +--------+ + + + + | 03/12/ | Respiratory | | Other, Faculty | | | 2005 | Therapy | | [phone] | | +--------+ + + + + [...] [facility] | [address] | [place] | | | DIAGNOSTICS - | [address] | [address] | | | PULMONARY FUNCTION | | | | + + + + + documented in this encounter Visit Diagnoses Not on filedocumented in this encounter"
--- OUTSIDE RECORDS SUMMARY | ~2019-01-28 | XMS | Encounter Summary ---
Demographics + + + | Address | [address] [facility] | | | [place] [address] | + + + | Home Phone [...] [place], [place] | | | | | [address] | | + + + + + Care Team Providers + +------+ + | Care Carousel Attendant Name | Role | Phone | + +------+ + PCP | Unavailable | + +------+ + Encounter Details +--------+ + + + + | Date | Type | Department | Care Team | Description | +--------+ + + + + | 02/21/ | Respiratory | | Other, Faculty | | | 2005 | Therapy | | [phone] | | +--------+ + + + + [...] | | GAS/HUMIDIT | OXYGEN. Ángel Combs, ANTHROPOLOGY PROFESSOR | | | | | Y |Ángel Combs, ANTHROPOLOGY PROFESSOR | | | | + + + [...] [facility] | [address] | [place], [place] | | | DIAGNOSTICS - | [address] | [address] | | | PULMONARY FUNCTION | | | | + + + + + documented in this encounter Visit Diagnoses Not on filedocumented in this encounter"
--- OUTSIDE RECORDS SUMMARY | ~2019-01-28 | XMS | Encounter Summary ---
Demographics + + + | Address | [address] [facility] | | | [place] [address] | + + + | Home Phone [...] [place], [place] | | | | | [address] | | + + + + + Care Team Providers + +------+ + | Care Systems Technologist Name | Role | Phone | + +------+ + PCP | Unavailable | + +------+ + Encounter Details +--------+ + + + + | Date | Type | Department | Care Team | Description | +--------+ + + + + | 03/01/ | Respiratory | | Other, Faculty | | | 2005 | Therapy | | [phone] | | +--------+ + + + + [...] Rothman, | | | | | | MECHANICAL EXPERT | | | | + + [...] + + + | [facility] | [address] | [place], [place] | | | DIAGNOSTICS - | [address] | [address] | | | PULMONARY FUNCTION | | | | + + + + + documented in this encounter Visit Diagnoses Not on filedocumented in this encounter"
--- OUTSIDE RECORDS SUMMARY | ~2019-01-28 | XMS | Encounter Summary ---
Demographics + + + | Address | [address] [facility] | | | [place] [address] | + + + | Home Phone [...] [place], [place] | | | | | [address] | | + + + + + Care Team Providers + +------+ + | Care Spring Tacker Name | Role | Phone | + [...] | Transcriptions | + + | Interface, Gore Seamer In - 05/07/2006 2:08 AM PDT | | [id number] | | [phone] ASH[place] Peck [phone] | | | | Date: 02/10/2006 | | | | Attending Surgeon: Marcos Sin M.D. | | | | Whittling Room Operator(s): Gloria Dockery M.D. | | Harmeet Sims [...] | | | / HS | | [id number] / [id number] / [id number] / [id number] | | | | | | | | | | | | | | Electronically signed by Jong Sin 05-06-2006 04:56:24 PM | + + documented in this encounter Visit Diagnoses Not on filedocumented in this encounter"
--- OUTSIDE RECORDS SUMMARY | ~2019-01-28 | XMS | Encounter Summary ---
Demographics + + + | Address | [address] [facility] | | | [place] [address] | + + + | Home Phone [...] [place], [place] | | | | | [address] | | + + + + + Care Team Providers + +------+ + | Care Room Service Manager Name | Role | Phone | + +------+ + PCP | Unavailable | + +------+ + Encounter Details +--------+ + + + + | Date | Type | Department | Care Team | Description | +--------+ + + + + | 03/14/ | Respiratory | | Other, Faculty | | | 2005 | Therapy | | [phone] | | +--------+ + + + + [...] | | | | Y |Yung Boss, BODY FORMER | | | | + + + [...] [facility] | [address] | [place], [place] | | | DIAGNOSTICS - | [address] | [address] | | | PULMONARY FUNCTION | | | | + + + + + documented in this encounter Visit Diagnoses Not on filedocumented in this encounter"
--- OUTSIDE RECORDS SUMMARY | ~2019-01-28 | XMS | Encounter Summary ---
Demographics + + + | Address | [address] [facility] | | | [place] [address] | + + + | Home Phone [...] [place], [place] | | | | | [address] | | + + + + + Care Team Providers + +------+ + | Care Claims Specialist Name | Role | Phone | + +------+ + PCP | Unavailable | + +------+ + Encounter Details +--------+ + + + + | Date | Type | Department | Care Team | Description | +--------+ + + + + | 03/03/ | Respiratory | | Other, Faculty | | | 2005 | Therapy | | [phone] | | +--------+ + + + + [...] + + + | [facility] | [address] | [place], [place] | | | DIAGNOSTICS - | [address] | [address] | | | PULMONARY FUNCTION | | | | + + + + + documented in this encounter Visit Diagnoses Not on filedocumented in this encounter"
--- OUTSIDE RECORDS SUMMARY | ~2019-01-28 | XMS | Encounter Summary ---
Demographics + + + | Address | [address] [facility] | | | [place] [address] | + + + | Home Phone [...] [place], [place] | | | | | [address] | | + + + + + Care Team Providers + +------+ + | Care Process Plant Operator Name | Role | Phone | + +------+ + PCP | Unavailable | + +------+ + Encounter Details +--------+ + + + + | Date | Type | Department | Care Team | Description | +--------+ + + + + | 02/21/ | Respiratory | | Other, Faculty | | | 2005 | Therapy | | [phone] | | +--------+ + + + + [...] | | | | Y | Afsaneh ADJUNCT PSYCHOLOGY FACULTY MEMBER | | | | + + + [...] [facility] | [address] | [place], [place] | | | DIAGNOSTICS - | [address] | [address] | | | PULMONARY FUNCTION | | | | + + + + + documented in this encounter Visit Diagnoses Not on filedocumented in this encounter"
--- OUTSIDE RECORDS SUMMARY | ~2019-01-28 | XMS | Encounter Summary ---
Demographics + + + | Address | [address] [facility] | | | [place] [address] | + + + | Home Phone [...] [place], [place] | | | | | [address] | | + + + + + Care Team Providers + +------+ + | Care Edge Stainer Name | Role | Phone | + +------+ + PCP | Unavailable | + +------+ + Encounter Details +--------+ + + + + | Date | Type | Department | Care Team | Description | +--------+ + + + + | 03/04/ | Respiratory | | Other, Faculty | | | 2005 | Therapy | | [phone] | | +--------+ + + + + [...] Mac, | | | | | | WIRELESS SALES EXPERT | | | | + + [...] [facility] | [address] | [place], [place] | | | DIAGNOSTICS - | [address] | [address] | | | PULMONARY FUNCTION | | | | + + + + + documented in this encounter Visit Diagnoses Not on filedocumented in this encounter"
--- OUTSIDE RECORDS SUMMARY | ~2019-01-28 | XMS | Encounter Summary ---
Demographics + + + | Address | [address] [facility] | | | [place] [address] | + + + | Home Phone [...] [place], [place] | | | | | [address] | | + + + + + Care Team Providers + +------+ + | Care Machine Clipper Name | Role | Phone | + +------+ + PCP | Unavailable | + +------+ + Encounter Details +--------+ + + + + | Date | Type | Department | Care Team | Description | +--------+ + + + + | 02/20/ | Respiratory | | Other, Faculty | | | 2005 | Therapy | | [phone] | | +--------+ + + + + [...] | | | | | Y | TEST BORE HELPER | | | | + + [...] | DIAGNOSTICS - | [address] | [address] | | | PULMONARY FUNCTION | | | | + + + + + documented in this encounter Visit Diagnoses Not on filedocumented in this encounter"
--- OUTSIDE RECORDS SUMMARY | ~2019-01-28 | XMS | Encounter Summary ---
Demographics + + + | Address | [address] [facility] | | | [place] [address] | + + + | Home Phone [...] [place], [place] | | | | | [address] | | + + + + + Care Team Providers + +------+ + | Care Fryer Line Helper Name | Role | Phone | [...]
--- OUTSIDE RECORDS SUMMARY | ~2019-01-28 | XMS | Encounter Summary ---
Demographics + + + | Address | [address] [facility] | | | [place] [address] | + + + | Home Phone | | + + + | Preferred Language | Unknown | + + + | Marital Status | | + + + | Zoroastrianism Affiliation | NON | + + + [...] [place], [place] | | | | | [address] | | + + + + + Care Team Providers + +------+ + | Care Organic Search Lead Name | Role | Phone | + +------+ + PCP | Unavailable | + +------+ + Encounter Details +--------+ + + + + | Date | Type | Department | Care Team | Description | +--------+ + + + + | 02/18/ | Results | | Other, Faculty | | | 2006 | Only | | [phone] | | +--------+ + + + + [...]
--- OUTSIDE RECORDS SUMMARY | ~2019-01-28 | XMS | Encounter Summary ---
Demographics + + + | Address | [address] [facility] | | | [place] [address] | [...] [place], [place] | | | | | [address] | | + + + + + Care Team Providers + +------+ + | Care Professor Of Radiology Name | Role | Phone | + +------+ + PCP | Unavailable | + +------+ + Encounter Details +--------+ + + + + | Date | Type | Department | Care Team | Description | +--------+ + + + + | 02/24/ | Respiratory | | Other, Faculty | | | 2005 | Therapy | | [phone] | | +--------+ + + + + [...] [facility] | [address] | [place], [place] | | | DIAGNOSTICS - | [address] | [address] | | | PULMONARY FUNCTION | | | | + + + + + documented in this encounter Visit Diagnoses Not on filedocumented in this encounter"
--- OUTSIDE RECORDS SUMMARY | ~2019-01-28 | XMS | Encounter Summary ---
Demographics + + + | Address | [address] [facility] | | | [place] [address] | + + + | Home Phone | | + + + | Preferred Language | Unknown | + + + | Marital Status | | + + + | Mormonism Affiliation | NON | + + + [...] [place], [place] | | | | | [address] | | + + + + + Care Team Providers + +------+ + | Care Paper Sorter Name | Role | Phone | + +------+ + PCP | Unavailable | + +------+ + Encounter Details +--------+ + + + + | Date | Type | Department | Care Team | Description | +--------+ + + + + | 03/05/ | Respiratory | | Other, Faculty | | | 2005 | Therapy | | [phone] | | +--------+ + + + + [...] | | GAS/HUMIDIT | OXYGEN. Viridiana Yu CRM MARKETING EXECUTIVE | | | | | Y |Viridiana Yu CRM MARKETING EXECUTIVE | | | | + + + [...] [facility] | [address] | [place], [place] | | | DIAGNOSTICS - | [address] | [address] | | | PULMONARY FUNCTION | | | | + + + + + documented in this encounter Visit Diagnoses Not on filedocumented in this encounter"
--- OUTSIDE RECORDS SUMMARY | ~2019-01-28 | XMS | Encounter Summary ---
Demographics + + + | Address | [address] [facility] | | | [place] [address] | + + + | Home Phone [...] [place], [place] | | | | | [address] | | + + + + + Care Team Providers + +------+ + | Care Defect Cutter Name | Role | Phone | + +------+ + PCP | Unavailable | + +------+ + Encounter Details +--------+ + + + + | Date | Type | Department | Care Team | Description | +--------+ + + + + | 03/06/ | Respiratory | | Other, Faculty | | | 2005 | Therapy | | [phone] | | +--------+ + + + + [...] | | | | USE. Viridiana Yu, CODE ENFORCEMENT OFFICER | | | | + + + [...] [facility] | [address] | [place], [place] | | | DIAGNOSTICS - | [address] | [address] | | | PULMONARY FUNCTION | | | | + + + + + documented in this encounter Visit Diagnoses Not on filedocumented in this encounter"
--- OUTSIDE RECORDS SUMMARY | ~2019-01-28 | XMS | Encounter Summary ---
Demographics + + + | Address | [address] [facility] | | | [place] [address] | + + + | Home Phone [...] [place], [place] | | | | | [address] | | + + + + + Care Team Providers + +------+ + | Care Material Lister Name | Role | Phone | + +------+ + PCP | Unavailable | + +------+ + Encounter Details +--------+ + + + + | Date | Type | Department | Care Team | Description | +--------+ + + + + | 03/04/ | Respiratory | | Other, Faculty | | | 2005 | Therapy | | [phone] | | +--------+ + + + + [...] + + + | [facility] | [address] | [place], [place] | | | DIAGNOSTICS - | [address] | [address] | | | PULMONARY FUNCTION | | | | + + + + + documented in this encounter Visit Diagnoses Not on filedocumented in this encounter"
--- OUTSIDE RECORDS SUMMARY | ~2019-01-28 | XMS | Encounter Summary ---
Demographics + + + | Address | [address] [facility] | | | [place] [address] | + + + | Home Phone [...] [place], [place] | | | | | [address] | | + + + + + Care Team Providers + +------+ + | Care Art Coordinator Name | Role | Phone | + +------+ + PCP | Unavailable | + +------+ + Encounter Details +--------+ + + + + | Date | Type | Department | Care Team | Description | +--------+ + + + + | 02/28/ | Respiratory | | Other, Faculty | | | 2005 | Therapy | | [phone] | | +--------+ + + + + [...] Rothman, | | | | | | RESIDENT CARE ASSOCIATE | | | | + + + [...] + + + | [facility] | [address] | [place], [place] | | | DIAGNOSTICS - | [address] | [address] | | | PULMONARY FUNCTION | | | | + + + + + documented in this encounter Visit Diagnoses Not on filedocumented in this encounter"
--- OUTSIDE RECORDS SUMMARY | ~2019-01-28 | XMS | Encounter Summary ---
Demographics + + + | Address | [address] [facility] | | | [place] [address] | + + + | Home Phone [...] [place], [place] | | | | | [address] | | + + + + + Care Team Providers + +------+ + | Care Rehab Aid Name | Role | Phone | + [...] | Transcriptions | + + | Interface, Home Health Nurse Licensed Practical In - 03/16/2006 2:06 AM PDT | | [id number] | | [id number] ASHLEY Peck [phone] | | | | Date: 02/15/2006 | [...] De La Garza M.D., F.A.C.S. | | cement production plant operator @ clinic lpn Service | | | | SHARA / HS | | [id number] / [id number] / [id number] / [phone] | | | | | | E: 02/28/2006 vita | | | | Electronically signed by Thai De La Garza 03-15-2006 05:35:16 PM | + + documented in this encounter Visit Diagnoses Not on filedocumented in this encounter"
--- OUTSIDE RECORDS SUMMARY | ~2019-01-28 | XMS | Encounter Summary ---
Demographics + + + | Address | [address] [facility] | | | [place] [address] | + + + | Home Phone [...] [place], [place] | | | | | [address] | | + + + + + Care Team Providers + +------+ + | Care Nursing Care Attendant Name | Role | Phone [...] | Transcriptions | + + | Interface, Internal Corrosion Specialist In - 03/01/2006 2:08 AM PDT | | [id number] | | [id number] ASHLEY Peck [phone] | | | | Date: 02/19/2006 | | | | Attending Surgeon: Ranjit Dobson M.D. | | | | Oven Baker(s): Ángel Horne M.D. | | Frankie Miles [...] | | AWP / HS | | [id number] / [id number] / [id number] / [id number] | | | | | | | | | | | | Electronically signed by Ranjit Dobson 02-28-2006 04:32:41 PM | | [id number] Account: [id number], DocSeq: [id number] | | Persuant to medicare and medicaid regulations, I was present for the | | critical portions of the procedure. | | Electronically signed by Ranjit Dobson 02-28-2006 04:33:37 PM | + + documented in this encounter Visit Diagnoses Not on filedocumented in this encounter"
--- OUTSIDE RECORDS SUMMARY | ~2019-01-28 | XMS | Encounter Summary ---
Demographics + + + | Address | [address] [facility] | | | [place] [address] | + + + | Home Phone [...] [place], [place] | | | | | [address] | | + + + + + Care Team Providers + +------+ + | Care Pizza Baker Name | Role | Phone | + [...] as of this encounter Discharge Summaries Interface, Nursing Home Social Worker In - 04/11/2006 2:07 AM PDT [id number] [id number] ASHLEY Peck [phone] [id number] Admission Date: 02/09/2006 Discharge Date: 04/02/2006 Staff [...] trauma system and transferred for care to [facility] from [place]. In the ED, he had a chest [...] C7 fracture, he was placed in an Bayside collar for 4 to 6 weeks. After the 6-week time period that he had been on Bayside collar, we tried to get flexion-extension x-rays, [...] an outpatient facility near his home in [place]. He knows to call the Trauma resident, [...] primary care physician in his home in [place] to manage his rehabilitation and his medications. Eri Davidson M.D. Thai De La Garza M.D., F.A.C.S. environmental technology professor @ aviation electrical technician Service KO / HS [id number] / [id number] / [id number] / Electronically signed by Thai De La Garza 04-10-2006 10:47:02 AM documented i n this encounter Plan of Treatment Not on filedocumented as of this encounter Visit Diagnoses Not on filedocumented in this encounter"
--- OUTSIDE RECORDS SUMMARY | ~2019-01-28 | XMS | Encounter Summary ---
Demographics + + + | Address | [address] [facility] | | | [place] [address] | + + + | Home Phone [...] [place], [place] | | | | | [address] | | + + + + + Care Team Providers + +------+ + | Care Web Page Developer Name | Role | Phone | + +------+ + PCP | Unavailable | + +------+ + Encounter Details +--------+ + + + + | Date | Type | Department | Care Team | Description | +--------+ + + + + | 03/03/ | Respiratory | | Other, Faculty | | | 2005 | Therapy | | [phone] | | +--------+ + + + + [...] | | | | | Y | POSTAL WORKER | | | | + + [...] | DIAGNOSTICS - | [address] | [address] | | | PULMONARY FUNCTION | | | | + + + + + documented in this encounter Visit Diagnoses Not on filedocumented in this encounter"
--- OUTSIDE RECORDS SUMMARY | ~2019-01-28 | XMS | Encounter Summary ---
Demographics + + + | Address | [address] [facility] | | | [place] [address] | + + + | Home Phone | | + + + | Preferred Language | Unknown | + + + | Marital Status | | + + + | Yarsani Affiliation | NON | + + + | Race | White | + + + | Ethnic Group | Not or | + + + Author + + + | Author | [facility] | + + + | Organization | [facility] | + + + | Address | Unknown | + + + | Phone | Unavailable | + + + Support + + + + + | Name | Relationship | Address | Phone | + + + + + | Yanni Antoine | ECON | [address] | | | | | [place], [place] | | | | | [address] | | + + + + + Care Team Providers + +------+ + | Care Adjuster Piano Action Name | Role | Phone | + [...]
--- OUTSIDE RECORDS SUMMARY | ~2019-01-28 | XMS | Encounter Summary ---
Demographics + + + | Address | [address] [facility] | | | [place] [address] | + + + | Home Phone | | + + + | Preferred Language | Unknown | + + + | Marital Status | | + + + | Episcopal Affiliation | NON | + + + | Race | White | + + + | Ethnic Group | Not or | + + + Author + + + | Author | [facility] | + + + | Organization | [facility] | + + + | Address | Unknown | + + + | Phone | Unavailable | + + + Support + + + + + | Name | Relationship | Address | Phone | + + + + + | Yanni Antoine | ECON | [address] | | | | | [place], [place] | | | | | [address] | | + + + + + Care Team Providers + +------+ + | Care Supervisor Telephone Clerks Name | Role | Phone | + [...] Chung MD | | | | | [facility] | | | | | | Mailcode: L223A | | | | | | [place] | | | | | | [address] [place], | | | | | | [place] [address] | | | | | | [phone] | | | +--------+ + + + [...] + + | Performing | Address | City/State/[facility] | Phone Number | | Organization | | | | + +---------+ + + | [facility] DEPARTMENT OF | | | | | RADIOLOGY | | | | + +---------+ + + documented in this encounter Visit Diagnoses Not on filedocumented in this encounter"
--- OUTSIDE RECORDS SUMMARY | ~2019-01-28 | XMS | Encounter Summary ---
Demographics + + + | Address | [address] [facility] | | | [place] [address] | + + + | Home Phone [...] [place], [place] | | | | | [address] | | + + + + + Care Team Providers + +------+ + | Care Assisted Living Director Name | Role | Phone | + +------+ + PCP | Unavailable | + +------+ + Encounter Details +--------+ + + + + | Date | Type | Department | Care Team | Description | +--------+ + + + + | 03/03/ | Respiratory | | Other, Faculty | | | 2005 | Therapy | | [phone] | | +--------+ + + + + [...] [facility] | [address] | [place], [place] | | | DIAGNOSTICS - | [address] | [address] | | | PULMONARY FUNCTION | | | | + + + + + documented in this encounter Visit Diagnoses Not on filedocumented in this encounter"
--- OUTSIDE RECORDS SUMMARY | ~2019-01-28 | XMS | Encounter Summary ---
Demographics + + + | Address | [address] [facility] | | | [place] [address] | + + + | Home Phone [...] [place], [place] | | | | | [address] | | + + + + + Care Team Providers + +------+ + | Care Admitting Supervisor Name | Role | Phone | + +------+ + PCP | Unavailable | + +------+ + Encounter Details +--------+ + + + + | Date | Type | Department | Care Team | Description | +--------+ + + + + | 03/05/ | Respiratory | | Other, Faculty | | | 2005 | Therapy | | [phone] | | +--------+ + + + + [...] | | | | | | Alms, HEATING OPERATORS ENGINEER | | | | + + [...] + + + | [facility] | [address] | [place] | | | DIAGNOSTICS - | [address] | [address] | | | PULMONARY FUNCTION | | | | + + + + + documented in this encounter Visit Diagnoses Not on filedocumented in this encounter"
--- OUTSIDE RECORDS SUMMARY | ~2019-01-28 | XMS | Encounter Summary ---
Demographics + + + | Address | [address] [facility] | | | [place] [address] | + + + | Home Phone [...] [place], [place] | | | | | [address] | | + + + + + Care Team Providers + +------+ + | Care Atmospheric Scientist Name | Role | Phone | + +------+ + PCP | Unavailable | + +------+ + Encounter Details +--------+ + + + + | Date | Type | Department | Care Team | Description | +--------+ + + + + | 02/26/ | Respiratory | | Other, Faculty | | | 2005 | Therapy | | [phone] | | +--------+ + + + + [...] [facility] | [address] | [place], [place] | | | DIAGNOSTICS - | [address] | [address] | | | PULMONARY FUNCTION | | | | + + + + + documented in this encounter Visit Diagnoses Not on filedocumented in this encounter"
--- OUTSIDE RECORDS SUMMARY | ~2019-01-28 | XMS | Encounter Summary ---
Demographics + + + | Address | [address] [facility] | | | [place] [address] | + + + | Home Phone | | + + + | Preferred Language | Unknown | + + + | Marital Status | | + + + | Rastafarian Affiliation | NON | + + + [...] [place], [place] | | | | | [address] | | + + + + + Care Team Providers + +------+ + | Care Torch Straightener And Heater Name | Role | Phone | + +------+ + PCP | Unavailable | + +------+ + Encounter Details +--------+ + + + + | Date | Type | Department | Care Team | Description | +--------+ + + + + | 03/03/ | Respiratory | | Other, Faculty | | | 2005 | Therapy | | [phone] | | +--------+ + + + + [...] [facility] | [address] | [place], [place] | | | DIAGNOSTICS - | [address] | [address] | | | PULMONARY FUNCTION | | | | + + + + + documented in this encounter Visit Diagnoses Not on filedocumented in this encounter"
--- OUTSIDE RECORDS SUMMARY | ~2019-01-28 | XMS | Encounter Summary ---
Demographics + + + | Address | [address] [facility] | | | [place] [address] | + + + | Home Phone [...] [place], [place] | | | | | [address] | | + + + + + Care Team Providers + +------+ + | Care Body Maker Machine Setter Name | Role | Phone | + +------+ + PCP | Unavailable | + +------+ + Encounter Details +--------+ + + + + | Date | Type | Department | Care Team | Description | +--------+ + + + + | 03/12/ | Respiratory | | Other, Faculty | | | 2005 | Therapy | | [phone] | | +--------+ + + + + [...] [facility] | [address] | [place] | | | DIAGNOSTICS - | [address] | [address] | | | PULMONARY FUNCTION | | | | + + + + + documented in this encounter Visit Diagnoses Not on filedocumented in this encounter"
--- OUTSIDE RECORDS SUMMARY | ~2019-01-28 | XMS | Encounter Summary ---
Demographics + + + | Address | [address] [facility] | | | [place] [address] | + + + | Home Phone [...] Yanni Antoine | ECON | [address] | | | | | [place], [place] | | | | | [address] | | + + + + + Care Team Providers + +------+ + | Care Power System Operator Name | Role | Phone | + +------+ + PCP | Unavailable | + +------+ + Encounter Details +--------+ + + + + | Date | Type | Department | Care Team | Description | +--------+ + + + + | 03/06/ | Respiratory | | Other, Faculty | | | 2005 | Therapy | | [phone] | | +--------+ + + + + [...] | | | | | Y | RAINBOW TROUT FARM MANAGER | | | | + + [...] + + | [facility] | [address] | [place] | | | DIAGNOSTICS - | [address] | [address] | | | PULMONARY FUNCTION | | | | + + + + + documented in this encounter Visit Diagnoses Not on filedocumented in this encounter"
--- OUTSIDE RECORDS SUMMARY | ~2019-01-28 | XMS | Encounter Summary ---
Demographics + + + | Address | [address] [facility] | | | [place] [address] | + + + | Home Phone [...] [place], [place] | | | | | [address] | | + + + + + Care Team Providers + +------+ + | Care Haul Cane Brakeman Name | Role | Phone | + +------+ + PCP | Unavailable | + +------+ + Encounter Details +--------+ + + + + | Date | Type | Department | Care Team | Description | +--------+ + + + + | 03/16/ | Respiratory | | Other, Faculty | | | 2005 | Therapy | | [phone] | | +--------+ + + + + [...] | | | | | Y | MARKETING WRITER | | | | + + [...] [facility] | [address] | [place] | | | DIAGNOSTICS - | [address] | [address] | | | PULMONARY FUNCTION | | | | + + + + + documented in this encounter Visit Diagnoses Not on filedocumented in this encounter"
--- OUTSIDE RECORDS SUMMARY | ~2019-01-28 | XMS | Encounter Summary ---
Demographics + + + | Address | [address] [facility] | | | [place] [address] | + + + | Home Phone [...] [place], [place] | | | | | [address] | | + + + + + Care Team Providers + +------+ + | Care It Field Technician Name | Role | Phone | + +------+ + PCP | Unavailable | + +------+ + Encounter Details +--------+ + + + + | Date | Type | Department | Care Team | Description | +--------+ + + + + | 03/06/ | Respiratory | | Other, Faculty | | | 2005 | Therapy | | [phone] | | +--------+ + + + + [...] | | | | | | Beni, CASH MANAGEMENT ASSOCIATE | | | | + + [...] + + + | [facility] | [address] | [facility] [place] | | | DIAGNOSTICS - | [address] | [address] | | | PULMONARY FUNCTION | | | | + + + + + documented in this encounter Visit Diagnoses Not on filedocumented in this encounter"
--- OUTSIDE RECORDS SUMMARY | ~2019-01-28 | XMS | Encounter Summary ---
Demographics + + + | Address | [address] [facility] | | | [place] [address] | + + + | Home Phone [...] [place], [place] | | | | | [address] | | + + + + + Care Team Providers + +------+ + | Care Capsule Maker Name | Role | Phone | + +------+ + PCP | Unavailable | + +------+ + Encounter Details +--------+ + + + + | Date | Type | Department | Care Team | Description | +--------+ + + + + | 02/27/ | Respiratory | | Other, Faculty | | | 2005 | Therapy | | [phone] | | +--------+ + + + + [...] [facility] | [address] | [place], [place] | | | DIAGNOSTICS - | [address] | [address] | | | PULMONARY FUNCTION | | | | + + + + + documented in this encounter Visit Diagnoses Not on filedocumented in this encounter"
--- OUTSIDE RECORDS SUMMARY | ~2019-01-28 | XMS | Encounter Summary ---
Demographics + + + | Address | [address] [facility] | | | [place] [address] | + + + | Home Phone [...] [place], [place] | | | | | [address] | | + + + + + Care Team Providers + +------+ + | Care Bi Technical Lead Name | Role | Phone | + +------+ + PCP | Unavailable | + +------+ + Encounter Details +--------+ + + + + | Date | Type | Department | Care Team | Description | +--------+ + + + + | 03/15/ | Respiratory | | Other, Faculty | | | 2005 | Therapy | | [phone] | | +--------+ + + + + [...] [facility] | [address] | [place], [place] | | | DIAGNOSTICS - | [address] | [address] | | | PULMONARY FUNCTION | | | | + + + + + documented in this encounter Visit Diagnoses Not on filedocumented in this encounter"
--- OUTSIDE RECORDS SUMMARY | ~2019-01-28 | XMS | Encounter Summary ---
Demographics + + + | Address | [address] [facility] | | | [place] [address] | + + + | Home Phone [...] [place], [place] | | | | | [address] | | + + + + + Care Team Providers + +------+ + | Care Clay Puddler Name | Role | Phone | + +------+ + PCP | Unavailable | + +------+ + Encounter Details +--------+ + + + + | Date | Type | Department | Care Team | Description | +--------+ + + + + | 03/19/ | Respiratory | | Other, Faculty | | | 2005 | Therapy | | [phone] | | +--------+ + + + + [...] [facility] | [address] | [place], [place] | | | DIAGNOSTICS - | [address] | [address] | | | PULMONARY FUNCTION | | | | + + + + + documented in this encounter Visit Diagnoses Not on filedocumented in this encounter"
--- OUTSIDE RECORDS SUMMARY | ~2019-01-28 | XMS | Encounter Summary ---
Demographics + + + | Address | [address] [facility] | | | [place] [address] | + + + | Home Phone [...] [place], [place] | | | | | [address] | | + + + + + Care Team Providers + +------+ + | Care Saturator Tender Name | Role | Phone | + +------+ + PCP | Unavailable | + +------+ + Encounter Details +--------+ + + + + | Date | Type | Department | Care Team | Description | +--------+ + + + + | 03/06/ | Respiratory | | Other, Faculty | | | 2005 | Therapy | | [phone] | | +--------+ + + + + [...] Bazan, | | | | | | BUCKLE STRAP PUNCHER | | | | + + + [...] [facility] | [address] | [place] | | | DIAGNOSTICS - | [address] | [address] | | | PULMONARY FUNCTION | | | | + + + + + documented in this encounter Visit Diagnoses Not on filedocumented in this encounter"
--- OUTSIDE RECORDS SUMMARY | ~2019-01-28 | XMS | Encounter Summary ---
Demographics + + + | Address | [address] [facility] | | | [place] [address] | + + + | Home Phone [...] [place], [place] | | | | | [address] | | + + + + + Care Team Providers + +------+ + | Care Core Setter Name | Role | Phone | + +------+ + PCP | Unavailable | + +------+ + Encounter Details +--------+ + + + + | Date | Type | Department | Care Team | Description | +--------+ + + + + | 03/03/ | Respiratory | | Other, Faculty | | | 2005 | Therapy | | [phone] | | +--------+ + + + + [...] | | | | | Glenn Carroll BUSINESS CONTINUITY PLANNER | | | | + + + [...] | DIAGNOSTICS - | [address] | [address] | | | PULMONARY FUNCTION | | | | + + + + + documented in this encounter Visit Diagnoses Not on filedocumented in this encounter"
--- OUTSIDE RECORDS SUMMARY | ~2019-01-28 | XMS | Encounter Summary ---
Demographics + + + | Address | [address] [facility] | | | [place] [address] | + + + | Home Phone [...] [place], [place] | | | | | [address] | | + + + + + Care Team Providers + +------+ + | Care Environmental Engineering Aide Name | Role | Phone | [...] as of this encounter Progress Notes Interface, Mail Machine Operator In - 02/19/2006 2:08 AM PDT [id number] ASHLEY Peck [id number] Clinic Date: 02/15/2006 Clinic: Operative Report Preoperative [...] it. Thai De La Garza M.D., F.A.C.S. household chores @ senior partner Service [facility] / [id number] / [id number] / [id number] / [id number] documented i n this encounter Plan of Treatment Not on filedocumented as of this encounter Visit Diagnoses Not on filedocumented in this encounter"
--- OUTSIDE RECORDS SUMMARY | ~2019-01-28 | XMS | Encounter Summary ---
Demographics + + + | Address | [address] [facility] | | | [place] [address] | + + + | Home Phone [...] [place], [place] | | | | | [address] | | + + + + + Care Team Providers + +------+ + | Care Bathing Suit Maker Name | Role | Phone | + +------+ + PCP | Unavailable | + +------+ + Encounter Details +--------+ + + + + | Date | Type | Department | Care Team | Description | +--------+ + + + + | 02/24/ | Respiratory | | Other, Faculty | | | 2005 | Therapy | | [phone] | | +--------+ + + + + [...] [facility] | [address] | [place], [place] | | | DIAGNOSTICS - | [address] | [address] | | | PULMONARY FUNCTION | | | | + + + + + documented in this encounter Visit Diagnoses Not on filedocumented in this encounter"
--- OUTSIDE RECORDS SUMMARY | ~2019-01-28 | XMS | Encounter Summary ---
Demographics + + + | Address | [address] [facility] | | | [place] [address] | + + + | Home Phone [...] [place], [place] | | | | | [address] | | + + + + + Care Team Providers + +------+ + | Care Rn Neonatal Icu Name | Role | Phone | + +------+ + PCP | Unavailable | + +------+ + Encounter Details +--------+ + + + + | Date | Type | Department | Care Team | Description | +--------+ + + + + | 03/08/ | Respiratory | | Other, Faculty | | | 2005 | Therapy | | [phone] | | +--------+ + + + + [...] [facility] | [address] | [place], [place] | | | DIAGNOSTICS - | [address] | [address] | | | PULMONARY FUNCTION | | | | + + + + + documented in this encounter Visit Diagnoses Not on filedocumented in this encounter"
--- OUTSIDE RECORDS SUMMARY | ~2019-01-28 | XMS | Encounter Summary ---
Demographics + + + | Address | [address] [facility] | | | [place] [address] | + + + | Home Phone [...] [place], [place] | | | | | [address] | | + + + + + Care Team Providers + +------+ + | Care Clinical Phlebotomist Name | Role | Phone | + +------+ + PCP | Unavailable | + +------+ + Encounter Details +--------+ + + + + | Date | Type | Department | Care Team | Description | +--------+ + + + + | 02/19/ | Respiratory | | Other, Faculty | | | 2005 | Therapy | | [phone] | | +--------+ + + + + [...] | | | | | Y | OVERHEAD LINE WORKER | | | | + + [...] | DIAGNOSTICS - | [address] | [address] | | | PULMONARY FUNCTION | | | | + + + + + documented in this encounter Visit Diagnoses Not on filedocumented in this encounter"
--- OUTSIDE RECORDS SUMMARY | ~2019-01-28 | XMS | Encounter Summary ---
Demographics + + + | Address | [address] [facility] | | | [place] [address] | + + + | Home Phone [...] [place], [place] | | | | | [address] | | + + + + + Care Team Providers + +------+ + | Care Image Assembler Name | Role | Phone | + +------+ + PCP | Unavailable | + +------+ + Encounter Details +--------+ + + + + | Date | Type | Department | Care Team | Description | +--------+ + + + + | 03/18/ | Respiratory | | Other, Faculty | | | 2005 | Therapy | | [phone] | | +--------+ + + + + [...] | | | | | Y | WATERWORKS PUMP STATION OPERATOR | | | | + + [...] [facility] | [address] | [place] | | | DIAGNOSTICS - | [address] | [address] | | | PULMONARY FUNCTION | | | | + + + + + documented in this encounter Visit Diagnoses Not on filedocumented in this encounter"
--- OUTSIDE RECORDS SUMMARY | ~2019-01-28 | XMS | Encounter Summary ---
Demographics + + + | Address | [address] [facility] | | | [place] [address] | + + + | Home Phone [...] [place], [place] | | | | | [address] | | + + + + + Care Team Providers + +------+ + | Care Vamp Presser Name | Role | Phone | + +------+ + PCP | Unavailable | + +------+ + Encounter Details +--------+ + + + + | Date | Type | Department | Care Team | Description | +--------+ + + + + | 03/14/ | Respiratory | | Other, Faculty | | | 2005 | Therapy | | [phone] | | +--------+ + + + + [...] | | GAS/HUMIDIT | OXYGEN. Viridiana Yu [employer] DEPLOYMENT LEAD | | | | | Y |Viridiana Yu [employer] DE[employer] | | | | + + + [...] [facility] | [address] | [place], [place] | | | DIAGNOSTICS - | [address] | [address] | | | PULMONARY FUNCTION | | | | + + + + + documented in this encounter Visit Diagnoses Not on filedocumented in this encounter"
--- OUTSIDE RECORDS SUMMARY | ~2019-01-28 | XMS | Encounter Summary ---
Demographics + + + | Address | [address] [facility] | | | [place] [address] | + + + | Home Phone [...] | Yanni Antoine | ECON | [address] | | | | | [place], [place] | | | | | [address] | | + + + + + Care Team Providers + +------+ + | Care Food Scientist Name | Role | Phone | + +------+ + PCP | Unavailable | + +------+ + Encounter Details +--------+ + + + + | Date | Type | Department | Care Team | Description | +--------+ + + + + | 02/28/ | Respiratory | | Other, Faculty | | | 2005 | Therapy | | [phone] | | +--------+ + + + + [...] + + + | [facility] | [address] | [place], [place] | | | DIAGNOSTICS - | [address] | [address] | | | PULMONARY FUNCTION | | | | + + + + + documented in this encounter Visit Diagnoses Not on filedocumented in this encounter"
--- OUTSIDE RECORDS SUMMARY | ~2019-01-28 | XMS | Encounter Summary ---
Demographics + + + | Address | [address] [facility] [facility] | | | [place] [address] | + + + | Home Phone [...] [place], [place] | | | | | [address] | | + + + + + Care Team Providers + +------+ + | Care Insurance Appraiser Name | Role | Phone | + +------+ + PCP | Unavailable | + +------+ + Encounter Details +--------+ + + + + | Date | Type | Department | Care Team | Description | +--------+ + + + + | 03/14/ | Respiratory | | Other, Faculty | | | 2005 | Therapy | | [phone] | | +--------+ + + + + [...] | | GAS/HUMIDIT | OXYGEN. 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
--- OUTSIDE RECORDS SUMMARY | ~2019-01-28 | XMS | Encounter Summary ---
Demographics + + + | Address | [address] [facility] | | | [place] [address] | + + + | Home Phone [...] [place], [place] | | | | | [address] | | + + + + + Care Team Providers + +------+ + | Care Regional Property Manager Name | Role | Phone | + +------+ + PCP | Unavailable | + +------+ + Encounter Details +--------+ + + + + | Date | Type | Department | Care Team | Description | +--------+ + + + + | 03/04/ | Respiratory | | Other, Faculty | | | 2005 | Therapy | | [phone] | | +--------+ + + + + [...] + + + | [facility] | [address] | [place] | | | DIAGNOSTICS - | [address] | [address] | | | PULMONARY FUNCTION | | | | + + + + + documented in this encounter Visit Diagnoses Not on filedocumented in this encounter"
--- OUTSIDE RECORDS SUMMARY | ~2019-01-28 | XMS | Encounter Summary ---
Demographics + + + | Address | [address] [facility] | | | [place] [address] | + + + | Home Phone [...] [place], [place] | | | | | [address] | | + + + + + Care Team Providers + +------+ + | Care Cutting Machine Tender Decorative Name | Role | Phone | + +------+ + PCP | Unavailable | + +------+ + Encounter Details +--------+ + + + + | Date | Type | Department | Care Team | Description | +--------+ + + + + | 03/07/ | Respiratory | | Other, Faculty | | | 2005 | Therapy | | [phone] | | +--------+ + + + + [...] Sethi, | | | | | | SECOND BAKER | | | | + + + [...] [facility] | [address] | [facility] [place] | | | DIAGNOSTICS - | [address] | [address] | | | PULMONARY FUNCTION | | | | + + + + + documented in this encounter Visit Diagnoses Not on filedocumented in this encounter"
--- OUTSIDE RECORDS SUMMARY | ~2019-01-28 | XMS | Encounter Summary ---
Demographics + + + | Address | [address] [facility] | | | [place] [address] | + + + | Home Phone [...] [place], [place] | | | | | [address] | | + + + + + Care Team Providers + +------+ + | Care Remelt Operator Name | Role | Phone | [...] [address] | | | | | | [facility] | | | | | | [place], [place] | | | | | | [address] | | | +--------+ + + + [...] | | | Patient: MIGUEL A RAMIREZ [employer] Rec: [id number] Sex M Bdate: 1965 | | Date/Time Data | | Entered Into [facility] | | Anesth PostOp | | Surgery Date [id number] 02/18/06 10:10 | | Anesthesiologist CHENTE GOVEA 02/18/06 10:10 | | Resident Anesthesiolog RENITA ANDREWS 02/18/06 10:10 | | | + + documented in this encounter Visit Diagnoses Not on filedocumented in this encounter"
--- OUTSIDE RECORDS SUMMARY | ~2019-01-28 | XMS | Encounter Summary ---
Demographics + + + | Address | [address] [facility] | | | [place] [address] | + + + | Home Phone [...] [place], [place] | | | | | [address] | | + + + + + Care Team Providers + +------+ + | Care Workday Senior Associate Name | Role | Phone | + +------+ + PCP | Unavailable | + +------+ + Encounter Details +--------+ + + + + | Date | Type | Department | Care Team | Description | +--------+ + + + + | 03/19/ | Respiratory | | Other, Faculty | | | 2005 | Therapy | | [phone] | | +--------+ + + + + [...] [facility] | [address] | [place], [place] | | | DIAGNOSTICS - | [address] | [address] | | | PULMONARY FUNCTION | | | | + + + + + documented in this encounter Visit Diagnoses Not on filedocumented in this encounter"
--- OUTSIDE RECORDS SUMMARY | ~2019-01-28 | XMS | Encounter Summary ---
Demographics + + + | Address | [address] [facility] | | | [place] [address] | + + + | Home Phone [...] [place], [place] | | | | | [address] | | + + + + + Care Team Providers + +------+ + | Care Color Coater Name | Role | Phone | + [...]
--- OUTSIDE RECORDS SUMMARY | ~2019-01-28 | XMS | Encounter Summary ---
Demographics + + + | Address | [address] [facility] | | | [place] [address] | + + + | Home Phone [...] [place], [place] | | | | | [address] | | + + + + + Care Team Providers + +------+ + | Care Engineering Writer Name | Role | Phone | + +------+ + PCP | Unavailable | + +------+ + Encounter Details +--------+ + + + + | Date | Type | Department | Care Team | Description | +--------+ + + + + | 02/28/ | Respiratory | | Other, Faculty | | | 2005 | Therapy | | [phone] | | +--------+ + + + + [...] [facility] | [address] | [place], [place] | | | DIAGNOSTICS - | [address] | [address] | | | PULMONARY FUNCTION | | | | + + + + + documented in this encounter Visit Diagnoses Not on filedocumented in this encounter"
--- OUTSIDE RECORDS SUMMARY | ~2019-01-28 | XMS | Encounter Summary ---
Demographics + + + | Address | [address] [facility] | | | [place] [address] | + + + | Home Phone [...] [place], [place] | | | | | [address] | | + + + + + Care Team Providers + +------+ + | Care Engraver Jewelry Name | Role | Phone | + +------+ + PCP | Unavailable | + +------+ + Encounter Details +--------+ + + + + | Date | Type | Department | Care Team | Description | +--------+ + + + + | 02/27/ | Respiratory | | Other, Faculty | | | 2005 | Therapy | | [phone] | | +--------+ + + + + [...] [facility] | [address] | [place], [place] | | | DIAGNOSTICS - | [address] | [address] | | | PULMONARY FUNCTION | | | | + + + + + documented in this encounter Visit Diagnoses Not on filedocumented in this encounter"
--- OUTSIDE RECORDS SUMMARY | ~2019-01-28 | XMS | Encounter Summary ---
Demographics + + + | Address | [address] [facility] | | | [place] [address] | + + + | Home Phone [...] [place], [place] | | | | | [address] | | + + + + + Care Team Providers + +------+ + | Care Mercerizing Range Controller Name | Role | Phone | + +------+ + PCP | Unavailable | + +------+ + Encounter Details +--------+ + + + + | Date | Type | Department | Care Team | Description | +--------+ + + + + | 02/27/ | Respiratory | | Other, Faculty | | | 2005 | Therapy | | [phone] | | +--------+ + + + + [...] [facility] | [address] | [place], [place] | | | DIAGNOSTICS - | [address] | [address] | | | PULMONARY FUNCTION | | | | + + + + + documented in this encounter Visit Diagnoses Not on filedocumented in this encounter"
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
--- OUTSIDE RECORDS SUMMARY | ~2019-01-28 | XMS | Encounter Summary ---
Demographics + + + | Address | [address] [facility] | | | [place] [address] | + + + | Home Phone [...] [place], [place] | | | | | [address] | | + + + + + Care Team Providers + +------+ + | Care Net Developer Programmer Name | Role | Phone | + +------+ + PCP | Unavailable | + +------+ + Encounter Details +--------+ + + + + | Date | Type | Department | Care Team | Description | +--------+ + + + + | 03/03/ | Respiratory | | Other, Faculty | | | 2005 | Therapy | | [phone] | | +--------+ + + + + [...] + + + | [facility] | [address] | [place], [place] | | | DIAGNOSTICS - | [address] | [address] | | | PULMONARY FUNCTION | | | | + + + + + documented in this encounter Visit Diagnoses Not on filedocumented in this encounter"
--- OUTSIDE RECORDS SUMMARY | ~2019-01-28 | XMS | Encounter Summary ---
Demographics + + + | Address | [address] [facility] | | | [place] [address] | + + + | Home Phone [...] [place], [place] | | | | | [address] | | + + + + + Care Team Providers + +------+ + | Care Vocational Horticulture Instructor Name | Role | Phone | + +------+ + PCP | Unavailable | + +------+ + Encounter Details +--------+ + + + + | Date | Type | Department | Care Team | Description | +--------+ + + + + | 03/07/ | Respiratory | | Other, Faculty | | | 2005 | Therapy | | [phone] | | +--------+ + + + + [...] Sethi, | | | | | | CHILD HEALTH ASSOCIATE | | | | + + [...] [facility] | [address] | [facility] [place] | | | DIAGNOSTICS - | [address] | [address] | | | PULMONARY FUNCTION | | | | + + + + + documented in this encounter Visit Diagnoses Not on filedocumented in this encounter"
--- OUTSIDE RECORDS SUMMARY | ~2019-01-28 | XMS | Encounter Summary ---
Demographics + + + | Address | [address] [facility] | | | [place] [address] | + + + | Home Phone [...] [place], [place] | | | | | [address] | | + + + + + Care Team Providers + +------+ + | Care Heart Coordinator Name | Role | Phone | + +------+ + PCP | Unavailable | + +------+ + Encounter Details +--------+ + + + + | Date | Type | Department | Care Team | Description | +--------+ + + + + | 03/04/ | Respiratory | | Other, Faculty | | | 2005 | Therapy | | [phone] | | +--------+ + + + + [...] Mac, | | | | | | SPINNER CONTINUOUS | | | | + + + [...] [facility] | [address] | [place], [place] | | | DIAGNOSTICS - | [address] | [address] | | | PULMONARY FUNCTION | | | | + + + + + documented in this encounter Visit Diagnoses Not on filedocumented in this encounter"
--- OUTSIDE RECORDS SUMMARY | ~2019-01-28 | XMS | Encounter Summary ---
Demographics + + + | Address | [address] [facility] | | | [place] [address] | + + + | Home Phone [...] [place], [place] | | | | | [address] | | + + + + + Care Team Providers + +------+ + | Care Director Fundraising Name | Role | Phone | + +------+ + PCP | Unavailable | + +------+ + Encounter Details +--------+ + + + + | Date | Type | Department | Care Team | Description | +--------+ + + + + | 03/02/ | Respiratory | | Other, Faculty | | | 2005 | Therapy | | [phone] | | +--------+ + + + + [...] [facility] | [address] | [place], [place] | | | DIAGNOSTICS - | [address] | [address] | | | PULMONARY FUNCTION | | | | + + + + + documented in this encounter Visit Diagnoses Not on filedocumented in this encounter"
--- OUTSIDE RECORDS SUMMARY | ~2019-01-28 | XMS | Encounter Summary ---
Demographics + + + | Address | [address] | | | [place] [address] | + + + | Home Phone [...] + + + + + | Yanni Antione | ECON | [address] | | | | | [place], [place] | | | | | [address] | | + + + + + Care Team Providers + +------+ + | Care Electro Plater Name | Role | Phone | + [...]
--- OUTSIDE RECORDS SUMMARY | ~2019-01-28 | XMS | Encounter Summary ---
Demographics + + + | Address | [address] | | | [place] [address] | + + + | Home Phone [...] [place], [place] | | | | | [address] | | + + + + + Care Team Providers + +------+ + | Care Security Officer Name | Role | Phone | + +------+ + PCP | Unavailable | + +------+ + Encounter Details +--------+ + + + + | Date | Type | Department | Care Team | Description | +--------+ + + + + | 03/17/ | Respiratory | | Other, Faculty | | | 2005 | Therapy | | [phone] | | +--------+ + + + + [...] | | | | | Y | MAKEUP SALES ADVISOR | | | | + + [...] [facility] | [address] | [place] | | | DIAGNOSTICS - | [address] | [address] | | | PULMONARY FUNCTION | | | | + + + + + documented in this encounter Visit Diagnoses Not on filedocumented in this encounter"
--- OUTSIDE RECORDS SUMMARY | ~2019-01-28 | XMS | Encounter Summary ---
Demographics + + + | Address | [address] | | | [place] [address] | + + + | Home Phone [...] [place], [place] | | | | | [address] | | + + + + + Care Team Providers + +------+ + | Care Wine Blender Name | Role | Phone | + +------+ + PCP | Unavailable | + +------+ + Encounter Details +--------+ + + + + | Date | Type | Department | Care Team | Description | +--------+ + + + + | 03/09/ | Respiratory | | Other, Faculty | | | 2005 | Therapy | | [phone] | | +--------+ + + + + [...] | | | | OXYGEN. Madeline Whiting, RN FORENSIC | | | | + + + [...] [facility] | [address] | [place], [place] | | | DIAGNOSTICS - | [address] | [address] | | | PULMONARY FUNCTION | | | | + + + + + documented in this encounter Visit Diagnoses Not on filedocumented in this encounter"
--- OUTSIDE RECORDS SUMMARY | ~2019-01-28 | XMS | Encounter Summary ---
Demographics + + + | Address | [address] | | | [place] [address] | + + + | Home Phone [...] [place], [place] | | | | | [address] | | + + + + + Care Team Providers + +------+ + | Care Cafeteria Assistant Name | Role | Phone | + +------+ + PCP | Unavailable | + +------+ + Encounter Details +--------+ + + + + | Date | Type | Department | Care Team | Description | +--------+ + + + + | 03/17/ | Respiratory | | Other, Faculty | | | 2005 | Therapy | | [phone] | | +--------+ + + + + [...] | | | | | Y | TOPOGRAPHICAL ENGINEER | | | | + + [...] [facility] | [address] | [place] | | | DIAGNOSTICS - | [address] | [address] | | | PULMONARY FUNCTION | | | | + + + + + documented in this encounter Visit Diagnoses Not on filedocumented in this encounter"
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
== END 2019-01-28 22:53 | disposition home or self-care (01) ==
LOC: ED 22:09
DX: B37.0 Candidal stomatitis (principal); F17.200 Nicotine dependence, unspecified, uncomplicated; Z79.899 Other long term (current) drug therapy
CPT/HCPCS: 99282

== ENCOUNTER 2019-03-11 22:47 | Emergency (ER) | payer OTHER ==
[~2019-03-11] VITALS: Ht 180.3 cm; Wt 70.3 kg
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
== END 2019-03-11 23:56 | disposition home or self-care (01) ==
LOC: ED 22:47
DX: K14.0 Glossitis (principal); F17.200 Nicotine dependence, unspecified, uncomplicated
CPT/HCPCS: 99282

== ENCOUNTER 2019-03-16 01:57 | Emergency (ER) | payer OTHER ==
[~2019-03-16] VITALS: Ht 180.3 cm; Wt 70.3 kg
--- OUTSIDE RECORDS SUMMARY | 2019-03-16 02:00 | XMS ---
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 07/05/2018 15:28 - Patient eloped before treatment completed. Details: PATIENT LEFT AMA BEFORE TREATMENT COULD BE PROVIDED. CRITERIA MET - Group Notification - [facility] - Has Care Guidelines - [facility] - 2 Visits in 30 Days CARE PROVIDERS TONI GUTIERREZ [facility] 05/28/2018-Current PHONE: Unknown YARON WAGGONER Nurse Practitioner 03/12/2019-Current PHONE: [phone] [facility] Current PHONE: [phone] Hector has no Care Guidelines for this patient. Care History Medical/Surgical 03/12/[address] [facility] \T\middot;\T\nbsp; PATIENT IS A [facility] MEMBER. \T\middot;\T\nbsp; PLEASE REFER PATIENT TO [facility] FOR NON EMERGENT MEDICAL NEEDS. \T\middot;\ T\nbsp; [facility] CAN SEE PATIENTS SAME DAY FOR APTS IF PATIENT CALLS FIRST THING IN THE MORNING. 05/28/[address] [facility] - Patient contact number is no longer in service. - Please refer patient to [facility] Chemical Dependency Treatment . - Patient can be seen by PCP Dr Gutierrez as walk in if patient calls first thing in the morning to [facility]. - Please refer patient to [facility] for any and all non emergent visits. E.D. VISIT COUNT (12 MO.) 7 [facility]. TOTAL 7 NOTE: Visits indicate total known visits. ED/UCC VISIT TRACKING (12 MO.) 03/16/2019 01:57 [facility] [place] TYPE[place] Emergency COMPLAINT: - ANKLE INJURY 03/11/2019 22:48 [facility] [place] TYPE[place] Emergency COMPLAINT: - THRUSH DIAGNOSES: - Nicotine dependence, unspecified, uncomplicated - Other lesions of oral mucosa - Glossitis 01/28/2019 22:10 [facility] [place] TYPE: Emergency COMPLAINT: - TONGUE PAIN DIAGNOSES: - Nicotine dependence, unspecified, uncomplicated - Candidal stomatitis - Other retirement (current) drug therapy 01/26/2019 00:31 [facility] [...] intoxication, unspecified - Candidal stomatitis - Other tank terminal gauger (current) drug therapy - Acute pharyngitis, unspecified - Nicotine dependence, unspecified, uncomplicated INPATIENT VISIT TRACKING (12 MO.) No inpatient visits to display in this time frame [email or web address]
== END 2019-03-16 03:20 | disposition home or self-care (01) ==
LOC: ED 01:57
DX: M25.562 Pain in left knee (principal); G89.29 Other chronic pain; F17.200 Nicotine dependence, unspecified, uncomplicated
CPT/HCPCS: 73610; 99283

== ENCOUNTER 2019-05-12 00:08 | Emergency (ER) | payer OTHER ==
[~2019-05-12] VITALS: Ht 180.3 cm; Wt 65.0 kg
--- OUTSIDE RECORDS SUMMARY | 2019-05-12 00:10 | XMS ---
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 Details: PATIENT LEFT AMA BEFORE TREATMENT COULD BE PROVIDED. CRITERIA MET - Group Notification - 6 ED Visits in 6 Months - [facility] - Has Care Guidelines CARE PROVIDERS TONI GUTIERREZ [facility] 05/28/2018-Current PHONE: Unknown YARON WAGGONER Nurse Practitioner 03/12/2019-Current PHONE: [phone] [facility] Current PHONE: [phone] Hector has no Care Guidelines for this patient. Care History Medical/Surgical 04/06/2019 [facility] - IF PATIENT IS SEEN IN ED -DURING BUSINESS HOURS DURING THE WEEK PLEASE CONTACT W- MICHAEL [phone]. - [facility] IS UNABLE TO CONTACT PATIENT BY PHONE AND PATIENT DOES NOT HAVE A STABLE CONTACT ADDRESS. 03/12/2019 [facility] \T\middot;\T\nbsp; PATIENT IS A [facility] [employer] MEMBER. \T\middot;\T\nbsp; PLEASE REFER PATIENT TO [facility] FOR NON EMERGENT MEDICAL NEEDS. \T\middot;\ T\nbsp; [facility] CAN SEE PATIENTS SAME DAY FOR APTS IF PATIENT CALLS FIRST THING IN THE MORNING. 05/28/2018 [facility] - Patient contact number is no longer in service. - Please refer patient to [facility] Chemical Dependency Treatment [phone]. - Patient can be seen by PCP Dr Gutierrez as walk in if patient calls first thing in the morning to [facility]. - Please refer patient to [facility] for any and all non emergent visits. E.D. VISIT COUNT (12 MO.) 9 [facility]. TOTAL 9 NOTE: Visits indicate total known visits. ED/C VISIT TRACKING (12 MO.) 05/12/2019 00:08 [facility] [place] TYPE: Emergency COMPLAINT: - THRUSH 04/04/2019 23:42 [facility] [place] TYPE: Emergency COMPLAINT: - MOUTH ISSUE DIAGNOSES: - Taylor [conscious simulation] - Nicotine dependence, unspecified, uncomplicated - Glossodynia 03/16/2019 01:57 [facility] [place] TYPE: Emergency COMPLAINT: - ANKLE INJURY DIAGNOSES: - Nicotine dependence, unspecified, uncomplicated - Pain in left knee - Other chronic pain 03/11/2019 22:48 [facility] [place] TYPE: Emergency COMPLAINT: - THRUSH DIAGNOSES: - Nicotine dependence, unspecified, uncomplicated - Other lesions of oral mucosa - Glossitis 01/28/2019 22:10 [facility] [place] TYPE: Emergency COMPLAINT: - TONGUE PAIN DIAGNOSES: - Nicotine dependence, unspecified, uncomplicated - Candidal stomatitis - 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
== END 2019-05-12 01:31 | disposition home or self-care (01) ==
LOC: ED 00:08
DX: K14.6 Glossodynia (principal); G89.29 Other chronic pain; F10.10 Alcohol abuse, uncomplicated; F17.200 Nicotine dependence, unspecified, uncomplicated
CPT/HCPCS: 99283